=== PATIENT | male | born 1945 | race Caucasian/White ===

== ENCOUNTER 2018-03-25 11:33 | Inpatient (IN) | payer MEDICARE, OTHER, SELFPAY ==
[2018-03-25] VITALS (10 sets, daily range): BP systolic 138–160; BP diastolic 82–111; PULSE 86–109; RESP 16–100; TEMP 36.6–36.9; O2SAT 85–100; BMI 21.6; BMI 21.1
[2018-03-25] MEDS: Ipratropium/Albuterol Sulfate 3 ML AMPUL.NEB INHALATION ×2 (11:55→19:04)
--- NOTE | 2018-03-25 12:02 | EKG12_ITS ---
Test Reason : SOB Blood Pressure : / mmHG Vent. Rate : 096 BPM Atrial Rate : 096 BPM P-R Int : 154 ms QRS Dur : 094 ms QT Int : 358 ms P-R-T Axes : 081 058 080 degrees QTc Int : 452 ms Normal sinus rhythm Normal ECG Confirmed by ASHELY GONSALEZ, KODI ([id number]), food expeditor SAM CALIXTO ([id number]) on 03/29/2018 9:21:27 AM Referred By: ANGEL/JEFF Confirmed By:KODI LUND MD
--- NOTE | 2018-03-25 12:02 | RAD_ITS ---
STUDY: X-RAY CHEST REASON FOR EXAM: Male, 73 years old. Wheezing. TECHNIQUE: AP and lateral views of the chest. COMPARISON: Comparison is made with prior examination dated May 27, 2016. FINDINGS: EKG electrodes are seen. There is hyperinflation of the lungs consistent with chronic obstructive lung disease (COPD). Mild increased markings at the left lung base suggestive of a linear atelectasis. There is blunting of the right costophrenic angle. Normal size heart. Normal mediastinum and rodriguez. There is prominence of the pulmonary hilar arteries without peripheral pulmonary vascular congestion, suggesting pulmonary hypertension. Normal visualized aortic arch and descending thoracic aorta. There is a dextroscoliosis of the thoracic spine. Normal visualized ribs, clavicles, and shoulders. There is no demonstrated abnormality of the visualized soft tissue structures of the upper abdomen. RAD/Chest PA and Lateral IMPRESSION: Hyperinflation. Linear atelectasis at the left lung base. Electronically Signed: Bob Jolley MD at 14:59 EST Tel [phone], Service support ,
--- NOTE | 2018-03-25 12:08 | ED.DCSUM_ITS ---
- ER Visit Summary Date of Service: 03/25/18 Chief Complaint: Generalized weakness History of Present Illness: The patient is a 73 M history of COPD not on home O2 also MS and I retention. Patient presents saying that he is just weak. He states he would not be here for his breathing he thinks at his baseline. However is hypoxic at 82%. He states he feels generally weak all over. He denies any fever. He denies any nausea, vomiting, diarrhea or melena. No dysuria. He does have a cough of sputum which she has had for some time. That is not new. He denies any chest or abdominal pain. He denies any trouble eating. Physical Examination: Older male vital signs stable blood pressure 160/111 afebrile. On oxygen is 100% nonrebreather mask. HEENT exam unremarkable moist weeks membranes. Neck nontender no JVD no lymphadenopathy. Lungs expiratory wheezing throughout both sides. Equal symmetrical. No rales or rhonchi. Heart regular rhythm no murmur appreciated. Abdomen soft nontender. Normal bowel sounds no peritoneal signs. Patient moving all 4 extremities. Calves are nontender without edema or cords. Neurologically is awake alert with no focal motor deficits. Test Results: X-ray shows chronic changes no acute process. EKG sinus rhythm rate of 96 no acute signs of ischemia nor dysrhythmia. CBC White count 8. Hemoglobin 14. No bands. Chemistries unremarkable sodium 132. Gap is 7. Creatinine 0.7. UA normal. Emergency Department Course and Treatment: Treated with albuterol and DuoNeb aerosols. IV Solu-Medrol and oxygen. We will repeat exams patient is doing better after aerosols and IV steroids. Has some mild wheezing. Off the oxygen no he desaturates into the 80s. We attempted to walk him states he is just too weak to even stand. Even at home has difficulty walking due to his MS but he can when he is healthy with assistance. Treatment Plan: I spoke to the hospitalist about admission. Disposition: Admission Impression: Acute generalized weakness with inability to walk Acute dyspnea with hypoxia Acute exacerbation of COPD History of MS This note was generated with [employer] dictation software. It may contain incorrect words, spelling, and punctuation that were not noted in review of the chart prior to signing ED Disposition - Plan for ED Patient: Chief Complaint: Shortness of Breath Referrals: Daquan Flores III, MD [Primary Care Provider] -
[2018-03-25] MEDS: MethylPREDNISolone 125 MG/2 ML Vial IV (12:28)
[2018-03-25 12:48] LABS: Absolute Lymphocyte Count 1.34 X10^3/ul (0.83-4.51); Absolute Neutrophil Count 6.3 X10^3/uL (2.0-7.7); Basophil# 0.03 X10^3/uL; Basophil% 0.4 % (0-1); Eosinophil# 0.13 X10^3/uL; Eosinophils% 1.5 % (0-5); Hematocrit 45.1 % (40-54); Hemoglobin 14.8 g/dl (13.0-16.5); Lymphocyte # 1.34 X10^3/ul (4.0); Lymphocyte % 15.8 % (19-41); Mean Corp Hgb Conc 32.8 g/gl (32-36); Mean Corpuscular Hgb 28.5 pg (27.0-32.0); Mean Corpuscular Volume 86.7 fL (80-94); Mean Platelet Vol. 10.4 fl (6.2-12.0); Monocyte# 0.74 X10^3/uL; Monocyte% 8.7 % (0-10); Neutrophil # 6.25 X10^3/uL (2.7-7.7); Neutrophil % 73.5 % (47-70); Platelet Count 274 K/mm3 (150-450); RBC Distribution Width CV 18.7 % (11.6-14.6); RBC Distribution Width SD 60.1 fl (35.1-43.9); White Blood Count 8.5 K/mm3 (4.4-11.0)
[2018-03-25 12:51] LABS: POSITIVE COUNT NO; POSITIVE DIFFERENTIAL NO; POSITIVE MORPHOLOGY NO
[2018-03-25 12:52] LABS: Anion Gap 7 (5-15); BUN 14 mg/dL (7-18); BUN/Creat Ratio 17.9 RATIO (10-20); Calcium,Total 9.2 mg/dL (8.5-10.1); Chloride 95 mmol/L (98-107); Creatinine, Serum 0.78 mg/dL (0.70-1.30); EST Glomerular Filtration Rate 104 mL/min (>60); Est Glom Filt Rate - Afr Amer 125 mL/min (>60); Estimated Creatinine Clearance 62.62 ml/min; Glucose 96 mg/dL (74-106); Potassium 4.7 mmol/L (3.5-5.1); Sodium Level 132 mmol/L (136-145)
[2018-03-25 14:27] LABS: Bacteria 0 SEEN /hpf (None Seen); Mucous, Urine 0 SEEN /hpf (<or=2+); Red Blood Cells-Urine 0 SEEN /hpf (0-5); Squamous Epithelial Cells - UA 0 SEEN /hpf (0-5)
[2018-03-25 14:35] LABS: Color, Urine Yellow (Yellow); Glucose, Dipstick Normal (Normal); Ketone-Dipstick 15 mg/dl (Negative); Leukocyte Esterase-Dipstick Negative /ul (Negative); Nitrite-Dipstick Negative (Negative); Occult Blood-Urine Negative /ul (Negative); Protein-Dipstick Negative (Negative); Specific Gravity, Urine 1.015 (1.002-1.030); Urine Bilirubin Dipstick Negative (Negative); Urine Clarity Cloudy (Clear); Urine Urobilinogen Normal (Normal)
[2018-03-25 14:41] LABS: Amorphous Sediment 1+; White Blood Cells 0-5 SEEN /hpf (0-5)
--- NOTE | 2018-03-25 15:21 | ED.RN ---
pts o2 removed per physician request. pt unable to ambulate d/t chronic weakness. pt's o2 sat dropped to 89% while sitting in the bed so oxygen replaced and physician aware.
--- NOTE | 2018-03-25 16:12 | HP.PCM_ITS ---
Problem List (1) PEG (percutaneous endoscopic gastrostomy) adjustment/replacement/removal Status: Resolved (2) Depression Status: Chronic Qualifiers: (3) Physical debility Status: Chronic (4) Hypertension Status: Chronic Qualifiers: (5) COPD (chronic obstructive pulmonary disease) Status: Chronic (6) Multiple sclerosis Status: Chronic (7) Acute respiratory failure Status: Acute (8) Empyema of right pleural space Status: Resolved (9) Dysphagia Status: Chronic Qualifiers: (10) Anemia Status: Chronic (11) BPH (benign prostatic hypertrophy) Status: Chronic (12) Vitamin D deficiency Status: Chronic (13) GERD (gastroesophageal reflux disease) Status: Chronic Qualifiers: (14) Ulcerative esophagitis Status: Chronic (15) Gout Status: Chronic Qualifiers: History of Present Illness Date of Admission: 03/25/18 Chief Complaint: Generalized weakness. The patient is a 73 year old M who presents emergency room due to progressive generalized weakness. He has a past medical history of multiple sclerosis, COPD, BPH, GERD, gout, hypertension, depression, physical debility, dysphagia. Ex- at bedside who is POA and caregiver states that patient a respiratory infection in February which was treated by his primary care physician. She reports he has been progressively weaker since that time. Today she states she was unable to help him with activities of daily living due to patient's weakness. Patient denies fever, chills. Denies urinary symptoms. Denies cough or other URI symptoms. He denies shortness of breath. Patient reports he has been sleeping more than normal. Denies decreased appetite or poor oral intake. Patient has been in rehab unit in the past for PT and wishes to return there this admission for strengthening. Past Medical History Past Medical History (Chronic Problems): Chronic Problems (Last Reviewed 01/08/18 @ 11:53 by Cleo Wagner) Depression (Chronic) Physical debility (Chronic) Hypertension (Chronic) COPD (chronic obstructive pulmonary disease) (Chronic) Multiple sclerosis (Chronic) Dysphagia (Chronic) Anemia (Chronic) BPH (benign prostatic hypertrophy) (Chronic) Vitamin D deficiency (Chronic) GERD (gastroesophageal reflux disease) (Chronic) Ulcerative esophagitis (Chronic) Gout (Chronic) Medical History: Medical History (Last Reviewed 01/08/18 @ 11:53 by Cleo Wagner) Depression (Chronic) F32.9 Physical debility (Chronic) R53.81 Hypertension (Chronic) I10 COPD (chronic obstructive pulmonary disease) (Chronic) J44.9 Multiple sclerosis (Chronic) G35 Acute respiratory failure (Acute) J96.00 Dysphagia (Chronic) R13.10 Anemia (Chronic) D64.9 BPH (benign prostatic hypertrophy) (Chronic) N40.0 Vitamin D deficiency (Chronic) E55.9 GERD (gastroesophageal reflux disease) (Chronic) K21.9 Ulcerative esophagitis (Chronic) K22.10 Gout (Chronic) M10.9 Normal colonoscopy Open wound of buttock, complicated S31.809A Empyema of right pleural space (Resolved) J86.9 PEG (percutaneous endoscopic gastrostomy) adjustment/replacement/removal (Resolved) Z43.1 Allergies hydrochlorothiazide Allergy (Verified 03/25/18 11:41) Unknown Home Medications: Ambulatory Orders Medication Instructions Recorded Cholecalciferol (VIT D3) [Vitamin 5,000 unit PO DAILY 02/20/14 D3] Calcium Carbonate 500 mg PO DAILY 04/19/16 Glatiramer Acetate [Copaxone] 40 mg SQ MOWEFR 04/19/16 Dalfampridine [Ampyra] 10 mg PO BID@0900,2100 tab.er.12h 07/14/16 coenzyme Q 10 10 mg capsule 10 mg PO ONCE 02/19/17 lansoprazole 30 mg capsule,delayed 30 mg PO DAILY 02/19/17 release ipratropium-albuterol 0.5 mg-3 3 ml INHALATION TID #180 ml 03/24/17 mg(2.5 mg base)/3 mL nebulization soln budesonide 0.5 mg/2 mL suspension 0.5 mg INHALATION QDAY #60 ml 03/25/17 for nebulization Albuterol Sulfate [Proventil Hfa] 6.7 gm IH Q4H PRN 03/25/18 Amlodipine [Norvasc] 5 mg PO DAILY 03/25/18 Carbamazepine [Tegretol] 100 mg PO DAILY 03/25/18 Carbamazepine [Tegretol] 200 mg PO QHS 03/25/18 Duloxetine Hcl [Cymbalta] 60 mg PO DAILY 03/25/18 Ensure Enlive 237 ml GT QHS 03/25/18 Losartan Potassium [Cozaar] 100 mg PO DAILY 03/25/18 Vitamin B Comp W-C [Allbee W/C 1 capsule PO DAILY MDD \ 03/25/18 Caitlyn Trejo Comp/C] Surgical History: Surgical History (Last Reviewed 01/08/18 @ 11:53 by Cleo Wagner) History of esophagogastroduodenoscopy (EGD) Z98.890 S/P percutaneous endoscopic gastrostomy (PEG) tube placement Z93.1 Surgical History: - - Back surgery x2 (thoracic and cervical) Psychiatric History: Depression Lives: Spouse/ Significant Other Smoking Status: Former smoker Alcohol: Rare Drugs: None - *Family History Maternal Family History: Family History (Last Reviewed 03/25/18 @ 16:13 by MAURI Cho) Mother Colon cancer Breast cancer Lung cancer Father CAD (coronary artery disease) Heart disease History Items: Cancer - 70's Paternal Family History: Family History (Last Reviewed 03/25/18 @ 16:13 by MAURI Cho) Mother Colon cancer Breast cancer Lung cancer Father CAD (coronary artery disease) Heart disease History Items: Heart Disease - age 70's Review of Systems Constitutional: Reports: Weight Change - Former weight loss of about 30lbs. Now stable.. Denies: Chills, Fever HEENT: Denies: Head Aches, Sinus Congestion, Sinus Drainage Cardiovascular: Denies: Chest Pain, Edema, Light Headedness, Palpitations, Syncope Respiratory: Reports: Cough - Chronic, Sputum production - Chronic. Denies: Shortness of Breath Gastrointestinal: Reports: - - PEG tube intact. Denies: Abdominal Pain, Diarrhea, Nausea, Vomiting Genitourinary: Denies: Dysuria, Frequency, Hematuria, Incontinence, Retention Musculoskeletal: Reports: - - Generalized weakness.. Denies: Joint Pain, Joint Tenderness Skin: Denies: Rash, Wounds Neurological: Denies: Numbness, Tingling, Focal weakness Psychiatric: Reports: Depression Hematologic/ Lymphatic: Denies: Easy Bruising, Easy Bleeding VTE Information - Inpt Only VTE Present on Admission: No VTE Mechan Device Prophylaxis: None VTE Pharm Prophylaxis ordered?: Yes - Physical Exam General: Alert, Oriented x3, Cooperative, - - Cachectic HEENT: Atraumatic, PERRLA, EOMI, Normocephalic Oral: Dry Mucosa Neck: Supple, No JVD, Negative Carotid Bruits Lungs: Diminished, Wheezes Cardiovascular: Regular rate, Regular Rhythm, Normal S1, Normal S2, No murmurs Abdomen: Bowel Sounds Present, Soft, Non Tender, Non-Distended Extremities: No clubbing, No cyanosis, No edema, Capillary Refill Less than 3 Seconds Skin: No rashes, No breakdown Musculoskeletal: No Tenderness to Palpation of Joints or Extremities, Cachexia, Muscle Wasting, - - Left ankle brace Neurological: Cranial nerves II-XII grossly intact, Neuro grossly intact Psych/Mental Status: Normal Affect, Appropriate Vital Signs Temp Pulse Resp BP Pulse Ox 98.5 F 90 18 138/83 H 97 03/25/18 11:39 03/25/18 15:30 03/25/18 15:30 03/25/18 15:30 03/25/18 15:30 Oxygen Flow Rate (L/min) 2 Oxygen Delivery Method Nasal Cannula Weight: 146 lb 2.664 oz Body Mass Index (BMI) 21.6 Laboratory Tests Past 24 Hrs 03/25/18 03/25/18 03/25/18 14:20 Unknown Unknown WBC 8.5 RBC 5.20 Hgb 14.8 Hct 45.1 MCV 86.7 MCH 28.5 MCHC 32.8 RDW 18.7 H RDW Differential 60.1 H Plt Count 274 MPV 10.4 Immature Gran % (Auto) 0.100 Neut % (Auto) 73.5 H Lymph % (Auto) 15.8 L [place] % (Auto) 8.7 Eos % (Auto) 1.5 Baso % (Auto) 0.4 Absolute Neuts (auto) 6.3 Absolute Lymphs (auto) 1.34 Total Counted Not Reportable Sodium 132 L Potassium 4.7 Chloride 95 L Carbon Dioxide 30.0 Anion Gap 7 BUN 14 Creatinine 0.78 Estim Creat Clear Calc 62.62 Est GFR (MDRD) Af Amer 125 Est GFR (MDRD) Non-Af 104 BUN/Creatinine Ratio 17.9 Glucose 96 Calcium 9.2 Urine Color Yellow Urine Clarity Cloudy Urine pH 7.0 Ur Specific [place] 1.015 Urine Protein Negative Urine Glucose (UA) Normal Urine Ketones 15 H Urine Occult Blood Negative Urine Nitrite Negative Urine Bilirubin Negative Urine Urobilinogen Normal Ur Leukocyte Esterase Negative Urine RBC 0 SEEN Urine WBC 0-5 SEEN Ur Squamous Epith Cells 0 SEEN Amorphous Sediment 1+ Urine Bacteria 0 SEEN Urine Mucus 0 SEEN Assessment/Plan All Active Problems (Last Reviewed 01/08/18 @ 11:53 by Cleo Wagner) Acute respiratory failure (Acute) Empyema of right pleural space (Resolved) PEG (percutaneous endoscopic gastrostomy) adjustment/replacement/removal (Resolved) 1. Acute hypoxic respiratory insufficiency secondary to COPD exacerbation- patient's oxygen saturation 82% on admission. Chest x-ray shows hyperinflation. Afebrile. No leukocytosis. Continue supplement oxygen to maintain O2 at or above 90%. IV Solu-Medrol. Albuterol DuoNeb aerosols. Check respiratory panel. Walking pulse ox prior to discharge. 2. Physical debility, secondary to MS-associated dysphagia. S/P peg tube for supplemental feedings. PT/OT/ST. Patient requesting rehab unit. CM consult. Continue home medication regimen. 3. Hypertension-stable, continue home amlodipine, losartan regimen. 4. Iron deficiency anemia-continue iron supplementation. 5. GERD-continue PPI. 6. Depression-continue Cymbalta regimen. 7. Gout-not on preventative regimen. DVT prophylaxis-Lovenox subcu This patient was seen by MAURI Cho under the supervision of Dr. Sellers.
[2018-03-25] MEDS: carBAMazepine 200 MG Tablet PO (19:59)
[2018-03-25] MEDS: DALFAMPRIDINE 10 MG TAB.ER.12H PO (19:59)
[2018-03-26] VITALS (7 sets, daily range): BP systolic 122–153; BP diastolic 73–82; PULSE 77–95; RESP 16–20; TEMP 36.6–36.8; O2SAT 93–98
[2018-03-26] MEDS: 0.9% NaCl Peripheral Flush Adult/Peds IV (05:51)
--- NOTE | 2018-03-26 09:27 | PCM.PN.HOSP ---
Subjective: Patient is a 73-year-old gentleman with complicated past medical history including multiple sclerosis,Admitted with progressive shortness of breath, and assessment of acute hypoxic respiratory insufficiency secondary to suspected viral bronchitis made admitted to regular nursing floor for further management. Patient respiratory assay came back positive for RSV Objective: GENERAL: cooperative HEENT: Atraumatic; EYES; Anicteric, Normal Conjunctiva NECK; supple, normal thyroid, RESPIRATORY: Diminished to auscultation bilaterally, CARDIOVASCULAR: Regular S1 S2, no audible murmurs GI: soft, non-tender, normoactive bowel sounds, : No Renal angle tenderness; EXTREMITIES: No edema, no clubbing, no cyanosis. NEURO: Awake; no lateralizing signs. PSYCH; Normal affect Vitals/I&O's: Vital Signs Temp Pulse Resp BP Pulse Ox 98.0 F 77 16 122/74 H 93 03/26/18 02:26 03/26/18 02:26 03/26/18 02:26 03/26/18 02:26 03/26/18 02:26 Oxygen Flow Rate (L/min) 2 Oxygen Delivery Method Nasal Cannula Weight: 64.864 kg Body Mass Index (BMI) 21.1 Intake and Output for Last 24 Hours 03/24/18 03/25/18 03/26/18 23:59 23:59 23:59 Intake Total 120 / 120 300 / 300 Output Total 200 / 200 400 / 400 Balance -80 / -80 -100 / -100 Microbiology Past 72 Hours 03/25/18 16:40 Mucosa - Nasopharyngeal Respiratory Panel (PCR) - Final RSV B Laboratory Results 03/25/18 14:20: Urine Color Yellow, Urine Clarity Cloudy, Urine pH 7.0, Ur Specific [place] 1.015, Urine Protein Negative, Urine Glucose (UA) Normal, Urine Ketones 15 H, Urine Occult Blood Negative, Urine Nitrite Negative, Urine Bilirubin Negative, Urine Urobilinogen Normal, Ur Leukocyte Esterase Negative, Urine RBC 0 SEEN, Urine WBC 0-5 SEEN, Ur Squamous Epith Cells 0 SEEN, Amorphous Sediment 1+, Urine Bacteria 0 SEEN, Urine Mucus 0 SEEN 03/25/18 : WBC 8.5, RBC 5.20, Hgb 14.8, Hct 45.1, MCV 86.7, MCH 28.5, MCHC 32.8, RDW 18.7 H, RDW Differential 60.1 H, Plt Count 274, MPV 10.4, Immature Gran % (Auto) 0.100, Neut % (Auto) 73.5 H, Lymph % (Auto) 15.8 L, [place] % (Auto) 8.7, Eos % (Auto) 1.5, Baso % (Auto) 0.4, Absolute Neuts (auto) 6.3, Absolute Lymphs (auto) 1.34, Total Counted Not Reportable 03/25/18 : Sodium 132 L, Potassium 4.7, Chloride 95 L, Carbon Dioxide 30.0, Anion Gap 7, BUN 14, Creatinine 0.78, Estim Creat Clear Calc 62.62, Est GFR (MDRD) Af Amer 125, Est GFR (MDRD) Non-Af 104, BUN/Creatinine Ratio 17.9, Glucose 96, Calcium 9.2 Current Medications Acetaminophen (Tylenol) 650 mg PO Q6H PRN PRN PRN Reason: Mild Pain (scale 0-3)/T>100.7 Albuterol Sulfate (Ventolin Aerosols) 2.5 mg INHALATION Q2H PRN PRN PRN Reason: SHORTNESS OF BREATH Albuterol/Ipratropium (Duoneb) 3 ml INHALATION Q4H.RT [facility] Last Admin: 03/26/18 07:55 Dose: Not Given Amlodipine Besylate (Norvasc) 5 mg PO DAILY [facility] Calcium Carbonate (Os-Eulogio 500) 500 mg PO DAILYCM [facility] Carbamazepine (Tegretol) 100 mg PO DAILY [facility] Carbamazepine (Tegretol) 200 mg PO QHS [facility] Last Admin: 03/25/18 19:59 Dose: 200 mg Duloxetine HCl (Cymbalta) 60 mg PO DAILY [facility] Glatiramer Acetate (Copaxone) 40 mg SQ MOWEFR [facility] Losartan Potassium (Cozaar) 100 mg PO DAILY [facility] Magnesium Hydroxide (Milk Of Magnesia) 30 ml PO DAILY PRN PRN PRN Reason: Constipation Methylprednisolone (Solu-Medrol) 40 mg IV Q8 [facility] Last Admin: 03/26/18 05:51 Dose: 40 mg Multivitamins (Allbee W/C Caplet, Thera B Comp[facility]C) [facility] Oxycodone HCl (Oxyir) 5 mg PO Q4H PRN PRN PRN Reason: Moderate Pain (pain scale 4-5) Pantoprazole Sodium (Protonix) 40 mg PO DAILY [facility] Sodium Chloride () 5 - 15 ml IV UD PRN PRN Reason: SALINE FLUSH Last Admin: 03/26/18 05:51 Dose: 10 ml Medical Necessity - Tobacco Use Smoking Status: Former smoker Tobacco Use: Cigarettes Assessment/Plan All Active Problems (Last Reviewed 01/08/18 @ 11:53 by Cleo Wagnre) Acute respiratory failure (Acute) Empyema of right pleural space (Resolved) PEG (percutaneous endoscopic gastrostomy) adjustment/replacement/removal (Resolved) Patient is a 73-year-old gentleman with complicated past medical history including multiple sclerosis,Admitted with progressive shortness of breath, and assessment of acute hypoxic respiratory insufficiency secondary to suspected viral bronchitis made admitted to regular nursing floor for further management. 1. Acute hypoxic respiratory insufficiency secondary to acute viral bronchitis. Patient respiratory panel came back positive for RSV. Admitted to regular nursing floor currently being managed with aerosol treatment, steroids and symptomatic management 2. Multiple sclerosis patients on Copaxone did continue 3. Depression patient is on Cymbalta 4. Chronic severe protein calorie malnutrition status post PEG tube placement 5. Hypertension-blood pressure controlled, home medications continued with dose adjustment as needed 6. Gout 7. Physical deconditioning in the context of multiple medical comorbidities; requested for physical and occupational therapy elevation and treatment. 8. DVT prophylaxis SC Lovenox Clinical Impression(s) from Imaging Studies Chest X-Ray 03/25/18 12:02 IMPRESSION: Hyperinflation. Linear atelectasis at the left lung base. Electronically Signed: Bob Jolley MD at 14:59 EST Tel [phone], Service support , Active Medications Acetaminophen (Tylenol) 650 mg PO Q6H PRN PRN PRN Reason: Mild Pain (scale 0-3)/T>100.7 Albuterol Sulfate (Ventolin Aerosols) 2.5 mg INHALATION Q2H PRN PRN PRN Reason: SHORTNESS OF BREATH Albuterol/Ipratropium (Duoneb) 3 ml INHALATION Q4H.RT [facility] Last Admin: 03/26/18 11:38 Dose: 3 ml Amlodipine Besylate (Norvasc) 5 mg PO DAILY [facility] Last Admin: 03/26/18 10:09 Dose: 5 mg Calcium Carbonate (Os-Eulogio 500) [facility] Last Admin: 03/26/18 10:08 Dose: 500 mg Carbamazepine (Tegretol) 100 mg PO DAILY [facility] Last Admin: 03/26/18 10:12 Dose: 100 mg Carbamazepine (Tegretol) 200 mg PO QHS [facility] Last Admin: 03/25/18 19:59 Dose: 200 mg Duloxetine HCl (Cymbalta) 60 mg PO DAILY [facility] Last Admin: 03/26/18 10:10 Dose: 60 mg Glatiramer Acetate (Copaxone) 40 mg SQ MOWEFR [facility] Last Admin: 03/26/18 10:13 Dose: 40 mg Losartan Potassium (Cozaar) 100 mg PO DAILY [facility] Last Admin: 03/26/18 10:11 Dose: 100 mg Magnesium Hydroxide (Milk Of Magnesia) 30 ml PO DAILY PRN PRN PRN Reason: Constipation Methylprednisolone (Solu-Medrol) 40 mg IV Q8 [facility] Last Admin: 03/26/18 05:51 Dose: 40 mg Multivitamins (Allbee W/C Caplet, Thera B Comp/C) [facility] Last Admin: 03/26/18 10:11 Dose: 1 capsule Oxycodone HCl (Oxyir) 5 mg PO Q4H PRN PRN PRN Reason: Moderate Pain (pain scale 4-5) Pantoprazole Sodium (Protonix) 40 mg PO DAILY [facility] Last Admin: 03/26/18 10:09 Dose: 40 mg Sodium Chloride () 5 - 15 ml IV UD PRN PRN Reason: SALINE FLUSH Last Admin: 03/26/18 05:51 Dose: 10 ml Code Visit Inpatient E&M: [id number] Subs Hosp L3
[2018-03-26] MEDS: Calcium (Elemental) 500 MG Tablet PO (10:08)
[2018-03-26] MEDS: Pantoprazole Sodium 40 MG Tablet PO (10:09)
[2018-03-26] MEDS: amLODIPine 5 MG Tablet PO (10:09)
[2018-03-26] MEDS: DULoxetine Hcl 60 MG Capsule PO (10:10)
[2018-03-26] MEDS: Vitamin B Comp W-C Capsule 1 CAP PO (10:11)
[2018-03-26] MEDS: Losartan Potassium 100 MG Tablet PO (10:11)
[2018-03-26] MEDS: DALFAMPRIDINE 10 MG TAB.ER.12H PO ×2 (10:11→21:40)
[2018-03-26] MEDS: carBAMazepine 200 MG Tablet 100 MG PO (10:12)
[2018-03-26] MEDS: GLATIRAMER ACETATE 40 MG/ML SQ (10:13)
--- NOTE | 2018-03-26 10:35 | CASEMGMT ---
ERIN MILLER Face to Face with patient for initial transition planning/care coordination assessment. ERIN MILLER introduced self and role at [facility]. Patient lying in bed, alert and oriented, at bedside. Patient willing to participate in assessment and is able to answer all questions appropriately. Care providers, pharmacy, and demographics verified. Patient wishes to discharge to inpatient rehab unit. Patient states he has no further needs or concerns at this time. ELAINE Tariq updated regarding request for inpatient rehab unit PCP: Sandra Specialists: Arthur neurologist; Derrek field installation technician Preferred Pharmacy: [facility] Insurance: [facility] Prescription Benefit: YES Living Will/HPOA: Yes, Johanne Dang LNOK: Living Arrangements: Patient lives in 2 story home with stair lift to second floor. Patient requires assistance with ADLs from . Transportation: DME/HHC: Patient has stair lift, lift chair, shower chair, BSC, raised toilet seat, grab bars, hand held shower, walker, WC, nebulizer. Patient has had [facility] in the past and also has been to [facility] Disposition Plan: Inpatient Acute rehab. Cherie RITTER, RN, CM
[2018-03-26] MEDS: Ipratropium/Albuterol Sulfate 3 ML AMPUL.NEB INHALATION ×2 (11:38→19:50)
--- NOTE | 2018-03-26 12:51 | CPS ---
O2 on at bedside.
--- NOTE | 2018-03-26 13:09 | PCM.CONS.GEN ---
Problem List (1) Multiple sclerosis Status: Chronic Reason for Consult Date of Consultation: 03/26/18 Reason for Consultation: MS History of Present Illness: The patient is a 73 year old M with PMH HTN, MS, BPH, COPD, H/'O cervical surgery (records not available) admitted with generalized weakness and hypoxemia. Neurology consulted as patient has h/o MS. History is obtained from patient and his emergency care tech (ex-) with whom he lives. Per ex- he was diagnosed with RRMS in [address] Campos from [facility], had gait instability initially when he was diagnosed with MS around 2009, then about 3 yrs later had ЮЛИЯ and double vision probably from description, had steroids in the past for relapse. Has been tried on Aubagio in the past, had some tolerance issues and at present is on Copaxone. During this admission found to have COPD exacerbation and RSV B infection. Lives with Ex-, uses walker to ambulate, does not drive, needs assistance for all his ADLs, had baseline chronic neurological symptoms of ataxia and left leg weakness following his neck surgery per ex-. Started on steroids by hospitalist for COPD exacerbation. Denies any HAIRSTON, new onset visual disturbances, speech disturbances, focal motor weakness or sensory loss. [] Past Medical History Past Medical History (Chronic Problems): Chronic Problems (Last Reviewed 01/08/18 @ 11:53 by Cleo Wagner) Depression (Chronic) Physical debility (Chronic) Hypertension (Chronic) COPD (chronic obstructive pulmonary disease) (Chronic) Multiple sclerosis (Chronic) Dysphagia (Chronic) Anemia (Chronic) BPH (benign prostatic hypertrophy) (Chronic) Vitamin D deficiency (Chronic) GERD (gastroesophageal reflux disease) (Chronic) Ulcerative esophagitis (Chronic) Gout (Chronic) Medical History: Medical History (Last Reviewed 01/08/18 @ 11:53 by Cleo Wagner) Depression (Chronic) F32.9 Physical debility (Chronic) R53.81 Hypertension (Chronic) I10 COPD (chronic obstructive pulmonary disease) (Chronic) J44.9 Multiple sclerosis (Chronic) G35 Acute respiratory failure (Acute) J96.00 Dysphagia (Chronic) R13.10 Anemia (Chronic) D64.9 BPH (benign prostatic hypertrophy) (Chronic) N40.0 Vitamin D deficiency (Chronic) E55.9 GERD (gastroesophageal reflux disease) (Chronic) K21.9 Ulcerative esophagitis (Chronic) K22.10 Gout (Chronic) M10.9 Normal colonoscopy Open wound of buttock, complicated S31.809A Empyema of right pleural space (Resolved) J86.9 PEG (percutaneous endoscopic gastrostomy) adjustment/replacement/removal (Resolved) Z43.1 Allergies hydrochlorothiazide Allergy (Verified 03/25/18 11:41) Unknown Home Medications: Ambulatory Orders Medication Instructions Recorded Cholecalciferol (VIT D3) [Vitamin 5,000 unit PO DAILY 02/20/14 D3] Calcium Carbonate 500 mg PO DAILY 04/19/16 Glatiramer Acetate [Copaxone] 40 mg SQ MOWEFR 04/19/16 Dalfampridine [Ampyra] 10 mg PO BID@0900,2100 tab.er.12h 07/14/16 coenzyme Q 10 10 mg capsule 10 mg PO ONCE 02/19/17 lansoprazole 30 mg capsule,delayed 30 mg PO DAILY 02/19/17 release ipratropium-albuterol 0.5 mg-3 3 ml INHALATION TID #180 ml 03/24/17 mg(2.5 mg base)/3 mL nebulization soln budesonide 0.5 mg/2 mL suspension 0.5 mg INHALATION QDAY #60 ml 03/25/17 for nebulization Albuterol Sulfate [Proventil Hfa] 6.7 gm IH Q4H PRN 03/25/18 Amlodipine [Norvasc] 5 mg PO DAILY 03/25/18 Carbamazepine [Tegretol] 100 mg PO DAILY 03/25/18 Carbamazepine [Tegretol] 200 mg PO QHS 03/25/18 Duloxetine Hcl [Cymbalta] 60 mg PO DAILY 03/25/18 Ensure Enlive 237 ml GT QHS 03/25/18 Losartan Potassium [Cozaar] 100 mg PO DAILY 03/25/18 Vitamin B Comp W-C [Allbee W/C 1 capsule PO DAILY MDD \ 03/25/18 Caitlyn Trejo B Comp/C] Surgical History: Surgical History (Last Reviewed 01/08/18 @ 11:53 by Cleo Wagner) History of esophagogastroduodenoscopy (EGD) Z98.890 S/P percutaneous endoscopic gastrostomy (PEG) tube placement Z93.1 Surgical History: - - Back surgery x2 (thoracic and cervical) Psychiatric History: Depression Lives: Spouse/ Significant Other Smoking Status: Former smoker Tobacco Use: Cigarettes Alcohol: Rare Drugs: None - *Family History Maternal Family History: Family History (Last Reviewed 03/25/18 @ 16:13 by MAURI Cho) Mother Colon cancer Breast cancer Lung cancer Father CAD (coronary artery disease) Heart disease History Items: Cancer - 70's Paternal Family History: Family History (Last Reviewed 03/25/18 @ 16:13 by MAURI Cho) Mother Colon cancer Breast cancer Lung cancer Father CAD (coronary artery disease) Heart disease History Items: Heart Disease - age 70's Review of Systems Constitutional: Reports: - - complete ROS negative except as documented in HPI - Physical Exam General: Alert HEENT: Normocephalic Neck: Supple Lungs: Normal air movement, Wheezes Cardiovascular: Normal S1, Normal S2 Abdomen: Bowel Sounds Present Extremities: No cyanosis Neurological: - - consious, alert, CN 2-12 grossly intact 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-), power 5/5 both UE and right LE, 4/5 left LE, has left LE ankle brace, denies any sensory loss, Reflexes + B/L B/S/T/K/A, gait deferred, mild ataxia B/L UE (chronic per Ex-) Vital Signs Temp Pulse Resp BP Pulse Ox 98.1 F 90 16 153/77 H 93 03/26/18 09:56 03/26/18 11:38 03/26/18 11:38 03/26/18 09:56 03/26/18 11:38 Oxygen Flow Rate (L/min) 2 Oxygen Delivery Method Room Air Weight: 64.8 kg Body Mass Index (BMI) 21.1 Intake and Output for Last 24 Hours 03/24/18 03/25/18 03/26/18 23:59 23:59 23:59 Intake Total 120 / 120 960 / 960 Output Total 200 / 200 400 / 400 Balance -80 / -80 560 / 560 Microbiology Past 72 Hours 03/25/18 16:40 Respiratory Panel (PCR) - Final Mucosa - Nasopharyngeal RSV B Laboratory Tests Past 24 Hrs 03/25/18 14:20 Urine Color Yellow Urine Clarity Cloudy Urine pH 7.0 Ur Specific [place] 1.015 Urine Protein Negative Urine Glucose (UA) Normal Urine Ketones 15 H Urine Occult Blood Negative Urine Nitrite Negative Urine Bilirubin Negative Urine Urobilinogen Normal Ur Leukocyte Esterase Negative Urine RBC 0 SEEN Urine WBC 0-5 SEEN Ur Squamous Epith Cells 0 SEEN Amorphous Sediment 1+ Urine Bacteria 0 SEEN Urine Mucus 0 SEEN Assessment/Plan All Active Problems (Last Reviewed 01/08/18 @ 11:53 by Cleo Wagner) Acute respiratory failure (Acute) Empyema of right pleural space (Resolved) PEG (percutaneous endoscopic gastrostomy) adjustment/replacement/removal (Resolved) The patient is a 73 year old M with PMH HTN, MS, BPH, COPD, H/'O cervical surgery (records not available) admitted with generalized weakness and hypoxemia. Neurology consulted as patient has h/o MS. History is obtained from patient and his emergency care tech (ex-) with whom he lives. Per ex- he was diagnosed with RRMS in [address] Campos from [facility], had gait instability initially when he was diagnosed with MS around 2009, then about 3 yrs later had ЮЛИЯ and double vision probably from description, had steroids in the past for relapse. Has been tried on Aubagio in the past, had some tolerance issues and at present is on Copaxone. During this admission found to have COPD exacerbation and RSV B infection. Lives with Ex-, uses walker to ambulate, does not drive, needs assistance for all his ADLs, had baseline chronic neurological symptoms of ataxia and left leg weakness following his neck surgery per ex-. Started on steroids by hospitalist for COPD exacerbation. Denies any HAIRSTON, new onset visual disturbances, speech disturbances, focal motor weakness or sensory loss. Impression History of RRMS Plan -Continue Copaxone and Ampyra at home doses -Unlikely to be MS exacerbation at present -Patient found to have COPD exacerbation, admitted with hypoxemia and found to have RSV B infection -Follow up with Dr. Campos [facility] for MS in 4-6 weeks -Fall precautions -PT/OT -GI/DVT prophylaxis -Further medical management per hospitalist -Please call with questions if any -Thank you for allowing us to participate in patient's care and management Code Visit Inpatient E&M: [id number] Init Hosp L3
--- NOTE | 2018-03-26 14:27 | CASEMGMT ---
Social Work Note RN ANGELA Underwood informed this worker that pt and pt's family are wanting [facility] at discharge for pt. ELAINE placed a call to Corrie and provided referral. Corrie strates she will talk to Dr. Jacobo about referral. ELAINE spoke with Corrie with [facility] stating she is able to accept pt Thursday as Dr. Jacobo would like to reevaluate pt on Thursday. ELAINE updated RN who states she will update pt and pt's family. Physician updated. Plan: [facility] Thursday Cherie Tariq ASSOCIATE PROFESSOR OF PSYCHOLOGY, PLANT CONTROLS SPECIALIST
[2018-03-26] MEDS: carBAMazepine 200 MG Tablet PO (21:39)
[2018-03-27] VITALS (8 sets, daily range): BP systolic 122–139; BP diastolic 68–77; PULSE 74–91; RESP 16–24; TEMP 36.4–36.8; O2SAT 94–97
[2018-03-27] MEDS: Ipratropium/Albuterol Sulfate 3 ML AMPUL.NEB INHALATION ×3 (07:05→19:17)
--- NOTE | 2018-03-27 07:44 | PCM.PN.HOSP ---
Subjective: Patient seen breathing status continues to improve. Currently undergoing PT with plans for patient to be discharged to the inpatient rehab unit Objective: GENERAL: cooperative HEENT: Atraumatic; EYES; Anicteric, Normal Conjunctiva NECK; supple, normal thyroid, RESPIRATORY: Diminished to auscultation bilaterally, CARDIOVASCULAR: Regular S1 S2, no audible murmurs GI: soft, non-tender, normoactive bowel sounds, : No Renal angle tenderness; EXTREMITIES: No edema, no clubbing, no cyanosis. NEURO: Awake; no lateralizing signs. PSYCH; Normal affect Vitals/I&O's: Vital Signs Temp Pulse Resp BP Pulse Ox 97.5 F L 79 16 133/77 H 94 03/27/18 02:11 03/27/18 02:11 03/27/18 02:11 03/27/18 02:11 03/27/18 02:11 Oxygen Flow Rate (L/min) 2 Oxygen Delivery Method Nasal Cannula Weight: 64.8 kg Body Mass Index (BMI) 21.1 Intake and Output for Last 24 Hours 03/25/18 03/26/18 03/27/18 23:59 23:59 23:59 Intake Total 120 / 120 1320 / 1320 325 / 325 Output Total 200 / 200 400 / 400 250 / 250 Balance -80 / -80 920 / 920 75 / 75 Microbiology Past 72 Hours 03/25/18 16:40 Mucosa - Nasopharyngeal Respiratory Panel (PCR) - Final RSV B Current Medications Acetaminophen (Tylenol) 650 mg PO Q6H PRN PRN PRN Reason: Mild Pain (scale 0-3)/T>100.7 Albuterol Sulfate (Ventolin Aerosols) 2.5 mg INHALATION Q2H PRN PRN PRN Reason: SHORTNESS OF BREATH Albuterol/Ipratropium (Duoneb) 3 ml INHALATION Q6HWA.RT [facility] Last Admin: 03/27/18 07:05 Dose: 3 ml Amlodipine Besylate (Norvasc) 5 mg PO DAILY [facility] Last Admin: 03/26/18 10:09 Dose: 5 mg Calcium Carbonate (Os-Eulogio 500) [facility] Last Admin: 03/26/18 10:08 Dose: 500 mg Carbamazepine (Tegretol) 100 mg PO DAILY [facility] Last Admin: 03/26/18 10:12 Dose: 100 mg Carbamazepine (Tegretol) 200 mg PO QHS [facility] Last Admin: 03/26/18 21:39 Dose: 200 mg Duloxetine HCl (Cymbalta) 60 mg PO DAILY [facility] Last Admin: 03/26/18 10:10 Dose: 60 mg Glatiramer Acetate (Copaxone) 40 mg SQ MOWEFR [facility] Last Admin: 03/26/18 10:13 Dose: 40 mg Losartan Potassium (Cozaar) 100 mg PO DAILY [facility] Last Admin: 03/26/18 10:11 Dose: 100 mg Magnesium Hydroxide (Milk Of Magnesia) 30 ml PO DAILY PRN PRN PRN Reason: Constipation Methylprednisolone (Solu-Medrol) 40 mg IV Q8 [facility] Last Admin: 03/27/18 06:25 Dose: 40 mg Multivitamins (Allbee W/C Caplet, Thera B Comp/C) 1 capsule PO DAILYCM [facility] Last Admin: 03/26/18 10:11 Dose: 1 capsule Oxycodone HCl (Oxyir) 5 mg PO Q4H PRN PRN PRN Reason: Moderate Pain (pain scale 4-5) Pantoprazole Sodium (Protonix) 40 mg PO DAILY [facility] Last Admin: 03/26/18 10:09 Dose: 40 mg Sodium Chloride () 5 - 15 ml IV UD PRN PRN Reason: SALINE FLUSH Last Admin: 03/26/18 05:51 Dose: 10 ml Medical Necessity - Tobacco Use Smoking Status: Former smoker Tobacco Use: Cigarettes Assessment/Plan All Active Problems (Last Reviewed 01/08/18 @ 11:53 by Cleo Wagner) Acute respiratory failure (Acute) Empyema of right pleural space (Resolved) PEG (percutaneous endoscopic gastrostomy) adjustment/replacement/removal (Resolved) Patient is a 73-year-old gentleman with complicated past medical history including multiple sclerosis,Admitted with progressive shortness of breath, and assessment of acute hypoxic respiratory insufficiency secondary to suspected viral bronchitis made admitted to regular nursing floor for further management. 1. Acute hypoxic respiratory insufficiency secondary to acute viral bronchitis. Patient respiratory panel came back positive for RSV. Admitted to regular nursing floor currently being managed with aerosol treatment, steroids and symptomatic management 2. Acute COPD exacerbation secondary to acute viral bronchitis with RSV B. Management as discussed above 3. Multiple sclerosis patients on Copaxone did continue 4. Depression patient is on Cymbalta 5. Chronic severe protein calorie malnutrition status post PEG tube placement 6. Hypertension-blood pressure controlled, home medications continued with dose adjustment as needed 7. Gout 8. Physical deconditioning in the context of multiple medical comorbidities; requested for physical and occupational therapy elevation and treatment. 9. DVT prophylaxis LINDA [place] Code Visit Inpatient E&M: [id number] Subs Hosp L2
[2018-03-27] MEDS: Vitamin B Comp W-C Capsule 1 CAP PO (08:04)
[2018-03-27] MEDS: Calcium (Elemental) 500 MG Tablet PO (08:04)
[2018-03-27] MEDS: DALFAMPRIDINE 10 MG TAB.ER.12H PO ×2 (08:05→21:04)
[2018-03-27] MEDS: Pantoprazole Sodium 40 MG Tablet PO (10:39)
[2018-03-27] MEDS: carBAMazepine 200 MG Tablet 100 MG PO (10:39)
[2018-03-27] MEDS: amLODIPine 5 MG Tablet PO (10:39)
[2018-03-27] MEDS: Losartan Potassium 100 MG Tablet PO (10:39)
[2018-03-27] MEDS: DULoxetine Hcl 60 MG Capsule PO (10:39)
[2018-03-27] MEDS: 0.9% NaCl Peripheral Flush Adult/Peds IV ×2 (13:35→21:05)
--- NOTE | 2018-03-27 19:23 | CPS ---
Pt refuses chest vest at this time.
[2018-03-27] MEDS: carBAMazepine 200 MG Tablet PO (21:07)
[2018-03-28] VITALS (7 sets, daily range): BP systolic 118–146; BP diastolic 71–81; PULSE 66–97; RESP 16–20; TEMP 36.6; O2SAT 93–98
[2018-03-28] MEDS: 0.9% NaCl Peripheral Flush Adult/Peds IV ×2 (05:47→13:31)
[2018-03-28] MEDS: Ipratropium/Albuterol Sulfate 3 ML AMPUL.NEB INHALATION ×3 (06:51→19:20)
[2018-03-28] MEDS: Calcium (Elemental) 500 MG Tablet PO (08:04)
[2018-03-28] MEDS: Losartan Potassium 100 MG Tablet PO (08:04)
[2018-03-28] MEDS: Vitamin B Comp W-C Capsule 1 CAP PO (08:04)
[2018-03-28] MEDS: DULoxetine Hcl 60 MG Capsule PO (08:04)
[2018-03-28] MEDS: carBAMazepine 200 MG Tablet 100 MG PO (08:04)
[2018-03-28] MEDS: Pantoprazole Sodium 40 MG Tablet PO (08:05)
[2018-03-28] MEDS: amLODIPine 5 MG Tablet PO (08:05)
[2018-03-28] MEDS: DALFAMPRIDINE 10 MG TAB.ER.12H PO ×2 (08:05→21:14)
--- NOTE | 2018-03-28 08:25 | PN_ITS ---
Subjective: Patient was weaned off oxygen this a.m. Plan is for patient to be assessed for rehab admission on 03/29/2018 Objective: GENERAL: cooperative HEENT: Atraumatic; EYES; Anicteric, Normal Conjunctiva NECK; supple, normal thyroid, RESPIRATORY: Diminished to auscultation bilaterally, CARDIOVASCULAR: Regular S1 S2, no audible murmurs GI: soft, non-tender, normoactive bowel sounds, : No Renal angle tenderness; EXTREMITIES: No edema, no clubbing, no cyanosis. NEURO: Awake; no lateralizing signs. PSYCH; Normal affect Vitals/I&O's: Vital Signs Temp Pulse Resp BP Pulse Ox 97.8 F 78 20 H 146/81 H 95 03/28/18 08:10 03/28/18 08:10 03/28/18 08:10 03/28/18 08:10 03/28/18 08:10 Oxygen Flow Rate (L/min) 2 Oxygen Delivery Method Room Air Weight: 64.8 kg Body Mass Index (BMI) 21.1 Intake and Output for Last 24 Hours 03/26/18 03/27/18 03/28/18 23:59 23:59 23:59 Intake Total 1320 / 1320 1625 / 1625 Output Total 400 / 400 1650 / 1650 600 / 600 Balance 920 / 920 -25 / -25 -600 / -600 Microbiology Past 72 Hours 03/25/18 16:40 Mucosa - Nasopharyngeal Respiratory Panel (PCR) - Final RSV B Current Medications Acetaminophen (Tylenol) 650 mg PO Q6H PRN PRN PRN Reason: Mild Pain (scale 0-3)/T>100.7 Albuterol Sulfate (Ventolin Aerosols) 2.5 mg INHALATION Q2H PRN PRN PRN Reason: SHORTNESS OF BREATH Albuterol/Ipratropium (Duoneb) 3 ml INHALATION Q6HWA.RT [facility] Last Admin: 03/28/18 06:51 Dose: 3 ml Amlodipine Besylate (Norvasc) 5 mg PO DAILY [facility] Last Admin: 03/28/18 08:05 Dose: 5 mg Calcium Carbonate (Os-Eulogio 500) [facility] Last Admin: 03/28/18 08:04 Dose: 500 mg Carbamazepine (Tegretol) 100 mg PO DAILY [facility] Last Admin: 03/28/18 08:04 Dose: 100 mg Carbamazepine (Tegretol) 200 mg PO QHS [facility] Last Admin: 03/27/18 21:07 Dose: 200 mg Duloxetine HCl (Cymbalta) 60 mg PO DAILY [facility] Last Admin: 03/28/18 08:04 Dose: 60 mg Glatiramer Acetate (Copaxone) 40 mg SQ MOWEFR [facility] Last Admin: 03/26/18 10:13 Dose: 40 mg Losartan Potassium (Cozaar) 100 mg PO DAILY [facility] Last Admin: 03/28/18 08:04 Dose: 100 mg Magnesium Hydroxide (Milk Of Magnesia) 30 ml PO DAILY PRN PRN PRN Reason: Constipation Methylprednisolone (Solu-Medrol) 40 mg IV Q8 [facility] Last Admin: 03/28/18 05:47 Dose: 40 mg Multivitamins (Allbee W/C Caplet, Thera B Comp/C) 1 capsule PO DAILYCM [facility] Last Admin: 03/28/18 08:04 Dose: 1 capsule Oxycodone HCl (Oxyir) 5 mg PO Q4H PRN PRN PRN Reason: Moderate Pain (pain scale 4-5) Pantoprazole Sodium (Protonix) 40 mg PO DAILY [facility] Last Admin: 03/28/18 08:05 Dose: 40 mg Sodium Chloride () 5 - 15 ml IV UD PRN PRN Reason: SALINE FLUSH Last Admin: 03/28/18 05:47 Dose: 10 ml Medical Necessity - Tobacco Use Smoking Status: Former smoker Tobacco Use: Cigarettes Assessment/Plan All Active Problems (Last Reviewed 01/08/18 @ 11:53 by Cleo Wagner) Acute respiratory failure (Acute) Empyema of right pleural space (Resolved) PEG (percutaneous endoscopic gastrostomy) adjustment/replacement/removal (Resolved) Patient is a 73-year-old gentleman with complicated past medical history including multiple sclerosis,Admitted with progressive shortness of breath, and assessment of acute hypoxic respiratory insufficiency secondary to suspected viral bronchitis made admitted to regular nursing floor for further management. 1. Acute hypoxic respiratory insufficiency secondary to acute viral bronchitis. Patient respiratory panel came back positive for RSV. Admitted to regular nursing floor currently being managed with aerosol treatment, steroids and symptomatic management patient is improving clinically. 2. Acute COPD exacerbation secondary to acute viral bronchitis with RSV B. Management as discussed above 3. Multiple sclerosis patients on Copaxone did continue 4. Depression patient is on Cymbalta 5. Chronic severe protein calorie malnutrition status post PEG tube placement 6. Hypertension-blood pressure controlled, home medications continued with dose adjustment as needed 7. Gout 8. Physical deconditioning in the context of multiple medical comorbidities; requested for physical and occupational therapy elevation and treatment. Plan is for patient to be assessed for rehab admission on 03/29/2018 9. DVT prophylaxis [place] Code Visit Inpatient E&M: [id number] Subs Hosp L2
[2018-03-28 09:04] LABS: Hemoglobin 14.2 g/dl (13.0-16.5); Mean Corpuscular Volume 87.9 fL (80-94); Mean Platelet Vol. 10.3 fl (6.2-12.0); Platelet Count 233 K/mm3 (150-450); RBC Distribution Width CV 18.9 % (11.6-14.6); Red Blood Count 4.89 M/mm3 (4.6-6.2); White Blood Count 11.6 K/mm3 (4.4-11.0)
[2018-03-28 09:05] LABS: Scan Indicated on CBC? Y/N NO
[2018-03-28 09:13] LABS: Anion Gap 8 (5-15); BUN 17 mg/dL (7-18); BUN/Creat Ratio 21.3 RATIO (10-20); Calcium,Total 8.9 mg/dL (8.5-10.1); Chloride 97 mmol/L (98-107); EST Glomerular Filtration Rate 101 mL/min (>60); Est Glom Filt Rate - Afr Amer 123 mL/min (>60); Glucose 98 mg/dL (74-106); Magnesium 2.1 mg/dL (1.6-2.6); Sodium Level 134 mmol/L (136-145)
[2018-03-28] MEDS: Magnesium Hydroxide 30 ML UDC PO (18:38)
[2018-03-28] MEDS: carBAMazepine 200 MG Tablet PO (21:13)
[2018-03-29 03:34] VITALS: BP 130/72; PULSE 88; RESP 18; TEMP 36.7; O2SAT 96
[2018-03-29] MEDS: 0.9% NaCl Peripheral Flush Adult/Peds IV (05:34)
[2018-03-29 05:59] LABS: Anion Gap 7 (5-15); BUN 23 mg/dL (7-18); BUN/Creat Ratio 30.2 RATIO (10-20); Calcium,Total 8.9 mg/dL (8.5-10.1); Chloride 100 mmol/L (98-107); Creatinine, Serum 0.76 mg/dL (0.70-1.30); EST Glomerular Filtration Rate 107 mL/min (>60); Est Glom Filt Rate - Afr Amer 129 mL/min (>60); Glucose 95 mg/dL (74-106); Potassium 4.4 mmol/L (3.5-5.1); Sodium Level 138 mmol/L (136-145)
[2018-03-29 06:28] LABS: Hemoglobin 13.5 g/dl (13.0-16.5); Mean Corp Hgb Conc 32.9 g/gl (32-36); Mean Corpuscular Hgb 28.8 pg (27.0-32.0); Mean Corpuscular Volume 87.6 fL (80-94); Mean Platelet Vol. 10.5 fl (6.2-12.0); Platelet Count 243 K/mm3 (150-450); RBC Distribution Width CV 19.5 % (11.6-14.6); RBC Distribution Width SD 61.8 fl (35.1-43.9); Red Blood Count 4.68 M/mm3 (4.6-6.2)
[2018-03-29 06:43] LABS: Scan Indicated on CBC? Y/N NO
[2018-03-29 07:28] VITALS: PULSE 88; RESP 20; O2SAT 92
[2018-03-29] MEDS: Ipratropium/Albuterol Sulfate 3 ML AMPUL.NEB INHALATION ×2 (07:28→12:52)
[2018-03-29 08:20] VITALS: BP 132/78; PULSE 84; RESP 16; TEMP 36.8; O2SAT 97
[2018-03-29] MEDS: Calcium (Elemental) 500 MG Tablet PO (08:26)
[2018-03-29] MEDS: Vitamin B Comp W-C Capsule 1 CAP PO (08:26)
[2018-03-29] MEDS: DALFAMPRIDINE 10 MG TAB.ER.12H PO (08:29)
--- NOTE | 2018-03-29 09:42 | CASEMGMT ---
Social Work Note SW spoke with Corrie with [facility], informed her that pt has been weaned off oxygen. Per Corrie she would like PT to review pt's notes and evaluate pt again to determine if pt is appropriate for [facility]. Plan: [facility] pending acceptance Cherie Tariq UX RESEARCH ASSOCIATE, SEED CORE OPERATOR
[2018-03-29] MEDS: amLODIPine 5 MG Tablet PO (11:01)
[2018-03-29] MEDS: GLATIRAMER ACETATE 40 MG/ML SQ (11:01)
[2018-03-29] MEDS: Pantoprazole Sodium 40 MG Tablet PO (11:01)
[2018-03-29] MEDS: Losartan Potassium 100 MG Tablet PO (11:01)
[2018-03-29] MEDS: DULoxetine Hcl 60 MG Capsule PO (11:01)
[2018-03-29] MEDS: carBAMazepine 200 MG Tablet 100 MG PO (11:02)
--- NOTE | 2018-03-29 12:00 | PCM.HP.STD ---
History of Present Illness Date of Admission: 03/29/18 Chief Complaint: Debility Rehab H&P: Mr. Laura is a 73-year-old male with a history of MS, COPD, who was admitted with weakness and diagnosed with RSV. He has been in isolation. He was diagnosed in 2009 with relapsing remitting multiple sclerosis by Dr. Hernandez, has previously been on Aubagio and currently is on Copaxone. He also has COPD. He normally lives at home with his , uses a walker to ambulate, does not drive. He is now admitted to the rehab unit with debility with a goal of returning his functional status back to his normal baseline so he can live independently again. Past Medical History Past Medical History (Chronic Problems): Chronic Problems (Last Reviewed 03/29/18 @ 12:02 by Maciel Salas MD) Depression (Chronic) Physical debility (Chronic) Hypertension (Chronic) COPD (chronic obstructive pulmonary disease) (Chronic) Multiple sclerosis (Chronic) Dysphagia (Chronic) Anemia (Chronic) BPH (benign prostatic hypertrophy) (Chronic) Vitamin D deficiency (Chronic) GERD (gastroesophageal reflux disease) (Chronic) Ulcerative esophagitis (Chronic) Gout (Chronic) Medical History: Medical History (Last Reviewed 03/31/18 @ 09:53 by Maciel Salas MD) Depression (Chronic) F32.9 Physical debility (Chronic) R53.81 Hypertension (Chronic) I10 COPD (chronic obstructive pulmonary disease) (Chronic) J44.9 Multiple sclerosis (Chronic) G35 Acute respiratory failure (Acute) J96.00 Dysphagia (Chronic) R13.10 Anemia (Chronic) D64.9 BPH (benign prostatic hypertrophy) (Chronic) N40.0 Vitamin D deficiency (Chronic) E55.9 GERD (gastroesophageal reflux disease) (Chronic) K21.9 Ulcerative esophagitis (Chronic) K22.10 Gout (Chronic) M10.9 Normal colonoscopy Open wound of buttock, complicated S31.809A Empyema of right pleural space (Resolved) J86.9 PEG (percutaneous endoscopic gastrostomy) adjustment/replacement/removal (Resolved) Z43.1 Allergies hydrochlorothiazide Allergy (Verified 03/25/18 11:41) Unknown Home Medications: Ambulatory Orders Medication Instructions Recorded RX: Cholecalciferol (VIT D3) 5,000 unit PO DAILY 02/20/14 [Vitamin D3] RX: Calcium Carbonate 500 mg PO DAILY 04/19/16 RX: Glatiramer Acetate [Copaxone] 40 mg SQ MOWEFR 04/19/16 coenzyme Q 10 10 mg capsule 10 mg PO ONCE 02/19/17 lansoprazole 30 mg capsule,delayed 30 mg PO DAILY 02/19/17 release ipratropium-albuterol 0.5 mg-3 3 ml INHALATION TID #180 ml 03/24/17 mg(2.5 mg base)/3 mL nebulization soln budesonide 0.5 mg/2 mL suspension 0.5 mg INHALATION QDAY #60 ml 03/25/17 for nebulization RX: Albuterol Sulfate [Proventil 6.7 gm IH Q4H PRN 03/25/18 Hfa] RX: Amlodipine [Norvasc] 5 mg PO DAILY 03/25/18 RX: Carbamazepine [Tegretol] 100 mg PO DAILY 03/25/18 RX: Carbamazepine [Tegretol] 200 mg PO QHS 03/25/18 RX: Duloxetine Hcl [Cymbalta] 60 mg PO DAILY 03/25/18 RX: Ensure Enlive 237 ml GT QHS 03/25/18 RX: Losartan Potassium [Cozaar] 100 mg PO DAILY 03/25/18 RX: Vitamin B Comp W-C [Allbee W/C 1 capsule PO DAILY MDD \ 03/25/18 Caplet, Thera B Comp/C] RX: Dalfampridine [Ampyra] 10 mg PO BID@0900,2100 03/29/18 RX: Prednisone [Deltasone] 40 mg PO DAILY 03/29/18 Surgical History: Surgical History (Last Reviewed 03/31/18 @ 09:53 by Maciel Salas MD) History of esophagogastroduodenoscopy (EGD) Z98.890 S/P percutaneous endoscopic gastrostomy (PEG) tube placement Z93.1 Surgical History: - - Back surgery x2 (thoracic and cervical) Psychiatric History: Depression Lives: Spouse/ Significant Other Smoking Status: Former smoker Tobacco Use: Cigarettes Alcohol: Rare Drugs: None - *Family History Maternal Family History: Family History (Last Reviewed 03/31/18 @ 09:53 by Maciel Salas MD) Mother Colon cancer Breast cancer Lung cancer Father CAD (coronary artery disease) Heart disease History Items: Cancer - 70's Paternal Family History: Family History (Last Reviewed 03/31/18 @ 09:53 by Maciel Salas MD) Mother Colon cancer Breast cancer Lung cancer Father CAD (coronary artery disease) Heart disease History Items: Heart Disease - age 70's Review of Systems Constitutional: Denies: Chills, Fever, Weight Change HEENT: Denies: Head Aches, Sinus Congestion, Sinus Drainage Cardiovascular: Denies: Chest Pain, Palpitations Respiratory: Reports: Shortness of Breath. Denies: Cough, Shortness of breath at rest, Sputum production Gastrointestinal: Denies: Abdominal Pain, Nausea, Vomiting Genitourinary: Denies: Dysuria Musculoskeletal: Denies: Joint Pain, Joint Tenderness Skin: Denies: Rash, Wounds Neurological: Denies: Numbness, Tingling, Focal weakness Psychiatric: Denies: Anxiety, Depression, Homicidal Ideations, Suicidal Ideations Hematologic/ Lymphatic: Denies: Easy Bruising, Easy Bleeding VTE Information - Inpt Only VTE Present on Admission: Yes VTE Pharm Prophylaxis ordered?: Yes - Physical Exam General: Alert, Oriented x3 Cardiovascular: Regular rate Extremities: No Calf Tenderness Neurological: Slurred Speech, - - He has spasticity of speech as well as bilateral upper and lower extremity spasticity worse on the left side with decreased coordination on the left. Sensation appears intact. Psych/Mental Status: Normal Affect, Alert and oriented to time, place, person, mood and affect Vital Signs Temp Pulse Resp BP Pulse Ox 36.8 C 84 16 132/78 H 97 03/29/18 08:20 03/29/18 08:20 03/29/18 08:20 03/29/18 08:20 03/29/18 08:20 Oxygen Flow Rate (L/min) 2 Oxygen Delivery Method Room Air Weight: 64.8 kg Body Mass Index (BMI) 21.1 Intake and Output for Last 24 Hours 03/27/18 03/28/18 03/29/18 23:59 23:59 23:59 Intake Total 1625 / 1625 850 / 850 Output Total 1650 / 1650 1200 / 1200 250 / 250 Balance -25 / -25 -350 / -350 -250 / -250 Microbiology Past 72 Hours 03/25/18 16:40 Respiratory Panel (PCR) - Final Mucosa - Nasopharyngeal RSV B Laboratory Tests Past 24 Hrs 03/29/18 03/29/18 05:02 05:02 WBC 9.0 RBC 4.68 Hgb 13.5 Hct 41.0 MCV 87.6 MCH 28.8 MCHC 32.9 RDW 19.5 H RDW Differential 61.8 H Plt Count 243 MPV 10.5 Sodium 138 Potassium 4.4 Chloride 100 Carbon Dioxide 31.0 Anion Gap 7 BUN 23 H Creatinine 0.76 Estim Creat Clear Calc 61.20 Est GFR (MDRD) Af Amer 129 Est GFR (MDRD) Non-Af 107 BUN/Creatinine Ratio 30.2 H Glucose 95 Calcium 8.9 Assessment/Plan All Active Problems (Last Reviewed 03/29/18 @ 12:02 by Maciel Salas MD) Acute respiratory failure (Acute) Empyema of right pleural space (Resolved) PEG (percutaneous endoscopic gastrostomy) adjustment/replacement/removal (Resolved) Debility due to RSV complicated by COPD and underlying MS. Goal of rehab is anabaptism of prior level of functional independence. Plan: Physical therapy for gait and balance Occupational Therapy for ADLs PRN analgesics Continue Copaxone As needed aerosols PRN analgesics Bowel protocol
--- NOTE | 2018-03-29 12:04 | CASEMGMT ---
Addendum entered by Cherie Tariq 03/29/18 12:10: Physician and pt updated on approval to discharge to [facility] today. Original Note: Social Work Note SW spoke with Corrie who states pt is good to discharge to [facility] today. 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
--- NOTE | 2018-03-29 12:48 | DCINST_ITS ---
You will use the following diet at home:: Regular Your food should be the consistency of: Regular Your liquids should be the consistency of: Regular/Thin Discharge Activity: No Restrictions Call your doctor if you observe: Coldness, Increased Pain, Shortness of breath, Dizziness, Fainting spells, Chest pain, Increased palpitations (irregular heartbeat) Allergies/Adverse Reactions: Allergies hydrochlorothiazide Allergy (Verified 03/25/18 11:41) Unknown Medications to take at Discharge Cholecalciferol (VIT D3) [Vitamin D3] 5,000 unit PO DAILY 02/20/14 Calcium Carbonate 500 mg PO DAILY 04/19/16 Glatiramer Acetate [Copaxone] 40 mg SQ MOWEFR 04/19/16 Dalfampridine [Ampyra] 10 mg PO BID@0900,2100 tab.er.12h 07/14/16 coenzyme Q 10 10 mg capsule 10 mg PO ONCE 02/19/17 lansoprazole 30 mg capsule,delayed release 30 mg PO DAILY 02/19/17 ipratropium-albuterol 0.5 mg-3 mg(2.5 mg base)/3 mL nebulization soln 3 ml INHALATION TID #180 ml 03/24/17 budesonide 0.5 mg/2 mL suspension for nebulization 0.5 mg INHALATION QDAY #60 ml 03/25/17 Albuterol Sulfate [Proventil Hfa] 6.7 gm IH Q4H PRN 03/25/18 Amlodipine [Norvasc] 5 mg PO DAILY 03/25/18 Carbamazepine [Tegretol] 100 mg PO DAILY 03/25/18 Carbamazepine [Tegretol] 200 mg PO QHS 03/25/18 Duloxetine Hcl [Cymbalta] 60 mg PO DAILY 03/25/18 Ensure Enlive 237 ml GT QHS 03/25/18 Losartan Potassium [Cozaar] 100 mg PO DAILY 03/25/18 Vitamin B Comp W-C [Allbee W/C Caplet, Thera B Comp/C] 1 capsule PO DAILY MDD \ 03/25/18 Primary Care Physician: Daquan Flores III, MD [Primary Care Provider] - Please follow up with your Primary Care Physician in: 3-5 days Test Results: Test results from this visit will be discussed in further detail at your follow- up appointment, if applicable.
--- NOTE | 2018-03-29 12:48 | PCM.DC.SUM ---
Discharge Date and Diagnosis Date of Admission: 03/29/18 Date of Discharge: 03/29/18 - Secondary Discharge Diagnosis Chronic Problems (Last Reviewed 03/29/18 @ 12:02 by Maciel Salas MD) Depression (Chronic) Physical debility (Chronic) Hypertension (Chronic) COPD (chronic obstructive pulmonary disease) (Chronic) Multiple sclerosis (Chronic) Dysphagia (Chronic) Anemia (Chronic) BPH (benign prostatic hypertrophy) (Chronic) Vitamin D deficiency (Chronic) GERD (gastroesophageal reflux disease) (Chronic) Ulcerative esophagitis (Chronic) Gout (Chronic) Hospital Course and Treatment Imaging Results: CXR: IMPRESSION: Hyperinflation. Linear atelectasis at the left lung base. Consults: None Operations: None Procedures: None Summary of Care Provided: Per HPI: The patient is a 73 year old M who presents emergency room due to progressive generalized weakness. He has a past medical history of multiple sclerosis, COPD, BPH, GERD, gout, hypertension, depression, physical debility, dysphagia. Ex- at bedside who is POA and caregiver states that patient a respiratory infection in February which was treated by his primary care physician. She reports he has been progressively weaker since that time. Today she states she was unable to help him with activities of daily living due to patient's weakness. Patient denies fever, chills. Denies urinary symptoms. Denies cough or other URI symptoms. He denies shortness of breath. Patient reports he has been sleeping more than normal. Denies decreased appetite or poor oral intake. Patient has been in rehab unit in the past for PT and wishes to return there this admission for strengthening. Hospital Course: 1. Acute hypoxic respiratory insufficiency secondary to acute viral bronchitis/acute COPD exacerbation secondary to acute viral bronchitis with RSV B -73-year-old male who presented to the emergency room for progressive generalized weakness. He had a viral upper respiratory infection in February which left him pretty weak. He was admitted and found to have RSV B infection. He was started on aerosols as well as Solu-Medrol IV which she has tolerated very well. On the day of discharge she was completely off of oxygen was evaluated by neurology for admission to the inpatient rehab unit which she qualifies for. We will plan to discharge him on his inhalers as well as prednisone daily for 7 days. 2. His other medical diagnoses were evaluated and his home medications were continued were appropriate - Physical Exam General: Alert, Oriented x3, Cooperative, No apparent distress HEENT: Atraumatic, EOMI, Normocephalic Oral: Moist Mucosa Neck: Supple, No JVD Lungs: Clear to auscultation, Normal air movement, No rhonchi, No wheeze, No rales, Diminished Cardiovascular: Regular rate, Regular Rhythm, Normal S1, Normal S2, No murmurs Abdomen: Soft, Non Tender, Non-Distended, No Hepato-splenomegaly Extremities: No edema, Capillary Refill Less than 3 Seconds Skin: No rashes, No breakdown Neurological: Neuro grossly intact, Sensory exam intact to light touch and pain Vital Signs Temp Pulse Resp BP Pulse Ox 98.3 F 84 16 132/78 H 97 03/29/18 08:20 03/29/18 08:20 03/29/18 08:20 03/29/18 08:20 03/29/18 08:20 Oxygen Flow Rate (L/min) 2 Oxygen Delivery Method Room Air Weight: 142 lb 13.753 oz Body Mass Index (BMI) 21.1 Intake and Output for Last 24 Hours 03/27/18 03/28/18 03/29/18 23:59 23:59 23:59 Intake Total 1625 / 1625 850 / 850 Output Total 1650 / 1650 1200 / 1200 250 / 250 Balance -25 / -25 -350 / -350 -250 / -250 Laboratory Tests Past 24 Hrs 03/29/18 03/29/18 05:02 05:02 WBC 9.0 RBC 4.68 Hgb 13.5 Hct 41.0 MCV 87.6 MCH 28.8 MCHC 32.9 RDW 19.5 H RDW Differential 61.8 H Plt Count 243 MPV 10.5 Sodium 138 Potassium 4.4 Chloride 100 Carbon Dioxide 31.0 Anion Gap 7 BUN 23 H Creatinine 0.76 Estim Creat Clear Calc 61.20 Est GFR (MDRD) Af Amer 129 Est GFR (MDRD) Non-Af 107 BUN/Creatinine Ratio 30.2 H Glucose 95 Calcium 8.9 Discharge Activity: No Restrictions Call your doctor if you observe: Coldness, Increased Pain, Shortness of breath, Dizziness, Fainting spells, Chest pain, Increased palpitations (irregular heartbeat) Home Medications: Medications to take at Discharge Cholecalciferol (VIT D3) [Vitamin D3] 5,000 unit PO DAILY 02/20/14 Calcium Carbonate 500 mg PO DAILY 04/19/16 Glatiramer Acetate [Copaxone] 40 mg SQ MOWEFR 04/19/16 Dalfampridine [Ampyra] 10 mg PO BID@0900,2100 tab.er.12h 07/14/16 coenzyme Q 10 10 mg capsule 10 mg PO ONCE 02/19/17 lansoprazole 30 mg capsule,delayed release 30 mg PO DAILY 02/19/17 ipratropium-albuterol 0.5 mg-3 mg(2.5 mg base)/3 mL nebulization soln 3 ml INHALATION TID #180 ml 03/24/17 budesonide 0.5 mg/2 mL suspension for nebulization 0.5 mg INHALATION QDAY #60 ml 03/25/17 Albuterol Sulfate [Proventil Hfa] 6.7 gm IH Q4H PRN 03/25/18 Amlodipine [Norvasc] 5 mg PO DAILY 03/25/18 Carbamazepine [Tegretol] 100 mg PO DAILY 03/25/18 Carbamazepine [Tegretol] 200 mg PO QHS 03/25/18 Duloxetine Hcl [Cymbalta] 60 mg PO DAILY 03/25/18 Ensure Enlive 237 ml GT QHS 03/25/18 Losartan Potassium [Cozaar] 100 mg PO DAILY 03/25/18 Vitamin B Comp W-C [Allbee W/C Caplet, Thera B Comp/C] 1 capsule PO DAILY MDD \ 03/25/18 Primary Care Physician: Daquan Flores III, MD [Primary Care Provider] - Please follow up with your Primary Care Physician in: 3-5 days Disposition: Inpt Rehab Unit/Facility Minutes spent on discharge:: 35 Patient Condition:: Stable Medical Necessity - Tobacco Use Smoking Status: Former smoker Tobacco Use: Cigarettes Meaningful Use Info Meaningful Use Diagnoses (Choose all that apply): None applicable Code Visit Inpatient E&M: 18949 Disch Hosp
[2018-03-29 12:52] VITALS: PULSE 85; RESP 20
--- OUTSIDE RECORDS SUMMARY | 2018-05-30 05:25 | XMS RPT_ITS ---
:1945 Author Organization OHIP Support Name Relationship Address Phone ERASMO DANG Unavailable [address] + [place] [address] R Unavailable Unavailable Unavailable MOWRER, ERASMO Unavailable [address] + [place] [address] R Unavailable Unavailable Unavailable MOWRER, ERASMO Unavailable [address] + [place] [address] R Unavailable Unavailable Unavailable MOWRER, ERASMO Unavailable [address] + [place] [address] R Unavailable Unavailable Unavailable MOWRER, ERASMO Unavailable [address] + [place] [address] R Unavailable Unavailable Unavailable MOWRER, ERASMO Unavailable [address] + [place] [address] R Unavailable Unavailable Unavailable MOWRER, ERASMO Unavailable [address] + [place] [address] R Unavailable Unavailable Unavailable MOWRER, ERASMO Unavailable [address] + [place] [address] R Unavailable Unavailable Unavailable MOWRER, ERASMO Unavailable [address] + [place] [address] R Unavailable Unavailable Unavailable MOWRER, ERASMO Unavailable [address] + [place] [address] R Unavailable Unavailable Unavailable MOWRER, ERASMO Unavailable [address] + [place] [address] R Unavailable Unavailable Unavailable Care Team Providers Name Role Phone LUCIABUL IIIDAQUAN A Attending Unavailable CEBUL III, DAQUAN A Referring Unavailable CEBUL III, DAQUAN A Referring Unavailable CEBUL III, DAQUAN A Referring Unavailable CEBUL III, DAQUAN A Attending Unavailable CEBUL III, DAQUAN A Referring Unavailable CEBUL III, DAQUAN A Referring Unavailable CEBUL III, DAQUAN A Referring Unavailable CEBUL III, DAQUAN A Attending Unavailable CEBUL III, DAQUAN A Referring Unavailable Cebul III, Daquan Primary Care Unavailable Sementi, Kenyetta Admitting Unavailable Randall, Bi S. Consulting Unavailable Abrahan Valencia Attending Unavailable Sementi, Kenyetta Admitting Unavailable Isabella Ibry NP-C Attending Unavailable Cebul III, Daquan Primary Care Unavailable Sementi, Kenyteta Consulting Unavailable Sementi, Kenyetta Admitting Unavailable KittoSilver gonzalez Attending Unavailable Cebul III, Daquan Primary Care Unavailable Randall, Bi S. Consulting Unavailable Silver Mendoza Consulting Unavailable Sementi, Kenyetta Admitting Unavailable KittoSilver gonzalez Attending Unavailable Cebul III, Daquan Primary Care Unavailable Randall, Bi S. Consulting Unavailable Silver Mendoza Consulting Unavailable Sementi, Kenyetta Admitting Unavailable KittoSilver gonzalez Attending Unavailable Cebul III, Daquan Primary Care Unavailable Randall, Bi S. Consulting Unavailable Silver Mendoza Consulting Unavailable Sementi, Kenyetta Admitting Unavailable Abrahan Valencia Attending Unavailable Cebul III, Daquan Primary Care Unavailable Randall, Bi S. Consulting Unavailable Abrahan Valencia Consulting Unavailable Cebul, William Attending Unavailable Cebul III, Daquan Referring Unavailable Cebul, William Attending Unavailable Cebul III, Daquan Referring Unavailable Cebul III, Daquan Primary Care Unavailable Cebul, William Attending Unavailable Cebul III, Daquan Referring Unavailable Maciel Salas Admitting Unavailable Maciel Salas Attending Unavailable Maciel Salas Referring Unavailable Cebul III, Daquan Primary Care Unavailable Abrahan Valencia Consulting Unavailable Maciel Salas Admitting Unavailable Abraahn Valencia Attending Unavailable Maciel Salas Referring Unavailable Cebul III, Daquan Primary Care Unavailable Abrahan Valencia Consulting Unavailable Maciel Salas Consulting Unavailable PROBLEMS PROBLEMS DATE TYPE CONDITION / CODE ATTENDING STATUS SOURCE 03/04/2018 Active 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 Repository (chronic) / D50.0(ICD-10) 03/04/2018 Active Cough / NA Active [facility] R05(ICD-10) [place] Repository 01/08/2018 Unknown R13.10 - William Flores Active [place] [facility]ysphagia, Community unspecified / Hospital R13.10(ICD-10) Repository 11/11/2017 Active Vitamin D NA Active [facility] deficiency, [place] unspecified / Repository E55.9(ICD-10) 07/28/2017 Unknown L89.150 - Pressure William Flores Active [place] ulcer of sacral [facility] region, Hospital unstageable / Repository L89.150(ICD-10) 08/18/2016 Active Iron deficiency NA Active [facility] anemia, [place] unspecified / Repository D50.9(ICD-10) 01/26/2014 Active Multiple sclerosis NA Active [facility] / G35(ICD-10) [place] Repository 05/25/2017 Active Other iron NA Active [facility] deficiency anemias [place] / D50.8(ICD-10) Repository 05/25/2017 Active 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 Repository / J41.8(ICD-10) PROCEDURES PROCEDURES No Procedure Records FoundRESULTS RESULTS CONSULTATION Observed: 04/02/2018 Status: F Source: [place] 1:49 PM [facility] REPOSITORY [facility] Medical Records Department [address] [place] [address] Consultation 03/26/18 1309 MR#: [id number] Acct: [id number] Name: PETE DANG Rep #: [id number] : 1945 73 From: Bi Pereira MD PCP: Daquan Flores III, MD Status: DIS IN Y Location: MS3 [id number] Problem List (1) Multiple sclerosis Status: Chronic Reason for Consult Date of Consultation: 03/26/18 Reason for Consultation: MS History of Present Illness: The patient is a 73 year old M with PMH HTN, MS, BPH, COPD, H/'O cervical surgery (records not available) admitted with generalized weakness and hypoxemia. Neurology consulted as patient has h/o MS. History is obtained from patient and his aged or disabled carer (ex-) with whom he lives. Per ex- he was diagnosed with RRMS in [address] Campos from [facility], had gait instability initially when he was diagnosed with MS around 2009, then about 3 yrs later had ЮЛИЯ and double vision probably from description, had steroids in the past for relapse. Has been tried on Aubagio in the past, had some tolerance issues and at present is on Copaxone. During this admission found to have COPD exacerbation and RSV B infection. Lives with Ex-, uses walker to ambulate, does not drive, needs assistance for all his ADLs, had baseline chronic neurological symptoms of ataxia and left leg weakness following his neck surgery per ex-. Started on steroids by hospitalist for COPD exacerbation. Denies any HAIRSTON, new onset visual disturbances, speech disturbances, focal motor weakness or sensory loss. [] Past Medical History Past Medical History (Chronic Problems): Chronic Problems (Last Reviewed 01/08/18 @ 11:53 by Cleo Wagner) Depression (Chronic) Physical debility (Chronic) Hypertension (Chronic) COPD (chronic obstructive pulmonary disease) (Chronic) Multiple sclerosis (Chronic) Dysphagia (Chronic) Anemia (Chronic) BPH (benign prostatic hypertrophy) (Chronic) Vitamin D deficiency (Chronic) GERD (gastroesophageal reflux disease) (Chronic) Ulcerative esophagitis (Chronic) Gout (Chronic) Medical History: Medical History (Last Reviewed 01/08/18 @ 11:53 by Cleo Wagner) Depression (Chronic) F32.9 Physical debility (Chronic) R53.81 Hypertension (Chronic) I10 COPD (chronic obstructive pulmonary disease) (Chronic) J44.9 Multiple sclerosis (Chronic) G35 Acute respiratory failure (Acute) J96.00 Dysphagia (Chronic) R13.10 Anemia (Chronic) D64.9 BPH (benign prostatic hypertrophy) (Chronic) N40.0 Vitamin D deficiency (Chronic) E55.9 GERD (gastroesophageal reflux disease) (Chronic) K21.9 Ulcerative esophagitis (Chronic) K22.10 Gout (Chronic) M10.9 Normal colonoscopy Open wound of buttock, complicated S31.809A Empyema of right pleural space (Resolved) J86.9 PEG (percutaneous endoscopic gastrostomy) adjustment/replacement/removal (Resolved) Z43.1 Allergies hydrochlorothiazide Allergy (Verified 03/25/18 11:41) Unknown Home Medications: Ambulatory Orders Medication Instructions Recorded Cholecalciferol (VIT D3) [Vitamin 5,000 unit PO DAILY 02/20/14 Surgical History: Surgical History (Last Reviewed 01/08/18 @ 11:53 by Cleo Wagner) History of esophagogastroduodenoscopy (EGD) Z98.890 S/P percutaneous endoscopic gastrostomy (PEG) tube placement Z93.1 Surgical History: - - Back surgery x2 (thoracic and cervical) Psychiatric History: Depression Lives: Spouse/ Significant Other Smoking Status: Former smoker Tobacco Use: Cigarettes Alcohol: Rare Drugs: None - *Family History Maternal Family History: Family History (Last Reviewed 03/25/18 @ 16:13 by MAURI Cho) Mother Colon cancer Breast cancer Lung cancer Father CAD (coronary artery disease) Heart disease History Items: Cancer - 70's Paternal Family History: Family History (Last Reviewed 03/25/18 @ 16:13 by MAURI Cho) Mother Colon cancer Breast cancer Lung cancer Father CAD (coronary artery disease) Heart disease History Items: Heart Disease - age 70's Review of Systems Constitutional: Reports: - - complete ROS negative except as documented in HPI - Physical Exam General: Alert HEENT: Normocephalic Neck: Supple Lungs: Normal air movement, Wheezes Cardiovascular: Normal S1, Normal S2 Abdomen: Bowel Sounds Present Extremities: No cyanosis Neurological: - - consious, alert, CN 2-12 grossly intact 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-), power 5/5 both UE and right LE, 4/5 left LE, has left LE ankle brace, denies any sensory loss, Reflexes + B/L B/S/T/K/A, gait deferred, mild ataxia B/L UE (chronic per Ex-) Vital Signs Temp Pulse Resp BP Pulse Ox 98.1 F 90 16 153/77 H 93 03/26/18 09:56 03/26/18 11:38 03/26/18 11:38 03/26/18 09:56 03/26/18 11:38 Oxygen Flow Rate (L/min) 2 Oxygen Delivery Method Room Air Weight: 64.8 kg Body Mass Index (BMI) 21.1 Intake and Output for Last 24 Hours Intake Total 120 / 120 960 / 960 Output Total 200 / 200 400 / 400 Balance -80 / -80 560 / 560 Microbiology Past 72 Hours 03/25/18 16:40 Respiratory Panel (PCR) - Final Mucosa - Nasopharyngeal RSV B Laboratory Tests Past 24 Hrs Urine Color Yellow Urine Clarity Cloudy Urine pH 7.0 Ur Specific [place] 1.015 Assessment/Plan All Active Problems (Last Reviewed 01/08/18 @ 11:53 by Cleo Wagner) Acute respiratory failure (Acute) Empyema of right pleural space (Resolved) PEG (percutaneous endoscopic gastrostomy) adjustment/replacement/removal (Resolved) The patient is a 73 year old M with PMH HTN, MS, BPH, COPD, H/'O cervical surgery (records not available) admitted with generalized weakness and hypoxemia. Neurology consulted as patient has h/o MS. History is obtained from patient and his aged or disabled carer (ex-) with whom he lives. Per ex- he was diagnosed with RRMS in [address] Campos from [facility], had gait instability initially when he was diagnosed with MS around 2009, then about 3 yrs later had ЮЛИЯ and double vision probably from description, had steroids in the past for relapse. Has been tried on Aubagio in the past, had some tolerance issues and at present is on Copaxone. During this admission found to have COPD exacerbation and RSV B infection. Lives with Ex-, uses walker to ambulate, does not drive, needs assistance for all his ADLs, had baseline chronic neurological symptoms of ataxia and left leg weakness following his neck surgery per ex-. Started on steroids by hospitalist for COPD exacerbation. Denies any HAIRSTON, new onset visual disturbances, speech disturbances, focal motor weakness or sensory loss. Impression History of RRMS Plan -Continue Copaxone and Ampyra at home doses -Unlikely to be MS exacerbation at present -Patient found to have COPD exacerbation, admitted with hypoxemia and found to have RSV B infection -Follow up with Dr. Campos [facility] for MS in 4-6 weeks -Fall precautions -PT/OT -GI/DVT prophylaxis -Further medical management per hospitalist -Please call with questions if any -Thank you for allowing us to participate in patient's care and management Code Visit Inpatient E AND M: [id number] Init Hosp L3 04/02/18 0762 <Electronically signed by Bi Pereira MD> Date Bi Pereira MD Cosigner Signature (if applicable): Date CC: Dale Pereira MD; Daquan Flores III, MD Signed HISTORY AND PHYSICAL Observed: 03/31/2018 Status: F Source: [place] EXAM 9:55 AM [facility] REPOSITORY [facility] Medical Records Department [address] [place] [address] History and Physical 03/29/18 1200 MR#: [id number] Acct: [id number] Name: PETE DANG Rep #: [id number] : 1945 73 From: Maciel Salas MD PCP: Daquan Flores III, MD Status: DIS IN Y Location: MS3 [id number] History of Present Illness Date of Admission: 03/29/18 Chief Complaint: Debility Rehab H AND P: Mr. Laura is a 73-year-old male with a history of MS, COPD, who was admitted with weakness and diagnosed with RSV. He has been in isolation. He was diagnosed in 2009 with relapsing remitting multiple sclerosis by Dr. Hernandez, has previously been on Aubagio and currently is on Copaxone. He also has COPD. He normally lives at home with his , uses a walker to ambulate, does not drive. He is now admitted to the rehab unit with debility with a goal of returning his functional status back to his normal baseline so he can live independently again. Past Medical History Past Medical History (Chronic Problems): Chronic Problems (Last Reviewed 03/29/18 @ 12:02 by Maciel Salas MD) Depression (Chronic) Physical debility (Chronic) Hypertension (Chronic) COPD (chronic obstructive pulmonary disease) (Chronic) Multiple sclerosis (Chronic) Dysphagia (Chronic) Anemia (Chronic) BPH (benign prostatic hypertrophy) (Chronic) Vitamin D deficiency (Chronic) GERD (gastroesophageal reflux disease) (Chronic) Ulcerative esophagitis (Chronic) Gout (Chronic) Medical History: Medical History (Last Reviewed 03/31/18 @ 09:53 by Maciel Salas MD) Depression (Chronic) F32.9 Physical debility (Chronic) R53.81 Hypertension (Chronic) I10 COPD (chronic obstructive pulmonary disease) (Chronic) J44.9 Multiple sclerosis (Chronic) G35 Acute respiratory failure (Acute) J96.00 Dysphagia (Chronic) R13.10 Anemia (Chronic) D64.9 BPH (benign prostatic hypertrophy) (Chronic) N40.0 Vitamin D deficiency (Chronic) E55.9 GERD (gastroesophageal reflux disease) (Chronic) K21.9 Ulcerative esophagitis (Chronic) K22.10 Gout (Chronic) M10.9 Normal colonoscopy Open wound of buttock, complicated S31.809A Empyema of right pleural space (Resolved) J86.9 PEG (percutaneous endoscopic gastrostomy) adjustment/replacement/removal (Resolved) Z43.1 Allergies hydrochlorothiazide Allergy (Verified 03/25/18 11:41) Unknown Home Medications: Ambulatory Orders Medication Instructions Recorded RX: Cholecalciferol (VIT D3) 5,000 unit PO DAILY 02/20/14 [Vitamin D3] RX: Calcium Carbonate 500 mg PO DAILY 04/19/16 Surgical History: Surgical History (Last Reviewed 03/31/18 @ 09:53 by Maciel Salas MD) History of esophagogastroduodenoscopy (EGD) Z98.890 S/P percutaneous endoscopic gastrostomy (PEG) tube placement Z93.1 Surgical History: - - Back surgery x2 (thoracic and cervical) Psychiatric History: Depression Lives: Spouse/ Significant Other Smoking Status: Former smoker Tobacco Use: Cigarettes Alcohol: Rare Drugs: None - *Family History Maternal Family History: Family History (Last Reviewed 03/31/18 @ 09:53 by Maciel Salas MD) Mother Colon cancer Breast cancer Lung cancer Father CAD (coronary artery disease) Heart disease History Items: Cancer - 70's Paternal Family History: Family History (Last Reviewed 03/31/18 @ 09:53 by Maciel Salas MD) Mother Colon cancer Breast cancer Lung cancer Father CAD (coronary artery disease) Heart disease History Items: Heart Disease - age 70's Review of Systems Constitutional: Denies: Chills, Fever, Weight Change HEENT: Denies: Head Aches, Sinus Congestion, Sinus Drainage Cardiovascular: Denies: Chest Pain, Palpitations Respiratory: Reports: Shortness of Breath. Denies: Cough, Shortness of breath at rest, Sputum production Gastrointestinal: Denies: Abdominal Pain, Nausea, Vomiting Genitourinary: Denies: Dysuria Musculoskeletal: Denies: Joint Pain, Joint Tenderness Skin: Denies: Rash, Wounds Neurological: Denies: Numbness, Tingling, Focal weakness Psychiatric: Denies: Anxiety, Depression, Homicidal Ideations, Suicidal Ideations Hematologic/ Lymphatic: Denies: Easy Bruising, Easy Bleeding VTE Information - Inpt Only VTE Present on Admission: Yes VTE Pharm Prophylaxis ordered?: Yes - Physical Exam General: Alert, Oriented x3 Cardiovascular: Regular rate Extremities: No Calf Tenderness Neurological: Slurred Speech, - - He has spasticity of speech as well as bilateral upper and lower extremity spasticity worse on the left side with decreased coordination on the left. Sensation appears intact. Psych/Mental Status: Normal Affect, Alert and oriented to time, place, person, mood and affect Vital Signs Temp Pulse Resp BP Pulse Ox 36.8 C 84 16 132/78 H 97 03/29/18 08:20 03/29/18 08:20 03/29/18 08:20 03/29/18 08:20 03/29/18 08:20 Oxygen Flow Rate (L/min) 2 Oxygen Delivery Method Room Air Weight: 64.8 kg Body Mass Index (BMI) 21.1 Intake and Output for Last 24 Hours Intake Total 1625 / 1625 850 / 850 Output Total 1650 / 1650 1200 / 1200 250 / 250 Balance -25 / -25 -350 / -350 -250 / -250 Microbiology Past 72 Hours 03/25/18 16:40 Respiratory Panel (PCR) - Final Mucosa - Nasopharyngeal RSV B Laboratory Tests Past 24 Hrs WBC 9.0 RBC 4.68 Hgb 13.5 Hct 41.0 Assessment/Plan All Active Problems (Last Reviewed 03/29/18 @ 12:02 by Maciel Salas MD) Acute respiratory failure (Acute) Empyema of right pleural space (Resolved) PEG (percutaneous endoscopic gastrostomy) adjustment/replacement/removal (Resolved) Debility due to RSV complicated by COPD and underlying MS. Goal of rehab is rastafari of prior level of functional independence. Plan: Physical therapy for gait and balance Occupational Therapy for ADLs PRN analgesics Continue Copaxone As needed aerosols PRN analgesics Bowel protocol 03/31/18 0955 <Electronically signed by Maciel Salas MD> Date Maciel Salas MD [facility] Signature: Date (if applicable) CC: Daquan Flores III, MD; Maciel Salas MD Signed DISCHARGE SUMMARY Observed: 03/29/2018 Status: F Source: [place] 12:59 PM [facility] REPOSITORY [facility] Medical Records Department [address] [place] [address] Discharge Summary 03/29/18 1248 MR#: [id number] Acct: [id number] Name: PETE DANG Rep #: [id number] : 1945 73 From: Abrahan Valencia MD PCP: Daquan Flores III, MD Status: ADM IN Location: [place] [address] Discharge Date and Diagnosis Date of Admission: 03/29/18 Date of Discharge: 03/29/18 - Secondary Discharge Diagnosis Chronic Problems (Last Reviewed 03/29/18 @ 12:02 by Maciel Salas MD) Depression (Chronic) Physical debility (Chronic) Hypertension (Chronic) COPD (chronic obstructive pulmonary disease) (Chronic) Multiple sclerosis (Chronic) Dysphagia (Chronic) Anemia (Chronic) BPH (benign prostatic hypertrophy) (Chronic) Vitamin D deficiency (Chronic) GERD (gastroesophageal reflux disease) (Chronic) Ulcerative esophagitis (Chronic) Gout (Chronic) Hospital Course and Treatment Imaging Results: CXR: IMPRESSION: Hyperinflation. Linear atelectasis at the left lung base. Consults: None Operations: None Procedures: None Summary of Care Provided: Per HPI: The patient is a 73 year old M who presents emergency room due to progressive generalized weakness. He has a past medical history of multiple sclerosis, COPD, BPH, GERD, gout, hypertension, depression, physical debility, dysphagia. Ex- at bedside who is POA and caregiver states that patient a respiratory infection in February which was treated by his primary care physician. She reports he has been progressively weaker since that time. Today she states she was unable to help him with activities of daily living due to patient's weakness. Patient denies fever, chills. Denies urinary symptoms. Denies cough or other URI symptoms. He denies shortness of breath. Patient reports he has been sleeping more than normal. Denies decreased appetite or poor oral intake. Patient has been in rehab unit in the past for PT and wishes to return there this admission for strengthening. Hospital Course: 1. Acute hypoxic respiratory insufficiency secondary to acute viral bronchitis/acute COPD exacerbation secondary to acute viral bronchitis with RSV B -73-year-old male who presented to the emergency room for progressive generalized weakness. He had a viral upper respiratory infection in February which left him pretty weak. He was admitted and found to have RSV B infection. He was started on aerosols as well as Solu-Medrol IV which she has tolerated very well. On the day of discharge she was completely off of oxygen was evaluated by neurology for admission to the inpatient rehab unit which she qualifies for. We will plan to discharge him on his inhalers as well as prednisone daily for 7 days. 2. His other medical diagnoses were evaluated and his home medications were continued were appropriate - Physical Exam General: Alert, Oriented x3, Cooperative, No apparent distress HEENT: Atraumatic, EOMI, Normocephalic Oral: Moist Mucosa Neck: Supple, No JVD Lungs: Clear to auscultation, Normal air movement, No rhonchi, No wheeze, No rales, Diminished Cardiovascular: Regular rate, Regular Rhythm, Normal S1, Normal S2, No murmurs Abdomen: Soft, Non Tender, Non-Distended, No Hepato-splenomegaly Extremities: No edema, Capillary Refill Less than 3 Seconds Skin: No rashes, No breakdown Neurological: Neuro grossly intact, Sensory exam intact to light touch and pain Vital Signs Temp Pulse Resp BP Pulse Ox 98.3 F 84 16 132/78 H 97 03/29/18 08:20 03/29/18 08:20 03/29/18 08:20 03/29/18 08:20 03/29/18 08:20 Oxygen Flow Rate (L/min) 2 Oxygen Delivery Method Room Air Weight: 142 lb 13.753 oz Body Mass Index (BMI) 21.1 Intake and Output for Last 24 Hours Intake Total 1625 / 1625 850 / 850 Output Total 1650 / 1650 1200 / 1200 250 / 250 Balance -25 / -25 -350 / -350 -250 / -250 Laboratory Tests Past 24 Hrs WBC 9.0 RBC 4.68 Hgb 13.5 Hct 41.0 Discharge Activity: No Restrictions Call your doctor if you observe: Coldness, Increased Pain, Shortness of breath, Dizziness, Fainting spells, Chest pain, Increased palpitations (irregular heartbeat) Home Medications: Medications to take at Discharge Cholecalciferol (VIT D3) [Vitamin D3] 5,000 unit PO DAILY 02/20/14 Calcium Carbonate 500 mg PO DAILY 04/19/16 Glatiramer Acetate [Copaxone] 40 mg SQ MOWEFR 04/19/16 Dalfampridine [Ampyra] 10 mg PO BID@0900,2100 tab.er.12h 07/14/16 coenzyme Q 10 10 mg capsule 10 mg PO ONCE 02/19/17 lansoprazole 30 mg capsule,delayed release 30 mg PO DAILY 02/19/17 ipratropium-albuterol 0.5 mg-3 mg(2.5 mg base)/3 mL nebulization soln 3 ml INHALATION TID #180 ml 03/24/17 budesonide 0.5 mg/2 mL suspension for nebulization 0.5 mg INHALATION QDAY #60 ml 03/25/17 Albuterol Sulfate [Proventil Hfa] 6.7 gm IH Q4H PRN 03/25/18 Amlodipine [Norvasc] 5 mg PO DAILY 03/25/18 Carbamazepine [Tegretol] 100 mg PO DAILY 03/25/18 Carbamazepine [Tegretol] 200 mg PO QHS 03/25/18 Duloxetine Hcl [Cymbalta] 60 mg PO DAILY 03/25/18 Ensure Enlive 237 ml GT QHS 03/25/18 Losartan Potassium [Cozaar] 100 mg PO DAILY 03/25/18 Vitamin B Comp W-C [Allbee W/C Caplet, Thera B Comp/C] 1 capsule PO DAILY MDD \ 03/25/18 Primary Care Physician: Daquan Flores III, MD [Primary Care Provider] - Please follow up with your Primary Care Physician in: 3-5 days Disposition: Inpt Rehab Unit/Facility Minutes spent on discharge:: 35 Patient Condition:: Stable Medical Necessity - Tobacco Use Smoking Status: Former smoker Tobacco Use: Cigarettes Meaningful Use Info Meaningful Use Diagnoses (Choose all that apply): None applicable Code Visit Inpatient E AND M: 16078 Disch Hosp 03/29/18 1259 <Electronically signed by Abrahan Valencia MD> Date Abrahan Valencia MD Cosigner Signature (if applicable): Date CC: Daquan Flores III, MD; Abrahan Valencia MD Signed DISCHARGE INSTRUCTION Observed: 03/29/2018 Status: F Source: [place] 12:48 PM [facility] REPOSITORY [facility] Medical Records Department [address] [place] [address] Instructions for Home/Discharge Instructions 03/29/18 1245 MR#: [id number] Acct: [id number] Name: PETE DANG Rep #: [id number] : 1945 73 From: Abrahan Valencia MD PCP: Daquan Flores III, MD Status: ADM IN You will use the following diet at home:: Regular Your food should be the consistency of: Regular Your liquids should be the consistency of: Regular/Thin Discharge Activity: No Restrictions Call your doctor if you observe: Coldness, Increased Pain, Shortness of breath, Dizziness, Fainting spells, Chest pain, Increased palpitations (irregular heartbeat) Allergies/Adverse Reactions: Allergies hydrochlorothiazide Allergy (Verified 03/25/18 11:41) Unknown Medications to take at Discharge Cholecalciferol (VIT D3) [Vitamin D3] 5,000 unit PO DAILY 02/20/14 Calcium Carbonate 500 mg PO DAILY 04/19/16 Glatiramer Acetate [Copaxone] 40 mg SQ MOWEFR 04/19/16 Dalfampridine [Ampyra] 10 mg PO BID@0900,2100 tab.er.12h 07/14/16 coenzyme Q 10 10 mg capsule 10 mg PO ONCE 02/19/17 lansoprazole 30 mg capsule,delayed release 30 mg PO DAILY 02/19/17 ipratropium-albuterol 0.5 mg-3 mg(2.5 mg base)/3 mL nebulization soln 3 ml INHALATION TID #180 ml 03/24/17 budesonide 0.5 mg/2 mL suspension for nebulization 0.5 mg INHALATION QDAY #60 ml 03/25/17 Albuterol Sulfate [Proventil Hfa] 6.7 gm IH Q4H PRN 03/25/18 Amlodipine [Norvasc] 5 mg PO DAILY 03/25/18 Carbamazepine [Tegretol] 100 mg PO DAILY 03/25/18 Carbamazepine [Tegretol] 200 mg PO QHS 03/25/18 Duloxetine Hcl [Cymbalta] 60 mg PO DAILY 03/25/18 Ensure Enlive 237 ml GT QHS 03/25/18 Losartan Potassium [Cozaar] 100 mg PO DAILY 03/25/18 Vitamin B Comp W-C [Allbee W/C Caplet, Thera B Comp/C] 1 capsule PO DAILY MDD \ 03/25/18 Primary Care Physician: Daquan Flores III, MD [Primary Care Provider] - Please follow up with your Primary Care Physician in: 3-5 days Test Results: Test results from this visit will be discussed in further detail at your follow-up appointment, if applicable. 03/29/18 1248 <Electronically signed by Abrahan Valencia MD> Date Abrahan Valencia MD CC: Dale Pereira MD; Daquan Flores III, MD Signed 12 LEAD ELECTROCARDIOGRAM Observed: 03/29/2018 Status: F Source: MICHELLE 9:21 AM [facility] REPOSITORY [facility] [address] 12 Lead EKG 03/25/18 1139 MR#: [id number] Acct: [id number] Name: PETE DANG Rep #: [id number] : 1945 73 From: Jayesh Salter MD Attending Dr: Abrahan Valencia MD Status: ADM IN Ordering Dr: James Hunt MD Date: 03/25/18 Location: MS3 Sex: M C Admitted: 03/26/18 Test Reason : SOB Blood Pressure : / mmHG Vent. Rate : 096 BPM Atrial Rate : 096 BPM P-R Int : 154 ms QRS Dur : 094 ms QT Int : 358 ms P-R-T Axes : 081 058 080 degrees QTc Int : 452 ms Normal sinus rhythm Normal ECG Confirmed by ASHELY GONSALEZ, JAYESH ([id number]), senior editor SAM CALIXTO ([id number]) on 03/29/2018 9:21:27 AM Referred By: ANGEL/JEFF Confirmed By:JAYESH SALTER MD 03/29/18920 Date Jayesh Salter MD CC: Daquan Flores III, MD; James Hunt MD; Abrahan Valencia MD Signed BASIC METABOLIC Collected: 03/29/2018 Status: F Source: MICHELLE PROFILE (BMP) 5:02 AM [facility] REPOSITORY TYPE CODE TESTS RESULT OUT OF RANGE REFERENCE UNITS LAB L501.0100 74-106 mg/dL Normal GLU 95 Result Comment: Please note revised GLUCOSE reference range effective 2017. LAB L501.1000 7-18 mg/dL High BUN 23 LAB L501.1100 0.70-1.30 mg/dL Normal CREAT,SERUM 0.76 Result Comment: The validity of the calculated GFR AND GFRAA in patients over 70 years has not been determined. Clinical correlation is essential. LAB L501.1110 >60 mL/min Normal EST GFR 107 Result Comment: Non- GFR Calc LAB L501.1115 >60 mL/min Normal EST GFR - AA 129 Result Comment: GFR Calc LAB L501.1255 ml/min Normal Estimated CRCL 61.20 LAB L501.1300 10-20 RATIO High BUN/CRE 30.2 LAB L501.2200 8.5-10 mg/dL Normal .1 CA 8.9 LAB L501.5300 136-14 mmol/L Normal 5 NA 138 LAB L501.5600 3.5-5. mmol/L Normal 1 K 4.4 LAB L501.5900 98-107 mmol/L Normal CL 100 LAB L501.6100 21.0-3 mmol/L Normal 2.0 CO2 31.0 LAB L501.6200 5-15 Normal GAP 7 Performed By: #### L500.2500 #### [facility] [address] [place], [place], [id number] CBC-COMPLETE BLOOD CNT Collected: 03/29/2018 Status: F Source: MICHELLE NO DIFF 5:02 AM [facility] REPOSITORY TYPE CODE TESTS RESULT OUT OF RANGE REFERENCE UNITS LAB L100.1000 4.4-11.0 K/mm3 Normal WBC 9.0 LAB L100.1200 4.6-6.2 M/mm3 Normal RBC 4.68 LAB L100.1300 13.0-16.5 g/dl Normal HGB 13.5 LAB L100.1400 40-54 % Normal HCT 41.0 LAB L100.1500 80-94 fL Normal MCV 87.6 LAB L100.1600 27.0-32.0 pg Normal MCH 28.8 LAB L100.1700 32-36 g/gl Normal MCHC 32.9 LAB L100.1810 11.6-14.6 % High RDW CV 19.5 LAB L100.1820 35.1-43.9 fl High RDW SD 61.8 LAB L100.1900 150-450 K/mm3 Normal PLT 243 LAB L100.2000 6.2-12.0 fl Normal MPV 10.5 Performed By: #### L100.0500 #### [facility] [place], [place], [id number] CBC-COMPLETE BLOOD CNT Collected: 03/28/2018 Status: F Source: MICHELLE NO DIFF 8:50 AM [facility] REPOSITORY TYPE CODE TESTS RESULT OUT OF RANGE REFERENCE UNITS LAB L100.1000 4.4-11.0 K/mm3 High WBC 11.6 LAB L100.1200 4.6-6.2 M/mm3 Normal RBC 4.89 LAB L100.1300 13.0-16.5 g/dl Normal HGB 14.2 LAB L100.1400 40-54 % Normal HCT 43.0 LAB L100.1500 80-94 fL Normal MCV 87.9 LAB L100.1600 27.0-32.0 pg Normal MCH 29.0 LAB L100.1700 32-36 g/gl Normal MCHC 33.0 LAB L100.1810 11.6-14.6 % High RDW CV 18.9 LAB L100.1820 35.1-43.9 fl High RDW SD 61.0 LAB L100.1900 150-450 K/mm3 Normal PLT 233 LAB L100.2000 6.2-12.0 fl Normal MPV 10.3 Performed By: #### L100.0500 #### [facility] [address] [place], [place], [id number] BASIC METABOLIC Collected: 03/28/2018 Status: F Source: MICHELLE PROFILE (BMP) 8:50 AM [facility] REPOSITORY TYPE CODE TESTS RESULT OUT OF RANGE REFERENCE UNITS LAB L501.0100 74-106 mg/dL Normal GLU 98 Result Comment: Please note revised GLUCOSE reference range effective 2017. LAB L501.1000 7-18 mg/dL Normal BUN 17 LAB L501.1100 0.70-1.30 mg/dL Normal CREAT,SERUM 0.80 Result Comment: The validity of the calculated GFR AND GFRAA in patients over 70 years has not been determined. Clinical correlation is essential. LAB L501.1110 >60 mL/min Normal EST GFR 101 Result Comment: Non- GFR Calc LAB L501.1115 >60 mL/min Normal EST GFR - AA 123 Result Comment: GFR Calc LAB L501.1255 ml/min Normal Estimated CRCL 76.50 LAB L501.1300 10-20 RATIO High BUN/CRE 21.3 LAB L501.2200 8.5-10 mg/dL Normal .1 CA 8.9 LAB L501.5300 136-14 mmol/L Low 5 NA 134 LAB L501.5600 3.5-5. mmol/L Normal 1 K 4.0 LAB L501.5900 98-107 mmol/L Low CL 97 LAB L501.6100 21.0-3 mmol/L Normal 2.0 CO2 29.0 LAB L501.6200 5-15 Normal GAP 8 Performed By: #### L500.2500, L501.5200 #### [facility] [address] [place], [address] MAGNESIUM Collected: 03/28/2018 Status: F Source: MICHELLE 8:50 AM [facility] REPOSITORY TYPE CODE TESTS RESULT OUT OF RANGE REFERENCE UNITS LAB L501.5200 1.6-2.6 mg/dL Normal MG 2.1 Performed By: #### L500.2500, L501.5200 #### [facility] [address] [place], [address] HISTORY AND PHYSICAL Observed: 03/25/2018 Status: F Source: MICHELLE EXAM 9:04 PM [facility] REPOSITORY [facility] Medical Records Department [address] [place] [address] History and Physical 03/25/18 1602 MR#: [id number] Acct: [id number] Name: PETE DANG Rep #: [id number] : 1945 73 From: Isabella BRAVOC PCP: Daquan Flores III, MD Status: ADM ЮЛИЯ Y Location: MD3 [id number] ADDENDUM by Kenyetta Sellers on 03/25/18 at 2104 Code Visit This patient was seen in conjunction with Isabella Irby NP. I have independently interviewed and examined the patient and reviewed pertinent historical, laboratory and other data. Please refer to history and physical note for details of this patient's presentation, findings and recommendations. I have reviewed Isabella's note and concur fully with documented findings. In brief, patient is a 73YO male admitted with acute exacerbation of COPD. He has a history of multiple sclerosis and his states that he has been getting progressively weaker since a upper respiratory tract infection in February. Today she was unable to adequately help him with ADL's because he has gotten so weak. He has no cough and no fever or chills. Denies N/V/D/Abd pain. No CP. CBC in the emergency room is unremarkable. Sodium is mildly decreased at 132 with chloride of 95. UA showed no evidence of urinary tract infection. The only significant finding is a pulse ox of 85% on RA in the ED....he is not on home O2. Physical examination: I agree with the PE documented below by Isabella. I independently examined the pt and the lungs are diminished with poor inspiratory effort. He has wheezing and no rales. He is very thin and cachectic in appearance, The heart has a regular rhythm with an increased resting HR. There is no edema. Assessment: 1. Acute hypoxic respiratory insufficiency which is multifactorial secondary to generalized weakness, COPD exacerbation and poor cough. I suspect that more than anything he needs good pulmonary toilet. Will try a percussion vest to help mobilize secretions. Consult Dr. Pereira for an opinion on whether the pt needs treated for an acute exacerbation of MS, although he has no focal worsening of sx......the weakness is generalized. continue the solu-medrol for now I have discussed my assessment with Isabella and orders have been written. Inpatient E AND M: 58318 Init Hosp L2 03/25/182103 <Electronically signed by Elizabeth Sellers DO> Date Elizabeth Sellers DO cc: MAURI Irby; Kenyetta Sellers; Daquan Flores III, MD * Signed Problem List (1) PEG (percutaneous endoscopic gastrostomy) adjustment/replacement/removal Status: Resolved (2) Depression Status: Chronic Qualifiers: (3) Physical debility Status: Chronic (4) Hypertension Status: Chronic Qualifiers: (5) COPD (chronic obstructive pulmonary disease) Status: Chronic (6) Multiple sclerosis Status: Chronic (7) Acute respiratory failure Status: Acute (8) Empyema of right pleural space Status: Resolved (9) Dysphagia Status: Chronic Qualifiers: (10) Anemia Status: Chronic (11) BPH (benign prostatic hypertrophy) Status: Chronic (12) Vitamin D deficiency Status: Chronic (13) GERD (gastroesophageal reflux disease) Status: Chronic Qualifiers: (14) Ulcerative esophagitis Status: Chronic (15) Gout Status: Chronic Qualifiers: History of Present Illness Date of Admission: 03/25/18 Chief Complaint: Generalized weakness. The patient is a 73 year old M who presents emergency room due to progressive generalized weakness. He has a past medical history of multiple sclerosis, COPD, BPH, GERD, gout, hypertension, depression, physical debility, dysphagia. Ex- at bedside who is POA and caregiver states that patient a respiratory infection in February which was treated by his primary care physician. She reports he has been progressively weaker since that time. Today she states she was unable to help him with activities of daily living due to patient's weakness. Patient denies fever, chills. Denies urinary symptoms. Denies cough or other URI symptoms. He denies shortness of breath. Patient reports he has been sleeping more than normal. Denies decreased appetite or poor oral intake. Patient has been in rehab unit in the past for PT and wishes to return there this admission for strengthening. Past Medical History Past Medical History (Chronic Problems): Chronic Problems (Last Reviewed 01/08/18 @ 11:53 by Cleo Wagner) Depression (Chronic) Physical debility (Chronic) Hypertension (Chronic) COPD (chronic obstructive pulmonary disease) (Chronic) Multiple sclerosis (Chronic) Dysphagia (Chronic) Anemia (Chronic) BPH (benign prostatic hypertrophy) (Chronic) Vitamin D deficiency (Chronic) GERD (gastroesophageal reflux disease) (Chronic) Ulcerative esophagitis (Chronic) Gout (Chronic) Medical History: Medical History (Last Reviewed 01/08/18 @ 11:53 by Cleo Wagner) Depression (Chronic) F32.9 Physical debility (Chronic) R53.81 Hypertension (Chronic) I10 COPD (chronic obstructive pulmonary disease) (Chronic) J44.9 Multiple sclerosis (Chronic) G35 Acute respiratory failure (Acute) J96.00 Dysphagia (Chronic) R13.10 Anemia (Chronic) D64.9 BPH (benign prostatic hypertrophy) (Chronic) N40.0 Vitamin D deficiency (Chronic) E55.9 GERD (gastroesophageal reflux disease) (Chronic) K21.9 Ulcerative esophagitis (Chronic) K22.10 Gout (Chronic) M10.9 Normal colonoscopy Open wound of buttock, complicated S31.809A Empyema of right pleural space (Resolved) J86.9 PEG (percutaneous endoscopic gastrostomy) adjustment/replacement/removal (Resolved) Z43.1 Allergies hydrochlorothiazide Allergy (Verified 03/25/18 11:41) Unknown Home Medications: Ambulatory Orders Medication Instructions Recorded Cholecalciferol (VIT D3) [Vitamin 5,000 unit PO DAILY 02/20/14 Surgical History: Surgical History (Last Reviewed 01/08/18 @ 11:53 by Cleo Wagner) History of esophagogastroduodenoscopy (EGD) Z98.890 S/P percutaneous endoscopic gastrostomy (PEG) tube placement Z93.1 Surgical History: - - Back surgery x2 (thoracic and cervical) Psychiatric History: Depression Lives: Spouse/ Significant Other Smoking Status: Former smoker Alcohol: Rare Drugs: None - *Family History Maternal Family History: Family History (Last Reviewed 03/25/18 @ 16:13 by MAURI Cho) Mother Colon cancer Breast cancer Lung cancer Father CAD (coronary artery disease) Heart disease History Items: Cancer - 70's Paternal Family History: Family History (Last Reviewed 03/25/18 @ 16:13 by MAURI Cho) Mother Colon cancer Breast cancer Lung cancer Father CAD (coronary artery disease) Heart disease History Items: Heart Disease - age 70's Review of Systems Constitutional: Reports: Weight Change - Former weight loss of about 30lbs. Now stable.. Denies: Chills, Fever HEENT: Denies: Head Aches, Sinus Congestion, Sinus Drainage Cardiovascular: Denies: Chest Pain, Edema, Light Headedness, Palpitations, Syncope Respiratory: Reports: Cough - Chronic, Sputum production - Chronic. Denies: Shortness of Breath Gastrointestinal: Reports: - - PEG tube intact. Denies: Abdominal Pain, Diarrhea, Nausea, Vomiting Genitourinary: Denies: Dysuria, Frequency, Hematuria, Incontinence, Retention Musculoskeletal: Reports: - - Generalized weakness.. Denies: Joint Pain, Joint Tenderness Skin: Denies: Rash, Wounds Neurological: Denies: Numbness, Tingling, Focal weakness Psychiatric: Reports: Depression Hematologic/ Lymphatic: Denies: Easy Bruising, Easy Bleeding VTE Information - Inpt Only VTE Present on Admission: No VTE Mechan Device Prophylaxis: None VTE Pharm Prophylaxis ordered?: Yes - Physical Exam General: Alert, Oriented x3, Cooperative, - - Cachectic HEENT: Atraumatic, PERRLA, EOMI, Normocephalic Oral: Dry Mucosa Neck: Supple, No JVD, Negative Carotid Bruits Lungs: Diminished, Wheezes Cardiovascular: Regular rate, Regular Rhythm, Normal S1, Normal S2, No murmurs Abdomen: Bowel Sounds Present, Soft, Non Tender, Non-Distended Extremities: No clubbing, No cyanosis, No edema, Capillary Refill Less than 3 Seconds Skin: No rashes, No breakdown Musculoskeletal: No Tenderness to Palpation of Joints or Extremities, Cachexia, Muscle Wasting, - - Left ankle brace Neurological: Cranial nerves II-XII grossly intact, Neuro grossly intact Psych/Mental Status: Normal Affect, Appropriate Vital Signs Temp Pulse Resp BP Pulse Ox 98.5 F 90 18 138/83 H 97 03/25/18 11:39 03/25/18 15:30 03/25/18 15:30 03/25/18 15:30 03/25/18 15:30 Oxygen Flow Rate (L/min) 2 Oxygen Delivery Method Nasal Cannula Weight: 146 lb 2.664 oz Body Mass Index (BMI) 21.6 Laboratory Tests Past 24 Hrs WBC 8.5 RBC 5.20 Assessment/Plan All Active Problems (Last Reviewed 01/08/18 @ 11:53 by Cleo Wagner) Acute respiratory failure (Acute) Empyema of right pleural space (Resolved) PEG (percutaneous endoscopic gastrostomy) adjustment/replacement/removal (Resolved) 1. Acute hypoxic respiratory insufficiency secondary to COPD exacerbation-patient's oxygen saturation 82% on admission. Chest x-ray shows hyperinflation. Afebrile. No leukocytosis. Continue supplement oxygen to maintain O2 at or above 90%. IV Solu-Medrol. Albuterol DuoNeb aerosols. Check respiratory panel. Walking pulse ox prior to discharge. 2. Physical debility, secondary to MS-associated dysphagia. S/P peg tube for supplemental feedings. PT/OT/ST. Patient requesting rehab unit. CM consult. Continue home medication regimen. 3. Hypertension-stable, continue home amlodipine, losartan regimen. 4. Iron deficiency anemia-continue iron supplementation. 5. GERD-continue PPI. 6. Depression-continue Cymbalta regimen. 7. Gout-not on preventative regimen. DVT prophylaxis-Lovenox subcu This patient was seen by MAURI Cho under the supervision of Dr. Sellers. 03/25/18 2390 <Electronically signed by Isabella DOTSON> Date Isabella Irby AIR QUALITY SPECIALIST-C 03/25/182050<Electronically signed by Elizabeth Sellers DO> Cosigner Signature: Date (if applicable) Elizabeth Sellers DO CC: AIR QUALITY SPECIALISTRamone Irby; Kenyetta Sellers; Daquan Flores III, MD Signed Observed: 03/25/2018 Status: C Source: MAHOPAC RESPIRATORY PANEL 4:40 PM [facility] MOLECULAR REPOSITORY Order Date: 03/25/18 Has pt arrived? Y CRITICAL VALUE VERIFIED. CALLED TO YASMANI SALDANA 03/26/18 0406 Paula Alonso. RESULTS READ BACK BY SAME . RP PANEL Normal Reference Range = Not Detected Copy of report sent to Infection Control Printer [id number] 03/26/18 0712 [place]. ADENOVIRUS Not Detected HUMAN METAPHNEUMO Not Detected INFLUENZA A Not Detected INFLUENZA A (SUBTYPE H1) Not Detected INFLUENZA A (SUBTYPE H3) Not Detected INFLUENZA B Not Detected PARAINFLUENZA 1 Not Detected PARAINFLUENZA 2 Not Detected PARAINFLUENZA 3 Not Detected PARAINFLUENZA 4 Not Detected RHINOVIRUS Not Detected RSV A Not Detected RSV B Positive for RSV B by NAAT technology NAAT METHOD Testing was performed using nucleic acid amplification ORGANISM 1: RSV B Performed By: #### M100.638 #### [facility] [address] [facility] [place], [address] EMERGENCY DEPARTMENT Observed: 03/25/2018 Status: F Source: MAHOPAC SUMMARY 4:04 PM [facility] REPOSITORY [facility] Medical Records Department [address] [place] [address] Emergency Department Summary 03/25/18 1205 MR#: [id number] Acct: [id number] Name: PETE DANG Rep #: [id number] : 1945 73 From: James Hunt MD PCP: Daquan Flores III, MD Status: REG ER - ER Visit Summary Date of Service: 03/25/18 Chief Complaint: Generalized weakness History of Present Illness: The patient is a 73 M history of COPD not on home O2 also MS and I retention. Patient presents saying that he is just weak. He states he would not be here for his breathing he thinks at his baseline. However is hypoxic at 82%. He states he feels generally weak all over. He denies any fever. He denies any nausea, vomiting, diarrhea or melena. No dysuria. He does have a cough of sputum which she has had for some time. That is not new. He denies any chest or abdominal pain. He denies any trouble eating. Physical Examination: Older male vital signs stable blood pressure 160/111 afebrile. On oxygen is 100% nonrebreather mask. HEENT exam unremarkable moist weeks membranes. Neck nontender no JVD no lymphadenopathy. Lungs expiratory wheezing throughout both sides. Equal symmetrical. No rales or rhonchi. Heart regular rhythm no murmur appreciated. Abdomen soft nontender. Normal bowel sounds no peritoneal signs. Patient moving all 4 extremities. Calves are nontender without edema or cords. Neurologically is awake alert with no focal motor deficits. Test Results: X-ray shows chronic changes no acute process. EKG sinus rhythm rate of 96 no acute signs of ischemia nor dysrhythmia. CBC White count 8. Hemoglobin 14. No bands. Chemistries unremarkable sodium 132. Gap is 7. Creatinine 0.7. UA normal. Emergency Department Course and Treatment: Treated with albuterol and DuoNeb aerosols. IV Solu-Medrol and oxygen. We will repeat exams patient is doing better after aerosols and IV steroids. Has some mild wheezing. Off the oxygen no he desaturates into the 80s. We attempted to walk him states he is just too weak to even stand. Even at home has difficulty walking due to his MS but he can when he is healthy with assistance. Treatment Plan: I spoke to the hospitalist about admission. Disposition: Admission Impression: Acute generalized weakness with inability to walk Acute dyspnea with hypoxia Acute exacerbation of COPD History of MS This note was generated with Prote[employer] dictation software. It may contain incorrect words, spelling, and punctuation that were not noted in review of the chart prior to signing ED Disposition - Plan for ED Patient: Chief Complaint: Shortness of Breath Referrals: Daquan Flores III, MD [Primary Care Provider] - What to do if you have Problems For any increased pain, shortness of breath, bleeding, nausea or vomiting, chest pain, or any unexpected problems, contact your Primary Care Provider. Call [facility] ([phone]) or report to the closest Emergency Room. Call 911 if necessary. 03/25/18 1604 <Electronically signed by James Hunt MD> Date James Hunt MD Cosigner Signature (If Indicated): Date CC: Daquan Flores III, MD URINALYSIS, COMPLETE Collected: 03/25/2018 Status: F Source: MICHELLE 2:20 PM [facility] REPOSITORY Order Comment: How was Urine Obtained? CLEAN CATCH TYPE CODE TESTS RESULT OUT OF RANGE REFERENCE UNITS LAB L400.3000 Yellow COLOR Normal Yellow LAB L400.3050 Clear Normal CLARITY Cloudy LAB L400.3200 Normal mg/dl Normal GLUCOSE, UR Normal LAB L400.3300 Negative mg/dL Normal BILIRUBIN URINE Negative LAB L400.3400 Negative mg/dl High 15 KETONE UR LAB L400.3465 1.002-1.030 Normal SP.GR. DIPSTX 1.015 LAB L400.3550 5.0 - 8.0 pH UR Normal 7.0 LAB L400.3600 Negative mg/dl PROT Normal DIPSTX Negative LAB L400.3700 Normal mg/dl Normal UROBILI Normal LAB L400.3750 Negative Normal NITRITE UR Negative LAB L400.3780 Negative /ul Normal OCCULT BLOOD-UR Negative LAB L400.3800 Negative /ul LEUK Normal ESTERASE Negative LAB L400.4050 0-5 /hpf WBC Normal 0-5 SEEN LAB L400.4100 0-5 /hpf 0 Normal RBC-UA SEEN LAB L400.4150 0-5 /hpf SQUAM 0 Normal EPI SEEN LAB L400.4300 None Seen /hpf 0 Normal BACTERIA SEEN LAB L400.4350 <or=2+ /hpf 0 Normal MUCUS, URINE SEEN LAB L400.4900 1+ Normal AMORPHOUS Performed By: #### L400.0001 #### [facility] [address], [address] CHEST PA AND LATERAL Observed: 03/25/2018 Status: F Source: MICHELLE 12:04 PM [facility] REPOSITORY [facility] Imaging Services [address] [place] [address] Chest PA and Lateral MR#: [id number] Acct: [id number] Name: PETE DANG Rep #: [id number] : 1945 M 73 From: Bob Jolley MD PCP: Daquan Flores III, MD Status: REG ER Study: Chest PA and Lateral Date of Exam: 03/25/18 Exam# [id number] Ordering Dr: James Hunt MD STUDY: X-RAY CHEST REASON FOR EXAM: Male, 73 years old. Wheezing. TECHNIQUE: AP and lateral views of the chest. COMPARISON: Comparison is made with prior examination dated May 27, 2016. FINDINGS: EKG electrodes are seen. There is hyperinflation of the lungs consistent with chronic obstructive lung disease (COPD). Mild increased markings at the left lung base suggestive of a linear atelectasis. There is blunting of the right costophrenic angle. Normal size heart. Normal mediastinum and rodriguez. There is prominence of the pulmonary hilar arteries without peripheral pulmonary vascular congestion, suggesting pulmonary hypertension. Normal visualized aortic arch and descending thoracic aorta. There is a dextroscoliosis of the thoracic spine. Normal visualized ribs, clavicles, and shoulders. There is no demonstrated abnormality of the visualized soft tissue structures of the upper abdomen. RAD/Chest PA and Lateral IMPRESSION: Hyperinflation. Linear atelectasis at the left lung base. Electronically Signed: Bob Jolley MD at 14:59 EST Tel [phone], Service support , CC: Daquan Flores III, MD; James Hunt MD [employer]box Repairer: Signed CBC W/DIFF, AUTOMATED Collected: 03/25/2018 Status: F Source: MICHELLE 12:00 AM [facility] REPOSITORY TYPE CODE TESTS RESULT OUT OF RANGE REFERENCE UNITS LAB L100.1000 4.4-11.0 K/mm3 Normal WBC 8.5 LAB L100.1200 4.6-6.2 M/mm3 Normal RBC 5.20 LAB L100.1300 13.0-16.5 g/dl Normal HGB 14.8 LAB L100.1400 40-54 % Normal HCT 45.1 LAB L100.1500 80-94 fL Normal MCV 86.7 LAB L100.1600 27.0-32.0 pg Normal MCH 28.5 LAB L100.1700 32-36 g/gl Normal MCHC 32.8 LAB L100.1810 11.6-14.6 % High RDW CV 18.7 LAB L100.1820 35.1-43.9 fl High RDW SD 60.1 LAB L100.1900 150-450 K/mm3 Normal PLT 274 LAB L100.2000 6.2-12.0 fl Normal MPV 10.4 LAB L100.2100 47-70 % High NEUT% 73.5 LAB L100.2200 19-41 % Low LY% 15.8 LAB L100.2300 0-10 % Normal MONO% 8.7 LAB L100.2400 0-5 % Normal EO% 1.5 LAB L100.2500 0-1 % Normal BASO% 0.4 LAB L100.2550 0.0-0.9 % Normal IM GRAN % 0.100 Result Comment: IG% - Immature Granulocytes (promyelocytes, myelocytes and metamyelocytes) > 1% indicates that a LEFT SHIFT is Present. LAB L100.2620 2.0-7.7 X10 3/uL Normal Absolute Neut 6.3 LAB L100.2720 0.83-4.51 X10 3/ul Normal Absolute Lymph 1.34 Performed By: #### L100.0100 #### Michelle [facility] [place], [address] BASIC METABOLIC Collected: 03/25/2018 Status: F Source: MICHELLE PROFILE (BMP) 12:00 AM [facility] REPOSITORY TYPE CODE TESTS RESULT OUT OF RANGE REFERENCE UNITS LAB L501.0100 74-106 mg/dL Normal GLU 96 Result Comment: Please note revised GLUCOSE reference range effective 2017. LAB L501.1000 7-18 mg/dL Normal BUN 14 LAB L501.1100 0.70-1.30 mg/dL Normal CREAT,SERUM 0.78 Result Comment: The validity of the calculated GFR AND GFRAA in patients over 70 years has not been determined. Clinical correlation is essential. LAB L501.1110 >60 mL/min Normal EST GFR 104 Result Comment: Non- GFR Calc LAB L501.1115 >60 mL/min Normal EST GFR - AA 125 Result Comment: GFR Calc LAB L501.1255 ml/min Normal Estimated CRCL 62.62 LAB L501.1300 10-20 RATIO Normal BUN/CRE 17.9 LAB L501.2200 8.5-10 mg/dL Normal .1 CA 9.2 LAB L501.5300 136-14 mmol/L Low 5 NA 132 LAB L501.5600 3.5-5. mmol/L Normal 1 K 4.7 LAB L501.5900 98-107 mmol/L Low CL 95 LAB L501.6100 21.0-3 mmol/L Normal 2.0 CO2 30.0 LAB L501.6200 5-15 Normal GAP 7 Performed By: #### L500.2500 #### [facility] [address] [place], [place], [id number] URINALYSIS WITH Collected: 03/20/2018 Status: F Source: GAYTAN MICROSCOPIC 10:25 AM [facility] REPOSITORY TYPE CODE TESTS RESULT OUT OF RANGE REFERENCE UNITS LAB UCOL Yellow Color Yellow LAB [facility] Clear Clarity Abnormal Cloudy Alert LAB UGLUC Negative mg/dL Glucose, Urine Negative LAB UBIL Negative Bilirubin, Urine Negative LAB UKET Negative Ketones, Urine Negative LAB USPG 1.005-1.030 Specific [place], Ur 1.020 LAB UHGB Negative Hemoglobin/Blood, Negative Ur LAB UPH 4.5-8.0 pH 6.0 LAB UPROT Negative mg/dL Protein, Urine Negative LAB UUROB Normal Urobilinogen Normal LAB UNITR Negative Nitrites Negative LAB ULKEST Negative Leukest Negative LAB UCOM Comments SEE COMMENT Result Comment: N/A LAB UMCOM Urine SEE Lfavio Comment COMMENT Result Comment: Rechecked by light microscopy. LAB UWBC 0-5 /HPF WBC 0-5 LAB URBC 0-3 /HPF Abnormal Alert RBC 3-5 Performed By: #### UAWMIC #### [facility] [place] [address] [place] [address] Observed: 03/20/2018 Status: F Source: [place] URINE CULTURE 10:25 AM [facility] REPOSITORY Culture Result - No growth (<1,000 CFU/ml) Performed By: #### URCUL #### [facility] [address] [place] [address] CNCO Observed: 03/18/2018 Status: COMPLETED Source: [place] 12:00 AM [facility] REPOSITORY Letter Text [facility] [address], [place] [address] Pete Dang [address] [phone] March 18, 2018 To whom it may concern: Pete Dang is a frail, elderly man who is under my care for multiple sclerosis, bilateral leg muscle weakness, COPD, and several other chronic medical issues. I have recommended regular consumption of protein shakes in order to maintain normal protein levels and healthy weight. The protein shakes are an essential part of his treatment regimen. Sincerely, Daquan Dee III, M.D PROGRESS Observed: 03/16/2018 Status: COMPLETED Source: [place] 4:07 PM [facility] REPOSITORY HNO ID: [id number] Author: Daquan Flores III Service: (none) Author Type: Physician Type: Progress Notes Filed: 03/16/2018 6:48 PM Note Text: SUBJECTIVE: This is a 73 year old male that is here today for 1. home bp has been high: 152/84, 194/106, 147/95, 170/102 2. has had some chest congestion and stridor past several days. He has been on mucinex. No fever, cough. Home spo2 95-98% 3. burnt orange color urine this AM. PAST MEDICAL HISTORY Diagnosis Date - Abnormality of gait 10/10/2008 - ANEMIA IRON DEF, CHR BLOOD LOSS 07/09/2007 last hb normal 2011 - Anemia, unspecified - Buttock wound - Cervical disc disorder with radiculopathy 03/13/2016 - COPD (chronic obstructive pulmonary disease) ([facility]) - Decubitus ulcer of coccygeal region, unstageable ([facility]) - Degeneration of cervical intervertebral disc 09/16/2007 - Depressive disorder, not elsewhere classified 09/25/2010 - Displacement of lumbar intervertebral disc without myelopathy 10/10/2008 - Duodenal ulcer, unspecified as acute or chronic, without hemorrhage, perforation, or obstruction - Dysphagia, unspecified(787.20) 09/26/2009 - GOUT NOS 09/16/2007 - HTN (hypertension) - MS (multiple sclerosis) ([facility]) Dr. 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 Ellison - REDUN PREPUCE AND PHIMOSIS 12/24/2007 - ULCER DUODENAL,ACUTE( Without obstruction) 07/15/2007 Current Outpatient Prescriptions on File Prior to Visit: budesonide (PULMICORT) 0.5 mg/2 mL nebulizer solution Use 2 mL via nebulizer once daily. ipratropium-albuterol (DUONEB) 0.5 mg-3 mg(2.5 mg base)/3 mL nebu Inhale 3 mL as instructed three times daily. Use over 5-15minutes per nebulizer. albuterol HFA (PROVENTIL HFA, VENTOLIN HFA) 90 mcg/actuation inhaler Inhale 2 Puffs as instructed every 4 hours as needed for Wheezing/Shortness of Breath. losartan (COZAAR) 100 mg tablet Take 1 tablet by mouth once daily. Food Supplement, Lactose-Free (PROTEIN NUTRITIONAL SHAKE) liqd Take 237 mL by mouth once daily. Protein shakes-take shakes 5 times a week COMPOUNDED PRESCRIPTION Take one laxative every night carBAMazepine chewable (TEGRETOL) 100 mg chewable tablet Take 1 1/2 tablet twice daily. hydrocortisone 0.5 % cream Apply 1 application to affected area once daily. 3 times a week DULoxetine (CYMBALTA) 60 mg capsule Take 1 capsule by mouth once daily. lansoprazole (PREVACID) 30 mg capsule Take 1 capsule by mouth once daily. Eat 30' after, to activate Dalfampridine (AMPYRA) 10 mg Tb12 Take 10 mg by mouth twice daily. COMPOUNDED PRESCRIPTION Nebulizer supplies Dx:J44.9 glatiramer (COPAXONE) 40 mg/mL syrg Inject 1 mL subcutaneously every Thursday,Thursday,Thursday. CALCIUM CARBONATE (CALCIUM 500 ORAL) Take 1 tablet by mouth once daily. COMPOUNDED PRESCRIPTION acapella 10 puffs three times daily dx: copd 296 Cholecalciferol, Vitamin D3, 5,000 unit cap Take 1 capsule by mouth once daily. vitamin b complex (B COMPLETE) tab Take 1 tablet by mouth once daily. Coenzyme Q10 (COQ-10) 100 mg ORAL Cap Take 100 mg by mouth once daily. ferrous sulfate 325 mg (65 mg iron) tablet Take 1 tablet by mouth daily with breakfast. No current facility-administered medications on file prior to visit. FAMILY HISTORY Problem Relation Age of Onset - Colon Cancer Mother age at dx - approx mid 60's - Breast Cancer Mother - Cancer Mother lung ( with) - Coronary Artery Disease Father sudden , age late 60's - Diabetes Other none - Prostate Cancer Other none Social History Substance Use Topics - Smoking status: Former Smoker Packs/day: 1.50 Years: 30.00 Types: Cigarettes Quit date: 12/21/1992 - Smokeless tobacco: Never Used Comment: No smoking in childhood home. - Alcohol use 31.5 oz/week 14 Glasses of Wine (5oz), 7 Cans of Beer (12oz) per week Comment: 1 glases of wine per night BP 128/86 (BP Site: Left Arm, BP Position: Sitting, BP Cuff Size: Regular Adult) Pulse 96 Temp 36.2 ?C (97.2 ?F) (Tympanic) Resp 16 . OBJECTIVE: APPEARANCE Well appearing, alert, in no acute distress, well-hydrated, well nourished. and Wheelchair NECK Supple, no adenopathy; thyroid symmetric, normal size, no bruits HEART RRR with normal S1 and S2, no murmurs, no gallops, no JVD appreciated LUNG clear to auscultation Weakness of the legs require use of wheelchair. Good arm strength bilaterally ASSESSMENT: COPD--stable MS--stable. hypertension--poor control orange urine ? etiol PLAN: healthy diet and exercise try spacer with inhalers add amlodipine 5mg daily--follow home bp same other medications urine analysis Daquan Flores III MD CNOV Observed: 03/16/2018 Status: COMPLETED Source: [place] 3:20 PM [facility] REPOSITORY Office Visit (FAMPWS) PETE DANG ([id number]) 1945 M Date Time Provider Department 03/16/18 3:20 PM DAQUAN FLORES III During your visit today, we recorded the following information about you: Temperature Pulse Respiration Blood pressure 97.2 degrees 96/minute 16/minute 128/86 Daquan Flores III MD 03/16/2018 6:48 PM Signed SUBJECTIVE: This is a 73 year old male that is here today for 1. home bp has been high: 152/84, 194/106, 147/95, 170/102 2. has had some chest congestion and stridor past several days. He has been on mucinex. No fever, cough. Home spo2 95-98% 3. burnt orange color urine this AM. PAST MEDICAL HISTORY Diagnosis Date - Abnormality of gait 10/10/2008 - ANEMIA IRON DEF, CHR BLOOD LOSS 07/09/2007 last hb normal 2011 - Anemia, unspecified - Buttock wound - Cervical disc disorder with radiculopathy 03/13/2016 - COPD (chronic obstructive pulmonary disease) ([facility]) - Decubitus ulcer of coccygeal region, unstageable ([facility]) - Degeneration of cervical intervertebral disc 09/16/2007 - Depressive disorder, not elsewhere classified 09/25/2010 - Displacement of lumbar intervertebral disc without myelopathy 10/10/2008 - Duodenal ulcer, unspecified as acute or chronic, without hemorrhage, perforation, or obstruction - Dysphagia, unspecified(787.20) 09/26/2009 - GOUT NOS 09/16/2007 - HTN (hypertension) - MS (multiple sclerosis) ([facility]) Dr. 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 Ellison - REDUN PREPUCE AND PHIMOSIS 12/24/2007 - ULCER DUODENAL,ACUTE( Without obstruction) 07/15/2007 Current Outpatient Prescriptions on File Prior to Visit: budesonide (PULMICORT) 0.5 mg/2 mL nebulizer solution Use 2 mL via nebulizer once daily. ipratropium-albuterol (DUONEB) 0.5 mg-3 mg(2.5 mg base)/3 mL nebu Inhale 3 mL as instructed three times daily. Use over 5-15minutes per nebulizer. albuterol HFA (PROVENTIL HFA, VENTOLIN HFA) 90 mcg/actuation inhaler Inhale 2 Puffs as instructed every 4 hours as needed for Wheezing/Shortness of Breath. losartan (COZAAR) 100 mg tablet Take 1 tablet by mouth once daily. Food Supplement, Lactose-Free (PROTEIN NUTRITIONAL SHAKE) liqd Take 237 mL by mouth once daily. Protein shakes-take shakes 5 times a week COMPOUNDED PRESCRIPTION Take one laxative every night carBAMazepine chewable (TEGRETOL) 100 mg chewable tablet Take 1 1/2 tablet twice daily. hydrocortisone 0.5 % cream Apply 1 application to affected area once daily. 3 times a week DULoxetine (CYMBALTA) 60 mg capsule Take 1 capsule by mouth once daily. lansoprazole (PREVACID) 30 mg capsule Take 1 capsule by mouth once daily. Eat 30' after, to activate Dalfampridine (AMPYRA) 10 mg Tb12 Take 10 mg by mouth twice daily. COMPOUNDED PRESCRIPTION Nebulizer supplies Dx:J44.9 glatiramer (COPAXONE) 40 mg/mL syrg Inject 1 mL subcutaneously every Thursday,Thursday,Thursday. CALCIUM CARBONATE (CALCIUM 500 ORAL) Take 1 tablet by mouth once daily. COMPOUNDED PRESCRIPTION acapella 10 puffs three times daily dx: copd 296 Cholecalciferol, Vitamin D3, 5,000 unit cap Take 1 capsule by mouth once daily. vitamin b complex (B COMPLETE) tab Take 1 tablet by mouth once daily. Coenzyme Q10 (COQ-10) 100 mg ORAL Cap Take 100 mg by mouth once daily. ferrous sulfate 325 mg (65 mg iron) tablet Take 1 tablet by mouth daily with breakfast. No current facility-administered medications on file prior to visit. FAMILY HISTORY Problem Relation Age of Onset - Colon Cancer Mother age at dx - approx mid 60's - Breast Cancer Mother - Cancer Mother lung ( with) - Coronary Artery Disease Father sudden , age late 60's - Diabetes Other none - Prostate Cancer Other none Social History Substance Use Topics - Smoking status: Former Smoker Packs/day: 1.50 Years: 30.00 Types: Cigarettes Quit date: 12/21/1992 - Smokeless tobacco: Never Used Comment: No smoking in childhood home. - Alcohol use 31.5 oz/week 14 Glasses of Wine (5oz), 7 Cans of Beer (12oz) per week Comment: 1 glases of wine per night BP 128/86 (BP Site: Left Arm, BP Position: Sitting, BP Cuff Size: Regular Adult) Pulse 96 Temp 36.2 ?C (97.2 ?F) (Tympanic) Resp 16 . OBJECTIVE: APPEARANCE Well appearing, alert, in no acute distress, well- hydrated, well nourished. and Wheelchair NECK Supple, no adenopathy; thyroid symmetric, normal size, no bruits HEART RRR with normal S1 and S2, no murmurs, no gallops, no JVD appreciated LUNG clear to auscultation Weakness of the legs require use of wheelchair. Good arm strength bilaterally ASSESSMENT: COPD--stable MS--stable. hypertension--poor control orange urine ? etiol PLAN: healthy diet and exercise try spacer with inhalers add amlodipine 5mg daily--follow home bp same other medications urine analysis OLGA LIDIA Alvarez MD, III MD 03/16/2018 4:29 PM Signed PLAN: healthy diet and exercise try spacer with inhalers add amlodipine 5mg daily--follow home bp same other medications urine analysis Daquan Flores III MD Referring Provider: DAQUAN FLORES III [[id number]] Allergies As of Date: 03/16/2018 Noted Allergy Reaction HCTZ (THIAZIDES) 10/24/2013 14 - Other: See Comments Comments: nocturia, frequency Date Reviewed: 03/16/2018 Reviewed by: Amanda Alvarez LPN - Fully Assessed Reason for Visit: Blood Pressure Check [195] Cmt: pt's states blood pressure has been running high Primary Visit Diagnosis:MS (multiple sclerosis) ([facility]) [G35] Other Visit Diagnoses:Mixed simple and mucopurulent chronic bronchitis (HCC) [J41.8] Hypertension, essential [I10] [place]-colored urine [R82.998] Order(s):AEROCHAMBER SPACER [[id number]] Order #: [id number] amLODIPine (NORVASC) 5 mg tabletTake 1 tablet by mouth once daily.Disp: 30 tabletRfl: 12 URINALYSIS WITH MICROSCOPIC [SQUAWMIC] Order #: [id number] Prescriptions as of 03/16/2018 Sig: BUDESONIDE 0.5 MG/2 ML SUSPEN* Use 2 mL via nebulizer once d* IPRATROPIUM-ALBUTEROL 0.5 MG-* Inhale 3 mL as instructed thr* ALBUTEROL SULFATE HFA 90 MCG/* Inhale 2 Puffs as instructed * LOSARTAN 100 MG TABLET Take 1 tablet by mouth once d* FOOD SUPPLEMENT, LACTOSE-REDU* Take 237 mL by mouth once aubree* COMPOUNDED PRESCRIPTION Take one laxative every night CARBAMAZEPINE 100 MG CHEWABLE* Take 1 1/2 tablet twice daily. HYDROCORTISONE 0.5 % TOPICAL * Apply 1 application to affect* DULOXETINE 60 MG CAPSULE,ANDRZEJ* Take 1 capsule by mouth once * LANSOPRAZOLE 30 MG CAPSULE,DE* Take 1 capsule by mouth once * DALFAMPRIDINE ER 10 MG TABLET* Take 10 mg by mouth twice aubree* COMPOUNDED PRESCRIPTION Nebulizer supplies Dx:J44.9 GLATIRAMER 40 MG/ML SUBCUTANE* Inject 1 mL subcutaneously ev* CALCIUM 500 ORAL Take 1 tablet by mouth once d* COMPOUNDED PRESCRIPTION acapella 1* CHOLECALCIFEROL (VITAMIN D3) * Take 1 capsule by mouth once * VITAMIN B COMPLEX TABLET Take 1 tablet by mouth once d* * COENZYME Q10 100 MG CAPSULE Take 100 mg by mouth once aubree* AMLODIPINE 5 MG TABLET Take 1 tablet by mouth once d* FERROUS SULFATE 325 MG (65 MG* Take 1 tablet by mouth daily * Problem List As Of Date 03/16/2018 Noted Resolved ANEMIA IRON DEF, CHR BLOOD LOSS [D50.0] INVALID FOR*04/28/2012 More... GASTRITIS ANTRAL( W/O Hemorrhage) [K29.60] INVALID FOR*10/14/2011 ULCER DUODENAL,ACUTE( Without obstruction) [K26*INVALID FOR*10/14/2011 ESOPHAGITIS REFLUX [K21.0] INVALID FOR* DIVERTICULOSIS, ARMIJO-COLONIC [K57.30] INVALID FOR* More... Degeneration of cervical intervertebral disc [M*INVALID FOR* Gout, unspecified [M10.9] INVALID FOR*04/28/2012 More... Redundant prepuce and phimosis [N47.8, N47.1] INVALID FOR*10/14/2011 More... Other psoriasis [L40.8] INVALID FOR* More... Displacement of lumbar intervertebral disc with*INVALID FOR* Abnormality of gait [R26.9] INVALID FOR* Fam hx-ischem heart disease [Z82.49] INVALID FOR* More... Dysphagia [R13.10] INVALID FOR*10/14/2011 Duodenitis [K29.80] INVALID FOR*03/13/2016 Hiatal hernia [K44.9] INVALID FOR*10/14/2011 Esophagitis [K20.9] INVALID FOR*10/14/2011 Dysphagia [R13.10] INVALID FOR* Loss of weight [R63.4] INVALID FOR*10/14/2011 Multiple sclerosis [G35] INVALID FOR*01/26/2014 More... Cervical spondylosis without myelopathy [M47.81*INVALID FOR* Examination of participant or control in clinic*INVALID FOR* More... Depressive disorder, not elsewhere classified [*INVALID FOR*11/30/2017 Osteitis deformans without mention of bone tumo*INVALID FOR* More... Family history of colon cancer [Z80.0] INVALID FOR* COPD (chronic obstructive pulmonary disease) [J*INVALID FOR*05/22/2014 MS (multiple sclerosis) (HCC) [G35] INVALID FOR* Acute exacerbation of chronic bronchitis (HCC) *INVALID FOR*03/13/2016 COPD (chronic obstructive pulmonary disease) (H*INVALID FOR* Wound, open, buttock [S31.809A] INVALID FOR*11/24/2016 Hypertension, essential [I10] INVALID FOR* Laceration of elbow, left [S51.012A] INVALID FOR*03/13/2016 Bursitis [M71.9] INVALID FOR*03/13/2016 Cervical disc disorder with radiculopathy [M50.*INVALID FOR* Iron deficiency anemia [D50.9] INVALID FOR*11/30/2017 Hypoxemia [R09.02] INVALID FOR* Frail elderly [R54] INVALID FOR* Chronic constipation [K59.09] INVALID FOR* Other instructions from your clinician: PLAN: healthy diet and exercise try spacer with inhalers add amlodipine 5mg daily--follow home bp same other medications urine analysis Daquan Flores III MD Prescriptions ordered this encounter Disp Refills Start End AMLODIPINE 5 MG TABLET 30 t* 12 03/16/2018 Route: ORAL Sig: Take 1 tablet by mouth once daily. Encounter Status:Closed by DAQUAN FLORES III, MD on 03/16/18 PROGRESS Observed: 03/05/2018 Status: COMPLETED Source: [place] 7:28 PM [facility] REPOSITORY HNO ID: [id number] Author: Daquan Flores III Service: (none) Author Type: Physician Type: Progress Notes Filed: 03/05/2018 7:28 PM Note Text: Good news?the anemia has resolved. You may stop taking the iron supplement. Daquan Flores III, MD, FAAFP PROGRESS Observed: 03/05/2018 Status: COMPLETED Source: [place] 7:27 PM [facility] REPOSITORY HNO ID: [id number] Author: Daquan Flores III Service: (none) Author Type: Physician Type: Progress Notes Filed: 03/05/2018 7:27 PM Note Text: The chest x-ray result shows chronic, stable changes but no evidence of pneumonia or significant fluid accumulation. Daquan Flores III, MD, FAAFP CNOV Observed: 03/04/2018 Status: COMPLETED Source: [place] 1:30 PM [facility] REPOSITORY Office Visit (LABMOB) PETE DANG ([id number]) 1945 M Date Time Provider Department [facility] During your visit today, we recorded the following information about you: Daquan Flores III MD 03/05/2018 7:28 PM Signed Good news?the anemia has resolved. You may stop taking the iron supplement. Daquan Flores III, MD, FAAFP Referring Provider: DAQUAN FLORES III [[id number]] Allergies As of Date: 03/04/2018 Noted Allergy Reaction HCTZ (THIAZIDES) 10/24/2013 14 - Other: See Comments Comments: nocturia, frequency Date Reviewed: 11/24/2016 Reviewed by: Sully Marcelino Ma - Fully Assessed Visit Diagnosis:Iron deficiency anemia due to chronic blood loss [D50.0] Order(s):CBC [[facility]] Order #: [id number]. #:[id number] Prescriptions as of 03/04/2018 Sig: ALBUTEROL SULFATE HFA 90 MCG/* Inhale 2 Puffs as instructed * BUDESONIDE 0.5 MG/2 ML SUSPEN* Use 2 mL via nebulizer once d* CALCIUM 500 ORAL Take 1 tablet by mouth once d* CARBAMAZEPINE 100 MG CHEWABLE* Take 1 1/2 tablet twice daily. CHOLECALCIFEROL (VITAMIN D3) * Take 1 capsule by mouth once * * COENZYME Q10 100 MG CAPSULE Take 100 mg by mouth once aubree* COMPOUNDED PRESCRIPTION acapella 1* COMPOUNDED PRESCRIPTION Nebulizer supplies Dx:J44.9 COMPOUNDED PRESCRIPTION Take one laxative every night DALFAMPRIDINE ER 10 MG TABLET* Take 10 mg by mouth twice aubree* DULOXETINE 60 MG CAPSULE,ANDRZEJ* Take 1 capsule by mouth once * FERROUS SULFATE 325 MG (65 MG* Take 1 tablet by mouth daily * FOOD SUPPLEMENT, LACTOSE-REDU* Take 237 mL by mouth once aubree* GLATIRAMER 40 MG/ML SUBCUTANE* Inject 1 mL subcutaneously ev* HYDROCORTISONE 0.5 % TOPICAL * Apply 1 application to affect* IPRATROPIUM-ALBUTEROL 0.5 MG-* Inhale 3 mL as instructed thr* LANSOPRAZOLE 30 MG CAPSULE,DE* Take 1 capsule by mouth once * LOSARTAN 100 MG TABLET Take 1 tablet by mouth once d* VITAMIN B COMPLEX TABLET Take 1 tablet by mouth once d* Problem List As Of Date 03/04/2018 Noted Resolved ANEMIA IRON DEF, CHR BLOOD LOSS [D50.0] INVALID FOR*04/28/2012 More... GASTRITIS ANTRAL( W/O Hemorrhage) [K29.60] INVALID FOR*10/14/2011 ULCER DUODENAL,ACUTE( Without obstruction) [K26*INVALID FOR*10/14/2011 ESOPHAGITIS REFLUX [K21.0] INVALID FOR* DIVERTICULOSIS, ARMIJO-COLONIC [K57.30] INVALID FOR* More... Degeneration of cervical intervertebral disc [M*INVALID FOR* Gout, unspecified [M10.9] INVALID FOR*04/28/2012 More... Redundant prepuce and phimosis [N47.8, N47.1] INVALID FOR*10/14/2011 More... Other psoriasis [L40.8] INVALID FOR* More... Displacement of lumbar intervertebral disc with*INVALID FOR* Abnormality of gait [R26.9] INVALID FOR* Fam hx-ischem heart disease [Z82.49] INVALID FOR* More... Dysphagia [R13.10] INVALID FOR*10/14/2011 Duodenitis [K29.80] INVALID FOR*03/13/2016 Hiatal hernia [K44.9] INVALID FOR*10/14/2011 Esophagitis [K20.9] INVALID FOR*10/14/2011 Dysphagia [R13.10] INVALID FOR* Loss of weight [R63.4] INVALID FOR*10/14/2011 Multiple sclerosis [G35] INVALID FOR*01/26/2014 More... Cervical spondylosis without myelopathy [M47.81*INVALID FOR* Examination of participant or control in clinic*INVALID FOR* More... Depressive disorder, not elsewhere classified [*INVALID FOR*11/30/2017 Osteitis deformans without mention of bone tumo*INVALID FOR* More... Family history of colon cancer [Z80.0] INVALID FOR* COPD (chronic obstructive pulmonary disease) [J*INVALID FOR*05/22/2014 MS (multiple sclerosis) (HCC) [G35] INVALID FOR* Acute exacerbation of chronic bronchitis (HCC) *INVALID FOR*03/13/2016 COPD (chronic obstructive pulmonary disease) (H*INVALID FOR* Wound, open, buttock [S31.809A] INVALID FOR*11/24/2016 Hypertension, essential [I10] INVALID FOR* Laceration of elbow, left [S51.012A] INVALID FOR*03/13/2016 Bursitis [M71.9] INVALID FOR*03/13/2016 Cervical disc disorder with radiculopathy [M50.*INVALID FOR* Iron deficiency anemia [D50.9] INVALID FOR*11/30/2017 Hypoxemia [R09.02] INVALID FOR* Frail elderly [R54] INVALID FOR* Chronic constipation [K59.09] INVALID FOR* Encounter Status:Closed by DAQUAN FLORES III, MD on 03/08/18 PROGRESS Observed: 03/04/2018 Status: COMPLETED Source: [place] 1:15 PM [facility] REPOSITORY HNO ID: [id number] Author: Kerry (Rt) Stacey Ya Service: (none) Author Type: Mobile Crane Operator Type: Progress Notes Filed: 03/04/2018 1:15 PM Note Text: Radiology Service Progress Note PATIENT NAME: Pete Dang DATE OF SERVICE: March 04, 2018 TIME: 1:15 PM PATIENT IDENTITY VERIFICATION COMPLETED USING TWO (2) METHODS: Patient confirmed name verbally and Date of . PATIENT GENDER DATA: Male PATIENT RELEVANT IMPLANT DATA REVIEWED: Not Applicable RADIOLOGY DEPARTMENT: General X-ray: Exam(s) Completed: Chest X-Ray PERIPHERAL IV DATA: Not applicable SIGNED BY: RT Pia March 04, 2018 1:15 PM XR CHEST 2V FRONTAL/LAT Observed: 03/04/2018 Status: F Source: [place] 1:14 PM [facility] REPOSITORY * * *Final Report* * * DATE OF EXAM: Mar 04 2018 1:14PM [id number] [id number] - XR CHEST 2V FRONTAL/LAT / PROCEDURE REASON: Cough * * * * Physician Interpretation * * * * EXAMINATION: CHEST RADIOGRAPH (2 VIEW FRONTAL and LATERAL) CLINICAL HISTORY: Cough MQ: [id number] Comparison: 10/06/2016 RESULT: Lines, tubes, and devices: None. Lungs and pleura: Blunting the right costophrenic angle is stable. Minimal atelectasis or fibrosis at both lung bases is also unchanged. Prominence of central pulmonary arteries suggests some degree of pulmonary arterial hypertension. Cardiac size is not enlarged. No developing abnormality or acute process otherwise. No pneumothorax. Partially visualized cervical orthopedic hardware. IMPRESSION: Stable blunting of the right costophrenic angle. Minimal basal atelectasis bilaterally is also stable. No developing abnormality or acute process Farebox Repairer: DINA Transcribe Date/Time: Mar 04 2018 3:01P Dictated by : MARINA TAYLOR MD This examination was interpreted and the report reviewed and electronically signed by: MARINA TAYLOR MD on Mar 04 2018 3:03PM EST [id number] CBC Collected: 03/04/2018 Status: F Source: [place] 12:49 PM [facility] REPOSITORY TYPE CODE TESTS RESULT OUT OF REFERENCE UNITS RANGE LAB WBC 3.70-11.00 k/uL WBC High 11.09 LAB RBC 4.20-6.00 m/uL RBC 5.11 LAB HGB 13.0-17.0 g/dL Hemoglobin 14.4 LAB HCT 39.0-51.0 % Hematocrit 43.5 LAB MCV 80.0-100.0 fL MCV 85.1 LAB MCH 26.0-34.0 pG MCH 28.2 LAB MCHC 30.5-36.0 g/dL MCHC 33.1 LAB RDWCV 11.5-15.0 % RDW-CV High 19.9 LAB PLTCT 150-400 k/uL Platelet Count 240 LAB MPV 9.0-12.7 fL MPV 11.2 LAB ABSNUC <0.01 k/uL Absolute nRBC <0.01 Performed By: #### CBC #### [facility] [address] [place], [place] [address] PROGRESS Observed: 03/01/2018 Status: COMPLETED Source: [place] 10:33 AM [facility] REPOSITORY HNO ID: [id number] Author: Taran Post Service: (none) Author Type: Physician Bank Secrecy Act Officer Type: Progress Notes Filed: 03/01/2018 10:33 AM Note Text: Done. Karen Post PA-C PROGRESS Observed: 03/01/2018 Status: COMPLETED Source: [place] 8:55 AM [facility] REPOSITORY HNO ID: [id number] Author: Cinthya Gould Service: (none) Author Type: Professor Of Communication Type: Progress Notes Filed: 03/01/2018 10:33 AM Note Text: Please reorder RXs Send to [facility] and link diagnosis to each prescription. Thanks, Cinthya Gould MA CNPTOUTREACH Observed: 03/01/2018 Status: COMPLETED Source: [place] 12:00 AM [facility] REPOSITORY Patient Outreach (FAMPWS) PETE DANG ([id number]) 1945 M Date Time Provider Department 03/01/18 CINTHYA GOULD) [facility]AMPWS During your visit today, we recorded the following information about you: Cinthya Gould MA 03/01/2018 10:33 AM Signed Please reorder RXs Send to [facility] and link diagnosis to each prescription. Thanks, NILDA Carvajal PA-C 03/01/2018 10:33 AM Signed Done. Karen Post PA-C Allergies As of Date: 03/01/2018 Noted Allergy Reaction HCTZ (THIAZIDES) 10/24/2013 14 - Other: See Comments Comments: nocturia, frequency Date Reviewed: 11/24/2016 Reviewed by: Sully Marcelino Ma - Fully Assessed Reason for Visit: PHMA/Care Gap Outreach [0052] Visit Diagnoses:Mixed simple and mucopurulent chronic bronchitis (HCC) [J41.8] Hypoxemia [R09.02] Order(s):ipratropium-albuterol (DUONEB) 0.5 mg-3 mg(2.5 mg base)/3 mL nebuInhale 3 mL as instructed three times daily. Use over 5-15minutes per nebulizer.Disp: 240 VialRfl: 1 albuterol HFA (PROVENTIL HFA, VENTOLIN HFA) 90 mcg/actuation inhalerInhale 2 Puffs as instructed every 4 hours as needed for Wheezing/Shortness of Breath.Disp: 1 InhalerRfl: 3 Prescriptions as of 03/01/2018 Sig: ALBUTEROL SULFATE HFA 90 MCG/* Inhale 2 Puffs as instructed * BUDESONIDE 0.5 MG/2 ML SUSPEN* Use 2 mL via nebulizer once d* CALCIUM 500 ORAL Take 1 tablet by mouth once d* CARBAMAZEPINE 100 MG CHEWABLE* Take 1 1/2 tablet twice daily. CHOLECALCIFEROL (VITAMIN D3) * Take 1 capsule by mouth once * * COENZYME Q10 100 MG CAPSULE Take 100 mg by mouth once aubree* COMPOUNDED PRESCRIPTION acapella 1* COMPOUNDED PRESCRIPTION Nebulizer supplies Dx:J44.9 COMPOUNDED PRESCRIPTION Take one laxative every night DALFAMPRIDINE ER 10 MG TABLET* Take 10 mg by mouth twice aubree* DULOXETINE 60 MG CAPSULE,ANDRZEJ* Take 1 capsule by mouth once * FERROUS SULFATE 325 MG (65 MG* Take 1 tablet by mouth daily * FOOD SUPPLEMENT, LACTOSE-REDU* Take 237 mL by mouth once aubree* GLATIRAMER 40 MG/ML SUBCUTANE* Inject 1 mL subcutaneously ev* HYDROCORTISONE 0.5 % TOPICAL * Apply 1 application to affect* IPRATROPIUM-ALBUTEROL 0.5 MG-* Inhale 3 mL as instructed thr* LANSOPRAZOLE 30 MG CAPSULE,DE* Take 1 capsule by mouth once * LOSARTAN 100 MG TABLET Take 1 tablet by mouth once d* VITAMIN B COMPLEX TABLET Take 1 tablet by mouth once d* Problem List As Of Date 03/01/2018 Noted Resolved ANEMIA IRON DEF, CHR BLOOD LOSS [D50.0] INVALID FOR*04/28/2012 More... GASTRITIS ANTRAL( W/O Hemorrhage) [K29.60] INVALID FOR*10/14/2011 ULCER DUODENAL,ACUTE( Without obstruction) [K26*INVALID FOR*10/14/2011 ESOPHAGITIS REFLUX [K21.0] INVALID FOR* DIVERTICULOSIS, ARMIJO-COLONIC [K57.30] INVALID FOR* More... Degeneration of cervical intervertebral disc [M*INVALID FOR* Gout, unspecified [M10.9] INVALID FOR*04/28/2012 More... Redundant prepuce and phimosis [N47.8, N47.1] INVALID FOR*10/14/2011 More... Other psoriasis [L40.8] INVALID FOR* More... Displacement of lumbar intervertebral disc with*INVALID FOR* Abnormality of gait [R26.9] INVALID FOR* Fam hx-ischem heart disease [Z82.49] INVALID FOR* More... Dysphagia [R13.10] INVALID FOR*10/14/2011 Duodenitis [K29.80] INVALID FOR*03/13/2016 Hiatal hernia [K44.9] INVALID FOR*10/14/2011 Esophagitis [K20.9] INVALID FOR*10/14/2011 Dysphagia [R13.10] INVALID FOR* Loss of weight [R63.4] INVALID FOR*10/14/2011 Multiple sclerosis [G35] INVALID FOR*01/26/2014 More... Cervical spondylosis without myelopathy [M47.81*INVALID FOR* Examination of participant or control in clinic*INVALID FOR* More... Depressive disorder, not elsewhere classified [*INVALID FOR*11/30/2017 Osteitis deformans without mention of bone tumo*INVALID FOR* More... Family history of colon cancer [Z80.0] INVALID FOR* COPD (chronic obstructive pulmonary disease) [J*INVALID FOR*05/22/2014 MS (multiple sclerosis) (HCC) [G35] INVALID FOR* Acute exacerbation of chronic bronchitis (HCC) *INVALID FOR*03/13/2016 COPD (chronic obstructive pulmonary disease) (H*INVALID FOR* Wound, open, buttock [S31.809A] INVALID FOR*11/24/2016 Hypertension, essential [I10] INVALID FOR* Laceration of elbow, left [S51.012A] INVALID FOR*03/13/2016 Bursitis [M71.9] INVALID FOR*03/13/2016 Cervical disc disorder with radiculopathy [M50.*INVALID FOR* Iron deficiency anemia [D50.9] INVALID FOR*11/30/2017 Hypoxemia [R09.02] INVALID FOR* Frail elderly [R54] INVALID FOR* Chronic constipation [K59.09] INVALID FOR* Prescriptions ordered this encounter Disp Refills Start End IPRATROPIUM-ALBUTEROL 0.5 MG-3 MG(2.* 240 * 1 03/01/2018 Route: INHALATION Sig: Inhale 3 mL as instructed three times daily. Use over 5-15minutes per nebulizer. ALBUTEROL SULFATE HFA 90 MCG/ACTUATI* 1 In* 3 03/01/2018 Route: INHALATION Sig: Inhale 2 Puffs as instructed every 4 hours as needed for Wheezing/Shortness of Breath. Medications Discontinued During This Encounter ipratropium-albuterol (DUONEB) 0.5 m* 240 * 3 02/24/2018 03/01/2018 Route: INHALATION Sig: Inhale 3 mL as instructed three times daily. Use over 5-15minutes per nebulizer. Disc: Reason for discontinue is not on file. albuterol HFA (PROVENTIL HFA, VENTOL* 1 In* 3 01/16/2018 03/01/2018 Route: INHALATION Sig: Inhale 2 Puffs as instructed every 4 hours as needed for Wheezing/Shortness of Breath. Disc: Reason for discontinue is not on file. Encounter Status:Closed by KAREN SHEA on 03/01/18 PROGRESS Observed: 02/24/2018 Status: COMPLETED Source: [place] 8:54 AM [facility] REPOSITORY HNO ID: [id number] Author: Cinthya Alejandro) Luis Fernando Service: (none) Author Type: Professor Of Communication Type: Progress Notes Filed: 02/24/2018 9:18 AM Note Text: Please send new RX for DUONEB .5mg-3mg to [facility] with DX. Thanks, Cinthya Gould MA CNPTOUTREACH Observed: 02/24/2018 Status: COMPLETED Source: [place] 12:00 AM [facility] REPOSITORY Patient Outreach (FPWADS) PETE DANG ([id number]) 1945 M Date Time Provider Department 02/24/18 CINTHYA GOULD) FPWADS During your visit today, we recorded the following information about you: Cinthya Gould MA 02/24/2018 9:18 AM Signed Please send new RX for DUONEB .5mg-3mg to [facility] with DX. Cinthya Murphy MA Allergies As of Date: 02/24/2018 Noted Allergy Reaction HCTZ (THIAZIDES) 10/24/2013 14 - Other: See Comments Comments: nocturia, frequency Date Reviewed: 11/24/2016 Reviewed by: Sully Marcelino Ma - Fully Assessed Reason for Visit: PHMA/Care Gap Outreach [3605] Primary Visit Diagnosis:Mixed simple and mucopurulent chronic bronchitis (HCC) [J41.8] Other Visit Diagnosis:Hypoxemia [R09.02] Order(s):ipratropium-albuterol (DUONEB) 0.5 mg-3 mg(2.5 mg base)/3 mL nebuInhale 3 mL as instructed three times daily. Use over 5-15minutes per nebulizer.Disp: 240 VialRfl: 3 Prescriptions as of 02/24/2018 Sig: ALBUTEROL SULFATE HFA 90 MCG/* Inhale 2 Puffs as instructed * BUDESONIDE 0.5 MG/2 ML SUSPEN* Use 2 mL via nebulizer once d* CALCIUM 500 ORAL Take 1 tablet by mouth once d* CARBAMAZEPINE 100 MG CHEWABLE* Take 1 1/2 tablet twice daily. CHOLECALCIFEROL (VITAMIN D3) * Take 1 capsule by mouth once * * COENZYME Q10 100 MG CAPSULE Take 100 mg by mouth once aubree* COMPOUNDED PRESCRIPTION acapella 1* COMPOUNDED PRESCRIPTION Nebulizer supplies Dx:J44.9 COMPOUNDED PRESCRIPTION Take one laxative every night DALFAMPRIDINE ER 10 MG TABLET* Take 10 mg by mouth twice aubree* DULOXETINE 60 MG CAPSULE,ANDRZEJ* Take 1 capsule by mouth once * FERROUS SULFATE 325 MG (65 MG* Take 1 tablet by mouth daily * FOOD SUPPLEMENT, LACTOSE-REDU* Take 237 mL by mouth once aubree* GLATIRAMER 40 MG/ML SUBCUTANE* Inject 1 mL subcutaneously ev* HYDROCORTISONE 0.5 % TOPICAL * Apply 1 application to affect* IPRATROPIUM-ALBUTEROL 0.5 MG-* Inhale 3 mL as instructed thr* LANSOPRAZOLE 30 MG CAPSULE,DE* Take 1 capsule by mouth once * LOSARTAN 100 MG TABLET Take 1 tablet by mouth once d* VITAMIN B COMPLEX TABLET Take 1 tablet by mouth once d* Problem List As Of Date 02/24/2018 Noted Resolved ANEMIA IRON DEF, CHR BLOOD LOSS [D50.0] INVALID FOR*04/28/2012 More... GASTRITIS ANTRAL( W/O Hemorrhage) [K29.60] INVALID FOR*10/14/2011 ULCER DUODENAL,ACUTE( Without obstruction) [K26*INVALID FOR*10/14/2011 ESOPHAGITIS REFLUX [K21.0] INVALID FOR* DIVERTICULOSIS, ARMIJO-COLONIC [K57.30] INVALID FOR* More... Degeneration of cervical intervertebral disc [M*INVALID FOR* Gout, unspecified [M10.9] INVALID FOR*04/28/2012 More... Redundant prepuce and phimosis [N47.8, N47.1] INVALID FOR*10/14/2011 More... Other psoriasis [L40.8] INVALID FOR* More... Displacement of lumbar intervertebral disc with*INVALID FOR* Abnormality of gait [R26.9] INVALID FOR* Fam hx-ischem heart disease [Z82.49] INVALID FOR* More... Dysphagia [R13.10] INVALID FOR*10/14/2011 Duodenitis [K29.80] INVALID FOR*03/13/2016 Hiatal hernia [K44.9] INVALID FOR*10/14/2011 Esophagitis [K20.9] INVALID FOR*10/14/2011 Dysphagia [R13.10] INVALID FOR* Loss of weight [R63.4] INVALID FOR*10/14/2011 Multiple sclerosis [G35] INVALID FOR*01/26/2014 More... Cervical spondylosis without myelopathy [M47.81*INVALID FOR* Examination of participant or control in clinic*INVALID FOR* More... Depressive disorder, not elsewhere classified [*INVALID FOR*11/30/2017 Osteitis deformans without mention of bone tumo*INVALID FOR* More... Family history of colon cancer [Z80.0] INVALID FOR* COPD (chronic obstructive pulmonary disease) [J*INVALID FOR*05/22/2014 MS (multiple sclerosis) (HCC) [G35] INVALID FOR* Acute exacerbation of chronic bronchitis (HCC) *INVALID FOR*03/13/2016 COPD (chronic obstructive pulmonary disease) (H*INVALID FOR* Wound, open, buttock [S31.809A] INVALID FOR*11/24/2016 Hypertension, essential [I10] INVALID FOR* Laceration of elbow, left [S51.012A] INVALID FOR*03/13/2016 Bursitis [M71.9] INVALID FOR*03/13/2016 Cervical disc disorder with radiculopathy [M50.*INVALID FOR* Iron deficiency anemia [D50.9] INVALID FOR*11/30/2017 Hypoxemia [R09.02] INVALID FOR* Frail elderly [R54] INVALID FOR* Chronic constipation [K59.09] INVALID FOR* Prescriptions ordered this encounter Disp Refills Start End IPRATROPIUM-ALBUTEROL 0.5 MG-3 MG(2.* 240 * 3 02/24/2018 Route: INHALATION Sig: Inhale 3 mL as instructed three times daily. Use over 5-15minutes per nebulizer. Medications Discontinued During This Encounter ipratropium-albuterol (DUONEB) 0.5 m* 240 * 3 02/23/2018 02/24/2018 Route: INHALATION Sig: Inhale 3 mL as instructed three times daily. Use over 5-15minutes per nebulizer. Disc: Reason for discontinue is not on file. Encounter Status:Closed by KAREN SHEA on 02/24/18 SURGERY VISIT REPORT Observed: 01/08/2018 Status: F Source: [place] 2:15 PM [facility] REPOSITORY [facility] [address] [place] [address] [address] [place] [address] OFFICE VISIT Date of Service: 01/08/18 MR#: [id number] Acct: [id number] Name: PETE DANG Rep #: [id number] : 1945 Provider: William Flores MD Age/Sex: 72/M Location: [facility] Status: Signed Intake Intake Visit Reasons: Peg tube exchange per , no ref Chief Complaint: peg exchange Dish Room Worker Required: No Is patient in pain?: No Allergies hydrochlorothiazide Allergy (Verified 01/08/18 11:54) Unknown Medications Cholecalciferol (VIT D3) [Vitamin D3] 5,000 unit PO DAILY 02/20/14 [History Confirmed 02/19/17] [place]-3 Fatty Acids/Fish Oil [Fish Oil 1,000 mg Capsule] 1 ea PO DAILY 02/20/14 [History Confirmed 02/19/17] Calcium Carbonate 500 mg PO DAILY 04/19/16 [History Confirmed 02/19/17] Glatiramer Acetate [Copaxone] 40 mg SQ MOWEFR 04/19/16 [History Confirmed 02/19/17] Acetaminophen [Tylenol] 1,000 mg PO Q8H PRN PRN #0 tab 06/18/16 [Rx Confirmed 02/19/17] Menthol/Lanolin/Calamine/Znox [Calmoseptine Ointment] 1 applic TOPICAL BID tube 06/18/16 [Rx Confirmed 02/19/17] Mineral Oil/Petrolatum,White [Eucerin] 1 applic TOPICAL BID@0600,2200 jar 06/18/16 [Rx Confirmed 02/19/17] Nystatin Powder [Mycostatin Powder] 1 applic TOPICAL TID bottle 06/18/16 [Rx Confirmed 02/19/17] Vitamin B Comp W-C [Allbee W/C Caplet, Thera B Comp/C] 1 cap PO DAILY cap 06/18/16 [Rx Confirmed 02/19/17] Carbamazepine [Tegretol] 100 mg PO BIDCM #180 tab 07/14/16 [Rx Confirmed 02/19/17] Dalfampridine [Ampyra] 10 mg PO BID@0900,2100 tab.er.12h 07/14/16 [Rx Confirmed 02/19/17] Docusate Sodium [Colace] 100 mg PO BID cap 07/14/16 [Rx Confirmed 02/19/17] Duloxetine Hcl [Cymbalta] 60 mg PO DAILY #90 cap 07/14/16 [Rx Confirmed 02/19/17] Ensure Enlive 120 ml PO 4X/DAY liquid 07/14/16 [Rx Confirmed 02/19/17] Miconazole Nitrate [Monistat-Derm] 1 applic TOPICAL BID PRN PRN #0 tube 07/14/16 [Rx Confirmed 02/19/17] Nutritional Supplement [Gee - ORANGE FLAVOR] 1 packet PO BID #180 packet 07/14/16 [Rx Confirmed 02/19/17] Nystatin Powder [Mycostatin Powder] 1 applic TOPICAL TID PRN #0 bottle 07/14/16 [Rx Confirmed 02/19/17] Nystatin/Triamcin Cream [Mycolog] 1 applic TOPICAL TID tube 07/14/16 [Rx Confirmed 02/19/17] [place]-3 Acid Ethyl Esters [Lovaza] 1 gm PO DAILY cap 07/14/16 [Rx Confirmed 02/19/17] aspirin 81 mg tablet,delayed release 81 mg PO QDAY 02/19/17 [History Confirmed 02/19/17] clindamycin 1 % topical gel 1 applic TOPICAL QHS 02/19/17 [History Confirmed 02/19/17] coenzyme Q 10 10 mg capsule 10 mg PO ONCE 02/19/17 [History Confirmed 02/19/17] ferrous sulfate 325 mg (65 mg iron) tablet PO 02/19/17 [History Confirmed 02/19/17] glatiramer 40 mg/mL subcutaneous syringe 40 mg SC ONCE 02/19/17 [History Confirmed 02/19/17] lansoprazole 30 mg capsule,delayed release 30 mg PO BID 02/19/17 [History Confirmed 02/19/17] ipratropium-albuterol 0.5 mg-3 mg(2.5 mg base)/3 mL nebulization soln 3 ml INHALATION TID #180 ml 03/24/17 [Rx] budesonide 0.5 mg/2 mL suspension for nebulization 0.5 mg INHALATION QDAY #60 ml 03/25/17 [Rx] PFSH Medical History Depression (Chronic) Physical debility (Chronic) Pain (Acute) Hypertension (Chronic) COPD (chronic obstructive pulmonary disease) (Chronic) Community acquired pneumonia (Acute) Multiple sclerosis (Chronic) Stridulous breathing (Acute) Acute respiratory failure (Acute) Empyema of right pleural space (Acute) Aspiration pneumonia (Acute) Dysphagia (Chronic) Acute kidney injury (Acute) Anemia (Chronic) Debility (Chronic) BPH (benign prostatic hypertrophy) (Chronic) Vitamin D deficiency (Chronic) GERD (gastroesophageal reflux disease) (Chronic) Ulcerative esophagitis (Chronic) Gout (Chronic) Pressure ulcer (Chronic) Normal colonoscopy (Acute) Open wound of buttock, complicated (Acute) Surgical History History of esophagogastroduodenoscopy (EGD) (Acute) S/P percutaneous endoscopic gastrostomy (PEG) tube placement (Acute) Family History Mother Colon cancer Breast cancer Lung cancer Father CAD (coronary artery disease) Heart disease Social History Smoking Status: Former smoker alcohol intake: never substance use type: does not use HPI HPI HPI: PETE DANG, is a 72 M who presents to the office today for PEG tube exchange Office Procedures Peg Tube Provider Documentation Details:: PEG tube removal and exchange I am not informed consent in. 72-year-old gentleman taken to procedure room placed on the table. The robyn-tube was prepped with Betadine 1% lidocaine mixed 50-50 with 0.5% Marcaine was used as local anesthetic. A total of 10 cc was used. The tube was removed with gentle continuous traction. There was significant amount of granulation tissue. With scissors are sharply amputated the granulation tissue and then I used a Hyfrecator to assist with hemostasis. A new Ponsky tube was reinserted with ease. The tube easily irrigated. The external bolster was gently applied as was gauze dressing. The patient tolerated the procedure well. His was in attendance throughout. No apparent complication. The old tube upon removal was inspected it was noted to be completely intact and was discarded. Successful exchange of PEG tube and treatment of granulation tissue William Flores M.D., F.A.C.S. Port/Peg Port/Pe PEG Exchange Procedure Time Out Time Out Informed consent given: Yes Consent signed: Yes Time out checklist: patient, procedure, site marked/identified, positioning of patient, supplies available, allergies confirmed, team agrees on procedure Time out staff in room: Yes Time out verified: Yes Time out date: 01/08/18 Time out time: 11:15 Assessment AND Plan Problems 1. PEG (percutaneous endoscopic gastrostomy) adjustment/replacement/removal Z43.1 Plan Successful exchange of PEG tube William Flores M.D., F.A.C.S. Orders Orders: Coding Level of Care Code Attention Insights Strategist Diagnoses PEG (percutaneous endoscopic gastrostomy) adjustment/replacement/removal Z43.1 01/08/18 1415 <Electronically signed by William Flores MD> Date William Flores MD Cosigner Signature: Date (if applicable) CC: Daquan Flores III, MD PROGRESS Observed: 11/30/2017 Status: COMPLETED Source: [place] 2:34 PM [facility] REPOSITORY O ID: [id number] Author: Ana Lopez MA Service: (none) Author Type: Professor Of Communication Type: Progress Notes Filed: 11/30/2017 6:20 PM Note Text: 72 year old male here for INACTIVATED INFLUENZA VACCINE. 6307-1275 Season Patient is identified by name and date of : Yes [] CONTRAINDICATIONS color enhanced section Age less than 6 months? No Allergy to eggs, chicken, chicken feathers, or chicken dander? No Allergy to thimerosal (a preservative) or formaldehyde, gelatin? No History of severe reaction to any vaccine component or a previous dose of influenza vaccination? No History of Guillain-Tyrone Syndrome within 6 weeks after a previous influenza vaccine? No Patient is not moderately or severely ill? No Current temperature greater or equal to 100.4F? No History of Bone Marrow Transplant prior 6 months or solid organ transplant in the past 3 months ? No History of fainting after a prior injection or medical procedure? No- ? If patient has fainted in the past, the CDC recommends sitting or lying down for 15 minutes after the vaccination. [] VERIFICATION color enhanced section Was the answer Yes for any of the above contraindications? No contraindications present. Acceptable to proceed with vaccine. Patient/guardian agrees the above answers are true to the best of their knowledge? Yes Flu vaccine information sheet given? Yes [facility] immunizations adminstered today. Patient age: [age] year old For The 9487-6455 Flu Season 6-35 months old: Fluzone 0.25 ml - IM (Preservative Free) 3 years of age: Fluzone 0.5 ml - IM (Preservative Free) 3 years and older: Fluzone 0.5 ml- IM-(with Preservatives) 65+ years old: 2-49 years old Fluzone High-Dose 0.5 ml - IM (Preservative Free) FLUMIST- intranasal REMEMBER: If patient is less than 9 years of age and this is the first vaccine of Influenza to be received in any flu season, they should receive a second dose in one months time. PROGRESS Observed: 11/30/2017 Status: COMPLETED Source: [place] 2:24 PM [facility] REPOSITORY HNO ID: [id number] Author: Daquan Flores III Service: (none) Author Type: Physician Type: Progress Notes Filed: 11/30/2017 6:20 PM Note Text: SUBJECTIVE: This is a 72 year old male that is here today for Chronic Medical Conditions. 1. wheelchair bound. Weak L ankle--using Donjoy brace with benefit. 2. 1 lb wt loss. Eats well and takes 30 min to eat 3. 2 wk hx of cough with wheezing. No uri sx. No hx of asthma. He was a long time smoker though he has now quit. He does derive benefit from DuoNeb twice per day. He is also on Pulmicort once a day. 4. hx of bleeding duodenal ulcer--on aspirin. We discussed that he does not have a history of ASHD or CVA. He does have a history of anemia though his most recent iron labs are normal and his hemoglobin is 11. No abdominal pain, change in bowel movements hematochezia or melena. He is still taking iron supplements. No chest pain. 5. History of depression?denies depression at this time. He is going to the [employer] for regular exercise. PAST MEDICAL HISTORY Diagnosis Date - Abnormality of gait 10/10/2008 - ANEMIA IRON DEF, CHR BLOOD LOSS 07/09/2007 last hb normal 2011 - Anemia, unspecified - Buttock wound - Cervical disc disorder with radiculopathy 03/13/2016 - COPD (chronic obstructive pulmonary disease) (HCC) - Decubitus ulcer of coccygeal region, unstageable (HCC) - Degeneration of cervical intervertebral disc 09/16/2007 - Depressive disorder, not elsewhere classified 09/25/2010 - Displacement of lumbar intervertebral disc without myelopathy 10/10/2008 - Duodenal ulcer, unspecified as acute or chronic, without hemorrhage, perforation, or obstruction - Dysphagia, unspecified(787.20) 09/26/2009 - GOUT NOS 09/16/2007 - HTN (hypertension) - MS (multiple sclerosis) ([facility]) Dr. 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 Ellison - REDUN PREPUCE AND PHIMOSIS 12/24/2007 - ULCER DUODENAL,ACUTE( Without obstruction) 07/15/2007 Current Outpatient Prescriptions on File Prior to Visit: DULoxetine (CYMBALTA) 60 mg capsule Take 1 capsule by mouth once daily. lansoprazole (PREVACID) 30 mg capsule Take 1 capsule by mouth once daily. Eat 30' after, to activate carBAMazepine chewable (TEGRETOL) 100 mg chewable tablet Take 1 1/2 tablet twice daily. ipratropium-albuterol (DUONEB) 0.5 mg-3 mg(2.5 mg base)/3 mL nebu Inhale 3 mL as instructed three times daily. Use over 5-15minutes per nebulizer. budesonide (PULMICORT) 0.5 mg/2 mL nebulizer solution Use 2 mL via nebulizer once daily. ferrous sulfate 325 mg (65 mg iron) tablet Take 1 tablet by mouth daily with breakfast. Dalfampridine (AMPYRA) 10 mg Tb12 Take 10 mg by mouth twice daily. COMPOUNDED PRESCRIPTION Nebulizer supplies Dx:J44.9 glatiramer (COPAXONE) 40 mg/mL syrg Inject 1 mL subcutaneously every Thursday,Thursday,Thursday. CALCIUM CARBONATE (CALCIUM 500 ORAL) Take 1 tablet by mouth once daily. COMPOUNDED PRESCRIPTION acapella 10 puffs three times daily dx: copd 296 Cholecalciferol, Vitamin D3, 5,000 unit cap Take 1 capsule by mouth once daily. vitamin b complex (B COMPLETE) tab Take 1 tablet by mouth once daily. aspirin, enteric coated 81 mg EC tablet Take 81 mg by mouth once daily. Coenzyme Q10 (COQ-10) 100 mg ORAL Cap Take 100 mg by mouth once daily. triamcinolone acetonide (KENALOG) 0.1 % cream Apply 1 application to affected area twice daily. Apply sparingly. (Patient not taking: Reported on 11/30/2017 ) clindamycin (CLEOCIN) 1 % external solution Apply 1 application to affected area twice daily. (Patient not taking: Reported on 11/30/2017 ) desonide 0.05 % cream Apply to affected area twice daily. [place]-3 Fatty Acids (FISH OIL) 500 mg ORAL Cap Take 500 mg by mouth once daily. No current facility-administered medications on file prior to visit. FAMILY HISTORY Problem Relation Age of Onset - Colon Cancer Mother age at dx - approx mid 60's - Breast Cancer Mother - Cancer Mother lung ( with) - Coronary Artery Disease Father sudden , age late 60's - Diabetes Other none - Prostate Cancer Other none Social History Substance Use Topics - Smoking status: Former Smoker Packs/day: 1.50 Years: 30.00 Types: Cigarettes Quit date: 12/21/1992 - Smokeless tobacco: Never Used Comment: No smoking in childhood home. - Alcohol use 31.5 oz/week 14 Glasses of Wine (5oz), 7 Cans of Beer (12oz) per week Comment: 1 glases of wine per night BP 154/104 Pulse 81 Resp 18 Wt 69.9 kg (154 lb) BMI 22.74 kg/m? . OBJECTIVE: APPEARANCE Well appearing, alert, in no acute distress, well-hydrated, well nourished. NECK Supple, no adenopathy; thyroid symmetric, normal size, no bruits HEART RRR with normal S1 and S2, no murmurs, no gallops, no JVD appreciated LUNG wheezing diffusely, mild ABDOMEN soft, non-tender, non-distended, without organomegaly or palpable masses, no tenderness to palpation EXTREMITIES no lower leg edema or calf tenderness bilaterally. He is using a left ankle brace Appearance: well dressed well groomed, cooperative and pleasant Behavior: good eye contact Speech: fluent and coherent Mood: euthymic Affect: appropriate Perceptions: none Thought process: goal directed Thought Content: normal Intelligence level: normal Insight: good Judgment: good Lab Results for PETE DANG ( ) as of 11/30/2017 14:41 Ref. Range 11/11/2017 12:38 Sodium Latest Ref Range: 136 - 144 mmol/L 133 (L) Potassium Latest Ref Range: 3.7 - 5.1 mmol/L 4.4 Chloride Latest Ref Range: 97 - 105 mmol/L 93 (L) CO2 Latest Ref Range: 22 - 30 mmol/L 27 BUN Latest Ref Range: 9 - 24 mg/dL 11 Creatinine Latest Ref Range: 0.73 - 1.22 mg/dL 0.81 Glucose Latest Ref Range: 74 - 99 mg/dL 66 (L) Protein, Total Latest Ref Range: 6.3 - 8.0 g/dL 6.7 Calcium Latest Ref Range: 8.5 - 10.2 mg/dL 8.9 Albumin Latest Ref Range: 3.9 - 4.9 g/dL 4.3 Bilirubin, Total Latest Ref Range: 0.2 - 1.3 mg/dL 0.3 Alkaline Phosphatase Latest Ref Range: 36 - 108 U/L 79 ALT Latest Ref Range: 10 - 54 U/L 42 AST Latest Ref Range: 14 - 40 U/L 35 Anion Gap Latest Ref Range: 9 - 18 mmol/L 13 eGFR- Unknown >60 eGFR-All Other Races Latest Units: . >60 Iron Latest Ref Range: 41 - 186 ug/dL 98 TIBC Latest Ref Range: 232 - 386 ug/dL 364 Transferrin Saturation Latest Ref Range: 15 - 57 % 27 Vitamin D 25 Hydroxy Latest Ref Range: 31.0 - 80.0 ng/mL 73.0 Hematocrit Latest Ref Range: 39.0 - 51.0 % 37.0 (L) WBC Latest Ref Range: 3.70 - 11.00 k/uL 5.38 RBC Latest Ref Range: 4.20 - 6.00 m/uL 4.57 Hemoglobin Latest Ref Range: 13.0 - 17.0 g/dL 11.0 (L) Platelet Count Latest Ref Range: 150 - 400 k/uL 331 MCV Latest Ref Range: 80.0 - 100.0 fL 81.0 MCH Latest Ref Range: 26.0 - 34.0 pG 24.1 (L) MCHC Latest Ref Range: 30.5 - 36.0 g/dL 29.7 (L) MPV Latest Ref Range: 9.0 - 12.7 fL 11.4 RDW-CV Latest Ref Range: 11.5 - 15.0 % 19.4 (H) Neut% Latest Units: % 67.6 Abs Neut (ANC) Latest Ref Range: 1.45 - 7.50 k/uL 3.62 Lymph% Latest Units: % 14.7 Abs Lymph Latest Ref Range: 1.00 - 4.00 k/uL 0.79 (L) Powell% Latest Units: % 12.3 Abs Powell Latest Ref Range: <0.87 k/uL 0.66 Eosin% Latest Units: % 3.9 Abs Eosin Latest Ref Range: <0.46 k/uL 0.21 Baso% Latest Units: % 1.5 Abs Baso Latest Ref Range: <0.11 k/uL 0.08 Nucleated Reds Latest Ref Range: 0 /100 WBC 0.0 Absolute nRBC Latest Ref Range: <0.01 k/uL <0.01 Diff Type Unknown Auto Diff ASSESSMENT: COPD--stable hx of PUD with hemorrhage mild anemia depression--resolved PLAN: increase duoneb three times/day routinely discontinue aspirin recheck CBC in 1 mo. and consider discontinuing pepcid same other medications flu shot given Daquan Flores III MD CNOV Observed: 11/30/2017 Status: COMPLETED Source: [place] 2:00 PM [facility] REPOSITORY [facility] PETE [facility]ANG ([id number]) 1945 M Date Time Provider Department 11/30/17 2:00 PM DAQUAN FLORES IIIWS During your visit today, we recorded the following information about you: Pulse Respiration Blood pressure Weight 81/minute 18/minute 156/92 69.9 kg Daquan Flores III MD 11/30/2017 6:20 PM Signed SUBJECTIVE: This is a 72 year old male that is here today for Chronic Medical Conditions. 1. wheelchair bound. Weak L ankle--using Donjoy brace with benefit. 2. 1 lb wt loss. Eats well and takes 30 min to eat 3. 2 wk hx of cough with wheezing. No uri sx. No hx of asthma. He was a long time smoker though he has now quit. He does derive benefit from DuoNeb twice per day. He is also on Pulmicort once a day. 4. hx of bleeding duodenal ulcer--on aspirin. We discussed that he does not have a history of ASHD or CVA. He does have a history of anemia though his most recent iron labs are normal and his hemoglobin is 11. No abdominal pain, change in bowel movements hematochezia or melena. He is still taking iron supplements. No chest pain. 5. History of depression?denies depression at this time. He is going to the [facility] for regular exercise. PAST MEDICAL HISTORY Diagnosis Date - Abnormality of gait 10/10/2008 - ANEMIA IRON DEF, CHR BLOOD LOSS 07/09/2007 last hb normal 2011 - Anemia, unspecified - Buttock wound - Cervical disc disorder with radiculopathy 03/13/2016 - COPD (chronic obstructive pulmonary disease) ([facility]) - Decubitus ulcer of coccygeal region, unstageable ([facility]) - Degeneration of cervical intervertebral disc 09/16/2007 - Depressive disorder, not elsewhere classified 09/25/2010 - Displacement of lumbar intervertebral disc without myelopathy 10/10/2008 - Duodenal ulcer, unspecified as acute or chronic, without hemorrhage, perforation, or obstruction - Dysphagia, unspecified(787.20) 09/26/2009 - GOUT NOS 09/16/2007 - HTN (hypertension) - MS (multiple sclerosis) ([facility]) Dr. 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 Ellison - REDUN PREPUCE AND PHIMOSIS 12/24/2007 - ULCER DUODENAL,ACUTE( Without obstruction) 07/15/2007 Current Outpatient Prescriptions on File Prior to Visit: DULoxetine (CYMBALTA) 60 mg capsule Take 1 capsule by mouth once daily. lansoprazole (PREVACID) 30 mg capsule Take 1 capsule by mouth once daily. Eat 30' after, to activate carBAMazepine chewable (TEGRETOL) 100 mg chewable tablet Take 1 1/2 tablet twice daily. ipratropium-albuterol (DUONEB) 0.5 mg-3 mg(2.5 mg base)/3 mL nebu Inhale 3 mL as instructed three times daily. Use over 5-15minutes per nebulizer. budesonide (PULMICORT) 0.5 mg/2 mL nebulizer solution Use 2 mL via nebulizer once daily. ferrous sulfate 325 mg (65 mg iron) tablet Take 1 tablet by mouth daily with breakfast. Dalfampridine (AMPYRA) 10 mg Tb12 Take 10 mg by mouth twice daily. COMPOUNDED PRESCRIPTION Nebulizer supplies Dx:J44.9 glatiramer (COPAXONE) 40 mg/mL syrg Inject 1 mL subcutaneously every Thursday,Thursday,Thursday. CALCIUM CARBONATE (CALCIUM 500 ORAL) Take 1 tablet by mouth once daily. COMPOUNDED PRESCRIPTION acapella 10 puffs three times daily dx: copd 296 Cholecalciferol, Vitamin D3, 5,000 unit cap Take 1 capsule by mouth once daily. vitamin b complex (B COMPLETE) tab Take 1 tablet by mouth once daily. aspirin, enteric coated 81 mg EC tablet Take 81 mg by mouth once daily. Coenzyme Q10 (COQ-10) 100 mg ORAL Cap Take 100 mg by mouth once daily. triamcinolone acetonide (KENALOG) 0.1 % cream Apply 1 application to affected area twice daily. Apply sparingly. (Patient not taking: Reported on 11/30/2017 ) clindamycin (CLEOCIN) 1 % external solution Apply 1 application to affected area twice daily. (Patient not taking: Reported on 11/30/2017 ) desonide 0.05 % cream Apply to affected area twice daily. [place]-3 Fatty Acids (FISH OIL) 500 mg ORAL Cap Take 500 mg by mouth once daily. No current facility-administered medications on file prior to visit. FAMILY HISTORY Problem Relation Age of Onset - Colon Cancer Mother age at dx - approx mid 60's - Breast Cancer Mother - Cancer Mother lung ( with) - Coronary Artery Disease Father sudden , age late 60's - Diabetes Other none - Prostate Cancer Other none Social History Substance Use Topics - Smoking status: Former Smoker Packs/day: 1.50 Years: 30.00 Types: Cigarettes Quit date: 12/21/1992 - Smokeless tobacco: Never Used Comment: No smoking in childhood home. - Alcohol use 31.5 oz/week 14 Glasses of Wine (5oz), 7 Cans of Beer (12oz) per week Comment: 1 glases of wine per night BP 154/104 Pulse 81 Resp 18 Wt 69.9 kg (154 lb) BMI 22.74 kg/m? . OBJECTIVE: APPEARANCE Well appearing, alert, in no acute distress, well- hydrated, well nourished. NECK Supple, no adenopathy; thyroid symmetric, normal size, no bruits HEART RRR with normal S1 and S2, no murmurs, no gallops, no JVD appreciated LUNG wheezing diffusely, mild ABDOMEN soft, non-tender, non-distended, without organomegaly or palpable masses, no tenderness to palpation EXTREMITIES no lower leg edema or calf tenderness bilaterally. He is using a left ankle brace Appearance: well dressed well groomed, cooperative and pleasant Behavior: good eye contact Speech: fluent and coherent Mood: euthymic Affect: appropriate Perceptions: none Thought process: goal directed Thought Content: normal Intelligence level: normal Insight: good Judgment: good Lab Results for PETE DANG ( ) as of 11/30/2017 14:41 Ref. Range 11/11/2017 12:38 Sodium Latest Ref Range: 136 - 144 mmol/L 133 (L) Potassium Latest Ref Range: 3.7 - 5.1 mmol/L 4.4 Chloride Latest Ref Range: 97 - 105 mmol/L 93 (L) CO2 Latest Ref Range: 22 - 30 mmol/L 27 BUN Latest Ref Range: 9 - 24 mg/dL 11 Creatinine Latest Ref Range: 0.73 - 1.22 mg/dL 0.81 Glucose Latest Ref Range: 74 - 99 mg/dL 66 (L) Protein, Total Latest Ref Range: 6.3 - 8.0 g/dL 6.7 Calcium Latest Ref Range: 8.5 - 10.2 mg/dL 8.9 Albumin Latest Ref Range: 3.9 - 4.9 g/dL 4.3 Bilirubin, Total Latest Ref Range: 0.2 - 1.3 mg/dL 0.3 Alkaline Phosphatase Latest Ref Range: 36 - 108 U/L 79 ALT Latest Ref Range: 10 - 54 U/L 42 AST Latest Ref Range: 14 - 40 U/L 35 Anion Gap Latest Ref Range: 9 - 18 mmol/L 13 eGFR- Unknown >60 eGFR-All Other Races Latest Units: . >60 Iron Latest Ref Range: 41 - 186 ug/dL 98 TIBC Latest Ref Range: 232 - 386 ug/dL 364 Transferrin Saturation Latest Ref Range: 15 - 57 % 27 Vitamin D 25 Hydroxy Latest Ref Range: 31.0 - 80.0 ng/mL 73.0 Hematocrit Latest Ref Range: 39.0 - 51.0 % 37.0 (L) WBC Latest Ref Range: 3.70 - 11.00 k/uL 5.38 RBC Latest Ref Range: 4.20 - 6.00 m/uL 4.57 Hemoglobin Latest Ref Range: 13.0 - 17.0 g/dL 11.0 (L) Platelet Count Latest Ref Range: 150 - 400 k/uL 331 MCV Latest Ref Range: 80.0 - 100.0 fL 81.0 MCH Latest Ref Range: 26.0 - 34.0 pG 24.1 (L) MCHC Latest Ref Range: 30.5 - 36.0 g/dL 29.7 (L) MPV Latest Ref Range: 9.0 - 12.7 fL 11.4 RDW-CV Latest Ref Range: 11.5 - 15.0 % 19.4 (H) Neut% Latest Units: % 67.6 Abs Neut (ANC) Latest Ref Range: 1.45 - 7.50 k/uL 3.62 Lymph% Latest Units: % 14.7 Abs Lymph Latest Ref Range: 1.00 - 4.00 k/uL 0.79 (L) Powell% Latest Units: % 12.3 Abs Powell Latest Ref Range: <0.87 k/uL 0.66 Eosin% Latest Units: % 3.9 Abs Eosin Latest Ref Range: <0.46 k/uL 0.21 Baso% Latest Units: % 1.5 Abs Baso Latest Ref Range: <0.11 k/uL 0.08 Nucleated Reds Latest Ref Range: 0 /100 WBC 0.0 Absolute nRBC Latest Ref Range: <0.01 k/uL <0.01 Diff Type Unknown Auto Diff ASSESSMENT: COPD--stable hx of PUD with hemorrhage mild anemia depression--resolved PLAN: increase duoneb three times/day routinely discontinue aspirin recheck CBC in 1 mo. and consider discontinuing pepcid same other medications flu shot given OLGA LIDIA Alvarez MD,[employer], [place] 11/30/2017 6:20 PM Signed 72 year old male here for INACTIVATED INFLUENZA VACCINE. [id number] Season Patient is identified by name and date of : Yes [] CONTRAINDICATIONS color enhanced section Age less than 6 months? No Allergy to eggs, chicken, chicken feathers, or chicken dander? No Allergy to thimerosal (a preservative) or formaldehyde, gelatin? No History of severe reaction to any vaccine component or a previous dose of influenza vaccination? No History of Guillain-Tyrone Syndrome within 6 weeks after a previous influenza vaccine? No Patient is not moderately or severely ill? No Current temperature greater or equal to 100.4F? No History of Bone Marrow Transplant prior 6 months or solid organ transplant in the past 3 months ? No History of fainting after a prior injection or medical procedure? No- ? If patient has fainted in the past, the CDC recommends sitting or lying down for 15 minutes after the vaccination. [] VERIFICATION color enhanced section Was the answer Yes for any of the above contraindications? No contraindications present. Acceptable to proceed with vaccine. Patient/guardian agrees the above answers are true to the best of their knowledge? Yes Flu vaccine information sheet given? Yes See immunization activity in [facility] for details of immunizations adminstered today. Patient age: [age] year old For The 5140-9646 Flu Season 6-35 months old: Fluzone 0.25 ml - IM (Preservative Free) 3 years of age: Fluzone 0.5 ml - IM (Preservative Free) 3 years and older: Fluzone 0.5 ml- IM-(with Preservatives) 65+ years old: 2-49 years old Fluzone High-Dose 0.5 ml - IM (Preservative Free) FLUMIST- intranasal REMEMBER: If patient is less than 9 years of age and this is the first vaccine of Influenza to be received in any flu season, they should receive a second dose in one months time. Daquan Flores III MD 11/30/2017 2:45 PM Signed PLAN: increase duoneb three times/day routinely discontinue aspirin recheck CBC in 1 mo. and consider discontinuing pepcid same other medications Daquan Flores III MD Referring Provider: DAQUAN FLORES III [[id number]] Allergies As of Date: 11/30/2017 Noted Allergy Reaction HCTZ (THIAZIDES) 10/24/2013 14 - Other: See Comments Comments: nocturia, frequency Date Reviewed: 11/24/2016 Reviewed by: Sully Marcelino Ma - Fully Assessed Reason for Visit: 6 month check up [Other] Imm/Inj [58] Cmt: Flu Vaccine Reason For Visit History Recorded Primary Visit Diagnosis:Mixed simple and mucopurulent chronic bronchitis (HCC) [J41.8] Other Visit Diagnoses:Cervical disc disorder with radiculopathy [M50.10] Need for vaccination [Z23] MS (multiple sclerosis) (HCC) [G35] Iron deficiency anemia due to chronic blood loss [D50.0] Order(s):carBAMazepine chewable (TEGRETOL) 100 mg chewable tabletTake 1 1/2 tablet twice daily.Disp: 270 tabletRfl: 4 INFLUENZA SEASONAL HIGH DOSE AGE 65+ [[id number]] Order #: [id number] CBC [[facility]] Order #: [id number] FUTURE Prescriptions as of 11/30/2017 Sig: HYDROCORTISONE 0.5 % TOPICAL * Apply 1 application to affect* CARBAMAZEPINE 100 MG CHEWABLE* Take 1 1/2 tablet twice daily. DULOXETINE 60 MG CAPSULE,ANDRZEJ* Take 1 capsule by mouth once * LANSOPRAZOLE 30 MG CAPSULE,DE* Take 1 capsule by mouth once * IPRATROPIUM-ALBUTEROL 0.5 MG-* Inhale 3 mL as instructed thr* BUDESONIDE 0.5 MG/2 ML SUSPEN* Use 2 mL via nebulizer once d* FERROUS SULFATE 325 MG (65 MG* Take 1 tablet by mouth daily * DALFAMPRIDINE ER 10 MG TABLET* Take 10 mg by mouth twice aubree* COMPOUNDED PRESCRIPTION Nebulizer supplies Dx:J44.9 GLATIRAMER 40 MG/ML SUBCUTANE* Inject 1 mL subcutaneously ev* CALCIUM 500 ORAL Take 1 tablet by mouth once d* COMPOUNDED PRESCRIPTION acapella 1* CHOLECALCIFEROL (VITAMIN D3) * Take 1 capsule by mouth once * VITAMIN B COMPLEX TABLET Take 1 tablet by mouth once d* * COENZYME Q10 100 MG CAPSULE Take 100 mg by mouth once aubree* Problem List As Of Date 11/30/2017 Noted Resolved ANEMIA IRON DEF, CHR BLOOD LOSS [D50.0] INVALID FOR*04/28/2012 Priority: Moderate More... GASTRITIS ANTRAL( W/O Hemorrhage) [K29.60] INVALID FOR*10/14/2011 ULCER DUODENAL,ACUTE( Without obstruction) [K26*INVALID FOR*10/14/2011 ESOPHAGITIS REFLUX [K21.0] INVALID FOR* DIVERTICULOSIS, ARMIJO-COLONIC [K57.30] INVALID FOR* More... Degeneration of cervical intervertebral disc [M*INVALID FOR* Gout, unspecified [M10.9] INVALID FOR*04/28/2012 More... Redundant prepuce and phimosis [N47.8, N47.1] INVALID FOR*10/14/2011 More... Other psoriasis [L40.8] INVALID FOR* More... Displacement of lumbar intervertebral disc with*INVALID FOR* Abnormality of gait [R26.9] INVALID FOR* Fam hx-ischem heart disease [Z82.49] INVALID FOR* More... Dysphagia [R13.10] INVALID FOR*10/14/2011 Duodenitis [K29.80] INVALID FOR*03/13/2016 Hiatal hernia [K44.9] INVALID FOR*10/14/2011 Esophagitis [K20.9] INVALID FOR*10/14/2011 Dysphagia [R13.10] INVALID FOR* Loss of weight [R63.4] INVALID FOR*10/14/2011 Multiple sclerosis [G35] INVALID FOR*01/26/2014 Priority: Very Severe More... Cervical spondylosis without myelopathy [M47.81*INVALID FOR* Examination of participant or control in clinic*INVALID FOR* More... Depressive disorder, not elsewhere classified [*INVALID FOR*11/30/2017 Priority: A Osteitis deformans without mention of bone tumo*INVALID FOR* More... Family history of colon cancer [Z80.0] INVALID FOR* COPD (chronic obstructive pulmonary disease) [J*INVALID FOR*05/22/2014 MS (multiple sclerosis) (HCC) [G35] INVALID FOR* Acute exacerbation of chronic bronchitis (HCC) *INVALID FOR*03/13/2016 COPD (chronic obstructive pulmonary disease) (H*INVALID FOR* Wound, open, buttock [S31.809A] INVALID FOR*11/24/2016 Essential hypertension [I10] INVALID FOR*08/18/2016 Laceration of elbow, left [S51.012A] INVALID FOR*03/13/2016 Bursitis [M71.9] INVALID FOR*03/13/2016 Cervical disc disorder with radiculopathy [M50.*INVALID FOR* Iron deficiency anemia [D50.9] INVALID FOR*11/30/2017 Other instructions from your clinician: PLAN: increase duoneb three times/day routinely discontinue aspirin recheck CBC in 1 mo. and consider discontinuing pepcid same other medications Daquan Flores III MD Prescriptions ordered this encounter Disp Refills Start End CARBAMAZEPINE 100 MG CHEWABLE TABLET 270 * 4 11/30/2017 Class: Med Update Sig: Take 1 1/2 tablet twice daily. Medications Discontinued During This Encounter aspirin, enteric coated 81 mg EC tab* 11/30/2017 Class: Historical Med Route: ORAL Sig: Take 81 mg by mouth once daily. Disc: Clinical Decision carBAMazepine chewable (TEGRETOL) 10* 90 t* 11 01/19/2017 11/30/2017 Sig: Take 1 1/2 tablet twice daily. Disc: Reason for discontinue is not on file. desonide 0.05 % cream 11/30/2017 Class: Historical Med Route: TOPICAL Sig: Apply to affected area twice daily. Disc: Course of therapy completed triamcinolone acetonide (KENALOG) 0.* 80 g 2 07/25/2015 11/30/2017 Route: TOPICAL Sig: Apply 1 application to affected area twice daily. Apply sparingly. Patient not taking: Reported on 11/30/2017 Disc: Course of therapy completed clindamycin (CLEOCIN) 1 % external s* 60 mL 2 01/26/2014 11/30/2017 Route: TOPICAL Sig: Apply 1 application to affected area twice daily. Patient not taking: Reported on 11/30/2017 Disc: Course of therapy completed [place]-3 Fatty Acids (FISH OIL) 500 m* 11/30/2017 Class: Med Update Route: ORAL Sig: Take 500 mg by mouth once daily. Disc: Discontinued by Patient Encounter Status:Closed by DAQUAN FLORES III, MD on 11/30/17 PROGRESS Observed: 11/19/2017 Status: COMPLETED Source: [place] 6:57 PM [facility] REPOSITORY HNO ID: [id number] Author: Daquan Flores III Service: (none) Author Type: Physician Type: Progress Notes Filed: 11/19/2017 6:57 PM Note Text: Good news?the lab results look pretty good. He shows stable renal function, liver function tests, and hemoglobin. May discuss in more detail at the upcoming appointment. Daquan Flores III, MD, FAAFP CNOV Observed: 11/11/2017 Status: COMPLETED Source: [place] 1:30 PM [facility] REPOSITORY Office Visit ([facility]) PETE DANG ([id number]) 1945 M Date Time Provider Department 11/11/17 1:30 PM LAB REPLACED BY [facility] During your visit today, we recorded the following information about you: Daquan Flores III MD 11/19/2017 6:57 PM Signed Good news?the lab results look pretty good. He shows stable renal function, liver function tests, and hemoglobin. May discuss in more detail at the upcoming appointment. Daquan Flores III, MD, FAAFP Referring Provider: DAQUAN FLORES III [[id number]] Allergies As of Date: 11/11/2017 Noted Allergy Reaction HCTZ (THIAZIDES) 10/24/2013 14 - Other: See Comments Comments: nocturia, frequency Date Reviewed: 11/24/2016 Reviewed by: Sully Marcelino Ma - Fully Assessed Visit Diagnoses:Vitamin D deficiency [E55.9] Iron deficiency anemia, unspecified iron deficiency anemia type [D50.9] MS (multiple sclerosis) (HCC) [G35] Order(s):VITAMIN D 25 HYDROXY [SQVITD] Order #: [id number]. #:[id number] IRON + TIBC [SQIRON] Order #: [id number]. #:[id number] CBC + DIFF [SQCBCDIF] Order #: [id number]. #:[id number] COMP METABOLIC PANEL [SQCMP] Order #: [id number]. #:[id number] Prescriptions as of 11/11/2017 Sig: DULOXETINE 60 MG CAPSULE,ANDRZEJ* Take 1 capsule by mouth once * LANSOPRAZOLE 30 MG CAPSULE,DE* Take 1 capsule by mouth once * CARBAMAZEPINE 100 MG CHEWABLE* Take 1 1/2 tablet twice daily. IPRATROPIUM-ALBUTEROL 0.5 MG-* Inhale 3 mL as instructed thr* BUDESONIDE 0.5 MG/2 ML SUSPEN* Use 2 mL via nebulizer once d* FERROUS SULFATE 325 MG (65 MG* Take 1 tablet by mouth daily * DALFAMPRIDINE ER 10 MG TABLET* Take 10 mg by mouth twice aubree* COMPOUNDED PRESCRIPTION Nebulizer supplies Dx:J44.9 GLATIRAMER 40 MG/ML SUBCUTANE* Inject 1 mL subcutaneously ev* TRIAMCINOLONE ACETONIDE 0.1 %* Apply 1 application to affect* CALCIUM 500 ORAL Take 1 tablet by mouth once d* CLINDAMYCIN PHOSPHATE 1 % TOP* Apply 1 application to affect* COMPOUNDED PRESCRIPTION acapella 1* CHOLECALCIFEROL (VITAMIN D3) * Take 1 capsule by mouth once * VITAMIN B COMPLEX TABLET Take 1 tablet by mouth once d* ASPIRIN 81 MG TABLET,DELAYED * Take 81 mg by mouth once doretha* DESONIDE 0.05 % TOPICAL CREAM Apply to affected area twice* * OME[place]-3 FATTY ACIDS 500 MG CA* Take 500 mg by mouth once aubree* * COENZYME Q10 100 MG CAPSULE Take 100 mg by mouth once aubree* Problem List As Of Date 11/11/2017 Noted Resolved ANEMIA IRON DEF, CHR BLOOD LOSS [D50.0] INVALID FOR*04/28/2012 Priority: Moderate More... GASTRITIS ANTRAL( W/O Hemorrhage) [K29.60] INVALID FOR*10/14/2011 ULCER DUODENAL,ACUTE( Without obstruction) [K26*INVALID FOR*10/14/2011 ESOPHAGITIS REFLUX [K21.0] INVALID FOR* DIVERTICULOSIS, ARMIJO-COLONIC [K57.30] INVALID FOR* More... Degeneration of cervical intervertebral disc [M*INVALID FOR* Gout, unspecified [M10.9] INVALID FOR*04/28/2012 More... Redundant prepuce and phimosis [N47.8, N47.1] INVALID FOR*10/14/2011 More... Other psoriasis [L40.8] INVALID FOR* More... Displacement of lumbar intervertebral disc with*INVALID FOR* Abnormality of gait [R26.9] INVALID FOR* Fam hx-ischem heart disease [Z82.49] INVALID FOR* More... Dysphagia [R13.10] INVALID FOR*10/14/2011 Duodenitis [K29.80] INVALID FOR*03/13/2016 Hiatal hernia [K44.9] INVALID FOR*10/14/2011 Esophagitis [K20.9] INVALID FOR*10/14/2011 Dysphagia [R13.10] INVALID FOR* Loss of weight [R63.4] INVALID FOR*10/14/2011 Multiple sclerosis [G35] INVALID FOR*01/26/2014 Priority: Very Severe More... Cervical spondylosis without myelopathy [M47.81*INVALID FOR* Examination of participant or control in clinic*INVALID FOR* More... 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 Family history of colon cancer [Z80.0] INVALID FOR* COPD (chronic obstructive pulmonary disease) [J*INVALID FOR*05/22/2014 MS (multiple sclerosis) (HCC) [G35] INVALID FOR* Acute exacerbation of chronic bronchitis (HCC) *INVALID FOR*03/13/2016 COPD (chronic obstructive pulmonary disease) (H*INVALID FOR* Wound, open, buttock [S31.809A] INVALID FOR*11/24/2016 Essential hypertension [I10] INVALID FOR*08/18/2016 Laceration of elbow, left [S51.012A] INVALID FOR*03/13/2016 Bursitis [M71.9] INVALID FOR*03/13/2016 Cervical disc disorder with radiculopathy [M50.*INVALID FOR* Iron deficiency anemia [D50.9] INVALID FOR* Encounter Status:Closed by DAQUAN FLORES III, MD on 11/21/17 CBC AND DIFFERENTIAL Collected: 11/11/2017 Status: F Source: [place] 12:38 PM [facility] REPOSITORY TYPE CODE TESTS RESULT OUT OF REFERENCE UNITS RANGE LAB WBC 3.70-11.00 k/uL WBC 5.38 LAB RBC 4.20-6.00 m/uL RBC 4.57 LAB HGB 13.0-17.0 g/dL Low Hemoglobin 11.0 LAB HCT 39.0-51.0 % Low Hematocrit 37.0 LAB MCV 80.0-100.0 fL MCV 81.0 LAB MCH 26.0-34.0 pG Low MCH 24.1 LAB MCHC 30.5-36.0 g/dL Low MCHC 29.7 LAB RDWCV 11.5-15.0 % RDW-CV High 19.4 LAB PLTCT 150-400 k/uL Platelet Count 331 LAB MPV 9.0-12.7 fL MPV 11.4 LAB ANEUT % Neut% 67.6 LAB AANEUT 1.45-7.50 k/uL Abs Neut 3.62 LAB ALYMP % Lymph% 14.7 LAB AALYMP 1.00-4.00 k/uL Low Abs Lymph 0.79 LAB AMONO % Powell% 12.3 LAB AAMONO <0.87 k/uL Abs Powell 0.66 LAB AEOS % Eosin% 3.9 LAB AAEOS <0.46 k/uL Abs Eosin 0.21 LAB ABASO % Baso% 1.5 LAB AABASO <0.11 k/uL Abs Baso 0.08 LAB AUNRBC 0 /100 WBC NRBCs 0.0 LAB ABNRBC <0.01 k/uL Absolute nRBC <0.01 LAB DTYP DTYPE Auto Diff Performed By: #### CBCDIF, VITD, CMP, IRON #### [facility] [place], [place] [address] VITAMIN D 25 HYDROXY Collected: 11/11/2017 Status: F Source: [place] 12:38 PM [facility] REPOSITORY TYPE CODE TESTS RESULT OUT OF REFERENCE UNITS RANGE LAB VITD 31.0-80.0 ng/mL Vitamin D 25 73.0 Hydroxy Result Comment: Classification of 25 [place] Vitamin D status: Insufficiency/Moderate Deficiency: < or = 30 ng/mL Sufficiency/Optimal Levels: 31 to 80 ng/mL Toxicity: > 100 ng/mL Test performed by chemiluminescent immunoassay. Performed By: #### CBCDIF, VITD, CMP, IRON #### [facility] [employer] [place], [place] [address] COMP METABOLIC PANEL Collected: 11/11/2017 Status: F Source: [place] 12:38 PM [facility] REPOSITORY TYPE CODE TESTS RESULT OUT OF REFERENCE UNITS RANGE LAB TP 6.3-8.0 g/dL Protein, Total 6.7 LAB ALB 3.9-4.9 g/dL Albumin 4.3 LAB CA 8.5-10.2 mg/dL Calcium, Total 8.9 LAB TBIL 0.2-1.3 mg/dL Bilirubin, Total 0.3 LAB ALKP 36-108 U/L Alkaline Phosphatase 79 LAB AST 14-40 U/L AST 35 LAB GLU 74-99 mg/dL Low Glucose 66 Result Comment: The [place] Diabetes [employer] (ADA) provides guidance for cutoff values for fasting glucose and random glucose. The ADA defines fasting as no caloric intake for at least 8 hours. Fas ting plasma glucose results between 100 to 125 mg/dL indicate increased risk for diabetes (prediabetes). Fasting plasma glucose results greater than or equal to 126 mg/dL meet the criteria for diagnosis of diabetes. In the absence of unequivocal hyperglycemia, results should be confirmed by repeat testing. In a patient with classic symptoms of hyperglycemia or hyperglycemic crisis, random plasma glucose results greater than or equal to 200 mg/dL meet the criteria for diagnosis of diabetes. Reference: Standards of Medical Care in Diabetes 2016, [place] [employer]. Diabetes Care. 2016.39(Suppl 1). LAB BUN 9-24 mg/dL BUN 11 LAB CRET 0.73-1.22 mg/dL Creatinine 0.81 LAB NA 136-144 mmol/L Sodium Low 133 LAB K 3.7-5.1 mmol/L Potassium 4.4 LAB CL 97-105 mmol/L Chloride Low 93 LAB CO2 22-30 mmol/L CO2 27 LAB AGAP 9-18 mmol/L Anion Gap 13 LAB ALT 10-54 U/L ALT 42 LAB GFRAA eGFR- Amer. >60 LAB GFRNAA . eGFR-All Other Races >60 Result Comment: eGFR (Estimated GFR) Units of measure: mL/min/1.73 meters squared eGFR is derived from the reexpressed MDRD Study equation using the following parameters: serum creatinine, age, gender and race. The creatinine assay has been calibrated to be traceable to IDMS. An eGFR <60 mL/min/1.73m2 for >3 months is consistent with chronic kidney disease. Refer to KDOQI guidelines for clinical interpretation. In patients with unstable renal function, e.g. those with acute kidney injury, the eGFR may not accurately reflect actual GFR. Performed By: #### CBCDIF, VITD, CMP, IRON #### [facility] [address] [place], [place] [address] IRON AND TIBC Collected: 11/11/2017 Status: F Source: [place] 12:38 PM [facility] REPOSITORY TYPE CODE TESTS RESULT OUT OF REFERENCE UNITS RANGE LAB IRN 41-186 ug/dL Iron 98 LAB TIBC 232-386 ug/dL TIBC 364 LAB SAT 15-57 % Transferrin Saturatn 27 Performed By: #### CBCDIF, VITD, CMP, IRON #### [facility] [address] [place], [place] [address] SURGERY VISIT REPORT Observed: 06/24/2017 Status: F Source: [place] 2:10 PM [facility] REPOSITORY [facility] [address] [place] [address]. [address] [place] [address] OFFICE VISIT Date of Service: 06/24/17 MR#: [id number] Acct: [id number] Name: PETE DANG Rep #: [id number] : 1945 Provider: William Flores MD Age/Sex: 72/M Location: [facility] Status: Signed Intake Intake Visit Reasons: open wound coccyx Chief Complaint: buttock wound Dish Room Worker Required: No Is patient in pain?: No Allergies hydrochlorothiazide Allergy (Verified 06/24/17 12:57) Unknown Medications Cholecalciferol (VIT D3) [Vitamin D3] 5,000 unit PO DAILY 02/20/14 [History Confirmed 02/19/17] [place]-3 Fatty Acids/Fish Oil [Fish Oil 1,000 mg Capsule] 1 ea PO DAILY 02/20/14 [History Confirmed 02/19/17] Calcium Carbonate 500 mg PO DAILY 04/19/16 [History Confirmed 02/19/17] Glatiramer Acetate [Copaxone] 40 mg SQ MOWEFR 04/19/16 [History Confirmed 02/19/17] Acetaminophen [Tylenol] 1,000 mg PO Q8H PRN PRN #0 tab 06/18/16 [Rx Confirmed 02/19/17] Menthol/Lanolin/Calamine/Znox [Calmoseptine Ointment] 1 applic TOPICAL BID tube 06/18/16 [Rx Confirmed 02/19/17] Mineral Oil/Petrolatum,White [Eucerin] 1 applic TOPICAL BID@0600,2200 jar 06/18/16 [Rx Confirmed 02/19/17] Nystatin Powder [Mycostatin Powder] 1 applic TOPICAL TID bottle 06/18/16 [Rx Confirmed 02/19/17] Vitamin B Comp W-C [Allbee W/C Caplet, Thera B Comp/C] 1 cap PO DAILY cap 06/18/16 [Rx Confirmed 02/19/17] Carbamazepine [Tegretol] 100 mg PO BIDCM #180 tab 07/14/16 [Rx Confirmed 02/19/17] Dalfampridine [Ampyra] 10 mg PO BID@0900,2100 tab.er.12h 07/14/16 [Rx Confirmed 02/19/17] Docusate Sodium [Colace] 100 mg PO BID cap 07/14/16 [Rx Confirmed 02/19/17] Duloxetine Hcl [Cymbalta] 60 mg PO DAILY #90 cap 07/14/16 [Rx Confirmed 02/19/17] Ensure Enlive 120 ml PO 4X/DAY liquid 07/14/16 [Rx Confirmed 02/19/17] Miconazole Nitrate [Monistat-Derm] 1 applic TOPICAL BID PRN PRN #0 tube 07/14/16 [Rx Confirmed 02/19/17] Nutritional Supplement [Gee - ORANGE FLAVOR] 1 packet PO BID #180 packet 07/14/16 [Rx Confirmed 02/19/17] Nystatin Powder [Mycostatin Powder] 1 applic TOPICAL TID PRN #0 bottle 07/14/16 [Rx Confirmed 02/19/17] Nystatin/Triamcin Cream [Mycolog] 1 applic TOPICAL TID tube 07/14/16 [Rx Confirmed 02/19/17] [place]-3 Acid Ethyl Esters [Lovaza] 1 gm PO DAILY cap 07/14/16 [Rx Confirmed 02/19/17] aspirin 81 mg tablet,delayed release 81 mg PO QDAY 02/19/17 [History Confirmed 02/19/17] clindamycin 1 % topical gel 1 applic TOPICAL QHS 02/19/17 [History Confirmed 02/19/17] coenzyme Q10 10 mg capsule 10 mg PO ONCE 02/19/17 [History Confirmed 02/19/17] ferrous sulfate 325 mg (65 mg iron) tablet PO 02/19/17 [History Confirmed 02/19/17] glatiramer 40 mg/mL subcutaneous syringe 40 mg SC ONCE 02/19/17 [History Confirmed 02/19/17] lansoprazole 30 mg capsule,delayed release 30 mg PO BID 02/19/17 [History Confirmed 02/19/17] ipratropium-albuterol 0.5 mg-3 mg(2.5 mg base)/3 mL nebulization soln 3 ml INHALATION TID #180 ml 03/24/17 [Rx] budesonide 0.5 mg/2 mL suspension for nebulization 0.5 mg INHALATION QDAY #60 ml 03/25/17 [Rx] PFSH Medical History Depression (Chronic) Physical debility (Chronic) Pain (Acute) Hypertension (Chronic) COPD (chronic obstructive pulmonary disease) (Chronic) Community acquired pneumonia (Acute) Multiple sclerosis (Chronic) Stridulous breathing (Acute) Acute respiratory failure (Acute) Empyema of right pleural space (Acute) Aspiration pneumonia (Acute) Dysphagia (Chronic) Acute kidney injury (Acute) Anemia (Chronic) Debility (Chronic) BPH (benign prostatic hypertrophy) (Chronic) Vitamin D deficiency (Chronic) GERD (gastroesophageal reflux disease) (Chronic) Ulcerative esophagitis (Chronic) Gout (Chronic) Pressure ulcer (Chronic) Normal colonoscopy (Acute) Open wound of buttock, complicated (Acute) S/P percutaneous endoscopic gastrostomy (PEG) tube placement (Acute) Surgical History History of esophagogastroduodenoscopy (EGD) (Acute) Family History Mother Colon cancer Breast cancer Lung cancer Father CAD (coronary artery disease) Heart disease Social History Smoking Status: Former smoker alcohol intake: never substance use type: does not use HPI HPI HPI: PETE DANG, is a 72 M who presents to the office today for inspection possible treatment of bloody drainage from his chronic right buttock wound. Dating back at least to January 2016 the patient had a subcutaneous mass overlying the right ischial prominence. Initially I thought it might be a perirectal abscess. That I thought it might be a bursa. In any case it started draining and required a wide excision. It was sutured closed but then broke down and it required almost 1 year of constant wound care management and her intermittent debridements to get resolution. It remained healed for approximately a year then once again when the patient was chronically ill June 2016 it required repeat debridement. That area then completely resolved. The patient has a very attentive Erasmo. The patient has multiple sclerosis and does require significant amount of assistance. Chest 2 days ago there was suddenly a squirt of significant amount of blood and clot from a pinhole at the site of the chronic wound. There is been no fever. No purulence. No erythema around the wound. The patient does take fish oil for his neurologic condition. He is also on a low-dose aspirin. He does go to the [facility] for rehabilitation. With assistance he sits in a wheelchair on gel pads Exam Extrem Other: Physical exam: Right initial buttock wound appears to chronically healed and contracted. It appears superficial. There is no evidence of any deep tracking or induration that that extends towards the anus. There is a superficial subcutaneous tracking that extends for at least 8 cm laterally. I performed ultrasound and there appeared to be squirrels of of material within this located within the subcutaneous tissues tracking back to the old wound site Assessment AND Plan 1. Decubitus ulcer of sacral region, unstageable L89.150 Plan Right ischial chronic pressure sore trauma now with likely bleeding into the subcutaneous tissue. There is no ecchymosis. There is no erythema. There is no tenderness. There is no current drainage. The back etiology to why the tissue would suddenly bleed is not determined. At this point however it extends over at least an 8 may be 10 cm length. This would potentially require quite a incision to adequately evacuate and debrided the area. This is exactly how he sits which has led to prolonged healing of his previous sites. At this time there does not appear to be a pressing issue to place this debriding incision upon him. I am very anxious about how long it took him previously to heal which was essentially 1 year. After extensive discussion with Erasmo it was elected to see how this area evolves. The patient is on aspirin and fish oil. Perhaps the fish oil could be held. The patient's will check with his neurologist. If the area continues to expand then we will have no choice other than to open the area and search for potential source of bleeding. I have concerns currently that the potential source of bleeding could be systemic from anticoagulation related to aspirin and fish oil therapy. If however the area continues to expand then we will have no choice other than to explore the area. The patient's is very attentive and aware. She will notify us as to how this progresses. Cc: OLGA LIDIA Hawkins M.D., F.A.C.S. Coding Level of Care Code Off vis,est,level 2 Diagnoses Decubitus ulcer of sacral region, unstageable L89.150 Pressure ulcer location: sacral region Pressure ulcer stage: unstageable 06/24/17 1410 <Electronically signed by William Flores MD> Date William Flores MD Cosign Signature: Date (if applicable) CC: Daquan Flores III, MD PROGRESS Observed: 05/26/2017 Status: COMPLETED Source: [place] 2:35 PM [facility] REPOSITORY O ID: [id number] Author: Daquan Flores III Service: (none) Author Type: Physician Type: Progress Notes Filed: 05/26/2017 2:35 PM Note Text: Mr. aDng, good news?the iron levels are much improved though you still have a mild anemia. Renal function is fine. I recommend continuing iron supplements for several more months. Continue with physical activity as able. Daquan Flores III, MD, FAAFPr, FERRITIN Collected: 05/25/2017 Status: F Source: [place] 2:10 PM [facility] REPOSITORY TYPE CODE TESTS RESULT OUT OF REFERENCE UNITS RANGE LAB FERR 30.3-565.7 ng/mL Ferritin 35.2 Performed By: #### FERR, IRON, CMP, CBC #### [facility] [address] [place], [place] [address] IRON AND TIBC Collected: 05/25/2017 Status: F Source: [place] 2:10 PM [facility] REPOSITORY TYPE CODE TESTS RESULT OUT OF REFERENCE UNITS RANGE LAB IRN 41-186 ug/dL Iron 51 LAB TIBC 232-386 ug/dL TIBC 318 LAB SAT 15-57 % Transferrin Saturatn 16 Performed By: #### FERR, IRON, CMP, CBC #### [facility] [address] [place], [place] [address] COMP METABOLIC PANEL Collected: 05/25/2017 Status: F Source: [place] 2:10 PM [facility] REPOSITORY TYPE CODE TESTS RESULT OUT OF REFERENCE UNITS RANGE LAB TP 6.3-8.0 g/dL Protein, Total 6.9 LAB ALB 3.9-4.9 g/dL Albumin 4.1 LAB CA 8.5-10.2 mg/dL Calcium, Total 9.3 LAB TBIL 0.2-1.3 mg/dL Bilirubin, Total 0.3 LAB ALKP 36-108 U/L Alkaline Phosphatase 95 LAB AST 14-40 U/L AST 32 LAB GLU 74-99 mg/dL Glucose 77 Result Comment: The [place] Diabetes Association (ADA) provides guidance for cutoff values for fasting glucose and random glucose. The ADA defines fasting as no caloric intake for at least 8 hours. Fas ting plasma glucose results between 100 to 125 mg/dL indicate increased risk for diabetes (prediabetes). Fasting plasma glucose results greater than or equal to 126 mg/dL meet the criteria for diagnosis of diabetes. In the absence of unequivocal hyperglycemia, results should be confirmed by repeat testing. In a patient with classic symptoms of hyperglycemia or hyperglycemic crisis, random plasma glucose results greater than or equal to 200 mg/dL meet the criteria for diagnosis of diabetes. Reference: Standards of Medical Care in Diabetes 2016, [place] [employer]. Diabetes Care. 2016.39(Suppl 1). LAB BUN 9-24 mg/dL BUN 20 LAB CRET 0.73-1.22 mg/dL Creatinine 0.80 LAB NA 136-144 mmol/L Sodium Low 134 LAB K 3.7-5.1 mmol/L Potassium 4.4 LAB CL 97-105 mmol/L Chloride Low 95 LAB CO2 22-30 mmol/L CO2 24 LAB AGAP 9-18 mmol/L Anion Gap 15 LAB ALT 10-54 U/L ALT 36 LAB GFRAA eGFR- Amer. >60 LAB GFRNAA . eGFR-All Other Races >60 Result Comment: eGFR (Estimated GFR) Units of measure: mL/min/1.73 meters squared eGFR is derived from the reexpressed MDRD Study equation using the following parameters: serum creatinine, age, gender and race. The creatinine assay has been calibrated to be traceable to IDMS. An eGFR <60 mL/min/1.73m2 for >3 months is consistent with chronic kidney disease. Refer to KDOQI guidelines for clinical interpretation. In patients with unstable renal function, e.g. those with acute kidney injury, the eGFR may not accurately reflect actual GFR. Performed By: #### FERR, IRON, CMP, CBC #### [facility] [address] [place], [place] [address] CBC Collected: 05/25/2017 Status: F Source: [place] 2:10 PM [facility] REPOSITORY TYPE CODE TESTS RESULT OUT OF REFERENCE UNITS RANGE LAB WBC 3.70-11.00 k/uL WBC 8.24 LAB RBC 4.20-6.00 m/uL RBC 4.60 LAB HGB 13.0-17.0 g/dL Low Hemoglobin 11.2 LAB HCT 39.0-51.0 % Low Hematocrit 37.2 LAB MCV 80.0-100.0 fL MCV 80.9 LAB MCH 26.0-34.0 pG Low MCH 24.3 LAB MCHC 30.5-36.0 g/dL Low MCHC 30.1 LAB RDWCV 11.5-15.0 % RDW-CV High 17.3 LAB PLTCT 150-400 k/uL Platelet Count 324 LAB MPV 9.0-12.7 fL MPV 10.5 LAB ABSNUC <0.01 k/uL Absolute nRBC <0.01 Performed By: #### FERR, IRON, CMP, CBC #### [facility] [address] [place], [place] [address] PROGRESS Observed: 05/25/2017 Status: COMPLETED Source: [place] 1:43 PM [facility] REPOSITORY HNO ID: [id number] Author: Daquan Flores III Service: (none) Author Type: Physician Type: Progress Notes Filed: 05/25/2017 9:27 PM Note Text: SUBJECTIVE: This is a 72 year old male that is here today for Chronic Medical Conditions. 1. COPD--no cough. 2. depression--stable mood. Denies depression 3. MS--stable. Still has weakness LLE, though now able to flex L hip (Y ehr trainer). 4. still has PEG tube --working well. Gets protein supplement with water every AM. PAST MEDICAL HISTORY Diagnosis Date - Abnormality of gait 10/10/2008 - ANEMIA IRON DEF, CHR BLOOD LOSS 07/09/2007 last hb normal 2011 - Anemia, unspecified - Buttock wound - Cervical disc disorder with radiculopathy 03/13/2016 - COPD (chronic obstructive pulmonary disease) ([facility]) - Degeneration of cervical intervertebral disc 09/16/2007 - Depressive disorder, not elsewhere classified 09/25/2010 - Displacement of lumbar intervertebral disc without myelopathy 10/10/2008 - Duodenal ulcer, unspecified as acute or chronic, without hemorrhage, perforation, or obstruction - Dysphagia, unspecified(787.20) 09/26/2009 - GOUT NOS 09/16/2007 - HTN (hypertension) - MS (multiple sclerosis) ([facility]) Dr. 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 Ellison - REDUN PREPUCE AND PHIMOSIS 12/24/2007 - ULCER DUODENAL,ACUTE( Without obstruction) 07/15/2007 Current Outpatient Prescriptions on File Prior to Visit: DULoxetine (CYMBALTA) 60 mg capsule Take 1 capsule by mouth once daily. lansoprazole (PREVACID) 30 mg capsule Take 1 capsule by mouth once daily. Eat 30' after, to activate carBAMazepine chewable (TEGRETOL) 100 mg chewable tablet Take 1 1/2 tablet twice daily. ipratropium-albuterol (DUONEB) 0.5 mg-3 mg(2.5 mg base)/3 mL nebu Inhale 3 mL as instructed three times daily. Use over 5-15minutes per nebulizer. budesonide (PULMICORT) 0.5 mg/2 mL nebulizer solution Use 2 mL via nebulizer once daily. ferrous sulfate 325 mg (65 mg iron) tablet Take 1 tablet by mouth daily with breakfast. Dalfampridine (AMPYRA) 10 mg Tb12 Take 10 mg by mouth twice daily. COMPOUNDED PRESCRIPTION Nebulizer supplies Dx:J44.9 glatiramer (COPAXONE) 40 mg/mL syrg Inject 1 mL subcutaneously every Thursday,Thursday,Thursday. triamcinolone acetonide (KENALOG) 0.1 % cream Apply 1 application to affected area twice daily. Apply sparingly. CALCIUM CARBONATE (CALCIUM 500 ORAL) Take 1 tablet by mouth once daily. clindamycin (CLEOCIN) 1 % external solution Apply 1 application to affected area twice daily. COMPOUNDED PRESCRIPTION acapella 10 puffs three times daily dx: copd 296 Cholecalciferol, Vitamin D3, 5,000 unit cap Take 1 capsule by mouth once daily. vitamin b complex (B COMPLETE) tab Take 1 tablet by mouth once daily. aspirin, enteric coated 81 mg EC tablet Take 81 mg by mouth once daily. desonide 0.05 % cream Apply to affected area twice daily. [place]-3 Fatty Acids (FISH OIL) 500 mg ORAL Cap Take 500 mg by mouth once daily. Coenzyme Q10 (COQ-10) 100 mg ORAL Cap Take 100 mg by mouth once daily. No current facility-administered medications on file prior to visit. FAMILY HISTORY Problem Relation Age of Onset - Colon Cancer Mother age at dx - approx mid 60's - Breast Cancer Mother - Cancer Mother lung ( with) - Coronary Artery Disease Father sudden , age late 60's - Diabetes Other none - Prostate Cancer Other none Social History Substance Use Topics - Smoking status: Former Smoker Packs/day: 1.50 Years: 30.00 Types: Cigarettes Quit date: 12/21/1992 - Smokeless tobacco: Never Used Comment: No smoking in childhood home. - Alcohol use 31.5 oz/week 14 Glasses of Wine (5oz), 7 Cans of Beer (12oz) per week Comment: 1 glases of wine per night BP 126/86 Pulse 80 Resp 18 Wt 70.3 kg (155 lb) BMI 22.89 kg/m2 . OBJECTIVE: APPEARANCE Well appearing, alert, in no acute distress, well-hydrated, well nourished. NECK Negative findings: no adenopathy, trachea midline and normal to palpitation HEART RRR with normal S1 and S2, no murmurs, no gallops, no JVD appreciated LUNG few scattered rhonchi but good air exchange ABDOMEN bowel sounds normoactive, no bruits, soft, non-tender, non-distended, without organomegaly or palpable masses, PEG tube site normal, no tenderness to palpation EXTREMITIES no lower leg edema ASSESSMENT: MS with LLE weakness-stable COPD--stable hx of iron def. anemia PLAN: labs as ordered may discontinue daily protein supplements same medications Daquan Flores III MD CNOV Observed: 05/25/2017 Status: COMPLETED Source: [place] 1:20 PM [facility] REPOSITORY [facility] PETE DANG ([id number]) 1945 M Date Time Provider Department 05/25/17 1:20 PM DAQUAN FLORES IIIWS During your visit today, we recorded the following information about you: Pulse Respiration Blood pressure Weight 80/minute 18/minute 126/86 70.3 kg Daquan Flores III MD 05/25/2017 9:27 PM Signed SUBJECTIVE: This is a 72 year old male that is here today for Chronic Medical Conditions. 1. COPD--no cough. 2. depression--stable mood. Denies depression 3. MS--stable. Still has weakness LLE, though now able to flex L hip (Y ehr trainer). 4. still has PEG tube --working well. Gets protein supplement with water every AM. PAST MEDICAL HISTORY Diagnosis Date - Abnormality of gait 10/10/2008 - ANEMIA IRON DEF, CHR BLOOD LOSS 07/09/2007 last hb normal 2011 - Anemia, unspecified - Buttock wound - Cervical disc disorder with radiculopathy 03/13/2016 - COPD (chronic obstructive pulmonary disease) ([facility]) - Degeneration of cervical intervertebral disc 09/16/2007 - Depressive disorder, not elsewhere classified 09/25/2010 - Displacement of lumbar intervertebral disc without myelopathy 10/10/2008 - Duodenal ulcer, unspecified as acute or chronic, without hemorrhage, perforation, or obstruction - Dysphagia, unspecified(787.20) 09/26/2009 - GOUT NOS 09/16/2007 - HTN (hypertension) - MS (multiple sclerosis) ([facility]) Dr. 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 lansoprazole (PREVACID) 30 mg capsule Take 1 capsule by mouth once daily. Eat 30' after, to ANDquot;activateANDquot; carBAMazepine chewable (TEGRETOL) 100 mg chewable tablet Take 1 1/2 tablet twice daily. ipratropium-albuterol (DUONEB) 0.5 mg-3 mg(2.5 mg base)/3 mL nebu Inhale 3 mL as instructed three times daily. Use over 5-15minutes per nebulizer. budesonide (PULMICORT) 0.5 mg/2 mL nebulizer solution Use 2 mL via nebulizer once daily. ferrous sulfate 325 mg (65 mg iron) tablet Take 1 tablet by mouth daily with breakfast. Dalfampridine (AMPYRA) 10 mg Tb12 Take 10 mg by mouth twice daily. COMPOUNDED PRESCRIPTION Nebulizer supplies Dx:J44.9 glatiramer (COPAXONE) 40 mg/mL syrg Inject 1 mL subcutaneously every Thursday,Thursday,Thursday. triamcinolone acetonide (KENALOG) 0.1 % cream Apply 1 application to affected area twice daily. Apply sparingly. CALCIUM CARBONATE (CALCIUM 500 ORAL) Take 1 tablet by mouth once daily. clindamycin (CLEOCIN) 1 % external solution Apply 1 application to affected area twice daily. COMPOUNDED PRESCRIPTION acapella 10 puffs three times daily dx: copd 296 Cholecalciferol, Vitamin D3, 5,000 unit cap Take 1 capsule by mouth once daily. vitamin b complex (B COMPLETE) tab Take 1 tablet by mouth once daily. aspirin, enteric coated 81 mg EC tablet Take 81 mg by mouth once daily. desonide 0.05 % cream Apply to affected area twice daily. [place]-3 Fatty Acids (FISH OIL) 500 mg ORAL Cap Take 500 mg by mouth once daily. Coenzyme Q10 (COQ-10) 100 mg ORAL Cap Take 100 mg by mouth once daily. No current facility-administered medications on file prior to visit. FAMILY HISTORY Problem Relation Age of Onset - Colon Cancer Mother age at dx - approx mid 60's - Breast Cancer Mother - Cancer Mother lung ( with) - Coronary Artery Disease Father sudden , age late 60's - Diabetes Other none - Prostate Cancer Other none Social History Substance Use Topics - Smoking status: Former Smoker Packs/day: 1.50 Years: 30.00 Types: Cigarettes Quit date: 12/21/1992 - Smokeless tobacco: Never Used Comment: No smoking in childhood home. - Alcohol use 31.5 oz/week 14 Glasses of Wine (5oz), 7 Cans of Beer (12oz) per week Comment: 1 glases of wine per night BP 126/86 Pulse 80 Resp 18 Wt 70.3 kg (155 lb) BMI 22.89 kg/m2 . OBJECTIVE: APPEARANCE Well appearing, alert, in no acute distress, well- hydrated, well nourished. NECK Negative findings: no adenopathy, trachea midline and normal to palpitation HEART RRR with normal S1 and S2, no murmurs, no gallops, no JVD appreciated LUNG few scattered rhonchi but good air exchange ABDOMEN bowel sounds normoactive, no bruits, soft, non-tender, non-distended, without organomegaly or palpable masses, PEG tube site normal, no tenderness to palpation EXTREMITIES no lower leg edema ASSESSMENT: MS with LLE weakness-stable COPD--stable hx of iron def. anemia PLAN: labs as ordered may discontinue daily protein supplements same medications OLGA LIDIA Alvarez MD, III MD 05/25/2017 2:00 PM Signed PLAN: labs as ordered may discontinue daily protein supplements same medications Daquan Flores III MD Referring Provider: DAQUAN FLORES III [[id number]] Allergies As of Date: 05/25/2017 Noted Allergy Reaction HCTZ (THIAZIDES) 10/24/2013 14 - Other: See Comments Comments: nocturia, frequency Date Reviewed: 11/24/2016 Reviewed by: Sully Marcelino Ma - Fully Assessed Reason for Visit: 6 month office visit [Other] Primary Visit Diagnosis:MS (multiple sclerosis) ([facility]) [G35] Other Visit Diagnoses: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 IPRATROPIUM-ALBUTEROL 0.5 MG-* Inhale 3 mL as instructed thr* BUDESONIDE 0.5 MG/2 ML SUSPEN* Use 2 mL via nebulizer once d* FERROUS SULFATE 325 MG (65 MG* Take 1 tablet by mouth daily * DALFAMPRIDINE ER 10 MG TABLET* Take 10 mg by mouth twice aubree* COMPOUNDED PRESCRIPTION Nebulizer supplies Dx:J44.9 GLATIRAMER 40 MG/ML SUBCUTANE* Inject 1 mL subcutaneously ev* TRIAMCINOLONE ACETONIDE 0.1 %* Apply 1 application to affect* CALCIUM 500 ORAL Take 1 tablet by mouth once d* CLINDAMYCIN PHOSPHATE 1 % TOP* Apply 1 application to affect* COMPOUNDED PRESCRIPTION acapella 1* CHOLECALCIFEROL (VITAMIN D3) * Take 1 capsule by mouth once * VITAMIN B COMPLEX TABLET Take 1 tablet by mouth once d* ASPIRIN 81 MG TABLET,DELAYED * Take 81 mg by mouth once doretha* DESONIDE 0.05 % TOPICAL CREAM Apply to affected area twice* * OMEGA-3 FATTY ACIDS 500 MG CA* Take 500 mg by mouth once aubree* * COENZYME Q10 100 MG CAPSULE Take 100 mg by mouth once aubree* Problem List As Of Date 05/25/2017 Noted Resolved ANEMIA IRON DEF, CHR BLOOD LOSS [D50.0] INVALID FOR*04/28/2012 Priority: Moderate More... GASTRITIS ANTRAL( W/O Hemorrhage) [K29.60] INVALID FOR*10/14/2011 ULCER DUODENAL,ACUTE( Without obstruction) [K26*INVALID FOR*10/14/2011 ESOPHAGITIS REFLUX [K21.0] INVALID FOR* DIVERTICULOSIS, ARMIJO-COLONIC [K57.30] INVALID FOR* More... Degeneration of cervical intervertebral disc [M*INVALID FOR* Gout, unspecified [M10.9] INVALID FOR*04/28/2012 More... Redundant prepuce and phimosis [N47.8] INVALID FOR*10/14/2011 More... Other psoriasis [L40.8] INVALID FOR* More... Displacement of lumbar intervertebral disc with*INVALID FOR* Abnormality of gait [R26.9] INVALID FOR* Fam hx-ischem heart disease [Z82.49] INVALID FOR* More... Dysphagia [R13.10] INVALID FOR*10/14/2011 Duodenitis [K29.80] INVALID FOR*03/13/2016 Hiatal hernia [K44.9] INVALID FOR*10/14/2011 Esophagitis [K20.9] INVALID FOR*10/14/2011 Dysphagia [R13.10] INVALID FOR* Loss of weight [R63.4] INVALID FOR*10/14/2011 Multiple sclerosis [G35] INVALID FOR*01/26/2014 Priority: Very Severe More... Cervical spondylosis without myelopathy [M47.81*INVALID FOR* Examination of participant or control in clinic*INVALID FOR* More... 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 Family history of colon cancer [Z80.0] INVALID FOR* COPD (chronic obstructive pulmonary disease) [J*INVALID FOR*05/22/2014 MS (multiple sclerosis) (HCC) [G35] INVALID FOR* Acute exacerbation of chronic bronchitis (HCC) *INVALID FOR*03/13/2016 COPD (chronic obstructive pulmonary disease) (H*INVALID FOR* Wound, open, buttock [S31.809A] INVALID FOR*11/24/2016 Essential hypertension [I10] INVALID FOR*08/18/2016 Laceration of elbow, left [S51.012A] INVALID FOR*03/13/2016 Bursitis [M71.9] INVALID FOR*03/13/2016 Cervical disc disorder with radiculopathy [M50.*INVALID FOR* Iron deficiency anemia [D50.9] INVALID FOR* Other instructions from your clinician: PLAN: labs as ordered may discontinue daily protein supplements same medications Daquan Flores III MD Medications Discontinued During This Encounter Cyanocobalamin (VITAMIN B-12) 500 mc* 05/25/2017 Class: Historical Med Route: ORAL Sig: Take by mouth once daily. Disc: Discontinued by Patient Encounter Status:Closed by DAQUAN FLORES III, MD on 05/25/17 ALLERGIES ALLERGIES DATE TYPE / CODE NAME / CODE REACTION SEVERITY SOURCE 03/25/2018 Drug hydrochlorothiaz Unknown Unknown [facility] Allergy/416 tee/[id number]([facility] 863112(SNOM XNORM) Repository ED CT) 10/24/2013 Drug THIAZIDES OTHER: SEE C [facility] Class/[address] [facility] 1003(SNOMED Repository CT) ENCOUNTERS ENCOUNTERS ADMIT/DISCHARGE ACCOUNT ADMITTING ENCOUNTER LOCATION SOURCE NUMBER CLASS 03/29/2018 [id number] Salas, Inpatient Michelle St Encounter [facility] ing:RURoom: Repository [id number]: 1 03/29/2018 [id number] Josue, Ambulatory BMSBuilding:[address] [facility] Repository 03/26/2018/03/29/19 [id number] Sementi, Inpatient Kirk Kir[place]avia [place] Encounter [facility] ing:QI2Ajiy: Repository [id number]: 1 03/26/2018 [id number] Sementi, Ambulatory BMSBuilding:Denzel Kumari MS.[facility] Repository 03/26/2018 [id number] Sementi, Ambulatory BMSBuilding:Denzel Kumari MS.[facility] Repository 03/26/2018 [id number] Sementi, Ambulatory BMSBuilding:Denzel Kumari MS.[facility] Repository 03/26/2018 [id number] Sementi, Ambulatory BMSBuilding:Denzel Kumari MS.[facility] Repository 03/25/2018 [id number] Sementi, Ambulatory BMSBuilding:Denzel Kumari MS.[facility] Repository 03/16/2018/03/18/19 [id number] Ambulatory [address] Repository 03/04/2018/03/04/20 [id number] Ambulatory [facility] Repository 03/04/2018/03/04/20 [id number] Ambulatory [place] [facility] Repository 01/08/2018/01/09/20 [id number] Ambulatory BMSBuilding:Denzel Martinez 18 [facility] Repository 11/30/2017/12/02/19 [id number] Ambulatory [address] Repository 11/11/2017/11/12/19 [id number] Ambulatory [address] Repository 06/24/2017/06/25/19 [id number] Ambulatory BMSBuilding:Denzel Martinez 18 MS.[facility] Repository 06/23/2017 [id number] Ambulatory BMSBuilding:Denzel Martinez MS.[facility] Repository 05/25/2017/05/26/19 [id number] Ambulatory [address] Repository 05/25/2017/05/27/19 [id number] Ambulatory [address] Repository PAYERS PAYERS ENCOUNTER GUARANTOR PAYER SUBSCRIBER SOURCE 03/29/2018 PETE A Primary PETE A Kirk [id number] Insurance:MEDICARE MOWRERDOB: Community BLESSING [facility] [id number] Number: Repository [address]Gtp: 330 [id number] [phone] () Date:2018-03-29 03/29/2018 Secondary PETE A Kirk Insurance:AARPPolicy MOWRERDOB: [facility] Number: [id number] [facility] [id number] Repository Date:0787-78-37[address], [place] [address]YG: 03/29/2018 Tertiary NOT GIVENUNK Kirk Insurance:SELF PAY [facility] Number: Effective Repository Date:2018-03-29 03/29/2018 PETE A Primary PETE A Kirk [id number] Insurance:MEDICARE MOWRERDOB: Community BLESSING PART A [facility] [id number] Number: Repository [address]Amq: 330 [id number] [phone] () Date:2018-03-29 03/29/2018 Secondary PETE A Kirk Insurance:AARPPolicy MOWRERDOB: Community Number: [id number] [facility] [id number] Repository Date:5039-36-39[address]Q, [place] [address]QG: 03/29/2018 Tertiary NOT GIVENUNK Michelle Insurance:SELF PAY [facility] Number: Effective Repository Date:2018-03-29 03/26/2018 PETE A Primary PETE A Michelle [id number] Insurance:MEDICARE MOWRERDOB: Community BLESSING PART A [facility] [id number] Number: Repository [id number]: 330 [id number] [phone] () Date:2018-03-25 03/26/2018 Secondary PETE A Kirk Insurance:AARPPolicy MOWRERDOB: Community Number: [id number] Hospital [id number] Repository Date:3469-53-36[address], [place] [address]PL: 03/26/2018 Tertiary NOT GIVENUNK Michelle Insurance:SELF PAY [facility] Number: Effective Repository Date:2018-03-25 03/26/2018 PETE A Primary PETE A Michelle [id number] Insurance:MEDICARE MOWRERDOB: Community BLESSING PART A [facility] [id number] Number: Repository [address]Uwp: 330 [id number] [phone] () Date:2018-03-25 03/26/2018 Secondary PETE A Michelle Insurance:AARPPolicy MOWRERDOB: Community Number: [id number] [facility] [id number] Repository Date:1350-13-66[address], [place] [address]EL: 03/26/2018 Tertiary NOT GIVENUNK Michelle Insurance:SELF PAY Community [facility] Number: Effective Repository Date:2018-03-26 03/26/2018 PETE A Primary PETE A Kirk [id number] Insurance:MEDICARE MOWRERDOB: Community BLESSING PART A [facility] [id number] Number: Repository 12[address]Xoy: 330 [id number] [phone] () Date:2018-03-25 03/26/2018 Secondary PETE A Michelle Insurance:AARPPolicy MOWRERDOB: Community Number: [id number] Hospital [id number] Repository Date:1357-43-43[address]NLMMTF, [place] [address]JV: 03/26/2018 Tertiary NOT GIVENUNK Kirk Insurance:SELF PAY [facility] Number: Effective Repository Date:2018-03-26 03/26/2018 PETE A Primary PETE A Kirk [id number] Insurance:MEDICARE MOWRERDOB: Community BLESSING PART A [facility] [id number] Number: Repository [address]Vsg: 330 [id number] [phone] () Date:2018-03-25 03/26/2018 Secondary PETE A Michelle Insurance:AARPPolicy MOWRERDOB: Community Number: [id number] Hospital [id number] Repository Date:3769-62-12[address], [place] [address]LH: 03/26/2018 Tertiary NOT GIVENUNK Michelle Insurance:SELF PAY [facility] Number: Effective Repository Date:2018-03-26 03/26/2018 PETE A Primary PETE A Michelle [id number] Insurance:MEDICARE MOWRERDOB: Community BLESSING PART A [facility] [id number] Number: Repository [address]Ppp: 330 [id number] [phone] () Date:2018-03-25 03/26/2018 Secondary PETE A Kirk Insurance:AARPPolicy MOWRERDOB: Community Number: [id number] Hospital [id number] Repository Date:5082-38-81[address]XTJK, [place] [address]RA: 03/26/2018 Tertiary NOT GIVENUNK Kirk Insurance:SELF PAY Community [facility] Number: Effective Repository Date:2018-03-26 03/25/2018 PETE A Primary PETE A Michelle [id number] Insurance:MEDICARE MOWRERDOB: Community BLESSING PART A [facility] [id number] Number: Repository [address]Snj: 330 [id number] [phone] () Date:2018-03-25 03/25/2018 Secondary PETE A Michelle Insurance:AARPPolicy MOWRERDOB: Community Number: [id number] Hospital [id number] Repository Date:7501-96-75[address]XEH[place], [place] [address]LI: 03/25/2018 Tertiary NOT GIVENUNK Michelle Insurance:SELF PAY [facility] Number: Effective Repository Date:2018-03-25 01/08/2018 PETE [id number] Primary PETE MOWRERDOB: Michelle BLESSING Insurance:MEDICARE [id number] PART A [facility] [address]Voh: (330) Number: Repository [phone] () [id number] Date:2017-12-23 01/08/2018 Secondary PETE MOWRERDOB: Michelle Insurance:AARPPolicy [id number] Community Number: [facility] [id number] Repository Date:4713-92-95[address]RQ[place]JU, [place] [address]YU: 01/08/2018 Tertiary NOT GIVENUNK Michelle Insurance:SELF PAY [facility] Number: Effective Repository Date:2017-12-23 06/24/2017 PETE [id number] Primary PETE MOWRERDOB: Kirk BLESSING Insurance:MEDICARE [id number] PART [place] [facility] [address]Rih: (841) Number: Repository [phone] () [id number] Date:2017-06-23 06/24/2017 Secondary PETE MOWRERDOB: Kirk Insurance:AARPPolicy [id number] Community Number: Hospital [id number] Repository Date:1968-01-98[facility] [address], [place] [address]MK: 06/24/2017 Tertiary NOT GIVENUNK Michelle Insurance:SELF PAY [facility] Number: Effective Repository Date:2017-06-24 06/23/2017 PETE [id number] Primary Insurance:MMO PETE MOWRERDOB: [place] [facility] [id number] Number: Hospital [id number]: [phone] [id number] Repository [phone] () Date:5669-14-32MR [address] [place] [address]SM: 06/23/2017 Secondary NOT GIVENUNK Kirk Insurance:SELF PAY [facility] Number: Effective Repository Date:2017-06-23
== END 2018-03-29 15:23 | DRG 190 ==
LOC: ED 13:14 → MS3 16:18
PROVIDERS: Internal Medicine; Admitting Provider Internal Medicine; Emergency Provider Emergency Medicine; Family Provider Family Medicine; PCP Family Medicine; Visit Provider Family Medicine
DX: J44.0 Chronic obstructive pulmonary disease with (acute) lower respiratory infection (principal); E43 Unspecified severe protein-calorie malnutrition; J20.5 Acute bronchitis due to respiratory syncytial virus; J44.1 Chronic obstructive pulmonary disease with (acute) exacerbation; D50.9 Iron deficiency anemia, unspecified; F32.9 Major depressive disorder, single episode, unspecified; Z93.1 Gastrostomy status; G35 Multiple sclerosis; R13.10 Dysphagia, unspecified; N40.0 Benign prostatic hyperplasia without lower urinary tract symptoms; R09.02 Hypoxemia; Z68.21 Body mass index [BMI] 21.0-21.9, adult; I10 Essential (primary) hypertension; R53.81 Other malaise; K21.9 Gastro-esophageal reflux disease without esophagitis; Z79.899 Other long term (current) drug therapy; Z87.891 Personal history of nicotine dependence; E55.9 Vitamin D deficiency, unspecified
CPT/HCPCS: 36415; 71046; 80048; 81001; 83735; 85025; 85027; 87633; 92523; 92526; 93005; 94640; 94667; 94668; 97110; 97162; 97165; 97166; 97530; 97535; 97802; 99283; A4216

== ENCOUNTER 2018-03-29 15:40 | Inpatient (IN) | payer MEDICARE, OTHER, SELFPAY ==
[2018-03-25 17:15] VITALS: BMI 21.1
--- NOTE | 2018-03-29 16:26 | CHAPLAIN ---
Type of Pastoral Visit _x__ Initial Visit ___ Follow-up Visit ___ On-call Visit ___ General Patient Visit ___ Spiritual Assessment ___ Family Conference ___ Bereavement ___ Rapid Response ___ Code Blue ___ Other (describe below) Pastoral Care Referral From _x__ Patient _x__ Family ___ Nurse ___ Physician ___ Glue Wheel Operator ___ Retread Operator ___ Other (describe below) Sacrament/Intervention _x__ Active listening ___ Anointing ___ Anabaptist ___ Bereavement ___ Communion ___ Cecelia exploration ___ ___ Life review _x__ Prayer ___ Reconciliation ___ Sacrament of Sick _x__ Supportive presence ___ Wedding ___ Other (describe below) Pastoral Comments saw patient and family member while he was still a patient in [facility] today; pt was waiting to be moved to this Rehab; got acquainted and offered to see again in Rehab; pt welcomed visit and future contact; family member expressed appreciation for team care for pt
[2018-03-29 16:39] VITALS: BP 128/75; PULSE 102; RESP 18; TEMP 36.6; O2SAT 89; BMI 21.1
[2018-03-29 18:42] VITALS: O2SAT 95
[2018-03-29 19:43] VITALS: BP 133/73; PULSE 100; RESP 19; TEMP 36.4; O2SAT 90
[2018-03-29 19:52] VITALS: BMI 21.2
[2018-03-29] MEDS: DALFAMPRIDINE 10 MG TAB.ER.12H PO (20:34)
[2018-03-29] MEDS: carBAMazepine 200 MG Tablet 100 MG PO (20:38)
[2018-03-29] MEDS: carBAMazepine 200 MG Tablet PO (20:45)
[2018-03-30 07:00] VITALS: BP 164/95; PULSE 80; RESP 18; TEMP 36.6; O2SAT 95
[2018-03-30 07:18] VITALS: O2SAT 90
[2018-03-30] MEDS: DALFAMPRIDINE 10 MG TAB.ER.12H PO ×2 (08:05→20:44)
[2018-03-30] MEDS: Enoxaparin 40 MG/0.4 ML Syringe SC (08:06)
[2018-03-30] MEDS: Calcium (Elemental) 500 MG Tablet PO (08:07)
[2018-03-30] MEDS: Vitamin B Comp W-C Capsule 1 CAP PO (08:07)
[2018-03-30] MEDS: amLODIPine 5 MG Tablet PO (08:07)
[2018-03-30] MEDS: Losartan Potassium 100 MG Tablet PO (08:07)
[2018-03-30] MEDS: DULoxetine Hcl 60 MG Capsule PO (08:07)
[2018-03-30] MEDS: Pantoprazole Sodium 40 MG Tablet PO (08:07)
[2018-03-30 10:00] VITALS: PULSE 78; RESP 21
--- NOTE | 2018-03-30 10:32 | PCM.PN.HOSP ---
Subjective: 73-year-old male who presented to the emergency room due to progressive generalized weakness. He has had a past medical history of multiple sclerosis and was presenting with RSV B bronchitis wheezing leading to an acute hypoxic respiratory failure as well as a COPD exacerbation during his inpatient stay. Was started on inhalers as well as steroids which caused an improvement in his respiratory status however he was still having difficulty with mobility and strength and was transferred to the inpatient rehab. He states that he is doing well and feels well. Vitals/I&O's: Vital Signs Temp Pulse Resp BP Pulse Ox 97.8 F 80 18 164/95 H 90 03/30/18 07:00 03/30/18 07:00 03/30/18 07:00 03/30/18 07:00 03/30/18 07:18 Oxygen Flow Rate (L/min) 2 Oxygen Delivery Method Room Air Weight: 142 lb 13.753 oz Body Mass Index (BMI) 21.1 Intake and Output for Last 24 Hours 03/28/18 03/29/18 03/30/18 23:59 23:59 23:59 Intake Total 240 / 240 240 / 240 Output Total 250 / 250 Balance -10 / -10 240 / 240 General: Alert, Oriented x3, Cooperative, No apparent distress HEENT: Atraumatic, EOMI, Normocephalic Oral: Moist Mucosa Neck: Supple, No JVD Lungs: Normal air movement, No rhonchi, bilateral wheeze, No rales, Diminished Cardiovascular: Regular rate, Regular Rhythm, Normal S1, Normal S2, No murmurs Abdomen: Soft, Non Tender, Non-Distended, No Hepato-splenomegaly Extremities: No edema, Capillary Refill Less than 3 Seconds Skin: No rashes, No breakdown Neurological: Neuro grossly intact, Sensory exam intact to light touch and pain Current Medications Albuterol Sulfate (Ventolin Hfa (Sp)) 2 puff INHALATION Q4H PRN PRN Reason: COPD Amlodipine Besylate (Norvasc) 5 mg PO DAILY [facility] Last Admin: 03/30/18 08:07 Dose: 5 mg Bisacodyl (Dulcolax) 10 mg RECTAL .PRN X 1 PRN PRN Reason: Constipation Budesonide (Pulmicort Aerosol) 0.5 mg INHALATION DAILY [facility] Last Admin: 03/30/18 09:46 Dose: Not Given Calcium Carbonate (Os-Eulogio 500) 500 mg PO DAILY [facility] Last Admin: 03/30/18 08:07 Dose: 500 mg Carbamazepine (Tegretol) 100 mg PO DAILY [facility] Last Admin: 03/29/18 20:38 Dose: 100 mg Carbamazepine (Tegretol) 200 mg PO QHS [facility] Last Admin: 03/29/18 20:45 Dose: 200 mg Cholecalciferol (Vitamin D) 5,000 unit PO DAILY [facility] Last Admin: 03/30/18 08:06 Dose: 5,000 unit Duloxetine HCl (Cymbalta) 60 mg PO DAILY [facility] Last Admin: 03/30/18 08:07 Dose: 60 mg Enoxaparin Sodium (Lovenox) 40 mg SC DAILY [facility] Last Admin: 03/30/18 08:06 Dose: 40 mg Glatiramer Acetate (Copaxone) 40 mg SQ MOWEFR [facility] Losartan Potassium (Cozaar) 100 mg PO DAILY [facility] Last Admin: 03/30/18 08:07 Dose: 100 mg Magnesium Hydroxide (Milk Of Magnesia) 30 ml PO .PRN X 1 PRN PRN Reason: Constipation Multivitamins (Allbee W/C Caplet, Thera B Comp/C) 1 capsule PO DAILY [facility] Last Admin: 03/30/18 08:07 Dose: 1 capsule Nutritional Formula (Lactose Free) (Ensure Enlive) 237 ml PO QHS [facility] Last Admin: 03/29/18 20:35 Dose: Not Given Pantoprazole Sodium (Protonix) 40 mg PO DAILY [facility] Last Admin: 03/30/18 08:07 Dose: 40 mg Senna/Docusate Sodium (Senokot-S, Rekha-Colace) 2 tablet PO BID [facility] Last Admin: 03/30/18 08:08 Dose: Not Given Medical Necessity - Tobacco Use Smoking Status: Former smoker Assessment/Plan All Active Problems (Last Reviewed 03/29/18 @ 12:02 by Maciel Salas MD) Acute respiratory failure (Acute) Empyema of right pleural space (Resolved) PEG (percutaneous endoscopic gastrostomy) adjustment/replacement/removal (Resolved) 1. Generalized weakness secondary to acute RSV B bronchitis/acute hypoxic respiratory failure which has resolved/acute COPD exacerbation -We will continue with his p.o. prednisone and inhalers for his COPD exacerbation, will add duoneb to his regimen -PT and OT 2. MS -We will continue with his home medications as well as physical therapy 3. Depression -Stable -Continue with his Cymbalta 4. Chronic severe protein calorie malnutrition -Has a PEG tube in place -Continue with feeds 5. Hypertension -Systolic blood pressures in the 130s-150s -Continue with Norvasc and losartan 6. GERD -Stable -Continue with PPI DVT: Cassienox Code Visit Inpatient E&M: 00846 [facility]
--- NOTE | 2018-03-30 10:36 | PN_ITS ---
Subjective: 73-year-old male who presented to the emergency room due to progressive generalized weakness. He has had a past medical history of multiple sclerosis and was presenting with RSV B bronchitis wheezing leading to an acute hypoxic respiratory failure as well as a COPD exacerbation during his inpatient stay. Was started on inhalers as well as steroids which caused an improvement in his respiratory status however he was still having difficulty with mobility and strength and was transferred to the inpatient rehab. He states that he is doing well and feels well. Vitals/I&O's: Vital Signs Temp Pulse Resp BP Pulse Ox 97.8 F 80 18 164/95 H 90 03/30/18 07:00 03/30/18 07:00 03/30/18 07:00 03/30/18 07:00 03/30/18 07:18 Oxygen Flow Rate (L/min) 2 Oxygen Delivery Method Room Air Weight: 142 lb 13.753 oz Body Mass Index (BMI) 21.1 Intake and Output for Last 24 Hours 03/28/18 03/29/18 03/30/18 23:59 23:59 23:59 Intake Total 240 / 240 240 / 240 Output Total 250 / 250 Balance -10 / -10 240 / 240 General: Alert, Oriented x3, Cooperative, No apparent distress HEENT: Atraumatic, EOMI, Normocephalic Oral: Moist Mucosa Neck: Supple, No JVD Lungs: Normal air movement, No rhonchi, bilateral wheeze, No rales, Diminished Cardiovascular: Regular rate, Regular Rhythm, Normal S1, Normal S2, No murmurs Abdomen: Soft, Non Tender, Non-Distended, No Hepato-splenomegaly Extremities: No edema, Capillary Refill Less than 3 Seconds Skin: No rashes, No breakdown Neurological: Neuro grossly intact, Sensory exam intact to light touch and pain Current Medications Albuterol Sulfate (Ventolin Hfa (Sp)) 2 puff INHALATION Q4H PRN PRN Reason: COPD Amlodipine Besylate (Norvasc) 5 mg PO DAILY [facility] Last Admin: 03/30/18 08:07 Dose: 5 mg Bisacodyl (Dulcolax) 10 mg RECTAL .PRN X 1 PRN PRN Reason: Constipation Budesonide (Pulmicort Aerosol) 0.5 mg INHALATION DAILY [facility] Last Admin: 03/30/18 09:46 Dose: Not Given Calcium Carbonate (Os-Eulogio 500) 500 mg PO DAILY [facility] Last Admin: 03/30/18 08:07 Dose: 500 mg Carbamazepine (Tegretol) 100 mg PO DAILY [facility] Last Admin: 03/29/18 20:38 Dose: 100 mg Carbamazepine (Tegretol) 200 mg PO QHS [facility] Last Admin: 03/29/18 20:45 Dose: 200 mg Cholecalciferol (Vitamin D) 5,000 unit PO DAILY [facility] Last Admin: 03/30/18 08:06 Dose: 5,000 unit Duloxetine HCl (Cymbalta) 60 mg PO DAILY [facility] Last Admin: 03/30/18 08:07 Dose: 60 mg Enoxaparin Sodium (Lovenox) 40 mg SC DAILY [facility] Last Admin: 03/30/18 08:06 Dose: 40 mg Glatiramer Acetate (Copaxone) 40 mg SQ MOWEFR [facility] Losartan Potassium (Cozaar) 100 mg PO DAILY [facility] Last Admin: 03/30/18 08:07 Dose: 100 mg Magnesium Hydroxide (Milk Of Magnesia) 30 ml PO .PRN X 1 PRN PRN Reason: Constipation Multivitamins (Allbee W/C Caplet, Thera B Comp/C) 1 capsule PO DAILY [facility] Last Admin: 03/30/18 08:07 Dose: 1 capsule Nutritional Formula (Lactose Free) (Ensure Enlive) 237 ml PO QHS [facility] Last Admin: 03/29/18 20:35 Dose: Not Given Pantoprazole Sodium (Protonix) 40 mg PO DAILY [facility] Last Admin: 03/30/18 08:07 Dose: 40 mg Senna/Docusate Sodium (Senokot-S, Rekha-Colace) 2 tablet PO BID [facility] Last Admin: 03/30/18 08:08 Dose: Not Given Medical Necessity - Tobacco Use Smoking Status: Former smoker Assessment/Plan All Active Problems (Last Reviewed 03/29/18 @ 12:02 by Maciel Salas MD) Acute respiratory failure (Acute) Empyema of right pleural space (Resolved) PEG (percutaneous endoscopic gastrostomy) adjustment/replacement/removal (Resolved) 1. Generalized weakness secondary to acute RSV B bronchitis/acute hypoxic respiratory failure which has resolved/acute COPD exacerbation -We will continue with his p.o. prednisone and inhalers for his COPD exacerbation, will add duoneb to his regimen -PT and OT 2. MS -We will continue with his home medications as well as physical therapy 3. Depression -Stable -Continue with his Cymbalta 4. Chronic severe protein calorie malnutrition -Has a PEG tube in place -Continue with feeds 5. Hypertension -Systolic blood pressures in the 130s-150s -Continue with Norvasc and losartan 6. GERD -Stable -Continue with PPI DVT: Cassienox Code Visit Inpatient E&M: [id number] [facility] L3
--- NOTE | 2018-03-30 12:09 | REHABEVAL_ITS ---
Admission Information Status Changes from Prescreening?: No changes Identified Actual Problem List:: Falls, Pain, ALteration in Cmfrt, Cognitve Impr/Memory Loss, Mobility Impaired, Self Care Deficit, Alteration/ Air Exchange, Ineffect.D/C Plan r/t Psy Potential Problem List:: DVT, Bleeding, Infection, UTI, Aspiration, Falls, Skin Integrity, Depression Risk of Complications DVT: LMWH, JOSE CRUZ Hose, Sequential Compression Device Bleeding: Monitor Lab Values, Nursing to Teach Precautions for anti-coagulation therapy., Wound, if applicable, to be assessed every shift., Stroke patients assessed for lethargy or change in status. Infection: Clinical Staff to Monitor for S/S of infection:, S/S of infection include fever, redness, warmth, etc. Urinary Tract Infection: Monitor for frequency, burning, discomfort, or incontinence., Nursing will obtain urine sample for urinalysis and C&S when ordered. Aspiration: Clinical staff will monitor for coughing, drooling, congestion., Speech will evaluate swallowing and dsyphasia., Nursing will monitor patient swallowing during meals. Falls: Patient will be evaluated for Fall Precautions, Patient will be placed on Fall Precautions as indicated per protocol. Skin Breakdown: Nursing will assess skin daily using assessment tool., Nursing will place on Skin Breakdown Precautions as indicated. Pain: Clinical staff will assess patient's pain level per protocol., Medications will be given, if needed, and the pain level reassessed., Other methods: Massage, distraction, decrease stimulus, etc. used PRN. Plan of Care Patient requires physician specializing in physical medicine and rehab oversight to provide close medical supervision of rehab issues including: Pain Management, Sleep Problems, Bowel and Bladder, Medical and co-morbidity Management, DVT prophylaxis, Rehabilitation Leadership, Coordination of treatment team Patient needs Physical Therapy: For a minimum of 1 hour, At least 5 out of 7 days Patient needs Physical Therapy to improve:: Mobility, Mobility, Mobility, Strengthening, Transfers, Stretching, ROM, Endurance, Stairs, Gait, Balance Patient needs Occupational Therapy: For a minimum of 1 hour, At least 5 out of 7 days Patient needs Occupational Therapy to improve ADL's incl.: Eating, Grooming, Bathing, Dressing, Toileting, Toilet transfers, Community Reintegration, Higher functioning activities, Household tasks, Adaptive Equipment, Splinting, Other activities as determined Patient requires speech therapy: For a minimum of 1 hour, At least 5 out of 7 days Patient requires speech therapy for: Swallowing, Cognition, Language Skills, Compensatory Strategies Patient requires 24/ Rehabilitation Nursing for: Pain Issues, Identifying and preventing risk factors, Monitoring and reporting current medical conditions, Assisting with ambulation, transfer, and all ADL's, Teaching patients about dise ase process and medications, Family teaching, Providing safe environment, Bowel and Bladder Issues, Skin integrity, Medication Management Patient needs Employment Representative/ Case Management for: Discharge Planning, Arranging Home Equipment or Services, Family Interventions Patient needs Dietary and Nutrition Services for: Adequate Nutrition, Nutritional Supplements, Nutritional Education Goals Patient will remain: free from falls, or injury at time of discharge. Patient will perform bed mobility at: MOD I level of assist. Patient will complete transfers from bed to chair at: MOD I level of assist. Patient will ambulate: 100 feet, with MOD I assist, with LRD Patient will complete upper body dressing at: MOD I level of assist. Patient will complete lower body dressing at: MOD I level of assist. Patient will complete toileting at: MOD I level of assist. Patient will perform bathing at: MOD I level of assist. Patient will complete grooming at: MOD I level of assist. Patient will complete home management skills at: MOD I level of assist. Patient will achieve: 12 stairs, at MOD I assist Patient will have pain level of: of 3 or less Patient's skin will: remain intact, free from infection. Patient will receive: adequate nutrition. Discharge Planning Pt Prognosis for Sig. Practical Improv. w/in Reasonable Time: Good Anticipated D/C Destination: Home with Outpt Therapy Was Preadmission Assessment Accurate?: Yes
--- NOTE | 2018-03-30 12:12 | PN.NEURO_ITS ---
Subjective: No complaints. is present. He apparently did not sleep very well last night they believe this is due to an uncomfortable bed which staff is aware of and will adjust. No other complaints. Tolerating therapies. No shortness of breath at current. - Physical Exam General: Alert, Oriented x3, Cooperative, No apparent distress Neurological: Cranial nerves II-XII grossly intact Psych/Mental Status: Normal Affect, Alert and oriented to time, place, person, mood and affect Vital Signs Temp Pulse Resp BP Pulse Ox 36.6 C 78 21 H 164/95 H 90 03/30/18 07:00 03/30/18 10:00 03/30/18 10:00 03/30/18 07:00 03/30/18 07:18 Oxygen Flow Rate (L/min) 2 Oxygen Delivery Method Room Air Weight: 64.8 kg Body Mass Index (BMI) 21.1 Intake and Output for Last 24 Hours 03/28/18 03/29/18 03/30/18 23:59 23:59 23:59 Intake Total 240 / 240 240 / 240 Output Total 250 / 250 Balance -10 / -10 240 / 240 Current Medications Generic Name Dose Route Start Last Admin Trade Name Freq PRN Reason Stop Dose Admin Albuterol Sulfate 2 puff 03/29/18 17:03 Ventolin Hfa (Sp) INHALATION Q4H PRN COPD Albuterol/Ipratropium 3 ml 03/30/18 11:00 Duoneb INHALATION Q4HWA.RT [facility] Amlodipine Besylate 5 mg 03/30/18 10:00 03/30/18 08:07 Norvasc PO 5 mg DAILY [facility] Administration Bisacodyl 10 mg 03/29/18 17:23 Dulcolax RECTAL .PRN X 1 PRN Constipation Budesonide 0.5 mg 03/30/18 10:00 03/30/18 09:46 Pulmicort Aerosol INHALATION 03/30/18 22:30 Not Given DAILY [facility] Calcium Carbonate 500 mg 03/30/18 10:00 03/30/18 08:07 Os-Eulogio 500 PO 500 mg DAILY [facility] Administration Carbamazepine 100 mg 03/30/18 10:00 03/29/18 20:38 Tegretol PO 100 mg DAILY [facility] Administration Carbamazepine 200 mg 03/29/18 22:00 03/29/18 20:45 Tegretol PO 200 mg QHS [facility] Administration Cholecalciferol 5,000 unit 03/30/18 10:00 03/30/18 08:06 Vitamin D PO 5,000 unit DAILY [facility] Administration Duloxetine HCl 60 mg 03/30/18 10:00 03/30/18 08:07 Cymbalta PO 60 mg DAILY [facility] Administration Enoxaparin Sodium 40 mg 03/30/18 10:00 03/30/18 08:06 Lovenox SC 40 mg DAILY [facility] Administration Glatiramer Acetate 40 mg 03/31/18 10:00 Copaxone SQ MOWEFR [facility] Losartan Potassium 100 mg 03/30/18 10:00 03/30/18 08:07 Cozaar PO 100 mg DAILY [facility] Administration Magnesium Hydroxide 30 ml 03/29/18 17:23 Milk Of Magnesia PO .PRN X 1 PRN Constipation Multivitamins 1 capsule 03/30/18 10:00 03/30/18 08:07 Allbee W/C Caplet, Thera B Comp/C PO 1 capsule DAILY [facility] Administration Nutritional Formula (Lactose Free) 237 ml 03/29/18 22:00 03/29/18 20:35 Ensure Enlive PO Not Given QHS [facility] Pantoprazole Sodium 40 mg 03/30/18 10:00 03/30/18 08:07 Protonix PO 40 mg DAILY [facility] Administration Polyethylene Glycol 17 gm 03/31/18 08:00 Miralax GT DAILY@0800 [facility] Prednisone 40 mg 03/31/18 08:00 PO 04/07/18 08:01 DAILY@0800 [facility] Senna/Docusate Sodium 2 tablet 03/29/18 22:00 03/30/18 08:08 Senokot-S, Rekha-Colace PO Not Given BID [facility] Medical Necessity - Tobacco Use Smoking Status: Former smoker Assessment/Plan All Active Problems (Last Reviewed 03/29/18 @ 12:02 by Maciel Salas MD) Acute respiratory failure (Acute) Empyema of right pleural space (Resolved) PEG (percutaneous endoscopic gastrostomy) adjustment/replacement/removal (Resolved) Debility due to RSV complicated by COPD and underlying MS. Goal of rehab is druze of prior level of functional independence. Tolerating therapies thus far Plan: Physical therapy for gait and balance Occupational Therapy for ADLs PRN analgesics Continue Copaxone As needed aerosols PRN analgesics Bowel protocol PRN sleep aid. Slept poorly last night will change his mattress
[2018-03-30 19:11] VITALS: PULSE 85; RESP 18
[2018-03-30] MEDS: Ipratropium/Albuterol Sulfate 3 ML AMPUL.NEB INHALATION (19:11)
[2018-03-30] MEDS: carBAMazepine 200 MG Tablet PO (20:01)
[2018-03-30] MEDS: carBAMazepine 200 MG Tablet 100 MG PO (20:42)
[2018-03-30 22:00] VITALS: BP 143/73; PULSE 95; RESP 17; TEMP 36.4; O2SAT 95
--- NOTE | 2018-03-31 02:15 | NURSING ---
at 0120 DIE TURNER was making rounds and advised by this nurse to turn pt to protect the integrity of his sacral skin. Pt told DIE TURNER that he does not turn and that he sleeps on his back. This nurse had noted his rt heel was reddened last night and had heels elevated on pillow to prevent skin breakdown while assessing pt and alerted pt to my concern about his tail bone at that time. Pt made no reply. I told pt I would let him get to sleep on his back but would like to get him off that tail bone later. DIE TURNER reported that she entered the room and touched him on the rt shoulder. She asked pt if she could assist him in rolling to one side or the other. DIE TURNER reported to this nurse that pt refused to turn and stated he sleeps on his back. DIE TURNER repeated what pt said and that she did not turn pt, pt would remain on back although staff is concerned about skin integrity. At 0215 Pt found making some moaning noises and staff responded. Pt states that since DIE TURNER awakened him to move he was having pain in his rt arm. I checked pt MAR for any pain med and relayed to pt that no pain med PRN was available. Pt said he knew. This nurse provided reassurance that staff was trying to be helpful and what can this nurse do at this time to help. Pt said, Nothing. He had his eyes shut when talking to nurse. This nurse will continue to monitor pt. Moaning has stopped after nurse left room. .
--- NOTE | 2018-03-31 02:18 | PCA ---
120 am I went into patients room per nurse request. Touched his shoulder to wake him up and asked him if he was willing to roll to one side or the other? Patient stated that he does not roll, he sleeps on his back. I continued to say the nurse thinks it's in your best interest to turn to get you off your bottom, so it doesn't break down. Patient was silent. I emptied his urinal and parted ways.
--- NOTE | 2018-03-31 03:31 | NURSING ---
Pt quietly sleeping at this point. No new s/sx of distress or discomfort exhibited
[2018-03-31] MEDS: Budesonide Respules 0.5 MG/2 ML AMPUL.NEB. INHALATION (07:35)
[2018-03-31 07:38] VITALS: PULSE 82; RESP 16; O2SAT 91
[2018-03-31] MEDS: Ipratropium/Albuterol Sulfate 3 ML AMPUL.NEB INHALATION ×3 (07:38→15:10)
[2018-03-31] MEDS: Polyethylene Glycol 3350 17 GM PACKET GT (09:17)
[2018-03-31] MEDS: predniSONE 20 MG Tablet 40 MG PO (09:17)
[2018-03-31] MEDS: Vitamin B Comp W-C Capsule 1 CAP PO (09:18)
[2018-03-31] MEDS: DALFAMPRIDINE 10 MG TAB.ER.12H PO ×2 (09:18→20:29)
[2018-03-31] MEDS: amLODIPine 5 MG Tablet PO (09:19)
[2018-03-31] MEDS: Losartan Potassium 100 MG Tablet PO (09:19)
[2018-03-31] MEDS: GLATIRAMER ACETATE 40 MG/ML SQ (09:19)
[2018-03-31] MEDS: DULoxetine Hcl 60 MG Capsule PO (09:19)
[2018-03-31] MEDS: Enoxaparin 40 MG/0.4 ML Syringe SC (09:20)
[2018-03-31] MEDS: Calcium (Elemental) 500 MG Tablet PO (09:20)
[2018-03-31] MEDS: Pantoprazole Sodium 40 MG Tablet PO (09:20)
[2018-03-31] MEDS: carBAMazepine 200 MG Tablet 100 MG PO (09:22)
[2018-03-31 10:00] VITALS: BP 148/75; PULSE 88; RESP 18; TEMP 36.6; O2SAT 96
--- NOTE | 2018-03-31 10:18 | PCM.PN.NEU ---
Subjective: Had increase left arm pain, causing screaming, is present. He apparently did not sleep very well last night was turned to side and is a back sleeper, environmental technical officer is aware not to turn patient during the night per 's request. Tolerating therapies. No shortness of breath at current. - Physical Exam General: Alert, Oriented x3, Cooperative HEENT: Atraumatic, PERRLA, EOMI, Normocephalic Neck: Supple, No JVD, Negative Carotid Bruits Lungs: Clear to auscultation, Normal air movement Cardiovascular: Regular rate, No murmurs Abdomen: Bowel Sounds Present, Soft, Non Tender Extremities: No edema, Capillary Refill Less than 3 Seconds Skin: No rashes, No breakdown Musculoskeletal: No Tenderness to Palpation of Joints or Extremities Neurological: Cranial nerves II-XII grossly intact Psych/Mental Status: Normal Affect, Appropriate, Alert and oriented to time, place, person, mood and affect Vital Signs Temp Pulse Resp BP Pulse Ox 97.6 F L 82 16 143/73 H 91 03/30/18 22:00 03/31/18 07:38 03/31/18 07:38 03/30/18 22:00 03/31/18 07:38 Oxygen Flow Rate (L/min) 3.5 Oxygen Delivery Method Nasal Cannula Weight: 64.8 kg Body Mass Index (BMI) 21.1 Intake and Output for Last 24 Hours 03/29/18 03/30/18 03/31/18 23:59 23:59 23:59 Intake Total 240 / 240 1660 / 1660 120 / 120 Output Total 250 / 250 400 / 400 Balance -10 / -10 1260 / 1260 120 / 120 Active Medications Albuterol Sulfate (Ventolin Hfa (Sp)) 2 puff INHALATION Q4H PRN PRN Reason: COPD Albuterol/Ipratropium (Duoneb) 3 ml INHALATION Q4HWA.RT [facility] Last Admin: 03/31/18 07:38 Dose: 3 ml Amlodipine Besylate (Norvasc) 5 mg PO DAILY [facility] Last Admin: 03/31/18 09:19 Dose: 5 mg Bisacodyl (Dulcolax) 10 mg RECTAL .PRN X 1 PRN PRN Reason: Constipation Budesonide (Pulmicort Aerosol) 0.5 mg INHALATION DAILY.RT [facility] Last Admin: 03/31/18 07:35 Dose: 0.5 mg Calcium Carbonate (Os-Eulogio 500) 500 mg PO DAILY [facility] Last Admin: 03/31/18 09:20 Dose: 500 mg Carbamazepine (Tegretol) 50 mg PO DAILY PRN PRN Reason: PAIN Carbamazepine (Tegretol) 200 mg PO QHS@2030 [facility] Carbamazepine (Tegretol) 100 mg PO DAILY@0830 [facility] Cholecalciferol (Vitamin D) 5,000 unit PO DAILY [facility] Last Admin: 03/31/18 09:20 Dose: 5,000 unit Duloxetine HCl (Cymbalta) 60 mg PO DAILY [facility] Last Admin: 03/31/18 09:19 Dose: 60 mg Enoxaparin Sodium (Lovenox) 40 mg SC DAILY [facility] Last Admin: 03/31/18 09:20 Dose: 40 mg Glatiramer Acetate (Copaxone) 40 mg SQ MOWEFR [facility] Last Admin: 03/31/18 09:19 Dose: 40 mg Losartan Potassium (Cozaar) 100 mg PO DAILY [facility] Last Admin: 03/31/18 09:19 Dose: 100 mg Magnesium Hydroxide (Milk Of Magnesia) 30 ml PO .PRN X 1 PRN PRN Reason: Constipation Multivitamins (Allbee W/C Caplet, Thera B Comp/C) 1 capsule PO DAILY [facility] Last Admin: 03/31/18 09:18 Dose: 1 capsule Pantoprazole Sodium (Protonix) 40 mg PO DAILY [facility] Last Admin: 03/31/18 09:20 Dose: 40 mg Polyethylene Glycol (Miralax) 17 gm GT DAILY@0800 [facility] Last Admin: 03/31/18 09:17 Dose: 17 gm Prednisone () 40 mg PO DAILY@0800 [facility] Stop: 04/07/18 08:01 Last Admin: 03/31/18 09:17 Dose: 40 mg Senna/Docusate Sodium (Senokot-S, Rekha-Colace) 2 tablet PO HS [facility] Last Admin: 03/30/18 20:44 Dose: Not Given Medical Necessity - Tobacco Use Smoking Status: Former smoker Assessment/Plan All Active Problems (Last Reviewed 03/31/18 @ 09:53 by Maciel Salas MD) Acute respiratory failure (Acute) Empyema of right pleural space (Resolved) PEG (percutaneous endoscopic gastrostomy) adjustment/replacement/removal (Resolved) Debility due to RSV complicated by COPD and underlying MS. Goal of rehab is muslim of prior level of functional independence. Tolerating therapies thus far Plan: Physical therapy for gait and balance Occupational Therapy for ADLs PRN analgesics Continue Copaxone As needed aerosols PRN analgesics Bowel protocol PRN sleep aid. Slept poorly last night will change his mattress, and will not turn patient during the night.
[2018-03-31 11:10] VITALS: PULSE 83; RESP 18
[2018-03-31 20:24] VITALS: BP 120/70; PULSE 88; RESP 20; TEMP 37.2; O2SAT 88
[2018-03-31] MEDS: Senna/Docusate Sodium 1 Tablet 2 TABLET PO (20:28)
[2018-03-31] MEDS: carBAMazepine 200 MG Tablet PO (20:30)
[2018-03-31 21:01] VITALS: PULSE 94; O2SAT 93
[2018-03-31 22:00] VITALS: O2SAT 88
[2018-04-01 07:35] VITALS: PULSE 74; RESP 18; O2SAT 93
[2018-04-01] MEDS: Budesonide Respules 0.5 MG/2 ML AMPUL.NEB. INHALATION (07:35)
[2018-04-01] MEDS: Ipratropium/Albuterol Sulfate 3 ML AMPUL.NEB INHALATION ×3 (07:35→19:05)
[2018-04-01 08:15] VITALS: O2SAT 83
[2018-04-01] MEDS: DALFAMPRIDINE 10 MG TAB.ER.12H PO ×2 (08:18→20:29)
[2018-04-01] MEDS: DULoxetine Hcl 60 MG Capsule PO (08:19)
[2018-04-01] MEDS: Vitamin B Comp W-C Capsule 1 CAP PO (08:19)
[2018-04-01] MEDS: Calcium (Elemental) 500 MG Tablet PO (08:19)
[2018-04-01] MEDS: carBAMazepine 200 MG Tablet 100 MG PO (08:20)
[2018-04-01] MEDS: predniSONE 20 MG Tablet 40 MG PO (08:20)
[2018-04-01] MEDS: Losartan Potassium 100 MG Tablet PO (08:21)
[2018-04-01] MEDS: amLODIPine 5 MG Tablet PO (08:21)
[2018-04-01] MEDS: Enoxaparin 40 MG/0.4 ML Syringe SC (08:21)
[2018-04-01] MEDS: Pantoprazole Sodium 40 MG Tablet PO (08:22)
[2018-04-01] MEDS: Polyethylene Glycol 3350 17 GM PACKET GT (09:24)
[2018-04-01 09:33] VITALS: BP 144/88; PULSE 88; RESP 18; TEMP 36.7; O2SAT 92
[2018-04-01 11:00] VITALS: PULSE 78; RESP 18
--- NOTE | 2018-04-01 14:19 | PN.NEURO_ITS ---
Subjective: Patient seen, remains in droplet precautions. Denies any SOB, blurry vision, or headaches. Tolerating therapy. No issues with GI/. He does have a PEG tube which the states she uses for hydration and protein supplementation only. - Physical Exam General: Alert, Oriented x3, Cooperative HEENT: Atraumatic, PERRLA, EOMI, Normocephalic Neck: Supple, No JVD, Negative Carotid Bruits Lungs: Clear to auscultation, Normal air movement Cardiovascular: Regular rate, No murmurs Abdomen: Bowel Sounds Present, Soft, Non Tender Extremities: No edema, Capillary Refill Less than 3 Seconds Skin: No rashes, No breakdown Musculoskeletal: No Tenderness to Palpation of Joints or Extremities Neurological: Cranial nerves II-XII grossly intact Psych/Mental Status: Normal Affect, Appropriate, Alert and oriented to time, place, person, mood and affect Vital Signs Temp Pulse Resp BP Pulse Ox 98.9 F 88 18 144/88 H 83 03/31/18 20:24 04/01/18 09:33 04/01/18 09:33 04/01/18 09:33 04/01/18 08:15 Oxygen Flow Rate (L/min) 2 Oxygen Delivery Method Room Air Weight: 64.8 kg Body Mass Index (BMI) 21.1 Intake and Output for Last 24 Hours 03/30/18 03/31/18 04/01/18 23:59 23:59 23:59 Intake Total 2060 / 2060 300 / 300 840 / 840 Output Total 400 / 400 300 / 300 Balance 1660 / 1660 0 / 0 840 / 840 Active Medications Albuterol Sulfate (Ventolin Hfa (Sp)) 2 puff INHALATION Q4H PRN PRN Reason: COPD Albuterol/Ipratropium (Duoneb) 3 ml INHALATION Q4HWA.RT [facility] Last Admin: 04/01/18 07:35 Dose: 3 ml Amlodipine Besylate (Norvasc) 5 mg PO DAILY [facility] Last Admin: 04/01/18 08:21 Dose: 5 mg Bisacodyl (Dulcolax) 10 mg RECTAL .PRN X 1 PRN PRN Reason: Constipation Budesonide (Pulmicort Aerosol) 0.5 mg INHALATION DAILY.RT [facility] Last Admin: 04/01/18 07:35 Dose: 0.5 mg Calcium Carbonate (Os-Eulogio 500) 500 mg PO DAILY [facility] Last Admin: 04/01/18 08:19 Dose: 500 mg Carbamazepine (Tegretol) 50 mg PO DAILY PRN PRN Reason: PAIN Carbamazepine (Tegretol) 200 mg PO QHS@2030 [facility] Last Admin: 03/31/18 20:30 Dose: 200 mg Carbamazepine (Tegretol) 100 mg PO DAILY@0830 [facility] Last Admin: 04/01/18 08:20 Dose: 100 mg Cholecalciferol (Vitamin D) 5,000 unit PO DAILY [facility] Last Admin: 04/01/18 08:20 Dose: 5,000 unit Duloxetine HCl (Cymbalta) 60 mg PO DAILY [facility] Last Admin: 04/01/18 08:19 Dose: 60 mg Enoxaparin Sodium (Lovenox) 40 mg SC DAILY [facility] Last Admin: 04/01/18 08:21 Dose: 40 mg Glatiramer Acetate (Copaxone) 40 mg SQ MOWEFR [facility] Last Admin: 03/31/18 09:19 Dose: 40 mg Losartan Potassium (Cozaar) 100 mg PO DAILY [facility] Last Admin: 04/01/18 08:21 Dose: 100 mg Magnesium Hydroxide (Milk Of Magnesia) 30 ml PO .PRN X 1 PRN PRN Reason: Constipation Multivitamins (Allbee W/C Caplet, Thera B Comp/C) 1 capsule PO DAILY [facility] Last Admin: 04/01/18 08:19 Dose: 1 capsule Pantoprazole Sodium (Protonix) 40 mg PO DAILY [facility] Last Admin: 04/01/18 08:22 Dose: 40 mg Polyethylene Glycol (Miralax) 17 gm GT DAILY@0800 [facility] Last Admin: 04/01/18 09:24 Dose: 17 gm Prednisone () 40 mg PO DAILY@0800 [facility] Stop: 04/07/18 08:01 Last Admin: 04/01/18 08:20 Dose: 40 mg Senna/Docusate Sodium (Senokot-S, Rekha-Colace) 2 tablet PO HS [facility] Last Admin: 03/31/18 20:28 Dose: 2 tablet Medical Necessity - Tobacco Use Smoking Status: Former smoker Assessment/Plan All Active Problems (Last Reviewed 03/31/18 @ 09:53 by Maciel Salas MD) Acute respiratory failure (Acute) Empyema of right pleural space (Resolved) PEG (percutaneous endoscopic gastrostomy) adjustment/replacement/removal (Resolved) Debility due to RSV complicated by COPD and underlying MS. Goal of rehab is zoroastrian of prior level of functional independence. Tolerating therapies thus far Plan: Physical therapy for gait and balance Occupational Therapy for ADLs PRN analgesics Continue Copaxone As needed aerosols PRN analgesics Bowel protocol PRN sleep aid. Slept poorly last night will change his mattress, and will not turn patient during the night.
[2018-04-01 19:05] VITALS: PULSE 78; RESP 16
[2018-04-01] MEDS: carBAMazepine 200 MG Tablet PO (20:29)
[2018-04-01] MEDS: Senna/Docusate Sodium 1 Tablet 2 TABLET PO (20:29)
--- NOTE | 2018-04-01 20:40 | NURSING ---
pt assisted into bed with assist x2 stand pivot and hearing aids placed in bag next on bedside table next to bed. pt denies any pain or discomfort at this time. pt positioned comfortably. pt was administered hs medications at 2028 whole in [facility] with no issue. pt continues to deny any pain or discomfort. PEG tube auscultated for correct position and flushed with 60 cc sterile water at this time. SCDs in place and working. this nurse asked pt if he would like fresh gatorade placed in pitcher, pt denied. pt denied further needs at this time. pt requested that door be closed as far as possible. resting quietly with eyes closed.
[2018-04-01 20:55] VITALS: BP 117/68; PULSE 96; RESP 18; TEMP 36.8; O2SAT 99
--- NOTE | 2018-04-02 02:27 | NURSING ---
Reviewed and agree with LPNs fims and handoff
[2018-04-02 07:05] VITALS: PULSE 80; RESP 18; O2SAT 90
[2018-04-02] MEDS: Ipratropium/Albuterol Sulfate 3 ML AMPUL.NEB INHALATION ×4 (07:05→19:30)
[2018-04-02] MEDS: Budesonide Respules 0.5 MG/2 ML AMPUL.NEB. INHALATION (07:05)
[2018-04-02 08:00] VITALS: BP 142/86; PULSE 80; RESP 16; TEMP 36.4; O2SAT 92
[2018-04-02] MEDS: DALFAMPRIDINE 10 MG TAB.ER.12H PO ×2 (08:14→20:28)
[2018-04-02] MEDS: Pantoprazole Sodium 40 MG Tablet PO (08:15)
[2018-04-02] MEDS: Vitamin B Comp W-C Capsule 1 CAP PO (08:15)
[2018-04-02] MEDS: Calcium (Elemental) 500 MG Tablet PO (08:15)
[2018-04-02] MEDS: Losartan Potassium 100 MG Tablet PO (08:15)
[2018-04-02] MEDS: predniSONE 20 MG Tablet 40 MG PO (08:15)
[2018-04-02] MEDS: carBAMazepine 200 MG Tablet 100 MG PO (08:15)
[2018-04-02] MEDS: DULoxetine Hcl 60 MG Capsule PO (08:15)
[2018-04-02] MEDS: amLODIPine 5 MG Tablet PO (08:15)
[2018-04-02] MEDS: Polyethylene Glycol 3350 17 GM PACKET GT (08:16)
[2018-04-02] MEDS: Enoxaparin 40 MG/0.4 ML Syringe SC (08:16)
[2018-04-02] MEDS: GLATIRAMER ACETATE 40 MG/ML SQ (10:44)
[2018-04-02 11:30] VITALS: PULSE 100; RESP 20; O2SAT 90
[2018-04-02 15:20] VITALS: PULSE 95; RESP 24
[2018-04-02 19:35] VITALS: PULSE 92; RESP 20
[2018-04-02] MEDS: Senna/Docusate Sodium 1 Tablet 2 TABLET PO (20:28)
[2018-04-02] MEDS: carBAMazepine 200 MG Tablet PO (20:28)
[2018-04-02 22:00] VITALS: BP 124/68; PULSE 72; RESP 16; TEMP 36.7; O2SAT 93
--- NOTE | 2018-04-02 23:44 | NURSING ---
Reviewed and agree with LPNs fims and handoff
[2018-04-03 07:07] VITALS: PULSE 72; RESP 18; O2SAT 90
[2018-04-03] MEDS: Budesonide Respules 0.5 MG/2 ML AMPUL.NEB. INHALATION (07:07)
[2018-04-03] MEDS: Ipratropium/Albuterol Sulfate 3 ML AMPUL.NEB INHALATION ×4 (07:07→19:00)
[2018-04-03] MEDS: carBAMazepine 200 MG Tablet 100 MG PO (08:17)
[2018-04-03] MEDS: predniSONE 20 MG Tablet 40 MG PO (08:18)
[2018-04-03] MEDS: Calcium (Elemental) 500 MG Tablet PO (08:18)
[2018-04-03] MEDS: Losartan Potassium 100 MG Tablet PO (08:18)
[2018-04-03] MEDS: Enoxaparin 40 MG/0.4 ML Syringe SC (08:18)
[2018-04-03] MEDS: DALFAMPRIDINE 10 MG TAB.ER.12H PO ×2 (08:19→20:29)
[2018-04-03] MEDS: Vitamin B Comp W-C Capsule 1 CAP PO (08:19)
[2018-04-03] MEDS: Pantoprazole Sodium 40 MG Tablet PO (08:20)
[2018-04-03] MEDS: amLODIPine 5 MG Tablet PO (08:21)
[2018-04-03] MEDS: Polyethylene Glycol 3350 17 GM PACKET GT (08:27)
[2018-04-03] MEDS: DULoxetine Hcl 60 MG Capsule PO (08:29)
[2018-04-03 08:30] VITALS: BP 134/72; PULSE 78; RESP 18; TEMP 36.3; O2SAT 96
[2018-04-03 11:20] VITALS: PULSE 77; RESP 16
[2018-04-03 15:21] VITALS: PULSE 80; RESP 18
[2018-04-03 19:56] VITALS: BP 127/76; PULSE 100; RESP 16; TEMP 36.8; O2SAT 92
[2018-04-03] MEDS: carBAMazepine 200 MG Tablet PO (20:29)
[2018-04-03] MEDS: Senna/Docusate Sodium 1 Tablet 2 TABLET PO (20:30)
[2018-04-04 06:56] VITALS: PULSE 73; RESP 18; O2SAT 93
[2018-04-04] MEDS: Ipratropium/Albuterol Sulfate 3 ML AMPUL.NEB INHALATION ×3 (06:56→20:18)
[2018-04-04] MEDS: DALFAMPRIDINE 10 MG TAB.ER.12H PO ×2 (09:00→20:07)
[2018-04-04] MEDS: carBAMazepine 200 MG Tablet 100 MG PO (09:10)
[2018-04-04] MEDS: predniSONE 20 MG Tablet 40 MG PO (09:30)
[2018-04-04] MEDS: Polyethylene Glycol 3350 17 GM PACKET GT (09:30)
[2018-04-04 10:00] VITALS: RESP 20; O2SAT 98
[2018-04-04] MEDS: Vitamin B Comp W-C Capsule 1 CAP PO (10:00)
[2018-04-04] MEDS: Enoxaparin 40 MG/0.4 ML Syringe SC (10:00)
[2018-04-04] MEDS: amLODIPine 5 MG Tablet PO (10:00)
[2018-04-04] MEDS: Calcium (Elemental) 500 MG Tablet PO (10:00)
[2018-04-04] MEDS: Losartan Potassium 100 MG Tablet PO (10:00)
[2018-04-04] MEDS: DULoxetine Hcl 60 MG Capsule PO (10:00)
[2018-04-04] MEDS: Pantoprazole Sodium 40 MG Tablet PO (10:00)
[2018-04-04 11:10] VITALS: BP 151/89; PULSE 78; RESP 20; TEMP 36.6; O2SAT 98
[2018-04-04 20:00] VITALS: PULSE 85; RESP 18; O2SAT 93
[2018-04-04] MEDS: Senna/Docusate Sodium 1 Tablet 2 TABLET PO (20:07)
[2018-04-04] MEDS: carBAMazepine 200 MG Tablet PO (20:07)
--- NOTE | 2018-04-04 20:13 | NURSING ---
pt gave permission to give medication early
--- NOTE | 2018-04-04 20:13 | NURSING ---
pt declined to be turned or have feet elevated off the bed
[2018-04-04] MEDS: Budesonide Respules 0.5 MG/2 ML AMPUL.NEB. INHALATION (20:18)
[2018-04-04 20:19] VITALS: PULSE 80; RESP 18
--- NOTE | 2018-04-05 02:08 | NURSING ---
Reviewed and agree with LPPN documentation and FIMs charting.
[2018-04-05 07:33] VITALS: PULSE 65; RESP 16; O2SAT 92
[2018-04-05] MEDS: Ipratropium/Albuterol Sulfate 3 ML AMPUL.NEB INHALATION ×3 (07:33→19:41)
[2018-04-05] MEDS: Budesonide Respules 0.5 MG/2 ML AMPUL.NEB. INHALATION (07:33)
[2018-04-05] MEDS: DALFAMPRIDINE 10 MG TAB.ER.12H PO ×2 (08:45→20:43)
[2018-04-05] MEDS: Losartan Potassium 100 MG Tablet PO (08:45)
[2018-04-05] MEDS: Calcium (Elemental) 500 MG Tablet PO (08:45)
[2018-04-05] MEDS: Pantoprazole Sodium 40 MG Tablet PO (08:45)
[2018-04-05] MEDS: carBAMazepine 200 MG Tablet 100 MG PO (08:45)
[2018-04-05] MEDS: DULoxetine Hcl 60 MG Capsule PO (08:46)
[2018-04-05] MEDS: predniSONE 20 MG Tablet 40 MG PO (08:47)
[2018-04-05] MEDS: Enoxaparin 40 MG/0.4 ML Syringe SC (08:47)
[2018-04-05] MEDS: Vitamin B Comp W-C Capsule 1 CAP PO (08:47)
[2018-04-05] MEDS: amLODIPine 5 MG Tablet PO (08:48)
[2018-04-05] MEDS: GLATIRAMER ACETATE 40 MG/ML SQ (08:51)
[2018-04-05] MEDS: Polyethylene Glycol 3350 17 GM PACKET GT (09:15)
[2018-04-05 09:19] VITALS: BP 155/91; PULSE 81; RESP 18; TEMP 36.6; O2SAT 90
--- NOTE | 2018-04-05 09:50 | CASEMGMT ---
Team meeting held. Patient present as well as patient spouse, Johanne. Patient approved 16 Medicare days with a discharge on or by 04/14/18. Patient plans to discharge to home with spouse at time of discharge. Team recommending for patient to continue with care and re-team next week with an anticipated discharge on 04/14/18 to home with spouse. Patient to continue with further care and treatment on the Inpatient Rehab Unit until time of discharge. This social media strategist did provided Johanne with list of private duty aides as Johanne is voicing to maybe need more support within the home. Support given. Proposed discharge date: 04/14/18 PLAN: Discharge to home with spouse. YECENIA William
--- NOTE | 2018-04-05 11:45 | PN_ITS ---
Subjective: Patient is a 73-year-old gentleman with complicated past medical history including multiple sclerosis, recently admitted for RSV upper respiratory tract infection managed on the regular nursing floor in the main hospital and subsequently transferred to the inpatient rehab unit as a result of significant debility Objective: GENERAL: cooperative HEENT: Atraumatic; EYES; Anicteric, Normal Conjunctiva NECK; supple, normal thyroid, RESPIRATORY: Diminished to auscultation bilaterally, CARDIOVASCULAR: Regular S1 S2, no audible murmurs GI: soft, non-tender, normoactive bowel sounds, : No Renal angle tenderness; EXTREMITIES: No edema, no clubbing, no cyanosis. NEURO: Awake; no lateralizing signs. PSYCH; Normal affect Vitals/I&O's: Vital Signs Temp Pulse Resp BP Pulse Ox 97.9 F 81 18 155/91 H 90 04/05/18 09:19 04/05/18 09:19 04/05/18 09:19 04/05/18 09:19 04/05/18 09:19 Oxygen Flow Rate (L/min) 97 Oxygen Delivery Method Room Air Weight: 64.8 kg Body Mass Index (BMI) 21.1 Intake and Output for Last 24 Hours 04/03/18 04/04/18 04/05/18 23:59 23:59 23:59 Intake Total 940 / 940 120 / 120 Output Total 175 / 175 Balance 940 / 940 120 / 120 -175 / -175 Current Medications Albuterol Sulfate (Ventolin Hfa (Sp)) 2 puff INHALATION Q4H PRN PRN Reason: COPD Albuterol/Ipratropium (Duoneb) 3 ml INHALATION Q4HWA.RT [facility] Last Admin: 04/05/18 07:33 Dose: 3 ml Amlodipine Besylate (Norvasc) 5 mg PO DAILY [facility] Last Admin: 04/05/18 08:48 Dose: 5 mg Bisacodyl (Dulcolax) 10 mg RECTAL .PRN X 1 PRN PRN Reason: Constipation Budesonide (Pulmicort Aerosol) 0.5 mg INHALATION DAILY.RT [facility] Last Admin: 04/05/18 07:33 Dose: 0.5 mg Calcium Carbonate (Os-Eulogio 500) 500 mg PO DAILY [facility] Last Admin: 04/05/18 08:45 Dose: 500 mg Carbamazepine (Tegretol) 50 mg PO DAILY PRN PRN Reason: PAIN Carbamazepine (Tegretol) 200 mg PO QHS@2030 [facility] Last Admin: 04/04/18 20:07 Dose: 200 mg Carbamazepine (Tegretol) 100 mg PO DAILY@0830 [facility] Last Admin: 04/05/18 08:45 Dose: 100 mg Cholecalciferol (Vitamin D) 5,000 unit PO DAILY [facility] Last Admin: 04/05/18 08:45 Dose: 5,000 unit Duloxetine HCl (Cymbalta) 60 mg PO DAILY [facility] Last Admin: 04/05/18 08:46 Dose: 60 mg Enoxaparin Sodium (Lovenox) 40 mg SC DAILY [facility] Last Admin: 04/05/18 08:47 Dose: 40 mg Glatiramer Acetate (Copaxone) 40 mg SQ MOWEFR [facility] Last Admin: 04/05/18 08:51 Dose: 40 mg Losartan Potassium (Cozaar) 100 mg PO DAILY [facility] Last Admin: 04/05/18 08:45 Dose: 100 mg Magnesium Hydroxide (Milk Of Magnesia) 30 ml PO .PRN X 1 PRN PRN Reason: Constipation Multivitamins (Allbee W/C Caplet, Thera B Comp/C) 1 capsule PO DAILY [facility] Last Admin: 04/05/18 08:47 Dose: 1 capsule Pantoprazole Sodium (Protonix) 40 mg PO DAILY [facility] Last Admin: 04/05/18 08:45 Dose: 40 mg Polyethylene Glycol (Miralax) 17 gm GT DAILY@0800 [facility] Last Admin: 04/05/18 09:15 Dose: 17 gm Prednisone () 40 mg PO DAILY@0800 [facility] Stop: 04/07/18 08:01 Last Admin: 04/05/18 08:47 Dose: 40 mg Senna/Docusate Sodium (Senokot-S, Rekha-Colace) 2 tablet PO HS [facility] Last Admin: 04/04/18 20:07 Dose: 2 tablet Medical Necessity - Tobacco Use Smoking Status: Former smoker Assessment/Plan All Active Problems (Last Reviewed 03/31/18 @ 09:53 by Maciel Salas MD) Acute respiratory failure (Acute) Empyema of right pleural space (Resolved) PEG (percutaneous endoscopic gastrostomy) adjustment/replacement/removal (Resolved) Patient is a 73-year-old gentleman with complicated past medical history including multiple sclerosis, recently admitted for RSV upper respiratory tract infection managed on the regular nursing floor in the main hospital and subsequently transferred to the inpatient rehab unit as a result of significant debility 1. Physical debility following recent admission for upper respiratory tract infection with RSV 2. COPD with recent exacerbation patient was managed per protocol. 3. Multiple sclerosis patients on Copaxone did continue 4. Depression patient is on Cymbalta 5. Chronic severe protein calorie malnutrition status post PEG tube placement 6. Hypertension-blood pressure controlled, home medications continued with dose adjustment as needed 7. Gout 8. DVT prophylaxis SC Lovenox Active Medications Albuterol Sulfate (Ventolin Hfa (Sp)) 2 puff INHALATION Q4H PRN PRN Reason: COPD Albuterol/Ipratropium (Duoneb) 3 ml INHALATION Q4HWA.RT [facility] Last Admin: 04/05/18 07:33 Dose: 3 ml Amlodipine Besylate (Norvasc) 5 mg PO DAILY [facility] Last Admin: 04/05/18 08:48 Dose: 5 mg Bisacodyl (Dulcolax) 10 mg RECTAL .PRN X 1 PRN PRN Reason: Constipation Budesonide (Pulmicort Aerosol) 0.5 mg INHALATION DAILY.RT [facility] Last Admin: 04/05/18 07:33 Dose: 0.5 mg Calcium Carbonate (Os-Eulogio 500) 500 mg PO DAILY [facility] Last Admin: 04/05/18 08:45 Dose: 500 mg Carbamazepine (Tegretol) 50 mg PO DAILY PRN PRN Reason: PAIN Carbamazepine (Tegretol) 200 mg PO QHS@2030 [facility] Last Admin: 04/04/18 20:07 Dose: 200 mg Carbamazepine (Tegretol) 100 mg PO DAILY@0830 [facility] Last Admin: 04/05/18 08:45 Dose: 100 mg Cholecalciferol (Vitamin D) 5,000 unit PO DAILY [facility] Last Admin: 04/05/18 08:45 Dose: 5,000 unit Duloxetine HCl (Cymbalta) 60 mg PO DAILY [facility] Last Admin: 04/05/18 08:46 Dose: 60 mg Enoxaparin Sodium (Lovenox) 40 mg SC DAILY [facility] Last Admin: 04/05/18 08:47 Dose: 40 mg Glatiramer Acetate (Copaxone) 40 mg SQ MOWEFR [facility] Last Admin: 04/05/18 08:51 Dose: 40 mg Losartan Potassium (Cozaar) 100 mg PO DAILY [facility] Last Admin: 04/05/18 08:45 Dose: 100 mg Magnesium Hydroxide (Milk Of Magnesia) 30 ml PO .PRN X 1 PRN PRN Reason: Constipation Multivitamins (Allbee W/C Caplet, Thera B Comp/C) 1 capsule PO DAILY [facility] Last Admin: 04/05/18 08:47 Dose: 1 capsule Pantoprazole Sodium (Protonix) 40 mg PO DAILY [facility] Last Admin: 04/05/18 08:45 Dose: 40 mg Polyethylene Glycol (Miralax) 17 gm GT DAILY@0800 [facility] Last Admin: 04/05/18 09:15 Dose: 17 gm Prednisone () 40 mg PO DAILY@0800 [facility] Stop: 04/07/18 08:01 Last Admin: 04/05/18 08:47 Dose: 40 mg Senna/Docusate Sodium (Senokot-S, Rekha-Colace) 2 tablet PO [facility] Last Admin: 04/04/18 20:07 Dose: 2 tablet Code Visit Inpatient E&M: 96722 Subs Hosp L2
[2018-04-05 11:46] VITALS: O2SAT 92
--- NOTE | 2018-04-05 14:20 | PCM.PN.NEU ---
Subjective: Staffed in team meeting today. All questions were answered. With PT for transfers he is moderate to max assist, max assist for walking, with OT he is mod assist for upper body care and total assist for lower body care. The patient is a 73 year old M with PMH HTN, MS, BPH, COPD, H/'O cervical surgery (records not available) admitted to [facility] on 03/29/18 with debility s/p RSV infection, for > 3 hrs therapy daily, with a goal of returning home at or near his prior level of functional independence. Per ex- he was diagnosed with RRMS in [address] Campos from [facility], had gait instability initially when he was diagnosed with MS around 2009, then about 3 yrs later had ЮЛИЯ and double vision probably from description, had steroids in the past for relapse. Has been tried on Aubagio in the past, had some tolerance issues and at present is on Copaxone. Tolerating therapies well, fall precautions, further medical management per hospitalist recommendation. 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-), power 5/5 both UE and right LE, 4/5 left LE, has left LE ankle brace, denies any sensory loss, Reflexes + B/L B/S/T/K/A, gait deferred, mild ataxia B/L UE (chronic per Ex-) Psych/Mental Status: Normal Affect Vital Signs Temp Pulse Resp BP Pulse Ox 97.9 F 81 18 155/91 H 92 04/05/18 09:19 04/05/18 09:19 04/05/18 09:19 04/05/18 09:19 04/05/18 11:46 Oxygen Flow Rate (L/min) 97 Oxygen Delivery Method Room Air Weight: 64.8 kg Body Mass Index (BMI) 21.1 Intake and Output for Last 24 Hours 04/03/18 04/04/18 04/05/18 23:59 23:59 23:59 Intake Total 940 / 940 120 / 120 Output Total 175 / 175 Balance 940 / 940 120 / 120 -175 / -175 Medical Necessity - Tobacco Use Smoking Status: Former smoker Assessment/Plan All Active Problems (Last Reviewed 03/31/18 @ 09:53 by Maciel Salas MD) Acute respiratory failure (Acute) Empyema of right pleural space (Resolved) PEG (percutaneous endoscopic gastrostomy) adjustment/replacement/removal (Resolved) The patient is a 73 year old M with PMH HTN, MS, BPH, COPD, H/'O cervical surgery (records not available) admitted to [facility] on 03/29/18 with debility s/p RSV infection, for > 3 hrs therapy daily, with a goal of returning home at or near his prior level of functional independence. Per ex- he was diagnosed with RRMS in [address] Campos from [facility], had gait instability initially when he was diagnosed with MS around 2009, then about 3 yrs later had ЮЛИЯ and double vision probably from description, had steroids in the past for relapse. Has been tried on Aubagio in the past, had some tolerance issues and at present is on Copaxone. Tolerating therapies well, fall precautions, further medical management per hospitalist recommendation. Plan -PT for gait stability and balance -OT for ADLs -Analgesic PRN -Bowel protocol -HTN- on Amlodipine adn Losartan -MS- on Copaxone -Is on Tegretol for pain per Ex- -COPD- on albuterol and Budesonide. on Protonix for GI prophylaxis and Calcium -Depression- on Cymbalta -GI/DVT prophylaxis- on Protonix and Lovenox -Fall precautions -Further medical management per hospitalist recommendation -Follow up with PCP and Dr. Campos [facility] as outpatient.
--- NOTE | 2018-04-05 14:24 | PN.NEURO_ITS ---
Subjective: Staffed in team meeting today. All questions were answered. With PT for transfers he is moderate to max assist, max assist for walking, with OT he is mod assist for upper body care and total assist for lower body care. The patient is a 73 year old M with PMH HTN, MS, BPH, COPD, H/'O cervical surgery (records not available) admitted to [facility] on 03/29/18 with debility s/p RSV infection, for > 3 hrs therapy daily, with a goal of returning home at or near his prior level of functional independence. Per ex- he was diagnosed with RRMS in [address] Campos from [facility], had gait instability initially when he was diagnosed with MS around 2009, then about 3 yrs later had ЮЛИЯ and double vision probably from description, had steroids in the past for relapse. Has been tried on Aubagio in the past, had some tolerance issues and at present is on Copaxone. Tolerating therapies well, fall precautions, further medical management per hospitalist recommendation. 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-), power 5/5 both UE and right LE, 4/5 left LE, has left LE ankle brace, denies any sensory loss, Reflexes + B/L B/S/T/K/A, gait deferred, mild ataxia B/L UE (chronic per Ex-) Psych/Mental Status: Normal Affect Vital Signs Temp Pulse Resp BP Pulse Ox 97.9 F 81 18 155/91 H 92 04/05/18 09:19 04/05/18 09:19 04/05/18 09:19 04/05/18 09:19 04/05/18 11:46 Oxygen Flow Rate (L/min) 97 Oxygen Delivery Method Room Air Weight: 64.8 kg Body Mass Index (BMI) 21.1 Intake and Output for Last 24 Hours 04/03/18 04/04/18 04/05/18 23:59 23:59 23:59 Intake Total 940 / 940 120 / 120 Output Total 175 / 175 Balance 940 / 940 120 / 120 -175 / -175 Medical Necessity - Tobacco Use Smoking Status: Former smoker Assessment/Plan All Active Problems (Last Reviewed 03/31/18 @ 09:53 by Maciel Salas MD) Acute respiratory failure (Acute) Empyema of right pleural space (Resolved) PEG (percutaneous endoscopic gastrostomy) adjustment/replacement/removal (Resolved) The patient is a 73 year old M with PMH HTN, MS, BPH, COPD, H/'O cervical surgery (records not available) admitted to [facility] on 03/29/18 with debility s/p RSV infection, for > 3 hrs therapy daily, with a goal of returning home at or near his prior level of functional independence. Per ex- he was diagnosed with RRMS in [address] Campos from [facility], had gait instability initially when he was diagnosed with MS around 2009, then about 3 yrs later had ЮЛИЯ and double vision probably from description, had steroids in the past for relapse. Has been tried on Aubagio in the past, had some tolerance issues and at present is on Copaxone. Tolerating therapies well, fall precautions, further medical management per hospitalist recommendation. Plan -PT for gait stability and balance -OT for ADLs -Analgesic PRN -Bowel protocol -HTN- on Amlodipine adn Losartan -MS- on Copaxone -Is on Tegretol for pain per Ex- -COPD- on albuterol and Budesonide. on Protonix for GI prophylaxis and Calcium -Depression- on Cymbalta -GI/DVT prophylaxis- on Protonix and Lovenox -Fall precautions -Further medical management per hospitalist recommendation -Follow up with PCP and Dr. Campos [facility] as outpatient.
[2018-04-05 15:00] VITALS: PULSE 96; RESP 16; O2SAT 96
[2018-04-05 19:30] VITALS: PULSE 96; RESP 16; O2SAT 93
[2018-04-05 19:41] VITALS: PULSE 95; RESP 18
[2018-04-05] MEDS: carBAMazepine 200 MG Tablet PO (20:42)
[2018-04-05] MEDS: Senna/Docusate Sodium 1 Tablet 2 TABLET PO (20:42)
--- NOTE | 2018-04-06 05:13 | NURSING ---
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
[2018-04-06 06:44] VITALS: PULSE 67; RESP 16; O2SAT 94
[2018-04-06] MEDS: Ipratropium/Albuterol Sulfate 3 ML AMPUL.NEB INHALATION ×3 (06:44→14:51)
[2018-04-06] MEDS: Budesonide Respules 0.5 MG/2 ML AMPUL.NEB. INHALATION (06:44)
--- NOTE | 2018-04-06 06:52 | NURSING ---
respiratory in to give pt breathing tx and staff came into given pt his therapy schedule, stated this urinal is awful and i am asking my to bring in one from home. staff asked pt if he was wet and pt stated I'll just wait until i go to the br . staff went to empty urinal and left it at pts bedside until can bring in one from home. staff asked if pt wanted to get changed and pt denied again. rn made aware
[2018-04-06] MEDS: Pantoprazole Sodium 40 MG Tablet PO (08:05)
[2018-04-06] MEDS: Calcium (Elemental) 500 MG Tablet PO (08:05)
[2018-04-06] MEDS: Enoxaparin 40 MG/0.4 ML Syringe SC (08:06)
[2018-04-06] MEDS: Losartan Potassium 100 MG Tablet PO (08:06)
[2018-04-06] MEDS: Vitamin B Comp W-C Capsule 1 CAP PO (08:06)
[2018-04-06] MEDS: predniSONE 20 MG Tablet 40 MG PO (08:06)
[2018-04-06] MEDS: Polyethylene Glycol 3350 17 GM PACKET GT (08:06)
[2018-04-06] MEDS: DULoxetine Hcl 60 MG Capsule PO (08:06)
[2018-04-06] MEDS: carBAMazepine 200 MG Tablet 100 MG PO (08:06)
[2018-04-06] MEDS: DALFAMPRIDINE 10 MG TAB.ER.12H PO ×2 (08:06→20:23)
[2018-04-06] MEDS: amLODIPine 5 MG Tablet PO (08:06)
[2018-04-06 08:28] VITALS: BP 140/83; PULSE 85; RESP 20; TEMP 36.6; O2SAT 91
[2018-04-06 11:46] VITALS: PULSE 74; RESP 21
--- NOTE | 2018-04-06 13:07 | PN.NEURO_ITS ---
Subjective: No issues overnight. Care discussed with nursing staff. 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-), power 5/5 both UE and right LE, 4/5 left LE, has left LE ankle brace, denies any sensory loss, Reflexes + B/L B/S/T/K/A, gait deferred, mild ataxia B/L UE (chronic per Ex-) Psych/Mental Status: Normal Affect Vital Signs Temp Pulse Resp BP Pulse Ox 97.8 F 74 21 H 140/83 H 91 04/06/18 08:28 04/06/18 11:46 04/06/18 11:46 04/06/18 08:28 04/06/18 08:28 Oxygen Flow Rate (L/min) 97 Oxygen Delivery Method Room Air Weight: 64.8 kg Body Mass Index (BMI) 21.1 Intake and Output for Last 24 Hours 04/04/18 04/05/18 04/06/18 23:59 23:59 23:59 Intake Total 260 / 260 400 / 400 880 / 880 Output Total 175 / 175 Balance 260 / 260 225 / 225 880 / 880 Medical Necessity - Tobacco Use Smoking Status: Former smoker Assessment/Plan All Active Problems (Last Reviewed 03/31/18 @ 09:53 by Maciel Salas MD) Acute respiratory failure (Acute) Empyema of right pleural space (Resolved) PEG (percutaneous endoscopic gastrostomy) adjustment/replacement/removal (Resolved) The patient is a 73 year old M with PMH HTN, MS, BPH, COPD, H/'O cervical surgery (records not available) admitted to [facility] on 03/29/18 with debility s/p RSV infection, for > 3 hrs therapy daily, with a goal of returning home at or near his prior level of functional independence. Per ex- he was diagnosed with RRMS in [address] Campos from [facility], had gait instability initially when he was diagnosed with MS around 2009, then about 3 yrs later had ЮЛИЯ and double vision probably from description, had steroids in the past for relapse. Has been tried on Aubagio in the past, had some tolerance issues and at present is on Copaxone. Tolerating therapies well, fall precautions, further medical management per hospitalist recommendation. Plan -PT for gait stability and balance -OT for ADLs -Analgesic PRN -Bowel protocol -HTN- on Amlodipine adn Losartan -MS- on Copaxone -Is on Tegretol for pain per Ex- -COPD- on albuterol and Budesonide. on Protonix for GI prophylaxis and Calcium -Depression- on Cymbalta -GI/DVT prophylaxis- on Protonix and Lovenox -Fall precautions -Further medical management per hospitalist recommendation -Follow up with PCP and Dr. Campos [facility] as outpatient.
[2018-04-06 14:51] VITALS: PULSE 97; RESP 16
[2018-04-06 19:51] VITALS: BP 139/81; PULSE 101; RESP 16; TEMP 36.6; O2SAT 94
[2018-04-06] MEDS: carBAMazepine 200 MG Tablet PO (20:23)
[2018-04-06] MEDS: Senna/Docusate Sodium 1 Tablet 2 TABLET PO (20:23)
[2018-04-07 07:15] VITALS: PULSE 75; RESP 18; O2SAT 94
[2018-04-07 08:00] VITALS: BP 145/80; PULSE 81; RESP 20; TEMP 36.6; O2SAT 95
[2018-04-07] MEDS: carBAMazepine 200 MG Tablet 100 MG PO (08:31)
[2018-04-07] MEDS: predniSONE 20 MG Tablet 40 MG PO (08:40)
[2018-04-07] MEDS: amLODIPine 5 MG Tablet PO (08:40)
[2018-04-07] MEDS: Calcium (Elemental) 500 MG Tablet PO (08:40)
[2018-04-07] MEDS: Pantoprazole Sodium 40 MG Tablet PO (08:40)
[2018-04-07] MEDS: Vitamin B Comp W-C Capsule 1 CAP PO (08:40)
[2018-04-07] MEDS: Losartan Potassium 100 MG Tablet PO (08:40)
[2018-04-07] MEDS: DULoxetine Hcl 60 MG Capsule PO (08:40)
[2018-04-07] MEDS: DALFAMPRIDINE 10 MG TAB.ER.12H PO ×2 (08:41→20:36)
[2018-04-07] MEDS: Polyethylene Glycol 3350 17 GM PACKET GT (08:41)
[2018-04-07] MEDS: Enoxaparin 40 MG/0.4 ML Syringe SC (08:41)
[2018-04-07] MEDS: GLATIRAMER ACETATE 40 MG/ML SQ (09:48)
--- NOTE | 2018-04-07 12:00 | PN_ITS ---
Subjective: Seen eating lunch no new active issues. Objective: GENERAL: cooperative HEENT: Atraumatic; EYES; Anicteric, Normal Conjunctiva NECK; supple, normal thyroid, RESPIRATORY: Diminished to auscultation bilaterally, CARDIOVASCULAR: Regular S1 S2, no audible murmurs GI: soft, non-tender, normoactive bowel sounds, : No Renal angle tenderness; EXTREMITIES: No edema, no clubbing, no cyanosis. NEURO: Awake; no lateralizing signs. PSYCH; Normal affect Vitals/I&O's: Vital Signs Temp Pulse Resp BP Pulse Ox 97.9 F 81 20 H 145/80 H 95 04/07/18 08:00 04/07/18 08:00 04/07/18 08:00 04/07/18 08:00 04/07/18 08:00 Oxygen Flow Rate (L/min) 97 Oxygen Delivery Method Room Air Weight: 64.8 kg Body Mass Index (BMI) 21.1 Intake and Output for Last 24 Hours 04/05/18 04/06/18 04/07/18 23:59 23:59 23:59 Intake Total 400 / 400 1660 / 1660 440 / 440 Output Total 175 / 175 Balance 225 / 225 1660 / 1660 440 / 440 Current Medications Albuterol Sulfate (Ventolin Hfa (Sp)) 2 puff INHALATION Q4H PRN PRN Reason: COPD Albuterol/Ipratropium (Duoneb) 3 ml INHALATION Q4HWA.RT [facility] Last Admin: 04/06/18 20:29 Dose: Not Given Amlodipine Besylate (Norvasc) 5 mg PO DAILY [facility] Last Admin: 04/07/18 08:40 Dose: 5 mg Bisacodyl (Dulcolax) 10 mg RECTAL .PRN X 1 PRN PRN Reason: Constipation Budesonide (Pulmicort Aerosol) 0.5 mg INHALATION DAILY.RT [facility] Last Admin: 04/06/18 06:44 Dose: 0.5 mg Calcium Carbonate (Os-Eulogio 500) 500 mg PO DAILY [facility] Last Admin: 04/07/18 08:40 Dose: 500 mg Carbamazepine (Tegretol) 50 mg PO DAILY PRN PRN Reason: PAIN Carbamazepine (Tegretol) 200 mg PO QHS@2030 [facility] Last Admin: 04/06/18 20:23 Dose: 200 mg Carbamazepine (Tegretol) 100 mg PO DAILY@0830 [facility] Last Admin: 04/07/18 08:31 Dose: 100 mg Cholecalciferol (Vitamin D) 5,000 unit PO DAILY [facility] Last Admin: 04/07/18 08:40 Dose: 5,000 unit Duloxetine HCl (Cymbalta) 60 mg PO DAILY [facility] Last Admin: 04/07/18 08:40 Dose: 60 mg Enoxaparin Sodium (Lovenox) 40 mg SC DAILY [facility] Last Admin: 04/07/18 08:41 Dose: 40 mg Glatiramer Acetate (Copaxone) 40 mg SQ MOWEFR [facility] Last Admin: 04/07/18 09:48 Dose: 40 mg Losartan Potassium (Cozaar) 100 mg PO DAILY [facility] Last Admin: 04/07/18 08:40 Dose: 100 mg Magnesium Hydroxide (Milk Of Magnesia) 30 ml PO .PRN X 1 PRN PRN Reason: Constipation Multivitamins (Allbee W/C Caplet, Thera B Comp/C) 1 capsule PO DAILY [facility] Last Admin: 04/07/18 08:40 Dose: 1 capsule Pantoprazole Sodium (Protonix) 40 mg PO DAILY [facility] Last Admin: 04/07/18 08:40 Dose: 40 mg Polyethylene Glycol (Miralax) 17 gm GT DAILY@0800 [facility] Last Admin: 04/07/18 08:41 Dose: 17 gm Senna/Docusate Sodium (Senokot-S, Rekha-Colace) 2 tablet PO HS [facility] Last Admin: 04/06/18 20:23 Dose: 2 tablet Medical Necessity - Tobacco Use Smoking Status: Former smoker Assessment/Plan All Active Problems (Last Reviewed 03/31/18 @ 09:53 by Maciel Salas MD) Acute respiratory failure (Acute) Empyema of right pleural space (Resolved) PEG (percutaneous endoscopic gastrostomy) adjustment/replacement/removal (Resolved) Patient is a 73-year-old gentleman with complicated past medical history including multiple sclerosis, recently admitted for RSV upper respiratory tract infection managed on the regular nursing floor in the [facility] and subsequently transferred to the inpatient rehab unit as a result of significant debility 1. Physical debility following recent admission for upper respiratory tract infection with RSV 2. COPD with recent exacerbation patient was managed per protocol. 3. Multiple sclerosis patients on Copaxone did continue 4. Depression patient is on Cymbalta 5. Chronic severe protein calorie malnutrition status post PEG tube placement 6. Hypertension-blood pressure controlled, home medications continued with dose adjustment as needed 7. Gout 8. DVT prophylaxis SC Lovenox Code Visit Inpatient E&M: 07030 Subs Hosp L2
[2018-04-07 18:50] VITALS: PULSE 95; RESP 18
[2018-04-07] MEDS: Ipratropium/Albuterol Sulfate 3 ML AMPUL.NEB INHALATION (18:54)
[2018-04-07 20:23] VITALS: BP 116/70; PULSE 92; RESP 16; TEMP 36.8; O2SAT 90
[2018-04-07] MEDS: Senna/Docusate Sodium 1 Tablet 2 TABLET PO (20:36)
[2018-04-07] MEDS: carBAMazepine 200 MG Tablet PO (20:37)
[2018-04-07 22:00] VITALS: O2SAT 90
[2018-04-08 07:16] VITALS: PULSE 80; RESP 18; O2SAT 92
[2018-04-08] MEDS: Ipratropium/Albuterol Sulfate 3 ML AMPUL.NEB INHALATION ×3 (07:16→19:23)
[2018-04-08] MEDS: Budesonide Respules 0.5 MG/2 ML AMPUL.NEB. INHALATION (07:16)
[2018-04-08] MEDS: Polyethylene Glycol 3350 17 GM PACKET GT (08:30)
[2018-04-08] MEDS: Enoxaparin 40 MG/0.4 ML Syringe SC (08:30)
[2018-04-08] MEDS: carBAMazepine 200 MG Tablet 100 MG PO (08:30)
[2018-04-08 09:06] VITALS: BP 134/76; PULSE 79; RESP 16; TEMP 36.7; O2SAT 93
[2018-04-08] MEDS: DALFAMPRIDINE 10 MG TAB.ER.12H PO ×2 (09:09→20:28)
[2018-04-08] MEDS: Vitamin B Comp W-C Capsule 1 CAP PO (09:10)
[2018-04-08] MEDS: DULoxetine Hcl 60 MG Capsule PO (09:11)
[2018-04-08] MEDS: Losartan Potassium 100 MG Tablet PO (09:11)
[2018-04-08] MEDS: Calcium (Elemental) 500 MG Tablet PO (09:12)
[2018-04-08] MEDS: amLODIPine 5 MG Tablet PO (09:12)
[2018-04-08] MEDS: Pantoprazole Sodium 40 MG Tablet PO (09:12)
--- NOTE | 2018-04-08 11:00 | PN.NEURO_ITS ---
Subjective: No issues overnight. Care discussed with the nursing staff. 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-), power 5/5 both UE and right LE, 4/5 left LE, has left LE ankle brace, denies any sensory loss, Reflexes + B/L B/S/T/K/A, gait deferred, mild ataxia B/L UE (chronic per Ex-) Psych/Mental Status: Normal Affect Vital Signs Temp Pulse Resp BP Pulse Ox 98.0 F 79 16 134/76 H 93 04/08/18 09:06 04/08/18 09:06 04/08/18 09:06 04/08/18 09:06 04/08/18 09:06 Oxygen Flow Rate (L/min) 97 Oxygen Delivery Method Room Air Weight: 64.8 kg Body Mass Index (BMI) 21.1 Intake and Output for Last 24 Hours 04/06/18 04/07/18 04/08/18 23:59 23:59 23:59 Intake Total 1660 / 1660 980 / 980 240 / 240 Balance 1660 / 1660 980 / 980 240 / 240 Medical Necessity - Tobacco Use Smoking Status: Former smoker Assessment/Plan All Active Problems (Last Reviewed 03/31/18 @ 09:53 by Maciel Salas MD) Acute respiratory failure (Acute) Empyema of right pleural space (Resolved) PEG (percutaneous endoscopic gastrostomy) adjustment/replacement/removal (Resolved) The patient is a 73 year old M with PMH HTN, MS, BPH, COPD, H/'O cervical surgery (records not available) admitted to [facility] on 03/29/18 with debility s/p RSV infection, for > 3 hrs therapy daily, with a goal of returning home at or near his prior level of functional independence. Per ex- he was diagnosed with RRMS in [address] Campos from [facility], had gait instability initially when he was diagnosed with MS around 2009, then about 3 yrs later had ЮЛИЯ and double vision probably from description, had steroids in the past for relapse. Has been tried on Aubagio in the past, had some tolerance issues and at present is on Copaxone. Tolerating therapies well, fall precautions, further medical management per hospitalist recommendation. Plan -PT for gait stability and balance -OT for ADLs -Analgesic PRN -Bowel protocol -HTN- on Amlodipine and Losartan -MS- on Copaxone -Is on Tegretol for pain per Ex- and it has helped -COPD- on albuterol and Budesonide. on Protonix for GI prophylaxis and Calcium -Depression- on Cymbalta -GI/DVT prophylaxis- on Protonix and Lovenox -Fall precautions -Further medical management per hospitalist recommendation -Follow up with PCP and Dr. Campos [facility] as outpatient.
[2018-04-08 14:50] VITALS: PULSE 88; RESP 18
[2018-04-08 19:23] VITALS: PULSE 93; RESP 18
[2018-04-08] MEDS: carBAMazepine 200 MG Tablet PO (20:28)
[2018-04-08] MEDS: Senna/Docusate Sodium 1 Tablet 2 TABLET PO (20:28)
[2018-04-08 21:11] VITALS: BP 121/72; PULSE 85; RESP 16; TEMP 36.6; O2SAT 92
--- NOTE | 2018-04-09 04:26 | NURSING ---
Reviewed and agree with ROUTER OPERATOR [employer]IAL documentation and FIMs charting.
[2018-04-09 06:40] VITALS: PULSE 65; RESP 18
[2018-04-09] MEDS: Ipratropium/Albuterol Sulfate 3 ML AMPUL.NEB INHALATION ×3 (06:40→20:40)
[2018-04-09 08:30] VITALS: BP 145/82; PULSE 76; RESP 20; TEMP 36.6; O2SAT 95
[2018-04-09] MEDS: Enoxaparin 40 MG/0.4 ML Syringe SC (08:32)
[2018-04-09] MEDS: carBAMazepine 200 MG Tablet 100 MG PO (08:32)
[2018-04-09] MEDS: Polyethylene Glycol 3350 17 GM PACKET GT (08:32)
[2018-04-09] MEDS: Vitamin B Comp W-C Capsule 1 CAP PO (09:59)
[2018-04-09] MEDS: Calcium (Elemental) 500 MG Tablet PO (09:59)
[2018-04-09] MEDS: Losartan Potassium 100 MG Tablet PO (09:59)
[2018-04-09] MEDS: DULoxetine Hcl 60 MG Capsule PO (09:59)
[2018-04-09] MEDS: amLODIPine 5 MG Tablet PO (09:59)
[2018-04-09] MEDS: Pantoprazole Sodium 40 MG Tablet PO (10:00)
[2018-04-09] MEDS: DALFAMPRIDINE 10 MG TAB.ER.12H PO ×2 (10:00→20:30)
[2018-04-09] MEDS: GLATIRAMER ACETATE 40 MG/ML SQ (10:00)
--- NOTE | 2018-04-09 12:32 | PCM.PN.NEU ---
Subjective: No issues overnight. Care discussed with the nursing staff. 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-), power 5/5 both UE and right LE, 4/5 left LE, has left LE ankle brace, denies any sensory loss, Reflexes + B/L B/S/T/K/A, gait deferred, mild ataxia B/L UE (chronic per Ex-) Psych/Mental Status: Normal Affect Vital Signs Temp Pulse Resp BP Pulse Ox 97.8 F 76 20 H 145/82 H 95 04/09/18 08:30 04/09/18 08:30 04/09/18 08:30 04/09/18 08:30 04/09/18 08:30 Oxygen Flow Rate (L/min) 97 Oxygen Delivery Method Room Air Weight: 64.8 kg Body Mass Index (BMI) 21.1 Intake and Output for Last 24 Hours 04/07/18 04/08/18 04/09/18 23:59 23:59 23:59 Intake Total 980 / 980 500 / 500 200 / 200 Output Total 0 / 0 Balance 980 / 980 500 / 500 200 / 200 Medical Necessity - Tobacco Use Smoking Status: Former smoker Assessment/Plan All Active Problems (Last Reviewed 03/31/18 @ 09:53 by Maciel Salas MD) Acute respiratory failure (Acute) Empyema of right pleural space (Resolved) PEG (percutaneous endoscopic gastrostomy) adjustment/replacement/removal (Resolved) The patient is a 73 year old M with PMH HTN, MS, BPH, COPD, H/'O cervical surgery (records not available) admitted to [facility] on 03/29/18 with debility s/p RSV infection, for > 3 hrs therapy daily, with a goal of returning home at or near his prior level of functional independence. Per ex- he was diagnosed with RRMS in [address] Campos from [facility], had gait instability initially when he was diagnosed with MS around 2009, then about 3 yrs later had ЮЛИЯ and double vision probably from description, had steroids in the past for relapse. Has been tried on Aubagio in the past, had some tolerance issues and at present is on Copaxone. Tolerating therapies well, fall precautions, further medical management per hospitalist recommendation. Plan -PT for gait stability and balance -OT for ADLs -Analgesic PRN -Bowel protocol -HTN- on Amlodipine and Losartan -MS- on Copaxone and ampyra -Is on Tegretol for pain per Ex- and it has helped -COPD- albuterol and Budesonide. on Protonix for GI prophylaxis and Calcium -Depression- on Cymbalta -GI/DVT prophylaxis- on Protonix and Lovenox -Fall precautions -Further medical management per hospitalist recommendation -Follow up with PCP and Dr. Campos [facility] as outpatient.
--- NOTE | 2018-04-09 13:04 | PN_ITS ---
Subjective: Patient seen currently undergoing physical therapy. Objective: GENERAL: cooperative HEENT: Atraumatic; EYES; Anicteric, Normal Conjunctiva NECK; supple, normal thyroid, RESPIRATORY: Diminished to auscultation bilaterally, CARDIOVASCULAR: Regular S1 S2, no audible murmurs GI: soft, non-tender, normoactive bowel sounds, : No Renal angle tenderness; EXTREMITIES: No edema, no clubbing, no cyanosis. NEURO: Awake; no lateralizing signs. PSYCH; Normal affect Vitals/I&O's: Vital Signs Temp Pulse Resp BP Pulse Ox 97.8 F 76 20 H 145/82 H 95 04/09/18 08:30 04/09/18 08:30 04/09/18 08:30 04/09/18 08:30 04/09/18 08:30 Oxygen Flow Rate (L/min) 97 Oxygen Delivery Method Room Air Weight: 64.8 kg Body Mass Index (BMI) 21.1 Intake and Output for Last 24 Hours 04/07/18 04/08/18 04/09/18 23:59 23:59 23:59 Intake Total 980 / 980 500 / 500 200 / 200 Output Total 0 / 0 Balance 980 / 980 500 / 500 200 / 200 Current Medications Albuterol Sulfate (Ventolin Hfa (Sp)) 2 puff INHALATION Q4H PRN PRN Reason: COPD Albuterol/Ipratropium (Duoneb) 3 ml INHALATION Q4HWA.RT [facility] Last Admin: 04/09/18 06:40 Dose: 3 ml Amlodipine Besylate (Norvasc) 5 mg PO DAILY [facility] Last Admin: 04/09/18 09:59 Dose: 5 mg Bisacodyl (Dulcolax) 10 mg RECTAL .PRN X 1 PRN PRN Reason: Constipation Budesonide (Pulmicort Aerosol) 0.5 mg INHALATION DAILY.RT [facility] Last Admin: 04/08/18 07:16 Dose: 0.5 mg Calcium Carbonate (Os-Eulogio 500) 500 mg PO DAILY [facility] Last Admin: 04/09/18 09:59 Dose: 500 mg Carbamazepine (Tegretol) 50 mg PO DAILY PRN PRN Reason: PAIN Carbamazepine (Tegretol) 200 mg PO QHS@2030 [facility] Last Admin: 04/08/18 20:28 Dose: 200 mg Carbamazepine (Tegretol) 100 mg PO DAILY@0830 [facility] Last Admin: 04/09/18 08:32 Dose: 100 mg Cholecalciferol (Vitamin D) 5,000 unit PO DAILY [facility] Last Admin: 04/09/18 10:00 Dose: 5,000 unit Duloxetine HCl (Cymbalta) 60 mg PO DAILY [facility] Last Admin: 04/09/18 09:59 Dose: 60 mg Enoxaparin Sodium (Lovenox) 40 mg SC DAILY [facility] Last Admin: 04/09/18 08:32 Dose: 40 mg Glatiramer Acetate (Copaxone) 40 mg SQ MOWEFR [facility] Last Admin: 04/09/18 10:00 Dose: 40 mg Losartan Potassium (Cozaar) 100 mg PO DAILY [facility] Last Admin: 04/09/18 09:59 Dose: 100 mg Magnesium Hydroxide (Milk Of Magnesia) 30 ml PO .PRN X 1 PRN PRN Reason: Constipation Multivitamins (Allbee W/C Caplet, Thera B Comp/C) 1 capsule PO DAILY [facility] Last Admin: 04/09/18 09:59 Dose: 1 capsule Pantoprazole Sodium (Protonix) 40 mg PO DAILY [facility] Last Admin: 04/09/18 10:00 Dose: 40 mg Polyethylene Glycol (Miralax) 17 gm GT DAILY@0800 [facility] Last Admin: 04/09/18 08:32 Dose: 17 gm Senna/Docusate Sodium (Senokot-S, Rekha-Colace) 2 tablet PO HS [facility] Last Admin: 04/08/18 20:28 Dose: 2 tablet Medical Necessity - Tobacco Use Smoking Status: Former smoker Assessment/Plan All Active Problems (Last Reviewed 03/31/18 @ 09:53 by Maciel Salas MD) Acute respiratory failure (Acute) Empyema of right pleural space (Resolved) PEG (percutaneous endoscopic gastrostomy) adjustment/replacement/removal (Resolved) Patient is a 73-year-old gentleman with complicated past medical history including multiple sclerosis, recently admitted for RSV upper respiratory tract infection managed on the regular nursing floor in the main hospital and subsequently transferred to the inpatient rehab unit as a result of significant debility 1. Physical debility following recent admission for upper respiratory tract infection with RSV 2. COPD with recent exacerbation patient was managed per protocol. 3. Multiple sclerosis patients on Copaxone did continue 4. Depression patient is on Cymbalta 5. Chronic severe protein calorie malnutrition status post PEG tube placement 6. Hypertension-blood pressure controlled, home medications continued with dose adjustment as needed 7. Gout 8. DVT prophylaxis SC Lovenox Code Visit Inpatient E&M: 79015 Subs Hosp L2
[2018-04-09 15:26] VITALS: PULSE 94; RESP 20; O2SAT 96
[2018-04-09] MEDS: Senna/Docusate Sodium 1 Tablet 2 TABLET PO (20:30)
[2018-04-09] MEDS: carBAMazepine 200 MG Tablet PO (20:30)
[2018-04-09 20:40] VITALS: PULSE 78; RESP 18
[2018-04-09 20:51] VITALS: BP 102/64; PULSE 89; RESP 18; TEMP 37; O2SAT 95
--- NOTE | 2018-04-10 00:04 | NURSING ---
Reviewed and agree with LPNs fims and handoff
[2018-04-10 06:35] VITALS: PULSE 83; RESP 17; O2SAT 91
[2018-04-10] MEDS: Budesonide Respules 0.5 MG/2 ML AMPUL.NEB. INHALATION (06:35)
[2018-04-10] MEDS: Ipratropium/Albuterol Sulfate 3 ML AMPUL.NEB INHALATION ×3 (06:35→15:41)
[2018-04-10] MEDS: Polyethylene Glycol 3350 17 GM PACKET GT (08:26)
[2018-04-10] MEDS: Enoxaparin 40 MG/0.4 ML Syringe SC (08:28)
[2018-04-10] MEDS: carBAMazepine 200 MG Tablet 100 MG PO (08:28)
[2018-04-10 08:31] VITALS: BP 137/83; PULSE 77; RESP 16; TEMP 36.8; O2SAT 92
[2018-04-10] MEDS: DULoxetine Hcl 60 MG Capsule PO (09:12)
[2018-04-10] MEDS: amLODIPine 5 MG Tablet PO (09:12)
[2018-04-10] MEDS: Losartan Potassium 100 MG Tablet PO (09:12)
[2018-04-10] MEDS: Calcium (Elemental) 500 MG Tablet PO (09:13)
[2018-04-10] MEDS: DALFAMPRIDINE 10 MG TAB.ER.12H PO ×2 (09:13→20:30)
[2018-04-10] MEDS: Pantoprazole Sodium 40 MG Tablet PO (09:13)
[2018-04-10] MEDS: Vitamin B Comp W-C Capsule 1 CAP PO (09:13)
[2018-04-10 12:01] VITALS: PULSE 98; RESP 16
[2018-04-10 15:41] VITALS: PULSE 97; RESP 19
--- NOTE | 2018-04-10 17:29 | NURSING ---
Pt refused to stand up and reposition while in recliner when offered. States he is fine.
[2018-04-10] MEDS: Senna/Docusate Sodium 1 Tablet 2 TABLET PO (20:30)
[2018-04-10] MEDS: carBAMazepine 200 MG Tablet PO (20:30)
[2018-04-10 20:42] VITALS: BP 126/74; PULSE 80; RESP 18; TEMP 36.7; O2SAT 93
--- NOTE | 2018-04-11 05:48 | NURSING ---
Reviewed and agree with LPNs fims and handoff
[2018-04-11 06:37] VITALS: PULSE 78; RESP 18; O2SAT 95
[2018-04-11] MEDS: Ipratropium/Albuterol Sulfate 3 ML AMPUL.NEB INHALATION ×2 (06:37→15:02)
[2018-04-11] MEDS: Budesonide Respules 0.5 MG/2 ML AMPUL.NEB. INHALATION (06:37)
[2018-04-11] MEDS: carBAMazepine 200 MG Tablet 100 MG PO (08:35)
--- NOTE | 2018-04-11 09:38 | PN_ITS ---
Subjective: Patient seen. PT has gone as expected. Case was discussed with the who was in the room with plans for patient to be discharged home on 06/12/2018 Objective: GENERAL: cooperative HEENT: Atraumatic; EYES; Anicteric, Normal Conjunctiva NECK; supple, normal thyroid, RESPIRATORY: Diminished to auscultation bilaterally, CARDIOVASCULAR: Regular S1 S2, no audible murmurs GI: soft, non-tender, normoactive bowel sounds, : No Renal angle tenderness; EXTREMITIES: No edema, no clubbing, no cyanosis. NEURO: Awake; no lateralizing signs. PSYCH; Normal affect Vitals/I&O's: Vital Signs Temp Pulse Resp BP Pulse Ox 98.1 F 78 18 126/74 H 95 04/10/18 20:42 04/11/18 06:37 04/11/18 06:37 04/10/18 20:42 04/11/18 06:37 Oxygen Flow Rate (L/min) 97 Oxygen Delivery Method Room Air Weight: 64.8 kg Body Mass Index (BMI) 21.1 Intake and Output for Last 24 Hours 04/09/18 04/10/18 04/11/18 23:59 23:59 23:59 Intake Total 590 / 590 260 / 260 Balance 590 / 590 260 / 260 Current Medications Albuterol Sulfate (Ventolin Hfa (Sp)) 2 puff INHALATION Q4H PRN PRN Reason: COPD Albuterol/Ipratropium (Duoneb) 3 ml INHALATION Q4HWA.RT [facility] Last Admin: 04/11/18 06:37 Dose: 3 ml Amlodipine Besylate (Norvasc) 5 mg PO DAILY [facility] Last Admin: 04/10/18 09:12 Dose: 5 mg Bisacodyl (Dulcolax) 10 mg RECTAL .PRN X 1 PRN PRN Reason: Constipation Budesonide (Pulmicort Aerosol) 0.5 mg INHALATION DAILY.RT [facility] Last Admin: 04/11/18 06:37 Dose: 0.5 mg Calcium Carbonate (Os-Eulogio 500) 500 mg PO DAILY [facility] Last Admin: 04/10/18 09:13 Dose: 500 mg Carbamazepine (Tegretol) 50 mg PO DAILY PRN PRN Reason: PAIN Carbamazepine (Tegretol) 200 mg PO QHS@2030 [facility] Last Admin: 04/10/18 20:30 Dose: 200 mg Carbamazepine (Tegretol) 100 mg PO DAILY@0830 [facility] Last Admin: 04/11/18 08:35 Dose: 100 mg Cholecalciferol (Vitamin D) 5,000 unit PO DAILY [facility] Last Admin: 04/10/18 09:13 Dose: 5,000 unit Duloxetine HCl (Cymbalta) 60 mg PO DAILY [facility] Last Admin: 04/10/18 09:12 Dose: 60 mg Enoxaparin Sodium (Lovenox) 40 mg SC DAILY [facility] Last Admin: 04/10/18 08:28 Dose: 40 mg Glatiramer Acetate (Copaxone) 40 mg SQ MOWEFR [facility] Last Admin: 04/09/18 10:00 Dose: 40 mg Losartan Potassium (Cozaar) 100 mg PO DAILY [facility] Last Admin: 04/10/18 09:12 Dose: 100 mg Magnesium Hydroxide (Milk Of Magnesia) 30 ml PO .PRN X 1 PRN PRN Reason: Constipation Multivitamins (Allbee W/C Caplet, Thera B Comp/C) 1 capsule PO DAILY [facility] Last Admin: 04/10/18 09:13 Dose: 1 capsule Pantoprazole Sodium (Protonix) 40 mg PO DAILY [facility] Last Admin: 04/10/18 09:13 Dose: 40 mg Polyethylene Glycol (Miralax) 17 gm GT DAILY@0800 [facility] Last Admin: 04/10/18 08:26 Dose: 17 gm Senna/Docusate Sodium (Senokot-S, Rekha-Colace) 2 tablet PO HS [facility] Last Admin: 04/10/18 20:30 Dose: 2 tablet Medical Necessity - Tobacco Use Smoking Status: Former smoker Assessment/Plan All Active Problems (Last Reviewed 03/31/18 @ 09:53 by Maciel Salas MD) Acute respiratory failure (Acute) Empyema of right pleural space (Resolved) PEG (percutaneous endoscopic gastrostomy) adjustment/replacement/removal (Resolved) Patient is a 73-year-old gentleman with complicated past medical history including multiple sclerosis, recently admitted for RSV upper respiratory tract infection managed on the regular nursing floor in the [facility] and subsequently transferred to the inpatient rehab unit as a result of significant debility 1. Physical debility following recent admission for upper respiratory tract infection with RSV 2. COPD with recent exacerbation patient was managed per protocol. 3. Multiple sclerosis patients on Copaxone did continue 4. Depression patient is on Cymbalta 5. Chronic severe protein calorie malnutrition status post PEG tube placement 6. Hypertension-blood pressure controlled, home medications continued with dose adjustment as needed 7. Gout 8. DVT prophylaxis SC Lovenox Code Visit Inpatient E&M: 61845 Subs Hosp L2
[2018-04-11 10:00] VITALS: BP 144/91; PULSE 90; RESP 18; TEMP 36.6; O2SAT 98
[2018-04-11] MEDS: Polyethylene Glycol 3350 17 GM PACKET GT (10:51)
[2018-04-11] MEDS: DALFAMPRIDINE 10 MG TAB.ER.12H PO ×2 (10:52→21:01)
[2018-04-11] MEDS: Vitamin B Comp W-C Capsule 1 CAP PO (10:52)
[2018-04-11] MEDS: Enoxaparin 40 MG/0.4 ML Syringe SC (10:52)
[2018-04-11] MEDS: Pantoprazole Sodium 40 MG Tablet PO (10:53)
[2018-04-11] MEDS: DULoxetine Hcl 60 MG Capsule PO (10:53)
[2018-04-11] MEDS: Calcium (Elemental) 500 MG Tablet PO (10:53)
[2018-04-11] MEDS: amLODIPine 5 MG Tablet PO (10:58)
[2018-04-11] MEDS: Losartan Potassium 100 MG Tablet PO (10:58)
[2018-04-11 15:02] VITALS: PULSE 82; RESP 17
--- NOTE | 2018-04-11 19:03 | NURSING ---
pt offered hamburger brought in by spouse for dinner, but pt refused it and chose to eat meal provided by hospital.
[2018-04-11 20:40] VITALS: PULSE 76; RESP 16; O2SAT 93
[2018-04-11] MEDS: carBAMazepine 200 MG Tablet PO (20:41)
[2018-04-11] MEDS: Senna/Docusate Sodium 1 Tablet 2 TABLET PO (21:01)
--- NOTE | 2018-04-12 02:48 | NURSING ---
2039 increased redness noted to bilateral heels, ankle and otter edge of the lt foot pt was agreeable to having feet elevated off the bed this hs stating that his heels are feeling tender from time to time. pt was noted to have wet underwear and did refuse to change when offered stating they will dry over night rn made aware
--- NOTE | 2018-04-12 04:43 | NURSING ---
Reviewed and agree with LPNs fims and handoff
[2018-04-12 06:16] VITALS: PULSE 88; RESP 16
[2018-04-12] MEDS: Ipratropium/Albuterol Sulfate 3 ML AMPUL.NEB INHALATION ×2 (06:16→19:59)
[2018-04-12] MEDS: Budesonide Respules 0.5 MG/2 ML AMPUL.NEB. INHALATION (06:17)
[2018-04-12] MEDS: Enoxaparin 40 MG/0.4 ML Syringe SC (08:35)
[2018-04-12] MEDS: Polyethylene Glycol 3350 17 GM PACKET GT (08:35)
[2018-04-12] MEDS: carBAMazepine 200 MG Tablet 100 MG PO (08:44)
[2018-04-12] MEDS: Vitamin B Comp W-C Capsule 1 CAP PO (09:33)
[2018-04-12] MEDS: DULoxetine Hcl 60 MG Capsule PO (09:34)
[2018-04-12] MEDS: amLODIPine 5 MG Tablet PO (09:34)
[2018-04-12] MEDS: DALFAMPRIDINE 10 MG TAB.ER.12H PO ×2 (09:34→20:36)
[2018-04-12] MEDS: GLATIRAMER ACETATE 40 MG/ML SQ (09:34)
[2018-04-12] MEDS: Losartan Potassium 100 MG Tablet PO (09:34)
[2018-04-12] MEDS: Pantoprazole Sodium 40 MG Tablet PO (09:35)
[2018-04-12] MEDS: Calcium (Elemental) 500 MG Tablet PO (09:35)
[2018-04-12 10:00] VITALS: BP 140/82; PULSE 82; RESP 18; TEMP 36.8; O2SAT 97
--- NOTE | 2018-04-12 12:09 | PCM.PN.NEU ---
Subjective: No issues overnight. Care discussed with the nursing staff. Staffed in the team meeting today. All questions were answered. Further therapy details as per PT/OT no documentation. Likely discharge home on 04/14/2018. 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-), power 5/5 both UE and right LE, 4/5 left LE, has left LE ankle brace, denies any sensory loss, Reflexes + B/L B/S/T/K/A, gait deferred, mild ataxia B/L UE (chronic per Ex-) Psych/Mental Status: Normal Affect Vital Signs Temp Pulse Resp BP Pulse Ox 97.8 F 88 16 144/91 H 93 04/11/18 10:00 04/12/18 06:16 04/12/18 06:16 04/11/18 10:00 04/11/18 20:40 Oxygen Flow Rate (L/min) 97 Oxygen Delivery Method Room Air Weight: 64.8 kg Body Mass Index (BMI) 21.1 Intake and Output for Last 24 Hours 04/10/18 04/11/18 04/12/18 23:59 23:59 23:59 Intake Total 260 / 260 400 / 400 640 / 640 Balance 260 / 260 400 / 400 640 / 640 Medical Necessity - Tobacco Use Smoking Status: Former smoker Assessment/Plan All Active Problems (Last Reviewed 03/31/18 @ 09:53 by Maciel Salas MD) Acute respiratory failure (Acute) Empyema of right pleural space (Resolved) PEG (percutaneous endoscopic gastrostomy) adjustment/replacement/removal (Resolved) The patient is a 73 year old M with PMH HTN, MS, BPH, COPD, H/'O cervical surgery (records not available) admitted to [facility] on 03/29/18 with debility s/p RSV infection, for > 3 hrs therapy daily, with a goal of returning home at or near his prior level of functional independence. Per ex- he was diagnosed with RRMS in [address] Campos from [facility], had gait instability initially when he was diagnosed with MS around 2009, then about 3 yrs later had ЮЛИЯ and double vision probably from description, had steroids in the past for relapse. Has been tried on Aubagio in the past, had some tolerance issues and at present is on Copaxone. Tolerating therapies well, fall precautions, further medical management per hospitalist recommendation. Plan -PT for gait stability and balance -OT for ADLs -Analgesic PRN -Bowel protocol -HTN- on Amlodipine and Losartan -MS- on Copaxone -Is on Tegretol for pain per Ex- and it has helped -COPD-albuterol and Budesonide. on Protonix for GI prophylaxis and Calcium -Depression- on Cymbalta -GI/DVT prophylaxis- on Protonix and Lovenox -Fall precautions -Further medical management per hospitalist recommendation -Follow up with PCP and Dr. Campos [facility] as outpatient.
--- NOTE | 2018-04-12 12:12 | PN.NEURO_ITS ---
Subjective: No issues overnight. Care discussed with the nursing staff. Staffed in the team meeting today. All questions were answered. Further therapy details as per PT/OT no documentation. Likely discharge home on 04/14/2018. 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-), power 5/5 both UE and right LE, 4/5 left LE, has left LE ankle brace, denies any sensory loss, Reflexes + B/L B/S/T/K/A, gait deferred, mild ataxia B/L UE (chronic per Ex-) Psych/Mental Status: Normal Affect Vital Signs Temp Pulse Resp BP Pulse Ox 97.8 F 88 16 144/91 H 93 04/11/18 10:00 04/12/18 06:16 04/12/18 06:16 04/11/18 10:00 04/11/18 20:40 Oxygen Flow Rate (L/min) 97 Oxygen Delivery Method Room Air Weight: 64.8 kg Body Mass Index (BMI) 21.1 Intake and Output for Last 24 Hours 04/10/18 04/11/18 04/12/18 23:59 23:59 23:59 Intake Total 260 / 260 400 / 400 640 / 640 Balance 260 / 260 400 / 400 640 / 640 Medical Necessity - Tobacco Use Smoking Status: Former smoker Assessment/Plan All Active Problems (Last Reviewed 03/31/18 @ 09:53 by Maciel Salas MD) Acute respiratory failure (Acute) Empyema of right pleural space (Resolved) PEG (percutaneous endoscopic gastrostomy) adjustment/replacement/removal (Resolved) The patient is a 73 year old M with PMH HTN, MS, BPH, COPD, H/'O cervical surgery (records not available) admitted to [facility] on 03/29/18 with debility s/p RSV infection, for > 3 hrs therapy daily, with a goal of returning home at or near his prior level of functional independence. Per ex- he was diagnosed with RRMS in [address] Campos from [facility], had gait instability initially when he was diagnosed with MS around 2009, then about 3 yrs later had ЮЛИЯ and double vision probably from description, had steroids in the past for relapse. Has been tried on Aubagio in the past, had some tolerance issues and at present is on Copaxone. Tolerating therapies well, fall precautions, further medical management per hospitalist recommendation. Plan -PT for gait stability and balance -OT for ADLs -Analgesic PRN -Bowel protocol -HTN- on Amlodipine and Losartan -MS- on Copaxone -Is on Tegretol for pain per Ex- and it has helped -COPD-albuterol and Budesonide. on Protonix for GI prophylaxis and Calcium -Depression- on Cymbalta -GI/DVT prophylaxis- on Protonix and Lovenox -Fall precautions -Further medical management per hospitalist recommendation -Follow up with PCP and Dr. Campos [facility] as outpatient.
--- NOTE | 2018-04-12 12:58 | CASEMGMT ---
Team meeting held. Patient present as well as patient spouse. Patient to discharge to home with spouse at time of discharge. Patient spouse planning to provide 24hr care either personally or via private duty aides. Patient plans to continue with working out at the [facility], no further therapy recommendations. Patient spouse plans to provide transportation home for patient at time of discharge. Patient reporting to have all needed durable medical equipment already set up within the home. Support given. Proposed discharge date: 04/14/18 PLAN: Discharge to home with spouse. Abisai KEENE, CORINA
[2018-04-12 19:59] VITALS: PULSE 89; RESP 16
[2018-04-12 20:35] VITALS: BP 133/70; PULSE 86; RESP 18; TEMP 36.6; O2SAT 91
[2018-04-12] MEDS: Senna/Docusate Sodium 1 Tablet 2 TABLET PO (20:36)
[2018-04-12] MEDS: carBAMazepine 200 MG Tablet PO (20:37)
--- NOTE | 2018-04-13 04:51 | NURSING ---
Reviewed and agree with CT MANAGER documentation and FIMs charting.
[2018-04-13 06:47] VITALS: PULSE 84; RESP 18
[2018-04-13] MEDS: Ipratropium/Albuterol Sulfate 3 ML AMPUL.NEB INHALATION ×2 (06:47→19:35)
[2018-04-13] MEDS: Budesonide Respules 0.5 MG/2 ML AMPUL.NEB. INHALATION (06:47)
[2018-04-13] MEDS: Enoxaparin 40 MG/0.4 ML Syringe SC (08:39)
[2018-04-13] MEDS: carBAMazepine 200 MG Tablet 100 MG PO (08:39)
[2018-04-13] MEDS: Polyethylene Glycol 3350 17 GM PACKET GT (08:39)
[2018-04-13 10:00] VITALS: BP 122/68; PULSE 78; RESP 18; TEMP 36.4; O2SAT 96
[2018-04-13] MEDS: Pantoprazole Sodium 40 MG Tablet PO (10:22)
[2018-04-13] MEDS: DALFAMPRIDINE 10 MG TAB.ER.12H PO ×2 (10:22→20:30)
[2018-04-13] MEDS: Vitamin B Comp W-C Capsule 1 CAP PO (10:23)
[2018-04-13] MEDS: amLODIPine 5 MG Tablet PO (10:23)
[2018-04-13] MEDS: Calcium (Elemental) 500 MG Tablet PO (10:23)
[2018-04-13] MEDS: DULoxetine Hcl 60 MG Capsule PO (10:23)
[2018-04-13] MEDS: Losartan Potassium 100 MG Tablet PO (10:25)
--- NOTE | 2018-04-13 15:37 | DCINST_ITS ---
- Discharge Diagnoses Reason(s) for Visit for Discharge Instructions: Debility status post RSV complicated by MS You will use the following diet at home:: No restrictions Your food should be the consistency of: Regular, Mechanical soft (ground) Your liquids should be the consistency of: Regular/Thin Discharge Activity: Return to Normal Activity, May Not Drive Weight Bearing Status: Weight bearing as tolerated Lifting Restrictions: 10 pounds Allergies/Adverse Reactions: Allergies hydrochlorothiazide Allergy (Verified 03/25/18 11:41) Unknown Medications to take at Discharge Cholecalciferol (VIT D3) [Vitamin D3] 5,000 unit PO DAILY 02/20/14 Calcium Carbonate 500 mg PO DAILY 04/19/16 Glatiramer Acetate [Copaxone] 40 mg SQ MOWEFR 04/19/16 coenzyme Q 10 10 mg capsule 10 mg PO ONCE 02/19/17 lansoprazole 30 mg capsule,delayed release 30 mg PO DAILY 02/19/17 ipratropium-albuterol 0.5 mg-3 mg(2.5 mg base)/3 mL nebulization soln 3 ml INHALATION TID #180 ml 03/24/17 budesonide 0.5 mg/2 mL suspension for nebulization 0.5 mg INHALATION QDAY #60 ml 03/25/17 Albuterol Sulfate [Proventil Hfa] 6.7 gm IH Q4H PRN 03/25/18 Amlodipine [Norvasc] 5 mg PO DAILY 03/25/18 Carbamazepine [Tegretol] 100 mg PO DAILY 03/25/18 Carbamazepine [Tegretol] 200 mg PO QHS 03/25/18 Duloxetine Hcl [Cymbalta] 60 mg PO DAILY 03/25/18 Ensure Enlive 237 ml GT QHS 03/25/18 Losartan Potassium [Cozaar] 100 mg PO DAILY 03/25/18 Vitamin B Comp W-C [Allbee W/C Caplet, Thera B Comp/C] 1 capsule PO DAILY [facility] \ 03/25/18 Dalfampridine [Ampyra] 10 mg PO BID@0900,2100 03/29/18 Prednisone [Deltasone] 40 mg PO DAILY 03/29/18 Primary Care Physician: Daquan Flores III, MD [Primary Care Provider] - Test Results: Test results from this visit will be discussed in further detail at your follow- up appointment, if applicable. Proposed Discharge Date: 04/14/18
--- NOTE | 2018-04-13 15:37 | PCM.RU.DC ---
Rehab Discharge Summary DATE OF ADMISSION: 03/29/18 DATE OF DISCHARGE: 04/14/18 - Rehab Diagnosis Debility status post RSV infection complicated by multiple sclerosis - Physical Exam General: Alert, Oriented x3, Cooperative, No apparent distress HEENT: Atraumatic, PERRLA, EOMI, Normocephalic Neck: Supple Lungs: Clear to auscultation Cardiovascular: Regular rate Abdomen: Bowel Sounds Present Musculoskeletal: No Tenderness to Palpation of Joints or Extremities Neurological: Cranial nerves II-XII grossly intact Psych/Mental Status: Normal Affect Vital Signs Temp Pulse Resp BP Pulse Ox 36.4 C L 78 18 122/68 H 96 04/13/18 10:00 04/13/18 10:00 04/13/18 10:00 04/13/18 10:00 04/13/18 10:00 Oxygen Flow Rate (L/min) 97 Oxygen Delivery Method Room Air Weight: 64.4 kg Body Mass Index (BMI) 21.1 Intake and Output for Last 24 Hours 04/11/18 04/12/18 04/13/18 23:59 23:59 23:59 Intake Total 400 / 400 640 / 640 320 / 320 Balance 400 / 400 640 / 640 320 / 320 Discharge Diet: No Restrictions Discharge Activity: Return to Normal Activity, May Not Drive Weight Bearing Status: Weight bearing as tolerated Home Medications: Medications to take at Discharge Cholecalciferol (VIT D3) [Vitamin D3] 5,000 unit PO DAILY 02/20/14 Calcium Carbonate 500 mg PO DAILY 04/19/16 Glatiramer Acetate [Copaxone] 40 mg SQ [id number] 04/19/16 coenzyme Q 10 10 mg capsule 10 mg PO ONCE 02/19/17 lansoprazole 30 mg capsule,delayed release 30 mg PO DAILY 02/19/17 ipratropium-albuterol 0.5 mg-3 mg(2.5 mg base)/3 mL nebulization soln 3 ml INHALATION TID #180 ml 03/24/17 budesonide 0.5 mg/2 mL suspension for nebulization 0.5 mg INHALATION QDAY #60 ml 03/25/17 Albuterol Sulfate [Proventil Hfa] 6.7 gm IH Q4H PRN 03/25/18 Amlodipine [Norvasc] 5 mg PO DAILY 03/25/18 Carbamazepine [Tegretol] 100 mg PO DAILY 03/25/18 Carbamazepine [Tegretol] 200 mg PO QHS 03/25/18 Duloxetine Hcl [Cymbalta] 60 mg PO DAILY 03/25/18 Ensure Enlive 237 ml GT QHS 03/25/18 Losartan Potassium [Cozaar] 100 mg PO DAILY 03/25/18 Vitamin B Comp W-C [Allbee W/C Caplet, Thera B Comp/C] 1 capsule PO DAILY MDD \ 03/25/18 Dalfampridine [Ampyra] 10 mg PO BID@0900,2100 03/29/18 Prednisone [Deltasone] 40 mg PO DAILY 03/29/18 Primary Care Physician: Daquan Flores III, MD [Primary Care Provider] - Disposition: Home Minutes spent on discharge:: 40 Patient Condition:: Good Rehab Course The patient is a 73 year old white male with long history of multiple sclerosis, became short of breath and was hospitalized and subsequently diagnosed with RSV infection complicated by his history of multiple sclerosis and possibly contributed by by some of his immunosuppressive medications including prednisone however the patient improved and was admitted to the rehab unit with ongoing debility in order to improve his functional status so that he could return home. The patient tolerated therapies, his rehab stay was uneventful and he was discharged home in the care of his with outpatient recommendation including therapies and outpatient follow-up. Meaningful Use Info Meaningful Use Diagnoses (Choose all that apply): None applicable
[2018-04-13 19:30] VITALS: BP 127/71; PULSE 86; RESP 18; TEMP 36.8; O2SAT 96
[2018-04-13 19:35] VITALS: PULSE 86; RESP 16
[2018-04-13] MEDS: carBAMazepine 200 MG Tablet PO (20:30)
[2018-04-13] MEDS: Senna/Docusate Sodium 1 Tablet 2 TABLET PO (20:30)
--- NOTE | 2018-04-14 04:01 | NURSING ---
Reviewed and agree with [employer] documentation and FIMs charting.
[2018-04-14 07:26] VITALS: PULSE 69; RESP 16
[2018-04-14] MEDS: Ipratropium/Albuterol Sulfate 3 ML AMPUL.NEB INHALATION (07:26)
[2018-04-14] MEDS: Enoxaparin 40 MG/0.4 ML Syringe SC (08:37)
[2018-04-14] MEDS: Polyethylene Glycol 3350 17 GM PACKET GT (08:37)
[2018-04-14 08:40] VITALS: BP 121/65; PULSE 81; RESP 16; TEMP 36.8; O2SAT 94
[2018-04-14] MEDS: carBAMazepine 200 MG Tablet 100 MG PO (08:41)
[2018-04-14] MEDS: DALFAMPRIDINE 10 MG TAB.ER.12H PO (09:46)
[2018-04-14] MEDS: Calcium (Elemental) 500 MG Tablet PO (09:47)
[2018-04-14] MEDS: Losartan Potassium 100 MG Tablet PO (09:47)
[2018-04-14] MEDS: DULoxetine Hcl 60 MG Capsule PO (09:47)
[2018-04-14] MEDS: Vitamin B Comp W-C Capsule 1 CAP PO (09:47)
[2018-04-14] MEDS: Pantoprazole Sodium 40 MG Tablet PO (09:47)
[2018-04-14] MEDS: amLODIPine 5 MG Tablet PO (09:47)
[2018-04-14] MEDS: GLATIRAMER ACETATE 40 MG/ML SQ (09:52)
[2018-04-14 12:47] VITALS: BP 121/65; PULSE 81; RESP 16; TEMP 36.8; O2SAT 94
--- NOTE | 2018-04-14 12:48 | NURSING ---
Went over discharge instructions, medications, and appts with spouse and pt. both verbalized understanding. Pt discharged home with all personal belongings. Taken to POV by wheelchair in stable condition. ]
--- OUTSIDE RECORDS SUMMARY | 2018-06-01 03:56 | XMS RPT_ITS ---
:1945 Author Organization OHIP Support Name Relationship Address Phone ERASMO DANG Unavailable [address] + [place] [address] R Unavailable Unavailable Unavailable MOWRER, ERASMO Unavailable [address] + [place] [address] R Unavailable Unavailable Unavailable MOWRER, ERASMO Unavailable [address] + [place] [address] R Unavailable Unavailable Unavailable MOWRER, ERASMO Unavailable [address] + [place] [address] R Unavailable Unavailable Unavailable MOWRER, ERASMO Unavailable [address] + [place] [address] R Unavailable Unavailable Unavailable MOWRER, ERASMO Unavailable [address] + [place] [address] R Unavailable Unavailable Unavailable MOWRER, ERASMO Unavailable [address] + [place] [address] R Unavailable Unavailable Unavailable MOWRER, ERASMO Unavailable [address] + [place] [address] R Unavailable Unavailable Unavailable MOWRER, ERASMO Unavailable [address] + [place] [address] R Unavailable Unavailable Unavailable MOWRER, ERASMO Unavailable [address] + [place] [address] R Unavailable Unavailable Unavailable MOWRER, ERASMO Unavailable [address] + [place] [address] R Unavailable Unavailable Unavailable Care Team Providers [...] Attending Unavailable Sementi, Kenyetta Admitting Unavailable Isabella Irby NP-C Attending Unavailable Cebul III, Daquan Primary Care Unavailable Sementi, Kenyetta Consulting Unavailable Sementi, Kenyetta Admitting Unavailable KittoSilver [...] Valencia Consulting Unavailable Maciel Salas Admitting Unavailable Abrahan Valencia Attending Unavailable Maciel Salas Referring Unavailable Cebul III, Daquan Primary Care Unavailable Abrahan Valencia Consulting Unavailable Maciel Salas Consulting Unavailable PROBLEMS PROBLEMS DATE TYPE CONDITION / CODE ATTENDING STATUS SOURCE 03/04/2018 Active 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 Repository (chronic) / D50.0(ICD-10) 03/04/2018 Active Cough / NA Active [facility] R05(ICD-10) [place] Repository 01/08/2018 Unknown R13.10 - William Flores Active [place] Dysphagia, Community unspecified / Hospital R13.10(ICD-10) Repository 11/11/2017 Active Vitamin D NA Active [facility] deficiency, [place] unspecified / Repository E55.9(ICD-10) 07/28/2017 Unknown L89.150 - Pressure William Folres Active [place] ulcer of sacral [facility], Hospital unstageable / Repository L89.150(ICD-10) 08/18/2016 Active Iron deficiency NA Active [facility] anemia, [place] unspecified / Repository D50.9(ICD-10) 01/26/2014 Active Multiple sclerosis NA Active [facility] / G35(ICD-10) [place] Repository 05/25/2017 Active Other iron NA Active [facility] deficiency anemias [place] / D50.8(ICD-10) Repository 05/25/2017 Active 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 Repository / J41.8(ICD-10) PROCEDURES PROCEDURES No Procedure Records FoundRESULTS RESULTS CONSULTATION Observed: 04/02/2018 Status: F Source: [place] 1:49 PM [facility] HOSPITAL REPOSITORY [facility] Medical Records Department [address] [place] [address] Consultation 03/26/18 1309 MR#: [id number] Acct: [id number] Name: PETE DANG Rep #: [id number] : 1945 73 From: Bi Pereira MD PCP: Daquan Flores III, MD Status: DIS IN Y Location: MS3 AZ511-6 Problem List (1) Multiple sclerosis Status: Chronic Reason for Consult Date of Consultation: 03/26/18 Reason for Consultation: MS History of Present Illness: The patient is a 73 year old M with PMH HTN, MS, BPH, COPD, H/'O cervical surgery (records not available) admitted with generalized weakness and hypoxemia. Neurology consulted as patient has h/o MS. History is obtained from patient and his personal care aide (ex-) with whom he lives. Per ex- he was diagnosed with RRMS in [address] Campos from [facility], had gait instability initially when he was [...] Clarity Cloudy Urine pH 7.0 Ur Specific [place] 1.015 Assessment/Plan All Active Problems (Last Reviewed [...] History is obtained from patient and his personal care aide (ex-) with whom he lives. Per ex- he was diagnosed with RRMS in [address] Campos from [facility], had gait instability initially when he was [...] B infection -Follow up with Dr. Campos [facility] for MS in 4-6 weeks -Fall precautions -PT/OT -GI/DVT prophylaxis -Further medical management per hospitalist -Please call with questions if any -Thank you for allowing us to participate in patient's care and management Code Visit Inpatient E AND M: 09101 Init Hosp L3 04/02/18 4830 <Electronically signed by Bi Pereira MD> Date Bi Pereira MD Cosigner Signature (if applicable): Date CC: Dale Pereira MD; Daquan Flores III, MD Signed HISTORY AND PHYSICAL Observed: 03/31/2018 Status: F Source: [place] EXAM 9:55 AM [facility] REPOSITORY [facility] Medical Records Department [address] [place] [address] History and Physical 03/29/18 1200 MR#: [id number] Acct: [id number] Name: PETE DANG Rep #: [id number] : 1945 73 From: Maciel Salas MD PCP: Daquan Flores III, MD Status: DIS IN Y Location: MS3 VB510-5 History of Present Illness Date of Admission: [...] and underlying MS. Goal of rehab is caodaism of prior level of functional independence. Plan: Physical therapy for gait and balance Occupational Therapy for ADLs PRN analgesics Continue Copaxone As needed aerosols PRN analgesics Bowel protocol 03/31/18 0955 <Electronically signed by Maciel Salas MD> Date Maciel Salas MD [facility] Signature: Date (if applicable) CC: Daquan Flores III, MD; Maciel Salas MD Signed DISCHARGE SUMMARY Observed: 03/29/2018 Status: F Source: [place] 12:59 PM [facility] REPOSITORY [facility] Medical Records Department [address] [place] [address] Discharge Summary 03/29/18 1248 MR#: [id number] Acct: [id number] Name: PETE DANG Rep #: [id number] : 1945 73 From: Abrahan Valencia MD PCP: Daquan Flores III, MD Status: ADM IN Location: [place] [address] Discharge Date and Diagnosis Date of Admission: [...] applicable Code Visit Inpatient E AND M: 80829 Disch Hosp 03/29/18 1259 <Electronically signed by Abrahan Valencia MD> Date Abrahan Valencia MD Cosigner Signature (if applicable): Date CC: Daquan Flores III, MD; Abrahan Valencia MD Signed DISCHARGE INSTRUCTION Observed: 03/29/2018 Status: F Source: [place] 12:48 PM [facility] REPOSITORY [facility] Medical Records Department [address] [place] [address] Instructions for Home/Discharge Instructions 03/29/18 1245 MR#: [id number] Acct: [id number] Name: PETE DANG Rep #: [id number] : 1945 73 From: Abrahan Valencia MD [...] 03/29/2018 Status: F Source: [place] 9:21 AM [facility] REPOSITORY [facility] [place] [address] 12 Lead EKG 03/25/18 1139 MR#: [id number] Acct: [id number] Name: PETE DANG Rep #: [id number] : 1945 73 From: Jayesh Salter MD [...] ECG Confirmed by ASHELY GONSALEZ, JAYESH ([id number]), visual effects editor SAM CALIXTO ([id number]) on 03/29/2018 9:21:27 AM Referred By: ANGEL/JEFF Confirmed By:JAYESH SALTER MD 03/29/18920 Date Jayesh Salter MD CC: Daquan Flores III, MD; James Hunt MD; Abrahan Valencia MD Signed BASIC METABOLIC Collected: 03/29/2018 Status: F Source: [place] PROFILE (BMP) 5:02 AM [facility] REPOSITORY TYPE CODE TESTS RESULT OUT OF [...] GAP 7 Performed By: #### L500.2500 #### [facility] [address] [place], [place], [id number] CBC-COMPLETE BLOOD CNT Collected: 03/29/2018 Status: F Source: [place] NO DIFF 5:02 AM [facility] REPOSITORY TYPE CODE TESTS RESULT OUT OF [...] MPV 10.5 Performed By: #### L100.0500 #### [facility] [place], [place], [id number] CBC-COMPLETE BLOOD CNT Collected: 03/28/2018 Status: F Source: [place] NO DIFF 8:50 AM [facility] REPOSITORY TYPE CODE TESTS RESULT OUT OF [...] MPV 10.3 Performed By: #### L100.0500 #### [facility] [address] [place], [place], [id number] BASIC METABOLIC Collected: 03/28/2018 Status: F Source: [place] PROFILE (BMP) 8:50 AM [facility] REPOSITORY TYPE CODE TESTS RESULT OUT OF [...] 8 Performed By: #### L500.2500, L501.5200 #### [facility] [address] [place], [address] MAGNESIUM Collected: 03/28/2018 Status: F Source: [place] 8:50 AM [facility] REPOSITORY TYPE CODE TESTS RESULT OUT OF RANGE REFERENCE UNITS LAB L501.5200 1.6-2.6 mg/dL Normal MG 2.1 Performed By: #### L500.2500, L501.5200 #### [facility] [address] [place], [address] HISTORY AND PHYSICAL Observed: 03/25/2018 Status: F Source: [place] EXAM 9:04 PM [facility] REPOSITORY [facility] Medical Records Department [address] [place] [address] History and Physical 03/25/18 1602 MR#: [id number] Acct: [id number] Name: PETE DANG Rep #: [id number] : 1945 73 From: Isabella BRAVOC PCP: Daquan Flores III, MD Status: ADM ЮЛИЯ Y Location: [place]3 MW211-7 ADDENDUM by Kenyetta Sellers on 03/25/18 at [...] have been written. Inpatient E AND M: 57132 Init Hosp L2 03/25/182103 <Electronically signed by [...] under the supervision of Dr. Sellers. 03/25/18 7089 <Electronically signed by Isabella DOTSON> Date Isabella Irby CANAL STRUCTURE OPERATOR-C 03/25/182050<Electronically signed by Elizabeth Sellers DO> Cosigner Signature: Date (if applicable) Elizabeth Sellers DO CC: CANAL STRUCTURE OPERATORRamone Irby; Kenyetta Sellers; Daquan Flores III, MD Signed Observed: 03/25/2018 Status: C Source: [place] RESPIRATORY PANEL 4:40 PM [facility] MOLECULAR REPOSITORY Order Date: 03/25/18 Has pt arrived? Y CRITICAL VALUE VERIFIED. CALLED TO YASMANI SALDANA 03/26/18 3149 Paula Alonso. RESULTS READ BACK BY SAME . RP PANEL Normal Reference Range = Not Detected Copy of report sent to Infection Control Printer [id number] 03/26/18 0712 Shareable Social. ADENOVIRUS Not Detected HUMAN METAPHNEUMO Not Detected [...] RSV B Performed By: #### M100.638 #### [facility] [address] [facility] [place], [address] EMERGENCY DEPARTMENT Observed: 03/25/2018 Status: F Source: [place] SUMMARY 4:04 PM [facility] HOSPITAL REPOSITORY [facility] Medical Records Department [address] [place] [address] Emergency Department Summary 03/25/18 1205 MR#: [id number] Acct: [id number] Name: PETE DANG Rep #: [id number] : 1945 73 From: James Hunt MD [...] of MS This note was generated with [employer] dictation software. It may contain incorrect words, [...] your Primary Care Provider. Call [facility] ([phone]) or report to the closest Emergency Room. Call 911 if necessary. 03/25/18 1604 <Electronically signed by James Hunt MD> Date James Hunt MD Cosigner Signature (If Indicated): Date CC: Daquan Flores III, MD URINALYSIS, COMPLETE Collected: 03/25/2018 Status: F Source: [place] 2:20 PM [facility] REPOSITORY Order Comment: How was Urine Obtained? [...] Normal AMORPHOUS Performed By: #### L400.0001 #### [facility] [address] [place], [address] CHEST PA AND LATERAL Observed: 03/25/2018 Status: F Source: [place] 12:04 PM [facility] REPOSITORY [facility] Imaging Services [address] [place] [address] Chest PA and Lateral MR#: [id number] Acct: [id number] Name: PETE DANG Rep #: [id number] : 1945 M 73 From: Bob Jolley MD PCP: Daquan Flores III, MD Status: REG ER Study: Chest PA and Lateral Date of Exam: 03/25/18 Exam# [id number] Ordering Dr: James Hunt MD STUDY: X-RAY [...] Bob Jolley MD at 14:59 EST Tel [phone], Service support , CC: Daquan Flores III, MD; James Hunt MD Chief Orthoptist: Signed CBC W/DIFF, AUTOMATED Collected: 03/25/2018 Status: F Source: [place] 12:00 AM [facility] REPOSITORY TYPE CODE TESTS RESULT OUT OF [...] 1.34 Performed By: #### L100.0100 #### [facility] [place], [address] BASIC METABOLIC Collected: 03/25/2018 Status: F Source: [place] PROFILE (BMP) 12:00 AM [facility] REPOSITORY TYPE CODE TESTS RESULT OUT OF [...] GAP 7 Performed By: #### L500.2500 #### [facility] [address] [place], [place], [address] URINALYSIS WITH Collected: 03/20/2018 Status: F Source: [place] MICROSCOPIC 10:25 AM [facility] REPOSITORY TYPE CODE TESTS RESULT OUT OF RANGE REFERENCE UNITS LAB UCOL Yellow Color Yellow LAB [facility] Clear Clarity Abnormal Cloudy Alert LAB UGLUC Negative mg/dL Glucose, Urine Negative LAB UBIL Negative Bilirubin, Urine Negative LAB UKET Negative Ketones, Urine Negative LAB USPG 1.005-1.030 Specific [place], Ur 1.020 LAB UHGB Negative Hemoglobin/Blood, Negative Ur LAB UPH 4.5-8.0 pH 6.0 LAB UPROT Negative mg/dL Protein, Urine Negative LAB UUROB Normal Urobilinogen Normal LAB UNITR Negative Nitrites Negative LAB ULKEST Negative Leukest Negative LAB UCOM Comments SEE COMMENT Result Comment: N/A LAB UMCOM Urine SEE Flavio Comment COMMENT Result Comment: Rechecked by light microscopy. LAB UWBC 0-5 /HPF WBC 0-5 LAB URBC 0-3 /HPF Abnormal Alert RBC 3-5 Performed By: #### UAWMIC #### [facility] [address] [place] [address] Observed: 03/20/2018 Status: F Source: [place] URINE CULTURE 10:25 AM [facility] REPOSITORY Culture Result - No growth (<1,000 CFU/ml) Performed By: #### URCUL #### [facility] [address] [place] [address] CNCO Observed: 03/18/2018 Status: COMPLETED Source: [place] 12:00 AM [facility] REPOSITORY Letter Text [facility] [address] [place], [place] [address] Pete Dang [address] [place] [phone] March 18, 2018 To whom it may [...] M.D PROGRESS Observed: 03/16/2018 Status: COMPLETED Source: [place] 4:07 PM [facility] REPOSITORY HNO ID: [id number] Author: Daquan Flores III Service: (none) Author [...] 03/13/2016 - COPD (chronic obstructive pulmonary disease) ([facility]) - Decubitus ulcer of coccygeal region, unstageable ([facility]) - Degeneration of cervical intervertebral disc 09/16/2007 - Depressive disorder, not elsewhere classified 09/25/2010 - Displacement of lumbar intervertebral disc without myelopathy 10/10/2008 - Duodenal ulcer, unspecified as acute or chronic, without hemorrhage, perforation, or obstruction - Dysphagia, unspecified(787.20) 09/26/2009 - GOUT NOS 09/16/2007 - HTN (hypertension) - MS (multiple sclerosis) ([facility]) Dr. Hernandez in [place] - Osteitis deformans [...] MD CNOV Observed: 03/16/2018 Status: COMPLETED Source: [place] 3:20 PM [facility] REPOSITORY Office Visit (FAMPWS) PETE DANG ([id number]) 1945 M Date Time Provider Department 03/16/18 [...] 03/13/2016 - COPD (chronic obstructive pulmonary disease) ([facility]) - Decubitus ulcer of coccygeal region, unstageable ([facility]) - Degeneration of cervical intervertebral disc 09/16/2007 - Depressive disorder, not elsewhere classified 09/25/2010 - Displacement of lumbar intervertebral disc without myelopathy 10/10/2008 - Duodenal ulcer, unspecified as acute or chronic, without hemorrhage, perforation, or obstruction - Dysphagia, unspecified(787.20) 09/26/2009 - GOUT NOS 09/16/2007 - HTN (hypertension) - MS (multiple sclerosis) ([facility]) Dr. 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] Hypertension, essential [I10] [place]-colored urine [R82.998] Order(s):AEROCHAMBER SPACER [5058061] Order #: [id number] amLODIPine (NORVASC) 5 mg tabletTake 1 tablet by mouth once daily.Disp: 30 tabletRfl: 12 URINALYSIS WITH MICROSCOPIC [SQUAWMIC] Order #: [id number] Prescriptions as of 03/16/2018 Sig: BUDESONIDE 0.5 [...] 03/16/18 PROGRESS Observed: 03/05/2018 Status: COMPLETED Source: [place] 7:28 PM [facility] REPOSITORY HNO ID: [id number] Author: Daquan Flores III Service: (none) Author Type: Physician Type: Progress Notes Filed: 03/05/2018 7:28 PM Note Text: Good news?the anemia has resolved. You may stop taking the iron supplement. Daquan Flores III, MD, FAAFP PROGRESS Observed: 03/05/2018 Status: COMPLETED Source: [place] 7:27 PM [facility] REPOSITORY HNO ID: [id number] Author: Daquan Flores III Service: (none) Author Type: Physician Type: Progress Notes Filed: 03/05/2018 7:27 PM Note Text: The chest x-ray result shows chronic, stable changes but no evidence of pneumonia or significant fluid accumulation. Daquan Flores III, MD, FAAFP CNOV Observed: 03/04/2018 Status: COMPLETED Source: [place] 1:30 PM [facility] REPOSITORY Office Visit (LABMOB) PETE DANG ([id number]) 1945 M Date Time Provider Department 03/04/18 1:30 PM [facility] LABMOB During your visit today, we recorded the following information about you: Daquan Flores III MD 03/05/2018 7:28 PM Signed Good news?the anemia has resolved. You may stop taking the iron supplement. Daquan Flores III, MD, FAAFP Referring Provider: DAQUAN FLORES III [[id number]] Allergies As of Date: 03/04/2018 Noted Allergy Reaction HCTZ (THIAZIDES) 10/24/2013 14 - Other: See Comments Comments: nocturia, frequency Date Reviewed: 11/24/2016 Reviewed by: Sully Marcelino Ma - Fully Assessed Visit Diagnosis:Iron deficiency anemia due to chronic blood loss [D50.0] Order(s):CBC [[facility]] Order #: [id number]. #:[id number] Prescriptions as of 03/04/2018 Sig: ALBUTEROL SULFATE [...] 03/08/18 PROGRESS Observed: 03/04/2018 Status: COMPLETED Source: [place] 1:15 PM [facility] REPOSITORY HNO ID: [id number] Author: Kerry (Rt) Stacey Ya Service: (none) Author Type: Motor Vehicle Inspector Type: Progress Notes Filed: 03/04/2018 1:15 PM [...] 2V FRONTAL/LAT Observed: 03/04/2018 Status: F Source: [place] 1:14 PM [facility] REPOSITORY * * *Final Report* [...] stable. No developing abnormality or acute process Chief Orthoptist: DINA Transcribe Date/Time: Mar 04 2018 3:01P Dictated by : MARINA TAYLOR MD This examination was interpreted and the report reviewed and electronically signed by: MARINA TAYLOR MD on Mar 04 2018 3:03PM EST [id number] Collected: 03/04/2018 Status: F Source: [place] 12:49 PM [facility] REPOSITORY TYPE CODE TESTS RESULT [...] nRBC <0.01 Performed By: #### CBC #### [facility] [address] [place], [place] [address] PROGRESS Observed: 03/01/2018 Status: COMPLETED Source: [place] 10:33 AM [facility] REPOSITORY HNO ID: [id number] Author: Taran Post Service: (none) Author Type: Physician Disabilities Caregiver Type: Progress Notes Filed: 03/01/2018 10:33 AM Note Text: Done. Karen Post PA-C PROGRESS Observed: 03/01/2018 Status: COMPLETED Source: [place] 8:55 AM [facility] REPOSITORY HNO ID: [id number] Author: Cinthya Gould Service: (none) Author Type: Group Work Program Aide Type: Progress Notes Filed: 03/01/2018 10:33 AM Note Text: Please reorder RXs Send to [facility] [place] and link diagnosis to each prescription. Thanks, Cinthya Gould MA CNPTOUTREACH Observed: 03/01/2018 Status: COMPLETED Source: [place] 12:00 AM [facility] REPOSITORY Patient Outreach (FAMPWS) PETE DANG ([id number]) 1945 M Date Time Provider Department 03/01/18 CINTHYA GOULD) FAMPWS During your visit today, we recorded the following information about you: Cinthya Gould MA 03/01/2018 10:33 AM Signed Please reorder RXs Send to [facility] [place] and link diagnosis to each prescription. Thanks, NILDA Carvajal PA-C 03/01/2018 10:33 AM Signed Done. Karen Post PA-C Allergies As of Date: 03/01/2018 Noted Allergy Reaction HCTZ (THIAZIDES) 10/24/2013 14 - Other: See Comments Comments: nocturia, frequency Date Reviewed: 11/24/2016 Reviewed by: Sully Marcelino Ma - Fully Assessed Reason for Visit: PHMA/Care Gap Outreach [8990] Visit Diagnoses:Mixed simple and mucopurulent chronic bronchitis [...] 03/01/18 PROGRESS Observed: 02/24/2018 Status: COMPLETED Source: [place] 8:54 AM [facility] REPOSITORY HNO ID: [id number] Author: Cinthya Alejandro) Luis Fernando Service: (none) Author Type: Group Work Program Aide Type: Progress Notes Filed: 02/24/2018 9:18 AM Note Text: Please send new RX for DUONEB .5mg-3mg to [facility] with DX. Thanks, Cinthya Gould MA CNPTOUTREACH Observed: 02/24/2018 Status: COMPLETED Source: [place] 12:00 AM [facility] REPOSITORY Patient Outreach (FPWADS) PETE DANG ([id number]) 1945 M Date Time Provider Department 02/24/18 CINTHYA GOULD) FPWADS During your visit today, we recorded the following information about you: Cinthya Gould MA 02/24/2018 9:18 AM Signed Please send new RX for DUONEB .5mg-3mg to [facility] with DX. Cinthya Murphy MA Allergies As [...] VISIT REPORT Observed: 01/08/2018 Status: F Source: [place] 2:15 PM [facility] REPOSITORY [facility] [address] [place] [address] [address] [place] [address] OFFICE VISIT Date of Service: 01/08/18 MR#: [id number] Acct: [id number] Name: PETE DANG Rep #: [id number] : 1945 Provider: William Flores MD Age/Sex: 72/M Location: [facility] Status: Signed Intake Intake Visit Reasons: Peg tube exchange per , no ref Chief Complaint: peg exchange Operations Lieutenant Required: No Is patient in pain?: No Allergies hydrochlorothiazide Allergy (Verified 01/08/18 11:54) Unknown Medications Cholecalciferol (VIT D3) [Vitamin D3] 5,000 unit PO DAILY 02/20/14 [History Confirmed 02/19/17] [place]-3 Fatty Acids/Fish Oil [Fish Oil 1,000 mg [...] TOPICAL TID tube 07/14/16 [Rx Confirmed 02/19/17] [place]-3 Acid Ethyl Esters [Lovaza] 1 gm PO [...] Orders: Coding Level of Care Code Attention Director Of Catering Sales Diagnoses PEG (percutaneous endoscopic gastrostomy) adjustment/replacement/removal Z43.1 01/08/18 1415 <Electronically signed by William Flores MD> Date William Flores MD Cosigner Signature: Date (if applicable) CC: Daquan Flores III, MD PROGRESS Observed: 11/30/2017 Status: COMPLETED Source: [place] 2:34 PM [facility] REPOSITORY O ID: [id number] Author: nAa Lopez MA Service: (none) Author Type: Group Work Program Aide Type: Progress Notes Filed: 11/30/2017 6:20 PM Note Text: 72 year old male here for INACTIVATED INFLUENZA VACCINE. [id number] Season Patient is identified by name and date of : Yes [] CONTRAINDICATIONS color enhanced section Age less than 6 months? No Allergy to eggs, chicken, chicken feathers, or chicken dander? No Allergy to thimerosal (a preservative) or formaldehyde, gelatin? No History of severe reaction to any vaccine component or a previous dose of influenza vaccination? 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 Yes [facility] for details of immunizations adminstered today. Patient age: [age] year old For The 3018-1809 Flu Season 6-35 months old: Fluzone 0.25 [...] time. PROGRESS Observed: 11/30/2017 Status: COMPLETED Source: [place] 2:24 PM [facility] [place] REPOSITORY HNO ID: [id number] Author: Daquan Flores III Service: (none) Author [...] this time. He is going to the [employer] for regular exercise. PAST MEDICAL HISTORY Diagnosis [...] - HTN (hypertension) - MS (multiple sclerosis) ([facility]) Dr. Hernandez in [place] - Osteitis deformans [...] cream Apply to affected area twice daily. [place]-3 Fatty Acids (FISH OIL) 500 mg ORAL [...] Range: 1.00 - 4.00 k/uL 0.79 (L) Laurel% Latest Units: % 12.3 Abs Laurel Latest Ref Range: <0.87 k/uL 0.66 Eosin% [...] MD CNOV Observed: 11/30/2017 Status: COMPLETED Source: [place] 2:00 PM [facility] PETE DANG ([id number]) 1945 M Date Time Provider Department 11/30/17 [...] this time. He is going to the [facility] for regular exercise. PAST MEDICAL HISTORY Diagnosis Date - Abnormality of gait 10/10/2008 - ANEMIA IRON DEF, CHR BLOOD LOSS 07/09/2007 last hb normal 2011 - Anemia, unspecified - Buttock wound - Cervical disc disorder with radiculopathy 03/13/2016 - COPD (chronic obstructive pulmonary disease) ([facility]) - Decubitus ulcer of coccygeal region, unstageable ([facility]) - Degeneration of cervical intervertebral disc 09/16/2007 - Depressive disorder, not elsewhere classified 09/25/2010 - Displacement of lumbar intervertebral disc without myelopathy 10/10/2008 - Duodenal ulcer, unspecified as acute or chronic, without hemorrhage, perforation, or obstruction - Dysphagia, unspecified(787.20) 09/26/2009 - GOUT NOS 09/16/2007 - HTN (hypertension) - MS (multiple sclerosis) ([facility]) Dr. 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 [place]-3 Fatty Acids (FISH OIL) 500 mg ORAL [...] Range: 1.00 - 4.00 k/uL 0.79 (L) Laurel% Latest Units: % 12.3 Abs Laurel Latest Ref Range: <0.87 k/uL 0.66 Eosin% [...] medications flu shot given OLGA LIDIA Alvarez MD,ESTHETICIAN, MA 11/30/2017 6:20 PM Signed 72 year old male here for INACTIVATED INFLUENZA VACCINE. 7743-4838 Season Patient is identified by name and date of : Yes [] CONTRAINDICATIONS color enhanced section Age less than 6 months? No Allergy to eggs, chicken, chicken feathers, or chicken dander? No Allergy to thimerosal (a preservative) or formaldehyde, gelatin? No History of severe reaction to any vaccine component or a previous dose of influenza vaccination? 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 Yes See immunization activity in [facility] for details of immunizations adminstered today. Patient age: [age] year old For The 2962-4733 Flu Season 6-35 months old: Fluzone 0.25 [...] III MD Referring Provider: DAQUAN FLORES III [[id number]] Allergies As of Date: 11/30/2017 Noted Allergy [...] 4 INFLUENZA SEASONAL HIGH DOSE AGE 65+ [[id number]] Order #: [id number] CBC [[facility]] Order #: [id number] FUTURE Prescriptions as of 11/30/2017 Sig: HYDROCORTISONE [...] on 11/30/2017 Disc: Course of therapy completed [place]-3 Fatty Acids (FISH OIL) 500 m* 11/30/2017 Class: Med Update Route: ORAL Sig: Take 500 mg by mouth once daily. Disc: Discontinued by Patient Encounter Status:Closed by DAQUAN FLORES III, MD on 11/30/17 PROGRESS Observed: 11/19/2017 Status: COMPLETED Source: [place] 6:57 PM [facility] REPOSITORY HNO ID: [id number] Author: Daquan Flores III Service: (none) Author Type: Physician Type: Progress Notes Filed: 11/19/2017 6:57 PM Note Text: Good news?the lab results look pretty good. He shows stable renal function, liver function tests, and hemoglobin. May discuss in more detail at the upcoming appointment. Daquan Flores III, MD, FAAFP CNOV Observed: 11/11/2017 Status: COMPLETED Source: [place] 1:30 PM [facility] REPOSITORY Office Visit ([facility]) PETE DANG ([id number]) 1945 M Date Time Provider Department 11/11/17 1:30 PM LAB [facility] MOB [facility] During your visit today, we recorded the following information about you: Daquan Flores III MD 11/19/2017 6:57 PM Signed Good news?the lab results look pretty good. He shows stable renal function, liver function tests, and hemoglobin. May discuss in more detail at the upcoming appointment. Daquan Flores III, MD, FAAFP Referring Provider: DAQUAN FLORES III [[id number]] Allergies As of Date: 11/11/2017 Noted Allergy Reaction HCTZ (THIAZIDES) 10/24/2013 14 - Other: See Comments Comments: nocturia, frequency Date Reviewed: 11/24/2016 Reviewed by: Sully Marcelino Ma - Fully Assessed Visit Diagnoses:Vitamin D deficiency [E55.9] Iron deficiency anemia, unspecified iron deficiency anemia type [D50.9] MS (multiple sclerosis) (HCC) [G35] Order(s):VITAMIN D 25 HYDROXY [SQVITD] Order #: [id number]. #:[id number] IRON + TIBC [SQIRON] Order #: [id number]. #:[id number] CBC + DIFF [SQCBCDIF] Order #: [id number]. #:[id number] COMP METABOLIC PANEL [SQCMP] Order #: [id number]. #:[id number] Prescriptions as of 11/11/2017 Sig: DULOXETINE 60 [...] AND DIFFERENTIAL Collected: 11/11/2017 Status: F Source: [place] 12:38 PM [facility] REPOSITORY TYPE [...] Low Abs Lymph 0.79 LAB AMONO % Laurel% 12.3 LAB AAMONO <0.87 k/uL Abs Laurel 0.66 LAB AEOS % Eosin% 3.9 LAB AAEOS <0.46 k/uL Abs Eosin 0.21 LAB ABASO % Baso% 1.5 LAB AABASO <0.11 k/uL Abs Baso 0.08 LAB AUNRBC 0 /100 WBC NRBCs 0.0 LAB ABNRBC <0.01 k/uL Absolute nRBC <0.01 LAB DTYP DTYPE Auto Diff Performed By: #### CBCDIF, VITD, CMP, IRON #### [facility] [employer] [place], [place] [address] VITAMIN D 25 HYDROXY Collected: 11/11/2017 Status: F Source: [place] 12:38 PM [facility] REPOSITORY TYPE CODE TESTS RESULT OUT OF REFERENCE UNITS RANGE LAB VITD 31.0-80.0 ng/mL Vitamin D 25 73.0 Hydroxy Result Comment: Classification of 25 [place] Vitamin D status: Insufficiency/Moderate Deficiency: < or = 30 ng/mL Sufficiency/Optimal Levels: 31 to 80 ng/mL Toxicity: > 100 ng/mL Test performed by chemiluminescent immunoassay. Performed By: #### CBCDIF, VITD, CMP, IRON #### [facility] [employer] [place], [place] [address] COMP METABOLIC PANEL Collected: 11/11/2017 Status: F Source: [place] 12:38 PM [facility] REPOSITORY TYPE CODE TESTS RESULT OUT OF REFERENCE UNITS RANGE LAB TP 6.3-8.0 g/dL Protein, Total 6.7 LAB ALB 3.9-4.9 g/dL Albumin 4.3 LAB CA 8.5-10.2 mg/dL Calcium, Total 8.9 LAB TBIL 0.2-1.3 mg/dL Bilirubin, Total 0.3 LAB ALKP 36-108 U/L Alkaline Phosphatase 79 LAB AST 14-40 U/L AST 35 LAB GLU 74-99 mg/dL Low Glucose 66 Result Comment: The [place] Diabetes Association (ADA) provides guidance for cutoff [...] Standards of Medical Care in Diabetes 2016, [place] Diabetes Association. Diabetes Care. 2016.39(Suppl 1). LAB [...] By: #### CBCDIF, VITD, CMP, IRON #### [facility] [address] [place], [place] [address] IRON AND TIBC Collected: 11/11/2017 Status: F Source: [place] 12:38 PM [facility] REPOSITORY TYPE CODE TESTS RESULT OUT OF REFERENCE UNITS RANGE LAB IRN 41-186 ug/dL Iron 98 LAB TIBC 232-386 ug/dL TIBC 364 LAB SAT 15-57 % Transferrin Saturatn 27 Performed By: #### CBCDIF, VITD, CMP, IRON #### [facility] [address] [place], [place] [address] SURGERY VISIT REPORT Observed: 06/24/2017 Status: F Source: [place] 2:10 PM [facility] REPOSITORY [facility] [address] [place] [address]. [address] [place] [address] OFFICE VISIT Date of Service: 06/24/17 MR#: [id number] Acct: [id number] Name: PETE DANG Rep #: [id number] : 1945 Provider: William Flores MD Age/Sex: 72/M Location: [facility] Status: Signed Intake Intake Visit Reasons: open wound coccyx Chief Complaint: buttock wound Operations Lieutenant Required: No Is patient in pain?: No Allergies hydrochlorothiazide Allergy (Verified 06/24/17 12:57) Unknown Medications Cholecalciferol (VIT D3) [Vitamin D3] 5,000 unit PO DAILY 02/20/14 [History Confirmed 02/19/17] [place]-3 Fatty Acids/Fish Oil [Fish Oil 1,000 mg [...] TOPICAL TID tube 07/14/16 [Rx Confirmed 02/19/17] [place]-3 Acid Ethyl Esters [Lovaza] 1 gm PO [...] low-dose aspirin. He does go to the [facility] for rehabilitation. With assistance he sits in [...] MD PROGRESS Observed: 05/26/2017 Status: COMPLETED Source: [place] 2:35 PM [facility] REPOSITORY O ID: [id number] Author: Daquan Flores III Service: (none) Author Type: Physician Type: Progress Notes Filed: 05/26/2017 2:35 PM Note Text: Mr. Dang, good news?the iron levels are much improved though you still have a mild anemia. Renal function is fine. I recommend continuing iron supplements for several more months. Continue with physical activity as able. Daquan Flores III, MD, FAAFPr, FERRITIN Collected: 05/25/2017 Status: F Source: [place] 2:10 PM [facility] REPOSITORY TYPE CODE TESTS RESULT OUT OF REFERENCE UNITS RANGE LAB FERR 30.3-565.7 ng/mL Ferritin 35.2 Performed By: #### FERR, IRON, CMP, CBC #### [facility] [address] [place], [place] [address] IRON AND TIBC Collected: 05/25/2017 Status: F Source: [place] 2:10 PM [facility] REPOSITORY TYPE CODE TESTS RESULT OUT OF REFERENCE UNITS RANGE LAB IRN 41-186 ug/dL Iron 51 LAB TIBC 232-386 ug/dL TIBC 318 LAB SAT 15-57 % Transferrin Saturatn 16 Performed By: #### FERR, IRON, CMP, CBC #### [facility] [address] [place], [place] [address] COMP METABOLIC PANEL Collected: 05/25/2017 Status: F Source: [place] 2:10 PM [facility] REPOSITORY TYPE CODE TESTS RESULT OUT OF REFERENCE UNITS RANGE LAB TP 6.3-8.0 g/dL Protein, Total 6.9 LAB ALB 3.9-4.9 g/dL Albumin 4.1 LAB CA 8.5-10.2 mg/dL Calcium, Total 9.3 LAB TBIL 0.2-1.3 mg/dL Bilirubin, Total 0.3 LAB ALKP 36-108 U/L Alkaline Phosphatase 95 LAB AST 14-40 U/L AST 32 LAB GLU 74-99 mg/dL Glucose 77 Result Comment: The [place] Diabetes Association (ADA) provides guidance for cutoff [...] Standards of Medical Care in Diabetes 2016, [place] Diabetes Association. Diabetes Care. 2016.39(Suppl 1). LAB [...] By: #### FERR, IRON, CMP, CBC #### [facility] [address] [place], [place] [address] CBC Collected: 05/25/2017 Status: F Source: [place] 2:10 PM [facility] [place] REPOSITORY TYPE CODE TESTS RESULT OUT OF [...] By: #### FERR, IRON, CMP, CBC #### [facility] [address] [place], [place] [address] PROGRESS Observed: 05/25/2017 Status: COMPLETED Source: [place] 1:43 PM [facility] REPOSITORY HNO ID: [id number] Author: Daquan Flores III Service: (none) Author Type: Physician Type: Progress Notes Filed: 05/25/2017 9:27 PM Note Text: SUBJECTIVE: This is a 72 year old male that is here today for Chronic Medical Conditions. 1. COPD--no cough. 2. depression--stable mood. Denies depression 3. MS--stable. 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 4. still has PEG tube --working well. Gets protein supplement with water every AM. PAST MEDICAL HISTORY Diagnosis Date - Abnormality of gait 10/10/2008 - ANEMIA IRON DEF, CHR BLOOD LOSS 07/09/2007 last hb normal 2011 - Anemia, unspecified - Buttock wound - Cervical disc disorder with radiculopathy 03/13/2016 - COPD (chronic obstructive pulmonary disease) ([facility]) - Degeneration of cervical intervertebral disc 09/16/2007 - Depressive disorder, not elsewhere classified 09/25/2010 - Displacement of lumbar intervertebral disc without myelopathy 10/10/2008 - Duodenal ulcer, unspecified as acute or chronic, without hemorrhage, perforation, or obstruction - Dysphagia, unspecified(787.20) 09/26/2009 - GOUT NOS 09/16/2007 - HTN (hypertension) - MS (multiple sclerosis) ([facility]) Dr. Hernandez in [place] - Osteitis deformans [...] cream Apply to affected area twice daily. 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 4. still has PEG tube --working [...] - HTN (hypertension) - MS (multiple sclerosis) ([facility]) Dr. Hernandez in [place] - Osteitis deformans [...] cream Apply to affected area twice daily. [place]-3 Fatty Acids (FISH OIL) 500 mg ORAL [...] III MD Referring Provider: DAQUAN FLORES III [[id number]] Allergies As of Date: 05/25/2017 Noted Allergy Reaction HCTZ (THIAZIDES) 10/24/2013 14 - Other: See Comments Comments: nocturia, frequency Date Reviewed: 11/24/2016 Reviewed by: Sully Marcelino Ma - Fully Assessed Reason for Visit: 6 month office visit [Other] Primary Visit Diagnosis:MS (multiple sclerosis) ([facility]) [G35] Other Visit Diagnoses:Mixed simple and mucopurulent chronic bronchitis ([facility]) [J41.8] Iron deficiency anemia, unspecified iron deficiency anemia type [D50.9] Order(s):CBC [SQCBC] Order #: [id number] FUTURE IRON + TIBC [SQIRON] Order #: [id number] FUTURE FERRITIN BLD [SQFERR] Order #: [id number] FUTURE COMP METABOLIC PANEL [SQCMP] Order #: [id number] FUTURE Prescriptions as of 05/25/2017 Sig: DULOXETINE [...] SEVERITY SOURCE 03/25/2018 Drug hydrochlorothiaz Unknown Unknown [facility] Allergy/416 tee/[id number]([facility] 467721(SNOM XNORM) Repository ED CT) 10/24/2013 Drug THIAZIDES OTHER: SEE C [facility] Class/[address] [facility] 1003(SNOMED Repository CT) ENCOUNTERS ENCOUNTERS ADMIT/DISCHARGE ACCOUNT ADMITTING ENCOUNTER LOCATION SOURCE NUMBER CLASS 03/29/2018 [id number] Salas, Inpatient Michelle St Encounter [facility] ing:RURoom: Repository BM687Cbe: 1 03/29/2018 [id number] Josue, Ambulatory BMSBuilding:[address] [facility] Repository 03/26/2018/03/29/19 [id number] Sementi, Inpatient [place] Encounter [facility] ing:SH1Tkdm: Repository ON201Yot: 1 03/26/2018 [id number] Sementi, Ambulatory BMSBuilding:Denzel Kumari [facility] Repository 03/26/2018 [id number] Sementi, Ambulatory BMSBuilding:Denezl Kumari [place].[facility] Repository 03/26/2018 [id number] Sementi, Ambulatory BMSBuilding:Denzel Kumari [place].[facility] Repository 03/26/2018 [id number] Sementi, Ambulatory BMSBuilding:Denzel Kumari [place] Repository 03/25/2018 [id number] Sementi, Ambulatory BMSBuilding:Denzel Kumari [facility] Repository 03/16/2018/03/18/19 [id number] Ambulatory [address] Repository 03/04/2018/03/04/20 [id number] Ambulatory [place] [address] [facility] Repository 03/04/2018/03/04/20 [id number] Ambulatory [place] 18 [facility] Repository 01/08/2018/01/09/20 [id number] Ambulatory BMSBuilding:Denzel Martinez 18 [facility] Repository 11/30/2017/12/02/19 [id number] Ambulatory [address] Repository 11/11/2017/11/12/19 [id number] Ambulatory [address] Repository 06/24/2017/06/25/19 [id number] Ambulatory BMSBuilding:Denzel Martinez 18 [facility] Repository 06/23/2017 [id number] Ambulatory BMSBuilding:Denzel Martinez [facility] Repository 05/25/2017/05/26/19 [id number] Ambulatory [address] Repository 05/25/2017/05/27/19 [id number] Ambulatory [address] Repository PAYERS PAYERS ENCOUNTER GUARANTOR PAYER SUBSCRIBER SOURCE 03/29/2018 PETE A Primary PETE A [place] [id number] Insurance:MEDICARE MOWRERDOB: Community [facility]ING [facility] [id number] Number: Repository [address]Irv: 330 [id number] [phone] () Date:2018-03-29 03/29/2018 Secondary PETE A [place] Insurance:AARPPolicy MOWRERDOB: [facility] Number: [id number] Hospital [id number] Repository Date:7536-41-32[address], [place] [address]HT: 03/29/2018 Tertiary NOT GIVENUNK [place] Insurance:SELF PAY [facility]: Effective Repository Date:2018-03-29 03/29/2018 PETE A Primary PETE A [place] [id number] Insurance:MEDICARE MOWRERDOB: Community BLESSING PART A [facility] [id number], [place] Number: Repository [address]Wma: 330 [id number] [phone] () Date:2018-03-29 03/29/2018 Secondary PETE A [place] Insurance:AARPPolicy MOWRERDOB: Community Number: [id number] Hospital [id number] Repository Date:9102-11-87[address], [place] [address]BN: 03/29/2018 Tertiary NOT GIVENUNK [place] Insurance:SELF PAY [facility] Number: Effective Repository Date:2018-03-29 03/26/2018 PETE A Primary PETE A [place] [id number] Insurance:MEDICARE MOWRERDOB: Community BLESSING PART A [facility] [id number], [place] Number: Repository [address]Bim: 330 [id number] [phone] () Date:2018-03-25 03/26/2018 Secondary PETE A [place] Insurance:AARPPolicy MOWRERDOB: Community Number: [id number] Hospital [id number] Repository Date:8090-63-60AD [address], [place] [address]QA: 03/26/2018 Tertiary NOT GIVENUNK [place] Insurance:SELF PAY [facility] Number: Effective Repository Date:2018-03-25 03/26/2018 PETE A Primary PETE A [place] [id number] Insurance:MEDICARE MOWRERDOB: Community BLESSING PART A [facility] [id number] Number: Repository [address]Vsu: 330 [id number] [phone] () Date:2018-03-25 03/26/2018 Secondary PETE A [place] Insurance:AARPPolicy MOWRERDOB: Community Number: [id number] Hospital [id number] Repository Date:3522-76-82NN [address], [place] [address]KC: 03/26/2018 Tertiary NOT GIVENUNK [place] Insurance:SELF PAY Community [facility] Number: Effective Repository Date:2018-03-26 03/26/2018 PETE A Primary PETE A [place] [id number] Insurance:MEDICARE MOWRERDOB: Community BLESSING PART A [facility] [id number], [place] Number: Repository [address]Oku: 330 [id number] [phone] () Date:2018-03-25 03/26/2018 Secondary PETE A [place] Insurance:AARPPolicy MOWRERDOB: Community Number: [id number] Hospital [id number] Repository Date:2502-00-99[address]F [address], [place] [address]TQ: 03/26/2018 Tertiary NOT GIVENUNK [place] Insurance:SELF PAY [facility] Number: Effective Repository Date:2018-03-26 03/26/2018 PETE A Primary PETE A [place] [id number] Insurance:MEDICARE MOWRERDOB: Community BLESSING PART A [facility] [id number] Number: Repository [address]Nbo: 330 [id number] [phone] () Date:2018-03-25 03/26/2018 Secondary PETE A [place] Insurance:AARPPolicy MOWRERDOB: Community Number: [id number] Hospital [id number] Repository Date:8299-65-52[address] [address], [place] [address]MT: 03/26/2018 Tertiary NOT GIVENUNK [place] Insurance:SELF PAY [facility] Number: Effective Repository Date:2018-03-26 03/26/2018 PETE A Primary PETE A [place] [id number] Insurance:MEDICARE MOWRERDOB: Community BLESSING PART A [facility] [id number] Number: Repository [address]Ykb: 330 [id number] [phone] () Date:2018-03-25 03/26/2018 Secondary PETE A [place] Insurance:AARPPolicy MOWRERDOB: Community Number: [id number] Hospital [id number] Repository Date:2748-59-55PE [address], [place] [address]DU: 03/26/2018 Tertiary NOT GIVENUNK [place] Insurance:SELF PAY Community [facility] Number: Effective Repository Date:2018-03-26 03/25/2018 PETE A Primary PETE A [place] [id number] Insurance:MEDICARE MOWRERDOB: Community BLESSING PART A [facility] [id number], [place] Number: Repository [address]Rqz: 330 [id number] [phone] () Date:2018-03-25 03/25/2018 Secondary PETE A [place] Insurance:AARPPolicy MOWRERDOB: Community Number: [id number] Hospital [id number] Repository Date:3358-38-44[address]XX[place]TSID, [place] [address]AW: 03/25/2018 Tertiary NOT GIVENUNK [place] Insurance:SELF PAY [facility] Number: Effective Repository Date:2018-03-25 01/08/2018 PETE [id number] Primary PETE MOWRERDOB: [place] BLESSING Insurance:MEDICARE [id number] PART A [facility] [id number]: (330) Number: Repository [phone] () [id number] Date:2017-12-23 01/08/2018 Secondary PETE MOWRERDOB: [place] Insurance:AARPPolicy [id number] Community Number: [facility] [id number] Repository Date:7058-27-97JZ [address], [place] [address]ZV: 01/08/2018 Tertiary NOT GIVENUNK [place] Insurance:SELF PAY [facility] Number: Effective Repository Date:2017-12-23 06/24/2017 PETE DANG323 Primary PETE MOWRERDOB: [place] BLESSING Insurance:MEDICARE [id number] PART A [facility] [address]Wsg: (360) Number: Repository [phone] () [id number] Date:2017-06-23 06/24/2017 Secondary PETE MOWRERDOB: [place] Insurance:AARPPolicy [id number] Community Number: Hospital [id number] Repository Date:9598-96-36VW [facility] [address]44[address], [place] [address]FI: 06/24/2017 Tertiary NOT GIVENUNK [place] Insurance:SELF PAY [facility] Number: Effective Repository Date:2017-06-24 06/23/2017 PETE [id number] Primary Insurance:MMO PETE MOWRERDOB: [place] BLESSING [facility] [id number], [place] Number: Hospital [id number]: ([phone] [id number] Repository [phone] () Date:1618-30-52SY [address] [place] [address]QS: 06/23/2017 Secondary NOT GIVENUNK [place] Insurance:SELF PAY Community [facility] Number: Effective Repository Date:2017-06-23
== END 2018-04-14 12:00 | disposition home or self-care (01) | DRG 947 ==
PROVIDERS: Admitting Provider Psychiatry & Neurology Neurology; Family Provider Family Medicine; PCP Family Medicine; Referring Provider Psychiatry & Neurology Neurology
DX: R53.81 Other malaise (principal); E43 Unspecified severe protein-calorie malnutrition; G35 Multiple sclerosis; Z93.1 Gastrostomy status; J44.9 Chronic obstructive pulmonary disease, unspecified; Z87.891 Personal history of nicotine dependence; Z68.21 Body mass index [BMI] 21.0-21.9, adult; F32.9 Major depressive disorder, single episode, unspecified; I10 Essential (primary) hypertension; K21.9 Gastro-esophageal reflux disease without esophagitis; N40.0 Benign prostatic hyperplasia without lower urinary tract symptoms; Z87.09 Personal history of other diseases of the respiratory system; Z86.19 Personal history of other infectious and parasitic diseases
CPT/HCPCS: 94640; 97110; 97112; 97116; 97162; 97166; 97530; 97535; 97803

== ENCOUNTER 2018-07-29 20:45 | Inpatient (IN) | payer MEDICARE, OTHER, SELFPAY ==
[2018-07-29] VITALS (11 sets, daily range): BP systolic 111–148; BP diastolic 66–88; PULSE 107–118; RESP 12–30; TEMP 38.2–38.6; O2SAT 89–94; BMI 21.2
--- NOTE | 2018-07-29 21:14 | EKG12_ITS ---
Test Reason : SOB Blood Pressure : / mmHG Vent. Rate : 112 BPM Atrial Rate : 112 BPM P-R Int : 136 ms QRS Dur : 094 ms QT Int : 316 ms P-R-T Axes : 079 068 081 degrees QTc Int : 431 ms Sinus tachycardia Otherwise normal ECG Confirmed by YOBANI BLOOM ([id number]), video effects editor TATE WALLACE ([id number]) on 08/05/2018 8:46:37 AM Referred By: Confirmed By:YOBANI BLOOM
--- NOTE | 2018-07-29 21:14 | CT_ITS ---
STUDY: CT BRAIN WITHOUT CONTRAST REASON FOR EXAM: Male, 73 years old. Mental status change. RADIATION DOSAGE (If Supplied By Facility): CTDIvol = ( 44.99 ) mGy, DLP = ( 846.73 ) mGycm TECHNIQUE: Transaxial CT imaging of the brain was performed without administration of intravenous contrast material. Individualized dose optimization techniques were used for this CT. COMPARISON: No relevant priors. FINDINGS: There is no definite acute abnormality. There is diffuse mild symmetric atrophy. There is atrophy of the posterior fossa structures. There is diffuse small vessel ischemic disease of the white matter. There is no definite acute infarct. There is no bleed. There is no gross mass, mass effect, or midline shift. There is no acute abnormality of the skull. No fractures. Grossly normal orbits. Grossly normal sinuses. CT/Brain/Head without Contrast IMPRESSION: Chronic age related changes and atrophy. No acute abnormality. Electronically Signed: Sy Moss MD at 22:53 EDT , Service support ,
--- NOTE | 2018-07-29 21:20 | ED.VISSUMM ---
- ER Visit Summary Date of Service: 07/29/18 Chief Complaint: Shortness of breath, fatigue History of Present Illness: The patient is a 73 M presenting with shortness of breath, fatigue. Family states that he has been weak over the past few days. He had some confusion earlier today. When they came to check on him later today he had a grayish color. His pulse ox was low at home. He denies chest pain. He complains of feeling ill with body aches all over. He has a history of MS, COPD, hypertension. Physical Examination: Blood pressure 148/88, temperature 100.8, heart rate 118, respiratory rate 26. Alert moderate acute distress. HEENT exam dry mucous membranes Neck is supple. Lungs are diminished bilaterally. Heart is regular tachycardic Abdomen is soft nontender nondistended. Feeding tube in place Extremities are unremarkable. Skin is warm and dry. Chronic left lower extremity weakness Remainder of exam is unremarkable. Emergency Department Course and Treatment: Patient was started on noninvasive ventilation on arrival. EKG is sinus tachycardia rate of 112. CBC showed white count 17.4. Chemistries unremarkable other than BUN 21. INR 1.1. Urinalysis unremarkable. Troponin is negative. Lactic acid is normal. Chest x-ray shows severe COPD and pulmonary hypertension. Bilateral basilar infiltrates. Blood cultures were sent. He was given Rocephin and Zithromax IV. CT head was obtained and shows no acute process. Tegretol level 8.4. On reevaluation, patient is improved on noninvasive ventilation. He is answering questions appropriately. His POA is at bedside and confirms DNR CCA status with no intubation. Discussed with the hospitalist for admission. Disposition: Admission Impression: Respiratory failure, community acquired pneumonia This note was generated with [employer] dictation software. It may contain incorrect words, spelling, and punctuation that were not noted in review of the chart prior to signing ED Disposition - Plan for ED Patient: Referrals: Mario Giraldo MD [Primary Care Provider] -
[2018-07-29] MEDS: Albuterol 2.5 MG/3 ML VIAL.NEB. INHALATION ×2 (21:30)
[2018-07-29] MEDS: Ipratropium/Albuterol Sulfate 3 ML AMPUL.NEB INHALATION (21:31)
[2018-07-29 21:40] LABS: Bacteria 0 SEEN /hpf (None Seen); Mucous, Urine 0 SEEN /hpf (<or=2+)
--- NOTE | 2018-07-29 21:40 | RAD_ITS ---
STUDY: X-RAY CHEST REASON FOR EXAM: Male, 73 years old. Shortness of breath TECHNIQUE: Single AP portable view of the chest. COMPARISON: 03/25/2018 FINDINGS: There is hyperinflation of the lungs consistent with chronic obstructive lung disease (COPD). Bilateral lower lobe infiltrates are seen most consistent with pneumonia. No effusions. There is no demonstrated pleural abnormality. Normal size heart. Normal mediastinum and rodriguez. There is prominence of the pulmonary hilar arteries without peripheral pulmonary vascular congestion, suggesting pulmonary hypertension. Normal visualized aortic arch and descending thoracic aorta. Normal visualized thoracic spine. There is degenerative osteoarthritis of the bilateral shoulders. There is no demonstrated abnormality of the visualized soft tissue structures of the upper abdomen. RAD/Chest 1 View (Portable) IMPRESSION: Severe COPD and pulmonary hypertension. Bilateral basilar infiltrates. Electronically Signed: Sy Moss MD at 22:10 EDT , Service support ,
[2018-07-29 21:45] LABS: Absolute Lymphocyte Count 0.62 X10^3/ul (0.83-4.51); Basophil# 0.02 X10^3/uL; Basophil% 0.1 % (0-1); Hematocrit 40.9 % (40-54); Hemoglobin 13.7 g/dl (13.0-16.5); Lymphocyte # 0.62 X10^3/ul (4.0); Lymphocyte % 3.6 % (19-41); Mean Corp Hgb Conc 33.5 g/gl (32-36); Mean Corpuscular Hgb 28.8 pg (27.0-32.0); Mean Corpuscular Volume 86.1 fL (80-94); Monocyte# 0.75 X10^3/uL; Monocyte% 4.3 % (0-10); Neutrophil # 15.98 X10^3/uL (2.7-7.7); Neutrophil % 91.8 % (47-70); Platelet Count 291 K/mm3 (150-450); RBC Distribution Width CV 15.8 % (11.6-14.6); RBC Distribution Width SD 49.9 fl (35.1-43.9); Red Blood Count 4.75 M/mm3 (4.6-6.2); White Blood Count 17.4 K/mm3 (4.4-11.0)
[2018-07-29 21:47] LABS: POSITIVE COUNT NO; POSITIVE DIFFERENTIAL NO; POSITIVE MORPHOLOGY NO
[2018-07-29 21:50] LABS: Allen Test POS; Base Excess 1 mmol/L (-2 to +2); Bicarbonate 25.2 mmol/L (22-26); Blood Gas Specimen Type ART; EPAP 6; FI02 40; IPAP 12; PO2 53 mmHG (75-100); SITE L Radial; SO2 89 % (95-99); Time Given 2140; Total Carbon Dioxide 26 mmol/L; pCO2 37.2 mmHg (35-45); pH 7.44 (7.35-7.45)
[2018-07-29 21:53] LABS: International Normalized Ratio 1.1
[2018-07-29 21:58] LABS: Anion Gap 8 (5-15); BUN 21 mg/dL (7-18); BUN/Creat Ratio 27.5 RATIO (10-20); Calcium,Total 9.3 mg/dL (8.5-10.1); Chloride 96 mmol/L (98-107); Creatinine, Serum 0.76 mg/dL (0.70-1.30); EST Glomerular Filtration Rate 107 mL/min (>60); Est Glom Filt Rate - Afr Amer 129 mL/min (>60); Estimated Creatinine Clearance 61.67 ml/min; Glucose 99 mg/dL (74-106); Potassium 3.9 mmol/L (3.5-5.1); Sodium Level 134 mmol/L (136-145)
[2018-07-29 22:12] LABS: Color, Urine Yellow (Yellow); Glucose, Dipstick Normal (Normal); Ketone-Dipstick 15 mg/dl (Negative); Leukocyte Esterase-Dipstick 25 /ul (Negative); Nitrite-Dipstick Negative (Negative); Occult Blood-Urine 50 /ul (Negative); Protein-Dipstick 30 mg/dl (Negative); Specific Gravity, Urine 1.015 (1.002-1.030); Urine Bilirubin Dipstick Negative (Negative); Urine Clarity Sl. Cloudy (Clear); Urine Urobilinogen Normal (Normal); Urine pH 6.5 (5.0 - 8.0)
[2018-07-29 22:24] LABS: Lactic Acid 1.6 mmol/L (0.4-2.0)
[2018-07-29 22:27] LABS: Red Blood Cells-Urine 0-5 SEEN /hpf (0-5); Squamous Epithelial Cells - UA 0-5 SEEN /hpf (0-5); White Blood Cells 0-5 SEEN /hpf (0-5)
[2018-07-29 22:28] LABS: Amorphous Sediment 1+ URATE
[2018-07-29 22:34] LABS: Carbamazepine (Tegretol) 8.4 ug/mL (4.0-12.0)
[2018-07-29] MEDS: Ceftriaxone 1 GM/50 ML BAG IV (22:35)
--- NOTE | 2018-07-29 23:16 | HP.PCM_ITS ---
Problem List (1) Bilateral pneumonia Status: Acute (2) Acute respiratory failure with hypoxia Status: Acute (3) COPD exacerbation Status: Acute (4) Depression Status: Chronic Qualifiers: (5) Physical debility Status: Chronic (6) Hypertension Status: Chronic Qualifiers: (7) COPD (chronic obstructive pulmonary disease) Status: Chronic (8) Multiple sclerosis Status: Chronic (9) Acute respiratory failure Status: Acute (10) Dysphagia Status: Chronic Qualifiers: (11) Anemia Status: Chronic (12) BPH (benign prostatic hypertrophy) Status: Chronic (13) Vitamin D deficiency Status: Chronic (14) GERD (gastroesophageal reflux disease) Status: Chronic Qualifiers: (15) Ulcerative esophagitis Status: Chronic (16) Gout Status: Chronic Qualifiers: History of Present Illness Date of Admission: 07/29/18 Chief Complaint: Shortness of breath and decreased mentation for last 2 days The patient is a 73 year old M with multiple comorbidities as listed below was brought into ER for increased respiratory distress, weakness, decreased oral intake and confusion for last 2 days. As per his ex- Ms. Whiting, power of clinical data manager, he was at his normal baseline 2 days ago, on Thursday. After that, he was more confused, lost appetite and difficulty breathing. Patient is not on oxygen at home. In ED, was found febrile 100.9 Fahrenheit, tachycardic, tachypneic and hypoxic and was damian/pale in color. Patient was put on BiPAP and his oxygenation improved. His blood work shows leukocytosis 17.4 thousand with left shift, 91% neutrophils. ABG 7.44/30 7/53 on 40% FiO2 12/6. UA shows no pyuria, no RBC, LE 25. Chest x-ray shows bilateral lower lobe infiltrate. The patient was given ceftriaxone and azithromycin. [] Past Medical History Past Medical History (Chronic Problems): Chronic Problems (Last Reviewed 04/27/18 @ 14:37 by Seema Posadas) Depression (Chronic) Physical debility (Chronic) Hypertension (Chronic) COPD (chronic obstructive pulmonary disease) (Chronic) Multiple sclerosis (Chronic) Dysphagia (Chronic) Anemia (Chronic) BPH (benign prostatic hypertrophy) (Chronic) Vitamin D deficiency (Chronic) GERD (gastroesophageal reflux disease) (Chronic) Ulcerative esophagitis (Chronic) Gout (Chronic) Medical History: Medical History (Last Reviewed 04/27/18 @ 14:37 by Seema Posadas) Depression (Chronic) F32.9 Physical debility (Chronic) R53.81 Hypertension (Chronic) I10 COPD (chronic obstructive pulmonary disease) (Chronic) J44.9 Multiple sclerosis (Chronic) G35 Acute respiratory failure (Acute) J96.00 Dysphagia (Chronic) R13.10 Anemia (Chronic) D64.9 BPH (benign prostatic hypertrophy) (Chronic) N40.0 Vitamin D deficiency (Chronic) E55.9 GERD (gastroesophageal reflux disease) (Chronic) K21.9 Ulcerative esophagitis (Chronic) K22.10 Gout (Chronic) M10.9 Normal colonoscopy Open wound of buttock, complicated S31.809A Empyema of right pleural space (Resolved) J86.9 PEG (percutaneous endoscopic gastrostomy) adjustment/replacement/removal (Resolved) Z43.1 Allergies hydrochlorothiazide Allergy (Verified 07/29/18 20:57) Unknown Home Medications: Ambulatory Orders Medication Instructions Recorded Cholecalciferol (VIT D3) [Vitamin 5,000 unit PO DAILY 02/20/14 D3] Calcium Carbonate 500 mg PO DAILY 04/19/16 Glatiramer Acetate [Copaxone] 40 mg SQ MOWEFR 04/19/16 coenzyme Q 10 10 mg capsule 100 mg PO ONCE 02/19/17 lansoprazole 30 mg capsule,delayed 30 mg PO DAILY 02/19/17 release ipratropium-albuterol 0.5 mg-3 3 ml INHALATION TID #180 ml 03/24/17 mg(2.5 mg base)/3 mL nebulization soln budesonide 0.5 mg/2 mL suspension 0.5 mg INHALATION QDAY #60 ml 03/25/17 for nebulization Albuterol Sulfate [Proventil Hfa] 6.7 gm IH Q4H PRN 03/25/18 Amlodipine [Norvasc] 5 mg PO DAILY 03/25/18 Duloxetine Hcl [Cymbalta] 60 mg PO DAILY 03/25/18 Ensure Enlive 237 ml GT QHS 03/25/18 Losartan Potassium [Cozaar] 100 mg PO DAILY 03/25/18 Vitamin B Comp W-C [Allbee W/C 1 cap PO DAILY MDD \ 03/25/18 Caplet, Thera B Comp/C] Dalfampridine [Ampyra] 10 mg PO BID@0900,2100 03/29/18 Prednisone [Deltasone] 40 mg PO DAILY 03/29/18 carbamazepine 100 mg chewable 150 mg PO BID tab 04/27/18 tablet Carbamazepine [Tegretol] 100 mg PO BIDCM 07/29/18 Dronabinol [Marinol] 2.5 mg PO BID 07/29/18 Multivitamin [Once Daily] 1 each PO DAILY 07/29/18 Surgical History: Surgical History (Last Reviewed 04/27/18 @ 14:37 by Seema Posadas) History of esophagogastroduodenoscopy (EGD) Z98.890 S/P percutaneous endoscopic gastrostomy (PEG) tube placement Z93.1 Surgical History: - - Back surgery x2 (thoracic and cervical) Psychiatric History: Depression Smoking Status: Former smoker - *Family History Maternal Family History: Family History (Last Reviewed 04/27/18 @ 14:37 by Seema Posadas) Mother Colon cancer Breast cancer Lung cancer Father CAD (coronary artery disease) Heart disease History Items: Cancer - 70's Paternal Family History: Family History (Last Reviewed 04/27/18 @ 14:37 by Seema Posadas) Mother Colon cancer Breast cancer Lung cancer Father CAD (coronary artery disease) Heart disease History Items: Heart Disease - age 70's Review of Systems Constitutional: Reports: Anorexia, Chills, Fever, Weakness, Fatigue HEENT: Denies: Head Aches, Sinus Congestion, Sinus Drainage Cardiovascular: Denies: Chest Pain, Palpitations Respiratory: Reports: Shortness of Breath, Shortness of breath at rest, Shortness of breath upon exertion, Wheezing. Denies: Cough, Sputum production Gastrointestinal: Denies: Abdominal Pain, Nausea, Vomiting Genitourinary: Reports: Incontinence. Denies: Dysuria, Frequency Musculoskeletal: Reports: Joint Pain. Denies: Joint Tenderness Skin: Denies: Rash, Wounds Neurological: Reports: Balance problems, Incoordination. Denies: Focal weakness, Numbness, Tingling Psychiatric: Denies: Anxiety, Depression, Homicidal Ideations, Suicidal Ideations Hematologic/ Lymphatic: Denies: Easy Bruising, Easy Bleeding Unable to obtain accurate/complete ROS d/t: Patient is confused and disoriented VTE Information - Inpt Only VTE Present on Admission: No VTE Mechan Device Prophylaxis: None VTE Pharm Prophylaxis ordered?: Yes Patient Problems: Active and Suspected Problems (Last Reviewed 04/27/18 @ 14:37 by Seema Posadas) Bilateral pneumonia (Acute) Acute respiratory failure with hypoxia (Acute) COPD exacerbation (Acute) - Physical Exam General: Confused, Disoriented, Lethargic HEENT: Atraumatic, PERRLA, EOMI, Normocephalic Oral: - - On BiPAP machine Neck: Supple, No JVD, Negative Carotid Bruits Lungs: Diminished, Rales, Rhonchi, Short of Breath, Tachypneic, Using Accessory Muscles Cardiovascular: Regular Rhythm, Normal S1, Normal S2, No murmurs, Tachycardic Abdomen: Bowel Sounds Present, Soft, Non Tender, - - PEG tube Extremities: No edema, Capillary Refill Less than 3 Seconds Skin: No rashes Musculoskeletal: No Tenderness to Palpation of Joints or Extremities, Arthritic Changes, Muscle Wasting Lymphatic: No Cervical, Supraclavicular, or Inguinal Adenopathy Neurological: - - Paraplegia. Wheelchair dependent. Arthritis of ankle joint and toes Vital Signs Temp Pulse Resp BP Pulse Ox 100.9 F H 111 H 25 H 119/71 94 07/29/18 22:00 07/29/18 22:00 07/29/18 22:00 07/29/18 22:00 07/29/18 22:00 Oxygen Flow Rate (L/min) 40 Oxygen Delivery Method Bi-pap Weight: 143 lb 15.39 oz Body Mass Index (BMI) 21.2 Laboratory Tests Past 24 Hrs 07/29/18 07/29/18 07/29/18 21:05 21:05 21:21 WBC 17.4 H RBC 4.75 Hgb 13.7 Hct 40.9 MCV 86.1 MCH 28.8 MCHC 33.5 RDW 15.8 H RDW Differential 49.9 H Plt Count 291 MPV 10.0 Immature Gran % (Auto) 0.200 Neut % (Auto) 91.8 H Lymph % (Auto) 3.6 L Williams % (Auto) 4.3 Eos % (Auto) 0.0 Baso % (Auto) 0.1 Absolute Neuts (auto) 16.0 H Absolute Lymphs (auto) 0.62 L Total Counted Not Reportable PT 14.0 INR 1.1 Specimen Type Sample Site pH Bicarbonate Actual POC Total CO2 Base Excess O2 Saturation O2 % ABG pCO2 ABG pO2 Sha Test O2 Delivery Device EPAP IPAP Blood Gas Notified Whom Blood Gas Notified Time Sodium 134 L Potassium 3.9 Chloride 96 L Carbon Dioxide 30.0 Anion Gap 8 BUN 21 H Creatinine 0.76 Estim Creat Clear Calc 61.67 Est GFR (MDRD) Af Amer 129 Est GFR (MDRD) Non-Af 107 BUN/Creatinine Ratio 27.5 H Glucose 99 Lactic Acid Calcium 9.3 Troponin I < 0.015 Urine Color Urine Clarity Urine pH Ur Specific [place] Urine Protein Urine Glucose (UA) Urine Ketones Urine Occult Blood Urine Nitrite Urine Bilirubin Urine Urobilinogen Ur Leukocyte Esterase Urine RBC Urine WBC Ur Squamous Epith Cells Amorphous Sediment Urine Bacteria Urine Mucus Carbamazepine 07/29/18 07/29/18 07/29/18 21:21 21:21 21:35 WBC RBC Hgb Hct MCV MCH MCHC RDW RDW Differential Plt Count MPV Immature Gran % (Auto) Neut % (Auto) Lymph % (Auto) Williams % (Auto) Eos % (Auto) Baso % (Auto) Absolute Neuts (auto) Absolute Lymphs (auto) Total Counted PT INR Specimen Type Sample Site pH Bicarbonate Actual POC Total CO2 Base Excess O2 Saturation O2 % ABG pCO2 ABG pO2 Sha Test O2 Delivery Device EPAP IPAP Blood Gas Notified Whom Blood Gas Notified Time Sodium Potassium Chloride Carbon Dioxide Anion Gap BUN Creatinine Estim Creat Clear Calc Est GFR (MDRD) Af Amer Est GFR (MDRD) Non-Af BUN/Creatinine Ratio Glucose Lactic Acid 1.6 Calcium Troponin I Urine Color Yellow Urine Clarity Sl. Cloudy Urine pH 6.5 Ur Specific [place] 1.015 Urine Protein 30 H Urine Glucose (UA) Normal Urine Ketones 15 H Urine Occult Blood 50 H Urine Nitrite Negative Urine Bilirubin Negative Urine Urobilinogen Normal Ur Leukocyte Esterase 25 H Urine RBC 0-5 SEEN Urine WBC 0-5 SEEN Ur Squamous Epith Cells 0-5 SEEN Amorphous Sediment 1+ URATE Urine Bacteria 0 SEEN Urine Mucus 0 SEEN Carbamazepine 8.4 07/29/18 21:47 WBC RBC Hgb Hct MCV MCH MCHC RDW RDW Differential Plt Count MPV Immature Gran % (Auto) Neut % (Auto) Lymph % (Auto) Williams % (Auto) Eos % (Auto) Baso % (Auto) Absolute Neuts (auto) Absolute Lymphs (auto) Total Counted PT INR Specimen Type ART Sample Site L Radial pH 7.44 Bicarbonate Actual 25.2 POC Total CO2 26 Base Excess 1 O2 Saturation 89 L O2 % 40 ABG pCO2 37.2 ABG pO2 53 L Sha Test POS O2 Delivery Device Bi / C PAP EPAP 6 IPAP 12 Blood Gas Notified Whom ED Blood Gas Notified Time 2139 Sodium Potassium Chloride Carbon Dioxide Anion Gap BUN Creatinine Estim Creat Clear Calc Est GFR (MDRD) Af Amer Est GFR (MDRD) Non-Af BUN/Creatinine Ratio Glucose Lactic Acid Calcium Troponin I Urine Color Urine Clarity Urine pH Ur Specific [place] Urine Protein Urine Glucose (UA) Urine Ketones Urine Occult Blood Urine Nitrite Urine Bilirubin Urine Urobilinogen Ur Leukocyte Esterase Urine RBC Urine WBC Ur Squamous Epith Cells Amorphous Sediment Urine Bacteria Urine Mucus Carbamazepine Assessment/Plan All Active Problems (Last Reviewed 04/27/18 @ 14:37 by Seema Posadas) Bilateral pneumonia (Acute) Acute respiratory failure with hypoxia (Acute) COPD exacerbation (Acute) Acute respiratory failure (Acute) Empyema of right pleural space (Resolved) PEG (percutaneous endoscopic gastrostomy) adjustment/replacement/removal (Resolved) The patient is a 73 year old M with multiple comorbidities as listed below was brought into ER for increased respiratory distress, weakness, decreased oral intake and confusion for last 2 days. As per his ex- Ms. Whiting, power of clinical data manager, he was at his normal baseline 2 days ago, on Thursday. After that, he was more confused, lost appetite and difficulty breathing. Patient is not on oxygen at home. In ED, was found febrile 100.9 Fahrenheit, tachycardic, tachypneic and hypoxic and was damian/pale in color. Patient was put on BiPAP and his oxygenation improved. His blood work shows leukocytosis 17.4 thousand with left shift, 91% neutrophils. ABG 7.44/30 7/53 on 40% FiO2 12/6. UA shows no pyuria, no RBC, LE 25. Chest x-ray shows bilateral lower lobe infiltrate. The patient was given ceftriaxone and azithromycin. 1. Acute hypoxic respiratory failure secondary to bilateral pneumonia, most probably aspiration pneumonia and possible COPD exacerbation: Patient is being admitted in PCU. Patient has history of MS and aspiration pneumonia at least twice in the past, one one had possible empyema which required thoracic surgery. Patient has tube feed but usually is only for protein supplement water intake. Pneumonia work-up ordered including blood cultures x2, urinary strep and Legionella antigens, respiratory panel and sputum culture if sputum sample available. 2. COPD exacerbation mostly secondary to pneumonia: On bronchodilator, IV Solu- Medrol, incentive spirometry and chest physiotherapy. 3. MS with physical disability, paraplegia, wheelchair dependent, partial dysphagia on tube feed: PT and OT ordered. Patient is on Copaxone, Tegretol, Cymbalta and Ampyra. Patient has PEG tube. 4. Other chronic comorbidities include GERD, depression, BPH, anemia of chronic disease, history of ulcerative esophagitis and vitamin D deficiency: Home medications reconciliation done. Multiple comorbidities complicates the present care and expect difficult and delay recovery Goal of life/advanced directive/MOLST. Patient's power of clinical data manager is ex- Ms. Whiting. Discussed with the regarding different options, and she agrees for DNR CC arrest. Patient does not want intubation, chest compression or shock. Code Visit Inpatient E&M: 42594 Init Hosp L3
[2018-07-30] VITALS (27 sets, daily range): BP systolic 98–128; BP diastolic 59–79; PULSE 85–108; RESP 12–30; TEMP 36.6–37.7; O2SAT 90–97; BMI 20.4
[2018-07-30] MEDS: 0.9% Normal Saline 1,000 ML 100 ML IV (01:31)
[2018-07-30] MEDS: Enoxaparin 40 MG/0.4 ML Syringe SC (01:31)
[2018-07-30] MEDS: Ipratropium/Albuterol Sulfate 3 ML AMPUL.NEB INHALATION ×5 (04:19→23:47)
[2018-07-30] MEDS: 0.9% NaCl Peripheral Flush Adult/Peds IV ×2 (05:14→23:02)
[2018-07-30 06:39] LABS: International Normalized Ratio 1.1
[2018-07-30 07:18] LABS: ALB/GLOB Ratio 0.6 RATIO (0.9-2.4); AST(SGOT) 28 U/L (15-37); Alanine Aminotransfer ALT/SGPT 37 U/L (16-61); Albumin, Serum 2.5 g/dL (3.2-5.0); Alkaline Phosphatase 102 U/L (45-117); Anion Gap 6 (5-15); BUN 21 mg/dL (7-18); BUN/Creat Ratio 25.9 RATIO (10-20); Calcium,Total 8.7 mg/dL (8.5-10.1); Chloride 100 mmol/L (98-107); Creatinine, Serum 0.81 mg/dL (0.70-1.30); EST Glomerular Filtration Rate 99 mL/min (>60); Est Glom Filt Rate - Afr Amer 120 mL/min (>60); Estimated Creatinine Clearance 73.22 ml/min; Globulin 3.9 g/dL (2.2-4.2); Glucose 102 mg/dL (74-106); Magnesium 1.9 mg/dL (1.6-2.6); Potassium 4.3 mmol/L (3.5-5.1); Protein, Total 6.4 g/dL (6.4-8.2); Sodium Level 135 mmol/L (136-145); Thyroid Stim Hormone (TSH) 2.39 uIU/mL (0.358-3.74)
--- NOTE | 2018-07-30 09:37 | NS ---
Pt's protein drink from home provides 160 calories, 30 g protein per bottle. Pt's estimated nutritional needs: 0045-1716 calories/day and 75-85g protein/day. Protein drinks from home will not meet pt's estimated nutritional needs. If pt to remain NPO, recommend Vital AF 1.2 via PEG at goal rate of 60mL/hour w/ 100mL flush every 4 hours to provide 1728 calories, 108 g protein, and 1767mL total fluid/day to meet pt's estimated nutritional needs. Would start at rate of 20mL/hour and increase by 20mL every 8 hours as pt tolerates until goal rate achieved. Brayan Corbett MS, RDN, LD
--- NOTE | 2018-07-30 10:12 | CASEMGMT ---
Patient has a Healthcare Power of Firing Pin Gauger and a Healthcare Living Will on file at [facility]. Rizwana ARRIAGA MSW
--- NOTE | 2018-07-30 10:25 | CASEMGMT ---
Addendum entered by Cherie العلي 07/30/18 12:41: This RN CM back to room and pt is still sleeping at [facility] and is not at bedside at this time. Will attempt again later or call via phone. Jia KHAN CM Original Note: This RN CM to room to complete CM assessment and pt is sleeping without distress at this time. Pt's is not at bedside at this time. This RN CM will attempt again later. Jia KHAN CM
--- NOTE | 2018-07-30 11:22 | CPS ---
pt decreased to 4 lpm...97%. nurse aware of change
--- NOTE | 2018-07-30 12:40 | PCM.CONS.PUL ---
Reason for Consult Date of Consultation: 07/30/18 Reason for Consultation: Respiratory failure History of Present Illness: The patient is a 73-year-old male, with a history as outlined below, who presented to the emergency department on July 29 with complaints of shortness of breath and fatigue. The patient was last admitted to the hospital in March 2018 with acute hypoxemic respiratory insufficiency secondary to RSV infection. Post discharge, the patient went to rehab and was discharged from there on April 13. The patient has a known history of underlying MS with recurrent aspiration pneumonia. He also has a known history of end-stage COPD based upon pulmonary function testing last completed in 2016. In 2016, the patient was hospitalized here with right lower lobe pneumonia, complicated by the development of an empyema, which required transfer to [facility] for thoracotomy and G-tube placement. On presentation to the emergency department, the patient was noted to be febrile, tachycardic and tachypneic. Laboratory evaluation revealed elevated white blood cell count to 17,000. Troponin was negative. CT head revealed no acute intracranial process. Plain film chest x-ray revealed evidence of bibasilar infiltrates. The patient was immediately started on BiPAP on arrival to the ED. Cultures were obtained. The patient was started on antibiotics. CODE STATUS was confirmed to be DNR CCA without intubation. The patient was subsequently admitted to the progressive care unit for ongoing management. Following admission to the PCU, the patient's antibiotics have been broadened to include Zosyn, given his history of aspiration. He is currently on scheduled bronchodilators and IV steroids. The patient is quite somnolent but will arouse and answer simple questions. 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 He also reports that he does not currently utilize any inhalers in his home environment. He does report that he takes nutrition both by PEG tube and by mouth. Past Medical History Past Medical History (Chronic Problems): Chronic Problems (Last Reviewed 04/27/18 @ 14:37 by Seema Posadas) Depression (Chronic) Physical debility (Chronic) Hypertension (Chronic) COPD (chronic obstructive pulmonary disease) (Chronic) Multiple sclerosis (Chronic) Dysphagia (Chronic) Anemia (Chronic) BPH (benign prostatic hypertrophy) (Chronic) Vitamin D deficiency (Chronic) GERD (gastroesophageal reflux disease) (Chronic) Ulcerative esophagitis (Chronic) Gout (Chronic) Medical History: Medical History (Last Reviewed 04/27/18 @ 14:37 by Seema Posadas) Depression (Chronic) F32.9 Physical debility (Chronic) R53.81 Hypertension (Chronic) I10 COPD (chronic obstructive pulmonary disease) (Chronic) J44.9 Multiple sclerosis (Chronic) G35 Acute respiratory failure (Acute) J96.00 Dysphagia (Chronic) R13.10 Anemia (Chronic) D64.9 BPH (benign prostatic hypertrophy) (Chronic) N40.0 Vitamin D deficiency (Chronic) E55.9 GERD (gastroesophageal reflux disease) (Chronic) K21.9 Ulcerative esophagitis (Chronic) K22.10 Gout (Chronic) M10.9 Normal colonoscopy Open wound of buttock, complicated S31.809A Empyema of right pleural space (Resolved) J86.9 PEG (percutaneous endoscopic gastrostomy) adjustment/replacement/removal (Resolved) Z43.1 Allergies hydrochlorothiazide Allergy (Verified 07/29/18 20:57) Unknown Home Medications: Ambulatory Orders Medication Instructions Recorded Cholecalciferol (VIT D3) [Vitamin 5,000 unit PO DAILY 02/20/14 D3] Glatiramer Acetate [Copaxone] 40 mg SQ MOWEFR 04/19/16 coenzyme Q 10 10 mg capsule 100 mg PO ONCE 02/19/17 lansoprazole 30 mg capsule,delayed 30 mg PO DAILY 02/19/17 release ipratropium-albuterol 0.5 mg-3 3 ml INHALATION TID #180 ml 03/24/17 mg(2.5 mg base)/3 mL nebulization soln budesonide 0.5 mg/2 mL suspension 0.5 mg INHALATION QDAY #60 ml 03/25/17 for nebulization Albuterol Sulfate [Proventil Hfa] 1.25 gm IH Q4H PRN 03/25/18 Amlodipine [Norvasc] 5 mg PO DAILY 03/25/18 Duloxetine Hcl [Cymbalta] 60 mg PO DAILY 03/25/18 Losartan Potassium [Cozaar] 100 mg PO DAILY 03/25/18 Vitamin B Comp W-C [Allbee W/C 1 cap PO DAILY 03/25/18 Caplet, Thera B Comp/C] Dalfampridine [Ampyra] 10 mg PO BID@0900,2100 03/29/18 Carbamazepine [Tegretol] 150 mg PO BIDCM 07/29/18 Dronabinol [Marinol] 2.5 mg PO BID 07/29/18 Multivitamin [Once Daily] 1 each PO DAILY 07/29/18 Acetylcysteine 3 ml INHALATION BID 07/30/18 Calcium Citrate/Vitamin D3 1 each PO BID 07/30/18 [Calcium Citrate with D Tablet] Docusate Sodium [Colace] 250 mg PO BID 07/30/18 Polyethylene Glycol 3350 [Miralax] 17 gm PO DAILY 07/30/18 Theophylline Anhydrous [Torsten-24] 100 mg PO DAILY 07/30/18 Surgical History: Surgical History (Last Reviewed 04/27/18 @ 14:37 by Seema Posadas) History of esophagogastroduodenoscopy (EGD) Z98.890 S/P percutaneous endoscopic gastrostomy (PEG) tube placement Z93.1 Surgical History: - - Back surgery x2 (thoracic and cervical) Psychiatric History: Depression Smoking Status: Former smoker - *Family History Maternal Family History: Family History (Last Reviewed 04/27/18 @ 14:37 by Seema Posadas) Mother Colon cancer Breast cancer Lung cancer Father CAD (coronary artery disease) Heart disease History Items: Cancer - 70's Paternal Family History: Family History (Last Reviewed 04/27/18 @ 14:37 by Seema Posadas) Mother Colon cancer Breast cancer Lung cancer Father CAD (coronary artery disease) Heart disease History Items: Heart Disease - age 70's Review of Systems Constitutional: Reports: Fever, Fatigue Eyes: Denies: Blurred vision, Double vision HEENT: Reports: Difficulty Swallowing, Dysphasia Cardiovascular: Denies: Chest Pain, Palpitations Respiratory: Reports: Cough, Shortness of Breath, Sputum production Gastrointestinal: Denies: Abdominal Pain, Nausea, Vomiting Genitourinary: Denies: Dysuria Musculoskeletal: Denies: Joint Pain, Joint Tenderness Skin: Denies: Rash, Wounds Neurological: Reports: Confusion, Difficulty swallowing Psychiatric: Denies: Anxiety, Depression, Homicidal Ideations, Suicidal Ideations Hematologic/ Lymphatic: Denies: Easy Bruising, Easy Bleeding Patient Problems: Active and Suspected Problems (Last Reviewed 04/27/18 @ 14:37 by Seema Posadas) Bilateral pneumonia (Acute) Acute respiratory failure with hypoxia (Acute) COPD exacerbation (Acute) Objective: The patient's most recent lab work, culture data and imaging studies have all been personally reviewed. Strep and urine Legionella antigens were negative. Blood cultures are pending. - Physical Exam General: - - Arouses to verbal stimulation. Able to answer simple questions with yes/no. Appears quite ill and fatigued. HEENT: Atraumatic, PERRLA, Normocephalic Oral: Dry Mucosa Neck: Supple, No Nodes, Trachea Midline Lungs: Diminished, Rhonchi Cardiovascular: Regular rate, Regular Rhythm, Normal S1, Normal S2, No murmurs Abdomen: Soft, Non Tender, - - + G tube Extremities: No clubbing, No cyanosis, No edema Skin: No breakdown Musculoskeletal: Cachexia, Muscle Wasting Lymphatic: No Cervical, Supraclavicular, or Inguinal Adenopathy Neurological: - - No focal neurological deficits. Poor generalized low muscle tone and strength. Somnolent. Psych/Mental Status: Flat Affect Vital Signs Temp Pulse Resp BP Pulse Ox 98 F 88 18 105/68 96 07/30/18 10:00 07/30/18 10:52 07/30/18 10:52 07/30/18 10:00 07/30/18 10:52 Oxygen Flow Rate (L/min) 6 Oxygen Delivery Method Nasal Cannula Weight: 138 lb 7.205 oz Body Mass Index (BMI) 20.4 Intake and Output for Last 24 Hours 07/28/18 07/29/18 07/30/18 23:59 23:59 23:59 Intake Total 1234.5 / 1234.5 Balance 1234.5 / 1234.5 Microbiology Past 72 Hours 07/29/18 21:35 Legionella Antigen - Final Interface Orders Streptococcus pneumoniae Antigen (M - Final Laboratory Tests Past 24 Hrs 07/29/18 07/29/18 07/29/18 21:05 21:05 21:21 WBC 17.4 H RBC 4.75 Hgb 13.7 Hct 40.9 MCV 86.1 MCH 28.8 MCHC 33.5 RDW 15.8 H RDW Differential 49.9 H Plt Count 291 MPV 10.0 Immature Gran % (Auto) 0.200 Neut % (Auto) 91.8 H Lymph % (Auto) 3.6 L [place] % (Auto) 4.3 Eos % (Auto) 0.0 Baso % (Auto) 0.1 Absolute Neuts (auto) 16.0 H Absolute Lymphs (auto) 0.62 L Total Counted Not Reportable PT 14.0 INR 1.1 Specimen Type Sample Site pH Bicarbonate Actual POC Total CO2 Base Excess O2 Saturation O2 % ABG pCO2 ABG pO2 Sha Test O2 Delivery Device EPAP IPAP Blood Gas Notified Whom Blood Gas Notified Time Sodium 134 L Potassium 3.9 Chloride 96 L Carbon Dioxide 30.0 Anion Gap 8 BUN 21 H Creatinine 0.76 Estim Creat Clear Calc 61.67 Est GFR (MDRD) Af Amer 129 Est GFR (MDRD) Non-Af 107 BUN/Creatinine Ratio 27.5 H Glucose 99 Lactic Acid Calcium 9.3 Magnesium Total Bilirubin AST ALT Alkaline Phosphatase Troponin I < 0.015 Total Protein Albumin Globulin Albumin/Globulin Ratio TSH Urine Color Urine Clarity Urine pH Ur Specific [place] Urine Protein Urine Glucose (UA) Urine Ketones Urine Occult Blood Urine Nitrite Urine Bilirubin Urine Urobilinogen Ur Leukocyte Esterase Urine RBC Urine WBC Ur Squamous Epith Cells Amorphous Sediment Urine Bacteria Urine Mucus Carbamazepine 07/29/18 07/29/18 07/29/18 21:21 21:21 21:35 WBC RBC Hgb Hct MCV MCH MCHC RDW RDW Differential Plt Count MPV Immature Gran % (Auto) Neut % (Auto) Lymph % (Auto) [place] % (Auto) Eos % (Auto) Baso % (Auto) Absolute Neuts (auto) Absolute Lymphs (auto) Total Counted PT INR Specimen Type Sample Site pH Bicarbonate Actual POC Total CO2 Base Excess O2 Saturation O2 % ABG pCO2 ABG pO2 Sha Test O2 Delivery Device EPAP IPAP Blood Gas Notified Whom Blood Gas Notified Time Sodium Potassium Chloride Carbon Dioxide Anion Gap BUN Creatinine Estim Creat Clear Calc Est GFR (MDRD) Af Amer Est GFR (MDRD) Non-Af BUN/Creatinine Ratio Glucose Lactic Acid 1.6 Calcium Magnesium Total Bilirubin AST ALT Alkaline Phosphatase Troponin I Total Protein Albumin Globulin Albumin/Globulin Ratio TSH Urine Color Yellow Urine Clarity Sl. Cloudy Urine pH 6.5 Ur Specific [place] 1.015 Urine Protein 30 H Urine Glucose (UA) Normal Urine Ketones 15 H Urine Occult Blood 50 H Urine Nitrite Negative Urine Bilirubin Negative Urine Urobilinogen Normal Ur Leukocyte Esterase 25 H Urine RBC 0-5 SEEN Urine WBC 0-5 SEEN Ur Squamous Epith Cells 0-5 SEEN Amorphous Sediment 1+ URATE Urine Bacteria 0 SEEN Urine Mucus 0 SEEN Carbamazepine 8.4 07/29/18 07/30/18 07/30/18 21:47 06:26 06:26 WBC RBC Hgb Hct MCV MCH MCHC RDW RDW Differential Plt Count MPV Immature Gran % (Auto) Neut % (Auto) Lymph % (Auto) [place] % (Auto) Eos % (Auto) Baso % (Auto) Absolute Neuts (auto) Absolute Lymphs (auto) Total Counted PT 14.0 INR 1.1 Specimen Type ART Sample Site L Radial pH 7.44 Bicarbonate Actual 25.2 POC Total CO2 26 Base Excess 1 O2 Saturation 89 L O2 % 40 ABG pCO2 37.2 ABG pO2 53 L Sha Test POS O2 Delivery Device Bi / C PAP EPAP 6 IPAP 12 Blood Gas Notified Whom ED Blood Gas Notified Time 2140 Sodium 135 L Potassium 4.3 Chloride 100 Carbon Dioxide 29.0 Anion Gap 6 BUN 21 H Creatinine 0.81 Estim Creat Clear Calc 73.22 Est GFR (MDRD) Af Amer 120 Est GFR (MDRD) Non-Af 99 BUN/Creatinine Ratio 25.9 H Glucose 102 Lactic Acid Calcium 8.7 Magnesium 1.9 Total Bilirubin 0.80 AST 28 ALT 37 Alkaline Phosphatase 102 Troponin I Total Protein 6.4 Albumin 2.5 L Globulin 3.9 Albumin/Globulin Ratio 0.6 L TSH 2.39 Urine Color Urine Clarity Urine pH Ur Specific [place] Urine Protein Urine Glucose (UA) Urine Ketones Urine Occult Blood Urine Nitrite Urine Bilirubin Urine Urobilinogen Ur Leukocyte Esterase Urine RBC Urine WBC Ur Squamous Epith Cells Amorphous Sediment Urine Bacteria Urine Mucus Carbamazepine Clinical Impression(s) from Imaging Studies Brain CT 07/29/18 21:14 IMPRESSION: Chronic age related changes and atrophy. No acute abnormality. Electronically Signed: Sy Moss MD at 22:53 EDT , Service support , Chest X-Ray 07/29/18 21:40 IMPRESSION: Severe COPD and pulmonary hypertension. Bilateral basilar infiltrates. Electronically Signed: Sy Moss MD at 22:10 EDT , Service support , Assessment/Plan All Active Problems (Last Reviewed 04/27/18 @ 14:37 by Seema Posadas) Bilateral pneumonia (Acute) Acute respiratory failure with hypoxia (Acute) COPD exacerbation (Acute) Acute respiratory failure (Acute) Empyema of right pleural space (Resolved) PEG (percutaneous endoscopic gastrostomy) adjustment/replacement/removal (Resolved) RECOMMENDATIONS: 1. Agree with broadening antibiotics to Zosyn. 2. Check MRSA screen. 3. Continue bronchodilators and steroids as ordered. 4. Wean supplemental oxygen to maintain saturations at or above 90%. 5. Obtain speech therapy consultation. Patient to remain n.p.o. for now. 6. Obtain nutrition recommendations for tube feeds. 7. If the patient were to become more somnolent, obtain arterial blood gas. IMPRESSIONS: 1. Acute hypoxemic respiratory failure likely secondary to recurrent aspiration pneumonia The patient has known severe COPD based upon pulmonary function testing from several years ago. It is unclear which pulmonary provider the patient is currently following with. He reports that he does not utilize any inhalers at his baseline. I agree with broadening antibiotics to Zosyn. Sputum culture is currently pending. We will plan to check an MRSA screen as well. Recommend strict n.p.o. status. If the patient were to become less responsive, would obtain arterial blood gas and initiate bilevel therapy, if clinically indicated. The patient is DNR CCA without plans for intubation. Agree with continuing scheduled bronchodilators and steroids for now. 2. Personal history of empyema/COPD/multiple sclerosis/chronic pain syndrome/depression/severe immobility and deconditioning Complicates care, management, recovery and prognosis. Recommend evaluation by physical therapy and speech therapy as well. This note was generated with [employer] software. It may contain incorrect words, spelling, and punctuation that were not noted in checking the note before signing. Code Visit Inpatient E&M: 40133 Init Hosp L3
--- NOTE | 2018-07-30 13:15 | SP.MBSS_ITS ---
PRIMARY / SECONDARY DIAGNOSIS: dysphagia (R13.12) REFERRING PHYSICIAN: Dr. Abbie Mckeon MD CURRENT DIET: NPO with alternative means of nutrition via PEG. DENTITION: natural; suboptimal repair MENTAL STATUS: sufficient for participation. RESPIRATORY STATUS: O2 at 4L/min via nasal cannula. REASON FOR REFERRAL: The Patient is a 73 year old male referred for a modified barium swallow (MBS) study to objectively assess the Patients oropharyngeal swallow function under fluoroscopy secondary to concerns for exacerbations in baseline dysphagia leading to current hospitalization (pneumonia with suspected aspiration component) / exacerbation complicating current admission, with assessment at bedside complicated by moist baseline coughing in addition to consistent post prandial coughing accompanying both deglutition with and without bolus consumption (during dry swallows as well as with all solids and liquids), MEDICAL HISTORY: Multiple sclerosis with physical disability, paraplegia, wheelchair dependent, chronic dysphagia requiring intermittent alternative supplementation status post PEG placement; chronic obstructive pulmonary disease, status post anterior cervical fusion of C5-C6, gastroesophageal reflux disease, ulcerative esophagitis, physical debility, hypertension, depression, anemia, benign prostatic hypertrophy, vitamin D deficiency, gout. PREVIOUS MODIFIED BARIUM SWALLOW STUDY: 05/29/2016 MBS revealed moderate oropharyngeal dysphagia (DSRS: 4; SPS: 5) with overt aspiration of thin liquids. 04/25/2016 MBS at [facility] revealed severe oropharyngeal dysphagia with consistent airway compromise across consistencies (penetration with nectar, aspiration with honey & purees). 01/18/2013 MBS at [facility] revealed moderate oropharyngeal dysphagia. ADDITIONAL OBJECTIVE ASSESSMENT RESULTS: 07/29/2018 CXR revealed severe COPD and pulmonary hypertension; bilateral basilar infiltrates. 07/29/2018 CT revealed chronic age related changes and atrophy; no acute abnormality. ASSESSMENT PARAMETERS: The Patient participated in a Modified Barium Swallow (MBS) study on 07/30/2018. Dr. Jolley was the radiologist present for this evaluation. This study was recorded in the lateral view and images were sent to PACs for storage. Scoring was completed through each trial using the 8-point Penetration-Aspiration Scale (PAS) and Videofluoroscopic Scale Score (VSS), and summarized via the Modified Barium Swallow Impairment Profile (MBSImP) and the Bolus Residue Scale (BRS), with severity scoring through the Dysphagia Severity Rating Scale (DSRS) and Swallowing Performance Scale (SPS), and recommended diet textures through the International Dysphagia Diet Standardisation Initiative (IDDSI). RESULTS OF THE EVALUATION: The Patient presents with moderate oropharyngeal dysphagia (DSRS: AAA; SPS: AAA) with grade II overt aspiration of thin liquids secondary to the diagnosis of multiple sclerosis possibly influenced by COPD, with current presentation likely representing an exacerbation in symptomology from baseline. OBJECTIVE ASSESSMENT OF SWALLOW FUNCTION (QUANTITATIVE ? PER TRIAL): PENETRATION / ASPIRATION SCALE (ZAMARRIPA): 1 = does not enter airway 2 = enters airway/above vocal folds/ejected 3 = enters airway/above vocal folds/not ejected 4 = enters airway/contacts vocal folds/ejected 5 = enters airway/contacts vocal folds/not ejected 6 = enters airway/below vocal folds/ejected 7 = enters airway/below vocal folds/not ejected despite effort 8 = enters airway/below vocal folds/no effort VIDEOFLOROSCOPIC SCALE SCORE (ZAMARRIPA): Grade I = aspiration of material that has penetrated into the laryngeal vestibule, intact cough reflex Grade II = aspiration < 10 % of the bolus, intact cough reflex Grade III = aspiration of < 10 % of the bolus, reduced cough reflex or aspiration of > 10 % of the bolus, intact cough reflex Grade IV = aspiration of > 10 % of the bolus, reduced cough reflex PENETRATION / ASPIRATION SCALE (SCORE) WITH VIDEOFLOROSCOPIC SCALE SCORE: Thin liquid - 5 mL tsp.: 1 Thin liquids via cup (single sip): 5 Thin liquids via cup (single sip): 5 Thin liquids via straw (single sip): 1 Thin liquids via straw (sequential swallows): 7 ? Grade II [place] thickened liquids via cup (single sip): 1 [place] thickened liquids via cup (single sip): 2 [place] thickened liquids via cup (single sip): 1 Pudding via spoon: 1 Regular textured cookie: 1 [place] thickened liquids via cup (single sip): 1 OBJECTIVE ASSESSMENT OF SWALLOW FUNCTION (QUANTITATIVE ? AGGREGATE): MODIFIED BARIUM SWALLOW IMPAIRMENT PROFILE (MBSImP) LABIAL SEAL: 0 (of 4) no labial escape TONGUE CONTROL: 3 (of 3) posterior escape > 50% BOLUS PREPARATION / MASTICATION: 1 (of 3) slow prolonged; complete recollection BOLUS TRANSPORT / LINGUAL MOTION: 1 (of 4 ) delayed initiation of motion ORAL RESIDUE: 1 (of 4) trace residue lining oral structures INITIATION OF PHARYNGEAL SWALLOW: 3 (of 4) pyriforms SOFT PALATE ELEVATION: 0 (of 4) no bolus between soft palate & pharyngeal wall LARYNGEAL ELEVATION: 1 (of 3) partial superior movement / approximation ANTERIOR HYOID EXCURSION: 0 (of 2) complete movement EPIGLOTTIC MOVEMENT: 0 (of 2) complete inversion LARYNGEAL VESTIBULE CLOSURE: 1 (of 2) incomplete closure PHARYNGEAL STRIPPING WAVE: 0 (of 2) present / complete PE SEGMENT OPENIN (of 3) partial distension / duration / obstruction TONGUE BASE RETRACTION: 1 (of 4) trace column of contrast PHARYNGEAL RESIDUE: 1 (of 4) trace residue ESOPHAGEAL BOLUS CLEARANCE: could not view BOLUS RESIDUE SCALE (BRS): 2 (of 6) residue in valleculae DYSPHAGIA SEVERITY RATING SCALE (DSRS): 4 (moderate) SWALLOWING PERFORMANCE SCALE (SPS): 5 (moderate) OBJECTIVE ASSESSMENT OF SWALLOW FUNCTION (QUALITATIVE): ORAL PREPARATORY PHASE: mild (albeit effective) mastication inefficiency with somewhat prolonged mastication; sufficient anterior oral containment; preserved management of breathing / bolus formation without disrupted E ? S ? E pattern ORAL TRANSITIONAL PHASE: incompetent bolus transportation with inconsistent oral phase swallow onset delay (mild; 1-2 seconds in length particularly with thin liquids); no bolus consolidation impairments; premature posterior bolus loss particularly during consumption of thin liquids. PHARYNGEAL PHASE: pharyngeal phase delay / dyssynchrony with variations in bolus dwell time (1-3 seconds) most prominently during trials of thin liquids; mild reduction in hyolaryngeal excursion resulting in inconsistent laryngeal vestibule pressure generated to expel penetrated material; no signs of pharyngeal dysmotility; no signs of velopharyngeal impairments; prandial penetration and eventual aspiration during trials of thin liquids; no further aspiration throughout trials. ESOPHAGEAL PHASE: no obvious esophageal phase abnormalities observed. CONTRIBUTING / COMPLICATING FACTORS AND NOTABLE FINDINGS: rather weak cough in response to tracheobronchial aspiration (dystussia); anterior cervical fusion located at the C-5 C-6 level, no impact on pharyngoesophageal segment opening; RESPONSE TO STRATEGIES: all deficits managed successfully with reduction in bolus size selection and diet texture adjustments. RECOMMENDATIONS AND CONSIDERATIONS: The Patient was noted to overtly aspirate during trials of thin liquids, suggesting clinical assessment at bedside relying on identification of classic overt signs and symptoms of aspiration may be sufficient to determine appropriateness for PO texture upgrade to thin liquids. Would recommend a repeat modified barium swallow study within 1 - 2 weeks (if clinically appropriate) for further identification of compensatory swallow strategy appropriateness if unable to advance to a less restrictive diet; would anticipate insufficient effects given the relative recency of confusion / somnolence leading to the current study. Would consider the Patient to be at higher risk of aspiration related medical complications / aspiration pneumonia / aspiration related pulmonary syndrome secondary to the diagnosis of multiple sclerosis, chronic obstructive pulmonary disease, and gastroesophageal reflux disease; fluctuating depressed consciousness; presence of dysphagia; compromised airway defenses (dystussia); suboptimal dentition and current dependent for oral care, lower physical functional status, intermittent tube feeding use, and higher prevalence of comorbidities. Would additionally consider the Patent to be at higher risk of oropharyngeal colonization with respiratory pathogens secondary to the Patient?s poor oral nutritional status; inconsistent oral hygiene; xerostomia with impaired / inconsistent salivary clearance; recent use of antibiotics possibly provoking a variety of respiratory rhonda; placement on alternative means of nutrition (though varied use); and prevalence of gastroesophageal reflux disease. Will continue to recommend an AGGRESSIVE oral care program that includes pre-rinse use prior to intake; routine oral care in the a.m., prior to oral intake, after oral intake, and prior to bed via toothbrush / swab / rinse; use of oral moisturizers as needed to reduce impact of xerostomia; and frequent dental checkups post-acute admission. The Patient requires intensive skilled speech-language intervention targeting diet texture management and training / implementation of recommended compensatory strategies; training and implementation of a home oral care protocol to reduce the effects of xerostomia and improve / maintain the integrity of the oral mucosa reducing the risk of aspiration related pulmonary complications; Patient and caregiver education regarding dysphagia associated with multiple sclerosis and chronic obstructive pulmonary disease (COPD); and Patient / caregiver training targeting meal preparation / thickened liquid preparation if unable to advance to baseline diet textures prior to discharge. Strongly encourage dedicated use of incentive spirometer to facilitate improved pulmonary expansion and cough intensity. Results and recommendations were discussed with the Patient immediately post assessment and later with the Patients family via phone following MBS completion, with the Patient and Patients family verbalizing understanding and agreement with all recommendations and education provided. DIET TEXTURE RECOMMENDATIONS: Will recommend a regular ? soft textured (IDDSI: 6), nectar thickened liquid (IDDSI: 2) diet RECOMMENDED COMPENSATORY STRATEGIES: Supervision by staff or family, consider cutting tougher textures into bite sized pieces, reduced bolus volume / rate of ingestion, straws ok, seated upright at 90 degrees during PO intake, remain upright for 30-60 minutes post meal (GERD precaution), medications one at a time with a liquid chaser; supplementation via alternative means of nutrition as needed. IMAGE COUNT: [id number] Braxton Leblanc M.A., CCC-CATEGORY DIRECTOR MBSImP Certified, LSVT Certified [facility] Speech-Language Pathology Department [email or web address]
--- NOTE | 2018-07-30 13:30 | RAD_ITS ---
STUDY: SWALLOWING STUDY REASON FOR EXAM: Male, 73 years old. Possible aspiration. TECHNIQUE: The examination was performed with Speech Pathology in attendance. Under fluoroscopic observation, the patient ingested thin barium, thick barium, barium pudding, and barium coated cracker. FLUOROSCOPY TIME: 2:10 minutes/seconds. 2065 spot images were obtained. RADIOLOGIST INVOLVEMENT: Radiologist was present and providing direct supervision. COMPARISON: Comparison is made with prior examination of May 29, 2016. FINDINGS: The following was observed during swallowing of the various mixtures of barium: Thin Barium: Intermittent penetration and silent aspiration with ingestion of thin liquids. Thick Barium: There was no evidence of aspiration or laryngeal penetration. Barium Pudding: There was no evidence of aspiration or laryngeal penetration. Barium Coated Cracker: There was no evidence of aspiration or laryngeal penetration. RAD/Swallowing Function w/Video IMPRESSION: Intermittent penetration and silent aspiration with ingestion of thin liquids. The swallow study findings were discussed with the patient by the speech pathologist at the conclusion of the examination. Please see speech pathology report for more information and recommendations. Electronically Signed: Bob Jolley, at 14:05 EDT , Service support ,
--- NOTE | 2018-07-30 13:45 | CASEMGMT ---
ERIN MILLER assessment: Face to Face with patient for initial transition planning/care coordination assessment. ERIN MILLER introduced self and role at [facility], pt voices understanding and consents to assessment at this time. This ERIN MILLER spoke with sig other via phone as pt has been sleeping/lethargic most of day. Care providers, pharmacy, and demographics verified at this time. PCP: Mario Giraldo Specialists: josephine Gibson Pharmacy: [facility] Insurance: MCR A/B, AARP Prescription Benefit: Yes, but she was unsure who it was through at this time. Living Will/HPOA: Pt has LW/HPOA on file at [facility] at this time and Johanne Dang, sig other is HPOA. LNOK: Johanne Dang sig other/ex-/HPOA Living Arrangements: Pt lives with sig other in 2 story home with stair lift to 2nd floor and sig other states no concerns at home at this time. Pt has a geological aide 4 days/week for 2 hours daily and then sig other assists him as well. Transportation: Pt's sig other drives and states no transportation concerns at this time. DME/HHC: Pt has the following DME: w/c, walker, nebulizer, BSC, raised toilet seat, shower chair, grab bars, lift chair, stair lift, compression vest, and pulse ox. Pt has had [facility] HHC in the past and has been to [facility] and [facility] inpt rehab as well. Sig other states that pt was set up with palliative care 04/2016 by [facility] but states that he is not current at this time. SIg other is unsure of discharge plan at this time but is agreeable to have pt placed on the TCU list at this time as this is where she would want him to go, if necessary. Pt is retired. Pt does not smoke but does drink wine occasionally per sig other. Sig other voices no further questions/concerns/needs at this time. Advised sig other to ask for CM if any further questions/concerns/needs arise, voices understanding. Pt Goal: Home w/ sig other/geological aide Plan: TBD [place] ERIN MILLER
--- NOTE | 2018-07-30 13:56 | CASEMGMT ---
Message was left for Pallavi in TCU putting patient's name on the list in the even patient needs placement at d/c. RN CM spoke with and she was in agreement. Rizwana ARRIAGA MSW
--- NOTE | 2018-07-30 14:06 | PCM.PROGNOTE ---
Patient Problems: Active and Suspected Problems (Last Reviewed 04/27/18 @ 14:37 by Seema Posadas) Bilateral pneumonia (Acute) Acute respiratory failure with hypoxia (Acute) COPD exacerbation (Acute) Subjective: Patient seen and examined. Lethargic during assessment. No family at bedside. - Physical Exam General: Lethargic HEENT: Atraumatic, PERRLA, EOMI, Normocephalic Oral: Dry Mucosa Neck: Supple, No JVD, Negative Carotid Bruits Lungs: Diminished, Rales, Rhonchi Cardiovascular: Regular rate, Regular Rhythm, Normal S1, Normal S2, No murmurs Abdomen: Bowel Sounds Present, Soft, Non Tender, Non-Distended Extremities: No clubbing, No cyanosis, No edema, Capillary Refill Less than 3 Seconds Skin: No rashes, No breakdown Musculoskeletal: No Tenderness to Palpation of Joints or Extremities, Cachexia, Muscle Wasting Neurological: Cranial nerves II-XII grossly intact, Neuro grossly intact Psych/Mental Status: - - Unable to assess due to lethargy Vital Signs Temp Pulse Resp BP Pulse Ox 98 F 88 18 105/68 96 07/30/18 10:00 07/30/18 10:52 07/30/18 10:52 07/30/18 10:00 07/30/18 10:52 Oxygen Flow Rate (L/min) 4 Oxygen Delivery Method Nasal Cannula Weight: 138 lb 7.205 oz Body Mass Index (BMI) 20.4 Intake and Output for Last 24 Hours 07/28/18 07/29/18 07/30/18 23:59 23:59 23:59 Intake Total 1234.5 / 1234.5 Balance 1234.5 / 1234.5 Microbiology Past 72 Hours 07/29/18 21:35 Legionella Antigen - Final Interface Orders Streptococcus pneumoniae Antigen (M - Final Laboratory Tests Past 24 Hrs 07/29/18 07/29/18 07/29/18 21:05 21:05 21:21 WBC 17.4 H RBC 4.75 Hgb 13.7 Hct 40.9 MCV 86.1 MCH 28.8 MCHC 33.5 RDW 15.8 H RDW Differential 49.9 H Plt Count 291 MPV 10.0 Immature Gran % (Auto) 0.200 Neut % (Auto) 91.8 H Lymph % (Auto) 3.6 L Mclennan % (Auto) 4.3 Eos % (Auto) 0.0 Baso % (Auto) 0.1 Absolute Neuts (auto) 16.0 H Absolute Lymphs (auto) 0.62 L Total Counted Not Reportable PT 14.0 INR 1.1 Specimen Type Sample Site pH Bicarbonate Actual POC Total CO2 Base Excess O2 Saturation O2 % ABG pCO2 ABG pO2 Sha Test O2 Delivery Device EPAP IPAP Blood Gas Notified Whom Blood Gas Notified Time Sodium 134 L Potassium 3.9 Chloride 96 L Carbon Dioxide 30.0 Anion Gap 8 BUN 21 H Creatinine 0.76 Estim Creat Clear Calc 61.67 Est GFR (MDRD) Af Amer 129 Est GFR (MDRD) Non-Af 107 BUN/Creatinine Ratio 27.5 H Glucose 99 Lactic Acid Calcium 9.3 Magnesium Total Bilirubin AST ALT Alkaline Phosphatase Troponin I < 0.015 Total Protein Albumin Globulin Albumin/Globulin Ratio TSH Urine Color Urine Clarity Urine pH Ur Specific [place] Urine Protein Urine Glucose (UA) Urine Ketones Urine Occult Blood Urine Nitrite Urine Bilirubin Urine Urobilinogen Ur Leukocyte Esterase Urine RBC Urine WBC Ur Squamous Epith Cells Amorphous Sediment Urine Bacteria Urine Mucus Carbamazepine 07/29/18 07/29/18 07/29/18 21:21 21:21 21:35 WBC RBC Hgb Hct MCV MCH MCHC RDW RDW Differential Plt Count MPV Immature Gran % (Auto) Neut % (Auto) Lymph % (Auto) Mclennan % (Auto) Eos % (Auto) Baso % (Auto) Absolute Neuts (auto) Absolute Lymphs (auto) Total Counted PT INR Specimen Type Sample Site pH Bicarbonate Actual POC Total CO2 Base Excess O2 Saturation O2 % ABG pCO2 ABG pO2 Sha Test O2 Delivery Device EPAP IPAP Blood Gas Notified Whom Blood Gas Notified Time Sodium Potassium Chloride Carbon Dioxide Anion Gap BUN Creatinine Estim Creat Clear Calc Est GFR (MDRD) Af Amer Est GFR (MDRD) Non-Af BUN/Creatinine Ratio Glucose Lactic Acid 1.6 Calcium Magnesium Total Bilirubin AST ALT Alkaline Phosphatase Troponin I Total Protein Albumin Globulin Albumin/Globulin Ratio TSH Urine Color Yellow Urine Clarity Sl. Cloudy Urine pH 6.5 Ur Specific [place] 1.015 Urine Protein 30 H Urine Glucose (UA) Normal Urine Ketones 15 H Urine Occult Blood 50 H Urine Nitrite Negative Urine Bilirubin Negative Urine Urobilinogen Normal Ur Leukocyte Esterase 25 H Urine RBC 0-5 SEEN Urine WBC 0-5 SEEN Ur Squamous Epith Cells 0-5 SEEN Amorphous Sediment 1+ URATE Urine Bacteria 0 SEEN Urine Mucus 0 SEEN Carbamazepine 8.4 07/29/18 07/30/18 07/30/18 21:47 06:26 06:26 WBC RBC Hgb Hct MCV MCH MCHC RDW RDW Differential Plt Count MPV Immature Gran % (Auto) Neut % (Auto) Lymph % (Auto) Mclennan % (Auto) Eos % (Auto) Baso % (Auto) Absolute Neuts (auto) Absolute Lymphs (auto) Total Counted PT 14.0 INR 1.1 Specimen Type ART Sample Site L Radial pH 7.44 Bicarbonate Actual 25.2 POC Total CO2 26 Base Excess 1 O2 Saturation 89 L O2 % 40 ABG pCO2 37.2 ABG pO2 53 L Sha Test POS O2 Delivery Device Bi / C PAP EPAP 6 IPAP 12 Blood Gas Notified Whom ED Blood Gas Notified Time 2140 Sodium 135 L Potassium 4.3 Chloride 100 Carbon Dioxide 29.0 Anion Gap 6 BUN 21 H Creatinine 0.81 Estim Creat Clear Calc 73.22 Est GFR (MDRD) Af Amer 120 Est GFR (MDRD) Non-Af 99 BUN/Creatinine Ratio 25.9 H Glucose 102 Lactic Acid Calcium 8.7 Magnesium 1.9 Total Bilirubin 0.80 AST 28 ALT 37 Alkaline Phosphatase 102 Troponin I Total Protein 6.4 Albumin 2.5 L Globulin 3.9 Albumin/Globulin Ratio 0.6 L TSH 2.39 Urine Color Urine Clarity Urine pH Ur Specific [place] Urine Protein Urine Glucose (UA) Urine Ketones Urine Occult Blood Urine Nitrite Urine Bilirubin Urine Urobilinogen Ur Leukocyte Esterase Urine RBC Urine WBC Ur Squamous Epith Cells Amorphous Sediment Urine Bacteria Urine Mucus Carbamazepine Medical Necessity - Tobacco Use Smoking Status: Former smoker Assessment/Plan All Active Problems (Last Reviewed 04/27/18 @ 14:37 by Seema Posadas) Bilateral pneumonia (Acute) Acute respiratory failure with hypoxia (Acute) COPD exacerbation (Acute) Acute respiratory failure (Acute) Empyema of right pleural space (Resolved) PEG (percutaneous endoscopic gastrostomy) adjustment/replacement/removal (Resolved) 1. Acute hypoxic respiratory failure secondary to recurrent suspected aspiration pneumonia and exacerbation of COPD-complicated history of empyema and thoracotomy. Speech therapy consult. IV Zosyn. Pulmonary medicine following. Albuterol and DuoNeb aerosols. IV Solu-Medrol. Continue supplement oxygen to maintain O2 at or above 90%. Walking pulse ox prior to discharge. Sputum culture pending. Blood culture pending. Urine positive for pneumococcal pneumonia. 2. 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 Every 2 hours turns. Continue home Copaxone, Tegretol, Cymbalta and Ampyra regimen. Status post PEG tube placement. Speech therapy consult. 3. Chronic pain syndrome-PRN pain regimen. 4. Hypertension-stable, continue home losartan, amlodipine regimen. 5. Depression-continue home Cymbalta regimen. DVT prophylaxis- Lovenox sc This patient was seen by MAURI Cho under the supervision of Dr. Mckeon.
[2018-07-30 15:23] LABS: M R Staph aureus DNA By PCR POSITIVE (Negative); Probe Check PASS
[2018-07-30] MEDS: guaiFENesin 1,200 MG Tablet 1200 MG PO (15:32)
[2018-07-30] MEDS: carBAMazepine 200 MG Tablet 100 MG PO (15:32)
[2018-07-30] MEDS: DULoxetine Hcl 60 MG Capsule PO (15:33)
[2018-07-30] MEDS: Multivitamins,Therapeutic Tablet 1 TABLET PO (15:33)
[2018-07-30] MEDS: Pantoprazole Sodium 40 MG Tablet PO (15:33)
[2018-07-30] MEDS: Losartan Potassium 100 MG Tablet PO (15:33)
[2018-07-30] MEDS: amLODIPine 5 MG Tablet PO (15:33)
[2018-07-30] MEDS: Dronabinol 2.5 MG Capsule PO ×2 (15:45→23:06)
[2018-07-30] MEDS: DALFAMPRIDINE 10 MG TAB.ER.12H PO (15:45)
--- NOTE | 2018-07-30 17:00 | PCM.RX.CS ---
Consult Pharmacy has been consulted to manage selected antiobiotic: Vancomycin Type of Consult: New start Suspected Infection: Pneumonia Prior Doses of Antibiotics Received/Current Regimen: None Labs: Sodium 135 mmol/L (136-145) L 07/30/18 06:26 Potassium 4.3 mmol/L (3.5-5.1) 07/30/18 06:26 Chloride 100 mmol/L (98-107) 07/30/18 06:26 Carbon Dioxide 29.0 mmol/L (21.0-32.0) 07/30/18 06:26 Anion Gap 6 (5-15) 07/30/18 06:26 BUN 21 mg/dL (7-18) H 07/30/18 06:26 Creatinine 0.81 mg/dL (0.70-1.30) 07/30/18 06:26 Est GFR (MDRD) Af Amer 120 mL/min (>60) 07/30/18 06:26 Est GFR (MDRD) Non-Af 99 mL/min (>60) 07/30/18 06:26 BUN/Creatinine Ratio 25.9 RATIO (10-20) H 07/30/18 06:26 Glucose 102 mg/dL (74-106) 07/30/18 06:26 Microbiology: Microbiology 07/30/18 13:00 Sputum, Expectorated/Coughed Gram Stain - Final 07/29/18 21:35 Interface Orders Legionella Antigen - Final 07/29/18 21:35 Interface Orders Streptococcus pneumoniae Antigen (M - Final Weight used for dosin kg Estimated Creatinine Clearance: 73ml/min Goal Trough: 15-20 mcg/mL Pharmacy Plan for Drug Dosing: Pt will receive a 25mg/kg loading dose or 1750mg dose of Vancomycin IV x1. Pt will then receive a scheduled dose of Vancomycin 1000mg IV q12h starting 12 hours after the loading dose was administered. Trough to be drawn before the 4th total dose. Pharmacy Service will continue to monitor and adjust dosing as required. Follow-Up Labs: Trough Vancomycin
[2018-07-30] MEDS: guaiFENesin 10 ML UDC (200MG/10ML) 30 ML PO (23:02)
[2018-07-31] VITALS (16 sets, daily range): BP systolic 104–111; BP diastolic 52–66; PULSE 72–99; RESP 16–24; TEMP 36.4–36.8; O2SAT 90–96
[2018-07-31] MEDS: Ipratropium/Albuterol Sulfate 3 ML AMPUL.NEB INHALATION ×4 (03:56→18:52)
--- NOTE | 2018-07-31 04:33 | CPS ---
pt declined bipap tonight, 5L nasal o2 96% decreased to 4.5L
[2018-07-31] MEDS: Vancomycin IV 1,000 MG/200 ML BAG 200 MG IV ×2 (06:02→18:36)
[2018-07-31] MEDS: 0.9% NaCl Peripheral Flush Adult/Peds IV ×3 (06:03→22:10)
[2018-07-31 06:05] LABS: Absolute Lymphocyte Count 0.38 X10^3/ul (0.83-4.51); Absolute Neutrophil Count 12.9 X10^3/uL (2.0-7.7); Hematocrit 34.4 % (40-54); Hemoglobin 11.2 g/dl (13.0-16.5); Lymphocyte # 0.38 X10^3/ul (4.0); Lymphocyte % 2.7 % (19-41); Mean Corp Hgb Conc 32.6 g/gl (32-36); Mean Corpuscular Hgb 27.9 pg (27.0-32.0); Mean Corpuscular Volume 85.6 fL (80-94); Mean Platelet Vol. 10.4 fl (6.2-12.0); Monocyte# 0.53 X10^3/uL; Monocyte% 3.8 % (0-10); Neutrophil # 12.93 X10^3/uL (2.7-7.7); Neutrophil % 93.4 % (47-70); Platelet Count 283 K/mm3 (150-450); RBC Distribution Width SD 49.3 fl (35.1-43.9); Red Blood Count 4.02 M/mm3 (4.6-6.2); White Blood Count 13.9 K/mm3 (4.4-11.0)
[2018-07-31 06:08] LABS: Differential Indicated SCAN CRITERIA MET; POSITIVE COUNT NO; POSITIVE DIFFERENTIAL YES; POSITIVE MORPHOLOGY NO
[2018-07-31 06:37] LABS: Anion Gap 8 (5-15); BUN 25 mg/dL (7-18); BUN/Creat Ratio 31.5 RATIO (10-20); Calcium,Total 8.8 mg/dL (8.5-10.1); Chloride 102 mmol/L (98-107); Creatinine, Serum 0.79 mg/dL (0.70-1.30); EST Glomerular Filtration Rate 102 mL/min (>60); Est Glom Filt Rate - Afr Amer 123 mL/min (>60); Estimated Creatinine Clearance 59.31 ml/min; Glucose 136 mg/dL (74-106); Potassium 4.1 mmol/L (3.5-5.1); Sodium Level 138 mmol/L (136-145)
--- NOTE | 2018-07-31 07:42 | PCM.PN.PUL ---
Patient Problems: Active and Suspected Problems (Last Updated 07/31/18 @ 12:05 by Benitez Kaur MD) Bilateral pneumonia (Acute) Acute respiratory failure with hypoxia (Acute) COPD exacerbation (Acute) Subjective: The patient was seen and examined at the bedside this morning. Events from the last 24 hours have been reviewed. The patient is currently afebrile, hemodynamically stable and maintaining appropriate oxygen saturations on 4 L/min via nasal cannula. Leukocytosis is improving. In addition to the patient's Zosyn, the patient was started on vancomycin yesterday after his MRSA screen was found to be positive. The patient was evaluated by speech therapy and underwent a modified barium swallow during which time the patient was noted to be overtly aspirating on thin liquids. Objective: The patient's most recent lab work, culture data and imaging studies have all been personally reviewed. Blood cultures are pending. Sputum culture is pending. Strep and urine Legionella antigens were negative. MRSA screen was positive. - Physical Exam General: No apparent distress, - - Remains somnolent. Chronically ill and fatigued in appearance HEENT: Atraumatic, PERRLA, Normocephalic Oral: No Gingival or Mucosal Lesions/ Ulcerations Neck: Supple, No Nodes, Trachea Midline Lungs: Diminished, Rhonchi Cardiovascular: Regular rate, Regular Rhythm, Normal S1, Normal S2, No murmurs Abdomen: Soft, Non-Distended, Hypoactive Bowel Sounds, - - + G-tube in place Extremities: No clubbing, No cyanosis, No edema Skin: - - No significant change from previous. Musculoskeletal: Cachexia, Muscle Wasting Lymphatic: No Cervical, Supraclavicular, or Inguinal Adenopathy Neurological: - - No change from previous. Psych/Mental Status: Flat Affect Vital Signs Temp Pulse Resp BP Pulse Ox 97.6 F L 85 17 107/66 94 07/31/18 04:47 07/31/18 04:47 07/31/18 04:47 07/31/18 04:47 07/31/18 04:47 Oxygen Flow Rate (L/min) 4.5 Oxygen Delivery Method Nasal Cannula Weight: 138 lb 7.205 oz Body Mass Index (BMI) 20.4 Intake and Output for Last 24 Hours 07/29/18 07/30/18 07/31/18 23:59 23:59 23:59 Intake Total 1769.5 / 1769.5 764 / 764 Output Total 500 / 500 275 / 275 Balance 1269.5 / 1269.5 489 / 489 Microbiology Past 72 Hours 07/30/18 13:00 Gram Stain - Final Sputum, Expectorated/Coughed 07/29/18 21:35 Legionella Antigen - Final Interface Orders Streptococcus pneumoniae Antigen (M - Final Laboratory Tests Past 24 Hrs 07/30/18 07/31/18 07/31/18 14:00 05:35 05:35 WBC 13.9 H RBC 4.02 L Hgb 11.2 L Hct 34.4 L MCV 85.6 MCH 27.9 MCHC 32.6 RDW 16.0 H RDW Differential 49.3 H Plt Count 283 MPV 10.4 Immature Gran % (Auto) 0.100 Neut % (Auto) 93.4 H Lymph % (Auto) 2.7 L [place] % (Auto) 3.8 Eos % (Auto) 0.0 Baso % (Auto) 0.0 Absolute Neuts (auto) 12.9 H Absolute Lymphs (auto) 0.38 L Total Counted Not Reportable Sodium 138 Potassium 4.1 Chloride 102 Carbon Dioxide 28.0 Anion Gap 8 BUN 25 H Creatinine 0.79 Estim Creat Clear Calc 59.31 Est GFR (MDRD) Af Amer 123 Est GFR (MDRD) Non-Af 102 BUN/Creatinine Ratio 31.5 H Glucose 136 H Calcium 8.8 MRSA (PCR) POSITIVE H Clinical Impression(s) from Imaging Studies Brain CT 07/29/18 21:14 IMPRESSION: Chronic age related changes and atrophy. No acute abnormality. Electronically Signed: Sy Moss MD at 22:53 EDT , Service support , Chest X-Ray 07/29/18 21:40 IMPRESSION: Severe COPD and pulmonary hypertension. Bilateral basilar infiltrates. Electronically Signed: Sy Moss MD at 22:10 EDT , Service support , Videofluoroscopic Swallow 07/30/18 13:30 IMPRESSION: Intermittent penetration and silent aspiration with ingestion of thin liquids. The swallow study findings were discussed with the patient by the speech pathologist at the conclusion of the examination. Please see speech pathology report for more information and recommendations. Electronically Signed: Bob Jolley, at 14:05 EDT , Service support , Medical Necessity - Tobacco Use Smoking Status: Former smoker Assessment/Plan All Active Problems (Last Updated 07/31/18 @ 12:05 by Benitez Kaur MD) Bilateral pneumonia (Acute) Acute respiratory failure with hypoxia (Acute) COPD exacerbation (Acute) RECOMMENDATIONS: 1. Continue broad-spectrum antimicrobials, pending infectious work-up. 2. Continue modified diet with supervision per speech therapy recommendations. 3. Continue bronchodilators and steroids as ordered. 4. Wean supplemental oxygen to maintain saturations at or above 90%. IMPRESSIONS: 1. Acute hypoxemic respiratory failure likely secondary to recurrent aspiration pneumonia The patient has known severe COPD based upon pulmonary function testing from several years ago. It is unclear which pulmonary provider the patient is currently following with. He reports that he does not utilize any inhalers at his baseline. I agree with continuing broad-spectrum antimicrobial coverage, pending infectious work-up. Clinical concern for recurrent aspiration pneumonia. If the patient were to become less responsive, would obtain arterial blood gas and initiate bilevel therapy, if clinically indicated. The patient is DNR CCA without plans for intubation. Agree with continuing scheduled bronchodilators and steroids for now. 2. Personal history of empyema/COPD/multiple sclerosis/chronic pain syndrome/depression/severe immobility and deconditioning Complicates care, management, recovery and prognosis. Physical therapy and speech therapy following. Continue dietary recommendations per speech therapy. This note was generated with [employer] software. It may contain incorrect words, spelling, and punctuation that were not noted in checking the note before signing. Code Visit Inpatient E&M: 16509 Subs Hosp L2
--- NOTE | 2018-07-31 07:46 | PN_ITS ---
Patient Problems: Active and Suspected Problems (Last Updated 07/31/18 @ 12:05 by Benitez Kaur MD) Bilateral pneumonia (Acute) Acute respiratory failure with hypoxia (Acute) COPD exacerbation (Acute) Subjective: The patient was seen and examined at the bedside this morning. Events from the last 24 hours have been reviewed. The patient is currently afebrile, hemodynamically stable and maintaining appropriate oxygen saturations on 4 L/min via nasal cannula. Leukocytosis is improving. In addition to the patient's Zosyn, the patient was started on vancomycin yesterday after his MRSA screen was found to be positive. The patient was evaluated by speech therapy and underwent a modified barium swallow during which time the patient was noted to be overtly aspirating on thin liquids. Objective: The patient's most recent lab work, culture data and imaging studies have all been personally reviewed. Blood cultures are pending. Sputum culture is pending. Strep and urine Legionella antigens were negative. MRSA screen was positive. - Physical Exam General: No apparent distress, - - Remains somnolent. Chronically ill and fatigued in appearance HEENT: Atraumatic, PERRLA, Normocephalic Oral: No Gingival or Mucosal Lesions/ Ulcerations Neck: Supple, No Nodes, Trachea Midline Lungs: Diminished, Rhonchi Cardiovascular: Regular rate, Regular Rhythm, Normal S1, Normal S2, No murmurs Abdomen: Soft, Non-Distended, Hypoactive Bowel Sounds, - - + G-tube in place Extremities: No clubbing, No cyanosis, No edema Skin: - - No significant change from previous. Musculoskeletal: Cachexia, Muscle Wasting Lymphatic: No Cervical, Supraclavicular, or Inguinal Adenopathy Neurological: - - No change from previous. Psych/Mental Status: Flat Affect Vital Signs Temp Pulse Resp BP Pulse Ox 97.6 F L 85 17 107/66 94 07/31/18 04:47 07/31/18 04:47 07/31/18 04:47 07/31/18 04:47 07/31/18 04:47 Oxygen Flow Rate (L/min) 4.5 Oxygen Delivery Method Nasal Cannula Weight: 138 lb 7.205 oz Body Mass Index (BMI) 20.4 Intake and Output for Last 24 Hours 07/29/18 07/30/18 07/31/18 23:59 23:59 23:59 Intake Total 1769.5 / 1769.5 764 / 764 Output Total 500 / 500 275 / 275 Balance 1269.5 / 1269.5 489 / 489 Microbiology Past 72 Hours 07/30/18 13:00 Gram Stain - Final Sputum, Expectorated/Coughed 07/29/18 21:35 Legionella Antigen - Final Interface Orders Streptococcus pneumoniae Antigen (M - Final Laboratory Tests Past 24 Hrs 07/30/18 07/31/18 07/31/18 14:00 05:35 05:35 WBC 13.9 H RBC 4.02 L Hgb 11.2 L Hct 34.4 L MCV 85.6 MCH 27.9 MCHC 32.6 RDW 16.0 H RDW Differential 49.3 H Plt Count 283 MPV 10.4 Immature Gran % (Auto) 0.100 Neut % (Auto) 93.4 H Lymph % (Auto) 2.7 L [place] % (Auto) 3.8 Eos % (Auto) 0.0 Baso % (Auto) 0.0 Absolute Neuts (auto) 12.9 H Absolute Lymphs (auto) 0.38 L Total Counted Not Reportable Sodium 138 Potassium 4.1 Chloride 102 Carbon Dioxide 28.0 Anion Gap 8 BUN 25 H Creatinine 0.79 Estim Creat Clear Calc 59.31 Est GFR (MDRD) Af Amer 123 Est GFR (MDRD) Non-Af 102 BUN/Creatinine Ratio 31.5 H Glucose 136 H Calcium 8.8 MRSA (PCR) POSITIVE H Clinical Impression(s) from Imaging Studies Brain CT 07/29/18 21:14 IMPRESSION: Chronic age related changes and atrophy. No acute abnormality. Electronically Signed: Sy Moss MD at 22:53 EDT , Service support , Chest X-Ray 07/29/18 21:40 IMPRESSION: Severe COPD and pulmonary hypertension. Bilateral basilar infiltrates. Electronically Signed: Sy Moss MD at 22:10 EDT , Service support , Videofluoroscopic Swallow 07/30/18 13:30 IMPRESSION: Intermittent penetration and silent aspiration with ingestion of thin liquids. The swallow study findings were discussed with the patient by the speech pathologist at the conclusion of the examination. Please see speech pathology report for more information and recommendations. Electronically Signed: Bob Jolley, at 14:05 EDT , Service support , Medical Necessity - Tobacco Use Smoking Status: Former smoker Assessment/Plan All Active Problems (Last Updated 07/31/18 @ 12:05 by Benitez Kaur MD) Bilateral pneumonia (Acute) Acute respiratory failure with hypoxia (Acute) COPD exacerbation (Acute) RECOMMENDATIONS: 1. Continue broad-spectrum antimicrobials, pending infectious work-up. 2. Continue modified diet with supervision per speech therapy recommendations. 3. Continue bronchodilators and steroids as ordered. 4. Wean supplemental oxygen to maintain saturations at or above 90%. IMPRESSIONS: 1. Acute hypoxemic respiratory failure likely secondary to recurrent aspiration pneumonia The patient has known severe COPD based upon pulmonary function testing from several years ago. It is unclear which pulmonary provider the patient is currently following with. He reports that he does not utilize any inhalers at his baseline. I agree with continuing broad-spectrum antimicrobial coverage, pending infectious work-up. Clinical concern for recurrent aspiration pneumonia. If the patient were to become less responsive, would obtain arterial blood gas and initiate bilevel therapy, if clinically indicated. The patient is DNR CCA without plans for intubation. Agree with continuing scheduled bronchodilators and steroids for now. 2. Personal history of empyema/COPD/multiple sclerosis/chronic pain syndrome/depression/severe immobility and deconditioning Complicates care, management, recovery and prognosis. Physical therapy and speech therapy following. Continue dietary recommendations per speech therapy. This note was generated with [employer] software. It may contain incorrect words, spelling, and punctuation that were not noted in checking the note before signing. Code Visit Inpatient E&M: 18206 Subs Hosp L2
[2018-07-31] MEDS: DALFAMPRIDINE 10 MG TAB.ER.12H PO ×2 (09:45→22:10)
[2018-07-31] MEDS: DULoxetine Hcl 60 MG Capsule PO (09:46)
[2018-07-31] MEDS: Enoxaparin 40 MG/0.4 ML Syringe SC (09:46)
[2018-07-31] MEDS: Losartan Potassium 100 MG Tablet PO (09:46)
[2018-07-31] MEDS: carBAMazepine 200 MG Tablet PO ×2 (09:49→22:10)
[2018-07-31] MEDS: Pantoprazole Sodium 40 MG Tablet PO (09:49)
[2018-07-31] MEDS: Dronabinol 2.5 MG Capsule PO ×2 (09:59→22:10)
--- NOTE | 2018-07-31 10:47 | PN_ITS ---
<Isabella Irby - Last Filed: 07/31/18 10:51> Patient Problems: Active and Suspected Problems (Last Reviewed 04/27/18 @ 14:37 by Seema Posadas) Bilateral pneumonia (Acute) Acute respiratory failure with hypoxia (Acute) COPD exacerbation (Acute) Subjective: Patient seen and examined. Much more alert today. Patient reports improvement in breathing and overall feels improved. Speech therapy at bedside. Able to tolerate oral intake with modified consistencies. - Physical Exam General: Alert, Oriented x3, Cooperative HEENT: Atraumatic, PERRLA, EOMI, Normocephalic Neck: Supple, No JVD, Negative Carotid Bruits Lungs: Diminished, Rhonchi Cardiovascular: Regular rate, Regular Rhythm, Normal S1, Normal S2, No murmurs Abdomen: Bowel Sounds Present, Soft, Non Tender, Non-Distended, - - PEG tube in place Extremities: No clubbing, No cyanosis, No edema, Capillary Refill Less than 3 Seconds Skin: No rashes, No breakdown Musculoskeletal: No Tenderness to Palpation of Joints or Extremities, Cachexia, Muscle Wasting Neurological: Cranial nerves II-XII grossly intact, Neuro grossly intact Psych/Mental Status: Flat Affect Vital Signs Temp Pulse Resp BP Pulse Ox 98.1 F 92 17 104/52 L 93 07/31/18 09:21 07/31/18 09:21 07/31/18 09:21 07/31/18 09:21 07/31/18 09:21 Oxygen Flow Rate (L/min) 4.5 Oxygen Delivery Method Nasal Cannula Weight: 138 lb 7.205 oz Body Mass Index (BMI) 20.4 Intake and Output for Last 24 Hours 07/29/18 07/30/18 07/31/18 23:59 23:59 23:59 Intake Total 1769.5 / 1769.5 764 / 764 Output Total 500 / 500 275 / 275 Balance 1269.5 / 1269.5 489 / 489 Microbiology Past 72 Hours 07/30/18 13:00 Gram Stain - Final Sputum, Expectorated/Coughed 07/29/18 21:35 Legionella Antigen - Final Interface Orders Streptococcus pneumoniae Antigen (M - Final Laboratory Tests Past 24 Hrs 07/30/18 07/31/18 07/31/18 14:00 05:35 05:35 WBC 13.9 H RBC 4.02 L Hgb 11.2 L Hct 34.4 L MCV 85.6 MCH 27.9 MCHC 32.6 RDW 16.0 H RDW Differential 49.3 H Plt Count 283 MPV 10.4 Immature Gran % (Auto) 0.100 Neut % (Auto) 93.4 H Lymph % (Auto) 2.7 L [place] % (Auto) 3.8 Eos % (Auto) 0.0 Baso % (Auto) 0.0 Absolute Neuts (auto) 12.9 H Absolute Lymphs (auto) 0.38 L Total Counted Not Reportable Sodium 138 Potassium 4.1 Chloride 102 Carbon Dioxide 28.0 Anion Gap 8 BUN 25 H Creatinine 0.79 Estim Creat Clear Calc 59.31 Est GFR (MDRD) Af Amer 123 Est GFR (MDRD) Non-Af 102 BUN/Creatinine Ratio 31.5 H Glucose 136 H Calcium 8.8 MRSA (PCR) POSITIVE H Medical Necessity - Tobacco Use Smoking Status: Former smoker Assessment/Plan All Active Problems (Last Reviewed 04/27/18 @ 14:37 by Seema Posadas) Bilateral pneumonia (Acute) Acute respiratory failure with hypoxia (Acute) COPD exacerbation (Acute) 1. Acute sepsis secondary to acute hypoxic respiratory failure as a result of recurrent suspected aspiration pneumonia/pneumococcal pneumonia and exacerbation of COPD-complicated history of empyema and thoracotomy. Speech therapy consult. IV Zosyn and IV vancomycin, MRSA PCR positive. Pulmonary medicine following. Albuterol and DuoNeb aerosols. IV Solu-Medrol. Continue supplement oxygen to maintain O2 at or above 90%. Walking pulse ox prior to discharge. Sputum culture pending. Blood culture pending. Urine positive for pneumococcal pneumonia. Patient underwent modified barium swallow which showed aspiration on thin liquids. Continue modified diet per speech therapy recommendations. 2. 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 Every 2 hours turns. Continue home Copaxone, Tegretol, Cymbalta and Ampyra regimen. Status post PEG tube placement. Speech therapy consult. 3. Chronic pain syndrome-PRN pain regimen. 4. Hypertension-stable, continue home losartan, amlodipine regimen. 5. Depression-continue home Cymbalta regimen. 6. GERD-continue PPI. 7. Chronic normocytic anemia-mildly decreased from admission, suspect secondary to hemodilution. However, still at baseline. Trend CBC. 8. Mild hypovolemic hyponatremia-resolved. DVT prophylaxis- Lovenox az Code Status: DNR-CCA, no intubation This patient was seen by LAWR[facility] under the supervision of Dr. Kaur. <Benitez Kaur E - Last Filed: 07/31/18 12:11> - Physical Exam Vital Signs Temp Pulse Resp BP Pulse Ox 98.1 F 92 17 104/52 L 93 07/31/18 09:21 07/31/18 09:21 07/31/18 09:21 07/31/18 09:21 07/31/18 09:21 Oxygen Flow Rate (L/min) 4.5 Oxygen Delivery Method Nasal Cannula Weight: 138 lb 7.205 oz Body Mass Index (BMI) 20.4 Intake and Output for Last 24 Hours 07/29/18 07/30/18 07/31/18 23:59 23:59 23:59 Intake Total 1769.5 / 1769.5 764 / 764 Output Total 500 / 500 275 / 275 Balance 1269.5 / 1269.5 489 / 489 Microbiology Past 72 Hours 07/30/18 13:00 Gram Stain - Final Sputum, Expectorated/Coughed 07/29/18 21:35 Legionella Antigen - Final Interface Orders Streptococcus pneumoniae Antigen (M - Final Laboratory Tests Past 24 Hrs 07/30/18 07/31/18 07/31/18 14:00 05:35 05:35 WBC 13.9 H RBC 4.02 L Hgb 11.2 L Hct 34.4 L MCV 85.6 MCH 27.9 MCHC 32.6 RDW 16.0 H RDW Differential 49.3 H Plt Count 283 MPV 10.4 Immature Gran % (Auto) 0.100 Neut % (Auto) 93.4 H Lymph % (Auto) 2.7 L [place] % (Auto) 3.8 Eos % (Auto) 0.0 Baso % (Auto) 0.0 Absolute Neuts (auto) 12.9 H Absolute Lymphs (auto) 0.38 L Total Counted Not Reportable Sodium 138 Potassium 4.1 Chloride 102 Carbon Dioxide 28.0 Anion Gap 8 BUN 25 H Creatinine 0.79 Estim Creat Clear Calc 59.31 Est GFR (MDRD) Af Amer 123 Est GFR (MDRD) Non-Af 102 BUN/Creatinine Ratio 31.5 H Glucose 136 H Calcium 8.8 MRSA (PCR) POSITIVE H Assessment/Plan Hospitalist note: I am seeing this patient in conjunction with Isabella Irby. I independently seen and examined the patient. progress note above, laboratory data and imaging studies reviewed and I concur with the above treatment plan. Today, patient was seen and examined. Reportedly, patient was more lethargic and sleepy yesterday but today, he is more alert and oriented. He reported improvement of his breathing and he feels better. Still complaining of mild cough, no sputum production. He is down to 4 L of oxygen, other vital signs are stable. - Physical Exam General: Alert, Oriented x3, Cooperative, minimally short of breath. HEENT: Atraumatic, PERRLA, EOMI. Neck: Supple, No JVD, Negative Carotid Bruits, Trachea Midline, Thyroid Normal. Lungs: Decreased breath sounds bilateral, bilateral rhonchi, No wheeze, No rales. Cardiovascular: Regular rate, Regular Rhythm, Normal S1, Normal S2, PMI Normal. Abdomen: Bowel Sounds Present, Soft, Non Tender, Non-Distended, No Hepato- splenomegaly. Extremities: No clubbing, No cyanosis, No edema Skin: No rashes, No breakdown Neurological: Cranial nerves are intact, neuro grossly intact. Assessment and plan: #1 acute sepsis/suspected bilateral aspiration pneumonia: He is on IV vancomycin and Zosyn. He has been afebrile, white blood cell count is trending down. Urine was positive for pneumococcal antigen. Blood and sputum cultures are pending. Plan to continue same treatment. #2 acute hypoxic respiratory failure: Secondary to patient to acute COPD exacerbation. He is on IV steroids, IV antibiotics and bronchodilators. Patient has been on BiPAP and high flow oxygen. This morning, he is down to 4 L. He reported improvement of his shortness of breath. Plan to continue IV antibiotics and bronchodilators as well as IV steroids. #3 acute COPD exacerbation: On IV antibiotics and steroids as well as bronchodi lators. Plan as above. #4 other chronic medical problems: Continue current medications as above. This note was generated with [employer] software. It may contain incorrect words, spelling, and punctuation that were not noted in checking the note before signing. Code Visit Inpatient E&M: 44960 Subs Hosp L2
[2018-07-31] MEDS: Polyethylene Glycol 3350 17 GM PACKET GT (16:32)
--- NOTE | 2018-07-31 19:56 | CPS ---
Discussed with patient about wearing BiPAP tonight. Patient refusing to wear BiPAP tonight.
[2018-07-31] MEDS: Docusate Sodium 100 MG Capsule 200 MG PO (22:11)
[2018-08-01] VITALS (14 sets, daily range): BP systolic 116–142; BP diastolic 66–87; PULSE 68–92; RESP 16–24; TEMP 36.5–37.2; O2SAT 90–95
[2018-08-01] MEDS: Vancomycin IV 1,000 MG/200 ML BAG 200 MG IV (06:26)
[2018-08-01] MEDS: 0.9% NaCl Peripheral Flush Adult/Peds IV (06:26)
[2018-08-01 06:50] LABS: Absolute Lymphocyte Count 0.74 X10^3/ul (0.83-4.51); Absolute Neutrophil Count 11.4 X10^3/uL (2.0-7.7); Basophil# 0.01 X10^3/uL; Basophil% 0.1 % (0-1); Eosinophil# 0.01 X10^3/uL; Eosinophils% 0.1 % (0-5); Hematocrit 33.1 % (40-54); Hemoglobin 11.1 g/dl (13.0-16.5); Lymphocyte # 0.74 X10^3/ul (4.0); Lymphocyte % 5.6 % (19-41); Mean Corp Hgb Conc 33.5 g/gl (32-36); Mean Corpuscular Hgb 28.8 pg (27.0-32.0); Mean Corpuscular Volume 85.8 fL (80-94); Mean Platelet Vol. 10.3 fl (6.2-12.0); Monocyte# 0.97 X10^3/uL; Monocyte% 7.4 % (0-10); Neutrophil # 11.39 X10^3/uL (2.7-7.7); Neutrophil % 86.5 % (47-70); Platelet Count 313 K/mm3 (150-450); RBC Distribution Width CV 15.7 % (11.6-14.6); RBC Distribution Width SD 47.2 fl (35.1-43.9); Red Blood Count 3.86 M/mm3 (4.6-6.2); White Blood Count 13.2 K/mm3 (4.4-11.0)
[2018-08-01 07:00] LABS: Anion Gap 5 (5-15); BUN 24 mg/dL (7-18); BUN/Creat Ratio 31.6 RATIO (10-20); Calcium,Total 8.8 mg/dL (8.5-10.1); Chloride 99 mmol/L (98-107); Creatinine, Serum 0.76 mg/dL (0.70-1.30); EST Glomerular Filtration Rate 107 mL/min (>60); Est Glom Filt Rate - Afr Amer 130 mL/min (>60); Estimated Creatinine Clearance 59.31 ml/min; Glucose 99 mg/dL (74-106); Potassium 4.4 mmol/L (3.5-5.1); Sodium Level 134 mmol/L (136-145)
[2018-08-01 07:02] LABS: Vancomycin, Trough Level 13.9 ug/mL (5.0-15.0)
--- NOTE | 2018-08-01 07:12 | PCM.RX.CS ---
Consult Pharmacy has been consulted to manage selected antiobiotic: Vancomycin Type of Consult: Follow-up Suspected Infection: Pneumonia Prior Doses of Antibiotics Received/Current Regimen: Currently on 1000mg IV q12h Labs: Sodium 134 mmol/L (136-145) L 08/01/18 06:05 Potassium 4.4 mmol/L (3.5-5.1) 08/01/18 06:05 Chloride 99 mmol/L (98-107) 08/01/18 06:05 Carbon Dioxide 30.0 mmol/L (21.0-32.0) 08/01/18 06:05 Anion Gap 5 (5-15) 08/01/18 06:05 BUN 24 mg/dL (7-18) H 08/01/18 06:05 Creatinine 0.76 mg/dL (0.70-1.30) 08/01/18 06:05 Est GFR (MDRD) Af Amer 130 mL/min (>60) 08/01/18 06:05 Est GFR (MDRD) Non-Af 107 mL/min (>60) 08/01/18 06:05 BUN/Creatinine Ratio 31.6 RATIO (10-20) H 08/01/18 06:05 Glucose 99 mg/dL (74-106) 08/01/18 06:05 Vancomycin Trough 13.9 ug/mL (5.0-15.0) 08/01/18 06:05 Microbiology: Microbiology 07/30/18 13:00 Sputum, Expectorated/Coughed Gram Stain - Final 07/30/18 13:00 Sputum, Expectorated/Coughed Respiratory Culture - Preliminary Alpha hemolytic organism 07/29/18 21:35 Interface Orders Legionella Antigen - Final 07/29/18 21:35 Interface Orders Streptococcus pneumoniae Antigen (M - Final Weight used for dosin kg Goal Trough: 15-20 mcg/mL Pharmacy Plan for Drug Dosing: Trough drawn before this morning's dose was 13.9 mg/L. Will increase dose slightly to 1250mg IV q12h to attempt to get the next trough within the goal range of 15-20. Obtain the next trough before the 4th new dose. Pharmacy Service will continue to monitor and adjust dosing as required. Follow-Up Labs: Trough Vancomycin Labs to be done on [date and time ordered]: 08/03/18 05:30
[2018-08-01 07:13] LABS: POSITIVE COUNT NO; POSITIVE DIFFERENTIAL NO; POSITIVE MORPHOLOGY NO
--- NOTE | 2018-08-01 08:07 | PN_ITS ---
Patient Problems: Active and Suspected Problems (Last Updated 07/31/18 @ 12:05 by Benitez Kaur MD) Bilateral pneumonia (Acute) Acute respiratory failure with hypoxia (Acute) COPD exacerbation (Acute) Subjective: The patient was seen and examined at the bedside this morning. Events from the last 24 hours have been reviewed. The patient is currently afebrile, hemodynamically stable and maintaining appropriate oxygen saturations on 3 L/min via nasal cannula. The patient reports feeling quite tired this morning. Objective: The patient's most recent lab work, culture data and imaging studies have all been personally reviewed. Blood cultures are pending. Sputum culture is growing an alpha hemolytic organism. Strep and urine Legionella antigens were negative. MRSA screen was positive. Modified barium swallow demonstrated that the patient was overtly aspirating on thin liquids. - Physical Exam General: Alert, Cooperative, - - Quite fatigued in appearance HEENT: Atraumatic, PERRLA, Normocephalic Oral: No Gingival or Mucosal Lesions/ Ulcerations Neck: Supple, No Nodes, Trachea Midline Lungs: Diminished, Rhonchi Cardiovascular: Regular rate, Regular Rhythm, Normal S1, Normal S2, No murmurs Abdomen: Bowel Sounds Present, Soft, Non Tender, - - + G-tube in place Extremities: No clubbing, No cyanosis, No edema Skin: - - No significant change from previous Musculoskeletal: Cachexia, Muscle Wasting Lymphatic: No Cervical, Supraclavicular, or Inguinal Adenopathy Neurological: - - Neurologically unchanged from previous exams Psych/Mental Status: Flat Affect Vital Signs Temp Pulse Resp BP Pulse Ox 97.8 F 68 16 116/66 95 08/01/18 04:20 08/01/18 07:07 08/01/18 04:20 08/01/18 04:20 08/01/18 04:20 Oxygen Flow Rate (L/min) 3 Oxygen Delivery Method Nasal Cannula Weight: 138 lb 7.205 oz Body Mass Index (BMI) 20.4 Intake and Output for Last 24 Hours 07/30/18 07/31/18 08/01/18 23:59 23:59 23:59 Intake Total 1769.5 / 1769.5 3206.3 / 3206.3 223.2 / 223.2 Output Total 500 / 500 1525 / 1525 650 / 650 Balance 1269.5 / 1269.5 1681.3 / 1681.3 -426.8 / -426.8 Microbiology Past 72 Hours 07/30/18 13:00 Gram Stain - Final Sputum, Expectorated/Coughed Respiratory Culture - Preliminary Alpha hemolytic organism 07/29/18 21:35 Legionella Antigen - Final Interface Orders Streptococcus pneumoniae Antigen (M - Final Laboratory Tests Past 24 Hrs 08/01/18 08/01/18 08/01/18 06:05 06:05 06:05 WBC 13.2 H RBC 3.86 L Hgb 11.1 L Hct 33.1 L MCV 85.8 MCH 28.8 MCHC 33.5 RDW 15.7 H RDW Differential 47.2 H Plt Count 313 MPV 10.3 Immature Gran % (Auto) 0.300 Neut % (Auto) 86.5 H Lymph % (Auto) 5.6 L Logan % (Auto) 7.4 Eos % (Auto) 0.1 Baso % (Auto) 0.1 Absolute Neuts (auto) 11.4 H Absolute Lymphs (auto) 0.74 L Total Counted Not Reportable Sodium 134 L Potassium 4.4 Chloride 99 Carbon Dioxide 30.0 Anion Gap 5 BUN 24 H Creatinine 0.76 Estim Creat Clear Calc 59.31 Est GFR (MDRD) Af Amer 130 Est GFR (MDRD) Non-Af 107 BUN/Creatinine Ratio 31.6 H Glucose 99 Calcium 8.8 Vancomycin Trough 13.9 Clinical Impression(s) from Imaging Studies Brain CT 07/29/18 21:14 IMPRESSION: Chronic age related changes and atrophy. No acute abnormality. Electronically Signed: Sy Moss MD at 22:53 EDT , Service support , Chest X-Ray 07/29/18 21:40 IMPRESSION: Severe COPD and pulmonary hypertension. Bilateral basilar infiltrates. Electronically Signed: Sy Moss MD at 22:10 EDT , Service support , Videofluoroscopic Swallow 07/30/18 13:30 IMPRESSION: Intermittent penetration and silent aspiration with ingestion of thin liquids. The swallow study findings were discussed with the patient by the speech pathologist at the conclusion of the examination. Please see speech pathology report for more information and recommendations. Electronically Signed: Bob Jolley, at 14:05 EDT , Service support , Medical Necessity - Tobacco Use Smoking Status: Former smoker Assessment/Plan All Active Problems (Last Updated 07/31/18 @ 12:05 by Benitez Kaur MD) Bilateral pneumonia (Acute) Acute respiratory failure with hypoxia (Acute) COPD exacerbation (Acute) RECOMMENDATIONS: 1. Continue broad-spectrum antimicrobials. 2. Continue modified diet with supervision per speech therapy recommendations. 3. Continue bronchodilators and steroids as ordered. 4. Wean supplemental oxygen to maintain saturations at or above 90%. IMPRESSIONS: 1. Acute hypoxemic respiratory failure likely secondary to recurrent aspiration pneumonia The patient has known severe COPD based upon pulmonary function testing from several years ago. It is unclear which pulmonary provider the patient is currently following with. He reports that he does not utilize any inhalers at his baseline. I agree with continuing broad-spectrum antimicrobial coverage, pending infectious work-up. Clinical concern for recurrent aspiration pneumonia. If the patient were to become less responsive, would obtain arterial blood gas and initiate bilevel therapy, if clinically indicated. The patient is DNR CCA without plans for intubation. Agree with continuing scheduled bronchodilators and steroids for now. 2. Personal history of empyema/COPD/multiple sclerosis/chronic pain syndrome/depression/severe immobility and deconditioning Complicates care, management, recovery and prognosis. Physical therapy and speech therapy following. Continue dietary recommendations per speech therapy. This note was generated with [employer] dictation software. It may contain incorrect words, spelling, and punctuation that were not noted in checking the note before signing. Code Visit Inpatient E&M: 24650 Subs Hosp L2
[2018-08-01] MEDS: Ipratropium/Albuterol Sulfate 3 ML AMPUL.NEB INHALATION ×4 (11:06→22:51)
[2018-08-01] MEDS: DALFAMPRIDINE 10 MG TAB.ER.12H PO ×2 (11:40→21:10)
[2018-08-01] MEDS: Dronabinol 2.5 MG Capsule PO (11:41)
[2018-08-01] MEDS: Losartan Potassium 100 MG Tablet PO (11:41)
[2018-08-01] MEDS: DULoxetine Hcl 60 MG Capsule PO (11:41)
[2018-08-01] MEDS: Enoxaparin 40 MG/0.4 ML Syringe SC (11:41)
[2018-08-01] MEDS: Polyethylene Glycol 3350 17 GM PACKET GT (11:42)
[2018-08-01] MEDS: carBAMazepine 200 MG Tablet PO ×2 (11:43→21:10)
[2018-08-01] MEDS: amLODIPine 5 MG Tablet PO (11:43)
[2018-08-01] MEDS: Pantoprazole Sodium 40 MG Tablet PO (11:43)
--- NOTE | 2018-08-01 12:55 | PN_ITS ---
<Isabella Irby - Last Filed: 08/01/18 13:17> Patient Problems: Active and Suspected Problems (Last Updated 07/31/18 @ 12:05 by Benitez Kaur MD) Bilateral pneumonia (Acute) Acute respiratory failure with hypoxia (Acute) COPD exacerbation (Acute) Subjective: Patient seen and examined. Complains of generalized fatigue today, does not want to work with therapy or sit up to eat. at bedside encouraging participation with therapy and oral intake. - Physical Exam General: Alert, Oriented x3, Cooperative HEENT: Atraumatic, PERRLA, EOMI, Normocephalic Neck: Supple, No JVD, Negative Carotid Bruits Lungs: Diminished, Rhonchi Cardiovascular: Regular rate, Regular Rhythm, Normal S1, Normal S2, No murmurs Abdomen: Bowel Sounds Present, Soft, Non Tender, Non-Distended, - - PEG tube in place Extremities: No clubbing, No cyanosis, No edema, Capillary Refill Less than 3 Seconds Skin: No rashes, No breakdown Musculoskeletal: No Tenderness to Palpation of Joints or Extremities, Cachexia, Muscle Wasting Neurological: Cranial nerves II-XII grossly intact, Neuro grossly intact, - - Global weakness. Psych/Mental Status: Flat Affect Vital Signs Temp Pulse Resp BP Pulse Ox 97.7 F L 88 24 H 142/73 H 90 08/01/18 09:53 08/01/18 11:07 08/01/18 11:07 08/01/18 09:53 08/01/18 11:07 Oxygen Flow Rate (L/min) 5 Oxygen Delivery Method Nasal Cannula Weight: 138 lb 7.205 oz Body Mass Index (BMI) 20.4 Intake and Output for Last 24 Hours 07/30/18 07/31/18 08/01/18 23:59 23:59 23:59 Intake Total 1769.5 / 1769.5 3206.3 / 3206.3 223.2 / 223.2 Output Total 500 / 500 1525 / 1525 650 / 650 Balance 1269.5 / 1269.5 1681.3 / 1681.3 -426.8 / -426.8 Microbiology Past 72 Hours 07/30/18 13:00 Gram Stain - Final Sputum, Expectorated/Coughed Respiratory Culture - Preliminary Streptococcus pneumoniae Presumptive C albicans 07/29/18 21:21 Blood Culture - Preliminary Blood Culture (Wb) - Anticubital Left No growth in 48 hours. 07/29/18 21:21 Blood Culture - Preliminary Blood Culture (Wb) - Right Forearm No growth in 48 hours. 07/29/18 21:35 Legionella Antigen - Final Interface Orders Streptococcus pneumoniae Antigen (M - Final Laboratory Tests Past 24 Hrs 08/01/18 08/01/18 08/01/18 06:05 06:05 06:05 WBC 13.2 H RBC 3.86 L Hgb 11.1 L Hct 33.1 L MCV 85.8 MCH 28.8 MCHC 33.5 RDW 15.7 H RDW Differential 47.2 H Plt Count 313 MPV 10.3 Immature Gran % (Auto) 0.300 Neut % (Auto) 86.5 H Lymph % (Auto) 5.6 L Mccracken % (Auto) 7.4 Eos % (Auto) 0.1 Baso % (Auto) 0.1 Absolute Neuts (auto) 11.4 H Absolute Lymphs (auto) 0.74 L Total Counted Not Reportable Sodium 134 L Potassium 4.4 Chloride 99 Carbon Dioxide 30.0 Anion Gap 5 BUN 24 H Creatinine 0.76 Estim Creat Clear Calc 59.31 Est GFR (MDRD) Af Amer 130 Est GFR (MDRD) Non-Af 107 BUN/Creatinine Ratio 31.6 H Glucose 99 Calcium 8.8 Vancomycin Trough 13.9 Medical Necessity - Tobacco Use Smoking Status: Former smoker Assessment/Plan All Active Problems (Last Updated 07/31/18 @ 12:05 by Benitez Kaur MD) Bilateral pneumonia (Acute) Acute respiratory failure with hypoxia (Acute) COPD exacerbation (Acute) 1. Acute sepsis secondary to acute hypoxic respiratory failure as a result of recurrent suspected aspiration pneumonia/pneumococcal pneumonia and exacerbation of COPD-complicated history of empyema and thoracotomy. Speech therapy consulted. IV Zosyn and IV vancomycin, MRSA PCR positive. Pulmonary medicine following. Albuterol and DuoNeb aerosols. IV Solu-Medrol. Continue supplement oxygen to maintain O2 at or above 90%. Walking pulse ox prior to discharge. Sputum culture shows Streptococcus pneumonia and presumptive C albicans. Blood culture shows no growth in 48 hours. Urine positive for pneumococcal pneumonia. Patient underwent modified barium swallow which showed aspiration on thin liquids. Continue modified diet per speech therapy recommendations. 2. 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 Every 2 hours turns. Continue home Copaxone, Tegretol, Cymbalta and Ampyra regimen. Status post PEG tube placement. Speech therapy consult. 3. Chronic pain syndrome-PRN pain regimen. 4. Hypertension-stable, continue home losartan, amlodipine regimen. 5. Depression-continue home Cymbalta regimen. 6. GERD-continue PPI. 7. Chronic normocytic anemia-mildly decreased from admission, suspect secondary to hemodilution. However, still at baseline. Trend CBC. 8. Mild hypovolemic hyponatremia-resolved. DVT prophylaxis- Lovenox sc Code Status: DNR-CCA, no intubation Discharge planning: Patient has bed available at TCU, anticipate patient will be ready for discharge to TCU tomorrow, 08/02/2018. However, now requesting rehab unit where patient has gone in the past given MS diagnosis. Discussed with case management, patient would not be able to go to rehab unit until IF he was approved. Discussed this with and she would like to attempt rehab at discharge if possible. PT recommending SNF and do not feel he has the physical capability of participating in 3 hours of therapy at this time. This patient was seen by MAURI Cho under the supervision of Dr. Kaur. <Benitez Kaur E - Last Filed: 08/01/18 13:32> - Physical Exam Vital Signs Temp Pulse Resp BP Pulse Ox 97.7 F L 88 24 H 142/73 H 90 08/01/18 09:53 08/01/18 11:07 08/01/18 11:07 08/01/18 09:53 08/01/18 11:07 Oxygen Flow Rate (L/min) 4 Oxygen Delivery Method Nasal Cannula Weight: 138 lb 7.205 oz Body Mass Index (BMI) 20.4 Intake and Output for Last 24 Hours 07/30/18 07/31/18 08/01/18 23:59 23:59 23:59 Intake Total 1769.5 / 1769.5 3206.3 / 3206.3 223.2 / 223.2 Output Total 500 / 500 1525 / 1525 650 / 650 Balance 1269.5 / 1269.5 1681.3 / 1681.3 -426.8 / -426.8 Microbiology Past 72 Hours 05/24/19 13:00 Gram Stain - Final Sputum, Expectorated/Coughed Respiratory Culture - Preliminary Streptococcus pneumoniae Presumptive C albicans 07/29/18 21:21 Blood Culture - Preliminary Blood Culture (Wb) - Anticubital Left No growth in 48 hours. 07/29/18 21:21 Blood Culture - Preliminary Blood Culture (Wb) - Right Forearm No growth in 48 hours. 07/29/18 21:35 Legionella Antigen - Final Interface Orders Streptococcus pneumoniae Antigen (M - Final Laboratory Tests Past 24 Hrs 08/01/18 08/01/18 08/01/18 06:05 06:05 06:05 WBC 13.2 H RBC 3.86 L Hgb 11.1 L Hct 33.1 L MCV 85.8 MCH 28.8 MCHC 33.5 RDW 15.7 H RDW Differential 47.2 H Plt Count 313 MPV 10.3 Immature Gran % (Auto) 0.300 Neut % (Auto) 86.5 H Lymph % (Auto) 5.6 L Mccracken % (Auto) 7.4 Eos % (Auto) 0.1 Baso % (Auto) 0.1 Absolute Neuts (auto) 11.4 H Absolute Lymphs (auto) 0.74 L Total Counted Not Reportable Sodium 134 L Potassium 4.4 Chloride 99 Carbon Dioxide 30.0 Anion Gap 5 BUN 24 H Creatinine 0.76 Estim Creat Clear Calc 59.31 Est GFR (MDRD) Af Amer 130 Est GFR (MDRD) Non-Af 107 BUN/Creatinine Ratio 31.6 H Glucose 99 Calcium 8.8 Vancomycin Trough 13.9 Assessment/Plan Hospitalist note: I am seeing this patient in conjunction with Isabella Irby. I independently seen and examined the patient. progress note above and laboratory data reviewed and I agree with the above treatment plan. Today, patient complains of being very weak and fatigued. Breathing is getting better, he is down to 2 L of oxygen. Other vital signs are stable. - Physical Exam General: Alert, Oriented x3, Cooperative, minimally short of breath. HEENT: Atraumatic, PERRLA, EOMI. Neck: Supple, No JVD, Negative Carotid Bruits, Trachea Midline, Thyroid Normal. Lungs: Decreased breath sounds bilateral, bilateral rhonchi, No wheeze, No rales. Cardiovascular: Regular rate, Regular Rhythm, Normal S1, Normal S2, PMI Normal. Abdomen: Bowel Sounds Present, Soft, Non Tender, Non-Distended, No Hepato- splenomegaly. Extremities: No clubbing, No cyanosis, No edema Skin: No rashes, No breakdown Neurological: Cranial nerves are intact, neuro grossly intact. Assessment and plan: #1 acute sepsis/suspected bilateral aspiration pneumonia: Remained on IV vancomycin and Zosyn. He has been afebrile, white blood cell count is trending down. Urine was positive for pneumococcal antigen. Blood culture showed no growth in 48 hours. Sputum culture revealed Streptococcus pneumonia and episodes of Kim albicans. Plan: DC IV vancomycin, continue IV Zosyn, possible DC to snf facility tomorrow. #2 acute hypoxic respiratory failure: Secondary to patient to acute COPD exacerbation. He is on IV steroids, IV antibiotics and bronchodilators. Oxygenation is getting better, he is down to 2 L. He reported continued slow improvement of his symptoms. Plan to taper IV steroids, continue other treatments. #3 acute COPD exacerbation: On IV antibiotics and steroids as well as bronchodilators. Plan as above. #4 other chronic medical problems: Continue current medications as above. This note was generated with [employer] dictation software. It may contain incorrect words, spelling, and punctuation that were not noted in checking the note before signing. Code Visit Inpatient E&M: 24462 Subs Hosp L2
[2018-08-01] MEDS: GLATIRAMER ACETATE 40 MG/ML SQ (13:36)
[2018-08-01] MEDS: Docusate Sodium 100 MG Capsule 200 MG PO (21:09)
[2018-08-02] VITALS (12 sets, daily range): BP systolic 120–149; BP diastolic 80–89; PULSE 70–90; RESP 16–20; TEMP 36.6–36.9; O2SAT 92–96
[2018-08-02 06:38] LABS: Anion Gap 7 (5-15); BUN 19 mg/dL (7-18); BUN/Creat Ratio 26.1 RATIO (10-20); Calcium,Total 8.5 mg/dL (8.5-10.1); Chloride 98 mmol/L (98-107); Creatinine, Serum 0.73 mg/dL (0.70-1.30); EST Glomerular Filtration Rate 112 mL/min (>60); Est Glom Filt Rate - Afr Amer 136 mL/min (>60); Estimated Creatinine Clearance 59.31 ml/min; Glucose 85 mg/dL (74-106); Potassium 4.9 mmol/L (3.5-5.1); Sodium Level 133 mmol/L (136-145)
[2018-08-02 07:00] LABS: Hemoglobin 11.6 g/dl (13.0-16.5); Mean Corp Hgb Conc 33.1 g/gl (32-36); Mean Corpuscular Hgb 28.5 pg (27.0-32.0); Mean Platelet Vol. 9.6 fl (6.2-12.0); Platelet Count 329 K/mm3 (150-450); RBC Distribution Width CV 15.6 % (11.6-14.6); RBC Distribution Width SD 49.4 fl (35.1-43.9); Red Blood Count 4.07 M/mm3 (4.6-6.2); White Blood Count 7.5 K/mm3 (4.4-11.0)
[2018-08-02 07:01] LABS: Scan Indicated on CBC? Y/N NO
[2018-08-02] MEDS: Ipratropium/Albuterol Sulfate 3 ML AMPUL.NEB INHALATION ×4 (07:02→22:14)
--- NOTE | 2018-08-02 09:38 | PN_ITS ---
Patient Problems: Active and Suspected Problems (Last Updated 07/31/18 @ 12:05 by Benitez Kaur MD) Bilateral pneumonia (Acute) Acute respiratory failure with hypoxia (Acute) COPD exacerbation (Acute) Subjective: Patient did okay overnight. Patient reports subjective improvement in dyspnea compared to yesterday. Patient still requiring supplemental oxygen to maintain saturations. Patient denies any current chest pain, abdominal pain, nausea or vomiting. - Physical Exam General: Alert, Oriented x3, Cooperative, - - Mild conversational dyspnea HEENT: Atraumatic, PERRLA, EOMI, Normocephalic, - - Scleral injection without icterus Oral: Moist Mucosa, No Gingival or Mucosal Lesions/ Ulcerations Neck: Supple, No JVD, No Nodes, Trachea Midline Lungs: No wheeze, No rales, Diminished, Rhonchi - Right greater than left, - - Symmetric expansion. Cardiovascular: Regular rate, Regular Rhythm, Normal S1, Normal S2, No murmurs, No rub noted, No Gallop Abdomen: Bowel Sounds Present, Soft, Non Tender, Non-Distended, - - G-tube is clean, dry and intact Extremities: No clubbing, No cyanosis, No edema, Capillary Refill Less than 3 Seconds Skin: No rashes, No breakdown Musculoskeletal: No Tenderness to Palpation of Joints or Extremities Lymphatic: No Cervical, Supraclavicular, or Inguinal Adenopathy Neurological: - - Poor generalized strength and low muscle tone. Able to move all extremities. Psych/Mental Status: Appropriate, Flat Affect Vital Signs Temp Pulse Resp BP Pulse Ox 36.6 C 72 20 H 124/80 H 93 08/02/18 03:40 08/02/18 07:19 08/02/18 07:02 08/02/18 03:40 08/02/18 07:02 Oxygen Flow Rate (L/min) 3 Oxygen Delivery Method Nasal Cannula Weight: 62.8 kg Body Mass Index (BMI) 20.4 Intake and Output for Last 24 Hours 07/31/18 08/01/18 08/02/18 23:59 23:59 23:59 Intake Total 3206.3 / 3206.3 3247.0 / 3247.0 446 / 446 Output Total 1525 / 1525 2100 / 2100 1550 / 1550 Balance 1681.3 / 1681.3 1147.0 / 1147.0 -1104 / -1104 Microbiology Past 72 Hours 07/30/18 13:00 Gram Stain - Final Sputum, Expectorated/Coughed Respiratory Culture - Preliminary Streptococcus pneumoniae Presumptive C albicans 07/29/18 21:21 Blood Culture - Preliminary Blood Culture (Wb) - Anticubital Left No growth in 48 hours. 07/29/18 21:21 Blood Culture - Preliminary Blood Culture (Wb) - Right Forearm No growth in 48 hours. Laboratory Tests Past 24 Hrs 08/02/18 08/02/18 06:05 06:50 WBC 7.5 RBC 4.07 L Hgb 11.6 L Hct 35.0 L MCV 86.0 MCH 28.5 MCHC 33.1 RDW 15.6 H RDW Differential 49.4 H Plt Count 329 MPV 9.6 Sodium 133 L Potassium 4.9 Chloride 98 Carbon Dioxide 28.0 Anion Gap 7 BUN 19 H Creatinine 0.73 Estim Creat Clear Calc 59.31 Est GFR (MDRD) Af Amer 136 Est GFR (MDRD) Non-Af 112 BUN/Creatinine Ratio 26.1 H Glucose 85 Calcium 8.5 Medical Necessity - Tobacco Use Smoking Status: Former smoker Assessment/Plan All Active Problems (Last Updated 07/31/18 @ 12:05 by Benitez Kaur MD) Bilateral pneumonia (Acute) Acute respiratory failure with hypoxia (Acute) COPD exacerbation (Acute) RECOMMENDATIONS: 1. Consider narrowing of antibiotic spectrum 2. Continue modified diet with supervision per speech therapy recommendations. 3. Continue bronchodilators and steroids as ordered. 4. Wean supplemental oxygen to maintain saturations at or above 90%. IMPRESSIONS: 1. Acute hypoxemic respiratory failure likely secondary to recurrent as piration pneumonia and pneumococcus The patient has known severe COPD based upon pulmonary function testing from several years ago. It is unclear which pulmonary provider the patient is currently following with. He reports that he does not utilize any inhalers at his baseline. Patient is now growing pneumococcus and there is some concern for recurrent aspiration. Antibiotic spectrum can likely be narrowed at this point. We will need to check patient's saturations with exertion prior to discharge. Vital the patient complies with speech therapy recommendations. 2. Personal history of empyema/COPD/multiple sclerosis/chronic pain syndrome/depression/severe immobility and deconditioning Complicates care, management, recovery and prognosis. Physical therapy and speech therapy following. Continue dietary recommendations per speech therapy. Code Visit Inpatient E&M: 42498 Subs Hosp L2
[2018-08-02] MEDS: DALFAMPRIDINE 10 MG TAB.ER.12H PO ×2 (10:42→21:37)
[2018-08-02] MEDS: Losartan Potassium 100 MG Tablet PO (10:43)
[2018-08-02] MEDS: DULoxetine Hcl 60 MG Capsule PO (10:43)
[2018-08-02] MEDS: Enoxaparin 40 MG/0.4 ML Syringe SC (10:43)
[2018-08-02] MEDS: amLODIPine 5 MG Tablet PO (10:44)
[2018-08-02] MEDS: Pantoprazole Sodium 40 MG Tablet PO (10:44)
[2018-08-02] MEDS: Polyethylene Glycol 3350 17 GM PACKET GT (10:44)
[2018-08-02] MEDS: carBAMazepine 200 MG Tablet PO ×2 (10:45→21:38)
--- NOTE | 2018-08-02 15:08 | PCM.PN.HOSP ---
Patient Problems: Active and Suspected Problems (Last Updated 07/31/18 @ 12:05 by Benitez Kaur MD) Bilateral pneumonia (Acute) Acute respiratory failure with hypoxia (Acute) COPD exacerbation (Acute) Subjective: No new complaints. Vitals/I&O's: Vital Signs Temp Pulse Resp BP Pulse Ox 36.7 C 70 18 149/89 H 93 08/02/18 09:40 08/02/18 11:52 08/02/18 09:40 08/02/18 09:40 08/02/18 09:40 Oxygen Flow Rate (L/min) 2 Oxygen Delivery Method Nasal Cannula Weight: 62.8 kg Body Mass Index (BMI) 20.4 Intake and Output for Last 24 Hours 07/31/18 08/01/18 08/02/18 23:59 23:59 23:59 Intake Total 3206.3 / 3206.3 3247.0 / 3247.0 1822 / 1822 Output Total 1525 / 1525 2100 / 2100 2465 / 2465 Balance 1681.3 / 1681.3 1147.0 / 1147.0 -643 / -643 General: Alert, No apparent distress HEENT: Atraumatic, Normocephalic Oral: Moist Mucosa, No Gingival or Mucosal Lesions/ Ulcerations Neck: No Nodes, Thyroid Normal Size and Texture Lungs: Clear to auscultation, No rhonchi, No wheeze, Diminished Cardiovascular: Regular rate, Regular Rhythm, Normal S1, Normal S2, No murmurs Abdomen: Bowel Sounds Present, Soft, Non Tender, Non-Distended, No Hepato-splenomegaly Extremities: No edema, No Calf Tenderness Skin: No rashes, No breakdown Psych/Mental Status: Normal Affect, Appropriate Microbiology Past 72 Hours 07/30/18 13:00 Sputum, Expectorated/Coughed Gram Stain - Final 07/30/18 13:00 Sputum, Expectorated/Coughed Respiratory Culture - Preliminary Streptococcus pneumoniae Presumptive C albicans 07/29/18 21:21 Blood Culture (Wb) - Anticubital Left Blood Culture - Preliminary No growth in 48 hours. 07/29/18 21:21 Blood Culture (Wb) - Right Forearm Blood Culture - Preliminary No growth in 48 hours. Laboratory Results 08/02/18 06:05: Sodium 133 L, Potassium 4.9, Chloride 98, Carbon Dioxide 28.0, Anion Gap 7, BUN 19 H, Creatinine 0.73, Estim Creat Clear Calc 59.31, Est GFR (MDRD) Af Amer 136, Est GFR (MDRD) Non-Af 112, BUN/Creatinine Ratio 26.1 H, Glucose 85, Calcium 8.5 08/02/18 06:50: WBC 7.5, RBC 4.07 L, Hgb 11.6 L, Hct 35.0 L, MCV 86.0, MCH 28.5, MCHC 33.1, RDW 15.6 H, RDW Differential 49.4 H, Plt Count 329, MPV 9.6 Current Medications Acetaminophen (Tylenol Liquid) 650 mg PO Q6H PRN PRN PRN Reason: Mild pain 1-3/Temp > 100.7 F Albuterol Sulfate (Ventolin Aerosols) 2.5 mg INHALATION Q2H PRN PRN PRN Reason: SOB/Wheezing Albuterol/Ipratropium (Duoneb) 3 ml INHALATION Q4H.RT [facility] Last Admin: 08/02/18 11:10 Dose: Not Given Amlodipine Besylate (Norvasc) 5 mg PO DAILY [facility] Last Admin: 08/02/18 10:44 Dose: 5 mg Carbamazepine (Tegretol) 200 mg PO BID [facility] Last Admin: 08/02/18 10:45 Dose: 200 mg Cholecalciferol (Vitamin D) 5,000 unit PO DAILY [facility] Last Admin: 08/02/18 10:45 Dose: 5,000 unit Docusate Sodium (Colace) 200 mg PO QHS [facility] Last Admin: 08/01/18 21:09 Dose: 200 mg Duloxetine HCl (Cymbalta) 60 mg PO DAILY [facility] Last Admin: 08/02/18 10:43 Dose: 60 mg Enoxaparin Sodium (Lovenox) 40 mg SC DAILY@1000 [facility] Last Admin: 08/02/18 10:43 Dose: 40 mg Glatiramer Acetate (Copaxone) 40 mg SQ SuTuTh [facility] Last Admin: 08/01/18 13:36 Dose: 40 mg Guaifenesin (Robitussin) 30 ml PO Q6 [facility] Last Admin: 08/02/18 12:29 Dose: Not Given Ceftriaxone Sodium 2 gm/ (Sodium Chloride) 50 mls @ 100 mls/hr IV Q24 [facility] Losartan Potassium (Cozaar) 100 mg PO DAILY [facility] Last Admin: 08/02/18 10:43 Dose: 100 mg Methylprednisolone (Solu-Medrol) 40 mg IV Q12 [facility] Last Admin: 08/02/18 10:44 Dose: 40 mg Ondansetron HCl (Zofran) 4 mg IV Q8H PRN PRN PRN Reason: NAUSEA/VOMITING Pantoprazole Sodium (Protonix) 40 mg PO DAILY [facility] Last Admin: 08/02/18 10:44 Dose: 40 mg Polyethylene Glycol (Miralax) 17 gm GT DAILY [facility] Last Admin: 08/02/18 10:44 Dose: 17 gm Sodium Chloride () 5 - 15 ml IV UD PRN PRN Reason: SALINE FLUSH Last Admin: 08/01/18 06:26 Dose: 10 ml Medical Necessity - Tobacco Use Smoking Status: Former smoker Assessment/Plan All Active Problems (Last Updated 07/31/18 @ 12:05 by Benitez Kaur MD) Bilateral pneumonia (Acute) Acute respiratory failure with hypoxia (Acute) COPD exacerbation (Acute) 1. pneumococcal pneumonia confirmed on SCx on CTX (changed from pip/tazo) doubt C. albicans true pathogen, therefore, will hold off on antifungals at this time 2. AECOPD on BDs, steroids 3. Acute hypoxic respiratory failure POA hypoxia on ABG was on BiPAP on arrival improving 4. Sepsis POA 2/2 #1 improving 5. Debility to SNF anticipate in 1-2 days 6. VTE prophy: LMWH. Code Visit Inpatient E&M: 06245 Subs Hosp L2
--- NOTE | 2018-08-02 15:17 | PN_ITS ---
Patient Problems: Active and Suspected Problems (Last Updated 07/31/18 @ 12:05 by Benitez Kaur MD) Bilateral pneumonia (Acute) Acute respiratory failure with hypoxia (Acute) COPD exacerbation (Acute) Subjective: No new complaints. Vitals/I&O's: Vital Signs Temp Pulse Resp BP Pulse Ox 36.7 C 70 18 149/89 H 93 08/02/18 09:40 08/02/18 11:52 08/02/18 09:40 08/02/18 09:40 08/02/18 09:40 Oxygen Flow Rate (L/min) 2 Oxygen Delivery Method Nasal Cannula Weight: 62.8 kg Body Mass Index (BMI) 20.4 Intake and Output for Last 24 Hours 07/31/18 08/01/18 08/02/18 23:59 23:59 23:59 Intake Total 3206.3 / 3206.3 3247.0 / 3247.0 1822 / 1822 Output Total 1525 / 1525 2100 / 2100 2465 / 2465 Balance 1681.3 / 1681.3 1147.0 / 1147.0 -643 / -643 General: Alert, No apparent distress HEENT: Atraumatic, Normocephalic Oral: Moist Mucosa, No Gingival or Mucosal Lesions/ Ulcerations Neck: No Nodes, Thyroid Normal Size and Texture Lungs: Clear to auscultation, No rhonchi, No wheeze, Diminished Cardiovascular: Regular rate, Regular Rhythm, Normal S1, Normal S2, No murmurs Abdomen: Bowel Sounds Present, Soft, Non Tender, Non-Distended, No Hepato- splenomegaly Extremities: No edema, No Calf Tenderness Skin: No rashes, No breakdown Psych/Mental Status: Normal Affect, Appropriate Microbiology Past 72 Hours 07/30/18 13:00 Sputum, Expectorated/Coughed Gram Stain - Final 07/30/18 13:00 Sputum, Expectorated/Coughed Respiratory Culture - Preliminary Streptococcus pneumoniae Presumptive C albicans 07/29/18 21:21 Blood Culture (Wb) - Anticubital Left Blood Culture - Preliminary No growth in 48 hours. 07/29/18 21:21 Blood Culture (Wb) - Right Forearm Blood Culture - Preliminary No growth in 48 hours. Laboratory Results 08/02/18 06:05: Sodium 133 L, Potassium 4.9, Chloride 98, Carbon Dioxide 28.0, Anion Gap 7, BUN 19 H, Creatinine 0.73, Estim Creat Clear Calc 59.31, Est GFR (MDRD) Af Amer 136, Est GFR (MDRD) Non-Af 112, BUN/Creatinine Ratio 26.1 H, Glucose 85, Calcium 8.5 08/02/18 06:50: WBC 7.5, RBC 4.07 L, Hgb 11.6 L, Hct 35.0 L, MCV 86.0, MCH 28.5, MCHC 33.1, RDW 15.6 H, RDW Differential 49.4 H, Plt Count 329, MPV 9.6 Current Medications Acetaminophen (Tylenol Liquid) 650 mg PO Q6H PRN PRN PRN Reason: Mild pain 1-3/Temp > 100.7 F Albuterol Sulfate (Ventolin Aerosols) 2.5 mg INHALATION Q2H PRN PRN PRN Reason: SOB/Wheezing Albuterol/Ipratropium (Duoneb) 3 ml INHALATION Q4H.RT [facility] Last Admin: 08/02/18 11:10 Dose: Not Given Amlodipine Besylate (Norvasc) 5 mg PO DAILY [facility] Last Admin: 08/02/18 10:44 Dose: 5 mg Carbamazepine (Tegretol) 200 mg PO BID [facility] Last Admin: 08/02/18 10:45 Dose: 200 mg Cholecalciferol (Vitamin D) 5,000 unit PO DAILY [facility] Last Admin: 08/02/18 10:45 Dose: 5,000 unit Docusate Sodium (Colace) 200 mg PO QHS [facility] Last Admin: 08/01/18 21:09 Dose: 200 mg Duloxetine HCl (Cymbalta) 60 mg PO DAILY [facility] Last Admin: 08/02/18 10:43 Dose: 60 mg Enoxaparin Sodium (Lovenox) 40 mg SC DAILY@1000 [facility] Last Admin: 08/02/18 10:43 Dose: 40 mg Glatiramer Acetate (Copaxone) 40 mg SQ SuTuTh [facility] Last Admin: 08/01/18 13:36 Dose: 40 mg Guaifenesin (Robitussin) 30 ml PO Q6 [facility] Last Admin: 08/02/18 12:29 Dose: Not Given Ceftriaxone Sodium 2 gm/ (Sodium Chloride) 50 mls @ 100 mls/hr IV Q24 [facility] Losartan Potassium (Cozaar) 100 mg PO DAILY [facility] Last Admin: 08/02/18 10:43 Dose: 100 mg Methylprednisolone (Solu-Medrol) 40 mg IV Q12 [facility] Last Admin: 08/02/18 10:44 Dose: 40 mg Ondansetron HCl (Zofran) 4 mg IV Q8H PRN PRN PRN Reason: NAUSEA/VOMITING Pantoprazole Sodium (Protonix) 40 mg PO DAILY [facility] Last Admin: 08/02/18 10:44 Dose: 40 mg Polyethylene Glycol (Miralax) 17 gm GT DAILY [facility] Last Admin: 08/02/18 10:44 Dose: 17 gm Sodium Chloride () 5 - 15 ml IV UD PRN PRN Reason: SALINE FLUSH Last Admin: 08/01/18 06:26 Dose: 10 ml Medical Necessity - Tobacco Use Smoking Status: Former smoker Assessment/Plan All Active Problems (Last Updated 07/31/18 @ 12:05 by Benitez Kaur MD) Bilateral pneumonia (Acute) Acute respiratory failure with hypoxia (Acute) COPD exacerbation (Acute) 1. pneumococcal pneumonia * confirmed on SCx * on CTX (changed from pip/tazo) * doubt C. albicans true pathogen, therefore, will hold off on antifungals at this time 2. AECOPD * on BDs, steroids 3. Acute hypoxic respiratory failure * POA * hypoxia on ABG * was on BiPAP on arrival * improving 4. Sepsis * POA * 2/2 #1 * improving 5. Debility * to SNF * anticipate in 1-2 days 6. VTE prophy: LMWH. Code Visit Inpatient E&M: 89507 Subs Hosp L2
[2018-08-02] MEDS: 0.9% NaCl Peripheral Flush Adult/Peds IV ×2 (21:38→21:39)
[2018-08-03 03:30] VITALS: BP 128/81; PULSE 78; RESP 16; TEMP 36.4; O2SAT 94
[2018-08-03 03:37] VITALS: PULSE 74; RESP 16
[2018-08-03] MEDS: Ipratropium/Albuterol Sulfate 3 ML AMPUL.NEB INHALATION ×2 (03:37→10:31)
[2018-08-03 06:36] LABS: Vancomycin, Trough Level 2.8 ug/mL (5.0-15.0)
--- NOTE | 2018-08-03 07:53 | PN_ITS ---
Patient Problems: Active and Suspected Problems (Last Updated 07/31/18 @ 12:05 by Benitez Kaur MD) Bilateral pneumonia (Acute) Acute respiratory failure with hypoxia (Acute) COPD exacerbation (Acute) Subjective: Patient did well overnight. No acute issues were reported. Patient reports no subjective change in overall condition. Patient remains on room air and no fevers were noted overnight. No cough is been reported. - Physical Exam General: Alert, Cooperative, No apparent distress, - - No conversational dyspnea appreciated. HEENT: Atraumatic, PERRLA, EOMI, Normocephalic, - - Slight scleral injection Oral: Moist Mucosa, No Gingival or Mucosal Lesions/ Ulcerations Neck: Supple, No JVD, No Nodes, Trachea Midline Lungs: No rhonchi, No wheeze, No rales, Diminished, - - Symmetric expansion. No dullness to percussion. Cardiovascular: Normal S1, Normal S2, No murmurs, Irregular Rate, No rub noted, No Gallop Abdomen: Bowel Sounds Present, Soft, Non Tender, Non-Distended Extremities: No clubbing, No cyanosis, No edema Skin: - - Scattered ecchymotic areas. Musculoskeletal: No Tenderness to Palpation of Joints or Extremities Lymphatic: No Cervical, Supraclavicular, or Inguinal Adenopathy Neurological: Cranial nerves II-XII grossly intact, Neuro grossly intact, Motor Exam 5/5 strength throughout Psych/Mental Status: Flat Affect Vital Signs Temp Pulse Resp BP Pulse Ox 36.4 C L 74 16 128/81 H 94 08/03/18 03:30 08/03/18 03:37 08/03/18 03:37 08/03/18 03:30 08/03/18 03:30 Oxygen Flow Rate (L/min) 2 Oxygen Delivery Method Nasal Cannula Weight: 62.8 kg Body Mass Index (BMI) 20.4 Intake and Output for Last 24 Hours 08/01/18 08/02/18 08/03/18 23:59 23:59 23:59 Intake Total 3247.0 / 3247.0 3434 / 3434 100 / 100 Output Total 2100 / 2100 3615 / 3615 1100 / 1100 Balance 1147.0 / 1147.0 -181 / -181 -1000 / -1000 Microbiology Past 72 Hours 07/30/18 13:00 Gram Stain - Final Sputum, Expectorated/Coughed Respiratory Culture - Preliminary Streptococcus pneumoniae Presumptive C albicans 07/29/18 21:21 Blood Culture - Preliminary Blood Culture (Wb) - Anticubital Left No growth in 48 hours. 07/29/18 21:21 Blood Culture - Preliminary Blood Culture (Wb) - Right Forearm No growth in 48 hours. Laboratory Tests Past 24 Hrs 08/03/18 05:33 Vancomycin Trough 2.8 L Medical Necessity - Tobacco Use Smoking Status: Former smoker Assessment/Plan All Active Problems (Last Updated 07/31/18 @ 12:05 by Benitez Kaur MD) Bilateral pneumonia (Acute) Acute respiratory failure with hypoxia (Acute) COPD exacerbation (Acute) RECOMMENDATIONS: 1. Likely okay to complete 10 days of antibiotics 2. Continue modified diet with supervision per speech therapy recommendati ons. 3. Continue bronchodilators and transition to prednisone as ordered. 4. Wean supplemental oxygen to maintain saturations at or above 90%. IMPRESSIONS: 1. Acute hypoxemic respiratory failure likely secondary to recurrent aspiration pneumonia and pneumococcus The patient has known severe COPD based upon pulmonary function testing from several years ago. It is unclear which pulmonary provider the patient is currently following with. He reports that he does not utilize any inhalers at his baseline. Patient is now growing pneumococcus and there is some concern for recurrent aspiration. Patient should complete 10 days of antibiotics. Patient continues to improve with modified diet. Patient should have a walking oximetry prior to discharge. Patient can be weaned from prednisone over the next 12 to 14 days. 2. Personal history of empyema/COPD/multiple sclerosis/chronic pain syndrome/depression/severe immobility and deconditioning Complicates care, management, recovery and prognosis. Physical therapy and speech therapy following. Continue dietary recommendations per speech therapy. Code Visit Inpatient E&M: 43514 Subs Hosp L2
--- NOTE | 2018-08-03 09:18 | CASEMGMT ---
SW spoke w/[facility] in TCU, they can take pt. SW spoke w/pt, agreeable to TCU. Pt asked if this is where he was last time, SW explained that last time he was in rehab, though in looking at the therapy notes, it seems this may be too much therapy for pt at present. Pt states understanding. Pt agreeable to SW calling pt's . SW called pt's , let her know TCU can take pt. SW also spoke w/her about rehab, she also thought that rehab may be too much therapy for him. She is also in agreement w/pt going to TCU when ready. SW will continue to follow for transfer to TCU. CHUYITA Daniels
[2018-08-03 09:41] VITALS: BP 157/85; PULSE 81; RESP 19; TEMP 36.8; O2SAT 96
[2018-08-03] MEDS: Pantoprazole Sodium 40 MG Tablet PO (09:44)
[2018-08-03] MEDS: DALFAMPRIDINE 10 MG TAB.ER.12H PO (09:44)
[2018-08-03] MEDS: carBAMazepine 200 MG Tablet PO (09:46)
[2018-08-03] MEDS: predniSONE 20 MG Tablet 40 MG PO (10:06)
[2018-08-03] MEDS: 0.9% NaCl Peripheral Flush Adult/Peds IV (10:07)
[2018-08-03] MEDS: amLODIPine 5 MG Tablet PO (10:07)
[2018-08-03] MEDS: Enoxaparin 40 MG/0.4 ML Syringe SC (10:08)
[2018-08-03] MEDS: Losartan Potassium 100 MG Tablet PO (10:13)
[2018-08-03] MEDS: DULoxetine Hcl 60 MG Capsule PO (10:14)
[2018-08-03] MEDS: GLATIRAMER ACETATE 40 MG/ML SQ (10:17)
[2018-08-03 10:31] VITALS: PULSE 78; RESP 16; O2SAT 92
--- NOTE | 2018-08-03 11:02 | PCM.TXEXTCAR ---
- Diet 07/30/18 15:03 Diet: Regular Diet Food consistency:: Soft Liquid Consistency:: [place] Thick Is pt able to select menu?: No Diet Comments: Supervision by staff / family; seated in chair; meds w/ purees / nect whole - Wound(s) BUE's' Wound Type: Skin Tear - Suggestions for Active Care Change Position every (hours): 2 - head of bed 30 degrees - Therapies Weight Bearing: Full weight bearing Physical Therapy: Eval and Treat Occupational Therapy: Eval and Treat Speech Therapy: Eval and Treat - Allergies/Procedures Done in Hospital Allergies/Adverse Reactions: Allergies hydrochlorothiazide Allergy (Verified 07/29/18 20:57) Unknown Procedures: None - Type of Care/Length of Stay Estimated LOS: Convalescent Care Less Than 30 days Type of Care Needed: Skilled Rehab Potential: Poor Prognosis: Fair - Additional Orders/Day of Discharge Day of Discharge: 08/03/18 - Dietary and Speech Recommendations Dietitian Recommendations/Changes: If pt to remain NPO, recommend Vital AF 1.2 via PEG at goal rate of 60mL/hour w/ 100mL flush every 4 hours to provide 1728 calories, 108 g protein, and 1767mL total fluid/day. Would start at rate of 20mL/hour and increase by 20mL every 8 hours as pt tolerates until goal rate achieved. If appropriate for PO intake, will adjust enteral nutrition recommendations as indicated. Rec regular diet- consistency per [employer]. - Follow Up Care Primary Care Physician: Mario Giraldo MD [Primary Care Provider] - Within 1 Week
--- NOTE | 2018-08-03 11:08 | PCM.DC.SUM ---
Discharge Date and Diagnosis - Problem List Patient Problems: Active and Suspected Problems (Last Updated 07/31/18 @ 12:05 by Benitez Kaur MD) Bilateral pneumonia (Acute) Acute respiratory failure with hypoxia (Acute) COPD exacerbation (Acute) Date of Admission: 07/29/18 Date of Discharge: 08/03/18 - Primary Discharge Diagnosis Active and Suspected Problems (Last Updated 07/31/18 @ 12:05 by Benitez Kaur MD) Bilateral pneumonia (Acute) Acute respiratory failure with hypoxia (Acute) COPD exacerbation (Acute) 1. pneumococcal pneumonia confirmed on SCx on CTX (changed from pip/tazo) doubt C. albicans true pathogen, therefore, will hold off on antifungals at this time change to Augmentin for 5 more days + 3 more days of Azithromycin 2. AECOPD on BDs, steroids prednisone taper 3. Acute hypoxic respiratory failure POA hypoxia on ABG was on BiPAP on arrival improving 4. Sepsis POA 2/2 #1 improving - Secondary Discharge Diagnosis Chronic Problems (Last Updated 07/31/18 @ 12:05 by Benitez Kaur MD) Depression (Chronic) Physical debility (Chronic) Hypertension (Chronic) COPD (chronic obstructive pulmonary disease) (Chronic) Multiple sclerosis (Chronic) Dysphagia (Chronic) Anemia (Chronic) BPH (benign prostatic hypertrophy) (Chronic) Vitamin D deficiency (Chronic) GERD (gastroesophageal reflux disease) (Chronic) Ulcerative esophagitis (Chronic) Gout (Chronic) Hospital Course and Treatment Imaging Results: Clinical Impression(s) from Imaging Studies Brain CT 07/29/18 21:14 IMPRESSION: Chronic age related changes and atrophy. No acute abnormality. Electronically Signed: Sy Moss MD at 22:53 EDT , Service support , Chest X-Ray 07/29/18 21:40 IMPRESSION: Severe COPD and pulmonary hypertension. Bilateral basilar infiltrates. Electronically Signed: Sy Moss MD at 22:10 EDT , Service support , Videofluoroscopic Swallow 07/30/18 13:30 IMPRESSION: Intermittent penetration and silent aspiration with ingestion of thin liquids. The swallow study findings were discussed with the patient by the speech pathologist at the conclusion of the examination. Please see speech pathology report for more information and recommendations. Electronically Signed: Bob Jolley, at 14:05 EDT , Service support , Consultations 07/30/18 07:01 Consult: Onc/Wound/tectonophysicist Routine Comment: Reason for Consult:: skin tears ble, buttocks with old abscess site Clifford Mccormick MD: [facility]. Operations: None Procedures: None Summary of Care Provided: The patient is a 73 year old M presents with shortness of breath. Patient also be notably confused as well. Patient was found to have pneumonia and actually sputum culture came back positive for pneumococcal pneumonia. Patient was changed from Zosyn to ceftriaxone. Patient continued to do well. Patient will be transitioned over to Augmentin XR plus azithromycin. Patient will complete a total of 10 days of antibiotics. Complicating this is patient had acute exacerbation of COPD patient was on bronchodilators as well as steroids. Transition over to prednisone today. Patient will complete a prednisone taper. [] Patient Problems: Active and Suspected Problems (Last Updated 07/31/18 @ 12:05 by Benitez Kaur MD) Bilateral pneumonia (Acute) Acute respiratory failure with hypoxia (Acute) COPD exacerbation (Acute) - Physical Exam General: Alert, - - Gaunt. Afebrile. HEENT: Atraumatic, Normocephalic Oral: Moist Mucosa Neck: No Nodes, Thyroid Normal Size and Texture Lungs: Clear to auscultation, Normal air movement, No rhonchi, No wheeze Cardiovascular: Regular rate, Regular Rhythm, Normal S1, Normal S2, No murmurs Abdomen: Bowel Sounds Present, Soft, Non Tender, Non-Distended, No Hepato-splenomegaly Extremities: No edema, No Calf Tenderness Skin: No rashes, No breakdown Psych/Mental Status: Normal Affect, Appropriate Vital Signs Temp Pulse Resp BP Pulse Ox 36.8 C 81 19 H 157/85 H 96 08/03/18 09:41 08/03/18 09:41 08/03/18 09:41 08/03/18 09:41 08/03/18 09:41 Oxygen Flow Rate (L/min) 2 Oxygen Delivery Method Nasal Cannula Weight: 62.8 kg Body Mass Index (BMI) 20.4 Intake and Output for Last 24 Hours 08/01/18 08/02/18 08/03/18 23:59 23:59 23:59 Intake Total 3247.0 / 3247.0 3434 / 3434 200 / 200 Output Total 2100 / 2100 3615 / 3615 1100 / 1100 Balance 1147.0 / 1147.0 -181 / -181 -900 / -900 Microbiology Past 72 Hours 07/30/18 13:00 Gram Stain - Final Sputum, Expectorated/Coughed Respiratory Culture - Preliminary Streptococcus pneumoniae Presumptive C albicans 07/29/18 21:21 Blood Culture - Preliminary Blood Culture (Wb) - Anticubital Left No growth in 48 hours. 07/29/18 21:21 Blood Culture - Preliminary Blood Culture (Wb) - Right Forearm No growth in 48 hours. Laboratory Tests Past 24 Hrs 08/03/18 05:33 Vancomycin Trough 2.8 L Discharge Activity: Return to Normal Activity Call your doctor if you observe: Fever of 101 or Higher, Shortness of breath Home Medications: Medications to take at Discharge Cholecalciferol (VIT D3) [Vitamin D3] 5,000 unit PO DAILY 02/20/14 Glatiramer Acetate [Copaxone] 40 mg SQ MOWEFR 04/19/16 coenzyme Q 10 10 mg capsule 100 mg PO ONCE 02/19/17 lansoprazole 30 mg capsule,delayed release 30 mg PO DAILY 02/19/17 ipratropium-albuterol 0.5 mg-3 mg(2.5 mg base)/3 mL nebulization soln 3 ml INHALATION TID #180 ml 03/24/17 budesonide 0.5 mg/2 mL suspension for nebulization 0.5 mg INHALATION QDAY #60 ml 03/25/17 Albuterol Sulfate [Proventil Hfa] 1.25 gm IH Q4H PRN 03/25/18 Amlodipine [Norvasc] 5 mg PO DAILY 03/25/18 Duloxetine Hcl [Cymbalta] 60 mg PO DAILY 03/25/18 Losartan Potassium [Cozaar] 100 mg PO DAILY 03/25/18 Vitamin B Comp W-C [[place] W/C Caplet, Thera B Comp/C] 1 cap PO DAILY 03/25/18 Dalfampridine [Ampyra] 10 mg PO BID@0900,2100 03/29/18 Carbamazepine [Tegretol] 150 mg PO BIDCM 07/29/18 Dronabinol [Marinol] 2.5 mg PO BID 07/29/18 Multivitamin [Once Daily] 1 each PO DAILY 07/29/18 Acetylcysteine 3 ml INHALATION BID 07/30/18 Calcium Citrate/Vitamin D3 [Calcium Citrate with D Tablet] 1 each PO BID 07/30/18 Docusate Sodium [Colace] 250 mg PO BID 07/30/18 Polyethylene Glycol 3350 [Miralax] 17 gm PO DAILY 07/30/18 Theophylline Anhydrous [Torsten-24] 100 mg PO DAILY 07/30/18 Amoxicillin/Potassium Clav [Augmentin Xr 1,000-62.5 Tab] 2 each PO Q12H #10 tab.er.12h 08/03/18 Azithromycin 500 mg PO DAILY #3 tablet 08/03/18 Prednisone 10 mg PO DAILY #30 tablet 08/03/18 Following Prescrptions Were Given to Patient: Amoxicillin/Potassium Clav [Augmentin Xr 1,000-62.5 Tab] 2 each PO Q12H #10 tab.er.12h Azithromycin 500 mg PO DAILY #3 tablet Prednisone 10 mg PO DAILY #30 tablet Primary Care Physician: Mario Giraldo MD [Primary Care Provider] - Within 1 Week Disposition: Half-Way facility Minutes spent on discharge:: 34 Patient Condition:: Fair Medical Necessity - Tobacco Use Smoking Status: Former smoker Meaningful Use Info Meaningful Use Diagnoses (Choose all that apply): None applicable Code Visit Inpatient E&M: 39429 Disch Hosp
--- NOTE | 2018-08-03 11:13 | DS.PCM_ITS ---
Discharge Date and Diagnosis - Problem List Patient Problems: Active and Suspected Problems (Last Updated 07/31/18 @ 12:05 by Benitez Kaur MD) Bilateral pneumonia (Acute) Acute respiratory failure with hypoxia (Acute) COPD exacerbation (Acute) Date of Admission: 07/29/18 Date of Discharge: 08/03/18 - Primary Discharge Diagnosis Active and Suspected Problems (Last Updated 07/31/18 @ 12:05 by Benitez Kaur MD) Bilateral pneumonia (Acute) Acute respiratory failure with hypoxia (Acute) COPD exacerbation (Acute) 1. pneumococcal pneumonia * confirmed on SCx * on CTX (changed from pip/tazo) * doubt C. albicans true pathogen, therefore, will hold off on antifungals at this time * change to Augmentin for 5 more days + 3 more days of Azithromycin 2. AECOPD * on BDs, steroids * prednisone taper 3. Acute hypoxic respiratory failure * POA * hypoxia on ABG * was on BiPAP on arrival * improving 4. Sepsis * POA * 2/2 #1 * improving - Secondary Discharge Diagnosis Chronic Problems (Last Updated 07/31/18 @ 12:05 by Benitez Kaur MD) Depression (Chronic) Physical debility (Chronic) Hypertension (Chronic) COPD (chronic obstructive pulmonary disease) (Chronic) Multiple sclerosis (Chronic) Dysphagia (Chronic) Anemia (Chronic) BPH (benign prostatic hypertrophy) (Chronic) Vitamin D deficiency (Chronic) GERD (gastroesophageal reflux disease) (Chronic) Ulcerative esophagitis (Chronic) Gout (Chronic) Hospital Course and Treatment Imaging Results: Clinical Impression(s) from Imaging Studies Brain CT 07/29/18 21:14 IMPRESSION: Chronic age related changes and atrophy. No acute abnormality. Electronically Signed: Sy Moss MD at 22:53 EDT , Service support , Chest X-Ray 07/29/18 21:40 IMPRESSION: Severe COPD and pulmonary hypertension. Bilateral basilar infiltrates. Electronically Signed: Sy Moss MD at 22:10 EDT , Service support , Videofluoroscopic Swallow 07/30/18 13:30 IMPRESSION: Intermittent penetration and silent aspiration with ingestion of thin liquids. The swallow study findings were discussed with the patient by the speech pathologist at the conclusion of the examination. Please see speech pathology report for more information and recommendations. Electronically Signed: Bob Jolley, at 14:05 EDT , Service support , Consultations 07/30/18 07:01 Consult: Onc/Wound/media traffic manager Routine Comment: Reason for Consult:: skin tears ble, buttocks with old abscess site Clifford Mccormick MD: [facility]. Operations: None Procedures: None Summary of Care Provided: The patient is a 73 year old M presents with shortness of breath. Patient also be notably confused as well. Patient was found to have pneumonia and actually sputum culture came back positive for pneumococcal pneumonia. Patient was changed from Zosyn to ceftriaxone. Patient continued to do well. Patient will be transitioned over to Augmentin XR plus azithromycin. Patient will complete a total of 10 days of antibiotics. Complicating this is patient had acute exacerbation of COPD patient was on bronchodilators as well as steroids. Transition over to prednisone today. Patient will complete a prednisone taper. [] Patient Problems: Active and Suspected Problems (Last Updated 07/31/18 @ 12:05 by Benitez Kaur MD) Bilateral pneumonia (Acute) Acute respiratory failure with hypoxia (Acute) COPD exacerbation (Acute) - Physical Exam General: Alert, - - Gaunt. Afebrile. HEENT: Atraumatic, Normocephalic Oral: Moist Mucosa Neck: No Nodes, Thyroid Normal Size and Texture Lungs: Clear to auscultation, Normal air movement, No rhonchi, No wheeze Cardiovascular: Regular rate, Regular Rhythm, Normal S1, Normal S2, No murmurs Abdomen: Bowel Sounds Present, Soft, Non Tender, Non-Distended, No Hepato- splenomegaly Extremities: No edema, No Calf Tenderness Skin: No rashes, No breakdown Psych/Mental Status: Normal Affect, Appropriate Vital Signs Temp Pulse Resp BP Pulse Ox 36.8 C 81 19 H 157/85 H 96 08/03/18 09:41 08/03/18 09:41 08/03/18 09:41 08/03/18 09:41 08/03/18 09:41 Oxygen Flow Rate (L/min) 2 Oxygen Delivery Method Nasal Cannula Weight: 62.8 kg Body Mass Index (BMI) 20.4 Intake and Output for Last 24 Hours 08/01/18 08/02/18 08/03/18 23:59 23:59 23:59 Intake Total 3247.0 / 3247.0 3434 / 3434 200 / 200 Output Total 2100 / 2100 3615 / 3615 1100 / 1100 Balance 1147.0 / 1147.0 -181 / -181 -900 / -900 Microbiology Past 72 Hours 07/30/18 13:00 Gram Stain - Final Sputum, Expectorated/Coughed Respiratory Culture - Preliminary Streptococcus pneumoniae Presumptive C albicans 07/29/18 21:21 Blood Culture - Preliminary Blood Culture (Wb) - Anticubital Left No growth in 48 hours. 07/29/18 21:21 Blood Culture - Preliminary Blood Culture (Wb) - Right Forearm No growth in 48 hours. Laboratory Tests Past 24 Hrs 08/03/18 05:33 Vancomycin Trough 2.8 L Discharge Activity: Return to Normal Activity Call your doctor if you observe: Fever of 101 or Higher, Shortness of breath Home Medications: Medications to take at Discharge Cholecalciferol (VIT D3) [Vitamin D3] 5,000 unit PO DAILY 02/20/14 Glatiramer Acetate [Copaxone] 40 mg SQ MOWEFR 04/19/16 coenzyme Q 10 10 mg capsule 100 mg PO ONCE 02/19/17 lansoprazole 30 mg capsule,delayed release 30 mg PO DAILY 02/19/17 ipratropium-albuterol 0.5 mg-3 mg(2.5 mg base)/3 mL nebulization soln 3 ml INHALATION TID #180 ml 03/24/17 budesonide 0.5 mg/2 mL suspension for nebulization 0.5 mg INHALATION QDAY #60 ml 03/25/17 Albuterol Sulfate [Proventil Hfa] 1.25 gm IH Q4H PRN 03/25/18 Amlodipine [Norvasc] 5 mg PO DAILY 03/25/18 Duloxetine Hcl [Cymbalta] 60 mg PO DAILY 03/25/18 Losartan Potassium [Cozaar] 100 mg PO DAILY 03/25/18 Vitamin B Comp W-C [Allbee W/C Caplet, Thera B Comp/C] 1 cap PO DAILY 03/25/18 Dalfampridine [Ampyra] 10 mg PO BID@0900,2100 03/29/18 Carbamazepine [Tegretol] 150 mg PO BIDCM 07/29/18 Dronabinol [Marinol] 2.5 mg PO BID 07/29/18 Multivitamin [Once Daily] 1 each PO DAILY 07/29/18 Acetylcysteine 3 ml INHALATION BID 07/30/18 Calcium Citrate/Vitamin D3 [Calcium Citrate with D Tablet] 1 each PO BID 07/30/18 Docusate Sodium [Colace] 250 mg PO BID 07/30/18 Polyethylene Glycol 3350 [Miralax] 17 gm PO DAILY 07/30/18 Theophylline Anhydrous [Torsten-24] 100 mg PO DAILY 07/30/18 Amoxicillin/Potassium Clav [Augmentin Xr 1,000-62.5 Tab] 2 each PO Q12H #10 tab.er.12h 08/03/18 Azithromycin 500 mg PO DAILY #3 tablet 08/03/18 Prednisone 10 mg PO DAILY #30 tablet 08/03/18 Following Prescrptions Were Given to Patient: Amoxicillin/Potassium Clav [Augmentin Xr 1,000-62.5 Tab] 2 each PO Q12H #10 tab.er.12h Azithromycin 500 mg PO DAILY #3 tablet Prednisone 10 mg PO DAILY #30 tablet Primary Care Physician: Mario Giraldo MD [Primary Care Provider] - Within 1 Week Disposition: Long-Term facility Minutes spent on discharge:: 34 Patient Condition:: Fair Medical Necessity - Tobacco Use Smoking Status: Former smoker Meaningful Use Info Meaningful Use Diagnoses (Choose all that apply): None applicable Code Visit Inpatient E&M: 77783 Disch Hosp
--- NOTE | 2018-08-03 11:19 | CASEMGMT ---
Pt is discharged to TCU. ELAINE faxed discharge instructions, no further needs, pt to TCU today. CHUYITA Daniels
--- NOTE | 2018-08-03 13:27 | NURSING ---
report called to tcu to Chhaya
== END 2018-08-03 14:31 | disposition skilled nursing facility (03) | DRG 871 ==
LOC: ED 21:01 → PCU 07-30 00:40
PROVIDERS: Family Medicine; Internal Medicine Critical Care Medicine; Nurse Practitioner Family; Admitting Provider Internal Medicine; Emergency Provider Emergency Medicine; Family Provider Family Medicine; PCP Family Medicine
DX: A41.9 Sepsis, unspecified organism (principal); J96.01 Acute respiratory failure with hypoxia; J13 Pneumonia due to Streptococcus pneumoniae; J69.0 Pneumonitis due to inhalation of food and vomit; E43 Unspecified severe protein-calorie malnutrition; J44.0 Chronic obstructive pulmonary disease with (acute) lower respiratory infection; J44.1 Chronic obstructive pulmonary disease with (acute) exacerbation; G35 Multiple sclerosis; G82.20 Paraplegia, unspecified; E87.1 Hypo-osmolality and hyponatremia; E86.1 Hypovolemia; R13.10 Dysphagia, unspecified; I10 Essential (primary) hypertension; I27.20 Pulmonary hypertension, unspecified; N40.0 Benign prostatic hyperplasia without lower urinary tract symptoms; Z79.899 Other long term (current) drug therapy; D63.8 Anemia in other chronic diseases classified elsewhere; E78.5 Hyperlipidemia, unspecified; E55.9 Vitamin D deficiency, unspecified; F32.9 Major depressive disorder, single episode, unspecified; K21.9 Gastro-esophageal reflux disease without esophagitis; G89.4 Chronic pain syndrome; Z66 Do not resuscitate; Z68.20 Body mass index [BMI] 20.0-20.9, adult; Z93.1 Gastrostomy status; Z99.3 Dependence on wheelchair; Z87.891 Personal history of nicotine dependence
CPT/HCPCS: 36415; 36600; 70450; 71045; 74230; 80048; 80053; 80156; 80202; 81001; 82803; 83605; 83735; 84443; 84484; 85025; 85027; 85610; 87040; 87070; 87077; 87186; 87205; 87449; 87641; 92526; 92610; 92611; 93005; 94002; 94003; 94640; 94668; 97110; 97162; 97166; 97530; 97535; 97802; 99285; J7030; J7040; J7050; A4216; J0696

== ENCOUNTER 2018-08-03 14:35 | Inpatient (IN) | payer MEDICARE, OTHER, SELFPAY ==
[2018-07-30 00:41] VITALS: BMI 20.4
[2018-08-03 14:48] VITALS: BP 131/81; PULSE 98; RESP 18; TEMP 36.8; O2SAT 2
--- NOTE | 2018-08-03 15:05 | NURSING ---
Patient admitted to room 7 from PCU via bed. Oriented to room and call light system explained.
[2018-08-03 15:18] VITALS: BP 131/81; PULSE 98; RESP 18; TEMP 36.8; O2SAT 2; BMI 19.8
[2018-08-03 15:25] VITALS: BMI 61.0
[2018-08-03] MEDS: Dronabinol 2.5 MG Capsule PO (19:03)
[2018-08-03] MEDS: carBAMazepine 200 MG/10 ML UDC 150 MG PO (19:03)
[2018-08-03] MEDS: Menthol/Lanolin/Calamine/Znox 113 GM Tube 1 APPLIC TOPICAL (19:07)
[2018-08-03] MEDS: Nystatin Powder 15gm Bottle 1 APPLIC TOPICAL (19:08)
[2018-08-03 19:30] VITALS: PULSE 97; RESP 24
[2018-08-03] MEDS: Ipratropium/Albuterol Sulfate 3 ML AMPUL.NEB INHALATION (19:30)
[2018-08-03] MEDS: Acetylcysteine 800 MG/4 ML VIAL.NEB. 600 MG INHALATION (19:30)
--- NOTE | 2018-08-03 20:21 | PCM.HP.STD ---
Problem List (1) Sepsis Status: Acute (2) Acute respiratory failure Status: Acute (3) Pneumococcal pneumonia Status: Acute (4) Aspiration pneumonia Status: Acute (5) COPD exacerbation Status: Acute (6) Ulcerative colitis Status: Chronic (7) Seizure disorder Status: Chronic (8) Appetite loss Status: Chronic (9) Depression Status: Chronic Qualifiers: (10) Hypertension Status: Chronic Qualifiers: (11) Multiple sclerosis Status: Chronic (12) Dysphagia Status: Chronic Qualifiers: (13) Anemia Status: Chronic (14) BPH (benign prostatic hypertrophy) Status: Chronic (15) Vitamin D deficiency Status: Chronic (16) GERD (gastroesophageal reflux disease) Status: Chronic Qualifiers: (17) Gout Status: Chronic Qualifiers: History of Present Illness Date of Admission: 08/03/18 Chief Complaint: Here for rehabilitation, strengthening, prior to discharge home with spouse. The patient is a 73 year old Male with below past medical history presented to [facility] Emergency Department 07/29/2018 with shortness of breath, fatigue. 07/29/2018 CT brain chronic involutional changes. Weak x few days, confusion, damian color, low pulsox. Fever 100.8. BiPAP started. EKG showed sinus tachycardia heart rate 112. WBC 17.4, BUN 21, INR 1.1, Tegretol 8.4. UA okay, Troponin negative, Lactic Acid okay. Chest X-ray showed severe COPD, pulmonary hypertension, Bibasilar infiltrates. Blood cultures sent. Rocephin, Zithromax IV given. 07/29/2018 Admit to Hospital. Rocephin, Zithromax for bilateral pneumonia. Bronchodilators, Solu-Medrol IV, Incentive Spirometry, VEST therapy for COPD. PT/OT for debility for Multiple Sclerosis. 07/30/2018 MBS recommended regular diet soft textures, nectar thick liquids. 07/30/2018 MRSA screen positive, Vancomycin added. IV Zosyn, Vancomycin for bilateral pneumonia. Code Status DNRCC-A. IV Zosyn changed to IV Ceftriaxone. IV Ceftriaxone changed to Augmentin. C. Albicans in sputum thought to be contaminant, no antifungal therapy necessary. Sputum culture grew Strep Pneumoniae. Prednisone taper for COPD exacerbation. 08/03/2018 Admit to TCU with debility, here for rehabilitation, strengthening, prior to discharge home with spouse. Past Medical History Past Medical History (Chronic Problems): Chronic Problems (Last Updated 07/31/18 @ 12:05 by Benitez Kaur MD) Ulcerative colitis (Chronic) Seizure disorder (Chronic) Appetite loss (Chronic) Depression (Chronic) Physical debility (Chronic) Hypertension (Chronic) COPD (chronic obstructive pulmonary disease) (Chronic) Multiple sclerosis (Chronic) Dysphagia (Chronic) Anemia (Chronic) BPH (benign prostatic hypertrophy) (Chronic) Vitamin D deficiency (Chronic) GERD (gastroesophageal reflux disease) (Chronic) Ulcerative esophagitis (Chronic) Gout (Chronic) Medical History: Medical History (Last Updated 07/31/18 @ 12:05 by Benitez Kaur MD) Depression (Chronic) F32.9 Physical debility (Chronic) R53.81 Hypertension (Chronic) I10 COPD (chronic obstructive pulmonary disease) (Chronic) J44.9 Multiple sclerosis (Chronic) G35 Dysphagia (Chronic) R13.10 Anemia (Chronic) D64.9 BPH (benign prostatic hypertrophy) (Chronic) N40.0 Vitamin D deficiency (Chronic) E55.9 GERD (gastroesophageal reflux disease) (Chronic) K21.9 Ulcerative esophagitis (Chronic) K22.10 Gout (Chronic) M10.9 Normal colonoscopy Open wound of buttock, complicated S31.809A Allergies hydrochlorothiazide Allergy (Verified 07/29/18 20:57) Unknown Home Medications: Ambulatory Orders Medication Instructions Recorded Cholecalciferol (VIT D3) [Vitamin 5,000 unit PO DAILY 02/20/14 D3] Glatiramer Acetate [Copaxone] 40 mg SQ MOWEFR 04/19/16 coenzyme Q 10 10 mg capsule 100 mg PO ONCE 02/19/17 lansoprazole 30 mg capsule,delayed 30 mg PO DAILY 02/19/17 release ipratropium-albuterol 0.5 mg-3 3 ml INHALATION TID #180 ml 03/24/17 mg(2.5 mg base)/3 mL nebulization soln budesonide 0.5 mg/2 mL suspension 0.5 mg INHALATION QDAY #60 ml 03/25/17 for nebulization Albuterol Sulfate [Proventil Hfa] 1.25 gm IH Q4H PRN 03/25/18 Amlodipine [Norvasc] 5 mg PO DAILY 03/25/18 Duloxetine Hcl [Cymbalta] 60 mg PO DAILY 03/25/18 Losartan Potassium [Cozaar] 100 mg PO DAILY 03/25/18 Vitamin B Comp W-C [Allbee W/C 1 cap PO DAILY 03/25/18 Caplet, Thera B Comp/C] Dalfampridine [Ampyra] 10 mg PO BID@0900,2100 03/29/18 Carbamazepine [Tegretol] 150 mg PO BIDCM 07/29/18 Dronabinol [Marinol] 2.5 mg PO BID 07/29/18 Multivitamin [Once Daily] 1 each PO DAILY 07/29/18 Acetylcysteine 3 ml INHALATION BID 07/30/18 Calcium Citrate/Vitamin D3 1 each PO BID 07/30/18 [Calcium Citrate with D Tablet] Docusate Sodium [Colace] 250 mg PO BID 07/30/18 Polyethylene Glycol 3350 [Miralax] 17 gm PO DAILY 07/30/18 Theophylline Anhydrous [Torsten-24] 100 mg PO DAILY 07/30/18 Amoxicillin/Potassium Clav 2 each PO Q12H 08/03/18 [Augmentin Xr 1,000-62.5 Tab] Azithromycin 500 mg PO DAILY 08/03/18 Prednisone 10 mg PO DAILY 08/03/18 Surgical History: Surgical History (Last Reviewed 04/27/18 @ 14:37 by Seema Posadas) History of esophagogastroduodenoscopy (EGD) Z98.890 S/P percutaneous endoscopic gastrostomy (PEG) tube placement Z93.1 Surgical History: - - Back surgery x2 (thoracic and cervical), PEG tube. Psychiatric History: Depression Lives: Spouse/ Significant Other Smoking Status: Former smoker Tobacco Use: Non-smoker Alcohol: None Drugs: None - *Family History Maternal Family History: Family History (Last Reviewed 04/27/18 @ 14:37 by Seema Posadas) Mother Colon cancer Breast cancer Lung cancer Father CAD (coronary artery disease) Heart disease History Items: Cancer - 70's Paternal Family History: Family History (Last Reviewed 04/27/18 @ 14:37 by Seema Posadas) Mother Colon cancer Breast cancer Lung cancer Father CAD (coronary artery disease) Heart disease History Items: Heart Disease - age 70's Review of Systems Constitutional: Reports: Weakness. Denies: Chills, Fever, Weight Change HEENT: Denies: Head Aches, Sinus Congestion, Sinus Drainage Cardiovascular: Denies: Chest Pain, Palpitations Respiratory: Denies: Cough, Shortness of breath at rest, Sputum production Gastrointestinal: Denies: Abdominal Pain, Nausea, Vomiting Genitourinary: Denies: Dysuria Musculoskeletal: Denies: Joint Pain, Joint Tenderness Skin: Denies: Rash, Wounds Neurological: Denies: Numbness, Tingling, Focal weakness Psychiatric: Denies: Anxiety, Depression, Homicidal Ideations, Suicidal Ideations Hematologic/ Lymphatic: Denies: Easy Bruising, Easy Bleeding VTE Information - Inpt Only VTE Present on Admission: No VTE Mechan Device Prophylaxis: Knee High JOSE CRUZ Hose VTE Pharm Prophylaxis ordered?: Yes Patient Problems: Active and Suspected Problems (Last Updated 07/31/18 @ 12:05 by Benitez Kaur MD) Sepsis (Acute) Acute respiratory failure (Acute) Pneumococcal pneumonia (Acute) Aspiration pneumonia (Acute) COPD exacerbation (Acute) - Physical Exam General: Alert, Oriented x3, Cooperative HEENT: Atraumatic, PERRLA, EOMI, Normocephalic Neck: Supple, No JVD, Negative Carotid Bruits Lungs: Normal air movement, Wheezes - Diffusely. Cardiovascular: Regular rate, No murmurs Abdomen: Bowel Sounds Present, Soft, Non Tender, - - PEG tube. Extremities: No edema, Capillary Refill Less than 3 Seconds Skin: No rashes, No breakdown Musculoskeletal: No Tenderness to Palpation of Joints or Extremities Neurological: Cranial nerves II-XII grossly intact Psych/Mental Status: Normal Affect, Appropriate Vital Signs Temp Pulse Resp BP Pulse Ox 98.2 F 98 18 131/81 H 2 08/03/18 15:18 08/03/18 15:18 08/03/18 15:18 08/03/18 15:18 08/03/18 15:18 Oxygen Delivery Method Nasal Cannula Weight: 61.054 kg Body Mass Index (BMI) 19.8 Assessment/Plan All Active Problems (Last Updated 07/31/18 @ 12:05 by Benitez Kaur MD) Sepsis (Acute) Acute respiratory failure (Acute) Pneumococcal pneumonia (Acute) Aspiration pneumonia (Acute) COPD exacerbation (Acute) Bilateral pneumonia (Acute) Acute respiratory failure with hypoxia (Acute) COPD exacerbation (Acute) 73 year old male with below past medical history hospitalized for sepsis secondary to S. Pneumo pneumonia, complicated by acute respiratory failure, COPD exacerbation, admitted to TCU with debility, here for rehabilitation, strengthening, prior to discharge home with spouse. Debility - PT/OT. Dysphagia - ST. Pain - Tylenol 1000MG Q6H PRN mild pain. Bowel - Miralax 17GM daily, Colace 240MG BID. Pneumonia vaccination - Administer Prevnar 13 and/or Pneumovax 23 as necessary. DVT Prophylaxis - Lovenox 40MG SC daily. COPD - Duoneb 3ML TID, Ventolin 1 puff Q4H PRN, Pulmicort 0.5MG BID, Theophylline 100MG daily, Prednisone taper. Congestion - Mucomyst 600MG BID. Hypertension - Losartan 100MG daily, Amlodipine 5MG daily. S. Pneumo pneumonia - Augmentin 875MG BID thru 08/06/2018, Zithromax 500MG daily thru 08/06/2018. Seizure Disorder - Tegretol 150MG BID. Vitamin D deficiency - D3 5000IU daily. Multiple Sclerosis - Dalfampridine 10MG BID, Glatiramer 40MG SC MWF. Anorexia - Marinol 2.5MG BID. Depression - Duloxetine 60MG daily. Skin irritation - Calmoseptine BID buttocks, inner thighs. Nutrition - MVI daily, Vitamin B Complex daily. Tinea Corporis - Nystatin powder BID groin. GERD - Pantoprazole 40MG daily.
--- NOTE | 2018-08-03 20:28 | HP.PCM_ITS ---
Problem List (1) Sepsis Status: Acute (2) Acute respiratory failure Status: Acute (3) Pneumococcal pneumonia Status: Acute (4) Aspiration pneumonia Status: Acute (5) COPD exacerbation Status: Acute (6) Ulcerative colitis Status: Chronic (7) Seizure disorder Status: Chronic (8) Appetite loss Status: Chronic (9) Depression Status: Chronic Qualifiers: (10) Hypertension Status: Chronic Qualifiers: (11) Multiple sclerosis Status: Chronic (12) Dysphagia Status: Chronic Qualifiers: (13) Anemia Status: Chronic (14) BPH (benign prostatic hypertrophy) Status: Chronic (15) Vitamin D deficiency Status: Chronic (16) GERD (gastroesophageal reflux disease) Status: Chronic Qualifiers: (17) Gout Status: Chronic Qualifiers: History of Present Illness Date of Admission: 08/03/18 Chief Complaint: Here for rehabilitation, strengthening, prior to discharge home with spouse. The patient is a 73 year old Male with below past medical history presented to [facility] Emergency Department 07/29/2018 with shortness of breath, fatigue. 07/29/2018 CT brain chronic involutional changes. Weak x few days, confusion, damian color, low pulsox. Fever 100.8. BiPAP started. EKG showed sinus tachycardia heart rate 112. WBC 17.4, BUN 21, INR 1.1, Tegretol 8.4. UA okay, Troponin negative, Lactic Acid okay. Chest X-ray showed severe COPD, pulmonary hypertension, Bibasilar infiltrates. Blood cultures sent. Rocephin, Zithromax IV given. 07/29/2018 Admit to Hospital. Rocephin, Zithromax for bilateral pneumonia. Bronchodilators, Solu-Medrol IV, Incentive Spirometry, VEST therapy for COPD. PT/OT for debility for Multiple Sclerosis. 07/30/2018 MBS recommended regular diet soft textures, nectar thick liquids. 07/30/2018 MRSA screen positive, Vancomycin added. IV Zosyn, Vancomycin for bilateral pneumonia. Code Status [id number]-A. IV Zosyn changed to IV Ceftriaxone. IV Ceftriaxone changed to Augmentin. C. Albicans in sputum thought to be contaminant, no antifungal therapy necessary. Sputum culture grew Strep Pneumoniae. Prednisone taper for COPD exacerbation. 08/03/2018 Admit to TCU with debility, here for rehabilitation, strengthening, prior to discharge home with spouse. Past Medical History Past Medical History (Chronic Problems): Chronic Problems (Last Updated 07/31/18 @ 12:05 by Benitez Kaur MD) Ulcerative colitis (Chronic) Seizure disorder (Chronic) Appetite loss (Chronic) Depression (Chronic) Physical debility (Chronic) Hypertension (Chronic) COPD (chronic obstructive pulmonary disease) (Chronic) Multiple sclerosis (Chronic) Dysphagia (Chronic) Anemia (Chronic) BPH (benign prostatic hypertrophy) (Chronic) Vitamin D deficiency (Chronic) GERD (gastroesophageal reflux disease) (Chronic) Ulcerative esophagitis (Chronic) Gout (Chronic) Medical History: Medical History (Last Updated 07/31/18 @ 12:05 by Benitez Kaur MD) Depression (Chronic) F32.9 Physical debility (Chronic) R53.81 Hypertension (Chronic) I10 COPD (chronic obstructive pulmonary disease) (Chronic) J44.9 Multiple sclerosis (Chronic) G35 Dysphagia (Chronic) R13.10 Anemia (Chronic) D64.9 BPH (benign prostatic hypertrophy) (Chronic) N40.0 Vitamin D deficiency (Chronic) E55.9 GERD (gastroesophageal reflux disease) (Chronic) K21.9 Ulcerative esophagitis (Chronic) K22.10 Gout (Chronic) M10.9 Normal colonoscopy Open wound of buttock, complicated S31.809A Allergies hydrochlorothiazide Allergy (Verified 07/29/18 20:57) Unknown Home Medications: Ambulatory Orders Medication Instructions Recorded Cholecalciferol (VIT D3) [Vitamin 5,000 unit PO DAILY 02/20/14 D3] Glatiramer Acetate [Copaxone] 40 mg SQ MOWEFR 04/19/16 coenzyme Q 10 10 mg capsule 100 mg PO ONCE 02/19/17 lansoprazole 30 mg capsule,delayed 30 mg PO DAILY 02/19/17 release ipratropium-albuterol 0.5 mg-3 3 ml INHALATION TID #180 ml 03/24/17 mg(2.5 mg base)/3 mL nebulization soln budesonide 0.5 mg/2 mL suspension 0.5 mg INHALATION QDAY #60 ml 03/25/17 for nebulization Albuterol Sulfate [Proventil Hfa] 1.25 gm IH Q4H PRN 03/25/18 Amlodipine [Norvasc] 5 mg PO DAILY 03/25/18 Duloxetine Hcl [Cymbalta] 60 mg PO DAILY 03/25/18 Losartan Potassium [Cozaar] 100 mg PO DAILY 03/25/18 Vitamin B Comp W-C [Allbee W/C 1 cap PO DAILY 03/25/18 Caplet, Thera B Comp/C] Dalfampridine [Ampyra] 10 mg PO BID@0900,2100 03/29/18 Carbamazepine [Tegretol] 150 mg PO BIDCM 07/29/18 Dronabinol [Marinol] 2.5 mg PO BID 07/29/18 Multivitamin [Once Daily] 1 each PO DAILY 07/29/18 Acetylcysteine 3 ml INHALATION BID 07/30/18 Calcium Citrate/Vitamin D3 1 each PO BID 07/30/18 [Calcium Citrate with D Tablet] Docusate Sodium [Colace] 250 mg PO BID 07/30/18 Polyethylene Glycol 3350 [Miralax] 17 gm PO DAILY 07/30/18 Theophylline Anhydrous [Torsten-24] 100 mg PO DAILY 07/30/18 Amoxicillin/Potassium Clav 2 each PO Q12H 08/03/18 [Augmentin Xr 1,000-62.5 Tab] Azithromycin 500 mg PO DAILY 08/03/18 Prednisone 10 mg PO DAILY 08/03/18 Surgical History: Surgical History (Last Reviewed 04/27/18 @ 14:37 by Seema Posadas) History of esophagogastroduodenoscopy (EGD) Z98.890 S/P percutaneous endoscopic gastrostomy (PEG) tube placement Z93.1 Surgical History: - - Back surgery x2 (thoracic and cervical), PEG tube. Psychiatric History: Depression Lives: Spouse/ Significant Other Smoking Status: Former smoker Tobacco Use: Non-smoker Alcohol: None Drugs: None - *Family History Maternal Family History: Family History (Last Reviewed 04/27/18 @ 14:37 by Seema Posadas) Mother Colon cancer Breast cancer Lung cancer Father CAD (coronary artery disease) Heart disease History Items: Cancer - 70's Paternal Family History: Family History (Last Reviewed 04/27/18 @ 14:37 by Seema Posadas) Mother Colon cancer Breast cancer Lung cancer Father CAD (coronary artery disease) Heart disease History Items: Heart Disease - age 70's Review of Systems Constitutional: Reports: Weakness. Denies: Chills, Fever, Weight Change HEENT: Denies: Head Aches, Sinus Congestion, Sinus Drainage Cardiovascular: Denies: Chest Pain, Palpitations Respiratory: Denies: Cough, Shortness of breath at rest, Sputum production Gastrointestinal: Denies: Abdominal Pain, Nausea, Vomiting Genitourinary: Denies: Dysuria Musculoskeletal: Denies: Joint Pain, Joint Tenderness Skin: Denies: Rash, Wounds Neurological: Denies: Numbness, Tingling, Focal weakness Psychiatric: Denies: Anxiety, Depression, Homicidal Ideations, Suicidal Ideations Hematologic/ Lymphatic: Denies: Easy Bruising, Easy Bleeding VTE Information - Inpt Only VTE Present on Admission: No VTE Mechan Device Prophylaxis: Knee High JOSE CRUZ Hose VTE Pharm Prophylaxis ordered?: Yes Patient Problems: Active and Suspected Problems (Last Updated 07/31/18 @ 12:05 by Benitez Kaur MD) Sepsis (Acute) Acute respiratory failure (Acute) Pneumococcal pneumonia (Acute) Aspiration pneumonia (Acute) COPD exacerbation (Acute) - Physical Exam General: Alert, Oriented x3, Cooperative HEENT: Atraumatic, PERRLA, EOMI, Normocephalic Neck: Supple, No JVD, Negative Carotid Bruits Lungs: Normal air movement, Wheezes - Diffusely. Cardiovascular: Regular rate, No murmurs Abdomen: Bowel Sounds Present, Soft, Non Tender, - - PEG tube. Extremities: No edema, Capillary Refill Less than 3 Seconds Skin: No rashes, No breakdown Musculoskeletal: No Tenderness to Palpation of Joints or Extremities Neurological: Cranial nerves II-XII grossly intact Psych/Mental Status: Normal Affect, Appropriate Vital Signs Temp Pulse Resp BP Pulse Ox 98.2 F 98 18 131/81 H 2 08/03/18 15:18 08/03/18 15:18 08/03/18 15:18 08/03/18 15:18 08/03/18 15:18 Oxygen Delivery Method Nasal Cannula Weight: 61.054 kg Body Mass Index (BMI) 19.8 Assessment/Plan All Active Problems (Last Updated 07/31/18 @ 12:05 by Benitez Kaur MD) Sepsis (Acute) Acute respiratory failure (Acute) Pneumococcal pneumonia (Acute) Aspiration pneumonia (Acute) COPD exacerbation (Acute) Bilateral pneumonia (Acute) Acute respiratory failure with hypoxia (Acute) COPD exacerbation (Acute) 73 year old male with below past medical history hospitalized for sepsis second niki to S. Pneumo pneumonia, complicated by acute respiratory failure, COPD exacerbation, admitted to TCU with debility, here for rehabilitation, strengthening, prior to discharge home with spouse. * Debility - PT/OT. * Dysphagia - ST. * Pain - Tylenol 1000MG Q6H PRN mild pain. * Bowel - Miralax 17GM daily, Colace 240MG BID. * Pneumonia vaccination - Administer Prevnar 13 and/or Pneumovax 23 as cale smith. * DVT Prophylaxis - Lovenox 40MG SC daily. * COPD - Duoneb 3ML TID, Ventolin 1 puff Q4H PRN, Pulmicort 0.5MG BID, Theophylline 100MG daily, Prednisone taper. * Congestion - Mucomyst 600MG BID. * Hypertension - Losartan 100MG daily, Amlodipine 5MG daily. * S. Pneumo pneumonia - Augmentin 875MG BID thru 08/06/2018, Zithromax 500MG daily thru 08/06/2018. * Seizure Disorder - Tegretol 150MG BID. * Vitamin D deficiency - D3 5000IU daily. * Multiple Sclerosis - Dalfampridine 10MG BID, Glatiramer 40MG SC MWF. * Anorexia - Marinol 2.5MG BID. * Depression - Duloxetine 60MG daily. * Skin irritation - Calmoseptine BID buttocks, inner thighs. * Nutrition - MVI daily, Vitamin B Complex daily. * Tinea Corporis - Nystatin powder BID groin. * GERD - Pantoprazole 40MG daily.
[2018-08-04 06:00] LABS: Absolute Neutrophil Count 5.6 X10^3/uL (2.0-7.7); Basophil# 0.01 X10^3/uL; Basophil% 0.1 % (0-1); Eosinophil# 0.37 X10^3/uL; Eosinophils% 4.6 % (0-5); Hematocrit 39.2 % (40-54); Hemoglobin 12.9 g/dl (13.0-16.5); Lymphocyte % 13.6 % (19-41); Mean Corp Hgb Conc 32.9 g/gl (32-36); Mean Corpuscular Hgb 28.2 pg (27.0-32.0); Mean Corpuscular Volume 85.6 fL (80-94); Mean Platelet Vol. 10.1 fl (6.2-12.0); Monocyte# 1.01 X10^3/uL; Monocyte% 12.5 % (0-10); Neutrophil # 5.57 X10^3/uL (2.7-7.7); Neutrophil % 68.6 % (47-70); Platelet Count 382 K/mm3 (150-450); RBC Distribution Width CV 15.7 % (11.6-14.6); RBC Distribution Width SD 48.4 fl (35.1-43.9); Red Blood Count 4.58 M/mm3 (4.6-6.2); White Blood Count 8.1 K/mm3 (4.4-11.0)
[2018-08-04 06:01] LABS: POSITIVE COUNT NO; POSITIVE DIFFERENTIAL NO; POSITIVE MORPHOLOGY NO
[2018-08-04 06:07] LABS: Anion Gap 7 (5-15); BUN 18 mg/dL (7-18); BUN/Creat Ratio 21.5 RATIO (10-20); Calcium,Total 9.1 mg/dL (8.5-10.1); Chloride 100 mmol/L (98-107); Creatinine, Serum 0.84 mg/dL (0.70-1.30); EST Glomerular Filtration Rate 96 mL/min (>60); Est Glom Filt Rate - Afr Amer 116 mL/min (>60); Estimated Creatinine Clearance 68.65 ml/min; Glucose 79 mg/dL (74-106); Potassium 3.6 mmol/L (3.5-5.1); Sodium Level 140 mmol/L (136-145)
[2018-08-04] MEDS: Dronabinol 2.5 MG Capsule PO ×2 (07:00→17:33)
[2018-08-04] MEDS: Azithromycin 250 MG Tablet 500 MG PO (07:07)
[2018-08-04] MEDS: Losartan Potassium 100 MG Tablet PO (07:08)
[2018-08-04] MEDS: Pantoprazole Sodium 40 MG Tablet PO (07:08)
[2018-08-04] MEDS: DULoxetine Hcl 60 MG Capsule PO (07:08)
[2018-08-04] MEDS: Amox/Clavulanate 875 MG Tablet PO ×2 (07:08→17:33)
[2018-08-04] MEDS: amLODIPine 5 MG Tablet PO (07:09)
[2018-08-04] MEDS: Enoxaparin 40 MG/0.4 ML Syringe SC (07:10)
[2018-08-04] MEDS: Budesonide Respules 0.5 MG/2 ML AMPUL.NEB. INHALATION (07:45)
[2018-08-04] MEDS: Acetylcysteine 800 MG/4 ML VIAL.NEB. 600 MG INHALATION (07:45)
[2018-08-04] MEDS: Ipratropium/Albuterol Sulfate 3 ML AMPUL.NEB INHALATION ×3 (07:45→20:00)
[2018-08-04 07:49] VITALS: PULSE 87; RESP 18; O2SAT 90
--- NOTE | 2018-08-04 07:51 | CPS ---
Patient refused VEST at this time.
[2018-08-04] MEDS: predniSONE 10 MG Tablet 30 MG PO (08:57)
[2018-08-04] MEDS: Multivitamins,Therapeutic Tablet 1 TABLET PO (08:57)
[2018-08-04] MEDS: Vitamin B Comp W-C Capsule 1 CAP PO (08:57)
[2018-08-04] MEDS: DALFAMPRIDINE 10 MG TAB.ER.12H PO ×2 (08:58→19:49)
[2018-08-04] MEDS: carBAMazepine 200 MG/10 ML UDC 150 MG PO ×2 (09:01→16:17)
[2018-08-04] MEDS: Menthol/Lanolin/Calamine/Znox 113 GM Tube 1 APPLIC TOPICAL ×2 (09:09→19:18)
[2018-08-04] MEDS: Nystatin Powder 15gm Bottle 1 APPLIC TOPICAL ×2 (09:10→19:19)
[2018-08-04] MEDS: Tuberculin,Purif.prot.deriv. 50 TU/ML Vial 5 ML ID (11:07)
[2018-08-04 13:18] VITALS: PULSE 92; RESP 16
--- NOTE | 2018-08-04 15:36 | CHAPLAIN ---
Type of Pastoral Visit _x__ Initial Visit ___ Follow-up Visit ___ On-call Visit ___ General Patient Visit ___ Spiritual Assessment ___ Family Conference ___ Bereavement ___ Rapid Response ___ Code Blue ___ Other (describe below) Pastoral Care Referral From _x__ Patient ___ Family ___ Nurse ___ Physician ___ Upper Extremity Surgeon ___ Tube Coremaker ___ Other (describe below) Sacrament/Intervention _x__ Active listening ___ Anointing ___ Samaritan ___ Bereavement ___ Communion ___ Cecelia exploration ___ _x__ Life review ___ Prayer ___ Reconciliation ___ Sacrament of Sick _x__ Supportive presence ___ Wedding ___ Other (describe below) Pastoral Comments
[2018-08-04 15:56] VITALS: BP 129/82; PULSE 90; RESP 18; TEMP 36.9; O2SAT 91
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
--- NOTE | 2018-08-04 18:43 | NURSING ---
THIS NURSE WENT INTO PT ROOM TO CHANGE PEG DRESSING AND FLUSH PEG. PT STATED THAT I LOOKED AT THE DRESSING AND IT DOES NOT NEED TO BE CHANGED AND LOOKS FINE. ALSO STATED THAT SHE DID NOT WANT THIS NURSE TO FLUSH PEG AT THIS TIME AND THAT SHE WANTED IT DONE BETWEEN 8:30 AND 9:30AM ONLY ON DAY SHIT AND FLUSH ONLY 720CC BECAUSE THE PT GETS TO FULL AND WONT EAT. STATED I ONLY FLUSH IT FOR HYDRATION. ALSO STATED THAT SHE WANTED VEST THERAPY DONE AT 11AM AND AFTER PT [1400]. REPORTED TO ERIN SWENSON
[2018-08-04 20:00] VITALS: PULSE 86; PULSE 88; RESP 16; O2SAT 90; O2SAT 92
--- NOTE | 2018-08-04 20:48 | CPS ---
mucomyst not on unit unable to give med
[2018-08-05 06:33] VITALS: PULSE 85; RESP 20
[2018-08-05] MEDS: Ipratropium/Albuterol Sulfate 3 ML AMPUL.NEB INHALATION ×3 (06:33→19:55)
[2018-08-05] MEDS: Acetylcysteine 800 MG/4 ML VIAL.NEB. 600 MG INHALATION ×2 (06:33→19:55)
[2018-08-05] MEDS: Budesonide Respules 0.5 MG/2 ML AMPUL.NEB. INHALATION (06:33)
[2018-08-05] MEDS: Azithromycin 250 MG Tablet 500 MG PO (07:06)
[2018-08-05] MEDS: Dronabinol 2.5 MG Capsule PO ×2 (07:06→17:46)
[2018-08-05] MEDS: Enoxaparin 40 MG/0.4 ML Syringe SC (07:06)
[2018-08-05] MEDS: DULoxetine Hcl 60 MG Capsule PO (07:07)
[2018-08-05] MEDS: Menthol/Lanolin/Calamine/Znox 113 GM Tube 1 APPLIC TOPICAL ×2 (07:07→18:41)
[2018-08-05] MEDS: Pantoprazole Sodium 40 MG Tablet PO (07:07)
[2018-08-05] MEDS: Amox/Clavulanate 875 MG Tablet PO ×2 (07:07→17:45)
[2018-08-05] MEDS: amLODIPine 5 MG Tablet PO (07:08)
[2018-08-05] MEDS: Losartan Potassium 100 MG Tablet PO (07:08)
[2018-08-05] MEDS: Nystatin Powder 15gm Bottle 1 APPLIC TOPICAL ×2 (07:09→18:42)
--- NOTE | 2018-08-05 07:22 | NURSING ---
Patient refusing water or juice. Takes meds with full cup of applesauce. Enc to take fluids. States he drinks more during the day. Will cont to monitor.
[2018-08-05] MEDS: predniSONE 10 MG Tablet 30 MG PO (08:46)
[2018-08-05] MEDS: Vitamin B Comp W-C Capsule 1 CAP PO (08:46)
[2018-08-05] MEDS: Multivitamins,Therapeutic Tablet 1 TABLET PO (08:46)
[2018-08-05] MEDS: carBAMazepine 200 MG/10 ML UDC 150 MG PO ×2 (08:47→17:44)
[2018-08-05] MEDS: DALFAMPRIDINE 10 MG TAB.ER.12H PO ×2 (08:49→21:34)
[2018-08-05 10:00] VITALS: PULSE 84; RESP 18; O2SAT 93
[2018-08-05 12:44] VITALS: PULSE 89; RESP 20
--- NOTE | 2018-08-05 12:58 | NURSING ---
prefers patient to have sponge bath only during his stay here. Isabella KHAN updated.
--- NOTE | 2018-08-05 12:59 | NURSING ---
Per , pt is to have 2-3 layers of adaptic to skin tears on BUE to prevent bleeding when taken off. Use 1 layer of small split sponge to PEG tube site and close end with small piece of tape. No tape on skin per . Isabella KHAN made aware.
--- NOTE | 2018-08-05 15:01 | CASEMGMT ---
Social Work Speech Therapist informing SW that pt expressing desire to take pt home over the weekend. ELAINE met with pt who deferred d/c planning to his . Phone call to pt Johanne and Johanne plans to take pt home on Thursday Afternoon. She states a link trainer teacher from the [facility] will be coming to the house to do exercises with pt and no further PT is needed. Pt also has needed DME. LEAINE inquired about O2 and Johanne states pt has never needed home O2. ELAINE spoke with ERIN Anders and informed that pt is to d/c on Sat and that he has not been on O2 before. Martita will attempt to wean O2. Team notified of d/c. Will monitor need for home O2. Plan: Home with on 08/07/18. No follow up therapy. ANSON Mas
[2018-08-05 15:52] VITALS: BP 113/76; PULSE 82; RESP 16; TEMP 36.6; O2SAT 96
--- NOTE | 2018-08-05 16:40 | NURSING ---
Pt to d/c home on 08/07. Pt previously on oxygen continuous @ 2L via [place]. Pt currently on O2 1L via NC, SpO2 95%. Will continue to monitor. Isabella KHAN aware.
[2018-08-05] MEDS: GLATIRAMER ACETATE 40 MG/ML SYRINGE SQ (18:34)
--- NOTE | 2018-08-05 18:58 | NURSING ---
Per , do not give 6am Docusate Calcium in AM on 08/06 and 08/07. Jazmyn KHAN aware.
[2018-08-05 20:00] VITALS: PULSE 92; RESP 18
--- NOTE | 2018-08-05 20:02 | DCINST_ITS ---
- Discharge Diagnoses Current Active Problems: Current Active and Chronic Problems (Last Updated 07/31/18 @ 12:05 by Benitez Kaur MD) Sepsis (Acute) Acute respiratory failure (Acute) Pneumococcal pneumonia (Acute) Aspiration pneumonia (Acute) COPD exacerbation (Acute) Ulcerative colitis (Chronic) Seizure disorder (Chronic) Appetite loss (Chronic) You will use the following diet at home:: No restrictions, Regular Your food should be the consistency of: Regular Your liquids should be the consistency of: Regular/Thin Discharge Activity: Return to Normal Activity, May Shower, Use Walker Weight Bearing Status: Weight bearing as tolerated Call your doctor if you observe: Fever of 101 or Higher, Inability to urinate, Inability to have a bowel movement, Shortness of breath, Chest pain, Uncontrolled pain Allergies/Adverse Reactions: Allergies hydrochlorothiazide Allergy (Verified 07/29/18 20:57) Unknown Medications to take at Discharge Cholecalciferol (VIT D3) [Vitamin D3] 5,000 unit PO DAILY 02/20/14 coenzyme Q 10 10 mg capsule 100 mg PO ONCE 02/19/17 lansoprazole 30 mg capsule,delayed release 30 mg PO DAILY 02/19/17 ipratropium-albuterol 0.5 mg-3 mg(2.5 mg base)/3 mL nebulization soln 3 ml INHALATION TID #180 ml 03/24/17 budesonide 0.5 mg/2 mL suspension for nebulization 0.5 mg INHALATION QDAY #60 ml 03/25/17 Albuterol Sulfate [Proventil Hfa] 1.25 gm IH Q4H PRN 03/25/18 Amlodipine [Norvasc] 5 mg PO DAILY 03/25/18 Duloxetine Hcl [Cymbalta] 60 mg PO DAILY 03/25/18 Losartan Potassium [Cozaar] 100 mg PO DAILY 03/25/18 Vitamin B Comp W-C [Allbee W/C Caplet, Thera B Comp/C] 1 cap PO DAILY 03/25/18 Dalfampridine [Ampyra] 10 mg PO BID@0900,2100 03/29/18 Carbamazepine [Tegretol] 150 mg PO BIDCM 07/29/18 Dronabinol [Marinol] 2.5 mg PO BID 07/29/18 Multivitamin [Once Daily] 1 each PO DAILY 07/29/18 Calcium Citrate/Vitamin D3 [Calcium Citrate with D Tablet] 1 each PO BID 07/30/18 Docusate Sodium [Colace] 250 mg PO BID 07/30/18 Theophylline Anhydrous [Torsten-24] 100 mg PO DAILY 07/30/18 Acetaminophen [Tylenol] 1,000 mg PO Q6H PRN tablet 08/05/18 Acetylcysteine 3 ml INHALATION BID #90 vial 08/05/18 Glatiramer Acetate 40 mg SQ SUTUTH@1000 syringe 08/05/18 Menthol/Lanolin/Calamine/Znox [Calmoseptine Ointment] 1 applic TOPICAL BID tube 08/05/18 Nystatin Powder [Mycostatin Powder] 1 applic TOPICAL BID bottle 08/05/18 The following prescriptions were given: Acetylcysteine 3 ml INHALATION BID #90 vial Primary Care Physician: Mario Giraldo MD [Primary Care Provider] - Please follow up with your Primary Care Physician in: 1 week. Test Results: Test results from this visit will be discussed in further detail at your follow- up appointment, if applicable. Proposed Discharge Date: 08/07/18
--- NOTE | 2018-08-05 20:02 | PCM.DC.SUM ---
Discharge Date and Diagnosis - Problem List Patient Problems: Active and Suspected Problems (Last Updated 07/31/18 @ 12:05 by Benitez Kaur MD) Sepsis (Acute) Acute respiratory failure (Acute) Pneumococcal pneumonia (Acute) Aspiration pneumonia (Acute) COPD exacerbation (Acute) Date of Admission: 08/03/18 Date of Discharge: 08/07/18 - Primary Discharge Diagnosis Active and Suspected Problems (Last Updated 07/31/18 @ 12:05 by Benitez Kaur MD) Sepsis (Acute) Acute respiratory failure (Acute) Pneumococcal pneumonia (Acute) Aspiration pneumonia (Acute) COPD exacerbation (Acute) - Secondary Discharge Diagnosis Chronic Problems (Last Updated 07/31/18 @ 12:05 by Benitez Kuar MD) Ulcerative colitis (Chronic) Seizure disorder (Chronic) Appetite loss (Chronic) Depression (Chronic) Physical debility (Chronic) Hypertension (Chronic) COPD (chronic obstructive pulmonary disease) (Chronic) Multiple sclerosis (Chronic) Dysphagia (Chronic) Anemia (Chronic) BPH (benign prostatic hypertrophy) (Chronic) Vitamin D deficiency (Chronic) GERD (gastroesophageal reflux disease) (Chronic) Ulcerative esophagitis (Chronic) Gout (Chronic) Hospital Course and Treatment Imaging Results: 08/03/18 15:25 Diet: Regular Diet Food consistency:: Soft Liquid Consistency:: [place] Thick Is pt able to select menu?: No Diet Comments: supervision with family or staff, meds in puree Labs (Last 48 Hours) 08/04/18 08/04/18 05:05 05:05 WBC 8.1 RBC 4.58 L Hgb 12.9 L Hct 39.2 L MCV 85.6 MCH 28.2 MCHC 32.9 RDW 15.7 H RDW Differential 48.4 H Plt Count 382 MPV 10.1 Immature Gran % (Auto) 0.600 Neut % (Auto) 68.6 Lymph % (Auto) 13.6 L [place] % (Auto) 12.5 H Eos % (Auto) 4.6 Baso % (Auto) 0.1 Absolute Neuts (auto) 5.6 Absolute Lymphs (auto) 1.10 Total Counted Not Reportable Sodium 140 Potassium 3.6 Chloride 100 Carbon Dioxide 33.0 H Anion Gap 7 BUN 18 Creatinine 0.84 Estim Creat Clear Calc 68.65 Est GFR (MDRD) Af Amer 116 Est GFR (MDRD) Non-Af 96 BUN/Creatinine Ratio 21.5 H Glucose 79 Calcium 9.1 Operations: None Procedures: None Summary of Care Provided: The patient is a 73 year old Male with below past medical history hospitalized for sepsis secondary to S. Pneumo pneumonia, complicated by acute respiratory failure, COPD exacerbation, admitted to TCU with debility, here for rehabilitation, strengthening, prior to discharge home with spouse. Discharge home with . Patient Problems: Active and Suspected Problems (Last Updated 07/31/18 @ 12:05 by Benitez Kaur MD) Sepsis (Acute) Acute respiratory failure (Acute) Pneumococcal pneumonia (Acute) Aspiration pneumonia (Acute) COPD exacerbation (Acute) - Physical Exam Vital Signs Temp Pulse Resp BP Pulse Ox 97.9 F 82 16 113/76 96 08/05/18 15:52 08/05/18 15:52 08/05/18 15:52 08/05/18 15:52 08/05/18 15:52 Oxygen Flow Rate (L/min) 1 Oxygen Delivery Method Nasal Cannula Weight: 60.95 kg Body Mass Index (BMI) 19.8 Intake and Output for Last 24 Hours 08/03/18 08/04/18 08/05/18 23:59 23:59 23:59 Intake Total 1200 / 1200 720 / 720 1205 / 1205 Output Total 400 / 400 525 / 525 375 / 375 Balance 800 / 800 195 / 195 830 / 830 Discharge Diet: - - [place] Thick Liquids. Discharge Activity: Return to Normal Activity, May Shower, Use Walker Weight Bearing Status: Weight bearing as tolerated Call your doctor if you observe: Fever of 101 or Higher, Inability to urinate, Inability to have a bowel movement, Shortness of breath, Chest pain, Uncontrolled pain Home Medications: Medications to take at Discharge Cholecalciferol (VIT D3) [Vitamin D3] 5,000 unit PO DAILY 02/20/14 coenzyme Q 10 10 mg capsule 100 mg PO ONCE 02/19/17 lansoprazole 30 mg capsule,delayed release 30 mg PO DAILY 02/19/17 ipratropium-albuterol 0.5 mg-3 mg(2.5 mg base)/3 mL nebulization soln 3 ml INHALATION TID #180 ml 03/24/17 budesonide 0.5 mg/2 mL suspension for nebulization 0.5 mg INHALATION QDAY #60 ml 03/25/17 Albuterol Sulfate [Proventil Hfa] 1.25 gm IH Q4H PRN 03/25/18 Amlodipine [Norvasc] 5 mg PO DAILY 03/25/18 Duloxetine Hcl [Cymbalta] 60 mg PO DAILY 03/25/18 Losartan Potassium [Cozaar] 100 mg PO DAILY 03/25/18 Vitamin B Comp W-C [Allbee W/C Caplet, Thera B Comp/C] 1 cap PO DAILY 03/25/18 Dalfampridine [Ampyra] 10 mg PO BID@0900,2100 03/29/18 Carbamazepine [Tegretol] 150 mg PO BIDCM 07/29/18 Dronabinol [Marinol] 2.5 mg PO BID 07/29/18 Multivitamin [Once Daily] 1 each PO DAILY 07/29/18 Calcium Citrate/Vitamin D3 [Calcium Citrate with D Tablet] 1 each PO BID 07/30/18 Docusate Sodium [Colace] 250 mg PO BID 07/30/18 Theophylline Anhydrous [Torsten-24] 100 mg PO DAILY 07/30/18 Acetaminophen [Tylenol] 1,000 mg PO Q6H PRN tablet 08/05/18 Acetylcysteine 3 ml INHALATION BID #90 vial 08/05/18 Glatiramer Acetate 40 mg SQ SUTUTH@1000 syringe 08/05/18 Menthol/Lanolin/Calamine/Znox [Calmoseptine Ointment] 1 applic TOPICAL BID tube 08/05/18 Nystatin Powder [Mycostatin Powder] 1 applic TOPICAL BID bottle 08/05/18 Following Prescrptions Were Given to Patient: Acetylcysteine 3 ml INHALATION BID #90 vial Primary Care Physician: Mario Giraldo MD [Primary Care Provider] - Please follow up with your Primary Care Physician in: 1 week. Disposition: Home Minutes spent on discharge:: 30 Patient Condition:: Stable Medical Necessity - Tobacco Use Smoking Status: Former smoker Tobacco Use: Non-smoker Meaningful Use Info Meaningful Use Diagnoses (Choose all that apply): None applicable
[2018-08-06 06:24] VITALS: PULSE 82; RESP 20
[2018-08-06] MEDS: Budesonide Respules 0.5 MG/2 ML AMPUL.NEB. INHALATION (06:24)
[2018-08-06] MEDS: Ipratropium/Albuterol Sulfate 3 ML AMPUL.NEB INHALATION ×3 (06:24→19:50)
[2018-08-06] MEDS: Acetylcysteine 800 MG/4 ML VIAL.NEB. 600 MG INHALATION ×2 (06:24→19:50)
[2018-08-06] MEDS: Vitamin B Comp W-C Capsule 1 CAP PO (08:53)
[2018-08-06] MEDS: Amox/Clavulanate 875 MG Tablet PO (08:54)
[2018-08-06] MEDS: Losartan Potassium 100 MG Tablet PO (08:54)
[2018-08-06] MEDS: Polyethylene Glycol 3350 17 GM PACKET PO (08:55)
[2018-08-06] MEDS: DULoxetine Hcl 60 MG Capsule PO (08:55)
[2018-08-06] MEDS: Dronabinol 2.5 MG Capsule PO ×2 (08:55→18:01)
[2018-08-06] MEDS: Multivitamins,Therapeutic Tablet 1 TABLET PO (08:56)
[2018-08-06] MEDS: Menthol/Lanolin/Calamine/Znox 113 GM Tube 1 APPLIC TOPICAL ×2 (08:56→19:01)
[2018-08-06] MEDS: amLODIPine 5 MG Tablet PO (08:57)
[2018-08-06] MEDS: Nystatin Powder 15gm Bottle 1 APPLIC TOPICAL ×2 (08:57→19:00)
[2018-08-06] MEDS: predniSONE 10 MG Tablet 30 MG PO (08:57)
[2018-08-06] MEDS: Pantoprazole Sodium 40 MG Tablet PO (08:58)
[2018-08-06] MEDS: carBAMazepine 200 MG/10 ML UDC 150 MG PO ×2 (08:59→17:59)
[2018-08-06] MEDS: DALFAMPRIDINE 10 MG TAB.ER.12H PO ×2 (09:01→21:48)
[2018-08-06] MEDS: Azithromycin 250 MG Tablet 500 MG PO (09:01)
[2018-08-06] MEDS: Enoxaparin 40 MG/0.4 ML Syringe SC (09:22)
--- NOTE | 2018-08-06 12:01 | CASEMGMT ---
BIMS and PHQ9 interviews completed on this date for MDS assessment. ANSON Mas
[2018-08-06 13:00] VITALS: PULSE 88; RESP 20
[2018-08-06 16:00] VITALS: BP 123/76; PULSE 94; RESP 18; TEMP 37; O2SAT 90
--- NOTE | 2018-08-06 18:08 | NURSING ---
Pt took his own medication bottle of Dalfampridine home that was locked up in medication box in room. Dressings to BUE and peg site all changed per this evening. stated that she wanted them left alone and not to change them prior to discharge home tomorrow. Dorothy KHAN made aware.
--- NOTE | 2018-08-06 19:17 | NURSING ---
Pt fluctuating between 88-91% on RA. put back on O2 @ 1L via prior ro her leaving for the night at 7:00pm. stated he should probably wear it at night incase SPO2 drops during the night. Dorothy KHAN aware.
[2018-08-06 20:00] VITALS: PULSE 84; RESP 20
[2018-08-06 21:50] VITALS: PULSE 82; RESP 18; O2SAT 95
[2018-08-07 07:30] VITALS: PULSE 85; RESP 18; O2SAT 94
[2018-08-07] MEDS: Acetylcysteine 800 MG/4 ML VIAL.NEB. 600 MG INHALATION (07:46)
[2018-08-07] MEDS: Ipratropium/Albuterol Sulfate 3 ML AMPUL.NEB INHALATION (07:47)
[2018-08-07] MEDS: Budesonide Respules 0.5 MG/2 ML AMPUL.NEB. INHALATION (07:48)
[2018-08-07] MEDS: Nystatin Powder 15gm Bottle 1 APPLIC TOPICAL (08:45)
[2018-08-07] MEDS: Menthol/Lanolin/Calamine/Znox 113 GM Tube 1 APPLIC TOPICAL (08:45)
[2018-08-07] MEDS: DULoxetine Hcl 60 MG Capsule PO (08:51)
[2018-08-07] MEDS: Pantoprazole Sodium 40 MG Tablet PO (08:51)
[2018-08-07] MEDS: Vitamin B Comp W-C Capsule 1 CAP PO (08:51)
[2018-08-07] MEDS: Multivitamins,Therapeutic Tablet 1 TABLET PO (08:51)
[2018-08-07] MEDS: DALFAMPRIDINE 10 MG TAB.ER.12H PO (08:51)
[2018-08-07] MEDS: carBAMazepine 200 MG/10 ML UDC 150 MG PO (08:51)
[2018-08-07] MEDS: Enoxaparin 40 MG/0.4 ML Syringe SC (08:52)
[2018-08-07] MEDS: Dronabinol 2.5 MG Capsule PO (08:57)
[2018-08-07] MEDS: amLODIPine 5 MG Tablet PO (08:59)
[2018-08-07] MEDS: Losartan Potassium 100 MG Tablet PO (08:59)
[2018-08-07 09:07] VITALS: BP 130/79; PULSE 73
[2018-08-07] MEDS: predniSONE 10 MG Tablet 30 MG PO (09:08)
--- NOTE | 2018-08-07 09:31 | NURSING ---
THIS NURSE IN PT ROOM AND CAME IN. PT ASKED IF PT ATE BREAKFAST,THIS NURSE STATED NO,PT REFUSED. ASKED PT WHY HE WAS BEING AN ASS THIS MORNING REFUSING TO EAT AND DRINK. STATED I WILL JUST GO AND GET HIM SOMETHING FROM [employer]. PT ASKED IF PT HAVE BEEN WASHED UP,THIS NURSE STATED SHE WOULD CHECK WITH THE AIDS. PT STATED WELL SEND SOMEONE BACK NOW IF NOT. PT WAS BEING RUDE AND MEAN TO THIS NURSE AND AIDS. REPORTED TO ERIN RHODES
[2018-08-07 11:00] VITALS: PULSE 87; RESP 18; O2SAT 91
--- NOTE | 2018-08-07 11:04 | NURSING ---
ASSESSMENT DONE ON PT BY THIS NURSE. PT DID NOT WANT THIS NURSE TO CHANGE PT DRESSINGS. PT SAID SHE WOULD DO THEM. REPORTED TO ERIN RHODES
--- NOTE | 2018-08-07 11:41 | CPS ---
PATIENT REFUSED CHEST VEST AT TIME OF VISIT.
--- NOTE | 2018-08-07 11:49 | NURSING ---
PT REFUSED TO GET OUT OF BED AND REFUSED HIS VEST THERAPY. REPORTED TO ERIN RHODES
--- NOTE | 2018-08-07 13:00 | NURSING ---
checked pt oxygen level on room air was 85%. applied 1l of o2, oxygen now 91%. reported to mina toribio
--- NOTE | 2018-08-07 13:11 | PCA ---
Patient refused to get into the recliner chair for lunch
--- NOTE | 2018-08-07 13:45 | CPS ---
Patient refused breathing treatment at this time. Patient stated he is going home today and did not want any more breathing treatment's or vest therapy today.
[2018-08-07 15:51] VITALS: BP 125/79; PULSE 86; RESP 18; TEMP 37; O2SAT 90
--- NOTE | 2018-08-07 17:47 | NURSING ---
not receptive to RN's discharge instructions, disruptive, anxious
--- NOTE | 2018-08-13 08:31 | MDS.RN ---
Information for the mds was obtained from review of the clinical record, interview of resident, staff, and direct observation of resident's care.
== END 2018-08-07 16:25 | disposition home or self-care (01) | DRG 947 ==
PROVIDERS: Admitting Provider Family Medicine Geriatric Medicine; Family Provider Family Medicine; PCP Family Medicine; Referring Provider Family Medicine Geriatric Medicine; Visit Provider Family Medicine Geriatric Medicine
DX: R53.81 Other malaise (principal); J13 Pneumonia due to Streptococcus pneumoniae; J44.0 Chronic obstructive pulmonary disease with (acute) lower respiratory infection; I10 Essential (primary) hypertension; B35.4 Tinea corporis; K21.9 Gastro-esophageal reflux disease without esophagitis; F32.9 Major depressive disorder, single episode, unspecified; G35 Multiple sclerosis; G40.909 Epilepsy, unspecified, not intractable, without status epilepticus; N40.0 Benign prostatic hyperplasia without lower urinary tract symptoms; Z87.891 Personal history of nicotine dependence; E55.9 Vitamin D deficiency, unspecified
CPT/HCPCS: 36415; 80048; 85025; 92526; 92610; 94640; 94668; 97110; 97162; 97166; 97530; 97535

== ENCOUNTER 2018-10-02 15:48 | Inpatient (IN) | payer MEDICARE, OTHER, SELFPAY ==
[2018-10-02] VITALS (11 sets, daily range): BP systolic 124–147; BP diastolic 77–89; PULSE 94–102; RESP 12–26; TEMP 36.6–37.5; O2SAT 90–99; BMI 20.5
--- NOTE | 2018-10-02 16:03 | RAD_ITS ---
STUDY: X-RAY CHEST REASON FOR EXAM: Male, 73 years old. Worsening dyspnea TECHNIQUE: AP COMPARISON: 07/29/2018 FINDINGS: EKG leads project over the chest. Lungs are hyperinflated with chronic fibrotic densities in both lung bases. No dense airspace consolidation is seen. Infiltrates in the lung bases on the prior study has significantly decreased. There is no demonstrated pleural abnormality. Normal size heart. Normal mediastinum and rodriguez. Normal visualized pulmonary arteries. There is atherosclerotic calcification of the aortic arch with tortuosity. There is demineralization of the osseous structures. Normal visualized ribs, clavicles, and shoulders. There is no demonstrated abnormality of the visualized soft tissue structures of the upper abdomen. RAD/Chest 1 View (Portable) IMPRESSION: 1. No airspace consolidation or pleural effusion. 2. COPD with bibasilar fibrotic changes. Electronically Signed: Rafi Haji MD at 16:55 EDT , Service support ,
--- NOTE | 2018-10-02 16:03 | EKG12_ITS ---
Test Reason : SOB Blood Pressure : / mmHG Vent. Rate : 103 BPM Atrial Rate : 103 BPM P-R Int : 156 ms QRS Dur : 086 ms QT Int : 326 ms P-R-T Axes : 085 060 082 degrees QTc Int : 427 ms Sinus tachycardia Otherwise normal ECG Confirmed by PAIGE GONSALEZ, JEREMI ([id number]), editor managing newspaper TATE WALLACE ([id number]) on 10/04/2018 1:55:57 PM Referred By: DASIA/REBECCA/PAUL Confirmed By:AUSTIN GIBSON MD
[2018-10-02 16:14] LABS: Absolute Lymphocyte Count 0.89 X10^3/uL (0.83-4.51); Absolute Neutrophil Count 16.8 X10^3/uL (2.0-7.7); Basophil# 0.05 X10^3/uL; Basophil% 0.3 % (0-1); Eosinophil# 0.12 X10^3/uL; Eosinophils% 0.6 % (0-5); Hematocrit 41.5 % (40-54); Hemoglobin 13.3 g/dL (13.0-16.5); Lymphocyte # 0.89 X10^3/ul (4.0); Lymphocyte % 4.7 % (19-41); Mean Corpuscular Hgb 27.5 pg (27.0-32.0); Mean Corpuscular Volume 85.7 fL (80-94); Mean Platelet Vol. 10.4 fl (6.2-12.0); Monocyte# 1.11 X10^3/uL; Monocyte% 5.8 % (0-10); NRBC Flagged by Analyzer 0 % (0-5); Neutrophil # 16.75 X10^3/uL (2.7-7.7); Neutrophil % 88.1 % (47-70); Platelet Count 398 K/mm3 (150-450); RBC Distribution Width CV 16.7 % (11.6-14.6); RBC Distribution Width SD 51.3 fl (35.1-43.9); Red Blood Count 4.84 M/mm3 (4.6-6.2)
[2018-10-02] MEDS: Ipratropium/Albuterol Sulfate 3 ML AMPUL.NEB INHALATION ×2 (16:20→22:16)
[2018-10-02 16:25] LABS: Anion Gap 6 (5-15); BUN 19 mg/dL (7-18); BUN/Creat Ratio 21.6 RATIO (10-20); Calcium,Total 9.3 mg/dL (8.5-10.1); Chloride 98 mmol/L (98-107); Creatinine, Serum 0.88 mg/dL (0.70-1.30); EST Glomerular Filtration Rate 90 mL/min (>60); Est Glom Filt Rate - Afr Amer 109 mL/min (>60); Estimated Creatinine Clearance 67.72 ml/min; Glucose 107 mg/dL (74-106); Potassium 4.1 mmol/L (3.5-5.1); Sodium Level 135 mmol/L (136-145)
[2018-10-02] MEDS: Albuterol 2.5 MG/3 ML VIAL.NEB. INHALATION ×3 (16:25)
[2018-10-02 16:29] LABS: Lactic Acid 1.1 mmol/L (0.4-2.0)
[2018-10-02] MEDS: MethylPREDNISolone 125 MG/2 ML Vial IV (16:31)
[2018-10-02] MEDS: 0.9% Normal Saline 1,000 ML 999 ML IV (16:31)
--- NOTE | 2018-10-02 17:17 | HP.PCM_ITS ---
Problem List (1) COPD exacerbation Status: Acute History of Present Illness Date of Admission: 10/02/18 Chief Complaint: shortness of breath The patient is a 73 year old M presents with a four-day history of increasing shortness of breath. Got the point where he became very short of breath and presented to the emergency room. In the emergency room, patient was tachypneic with labored breathing and retracting. Patient was placed on BiPAP and did wel l. Patient did request going off the BiPAP and was taken off the BiPAP and did well. Patient did receive aerosols as well as methylprednisolone. This is similar to prior exacerbations of COPD. [] Past Medical History Past Medical History (Chronic Problems): Chronic Problems (Last Updated 07/31/18 @ 12:05 by Benitez Kaur MD) Ulcerative colitis (Chronic) Seizure disorder (Chronic) Appetite loss (Chronic) Depression (Chronic) Physical debility (Chronic) Hypertension (Chronic) COPD (chronic obstructive pulmonary disease) (Chronic) Multiple sclerosis (Chronic) Dysphagia (Chronic) Anemia (Chronic) BPH (benign prostatic hypertrophy) (Chronic) Vitamin D deficiency (Chronic) GERD (gastroesophageal reflux disease) (Chronic) Ulcerative esophagitis (Chronic) Gout (Chronic) Medical History: Medical History (Last Reviewed 10/02/18 @ 17:19 by Mario Bedoya DO) Depression (Chronic) F32.9 Physical debility (Chronic) R53.81 Hypertension (Chronic) I10 COPD (chronic obstructive pulmonary disease) (Chronic) J44.9 Multiple sclerosis (Chronic) G35 Dysphagia (Chronic) R13.10 Anemia (Chronic) D64.9 BPH (benign prostatic hypertrophy) (Chronic) N40.0 Vitamin D deficiency (Chronic) E55.9 GERD (gastroesophageal reflux disease) (Chronic) K21.9 Ulcerative esophagitis (Chronic) K22.10 Gout (Chronic) M10.9 Normal colonoscopy Open wound of buttock, complicated S31.809A Allergies hydrochlorothiazide Allergy (Verified 10/02/18 15:55) Unknown Home Medications: Ambulatory Orders Medication Instructions Recorded Cholecalciferol (VIT D3) [Vitamin 5,000 unit PO DAILY 02/20/14 D3] coenzyme Q10 10 mg capsule 100 mg PO ONCE 02/19/17 lansoprazole 30 mg capsule,delayed 30 mg PO DAILY 02/19/17 release ipratropium-albuterol 0.5 mg-3 3 ml INHALATION TID #180 ml 03/24/17 mg(2.5 mg base)/3 mL nebulization soln budesonide 0.5 mg/2 mL suspension 0.5 mg INHALATION QDAY #60 ml 03/25/17 for nebulization Albuterol Sulfate [Proventil Hfa] 1.25 gm IH Q4H PRN 03/25/18 Amlodipine [Norvasc] 5 mg PO DAILY 03/25/18 Duloxetine Hcl [Cymbalta] 60 mg PO DAILY 03/25/18 Losartan Potassium [Cozaar] 100 mg PO DAILY 03/25/18 Vitamin B Comp W-C [Allbee W/C 1 cap PO DAILY 03/25/18 Caplet, Thera B Comp/C] Dalfampridine [Ampyra] 10 mg PO BID@0900,2100 03/29/18 Carbamazepine [Tegretol] 150 mg PO BIDCM 07/29/18 Dronabinol [Marinol] 2.5 mg PO BID 07/29/18 Multivitamin [Once Daily] 1 each PO DAILY 07/29/18 Calcium Citrate/Vitamin D3 1 each PO BID 07/30/18 [Calcium Citrate with D Tablet] Docusate Sodium [Colace] 250 mg PO BID 07/30/18 Theophylline Anhydrous [Torsten-24] 100 mg PO DAILY 07/30/18 Acetaminophen [Tylenol] 1,000 mg PO Q6H PRN tablet 08/05/18 Acetylcysteine 3 ml INHALATION BID #90 vial 08/05/18 Glatiramer Acetate 40 mg SQ SUTUTH@1000 syringe 08/05/18 Menthol/Lanolin/Calamine/Znox 1 applic TOPICAL BID tube 08/05/18 [Calmoseptine Ointment] Nystatin Powder [Mycostatin Powder] 1 applic TOPICAL BID bottle 08/05/18 Surgical History: Surgical History (Last Reviewed 10/02/18 @ 17:19 by Mario Bedoya DO) History of esophagogastroduodenoscopy (EGD) Z98.890 S/P percutaneous endoscopic gastrostomy (PEG) tube placement Z93.1 Surgical History: - - Back surgery x2 (thoracic and cervical), PEG tube. Psychiatric History: Depression Smoking Status: Former smoker - *Family History Maternal Family History: Family History (Last Reviewed 10/02/18 @ 17:19 by Mario Bedoya DO) Mother Colon cancer Breast cancer Lung cancer Father CAD (coronary artery disease) Heart disease History Items: Cancer - 70's Paternal Family History: Family History (Last Reviewed 10/02/18 @ 17:19 by Mario Bedoya DO) Mother Colon cancer Breast cancer Lung cancer Father CAD (coronary artery disease) Heart disease History Items: Heart Disease - age 70's Review of Systems Constitutional: Denies: Anorexia, Chills, Fever, Malaise Eyes: Denies: Blurred vision, Double vision HEENT: Denies: Head Aches, Sinus Congestion, Sinus Drainage Cardiovascular: Denies: Chest Pain, Palpitations Respiratory: Reports: Cough, Shortness of Breath, Sputum production Gastrointestinal: Denies: Abdominal Pain, Nausea, Vomiting Genitourinary: Denies: Dysuria Musculoskeletal: Denies: Joint Pain, Joint Tenderness Skin: Reports: - - Bruises easily. Denies: Rash, Wounds Neurological: Denies: Numbness, Tingling, Focal weakness Psychiatric: Denies: Anxiety, Depression Endocrine: Reports: Change in Body Habitus - Has lost roughly 20 pounds in the past 2 months. This is despite, according to the patient, that he is eating and drinking properly. Hematologic/ Lymphatic: Reports: Easy Bruising. Denies: Easy Bleeding, Hx of blood clot Comment: A 10 point review of systems were negative except as mentioned in the history of present illness and the other review of systems. VTE Information - Inpt Only VTE Present on Admission: No VTE Mechan Device Prophylaxis: None VTE Pharm Prophylaxis ordered?: Yes Patient Problems: Active and Suspected Problems (Last Updated 07/31/18 @ 12:05 by Benitez Kaur MD) COPD exacerbation (Acute) - Physical Exam General: Alert, No apparent distress, - - Gaunt. HEENT: Atraumatic, Normocephalic Oral: Moist Mucosa, No Gingival or Mucosal Lesions/ Ulcerations Neck: No Nodes, Thyroid Normal Size and Texture Lungs: Diminished, Wheezes Cardiovascular: Regular rate, Regular Rhythm, Normal S1, Normal S2, No murmurs Abdomen: Bowel Sounds Present, Soft, Non Tender, Non-Distended, No Hepato- splenomegaly Extremities: No edema, No Calf Tenderness Skin: No rashes, No breakdown Musculoskeletal: No Tenderness to Palpation of Joints or Extremities, No Muscle Wasting Neurological: Motor Exam 5/5 strength throughout, - - No clonus Psych/Mental Status: Normal Affect, Appropriate Vital Signs Temp Pulse Resp BP Pulse Ox 36.9 C 94 22 H 127/85 H 95 10/02/18 16:19 10/02/18 16:52 10/02/18 16:52 10/02/18 16:19 10/02/18 16:19 Oxygen Flow Rate (L/min) 2 Oxygen Delivery Method Bi-pap Weight: 63.1 kg Body Mass Index (BMI) 20.5 Laboratory Tests Past 24 Hrs 10/02/18 10/02/18 10/02/18 15:55 15:55 15:55 WBC 19.0 H RBC 4.84 Hgb 13.3 Hct 41.5 MCV 85.7 MCH 27.5 MCHC 32.0 RDW Std Deviation 51.3 H RDW Coeff of Ivelisse 16.7 H Plt Count 398 MPV 10.4 Immature Gran % (Auto) 0.500 Neut % (Auto) 88.1 H Lymph % (Auto) 4.7 L [place] % (Auto) 5.8 Eos % (Auto) 0.6 Baso % (Auto) 0.3 Absolute Neuts (auto) 16.8 H Absolute Lymphs (auto) 0.89 Absolute Nucleated RBC 0.00 Nucleated RBC % 0 Sodium 135 L Potassium 4.1 Chloride 98 Carbon Dioxide 31.0 Anion Gap 6 BUN 19 H Creatinine 0.88 Estim Creat Clear Calc 67.72 Est GFR (MDRD) Af Amer 109 Est GFR (MDRD) Non-Af 90 BUN/Creatinine Ratio 21.6 H Glucose 107 H Lactic Acid 1.1 Calcium 9.3 EKG personally reviewed and showed sinus tachycardia without any acute changes. Chest x-ray personally reviewed and showed hyperinflated airways but no overt infiltrate nor pulmonary edema. Assessment/Plan All Active Problems (Last Updated 07/31/18 @ 12:05 by Benitez Kaur MD) Sepsis (Acute) Acute respiratory failure (Acute) Pneumococcal pneumonia (Acute) Aspiration pneumonia (Acute) COPD exacerbation (Acute) COPD exacerbation (Acute) Bilateral pneumonia (Acute) Acute respiratory failure with hypoxia (Acute) COPD exacerbation (Acute) 1. Acute COPD exacerbation * Given patient's age plus his exacerbation and sputum production, will add antibiotics with Levaquin * Will continue with bronchodilators and steroids * Wean oxygen as tolerated * If still requiring oxygen when patient is being discharged, consider amatory pulse ox 2. Acute respiratory insufficiency * No documented hypoxia but given his labored breathing patient was temporally put on a BiPAP. Patient was taken off the BiPAP and did well so will be able to hold off on any additional mechanical ventilation at this time. * Wean oxygen as tolerated 3. Multiple sclerosis * Not in exacerbation at this time * Continue with his home medications, which include dalfampridine, glatiramer * Follow-up with MS physician as outpatient * Will have physical and occupational therapy evaluate the patient to see if he needs any additional therapy services upon discharge 4. Moderate cachexia * Patient states that he is lost roughly 20 pounds in the past 2 months which is been unintentional * Check hepatic panel to assess his albumin * Clinically patient is malnourished as he has obvious temporal wasting and strap muscles are very prominent * Ensure clear with meals 5. VTE prophylaxis with enoxaparin 6. advanced care planning: Addressed CPR and intubation with the patient in case in the event of cardiac arrest or respiratory failure. Patient states that he would not want to be intubated nor would he want CPR in event of cardiopulmonary arrest. Therefore, the patient's CODE STATUS at this time is DNR Comfort Care arrest with no intubation. Code Visit Inpatient E&M: 21976 Init Hosp L3
--- NOTE | 2018-10-02 17:18 | ED.DCSUM_ITS ---
- ER Visit Summary Date of Service: 10/02/18 Chief Complaint: Shortness of breath History of Present Illness: The patient is a [address] Mario Giraldo. He has a history of severe COPD. He has shortness of breath began 8 days ago. States that severe when he exerts himself or coughs. Its moderate at rest. Worse he has a chronic cough, but is been productive of yellow sputum for the past 2 weeks. No blood in his sputum. No fever, chills, or chest pain. States that he has had this multiple times in the past with his COPD. Physical Examination: Vitals: 98.2, 124/89, 102, 23, 98% on 2 L nasal cannula. General: Well-nourished and well-developed. Head: Normocephalic atraumatic. Neck: Supple, no lymphadenopathy. No JVD. Nontender. Cardiovascular: Tachycardic regular rhythm. No murmurs. Respiratory: Moderate respiratory distress. He has mild wheezing bilaterally with greatly decreased air movement. Abdominal: Soft, nontender, nondistended, normal bowel sounds. No guarding, rebound, or peritoneal signs. Back: Nontender. Extremities: Nontender, no edema. Skin: Normal color, no rash. Neurologic: Alert and oriented ?3. Cranial nerves II through XII are intact. Normal strength and sensation. Psych: Normal affect. Test Results: EKG sinus tachycardia 103 with no acute changes. CBC shows a white count of 19.0 with segmented neutrophils 88 and lymphocytes of 5. Chem-7 shows a sodium 135, BUN 19, glucose 107. Lactic acid is 1.1. Clinical Impression(s) from Imaging Studies Chest X-Ray 10/02/18 16:03 IMPRESSION: 1. No airspace consolidation or pleural effusion. 2. COPD with bibasilar fibrotic changes. Electronically Signed: Rafi Haji MD at 16:55 EDT , Service support , Emergency Department Course and Treatment: Patient was placed on BiPAP. He was given albuterol Atrovent aerosols. He was given Solu-Medrol IV. He feels improved and is resting more comfortably. He has of the BiPAP be removed. Treatment Plan: Patient was discussed with Dr. Neal. He will be admitted to the hospital for further evaluation and treatment. At this time we will hold off on antibiotics. Disposition: Admitted in improved condition. Impression: 1. COPD exacerbation. This note was generated with [employer] dictation software. It may contain incorrect words, spelling, and punctuation that were not noted in review of the chart prior to signing ED Disposition - Plan for ED Patient: Referrals: Mario Giraldo MD [Primary Care Provider] -
[2018-10-02 17:53] LABS: Mucous, Urine 0 SEEN /hpf (<or=2+); Squamous Epithelial Cells - UA 0 SEEN /hpf (0-5)
[2018-10-02 17:56] LABS: Color, Urine Yellow (Yellow); Glucose, Dipstick Normal (Normal); Ketone-Dipstick 5 mg/dl (Negative); Leukocyte Esterase-Dipstick 25 /ul (Negative); Nitrite-Dipstick Negative (Negative); Occult Blood-Urine 150 /ul (Negative); Protein-Dipstick 15 mg/dl (Negative); Specific Gravity, Urine 1.015 (1.002-1.030); Urine Bilirubin Dipstick Negative (Negative); Urine Clarity Clear (Clear); Urine Urobilinogen Normal (Normal)
[2018-10-02 18:03] LABS: Red Blood Cells-Urine 25-50 SEEN /hpf (0-5); White Blood Cells 0-5 SEEN /hpf (0-5)
[2018-10-02 18:04] LABS: Bacteria RARE /hpf (None Seen)
[2018-10-02] MEDS: levoFLOXacin IV 500 MG/100 ML BAG 100 MG IV (20:57)
[2018-10-02] MEDS: carBAMazepine 200 MG Tablet 150 MG PO (21:14)
[2018-10-02] MEDS: Dronabinol 2.5 MG Capsule PO (21:14)
[2018-10-02] MEDS: Calcium Carb/Vitamin D 1 TABLET Tablet PO (21:14)
[2018-10-02] MEDS: DALFAMPRIDINE 10 MG TAB.ER.12H PO (21:17)
[2018-10-03] VITALS (12 sets, daily range): BP systolic 125–132; BP diastolic 67–84; PULSE 82–93; RESP 18–25; TEMP 36.4–37.1; O2SAT 91–129
[2018-10-03 06:32] LABS: Absolute Lymphocyte Count 1.36 X10^3/uL (0.83-4.51); Absolute Neutrophil Count 8.9 X10^3/uL (2.0-7.7); Basophil# 0.01 X10^3/uL; Basophil% 0.1 % (0-1); Eosinophil# 0.03 X10^3/uL; Eosinophils% 0.3 % (0-5); Hematocrit 35.7 % (40-54); Hemoglobin 11.5 g/dL (13.0-16.5); Lymphocyte # 1.36 X10^3/ul (4.0); Lymphocyte % 12.4 % (19-41); Mean Corp Hgb Conc 32.2 g/dL (32-36); Mean Corpuscular Hgb 27.3 pg (27.0-32.0); Mean Corpuscular Volume 84.6 fL (80-94); Mean Platelet Vol. 10.3 fl (6.2-12.0); Monocyte# 0.64 X10^3/uL; Monocyte% 5.8 % (0-10); NRBC Flagged by Analyzer 0 % (0-5); Neutrophil # 8.87 X10^3/uL (2.7-7.7); Neutrophil % 80.9 % (47-70); Platelet Count 330 K/mm3 (150-450); RBC Distribution Width CV 16.7 % (11.6-14.6); RBC Distribution Width SD 51.5 fl (35.1-43.9); Red Blood Count 4.22 M/mm3 (4.6-6.2)
[2018-10-03 06:58] LABS: AST(SGOT) 17 U/L (15-37); Alanine Aminotransfer ALT/SGPT 23 U/L (16-61); Albumin, Serum 2.8 g/dL (3.2-5.0); Alkaline Phosphatase 96 U/L (45-117); Anion Gap 3 (5-15); BUN 15 mg/dL (7-18); BUN/Creat Ratio 18.9 RATIO (10-20); Bilirubin, Direct 0.11 mg/dL (0.00-0.30); Calcium,Total 9.2 mg/dL (8.5-10.1); Chloride 101 mmol/L (98-107); Creatinine, Serum 0.79 mg/dL (0.70-1.30); EST Glomerular Filtration Rate 102 mL/min (>60); Est Glom Filt Rate - Afr Amer 123 mL/min (>60); Estimated Creatinine Clearance 59.59 ml/min; Glucose 97 mg/dL (74-106); Potassium 4.7 mmol/L (3.5-5.1); Protein, Total 6.8 g/dL (6.4-8.2); Sodium Level 135 mmol/L (136-145)
[2018-10-03] MEDS: Ipratropium/Albuterol Sulfate 3 ML AMPUL.NEB INHALATION ×5 (07:29→22:35)
[2018-10-03] MEDS: DALFAMPRIDINE 10 MG TAB.ER.12H PO ×2 (08:15→21:06)
[2018-10-03] MEDS: Vitamin B Comp W-C Capsule 1 CAP PO (08:16)
[2018-10-03] MEDS: Multivitamins,Therapeutic Tablet 1 TABLET PO (08:16)
--- NOTE | 2018-10-03 10:05 | PN_ITS ---
Subjective: Chief complaint: Follow-up after admission for acute COPD exacerbation with acute hypoxic respiratory failure. Patient seen and examined. No acute events overnight. This morning, he states that his breathing is getting better, still having mild cough, no sputum production. He denies any more wheezing. Oxygenation improved, is down to 2 L. He has been afebrile, blood pressure and heart rate are stable. - Physical Exam General: Alert, Oriented x3, Cooperative, - - Minimally short of breath. HEENT: Atraumatic, PERRLA, EOMI, Normocephalic Oral: Moist Mucosa, No Gingival or Mucosal Lesions/ Ulcerations Neck: Supple, No JVD, Negative Carotid Bruits, Trachea Midline, Thyroid Normal Size and Texture Lungs: No rhonchi, No rales, Diminished, Short of Breath, - - Decreased breath sounds bilateral, occasional wheezes. Cardiovascular: Regular rate, Regular Rhythm, Normal S1, Normal S2, PMI Normal Abdomen: Bowel Sounds Present, Soft, Non Tender, Non-Distended, No Hepato- splenomegaly Extremities: No clubbing, No cyanosis, No edema Skin: No rashes, No breakdown Lymphatic: No Cervical, Supraclavicular, or Inguinal Adenopathy Neurological: Cranial nerves II-XII grossly intact, Neuro grossly intact Psych/Mental Status: Normal Affect, Appropriate, Alert and oriented to time, place, person, mood and affect Vital Signs Temp Pulse Resp BP Pulse Ox 97.6 F L 82 18 129/74 H 96 10/03/18 02:10 10/03/18 07:29 10/03/18 07:29 10/03/18 02:10 10/03/18 07:29 Oxygen Flow Rate (L/min) 2 Oxygen Delivery Method Nasal Cannula Weight: 139 lb 1.787 oz Body Mass Index (BMI) 20.5 Intake and Output for Last 24 Hours 10/01/18 10/02/18 10/03/18 23:59 23:59 23:59 Intake Total 567 / 567 Output Total 500 / 500 Balance / Laboratory Tests Past 24 Hrs 10/02/18 10/02/18 10/02/18 15:55 15:55 15:55 WBC 19.0 H RBC 4.84 Hgb 13.3 Hct 41.5 MCV 85.7 MCH 27.5 MCHC 32.0 RDW Std Deviation 51.3 H RDW Coeff of Ivelisse 16.7 H Plt Count 398 MPV 10.4 Immature Gran % (Auto) 0.500 Neut % (Auto) 88.1 H Lymph % (Auto) 4.7 L [place] % (Auto) 5.8 Eos % (Auto) 0.6 Baso % (Auto) 0.3 Absolute Neuts (auto) 16.8 H Absolute Lymphs (auto) 0.89 Absolute Nucleated RBC 0.00 Nucleated RBC % 0 Sodium 135 L Potassium 4.1 Chloride 98 Carbon Dioxide 31.0 Anion Gap 6 BUN 19 H Creatinine 0.88 Estim Creat Clear Calc 67.72 Est GFR (MDRD) Af Amer 109 Est GFR (MDRD) Non-Af 90 BUN/Creatinine Ratio 21.6 H Glucose 107 H Lactic Acid 1.1 Calcium 9.3 Total Bilirubin Direct Bilirubin AST ALT Alkaline Phosphatase Total Protein Albumin Globulin Urine Color Urine Clarity Urine pH Ur Specific [place] Urine Protein Urine Glucose (UA) Urine Ketones Urine Occult Blood Urine Nitrite Urine Bilirubin Urine Urobilinogen Ur Leukocyte Esterase Urine RBC Urine WBC Ur Squamous Epith Cells Urine Bacteria Urine Mucus 10/02/18 10/03/18 10/03/18 17:45 06:00 06:00 WBC 11.0 RBC 4.22 L Hgb 11.5 L Hct 35.7 L MCV 84.6 MCH 27.3 MCHC 32.2 RDW Std Deviation 51.5 H RDW Coeff of Ivelisse 16.7 H Plt Count 330 MPV 10.3 Immature Gran % (Auto) 0.500 Neut % (Auto) 80.9 H Lymph % (Auto) 12.4 L [place] % (Auto) 5.8 Eos % (Auto) 0.3 Baso % (Auto) 0.1 Absolute Neuts (auto) 8.9 H Absolute Lymphs (auto) 1.36 Absolute Nucleated RBC 0.00 Nucleated RBC % 0 Sodium 135 L Potassium 4.7 Chloride 101 Carbon Dioxide 31.0 Anion Gap 3 L BUN 15 Creatinine 0.79 Estim Creat Clear Calc 59.59 Est GFR (MDRD) Af Amer 123 Est GFR (MDRD) Non-Af 102 BUN/Creatinine Ratio 18.9 Glucose 97 Lactic Acid Calcium 9.2 Total Bilirubin 0.50 Direct Bilirubin 0.11 AST 17 ALT 23 Alkaline Phosphatase 96 Total Protein 6.8 Albumin 2.8 L Globulin 4.0 Urine Color Yellow Urine Clarity Clear Urine pH 7.0 Ur Specific [place] 1.015 Urine Protein 15 H Urine Glucose (UA) Normal Urine Ketones 5 H Urine Occult Blood 150 H Urine Nitrite Negative Urine Bilirubin Negative Urine Urobilinogen Normal Ur Leukocyte Esterase 25 H Urine RBC 25-50 SEEN Urine WBC 0-5 SEEN Ur Squamous Epith Cells 0 SEEN Urine Bacteria RARE Urine Mucus 0 SEEN Clinical Impression(s) from Imaging Studies Chest X-Ray 10/02/18 16:03 IMPRESSION: 1. No airspace consolidation or pleural effusion. 2. COPD with bibasilar fibrotic changes. Electronically Signed: Rafi Haji MD at 16:55 EDT , Service support , Medical Necessity - Tobacco Use Smoking Status: Former smoker Assessment/Plan All Active Problems (Last Reviewed 10/02/18 @ 17:19 by Mario Bedoya DO) Acute respiratory failure (Acute) COPD exacerbation (Acute) This is a 73 years old male patient presented to the emergency room because of shortness of breath with cough and he was found to have acute COPD exacerbation with acute hypoxic respiratory failure. #1 acute COPD exacerbation: Chest x-ray reviewed, no acute infiltrate or consolidation. He is on IV steroids, IV Levaquin and bronchodilators. Patient reports improvement of his symptoms, he is down to 2 L of oxygen. Other vital signs are stable. Afebrile. Leukocytosis resolved. Blood cultures pending. Plan to continue same treatment, wean off oxygen as tolerated, possible DC home tomorrow morning. #2 acute hypoxic respiratory failure: Secondary to above. Patient never been on oxygen at home. Upon arrival to ER, patient was dyspneic, tachypneic and tachycardic, required BiPAP to maintain his pulse ox. Today, he improved dramatically, symptoms improved, he is down to 2 L. He never been on oxygen at home. Plan to continue same treatment, plan as above. #3 multiple sclerosis: Stable, continue Copaxone, PT OT. #4 seizure disorder: Stable, continue to control. #5 depression: Continue Cymbalta. #6 hypertension: Stable, continue Norvasc and losartan. #7 DVT prophylaxis: Subcu Lovenox. This note was generated with [employer] software. It may contain incorrect words, spelling, and punctuation that were not noted in checking the note before signing. Code Visit Inpatient E&M: 34792 Subs Hosp L2
[2018-10-03] MEDS: GLATIRAMER ACETATE 40 MG/ML SYRINGE SQ (10:43)
[2018-10-03] MEDS: Calcium Carb/Vitamin D 1 TABLET Tablet PO ×2 (10:44→21:06)
[2018-10-03] MEDS: THEOPHYLLINE ANHYDROUS 100 MG CAP.ER.24H PO (10:44)
[2018-10-03] MEDS: Enoxaparin 40 MG/0.4 ML Syringe SC (10:45)
[2018-10-03] MEDS: amLODIPine 5 MG Tablet PO (10:45)
[2018-10-03] MEDS: Nystatin Powder 15gm Bottle 1 APPLIC TOPICAL ×2 (10:45→21:06)
[2018-10-03] MEDS: Dronabinol 2.5 MG Capsule PO ×2 (10:47→21:05)
[2018-10-03] MEDS: Pantoprazole Sodium 40 MG Tablet PO (10:47)
[2018-10-03] MEDS: DULoxetine Hcl 60 MG Capsule PO (10:47)
[2018-10-03] MEDS: Losartan Potassium 100 MG Tablet PO (10:49)
--- NOTE | 2018-10-03 11:58 | CPS ---
pt refused vest treatment at this time.
--- NOTE | 2018-10-03 11:58 | CPS ---
pt is refusing vest treatment at this time.
[2018-10-03] MEDS: carBAMazepine 200 MG Tablet 150 MG PO (16:23)
[2018-10-03] MEDS: levoFLOXacin IV 500 MG/100 ML BAG 100 MG IV (21:06)
[2018-10-04] VITALS (11 sets, daily range): BP systolic 135–157; BP diastolic 84–96; PULSE 81–102; RESP 18–24; TEMP 36.4–37.2; O2SAT 90–95
[2018-10-04] MEDS: Ipratropium/Albuterol Sulfate 3 ML AMPUL.NEB INHALATION ×5 (06:53→23:30)
--- NOTE | 2018-10-04 06:58 | CPS ---
Pt declined Vest Therapy this a.m.
[2018-10-04] MEDS: carBAMazepine 200 MG Tablet 150 MG PO ×2 (08:38→17:33)
[2018-10-04] MEDS: Multivitamins,Therapeutic Tablet 1 TABLET PO (08:38)
[2018-10-04] MEDS: Vitamin B Comp W-C Capsule 1 CAP PO (08:38)
--- NOTE | 2018-10-04 08:48 | PN_ITS ---
Subjective: Chief complaint: Follow-up after admission for acute COPD exacerbation with acute hypoxic respiratory failure. Patient seen and examined. No acute events overnight. He reported sternal border symptoms, short of breath, he has no more cough. Oxygen requirement decreasing, he is down to 1 L. This morning, he does have some wheezing. Other vital signs are stable. - Physical Exam General: Alert, Oriented x3, Cooperative, No apparent distress HEENT: Atraumatic, PERRLA, EOMI, Normocephalic Oral: Moist Mucosa, No Gingival or Mucosal Lesions/ Ulcerations Neck: Supple, No JVD, Negative Carotid Bruits, Trachea Midline, Thyroid Normal Size and Texture Lungs: No rhonchi, No rales, Diminished, Wheezes, - - Decreased breath sounds bilateral, bilateral faint expiratory wheezes. Cardiovascular: Regular rate, Regular Rhythm, Normal S1, Normal S2, PMI Normal Abdomen: Bowel Sounds Present, Soft, Non Tender, Non-Distended, No Hepato- splenomegaly Extremities: No clubbing, No cyanosis, No edema Skin: No rashes, No breakdown Lymphatic: No Cervical, Supraclavicular, or Inguinal Adenopathy Neurological: Cranial nerves II-XII grossly intact, Neuro grossly intact Psych/Mental Status: Normal Affect, Appropriate Vital Signs Temp Pulse Resp BP Pulse Ox 98.6 F 90 18 141/96 H 90 10/04/18 08:30 10/04/18 08:30 10/04/18 08:30 10/04/18 08:30 10/04/18 08:30 Oxygen Flow Rate (L/min) 3 Oxygen Delivery Method Nasal Cannula Weight: 139 lb 1.787 oz Body Mass Index (BMI) 20.5 Intake and Output for Last 24 Hours 10/02/18 10/03/18 10/04/18 23:59 23:59 23:59 Intake Total 2102 / 2273 255 / 255 Output Total 1650 / 1850 600 / 600 Balance 452 / 423 -345 / -345 Medical Necessity - Tobacco Use Smoking Status: Former smoker Assessment/Plan All Active Problems (Last Reviewed 10/02/18 @ 17:19 by Mario Bedoya DO) Acute respiratory failure (Acute) COPD exacerbation (Acute) This is a 73 years old male patient presented to the emergency room because of shortness of breath with cough and he was found to have acute COPD exacerbation with acute hypoxic respiratory failure. #1 acute COPD exacerbation: He is on IV steroids, IV Levaquin and bronchodilators. Chest x-ray reviewed, no acute infiltrate or consolidation. Symptoms and has been improving, oxygen requirement is decreasing. Patient remains on 1 L of oxygen. He still having some wheezing. Blood cultures pending. Plan to progress and treatment, no discharge today, probable discharge home tomorrow. #2 acute hypoxic respiratory failure: Secondary to above. Patient never been on oxygen at home. Symptoms are improving, he is down to 1 L. Plan to continue same treatment. #3 multiple sclerosis: Stable, continue Copaxone, PT OT. #4 seizure disorder: Stable, continue to control. #5 depression: Continue Cymbalta. #6 hypertension: Stable, continue Norvasc and losartan. #7 DVT prophylaxis: Subcu Lovenox. This note was generated with [employer] dictation software. It may contain incorrect words, spelling, and punctuation that were not noted in checking the note before signing. Code Visit Inpatient E&M: 34658 Subs Hosp L2
--- NOTE | 2018-10-04 10:15 | CASEMGMT ---
RN ANGELA Face to Face with patient for initial transition planning/care coordination assessment. RN CM introduced self and role at [facility]. Patient lying in bed, alert and oriented, at bedside. Patient willing to participate in assessment and is able to answer all questions appropriately. Care providers, pharmacy, and demographics verified. Patient wishes to discharge home, denies need for home health at this time. Patient states he has no further needs or concerns at this time. CM to follow for discharge planning needs that may arise. PCP: Mario Giraldo Specialists: Arthur neurologist Preferred Pharmacy: [facility] Insurance: [facility] Prescription Benefit: Yes Living Will/HPOA: yes, Johanne Dang LNOK: Living Arrangements: Patient lives with in 2 story home with ramp to enter the home. Patient has stair lift to reach 2nd floor. Patient requires assistance of 1-2 for ADLs Transportation: DME/HHC: Patient states that they have wheelchair, walker, cane, raised toilet, shower chair, lift chair, grab bars, nebulizer at home. Patient has private duty aides 4x/week. voiced no concerns for at home. Disposition Plan: Patient to discharge home with private duty aides, family support, and follow-up plans in place. Cherie RITTER, RN, CM
[2018-10-04] MEDS: DALFAMPRIDINE 10 MG TAB.ER.12H PO ×2 (10:18→22:10)
[2018-10-04] MEDS: Losartan Potassium 100 MG Tablet PO (10:19)
[2018-10-04] MEDS: DULoxetine Hcl 60 MG Capsule PO (10:19)
[2018-10-04] MEDS: Enoxaparin 40 MG/0.4 ML Syringe SC (10:20)
[2018-10-04] MEDS: amLODIPine 5 MG Tablet PO (10:22)
[2018-10-04] MEDS: Calcium Carb/Vitamin D 1 TABLET Tablet PO ×2 (10:22→22:10)
[2018-10-04] MEDS: Pantoprazole Sodium 40 MG Tablet PO (10:22)
[2018-10-04] MEDS: THEOPHYLLINE ANHYDROUS 100 MG CAP.ER.24H PO (10:23)
[2018-10-04] MEDS: Dronabinol 2.5 MG Capsule PO ×2 (10:26→22:10)
--- NOTE | 2018-10-04 10:57 | CPS ---
Pt declined Vest Therapy @this time.
[2018-10-04] MEDS: Polyethylene Glycol 3350 17 GM PACKET GT (12:44)
--- NOTE | 2018-10-04 15:26 | CPS ---
Pt's was upset Vest had not been done today. R.T. explained that he declined both times R.T. asked him if he wanted to do Vest Therapy. insisted that pt can't refuse, R.T. explained that staff is not allowed to make some take therapy that they refused. She now wants to be called if pt refuses Vest, Braxton KHAN aware of this and will pass on the Jin Gallardo, manager order of PSN.
[2018-10-04] MEDS: levoFLOXacin IV 500 MG/100 ML BAG 100 MG IV (22:10)
[2018-10-05 01:40] VITALS: BP 144/88; PULSE 74; RESP 16; TEMP 36.6; O2SAT 100
[2018-10-05 03:50] VITALS: PULSE 92; RESP 20
[2018-10-05] MEDS: Ipratropium/Albuterol Sulfate 3 ML AMPUL.NEB INHALATION ×3 (03:50→10:41)
[2018-10-05 06:36] VITALS: PULSE 100; RESP 20; O2SAT 93
[2018-10-05] MEDS: DALFAMPRIDINE 10 MG TAB.ER.12H PO (07:59)
[2018-10-05] MEDS: amLODIPine 5 MG Tablet PO (08:00)
[2018-10-05] MEDS: Vitamin B Comp W-C Capsule 1 CAP PO (08:00)
[2018-10-05] MEDS: DULoxetine Hcl 60 MG Capsule PO (08:00)
[2018-10-05] MEDS: Losartan Potassium 100 MG Tablet PO (08:00)
[2018-10-05] MEDS: Calcium Carb/Vitamin D 1 TABLET Tablet PO (08:00)
[2018-10-05] MEDS: Enoxaparin 40 MG/0.4 ML Syringe SC (08:01)
[2018-10-05] MEDS: GLATIRAMER ACETATE 40 MG/ML SYRINGE SQ (08:01)
[2018-10-05] MEDS: Multivitamins,Therapeutic Tablet 1 TABLET PO (08:02)
[2018-10-05] MEDS: carBAMazepine 200 MG Tablet 150 MG PO (08:02)
[2018-10-05] MEDS: Pantoprazole Sodium 40 MG Tablet PO (08:03)
[2018-10-05] MEDS: THEOPHYLLINE ANHYDROUS 100 MG CAP.ER.24H PO (08:03)
[2018-10-05] MEDS: Nystatin Powder 15gm Bottle 1 APPLIC TOPICAL (08:04)
[2018-10-05 08:17] VITALS: BP 159/95; PULSE 82; RESP 18; TEMP 36.8; O2SAT 95
[2018-10-05] MEDS: Dronabinol 2.5 MG Capsule PO (09:18)
--- NOTE | 2018-10-05 09:43 | DCINST_ITS ---
You will use the following diet at home:: Regular Your food should be the consistency of: Regular Discharge Activity: Return to Normal Activity Weight Bearing Status: Weight bearing as tolerated Call your doctor if you observe: Fever of 101 or Higher, Shortness of breath, Dizziness, Fainting spells, Chest pain, Increased palpitations (irregular heartbeat), Uncontrolled pain Allergies/Adverse Reactions: Allergies hydrochlorothiazide Allergy (Verified 10/02/18 15:55) Unknown Medications to take at Discharge Cholecalciferol (VIT D3) [Vitamin D3] 5,000 unit PO DAILY 02/20/14 coenzyme Q10 10 mg capsule 100 mg PO DAILY 02/19/17 lansoprazole 30 mg capsule,delayed release 30 mg PO DAILY 02/19/17 ipratropium-albuterol 0.5 mg-3 mg(2.5 mg base)/3 mL nebulization soln 3 ml INHALATION TID #180 ml 03/24/17 budesonide 0.5 mg/2 mL suspension for nebulization 0.5 mg INHALATION QDAY #60 ml 03/25/17 Albuterol Sulfate [Proventil Hfa] 1.25 gm IH Q4H PRN 03/25/18 Amlodipine [Norvasc] 5 mg PO DAILY 03/25/18 Duloxetine Hcl [Cymbalta] 60 mg PO DAILY 03/25/18 Losartan Potassium [Cozaar] 100 mg PO DAILY 03/25/18 Vitamin B Comp W-C [Allbee W/C Caplet, Thera B Comp/C] 1 cap PO DAILY 03/25/18 Dalfampridine [Ampyra] 10 mg PO BID@0900,2100 03/29/18 Carbamazepine [Tegretol] 150 mg PO 0800,2000 07/29/18 Dronabinol [Marinol] 2.5 mg PO BID 07/29/18 Multivitamin [Once Daily] 1 each PO DAILY 07/29/18 Calcium Citrate/Vitamin D3 [Calcium Citrate with D Tablet] 1 each PO BID 07/30/18 Docusate Sodium [Colace] 250 mg PO DAILY 07/30/18 Theophylline Anhydrous [Torsten-24] 100 mg PO DAILY 07/30/18 Glatiramer Acetate 40 mg SQ SUTUTH@1000 10/02/18 Polyethylene Glycol 3350 [Miralax] 17 gm PO DAILY 10/04/18 Levofloxacin [Levaquin] 500 mg PO DAILY #5 tab 10/05/18 Prednisone 10 mg PO DAILY #30 tab 10/05/18 The following prescriptions were given: Levofloxacin [Levaquin] 500 mg PO DAILY #5 tab Transmission Status: Pending to [id number] Prednisone 10 mg PO DAILY #30 tab Transmission Status: Pending to [id number] Primary Care Physician: Mario Giraldo MD [Primary Care Provider] - Please follow up with your Primary Care Physician in: 1 week. Test Results: Test results from this visit will be discussed in further detail at your follow- up appointment, if applicable.
[2018-10-05 10:41] VITALS: PULSE 98; RESP 22; O2SAT 91
--- NOTE | 2018-10-05 14:15 | DS.PCM_ITS ---
Discharge Date and Diagnosis Date of Admission: 10/02/18 Date of Discharge: 10/05/18 - Primary Discharge Diagnosis #1 acute COPD exacerbation. #2 acute hypoxic respiratory failure. - Secondary Discharge Diagnosis Chronic Problems (Last Reviewed 10/02/18 @ 17:19 by Mario Bedoya DO) Ulcerative colitis (Chronic) Seizure disorder (Chronic) Depression (Chronic) Physical debility (Chronic) Hypertension (Chronic) COPD (chronic obstructive pulmonary disease) (Chronic) Multiple sclerosis (Chronic) Dysphagia (Chronic) Anemia (Chronic) BPH (benign prostatic hypertrophy) (Chronic) Vitamin D deficiency (Chronic) GERD (gastroesophageal reflux disease) (Chronic) Ulcerative esophagitis (Chronic) Gout (Chronic) Hospital Course and Treatment Imaging Results: Clinical Impression(s) from Imaging Studies Chest X-Ray 10/02/18 16:03 IMPRESSION: 1. No airspace consolidation or pleural effusion. 2. COPD with bibasilar fibrotic changes. Electronically Signed: Rafi Haji MD at 16:55 EDT , Service support , Operations: None Procedures: None Summary of Care Provided: Patient seen and examined on the day of discharge and appeared to be stable to be discharged home. His breathing continued to improve and he is on room air with pulse ox of 95%. Other vital signs are stable. The patient is a 73 year old M admitted because of shortness of breath with cough and he was found to have acute COPD exacerbation complicated by acute hypoxic respiratory failure. His chest x-ray showed no acute infiltrate or consolidation, pneumonia ruled out. Initially, patient needed to start on BiPAP because he was very short of breath, dyspneic and tachypneic. He was treated with IV steroids, IV antibiotics and bronchodilators. His routine blood work was remarkable for leukocytosis which seemed to be reactive and his white blood cell count went back to normal on the second day post admission. His blood culture showed no growth in 48 hours. With IV steroids and rhonchi dilators, patient symptoms improved and his oxygenation improved. It was down to nasal cannula and later, we were able to keep him on room air. On the day of discharge, his pulse ox was 95% on room air. Patient discharged home in a stable medical condition, discharged on tapering course of prednisone, discharged on Levaquin for 5 days, maintained on his previous home medications without any changes including bronchodilators, he did not require oxygen upon discharge, recommended follow-up with PCP in 1 week. - Physical Exam General: Alert, Oriented x3, Cooperative, No apparent distress HEENT: Atraumatic, PERRLA, EOMI, Normocephalic Oral: Moist Mucosa, No Gingival or Mucosal Lesions/ Ulcerations Neck: Supple, No JVD, Negative Carotid Bruits, Trachea Midline, Thyroid Normal Size and Texture Lungs: Clear to auscultation, Normal air movement, No rales, Diminished, Rhonchi Cardiovascular: Regular rate, Regular Rhythm, Normal S1, Normal S2, No murmurs Abdomen: Bowel Sounds Present, Soft, Non Tender, Non-Distended, No Hepato- splenomegaly Extremities: No clubbing, No cyanosis, No edema Skin: No rashes, No breakdown Lymphatic: No Cervical, Supraclavicular, or Inguinal Adenopathy Neurological: Cranial nerves II-XII grossly intact, Neuro grossly intact Psych/Mental Status: Normal Affect, Appropriate Vital Signs Temp Pulse Resp BP Pulse Ox 98.2 F 98 22 H 159/95 H 91 10/05/18 08:17 10/05/18 10:41 10/05/18 10:41 10/05/18 08:17 10/05/18 10:41 Oxygen Flow Rate (L/min) 2 Oxygen Delivery Method Room Air Weight: 139 lb 1.787 oz Body Mass Index (BMI) 20.5 Intake and Output for Last 24 Hours 10/03/18 10/04/18 10/05/18 23:59 23:59 23:59 Intake Total 2102 / 2273 1803 / 2036 1053 / 1053 Output Total 1650 / 1850 1395 / 1595 450 / 450 Balance 452 / 423 408 / 441 603 / 603 Microbiology Past 72 Hours 10/02/18 16:10 Blood Culture - Preliminary Blood Culture (Wb) #2 - Right Forearm No growth in 48 hours. 10/02/18 16:00 Blood Culture - Preliminary Blood Culture (Wb) - Anticubital Right No growth in 48 hours. Discharge Activity: Return to Normal Activity Weight Bearing Status: Weight bearing as tolerated Call your doctor if you observe: Fever of 101 or Higher, Shortness of breath, Dizziness, Fainting spells, Chest pain, Increased palpitations (irregular heartbeat), Uncontrolled pain Home Medications: Medications to take at Discharge Cholecalciferol (VIT D3) [Vitamin D3] 5,000 unit PO DAILY 02/20/14 coenzyme Q10 10 mg capsule 100 mg PO DAILY 02/19/17 lansoprazole 30 mg capsule,delayed release 30 mg PO DAILY 02/19/17 ipratropium-albuterol 0.5 mg-3 mg(2.5 mg base)/3 mL nebulization soln 3 ml INHALATION TID #180 ml 03/24/17 budesonide 0.5 mg/2 mL suspension for nebulization 0.5 mg INHALATION QDAY #60 ml 03/25/17 Albuterol Sulfate [Proventil Hfa] 1.25 gm IH Q4H PRN 03/25/18 Amlodipine [Norvasc] 5 mg PO DAILY 03/25/18 Duloxetine Hcl [Cymbalta] 60 mg PO DAILY 03/25/18 Losartan Potassium [Cozaar] 100 mg PO DAILY 03/25/18 Vitamin B Comp W-C [Allbee W/C Caplet, Thera B Comp/C] 1 cap PO DAILY 03/25/18 Dalfampridine [Ampyra] 10 mg PO BID@0900,2100 03/29/18 Carbamazepine [Tegretol] 150 mg PO 0800,199907/29/18 Dronabinol [Marinol] 2.5 mg PO BID 07/29/18 Multivitamin [Once Daily] 1 each PO DAILY 07/29/18 Calcium Citrate/Vitamin D3 [Calcium Citrate with D Tablet] 1 each PO BID 07/30/18 Docusate Sodium [Colace] 250 mg PO DAILY 07/30/18 Theophylline Anhydrous [Torsten-24] 100 mg PO DAILY 07/30/18 Glatiramer Acetate 40 mg SQ SUTUTH@1000 10/02/18 Polyethylene Glycol 3350 [Miralax] 17 gm PO DAILY 10/04/18 Levofloxacin [Levaquin] 500 mg PO DAILY #5 tab 10/05/18 Prednisone 10 mg PO DAILY #30 tab 10/05/18 Following Prescrptions Were Given to Patient: Levofloxacin [Levaquin] 500 mg PO DAILY #5 tab Transmission Status: [id number] Prednisone 10 mg PO DAILY #30 tab Transmission Status: Re[id number] Primary Care Physician: Mario Giraldo MD [Primary Care Provider] - Please follow up with your Primary Care Physician in: 1 week. Please Follow Up With: Mario Giraldo MD When: 1 week Disposition: Home Minutes spent on discharge:: 26 Patient Condition:: Stable Medical Necessity - Tobacco Use Smoking Status: Former smoker Meaningful Use Info Meaningful Use Diagnoses (Choose all that apply): None applicable Code Visit Inpatient E&M: 75422 Disch Hosp
--- NOTE | 2018-10-06 15:52 | CASEMGMT ---
ERIN MILLER Discharge Follow-Up Phone Call. Lace: 12 Strata: 4 Discharge Date: 10/05/18 Adm Dx: COPD Exac Call to pt to inquire about how he has been doing since being discharged from the hospital. Pt's , Johanne, answered and spoke with ERIN MILLER. Johanne states she was able to cherry picker operator the prescriptions as ordered and that she called and cancelled the appt with Dr Giraldo, but she is going to call back and re-schedule it. Hemant RITTER RN, CM
== END 2018-10-05 11:40 | disposition home or self-care (01) | DRG 189 ==
LOC: ED 16:17 → MS3 17:35
PROVIDERS: Emergency Provider Emergency Medicine; Family Provider Family Medicine; PCP Family Medicine; Visit Provider Hospitalist
DX: J96.01 Acute respiratory failure with hypoxia (principal); J44.1 Chronic obstructive pulmonary disease with (acute) exacerbation; K51.90 Ulcerative colitis, unspecified, without complications; R64 Cachexia; E46 Unspecified protein-calorie malnutrition; Z66 Do not resuscitate; G35 Multiple sclerosis; G40.909 Epilepsy, unspecified, not intractable, without status epilepticus; I10 Essential (primary) hypertension; F32.9 Major depressive disorder, single episode, unspecified; D64.9 Anemia, unspecified; N40.0 Benign prostatic hyperplasia without lower urinary tract symptoms; K21.9 Gastro-esophageal reflux disease without esophagitis; M10.9 Gout, unspecified; E55.9 Vitamin D deficiency, unspecified; R53.81 Other malaise; Z87.891 Personal history of nicotine dependence; Z68.20 Body mass index [BMI] 20.0-20.9, adult
CPT/HCPCS: 36415; 71045; 80048; 80076; 81001; 83605; 85025; 87040; 93005; 94002; 94640; 94667; 94668; 97162; 97166; 97530; 99251; 99285; J7030; J7040; A4216; G0463

== ENCOUNTER → 2018-10-26 11:45 | Outpatient (CLI) | payer MEDICARE, OTHER, SELFPAY ==
[2018-10-02 18:34] VITALS: BMI 20.5
[2018-10-26 11:54] LABS: Bacteria 0 SEEN /hpf (None Seen); Mucous, Urine 0 SEEN /hpf (<or=2+); Red Blood Cells-Urine 0 SEEN /hpf (0-5); Squamous Epithelial Cells - UA 0 SEEN /hpf (0-5); White Blood Cells 0 SEEN /hpf (0-5)
[2018-10-26 13:49] LABS: Color, Urine Yellow (Yellow); Glucose, Dipstick Normal (Normal); Ketone-Dipstick Negative (Negative); Leukocyte Esterase-Dipstick Negative /ul (Negative); Nitrite-Dipstick Negative (Negative); Occult Blood-Urine Negative /ul (Negative); Protein-Dipstick Negative (Negative); Specific Gravity, Urine 1.015 (1.002-1.030); Urine Bilirubin Dipstick Negative (Negative); Urine Clarity Sl. Cloudy (Clear); Urine Urobilinogen Normal (Normal)
[2018-10-26 13:50] LABS: Absolute Lymphocyte Count 0.91 X10^3/uL (0.83-4.51); Absolute Neutrophil Count 8.9 X10^3/uL (2.0-7.7); Basophil# 0.07 X10^3/uL; Basophil% 0.6 % (0-1); Eosinophil# 0.18 X10^3/uL; Eosinophils% 1.6 % (0-5); Hematocrit 40.6 % (40-54); Hemoglobin 12.9 g/dL (13.0-16.5); Lymphocyte # 0.91 X10^3/ul (4.0); Lymphocyte % 8.3 % (19-41); Mean Corp Hgb Conc 31.8 g/dL (32-36); Mean Corpuscular Hgb 27.3 pg (27.0-32.0); Mean Platelet Vol. 10.9 fl (6.2-12.0); Monocyte# 0.87 X10^3/uL; Monocyte% 7.9 % (0-10); NRBC Flagged by Analyzer 0 % (0-5); Neutrophil # 8.91 X10^3/uL (2.7-7.7); Neutrophil % 81.3 % (47-70); Platelet Count 244 K/mm3 (150-450); RBC Distribution Width CV 17.2 % (11.6-14.6); RET-HE 30.1 pg (30-35); Red Blood Count 4.72 M/mm3 (4.6-6.2); Reticulocyte Count 0.91 % (0.5-1.5)
[2018-10-26 13:54] LABS: Osmolality, Urine 658 mOsm/KG
[2018-10-26 13:59] LABS: Amorphous Sediment 2+ PHOS
[2018-10-26 14:12] LABS: Vitamin B12 1324 pg/mL (211-911)
[2018-10-26 14:27] LABS: Microalbumin,Random Urine 15.1 mg/L (NO RANGE EST.); Protein, Urine (Random) 12.1 mg/dL (<11.9); Protein:Creat Ratio 140 mg/g CRE (0-200)
[2018-10-26 14:52] LABS: ALB/GLOB Ratio 0.9 RATIO (0.9-2.4); AST(SGOT) 27 U/L (15-37); Alanine Aminotransfer ALT/SGPT 41 U/L (16-61); Albumin, Serum 3.4 g/dL (3.2-5.0); Alkaline Phosphatase 97 U/L (45-117); Anion Gap 7 (5-15); BUN 21 mg/dL (7-18); BUN/Creat Ratio 25.8 RATIO (10-20); Chloride 101 mmol/L (98-107); Creatinine, Serum 0.82 mg/dL (0.70-1.30); EST Glomerular Filtration Rate 99 mL/min (>60); Est Glom Filt Rate - Afr Amer 119 mL/min (>60); Ferritin 24 ng/mL (26-388); Globulin 3.9 g/dL (2.2-4.2); Glucose 77 mg/dL (74-106); Iron 38 ug/dL (65-175); Iron Binding Capacity,Total 323 ug/dL (250-450); Potassium 4.2 mmol/L (3.5-5.1); Protein, Total 7.3 g/dL (6.4-8.2); Sodium Level 139 mmol/L (136-145)
== END ==
PROVIDERS: Family Provider Family Medicine; PCP Family Medicine; Referring Provider Family Medicine; Visit Provider Family Medicine
DX: D64.9 Anemia, unspecified (principal); R89.5 Abnormal microbiological findings in specimens from other organs, systems and tissues
CPT/HCPCS: 36415; 80053; 81001; 82043; 82570; 82607; 82728; 82746; 83540; 83550; 83935; 84156; 84550; 85025; 85045

== ENCOUNTER → 2018-12-30 14:09 | Outpatient (CLI) | payer MEDICARE, OTHER, SELFPAY ==
[2018-10-02 18:34] VITALS: BMI 20.5
[2018-12-30 15:49] LABS: Absolute Lymphocyte Count 0.75 X10^3/uL (0.83-4.51); Absolute Neutrophil Count 7.3 X10^3/uL (2.0-7.7); Basophil# 0.08 X10^3/uL; Basophil% 0.9 % (0-1); Eosinophil# 0.14 X10^3/uL; Eosinophils% 1.5 % (0-5); Hematocrit 42.3 % (40-54); Lymphocyte # 0.75 X10^3/ul (4.0); Lymphocyte % 8.3 % (19-41); Mean Corp Hgb Conc 30.7 g/dL (32-36); Mean Corpuscular Hgb 26.2 pg (27.0-32.0); Mean Corpuscular Volume 85.1 fL (80-94); Mean Platelet Vol. 10.9 fl (6.2-12.0); Monocyte# 0.79 X10^3/uL; Monocyte% 8.7 % (0-10); NRBC Flagged by Analyzer 0 % (0-5); Neutrophil # 7.26 X10^3/uL (2.7-7.7); Neutrophil % 80.4 % (47-70); Platelet Count 299 K/mm3 (150-450); RBC Distribution Width CV 17.8 % (11.6-14.6); RBC Distribution Width SD 55.1 fl (35.1-43.9); RET-HE 32.1 pg (30-35); Red Blood Count 4.97 M/mm3 (4.6-6.2); Reticulocyte Count 0.87 % (0.5-1.5)
[2018-12-30 16:14] LABS: ALB/GLOB Ratio 0.9 RATIO (0.9-2.4); AST(SGOT) 20 U/L (15-37); Alanine Aminotransfer ALT/SGPT 29 U/L (16-61); Albumin, Serum 3.6 g/dL (3.2-5.0); Alkaline Phosphatase 124 U/L (45-117); Anion Gap 4 (5-15); BUN 15 mg/dL (7-18); BUN/Creat Ratio 19.3 RATIO (10-20); Calcium,Total 9.5 mg/dL (8.5-10.1); Chloride 103 mmol/L (98-107); Creatinine, Serum 0.78 mg/dL (0.70-1.30); EST Glomerular Filtration Rate 104 mL/min (>60); Est Glom Filt Rate - Afr Amer 126 mL/min (>60); Ferritin 18 ng/mL (26-388); Globulin 4.2 g/dL (2.2-4.2); Glucose 79 mg/dL (74-106); Iron 34 ug/dL (65-175); Iron Binding Capacity,Total 289 ug/dL (250-450); Potassium 4.5 mmol/L (3.5-5.1); Protein, Total 7.8 g/dL (6.4-8.2); Sodium Level 139 mmol/L (136-145)
[2019-01-03 10:19] LABS: Trileptal-Oxcarbazepine 24 ug/mL (10-35)
== END ==
PROVIDERS: Family Provider Family Medicine; PCP Family Medicine; Referring Provider Family Medicine; Visit Provider Family Medicine
DX: M79.2 Neuralgia and neuritis, unspecified (principal); E61.1 Iron deficiency; K22.10 Ulcer of esophagus without bleeding
CPT/HCPCS: 36415; 80053; 82542; 82728; 83540; 83550; 85025; 85045

== ENCOUNTER 2019-03-09 12:54 | Inpatient (IN) | payer MEDICARE, OTHER, SELFPAY ==
[2019-03-03 10:02] VITALS: BMI 20.5
[2019-03-09] VITALS (11 sets, daily range): BP systolic 136–146; BP diastolic 79–89; PULSE 82–95; RESP 18–24; TEMP 36.6–37; O2SAT 92–99; BMI 20.9; BMI 20.2
--- NOTE | 2019-03-09 13:21 | EKG12_ITS ---
Test Reason : SOB Blood Pressure : / mmHG Vent. Rate : 087 BPM Atrial Rate : 087 BPM P-R Int : 146 ms QRS Dur : 090 ms QT Int : 368 ms P-R-T Axes : 077 075 080 degrees QTc Int : 442 ms Normal sinus rhythm Normal ECG Confirmed by ASHELY GONSALEZ, KODI ([id number]), writer editor ARSALAN PEREZ ([id number]) on 03/10/2019 10:33:03 AM Referred By: Abbie Mckeon Confirmed By:KODI LUND MD
--- NOTE | 2019-03-09 13:22 | ED.DCSUM_ITS ---
History of Present Illness Chief Complaint: Shortness of Breath Informant: Patient, Family Onset: Days - 3 days Context: Gradual Onset Current Severity: Mild Maximum Severity: Moderate Narrative: Patient presents with increasing shortness of breath for the past 3 days. He does have a history of COPD but is not on home O2. He does have a regimen of breathing treatments that he does at home. Family had increased the use of albuterol recently. Family member states that when he gets up in the morning his O2 sats are usually in the mid to upper 80s until he gets his breathing treatments and. This morning his sats were in the upper 60s. She was able to get his sats up to the 80s but not beyond. EMS reports O2 sat of 83% on room air on their arrival. Patient was placed on 2 L nasal cannula and sats are now in the low to mid 90s. Patient denies chest pain. He has not had fever or chills. - Past Medical History (1) Presence of externally removable percutaneous endoscopic gastrostomy (PEG) tube Status: Chronic (2) Anemia Status: Chronic (3) BPH (benign prostatic hypertrophy) Status: Chronic (4) COPD (chronic obstructive pulmonary disease) Status: Chronic (5) Depression Status: Chronic (6) Dysphagia Status: Chronic (7) GERD (gastroesophageal reflux disease) Status: Chronic (8) Gout Status: Chronic (9) Hypertension Status: Chronic (10) Multiple sclerosis Status: Chronic (11) Seizure disorder Status: Chronic (12) Ulcerative colitis Status: Chronic (13) Ulcerative esophagitis Status: Chronic Past Medical History - Allergies and Home Meds Allergies/Adverse Reactions: Allergies hydrochlorothiazide Allergy (Verified 03/09/19 12:58) Unknown Primary Care Physician: Mario Giraldo MD [Primary Care Provider] - Prior records reviewed: Yes Surgical History: - Lives: Spouse/ Significant Other Smoking Status: Former smoker - Family History Maternal Family History: Family History (Last Reviewed 03/03/19 @ 10:01 by Greer Don) Mother Colon cancer Breast cancer Lung cancer Father CAD (coronary artery disease) Heart disease Family History: Reports: Cancer - 70's Paternal Family History: Family History (Last Reviewed 03/03/19 @ 10:01 by Greer Don) Mother Colon cancer Breast cancer Lung cancer Father CAD (coronary artery disease) Heart disease Family History: Reports: Heart Disease - age 70's Review of Systems General: Denies: Chills, Fever Eyes: Denies: Visual changes - bilaterally ENT: Denies: Bilateral ear pain Cardiovascular: Denies: Chest pain Respiratory: Reports: Dyspnea, Cough, Sputum Gastrointestinal: Denies: Abdominal pain, Nausea, Vomiting, Diarrhea Genitourinary: Denies: Dysuria Musculoskeletal: Denies: Extremity Pain Neurological: Denies: Headache Endocrine: Denies: Polyuria Allergy: Denies: Uticaria Physical Exam Vital Signs/Narrative: Vital Signs Temp Pulse Resp BP Pulse Ox 03/09/19 12:55 98 F 88 24 H 138/89 H 99 Inital Vital Signs reviewed: Yes General: Well nourished, Well developed Head: Normocephalic ENT: Moist mucous membranes Neck: Supple Cardiovascular: Regular rate, Regular rhythm Respiratory: - - Diminished throughout with wheezes, worse at the right base. Abdomen: Soft, Nontender, - - PEG tube in place. Skin: Normal color Neurological: Alert, Oriented x3 Psychological: Normal affect Diagnostic/Tx/Re-eval Impressions Chest X-Ray 03/09/19 13:25 IMPRESSION: 1. Developing right lower lobe pneumonia. Electronically Signed: Rafi Haji MD ([place]) at 13:59 EST , Service support , 03/09/19 13:25 Chest 1 View (Portable) [RAD] Stat Laboratory Results 03/09/19 03/09/19 13:35 13:35 WBC 13.5 H RBC 4.84 Hgb 12.8 L Hct 41.0 MCV 84.7 MCH 26.4 L MCHC 31.2 L RDW Std Deviation 56.0 H RDW Coeff of Ivelisse 18.4 H Plt Count 295 MPV 10.8 Immature Gran % (Auto) 0.300 Neut % (Auto) 88.3 H Lymph % (Auto) 4.5 L Trinity % (Auto) 6.2 Eos % (Auto) 0.4 Baso % (Auto) 0.3 Absolute Neuts (auto) 11.9 H Absolute Lymphs (auto) 0.60 L Nucleated RBC % 0 Differential Comment SCANNED Sodium 138 Potassium 4.1 Chloride 98 Carbon Dioxide 36.0 H Anion Gap 4 L BUN 14 Creatinine 0.86 Estim Creat Clear Calc 69.47 Est GFR (MDRD) Af Amer 112 Est GFR (MDRD) Non-Af 92 BUN/Creatinine Ratio 16.2 Glucose 98 Calcium 9.6 Troponin I < 0.015 - EKG Initial EKG Interpretation: Sinus Rhythm - Sinus 87 with no acute ischemia. - Medical Decision Making Patient was ordered a cycle of breathing treatments on arrival. On repeat auscultation he has significant wheezes throughout. Solu-Medrol is ordered. Patient's x-ray does reveal early right lower lobe infiltrate. He is ordered Levaquin. Blood cultures have been drawn. Lactate is pending at this time. Patient be admitted for further treatment. ED Disposition - Plan for ED Patient: Disposition: Acute Care Hospital [facility] Diagnosis: Pneumonia, COPD exacerbation Referrals: Mario Giraldo MD [Primary Care Provider] -
--- NOTE | 2019-03-09 13:25 | RAD_ITS ---
STUDY: X-RAY CHEST REASON FOR EXAM: Male, 74 years old. SOB X3 DAYS. HX COPD. PER EMS 83% ON RA TECHNIQUE: AP COMPARISON: 10/02/2018 FINDINGS: There is hyperinflation of the lungs consistent with chronic obstructive lung disease (COPD). Parenchymal opacity in the right lower lobe is new since the prior study. There is fibrotic scarring in the left lung base developing pneumonia in the right lung base, stable. There is pleural fibrotic scarring of the right costophrenic angle. Normal size heart. Normal mediastinum and rodriguez. Normal visualized pulmonary arteries. There is atherosclerotic calcification of the aortic arch with tortuosity. There is a dextroscoliosis of the thoracic spine. Fusion hardware of the lower cervical spine demonstrated. There is no demonstrated abnormality of the visualized soft tissue structures of the upper abdomen. RAD/Chest 1 View (Portable) IMPRESSION: 1. Developing right lower lobe pneumonia. Electronically Signed: Rafi Haji MD ([place]) at 13:59 EST , Service support ,
[2019-03-09] MEDS: Ipratropium/Albuterol Sulfate 3 ML AMPUL.NEB INHALATION ×2 (13:40→20:10)
[2019-03-09 13:46] LABS: Absolute Neutrophil Count 11.9 X10^3/uL (2.0-7.7); Basophil# 0.04 X10^3/uL; Basophil% 0.3 % (0-1); Eosinophil# 0.05 X10^3/uL; Eosinophils% 0.4 % (0-5); Hemoglobin 12.8 g/dL (13.0-16.5); Lymphocyte % 4.5 % (19-41); Mean Corp Hgb Conc 31.2 g/dL (32-36); Mean Corpuscular Hgb 26.4 pg (27.0-32.0); Mean Corpuscular Volume 84.7 fL (80-94); Mean Platelet Vol. 10.8 fl (6.2-12.0); Monocyte# 0.84 X10^3/uL; Monocyte% 6.2 % (0-10); NRBC Flagged by Analyzer 0 % (0-5); Neutrophil % 88.3 % (47-70); POSITIVE DIFFERENTIAL YES; Platelet Count 295 K/mm3 (150-450); RBC Distribution Width CV 18.4 % (11.6-14.6); Red Blood Count 4.84 M/mm3 (4.6-6.2); White Blood Count 13.5 K/mm3 (4.4-11.0)
[2019-03-09] MEDS: Albuterol 2.5 MG/3 ML VIAL.NEB. INHALATION ×2 (13:49→14:34)
[2019-03-09] MEDS: 0.9% Normal Saline 1,000 ML 150 ML IV (13:50)
[2019-03-09 13:54] LABS: Differential Indicated SCAN CRITERIA MET
[2019-03-09 14:03] LABS: Anion Gap 4 (5-15); BUN 14 mg/dL (7-18); BUN/Creat Ratio 16.2 RATIO (10-20); Calcium,Total 9.6 mg/dL (8.5-10.1); Chloride 98 mmol/L (98-107); Creatinine, Serum 0.86 mg/dL (0.70-1.30); EST Glomerular Filtration Rate 92 mL/min (>60); Est Glom Filt Rate - Afr Amer 112 mL/min (>60); Estimated Creatinine Clearance 69.47 ml/min; Glucose 98 mg/dL (74-106); Potassium 4.1 mmol/L (3.5-5.1); Sodium Level 138 mmol/L (136-145)
[2019-03-09 14:12] LABS: Differential Comment SCANNED
[2019-03-09] MEDS: levoFLOXacin IV 750 MG/150 ML BAG 100 MG IV (15:01)
[2019-03-09] MEDS: MethylPREDNISolone 125 MG/2 ML Vial IV (15:01)
--- NOTE | 2019-03-09 15:01 | NURSING ---
MED SURG WHITE PNEUMONIA, COPD
--- NOTE | 2019-03-09 15:07 | PCM.HP.STD ---
Problem List (1) Sepsis Status: Acute (2) Pneumonia Status: Acute (3) COPD exacerbation Status: Acute (4) Depression Status: Chronic Qualifiers: (5) Hypertension Status: Chronic Qualifiers: (6) Multiple sclerosis Status: Chronic (7) Dysphagia Status: Chronic Qualifiers: (8) BPH (benign prostatic hypertrophy) Status: Chronic (9) GERD (gastroesophageal reflux disease) Status: Chronic Qualifiers: (10) Ulcerative esophagitis Status: Chronic History of Present Illness Date of Admission: 03/09/19 Chief Complaint: sob The patient is a 74 year old M with pmhx of COPD, MS, dysphagia, who presented to the ER with c/o SOB and hypoxia. He has been increasingly SOB over the past 3 days. His was trying to take care of him at home by giving him additional chest physiotherapy and albuterol treatments. He was satting in the 80s and would increase to the 90s with extra treatment. Today however he was satting in the 60s and only improved to the 80s after albuterol. He has a cough productive of thick yellow sputum. He denies fevers or chills. He denies chest pain. He denies N/V/D. He denies sick contacts. He does not have a general counsel. He smoked about 40 years, quit in 1992. [] Past Medical History Past Medical History (Chronic Problems): Chronic Problems (Last Reviewed 03/03/19 @ 10:01 by Greer Don) 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) Ulcerative colitis (Chronic) Seizure disorder (Chronic) Depression (Chronic) Physical debility (Chronic) Hypertension (Chronic) COPD (chronic obstructive pulmonary disease) (Chronic) Multiple sclerosis (Chronic) Dysphagia (Chronic) Anemia (Chronic) BPH (benign prostatic hypertrophy) (Chronic) Vitamin D deficiency (Chronic) GERD (gastroesophageal reflux disease) (Chronic) Ulcerative esophagitis (Chronic) Gout (Chronic) Medical History: Medical History (Last Reviewed 03/03/19 @ 10:01 by Greer Don) 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) Z93.1 Depression (Chronic) F32.9 Physical debility (Chronic) R53.81 Hypertension (Chronic) I10 COPD (chronic obstructive pulmonary disease) (Chronic) J44.9 Multiple sclerosis (Chronic) G35 Dysphagia (Chronic) R13.10 Anemia (Chronic) D64.9 BPH (benign prostatic hypertrophy) (Chronic) N40.0 Vitamin D deficiency (Chronic) E55.9 GERD (gastroesophageal reflux disease) (Chronic) K21.9 Ulcerative esophagitis (Chronic) K22.10 Gout (Chronic) M10.9 Normal colonoscopy Open wound of buttock, complicated S31.809A Allergies hydrochlorothiazide Allergy (Verified 03/09/19 12:58) Unknown Home Medications: Ambulatory Orders Medication Instructions Recorded Cholecalciferol (VIT D3) [Vitamin 5,000 unit PO DAILY 02/20/14 D3] coenzyme Q10 10 mg capsule 100 mg PO DAILY 02/19/17 lansoprazole 30 mg capsule,delayed 30 mg PO DAILY 02/19/17 release ipratropium-albuterol 0.5 mg-3 3 ml INHALATION TID #180 ml 03/24/17 mg(2.5 mg base)/3 mL nebulization soln budesonide 0.5 mg/2 mL suspension 0.5 mg INHALATION QDAY #60 ml 03/25/17 for nebulization Albuterol Sulfate [Proventil Hfa] 1.25 gm IH Q4H PRN 03/25/18 Amlodipine [Norvasc] 5 mg PO DAILY 03/25/18 Duloxetine Hcl [Cymbalta] 60 mg PO DAILY 03/25/18 Losartan Potassium [Cozaar] 100 mg PO DAILY 03/25/18 Vitamin B Comp W-C [Allbee W/C 1 cap PO DAILY 03/25/18 Caplet, Thera B Comp/C] Dalfampridine [Ampyra] 10 mg PO BID@0900,2100 03/29/18 Dronabinol [Marinol] 2.5 mg PO BID 07/29/18 Multivitamin [Once Daily] 1 ea PO DAILY 07/29/18 Calcium Citrate/Vitamin D3 1 ea PO BID 07/30/18 [Calcium Citrate with D Tablet] Docusate Sodium [Colace] 250 mg PO DAILY 07/30/18 Theophylline Anhydrous [Torsten-24] 100 mg PO DAILY 07/30/18 Glatiramer Acetate 40 mg SQ SUTUTH@1000 10/02/18 Polyethylene Glycol 3350 [Miralax] 17 gm PO DAILY 10/04/18 Oxcarbazepine [Trileptal] 300 mg PO TID 03/09/19 Surgical History: Surgical History (Last Reviewed 03/03/19 @ 10:01 by Greer Don) History of esophagogastroduodenoscopy (EGD) Z98.890 S/P percutaneous endoscopic gastrostomy (PEG) tube placement Z93.1 Surgical History: - Psychiatric History: Depression Lives: Spouse/ Significant Other Smoking Status: Former smoker Tobacco Use: Non-smoker Alcohol: None Drugs: None - *Family History Maternal Family History: Family History (Last Reviewed 03/03/19 @ 10:01 by Greer Don) Mother Colon cancer Breast cancer Lung cancer Father CAD (coronary artery disease) Heart disease History Items: Cancer - 70's Paternal Family History: Family History (Last Reviewed 03/03/19 @ 10:01 by Greer Don) Mother Colon cancer Breast cancer Lung cancer Father CAD (coronary artery disease) Heart disease History Items: Heart Disease - age 70's Review of Systems Constitutional: Denies: Chills, Fever, Weight Change HEENT: Denies: Head Aches, Sinus Congestion, Sinus Drainage Cardiovascular: Denies: Chest Pain, Palpitations Respiratory: Reports: Cough, Shortness of Breath, Shortness of breath at rest, Shortness of breath upon exertion, Sputum production, Wheezing. Denies: Pleuritic Pain Gastrointestinal: Denies: Abdominal Pain, Nausea, Vomiting Genitourinary: Denies: Dysuria, Frequency, Urgency Musculoskeletal: Denies: Joint Pain, Joint Tenderness, Muscle pain Skin: Denies: Rash, Wounds Neurological: Denies: Numbness, Tingling, Focal weakness Psychiatric: Denies: Anxiety, Depression, Homicidal Ideations, Suicidal Ideations Hematologic/ Lymphatic: Denies: Easy Bruising, Easy Bleeding VTE Information - Inpt Only VTE Present on Admission: No VTE Mechan Device Prophylaxis: None VTE Pharm Prophylaxis ordered?: Yes Patient Problems: Active and Suspected Problems (Last Reviewed 03/03/19 @ 10:01 by Greer Don) Pneumonia (Acute) Sepsis (Acute) COPD exacerbation (Acute) - Physical Exam Vitals/I&O's: Vital Signs Temp Pulse Resp BP Pulse Ox 98.6 F 92 24 H 146/80 H 95 03/09/19 14:00 03/09/19 15:06 03/09/19 15:06 03/09/19 15:06 03/09/19 15:06 Oxygen Flow Rate (L/min) 1 Oxygen Delivery Method Nasal Cannula Weight: 141 lb 8.588 oz Body Mass Index (BMI) 20.9 General: Alert, Cooperative, Lethargic, - - oriented x 2 (guessed year as 2015 and 2020) HEENT: Atraumatic, PERRLA, EOMI, Normocephalic Neck: Supple, No JVD, Negative Carotid Bruits Lungs: Diminished, Rales, Wheezes Cardiovascular: Regular rate, No murmurs Abdomen: Bowel Sounds Present, Soft, Non Tender Extremities: No edema, Capillary Refill Less than 3 Seconds Skin: No rashes, No breakdown Musculoskeletal: No Tenderness to Palpation of Joints or Extremities Neurological: Cranial nerves II-XII grossly intact Psych/Mental Status: Normal Affect, Appropriate, Alert and oriented to time, place, person, mood and affect Laboratory Results 03/09/19 13:35: WBC 13.5 H, RBC 4.84, Hgb 12.8 L, Hct 41.0, MCV 84.7, MCH 26.4 L, MCHC 31.2 L, RDW Std Deviation 56.0 H, RDW Coeff of Ivelisse 18.4 H, Plt Count 295, MPV 10.8, Immature Gran % (Auto) 0.300, Neut % (Auto) 88.3 H, Lymph % (Auto) 4.5 L, [place] % (Auto) 6.2, Eos % (Auto) 0.4, Baso % (Auto) 0.3, Absolute Neuts (auto) 11.9 H, Absolute Lymphs (auto) 0.60 L, Nucleated RBC % 0, Differential Comment SCANNED 03/09/19 13:35: Sodium 138, Potassium 4.1, Chloride 98, Carbon Dioxide 36.0 H, Anion Gap 4 L, BUN 14, Creatinine 0.86, Estim Creat Clear Calc 69.47, Est GFR (MDRD) Af Amer 112, Est GFR (MDRD) Non-Af 92, BUN/Creatinine Ratio 16.2, Glucose 98, Calcium 9.6, Troponin I < 0.015 03/09/19 14:34: Lactic Acid Pending Current Medications Sodium Chloride () 1,000 mls @ 150 mls/hr IV .Q6H40M CORNEL Last Admin: 03/09/19 13:50 Dose: 150 mls/hr Documented by: Levofloxacin (Levaquin Iv) 750 mg in 150 mls @ 100 mls/hr IV X1 ONE Stop: 03/09/19 15:53 Last Admin: 03/09/19 15:01 Dose: 100 mls/hr Documented by: Assessment/Plan All Active Problems (Last Reviewed 03/03/19 @ 10:01 by Greer Don) Pneumonia (Acute) Sepsis (Acute) Acute respiratory failure (Acute) COPD exacerbation (Acute) 1. Acute hypoxia 2/2 COPD exacerbation and acute pneumonia with acute sepsis - stable on 1lpm o2 via NC. no hx o2 use at home. Reportedly was in the 60s-80s at home. Sepsis criteria met with + CXR with RLL pna, tachypnea, leukocytosis, pulse >90. No fever. LA pending. CO2 elevated. Trop neg. -hx dysphagia - start zosyn to cover aspiration and get speech evals. -continue aerosols and solumedrol, IS and PEP therapy. -blood and sputum cultures. 2. Hx MS - ampyra, glatiramir 3. HTN - stable. continue home meds. 4. Depression - cymbalta 5. Seizure disorder - trileptal 6. Ulcerative esophagitis / GERD - continue PPI 7. Malnutrition - continue marinol. fountain pen nibs inspector consult to further quantify. DVT ppx: lovenox DC planning: may need home o2 This patient was seen by Miguelangel Benitez PA-C under the supervision of Dr. Mckeon.
[2019-03-09 15:10] LABS: Lactic Acid 1.1 mmol/L (0.4-1.9)
[2019-03-09 16:51] LABS: Magnesium 2.2 mg/dL (1.6-2.6)
--- NOTE | 2019-03-09 18:00 | NURSING ---
Per patient has not walked since 08/2018. States he is able to stand and pivot with assist of home gait belt as well as left ankle brace.
--- NOTE | 2019-03-09 18:06 | NURSING ---
Pt goes by [facility] Per , pt will not drink water but will drink gatorade. to bring in some from home. bringing in 3 medications from home that [facility] does not have on hand, underwear, pull ups, gait belt, boost, container to mix boost.
[2019-03-09] MEDS: 0.9% Normal Saline 1,000 ML 100 ML IV (20:07)
[2019-03-09] MEDS: OXcarbazepine 300 MG Tablet PO (20:54)
[2019-03-09] MEDS: DALFAMPRIDINE 10 MG TAB.ER.12H PO (21:41)
[2019-03-09] MEDS: Docusate Sodium 100 MG Capsule PO (22:00)
[2019-03-09] MEDS: guaiFENesin 600 MG Tablet PO (22:00)
[2019-03-09] MEDS: Dronabinol 2.5 MG Capsule PO (22:00)
[2019-03-09] MEDS: Multivitamins,Ther W-Minerals Tablet 1 TABLET PO (22:00)
[2019-03-10] VITALS (8 sets, daily range): BP systolic 132–142; BP diastolic 70–94; PULSE 82–92; RESP 16–22; TEMP 36.4–36.9; O2SAT 92–99
[2019-03-10] MEDS: 0.9% Normal Saline 1,000 ML 100 ML IV ×2 (05:47→15:59)
[2019-03-10] MEDS: OXcarbazepine 300 MG Tablet PO ×3 (05:56→17:23)
[2019-03-10 06:01] LABS: Absolute Lymphocyte Count 0.85 X10^3/uL (0.83-4.51); Absolute Neutrophil Count 6.9 X10^3/uL (2.0-7.7); Basophil# 0.01 X10^3/uL; Basophil% 0.1 % (0-1); Eosinophil# 0.01 X10^3/uL; Eosinophils% 0.1 % (0-5); Hemoglobin 10.1 g/dL (13.0-16.5); Lymphocyte # 0.85 X10^3/ul (4.0); Lymphocyte % 10.3 % (19-41); Mean Corp Hgb Conc 31.6 g/dL (32-36); Mean Corpuscular Hgb 26.3 pg (27.0-32.0); Mean Corpuscular Volume 83.3 fL (80-94); Monocyte# 0.46 X10^3/uL; Monocyte% 5.6 % (0-10); NRBC Flagged by Analyzer 0 % (0-5); Neutrophil # 6.89 X10^3/uL (2.7-7.7); Neutrophil % 83.5 % (47-70); Platelet Count 250 K/mm3 (150-450); RBC Distribution Width CV 18.3 % (11.6-14.6); RBC Distribution Width SD 54.9 fl (35.1-43.9); Red Blood Count 3.84 M/mm3 (4.6-6.2); White Blood Count 8.3 K/mm3 (4.4-11.0)
[2019-03-10 06:22] LABS: Anion Gap 5 (5-15); BUN 15 mg/dL (7-18); BUN/Creat Ratio 21.6 RATIO (10-20); Calcium,Total 8.6 mg/dL (8.5-10.1); Chloride 101 mmol/L (98-107); EST Glomerular Filtration Rate 118 mL/min (>60); Est Glom Filt Rate - Afr Amer 143 mL/min (>60); Estimated Creatinine Clearance 57.88 ml/min; Glucose 108 mg/dL (74-106); Potassium 4.4 mmol/L (3.5-5.1); Sodium Level 136 mmol/L (136-145)
[2019-03-10] MEDS: Ipratropium/Albuterol Sulfate 3 ML AMPUL.NEB INHALATION ×4 (06:58→19:38)
[2019-03-10] MEDS: Vitamin B Comp W-C Capsule 1 CAP PO (08:06)
[2019-03-10] MEDS: Calcium Carb/Vitamin D 1 TABLET Tablet PO ×2 (08:06→17:22)
[2019-03-10] MEDS: Docusate Sodium 100 MG Capsule PO ×2 (08:08→22:20)
[2019-03-10] MEDS: DULoxetine Hcl 60 MG Capsule PO (08:09)
[2019-03-10] MEDS: Losartan Potassium 100 MG Tablet PO (08:11)
[2019-03-10] MEDS: DALFAMPRIDINE 10 MG TAB.ER.12H PO ×2 (08:11→22:16)
[2019-03-10] MEDS: guaiFENesin 600 MG Tablet PO ×2 (08:12→22:20)
[2019-03-10] MEDS: Pantoprazole Sodium 40 MG Tablet PO (08:12)
[2019-03-10] MEDS: THEOPHYLLINE ANHYDROUS 100 MG CAP.ER.24H PO (08:13)
[2019-03-10] MEDS: amLODIPine 5 MG Tablet PO (08:13)
[2019-03-10] MEDS: Dronabinol 2.5 MG Capsule PO ×2 (08:16→22:26)
[2019-03-10] MEDS: Polyethylene Glycol 3350 17 GM PACKET PO (09:11)
[2019-03-10] MEDS: Enoxaparin 40 MG/0.4 ML Syringe SC (09:11)
[2019-03-10] MEDS: GLATIRAMER ACETATE 40 MG/ML SYRINGE SQ (09:11)
--- NOTE | 2019-03-10 10:45 | CASEMGMT ---
ERIN MILLER Face to Face with patient for initial transition planning/care coordination assessment. RN ANGELA introduced self and role at [facility]. Patient lying in bed, alert and oriented. Patient willing to participate in assessment and is able to answer all questions appropriately. Care providers, pharmacy, and demographics verified. Patient wishes to discharge home with resumption of his aides and [facility] for PT. Patient states he has no further needs or concerns at this time. CM to follow for discharge planning needs that may arise. PCP: Enzo Specialists: Arthur Neurolognadira Preferred Pharmacy: [facility] Prescription Benefit: yes Living Will/HPOA: Johanne Dang LNOK: Living Arrangements: Patient lives with who cares for patient in 2 story home with ramp to enter the home. Patient has stair lift to reach 2nd floor. Transportation: DME/HHC: Patient has wheelchair, walker, cane, raised toilet, shower chair, lift chair, grab bars and nebulizer at home. Patient has Private duty aides 6 days per week. Patient is current with [facility] for PT Disposition Plan: Patient to discharge home with resumption of services, family support, and follow-up plans in place. Will monitor for need for home oxygen at discharge. Cherie RITTER, RN, CM
--- NOTE | 2019-03-10 11:13 | CPS ---
vest therapy not done this am for 7:00 am rounds, patient was sleeping and a note was was left by significant other to not wake patient if he's sleeping. This RT asked patient if he wanted vest therapy this am and patient shook head no. would now like vest therapy done at 7 am before breakfast and tube feedings and to wake patient up for it. Will pass on in report.
--- NOTE | 2019-03-10 14:07 | CASEMGMT ---
LW in summary tab of echart. POA not completely scanned into summary tab, but it is in the echart. SW printed full document and will place in paper chart so it can be scanned into summary tab. Medical POA is Johanne Dang. CHUYITA Daniels
--- NOTE | 2019-03-10 14:48 | NURSING ---
offered pt to turn. pt declined.
--- NOTE | 2019-03-10 18:23 | PCM.PROGNOTE ---
Patient Problems: Active and Suspected Problems (Last Reviewed 03/03/19 @ 10:01 by Greer Don) Pneumonia (Acute) Sepsis (Acute) COPD exacerbation (Acute) Subjective: Patient was seen and examined today, he responded appropriately to questions but did not carry on a conversation with this examiner today. He has been afebrile today, his white blood cell count today was normal, he remains on oxygen at 2 L/min. Speech saw the patient today and had a discussion with the patient, he declines a modified barium swallow study at this time, the recommendations were to continue the patient on thin liquids with small bites and small sips remaining upright for 30 minutes after p.o. intake. - Physical Exam Vitals/I&O's: Vital Signs Temp Pulse Resp BP Pulse Ox 98.3 F 90 18 139/70 H 95 03/10/19 14:25 03/10/19 15:00 03/10/19 15:00 03/10/19 14:25 03/10/19 14:25 Oxygen Flow Rate (L/min) 2 Oxygen Delivery Method Nasal Cannula Weight: 62.2 kg Body Mass Index (BMI) 20.2 Intake and Output for Last 24 Hours 03/08/19 03/09/19 03/10/19 23:59 23:59 23:59 Intake Total 1347.5 / 1467.5 3492.00 / 3492.00 Output Total 2425 / 2425 Balance 1347.5 / 1267.5 1067.00 / 1067.00 General: Alert, Oriented x3, Cooperative, No apparent distress, Well developed HEENT: Atraumatic, PERRLA, EOMI, Normocephalic Oral: Moist Mucosa Neck: Supple, Trachea Midline, Thyroid Normal Size and Texture Lungs: Clear to auscultation, Normal air movement, No rhonchi, No wheeze, No rales Cardiovascular: Regular rate, Regular Rhythm, Normal S1, Normal S2, No murmurs Abdomen: Bowel Sounds Present, Soft, Non Tender, Non-Distended, - - PEG tube is present Extremities: No edema, Capillary Refill Less than 3 Seconds Skin: No rashes, No breakdown Musculoskeletal: Muscle Wasting - Over the lower extremities are noted, - - Hypotonicity over the lower extremities are noted Neurological: Cranial nerves II-XII grossly intact, Neuro grossly intact Psych/Mental Status: Appropriate, Flat Affect Microbiology Past 72 Hours 03/09/19 14:50 Blood Culture (Wb) - Anticubital Left Blood Culture - Preliminary No growth in 48 hours. 03/09/19 13:35 Blood Culture (Wb) - Anticubital Right Blood Culture - Preliminary No growth in 48 hours. 03/09/19 17:35 Mucosa - Nasopharyngeal Respiratory Panel (PCR) - Final 03/09/19 16:00 Urine, Clean Catch Streptococcus pneumoniae Antigen (M - Final 03/09/19 16:00 Urine, Clean Catch Legionella Antigen - Final Laboratory Results 03/10/19 05:36: WBC 8.3, RBC 3.84 L, Hgb 10.1 L, Hct 32.0 L, MCV 83.3, MCH 26.3 L, MCHC 31.6 L, RDW Std Deviation 54.9 H, RDW Coeff of Ivelisse 18.3 H, Plt Count 250, MPV 11.0, Immature Gran % (Auto) 0.400, Neut % (Auto) 83.5 H, Lymph % (Auto) 10.3 L, [place] % (Auto) 5.6, Eos % (Auto) 0.1, Baso % (Auto) 0.1, Absolute Neuts (auto) 6.9, Absolute Lymphs (auto) 0.85, Nucleated RBC % 0 03/10/19 05:36: Sodium 136, Potassium 4.4, Chloride 101, Carbon Dioxide 30.0, Anion Gap 5, BUN 15, Creatinine 0.70, Estim Creat Clear Calc 57.88, Est GFR (MDRD) Af Amer 143, Est GFR (MDRD) Non-Af 118, BUN/Creatinine Ratio 21.6 H, Glucose 108 H, Calcium 8.6 Current Medications Acetaminophen (Tylenol) 650 mg PO Q6H PRN PRN PRN Reason: Non-cardiac pain (4-10/10) Hydrocodone Bitart/Acetaminophen ([place] 5mg-325mg) 1 - 2 tablet PO Q4H PRN PRN PRN Reason: Pain Score 4-10/10 Al Hydroxide/Mg Hydroxide (Mylanta Ii) 15 - 30 ml PO Q4H PRN PRN PRN Reason: INDIGESTION Albuterol Sulfate (Ventolin Aerosols) 2.5 mg INHALATION Q2H PRN PRN PRN Reason: dyspnea, wheezing Albuterol/Ipratropium (Duoneb) 3 ml INHALATION Q4HWA.RT [facility] Last Admin: 03/10/19 14:57 Dose: 3 ml Documented by: Amlodipine Besylate (Norvasc) 5 mg PO DAILY [facility] Last Admin: 03/10/19 08:13 Dose: 5 mg Documented by: Calcium/Vitamin D (Os-Eulogio 500mg + D) 1 tablet PO BIDCM [facility] Last Admin: 03/10/19 17:22 Dose: 1 tablet Documented by: Cholecalciferol (Vitamin D) 5,000 unit PO DAILY [facility] Last Admin: 03/10/19 08:08 Dose: 5,000 unit Documented by: Docusate Sodium (Colace) 100 mg PO BID [facility] Last Admin: 03/10/19 08:08 Dose: 100 mg Documented by: Dronabinol (Marinol) 2.5 mg PO BID [facility] Last Admin: 03/10/19 08:16 Dose: 2.5 mg Documented by: Duloxetine HCl (Cymbalta) 60 mg PO DAILY [facility] Last Admin: 03/10/19 08:09 Dose: 60 mg Documented by: Enoxaparin Sodium (Lovenox) 40 mg SC DAILY [facility] Last Admin: 03/10/19 09:11 Dose: 40 mg Documented by: Glatiramer Acetate (Glatiramer Acetate) 40 mg SQ SUTUTH@1000 [facility] Last Admin: 03/10/19 09:11 Dose: 40 mg Documented by: Glucagon () 1 mg IM .X1 PRN PRN Reason: Hypoglycemia Guaifenesin (Robitussin) 20 ml PO Q4H PRN PRN PRN Reason: COUGH Guaifenesin (Mucinex) 600 mg PO BID [facility] Last Admin: 03/10/19 08:12 Dose: 600 mg Documented by: Hydralazine HCl (Apresoline Iv) 10 mg IV Q4H PRN PRN PRN Reason: SBP > 160 Sodium Chloride () 250 mls @ 15 mls/hr IV .[id number] PRN PRN Reason: Saline Flush Sodium Chloride () 250 mls @ 15 mls/hr IV .[id number] PRN PRN Reason: Additional IVPB Infusion Sodium Chloride () 1,000 mls @ 100 mls/hr IV .Q10H [facility] Last Infusion: 03/10/19 17:25 Dose: 0 mls/hr Documented by: Dextrose (Dextrose 10%-Water) 250 mls @ 999 mls/hr IV .Q16M PRN; Protocol PRN Reason: HYPOGLYCEMIA Ampicillin Sodium/Sulbactam (Sodium 3 gm/ Sodium Chloride) 112 mls @ 150 mls/hr IV Q6 [facility] Last Admin: 03/10/19 17:24 Dose: 150 mls/hr Documented by: Losartan Potassium (Cozaar) 100 mg PO DAILY [facility] Last Admin: 03/10/19 08:11 Dose: 100 mg Documented by: Magnesium Hydroxide (Milk Of Magnesia) 30 ml PO DAILY PRN PRN Reason: Constipation Melatonin (Melatonin) 3 mg PO QHS PRN PRN PRN Reason: INSOMNIA Methylprednisolone (Solu-Medrol) 40 mg IV Q8 [facility] Last Admin: 03/10/19 13:13 Dose: 40 mg Documented by: Morphine Sulfate () 1 - 2 mg IV Q4H PRN PRN PRN Reason: Pain Score 1-10/10 Multivitamins (Allbee W/C Caplet, Thera B Comp/C) [facility] Admin: 03/10/19 08:06 Dose: 1 capsule Documented by: Multivitamins/Minerals (Multivitamin With Minerals) 1 tablet PO QHS [facility] Last Admin: 03/09/19 22:00 Dose: 1 tablet Documented by: Ondansetron HCl (Zofran) 4 mg IV Q8H PRN PRN PRN Reason: NAUSEA/VOMITING Oxcarbazepine (Trileptal) 300 mg PO 0600,1200,1800 [facility] Last Admin: 03/10/19 17:23 Dose: 300 mg Documented by: Pantoprazole Sodium (Protonix) 40 mg PO DAILY [facility] Last Admin: 03/10/19 08:12 Dose: 40 mg Documented by: Polyethylene Glycol (Miralax) 17 gm PO DAILY [facility] Last Admin: 03/10/19 09:11 Dose: 17 gm Documented by: Sodium Chloride () 10 - 40 ml IV UD PRN PRN Reason: SALINE FLUSH Theophylline (Torsten-24) 100 mg PO DAILY [facility] Last Admin: 03/10/19 08:13 Dose: 100 mg Documented by: Medical Necessity - Tobacco Use Smoking Status: Former smoker Tobacco Use: Non-smoker Assessment/Plan All Active Problems (Last Reviewed 12/26/19 @ 10:01 by Greer Don) Pneumonia (Acute) Sepsis (Acute) Acute respiratory failure (Acute) COPD exacerbation (Acute) #1 acute sepsis secondary to suspected aspiration pneumonia-continue present antibiotic coverage #2 right lower lobe pneumonia-suspected to be secondary to aspiration pneumonia-continue present antibiotic coverage #3 COPD exacerbation-continue present treatment #4 hypoxia secondary to right lower lobe pneumonia and COPD-continue to wean oxygen if possible #5 multiple sclerosis #6 generalized debility secondary to multiple sclerosis and multiple medical problems-PT and OT are seeing patient 7 oropharyngeal dysphagia-speech therapy is seeing patient Code Visit Inpatient E&M: 55609 Subs Hosp L2
[2019-03-10] MEDS: 0.9% Saline Lock 10 ML Syringe IV (22:20)
[2019-03-11] VITALS (9 sets, daily range): BP systolic 145–162; BP diastolic 73–100; PULSE 82–105; RESP 20–22; TEMP 36.4–36.9; O2SAT 85–96
--- NOTE | 2019-03-11 05:55 | RAD_ITS ---
STUDY: X-RAY CHEST REASON FOR EXAM: Male, 74 years old. PNEUMONIA, COUGH, COPD TECHNIQUE: AP upright portable view. COMPARISON: 03/09/2019. FINDINGS: Mild pulmonary hyperinflation. Asymmetric bibasilar fibrosis, right greater than left. Blunting of the right costophrenic sulcus may be changes due to right pleural fluid and/or pleural thickening. Normal size heart. Normal mediastinum and rodriguez. Normal visualized pulmonary arteries. Normal visualized aortic arch and descending thoracic aorta. Normal visualized thoracic spine. Normal visualized ribs, clavicles, and shoulders. There is no demonstrated abnormality of the visualized soft tissue structures of the upper abdomen. RAD/Chest 1 View (Portable) IMPRESSION: 1. COPD with asymmetric bibasilar fibrosis, right greater than left. 2. Right pleural thickening and/or right pleural fluid blunting the right costophrenic sulcus. 3. No significant interval change when compared to 03/09/2019. Electronically Signed: Jono Vásquez MD at 10:19 EST , Service support ,
[2019-03-11] MEDS: OXcarbazepine 300 MG Tablet PO ×3 (06:19→17:38)
[2019-03-11] MEDS: 0.9% Normal Saline 1,000 ML 75 ML IV ×2 (06:20→22:28)
[2019-03-11] MEDS: 0.9% Saline Lock 10 ML Syringe IV (06:21)
[2019-03-11] MEDS: Ipratropium/Albuterol Sulfate 3 ML AMPUL.NEB INHALATION ×4 (07:23→18:33)
[2019-03-11] MEDS: THEOPHYLLINE ANHYDROUS 100 MG CAP.ER.24H PO (08:58)
[2019-03-11] MEDS: Dronabinol 2.5 MG Capsule PO ×2 (08:58→19:52)
[2019-03-11] MEDS: Losartan Potassium 100 MG Tablet PO (08:59)
[2019-03-11] MEDS: amLODIPine 5 MG Tablet PO (08:59)
[2019-03-11] MEDS: DULoxetine Hcl 60 MG Capsule PO (08:59)
[2019-03-11] MEDS: guaiFENesin 600 MG Tablet PO ×2 (08:59→19:52)
[2019-03-11] MEDS: DALFAMPRIDINE 10 MG TAB.ER.12H PO ×2 (08:59→19:53)
[2019-03-11] MEDS: Docusate Sodium 100 MG Capsule PO ×2 (08:59→19:53)
[2019-03-11] MEDS: Polyethylene Glycol 3350 17 GM PACKET PO (08:59)
[2019-03-11] MEDS: Pantoprazole Sodium 40 MG Tablet PO (09:00)
[2019-03-11] MEDS: Enoxaparin 40 MG/0.4 ML Syringe SC (09:21)
--- NOTE | 2019-03-11 15:42 | CASEMGMT ---
RN CM in to talk with patient regarding resumption of HHC at discharge. Patient requested RN CM speak with . RN CM called and discussed HHC and possible need for oxygen at discharge. would like [facility] HHC resumed at discharge. Discussed possible need for home oxygen. declined oxygen at discharge and would like to see how patient does at home prior to ordering oxygen and will get order through PCP. [facility] notified of resumption for therapy at discharge.
--- NOTE | 2019-03-11 18:25 | PN_ITS ---
Patient Problems: Active and Suspected Problems (Last Reviewed 03/03/19 @ 10:01 by Greer Don) Pneumonia (Acute) Sepsis (Acute) COPD exacerbation (Acute) Subjective: Patient was seen and examined today, I had a lengthy discussion with his , I think it would be beneficial if the patient was able to have portable suction at home and if he qualifies for it, home oxygen. has agreed for this to be set up. I gave the patient Leda for today due to his history of iron deficiency anemia, I will give him another dose tomorrow. I obtained a chest x- ray on the patient today, it is not read out as showing a definite pneumonia, patient had a CAT scan in 2017 of the chest which showed areas of bronchiectasis on the right, emphysematous changes, and chronic scarring of both lungs. Patient also had mild aneurysmal dilatation of the ascending thoracic aorta with maximal diameter of 4.1 cm. I went over this finding with the patient and the patient's . Patient remains afebrile at this time. - Physical Exam Vitals/I&O's: Vital Signs Temp Pulse Resp BP Pulse Ox 98 F 89 20 H 162/100 H 95 03/11/19 15:33 03/11/19 15:33 03/11/19 15:33 03/11/19 15:33 03/11/19 15:33 Oxygen Flow Rate (L/min) 2 Oxygen Delivery Method Nasal Cannula Weight: 62.2 kg Body Mass Index (BMI) 20.2 Intake and Output for Last 24 Hours 03/09/19 03/10/19 03/11/19 23:59 23:59 23:59 Intake Total 1347.5 / 1467.5 3604.00 / 3704.00 2595.50 / 2595.50 Output Total 2425 / 3125 3450 / 3450 Balance 1347.5 / 1267.5 1179.00 / 579.00 -854.50 / -854.50 General: Alert, Oriented x3, Cooperative, No apparent distress, Well developed HEENT: Atraumatic, PERRLA, EOMI, Normocephalic Oral: Moist Mucosa Neck: Supple, Trachea Midline, Thyroid Normal Size and Texture Lungs: Normal air movement, No wheeze, No rales, Rhonchi - Scattered expiratory rhonchi are noted bilaterally Cardiovascular: Regular rate, Regular Rhythm, Normal S1, Normal S2, No murmurs, No Ectopic Activity, No rub noted Abdomen: Bowel Sounds Present, Soft, Non Tender, Non-Distended Extremities: No clubbing, No cyanosis, No edema, Capillary Refill Less than 3 Seconds Skin: No rashes, No breakdown Musculoskeletal: Muscle Wasting - Generalized muscle wasting of the lower extremities in particular is noted Neurological: Cranial nerves II-XII grossly intact, Neuro grossly intact, Sensory exam intact to light touch and pain Psych/Mental Status: Normal Affect, Appropriate, Alert and oriented to time, place, person, mood and affect Microbiology Past 72 Hours 03/09/19 14:50 Blood Culture (Wb) - Anticubital Left Blood Culture - Preliminary No growth in 48 hours. 03/09/19 13:35 Blood Culture (Wb) - Anticubital Right Blood Culture - Preliminary No growth in 48 hours. 03/10/19 13:15 Sputum, Expectorated/Coughed Gram Stain - Final 03/10/19 13:15 Sputum, Expectorated/Coughed Respiratory Culture - Preliminary Appears to be normal respiratory rhonda. Further studies to follow. 03/09/19 17:35 Mucosa - Nasopharyngeal Respiratory Panel (PCR) - Final 03/09/19 16:00 Urine, Clean Catch Streptococcus pneumoniae Antigen (M - Final 03/09/19 16:00 Urine, Clean Catch Legionella Antigen - Final Current Medications Acetaminophen (Tylenol) 650 mg PO Q6H PRN PRN PRN Reason: Non-cardiac pain (4-10/10) Al Hydroxide/Mg Hydroxide (Mylanta Ii) 15 - 30 ml PO Q4H PRN PRN PRN Reason: INDIGESTION Albuterol Sulfate (Ventolin Aerosols) 2.5 mg INHALATION Q2H PRN PRN PRN Reason: dyspnea, wheezing Albuterol/Ipratropium (Duoneb) 3 ml INHALATION Q4HWA.RT [facility] Last Admin: 03/11/19 14:22 Dose: 3 ml Documented by: Amlodipine Besylate (Norvasc) 5 mg PO DAILY [facility] Last Admin: 03/11/19 08:59 Dose: 5 mg Documented by: Docusate Sodium (Colace) 100 mg PO BID [facility] Last Admin: 03/11/19 08:59 Dose: 100 mg Documented by: Dronabinol (Marinol) 2.5 mg PO BID [facility] Last Admin: 03/11/19 08:58 Dose: 2.5 mg Documented by: Duloxetine HCl (Cymbalta) 60 mg PO DAILY [facility] Last Admin: 03/11/19 08:59 Dose: 60 mg Documented by: Enoxaparin Sodium (Lovenox) 40 mg SC DAILY [facility] Last Admin: 03/11/19 09:21 Dose: 40 mg Documented by: Glatiramer Acetate (Glatiramer Acetate) 40 mg SQ SUTUTH@1000 [facility] Last Admin: 03/10/19 09:11 Dose: 40 mg Documented by: Guaifenesin (Mucinex) 600 mg PO BID [facility] Last Admin: 03/11/19 08:59 Dose: 600 mg Documented by: Sodium Chloride () 250 mls @ 15 mls/hr IV .[id number] PRN PRN Reason: Saline Flush Sodium Chloride () 250 mls @ 15 mls/hr IV .[id number] PRN PRN Reason: Additional IVPB Infusion Sodium Chloride () 1,000 mls @ 75 mls/hr IV .[id number] [facility] Last Infusion: 03/11/19 12:39 Dose: 75 mls/hr Documented by: Ampicillin Sodium/Sulbactam (Sodium 3 gm/ Sodium Chloride) 112 mls @ 150 mls/hr IV Q6 [facility] Last Infusion: 03/11/19 18:24 Dose: Infused Documented by: Iron Sucrose 200 mg/ Sodium (Chloride) 110 mls @ 220 mls/hr IV X1 ONE Stop: 03/12/19 08:29 Losartan Potassium (Cozaar) 100 mg PO DAILY [facility] Last Admin: 03/11/19 08:59 Dose: 100 mg Documented by: Magnesium Hydroxide (Milk Of Magnesia) 30 ml PO DAILY PRN PRN Reason: Constipation Melatonin (Melatonin) 3 mg PO QHS PRN PRN PRN Reason: INSOMNIA Methylprednisolone (Solu-Medrol) 40 mg IV Q8 [facility] Last Admin: 03/11/19 13:28 Dose: 40 mg Documented by: Morphine Sulfate () 1 - 2 mg IV Q4H PRN PRN PRN Reason: Pain Score 1-10/10 Ondansetron HCl (Zofran) 4 mg IV Q8H PRN PRN PRN Reason: NAUSEA/VOMITING Oxcarbazepine (Trileptal) 300 mg PO 0600,1200,1800 [facility] Last Admin: 03/11/19 17:38 Dose: 300 mg Documented by: Pantoprazole Sodium (Protonix) 40 mg PO DAILY [facility] Last Admin: 03/11/19 09:00 Dose: 40 mg Documented by: Polyethylene Glycol (Miralax) 17 gm PO DAILY [facility] Last Admin: 03/11/19 08:59 Dose: 17 gm Documented by: Sodium Chloride () 10 - 40 ml IV UD PRN PRN Reason: SALINE FLUSH Last Admin: 03/11/19 06:21 Dose: 10 ml Documented by: Theophylline (Torsten-24) 100 mg PO DAILY [facility] Last Admin: 03/11/19 08:58 Dose: 100 mg Documented by: Medical Necessity - Tobacco Use Smoking Status: Former smoker Tobacco Use: Non-smoker Assessment/Plan All Active Problems (Last Reviewed 03/03/19 @ 10:01 by Greer Don) Pneumonia (Acute) Sepsis (Acute) Acute respiratory failure (Acute) COPD exacerbation (Acute) #1 acute sepsis secondary to suspected aspiration pneumonia-continue present antibiotic coverage #2 right lower lobe pneumonia-suspected to be secondary to aspiration pneumonia- this is not obvious on the patient's chest x-ray today but I feel clinically he does have aspiration pneumonia, continue present antibiotic coverage #3 COPD exacerbation-continue present treatment #4 hypoxia secondary to right lower lobe pneumonia and COPD-patient may need home O2 set up #5 multiple sclerosis #6 generalized debility secondary to multiple sclerosis and multiple medical problems-PT and OT are seeing patient #7 oropharyngeal dysphagia-I think it would be beneficial if the patient had suction at home #8 iron deficiency anemia-administer Venofer again tomorrow Code Visit Inpatient E&M: 41428 Subs Hosp L2
[2019-03-12] VITALS (9 sets, daily range): BP systolic 147–176; BP diastolic 92–100; PULSE 64–92; RESP 18–22; TEMP 36.6–37.2; O2SAT 84–96
[2019-03-12] MEDS: OXcarbazepine 300 MG Tablet PO ×2 (03:32→10:58)
[2019-03-12] MEDS: Ipratropium/Albuterol Sulfate 3 ML AMPUL.NEB INHALATION ×2 (06:56→10:27)
[2019-03-12] MEDS: 0.9% Saline Lock 10 ML Syringe IV (08:11)
--- NOTE | 2019-03-12 08:23 | CPS ---
patient refused vest at 0700 am this morning. nursing in room
--- NOTE | 2019-03-12 08:41 | PCM.DC ---
- Discharge Diagnoses Current Active Problems: Current Active and Chronic Problems (Last Reviewed 03/03/19 @ 10:01 by Greer Don) Pneumonia (Acute) Sepsis (Acute) COPD exacerbation (Acute) You will use the following diet at home:: No restrictions Your food should be the consistency of: Soft (bite-sized & easy to chew/swallow) Your liquids should be the consistency of: Regular/Thin Discharge Activity: Return to Normal Activity Weight Bearing Status: - - as tolerated Additional Instructions: recommend over the counter Iron (ferous sulfate) once or twice daily- 325 mg Allergies/Adverse Reactions: Allergies hydrochlorothiazide Allergy (Verified 03/09/19 12:58) Unknown lactose-reduced food [From Ensure] Adverse Reaction (Verified 03/09/19 17:07) Diarrhea nutritional supplement,special formulas [From Ensure] Adverse Reaction (Verified 03/09/19 17:07) Diarrhea Medications to take at Discharge Cholecalciferol (VIT D3) [Vitamin D3] 5,000 unit PO DAILY 02/20/14 coenzyme Q10 10 mg capsule 100 mg PO DAILY 02/19/17 lansoprazole 30 mg capsule,delayed release 30 mg PO DAILY 02/19/17 budesonide 0.5 mg/2 mL suspension for nebulization 0.5 mg INHALATION QDAY #60 ml 03/25/17 Albuterol Sulfate [Proventil Hfa] 1.25 gm IH Q4H PRN 03/25/18 Amlodipine [Norvasc] 5 mg PO DAILY 03/25/18 Duloxetine Hcl [Cymbalta] 60 mg PO DAILY 03/25/18 Losartan Potassium [Cozaar] 100 mg PO DAILY 03/25/18 Vitamin B Comp W-C [Allbee W/C Caplet, Thera B Comp/C] 1 cap PO DAILY 03/25/18 Dalfampridine [Ampyra] 10 mg PO BID@0900,2100 03/29/18 Dronabinol [Marinol] 2.5 mg PO 1000,1700 07/29/18 Multivitamin [Once Daily] 1 ea PO QHS 07/29/18 Calcium Citrate/Vitamin D3 [Calcium Citrate with D Tablet] 1 ea PO BID 07/30/18 Docusate Sodium [Colace] 250 mg PO DAILY 07/30/18 Theophylline Anhydrous [Torsten-24] 100 mg PO DAILY 07/30/18 Glatiramer Acetate 40 mg SQ SUTUTH@1000 10/02/18 Polyethylene Glycol 3350 [Miralax] 17 gm PO DAILY 10/04/18 Oxcarbazepine [Trileptal] 300 mg PO 0600,1200,1800 03/09/19 Albuterol Aerosols [Ventolin Aerosols] 2.5 mg INHALATION Q2H PRN PRN vial.neb. 03/12/19 Amox/Clavulanate Tablet [Augmentin Tablet] 875 mg PO BID #14 tab 03/12/19 Ipratropium/Albuterol Sulfate [Duoneb] 3 ml INHALATION 4X/DAY #180 ml 03/12/19 The following prescriptions were given: Amox/Clavulanate Tablet [Augmentin Tablet] 875 mg PO BID #14 tab Transmission Status: Pending to [facility]/pharmacy #[id number] Ipratropium/Albuterol Sulfate [Duoneb] 3 ml INHALATION 4X/DAY #180 ml Primary Care Physician: Mario Giraldo MD [Primary Care Provider] - Please follow up with your Primary Care Physician in: in one to two weeks Test Results: Test results from this visit will be discussed in further detail at your follow-up appointment, if applicable.
[2019-03-12] MEDS: Docusate Sodium 100 MG Capsule PO (08:45)
[2019-03-12] MEDS: DALFAMPRIDINE 10 MG TAB.ER.12H PO (08:45)
[2019-03-12] MEDS: guaiFENesin 600 MG Tablet PO (08:46)
[2019-03-12] MEDS: amLODIPine 5 MG Tablet PO (08:46)
[2019-03-12] MEDS: Enoxaparin 40 MG/0.4 ML Syringe SC (08:46)
[2019-03-12] MEDS: Pantoprazole Sodium 40 MG Tablet PO (08:47)
[2019-03-12] MEDS: Polyethylene Glycol 3350 17 GM PACKET PO (08:47)
[2019-03-12] MEDS: Losartan Potassium 100 MG Tablet PO (08:48)
[2019-03-12] MEDS: THEOPHYLLINE ANHYDROUS 100 MG CAP.ER.24H PO (08:48)
[2019-03-12] MEDS: DULoxetine Hcl 60 MG Capsule PO (08:49)
--- NOTE | 2019-03-12 09:03 | PCM.HOSP.N ---
Hospitalist Note Patient's pulse ox was checked this morning, patient is 84% on room air, he is 95% on 2 L-patient will require home oxygen, he is expected to wear it at rest and when ambulating.
--- NOTE | 2019-03-12 10:54 | CM.UR ---
Addendum entered by Pema Sosa 03/12/19 12:03: Received call back from Adin at [facility] [place] [facility] approximately 11am to discuss the oxygen referral. Faxed oxygen documentation at this time to [facility] [place]. Rolando Sosa RN, CCM Original Note: Spoke with Gloria at [facility] [place] to set up home o2. Rolando Sosa RN, CCM.
[2019-03-12] MEDS: Dronabinol 2.5 MG Capsule PO (10:56)
--- NOTE | 2019-03-12 15:07 | NURSING ---
Text sent to Dr. Roberson: called in after patient discharged stating the [facility] pharmacy told her the duoneb script did not have the correct code on it to be covered by medicare B, requesting a new script be sent to [facility].
--- NOTE | 2019-03-14 15:50 | PCM.DC.SUM ---
Discharge Date and Diagnosis Date of Admission: 03/09/19 Date of Discharge: 03/12/19 - Primary Discharge Diagnosis #1 acute sepsis secondary to suspected aspiration pneumonia #2 right lower lobe pneumonia-suspected to be secondary to aspiration pneumonia #3 COPD exacerbation #4 hypoxia secondary to right lower lobe pneumonia and COPD #5 multiple sclerosis #6 generalized debility secondary to multiple sclerosis and multiple medical problems #7 oropharyngeal dysphagia #8 iron deficiency anemia #9 moderate caloric and protein malnutrition - Secondary Discharge Diagnosis Chronic Problems (Last Reviewed 03/03/19 @ 10:01 by Greer Don) 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) Ulcerative colitis (Chronic) Seizure disorder (Chronic) Depression (Chronic) Physical debility (Chronic) Hypertension (Chronic) COPD (chronic obstructive pulmonary disease) (Chronic) Multiple sclerosis (Chronic) Dysphagia (Chronic) Anemia (Chronic) BPH (benign prostatic hypertrophy) (Chronic) Vitamin D deficiency (Chronic) GERD (gastroesophageal reflux disease) (Chronic) Ulcerative esophagitis (Chronic) Gout (Chronic) Hospital Course and Treatment Operations: None Procedures: None Summary of Care Provided: The patient is a 74 year old M who was seen in the emergency room at [facility] after being brought in for evaluation of shortness of breath. Patient has a history of COPD but he is not on home O2, he has a history of multiple sclerosis. Evaluation in the emergency room included an EKG which showed the patient to be in sinus rhythm with no acute ischemic changes, chest x-ray was obtained which showed a right lower lobe infiltrate, patient's white blood cell count was elevated at 13.5, blood chemistry was unremarkable. Patient was admitted to [place] [address], placed on IV antibiotics, seen in consultation by PT OT and speech therapy. Patient refused further evaluation from speech therapy (for instance a modified barium swallow) and the patient made slow progress during his hospitalization. Just prior to discharge, it was noted that the patient would qualify for home O2, initially the patient's did not want home O2 but then relented and home oxygen was set up for the patient. In addition, home suction was set up for the patient also. On 03/12/2019, patient was seen and evaluated and felt to be in stable condition for discharge home: On examination he appeared frail. Vital signs as documented. Skin warm and dry and without overt rashes. Neck without JVD. Lungs clear. Heart exam notable for regular rhythm, normal sounds and absence of murmurs, rubs or gallops. Abdomen unremarkable and without evidence of organomegaly, masses, or abdominal aortic enlargement. Extremities nonedematous. Neuro: Cranial nerves II through XII are grossly intact, no focal motor deficits were noted, sensation to light touch and pinprick intact. Psych: Patient is alert and oriented x3, he does not appear anxious or depressed - Physical Exam Vitals/I&O's: Vital Signs Temp Pulse Resp BP Pulse Ox 97.8 F 64 20 H 147/92 H 95 03/12/19 12:20 03/12/19 12:20 03/12/19 12:20 03/12/19 12:20 03/12/19 12:20 Oxygen Flow Rate (L/min) 2 Oxygen Delivery Method Nasal Cannula Weight: 62.2 kg Body Mass Index (BMI) 20.2 Intake and Output for Last 24 Hours 03/12/19 03/13/19 03/14/19 23:59 23:59 23:59 Intake Total 1114.00 / 1114.00 Output Total 1250 / 1250 Balance -136.00 / -136.00 Microbiology Past 72 Hours 03/09/19 14:50 Blood Culture (Wb) - Anticubital Left Blood Culture - Final No growth in 5 days. 03/09/19 13:35 Blood Culture (Wb) - Anticubital Right Blood Culture - Final No growth in 5 days. 03/10/19 13:15 Sputum, Expectorated/Coughed Gram Stain - Final 03/10/19 13:15 Sputum, Expectorated/Coughed Respiratory Culture - Final Presumptive C albicans Discharge Activity: Return to Normal Activity Weight Bearing Status: - - as tolerated Home Medications: Medications to take at Discharge Cholecalciferol (VIT D3) [Vitamin D3] 5,000 unit PO DAILY 02/20/14 coenzyme Q10 10 mg capsule 100 mg PO DAILY 02/19/17 lansoprazole 30 mg capsule,delayed release 30 mg PO DAILY 02/19/17 budesonide 0.5 mg/2 mL suspension for nebulization 0.5 mg INHALATION QDAY #60 ml 03/25/17 Albuterol Sulfate [Proventil Hfa] 1.25 gm IH Q4H PRN 03/25/18 Amlodipine [Norvasc] 5 mg PO DAILY 03/25/18 Duloxetine Hcl [Cymbalta] 60 mg PO DAILY 03/25/18 Losartan Potassium [Cozaar] 100 mg PO DAILY 03/25/18 Vitamin B Comp W-C [Allbee W/C Caplet, Thera B Comp/C] 1 cap PO DAILY 03/25/18 Dalfampridine [Ampyra] 10 mg PO BID@0900,2100 03/29/18 Dronabinol [Marinol] 2.5 mg PO 1000,1700 07/29/18 Multivitamin [Once Daily] 1 ea PO QHS 07/29/18 Calcium Citrate/Vitamin D3 [Calcium Citrate with D Tablet] 1 ea PO BID 07/30/18 Docusate Sodium [Colace] 250 mg PO DAILY 07/30/18 Theophylline Anhydrous [Torsten-24] 100 mg PO DAILY 07/30/18 Glatiramer Acetate 40 mg SQ SUTUTH@1000 10/02/18 Polyethylene Glycol 3350 [Miralax] 17 gm PO DAILY 10/04/18 Oxcarbazepine [Trileptal] 300 mg PO 0600,1200,1800 03/09/19 Albuterol Aerosols [Ventolin Aerosols] 2.5 mg INHALATION Q2H PRN PRN vial.neb. 03/12/19 Amox/Clavulanate Tablet [Augmentin Tablet] 875 mg PO BID #14 tab 03/12/19 Ipratropium/Albuterol Sulfate [Duoneb] 3 ml INHALATION 4X/DAY #120 ampul.neb 03/12/19 Ipratropium/Albuterol Sulfate [Duoneb] 3 ml INHALATION 4X/DAY #180 ml 03/12/19 Following Prescrptions Were Given to Patient: Amox/Clavulanate Tablet [Augmentin Tablet] 875 mg PO BID #14 tab Transmission Status: Received by [facility]/pharmacy #[id number] Ipratropium/Albuterol Sulfate [Duoneb] 3 ml INHALATION 4X/DAY #180 ml Ipratropium/Albuterol Sulfate [Duoneb] 3 ml INHALATION 4X/DAY #120 ampul.neb Transmission Status: Received by [facility]/pharmacy #[id number] Primary Care Physician: Mario Giraldo MD [Primary Care Provider] - Please follow up with your Primary Care Physician in: in one to two weeks Disposition: Home Minutes spent on discharge:: 34 Patient Condition:: Stable Medical Necessity - Tobacco Use Smoking Status: Former smoker Tobacco Use: Non-smoker Meaningful Use Info Meaningful Use Diagnoses (Choose all that apply): None applicable Code Visit Inpatient E&M: 38749 Disch Hosp
== END 2019-03-12 12:46 | disposition home or self-care (01) | DRG 871 ==
LOC: ED 14:51 → MS3 15:14
PROVIDERS: Admitting Provider Family Medicine; Emergency Provider Emergency Medicine; Family Provider Family Medicine; PCP Family Medicine; Referring Provider Family Medicine; Visit Provider Internal Medicine
DX: A41.9 Sepsis, unspecified organism (principal); J69.0 Pneumonitis due to inhalation of food and vomit; J44.0 Chronic obstructive pulmonary disease with (acute) lower respiratory infection; J44.1 Chronic obstructive pulmonary disease with (acute) exacerbation; E44.0 Moderate protein-calorie malnutrition; K51.90 Ulcerative colitis, unspecified, without complications; K22.10 Ulcer of esophagus without bleeding; R09.02 Hypoxemia; G35 Multiple sclerosis; R13.12 Dysphagia, oropharyngeal phase; D50.9 Iron deficiency anemia, unspecified; G40.909 Epilepsy, unspecified, not intractable, without status epilepticus; F32.9 Major depressive disorder, single episode, unspecified; I10 Essential (primary) hypertension; N40.0 Benign prostatic hyperplasia without lower urinary tract symptoms; E55.9 Vitamin D deficiency, unspecified; K21.9 Gastro-esophageal reflux disease without esophagitis; M1A.9XX0 Chronic gout, unspecified, without tophus (tophi); F41.9 Anxiety disorder, unspecified; E78.5 Hyperlipidemia, unspecified; Z79.899 Other long term (current) drug therapy; Z87.891 Personal history of nicotine dependence
CPT/HCPCS: 36415; 71045; 80048; 83605; 83735; 84484; 85025; 87040; 87070; 87106; 87205; 87449; 87633; 92610; 93005; 94640; 94667; 94668; 97110; 97162; 97166; 97530; 97535; 97802; 99251; 99285; J1756; J7030; J7050; A4216; G0463; J0295

== ENCOUNTER → 2019-04-06 | Outpatient (CLI) | payer MEDICARE, OTHER, SELFPAY ==
[2019-03-09 16:24] VITALS: BMI 20.2
[2019-04-06 20:33] LABS: Absolute Lymphocyte Count 1.14 X10^3/uL (0.83-4.51); Absolute Neutrophil Count 7.1 X10^3/uL (2.0-7.7); Basophil# 0.06 X10^3/uL; Basophil% 0.6 % (0-1); Eosinophil# 0.25 X10^3/uL; Eosinophils% 2.6 % (0-5); Hematocrit 41.1 % (40-54); Hemoglobin 12.8 g/dL (13.0-16.5); Lymphocyte # 1.14 X10^3/ul (4.0); Lymphocyte % 12.1 % (19-41); Mean Corp Hgb Conc 31.1 g/dL (32-36); Mean Corpuscular Hgb 27.3 pg (27.0-32.0); Mean Corpuscular Volume 87.6 fL (80-94); Monocyte# 0.91 X10^3/uL; Monocyte% 9.6 % (0-10); NRBC Flagged by Analyzer 0.2 % (0-5); Neutrophil # 7.08 X10^3/uL (2.7-7.7); Neutrophil % 74.9 % (47-70); POSITIVE MORPHOLOGY YES; Platelet Count 237 K/mm3 (150-450); RBC Distribution Width CV 20.1 % (11.6-14.6); RBC Distribution Width SD 63.3 fl (35.1-43.9); Red Blood Count 4.69 M/mm3 (4.6-6.2); White Blood Count 9.5 K/mm3 (4.4-11.0)
[2019-04-06 20:37] LABS: Differential Indicated SCAN CRITERIA MET
[2019-04-06 20:44] LABS: AST(SGOT) 22 U/L (15-37); Alanine Aminotransfer ALT/SGPT 36 U/L (16-61); Albumin, Serum 3.7 g/dL (3.2-5.0); Alkaline Phosphatase 94 U/L (45-117); Anion Gap 4 (5-15); BUN 17 mg/dL (7-18); BUN/Creat Ratio 22.3 RATIO (10-20); Calcium,Total 9.6 mg/dL (8.5-10.1); Chloride 97 mmol/L (98-107); Creatinine, Serum 0.76 mg/dL (0.70-1.30); EST Glomerular Filtration Rate 106 mL/min (>60); Est Glom Filt Rate - Afr Amer 129 mL/min (>60); Ferritin 72 ng/mL (26-388); Globulin 3.8 g/dL (2.2-4.2); Glucose 82 mg/dL (74-106); Iron 42 ug/dL (65-175); Iron Binding Capacity,Total 282 ug/dL (250-450); Magnesium 2.3 mg/dL (1.6-2.6); PERCENT IRON SATURATION 14.9 % (15.0-55.0); Potassium 4.3 mmol/L (3.5-5.1); Prealbumin 20.6 mg/dL (20.0-40.0); Protein, Total 7.5 g/dL (6.4-8.2); Sodium Level 136 mmol/L (136-145); Thyroid Stim Hormone (TSH) 2.74 uIU/mL (0.358-3.74)
[2019-04-06 20:56] LABS: Vitamin B12 1163 pg/mL (211-911)
[2019-04-06 20:57] LABS: Anisocytosis 1+; Differential Comment SCANNED
[2019-04-09 17:43] LABS: Trileptal-Oxcarbazepine 20 ug/mL (10-35)
== END | disposition home or self-care (01) ==
PROVIDERS: PCP Family Medicine; Referring Provider Family Medicine; Visit Provider Family Medicine
DX: J44.9 Chronic obstructive pulmonary disease, unspecified (principal); M62.81 Muscle weakness (generalized); D64.9 Anemia, unspecified; G40.909 Epilepsy, unspecified, not intractable, without status epilepticus
CPT/HCPCS: 80053; 82542; 82607; 82728; 83540; 83550; 83735; 84134; 84443; 85025

== ENCOUNTER → 2019-07-28 17:54 | Outpatient (CLI) | payer MEDICARE, OTHER, SELFPAY ==
[2019-06-27 10:32] VITALS: BMI 20.2
[2019-07-28 18:00] LABS: Absolute Lymphocyte Count 1.13 X10^3/uL (0.83-4.51); Absolute Neutrophil Count 7.9 X10^3/uL (2.0-7.7); Basophil# 0.05 X10^3/uL; Basophil% 0.5 % (0-1); Eosinophils% 2.9 % (0-5); Hematocrit 37.9 % (40-54); Hemoglobin 11.9 g/dL (13.0-16.5); Lymphocyte # 1.13 X10^3/ul (4.0); Mean Corp Hgb Conc 31.4 g/dL (32-36); Mean Corpuscular Hgb 30.7 pg (27.0-32.0); Mean Corpuscular Volume 97.9 fL (80-94); Monocyte# 0.83 X10^3/uL; Monocyte% 8.1 % (0-10); NRBC Flagged by Analyzer 0.4 % (0-5); Neutrophil # 7.89 X10^3/uL (2.7-7.7); Neutrophil % 77.2 % (47-70); Platelet Count 203 K/mm3 (150-450); RBC Distribution Width CV 16.4 % (11.6-14.6); RBC Distribution Width SD 57.8 fl (35.1-43.9); Red Blood Count 3.87 M/mm3 (4.6-6.2); White Blood Count 10.2 K/mm3 (4.4-11.0)
[2019-07-28 18:08] LABS: Erythrocyte Sedimentation Rate 22 mm/hr (0-20)
[2019-07-28 18:39] LABS: Vitamin D,25 Hydroxy 104.6 ng/mL
[2019-07-28 18:40] LABS: ALB/GLOB Ratio 0.9 RATIO (0.9-2.4); AST(SGOT) 18 U/L (15-37); Alanine Aminotransfer ALT/SGPT 32 U/L (16-61); Albumin, Serum 3.5 g/dL (3.2-5.0); Alkaline Phosphatase 105 U/L (45-117); Anion Gap 4 (5-15); BUN 23 mg/dL (7-18); BUN/Creat Ratio 28.7 RATIO (10-20); Calcium,Total 9.4 mg/dL (8.5-10.1); Chloride 110 mmol/L (98-107); EST Glomerular Filtration Rate 100 mL/min (>60); Est Glom Filt Rate - Afr Amer 122 mL/min (>60); Ferritin 72 ng/mL (26-388); Globulin 3.8 g/dL (2.2-4.2); Glucose 96 mg/dL (74-106); Iron 77 ug/dL (65-175); Iron Binding Capacity,Total 249 ug/dL (250-450); Potassium 4.3 mmol/L (3.5-5.1); Protein, Total 7.3 g/dL (6.4-8.2); Sodium Level 143 mmol/L (136-145)
== END ==
PROVIDERS: PCP Family Medicine; Referring Provider Family Medicine; Visit Provider Family Medicine
DX: M62.81 Muscle weakness (generalized) (principal); G35 Multiple sclerosis; E61.1 Iron deficiency
CPT/HCPCS: 80053; 82306; 82728; 83540; 83550; 85025; 85652

== ENCOUNTER → 2019-10-27 | Outpatient (CLI) | payer MEDICARE, OTHER, SELFPAY ==
[2019-10-24 15:19] VITALS: BMI 20.2
[2019-10-27 19:49] LABS: Ferritin 62 ng/mL (26-388); Iron 67 ug/dL (65-175); Iron Binding Capacity,Total 259 ug/dL (250-450)
[2019-10-28 07:23] LABS: Absolute Lymphocyte Count 1.17 X10^3/uL (0.83-4.51); Absolute Neutrophil Count 8.9 X10^3/uL (2.0-7.7); Basophil% 0.9 % (0-1); Eosinophil# 0.41 X10^3/uL; Eosinophils% 3.5 % (0-5); Hemoglobin 11.4 g/dL (13.0-16.5); Lymphocyte # 1.17 X10^3/ul (4.0); Lymphocyte % 10.1 % (19-41); Mean Corp Hgb Conc 30.8 g/dL (32-36); Mean Corpuscular Hgb 31.5 pg (27.0-32.0); Mean Corpuscular Volume 102.2 fL (80-94); Monocyte# 1.05 X10^3/uL; NRBC Flagged by Analyzer 0.3 % (0-5); Neutrophil # 8.88 X10^3/uL (2.7-7.7); Neutrophil % 76.3 % (47-70); Platelet Count 232 K/mm3 (150-450); RBC Distribution Width CV 15.9 % (11.6-14.6); RBC Distribution Width SD 60.2 fl (35.1-43.9); RET-HE 33.4 pg (30-35); Red Blood Count 3.62 M/mm3 (4.6-6.2); Reticulocyte Count 1.17 % (0.5-1.5); White Blood Count 11.6 K/mm3 (4.4-11.0)
[2019-10-28 07:36] LABS: ALB/GLOB Ratio 1.1 RATIO (0.9-2.4); AST(SGOT) 16 U/L (15-37); Alanine Aminotransfer ALT/SGPT 29 U/L (16-61); Albumin, Serum 3.6 g/dL (3.2-5.0); Alkaline Phosphatase 95 U/L (45-117); Anion Gap 0 (5-15); BUN 24 mg/dL (7-18); BUN/Creat Ratio 25.2 RATIO (10-20); Calcium,Total 8.8 mg/dL (8.5-10.1); Chloride 109 mmol/L (98-107); Creatinine, Serum 0.95 mg/dL (0.70-1.30); EST Glomerular Filtration Rate 82 mL/min (>60); Est Glom Filt Rate - Afr Amer 99 mL/min (>60); Globulin 3.4 g/dL (2.2-4.2); Glucose 89 mg/dL (74-106); Potassium 4.9 mmol/L (3.5-5.1); Prealbumin 23.4 mg/dL (20.0-40.0); Sodium Level 141 mmol/L (136-145)
[2019-10-28 11:03] LABS: Vitamin D,25 Hydroxy 78.5 ng/mL
== END | disposition home or self-care (01) ==
PROVIDERS: PCP Family Medicine; Referring Provider Family Medicine; Visit Provider Family Medicine
DX: G35 Multiple sclerosis (principal); D64.9 Anemia, unspecified; E55.9 Vitamin D deficiency, unspecified; M10.9 Gout, unspecified
CPT/HCPCS: 80053; 82306; 82728; 83540; 83550; 83970; 84134; 84550; 85025; 85045

== ENCOUNTER → 2020-03-06 | Outpatient (CLI) | payer MEDICARE, OTHER, SELFPAY ==
[2019-10-24 15:19] VITALS: BMI 20.2
[2020-03-06 16:12] LABS: Color, Urine Yellow (Yellow); Glucose, Dipstick Normal (Normal); Ketone-Dipstick Negative (Negative); Leukocyte Esterase-Dipstick 500 /ul (Negative); Nitrite-Dipstick Positive (Negative); Occult Blood-Urine 150 /ul (Negative); Protein-Dipstick 100 mg/dl (Negative); Specific Gravity, Urine 1.015 (1.002-1.030); Urine Bilirubin Dipstick Negative (Negative); Urine Clarity Cloudy (Clear); Urine Urobilinogen Normal (Normal)
== END | disposition home or self-care (01) ==
LOC: LABSPEC 13:06
PROVIDERS: PCP Family Medicine; Referring Provider Family Medicine; Visit Provider Family Medicine
DX: R35.0 Frequency of micturition (principal)
CPT/HCPCS: 81002; 82043; 82570; 87086; 87088; 87186

== ENCOUNTER → 2020-03-19 | Outpatient (CLI) | payer MEDICARE, OTHER, SELFPAY ==
[2019-10-24 15:19] VITALS: BMI 20.2
== END | disposition home or self-care (01) ==
LOC: LABSPEC 09:23
PROVIDERS: PCP Family Medicine; Referring Provider Family Medicine; Visit Provider Family Medicine
DX: R35.0 Frequency of micturition (principal)
CPT/HCPCS: 87086

== ENCOUNTER 2020-05-24 11:54 | Inpatient (IN) | payer MEDICARE, OTHER, SELFPAY ==
[2019-10-24 15:19] VITALS: BMI 20.2
[2020-05-24] VITALS (8 sets, daily range): BP systolic 107–138; BP diastolic 55–78; PULSE 81–94; RESP 14–22; TEMP 36.4–36.6; O2SAT 95–100; BMI 17.9; BMI 18.0; BMI 17.1
--- NOTE | 2020-05-24 12:28 | EKG12_ITS ---
Test Reason : Blood Pressure : / mmHG Vent. Rate : 085 BPM Atrial Rate : 085 BPM P-R Int : 136 ms QRS Dur : 096 ms QT Int : 358 ms P-R-T Axes : 082 068 078 degrees QTc Int : 426 ms Normal sinus rhythm Normal ECG Confirmed by ASHELY GONSALZE, KODI ([id number]), design editor TATE WALLACE ([id number]) on 05/28/2020 10:26:20 AM Referred By: LAURA Confirmed By:KODI LUND MD
--- NOTE | 2020-05-24 12:29 | ED.VIS.GEN ---
History of Present Illness Chief Complaint: General Illness Informant: Family Narrative: Presenting for evaluation. Patient's caregiver states that he has been increasingly weak over the last 2 weeks. He has a home physician that comes to visit him and does occasional lab work. Patient has not seen him since the start of the symptoms. Patient's caregiver states that he is not getting much sleep because he states that he has to urinate frequently. She also states that sometimes he will get up to urinate and not urinate and then urinate in the bed. Patient states that he is having some rib pain from using the binder more frequently to get up to go to the bathroom. She states that his moist breathing is normal. He is not had a fever. He is not had any falls. Patient has lower extremity swelling which comes and goes and is chronic. Patient's caregiver states that from adjusting his leg his hip is now been hurting him and is not getting much sleep. - Past Medical History (1) Anemia Status: Chronic (2) BPH (benign prostatic hypertrophy) Status: Chronic (3) COPD (chronic obstructive pulmonary disease) Status: Chronic Past Medical History - Allergies and Home Meds Allergies/Adverse Reactions: Allergies hydrochlorothiazide Allergy (Verified 05/24/20 12:05) Unknown lactose-reduced food [From Ensure] Adverse Reaction (Verified 05/24/20 12:05) Diarrhea nutritional supplement,special formulas [From Ensure] Adverse Reaction (Verified 05/24/20 12:05) Diarrhea Primary Care Physician: Mario Giraldo MD [Primary Care Provider] - Prior records reviewed: Yes Past Medical History: - - Dysphagia, MS, COPD, hypertension, depression, GERD, gout Surgical History: noncontributory, - - PEG tube Smoking Status: Former smoker - Family History Maternal Family History: Family History (Last Reviewed 06/27/19 @ 10:18 by Greer Don) Mother Colon cancer Breast cancer Lung cancer Father CAD (coronary artery disease) Heart disease Family History: Reports: Cancer - 70's Paternal Family History: Family History (Last Reviewed 06/27/19 @ 10:18 by Greer Don) Mother Colon cancer Breast cancer Lung cancer Father CAD (coronary artery disease) Heart disease Family History: Reports: Heart Disease - age 70's Review of Systems General: Reports: Malaise. Denies: Chills, Fever Eyes: Denies: Visual changes - bilaterally, Diplopia ENT: Denies: Rhinorrhea, Sore throat Cardiovascular: Denies: Chest pain, Palpitations Respiratory: Reports: - - Bilateral rib pain. Denies: Dyspnea, Cough Genitourinary: Reports: Frequency. Denies: Hematuria Musculoskeletal: Denies: Myalgias, Arthralgias Skin: Denies: Rash, Abscess Neurological: Denies: Headache, Parasthesia, Numbness Psych: Denies: Depression, Anxiety Physical Exam Vital Signs/Narrative: Vital Signs Temp Pulse Resp BP Pulse Ox 05/24/20 11:57 97.6 F L 84 14 138/78 H 98 General: Cachectic, No Acute Distress Head: Normocephalic, Atraumatic Eyes: Perrl, EOMI ENT: Moist mucous membranes, No rhinorrhea Cardiovascular: Regular rate, Regular rhythm Respiratory: No distress, CTA bilaterally Abdomen: Soft, Nontender, Nondistended Back: Negative for: CVA tenderness, Spinal tenderness Extremities: Edema - Bilateral edema in the feet. No calf pain. Mild tenderness with range of motion of the right hip. No deformity of the right hip. Neurological: Alert, Cranial nerves II-XII grossly intact Diagnostic/Tx/Re-eval - Medical Decision Making 75-year-old male presenting with generalized weakness over the last couple of weeks. There is some concern for urinary tract infection. Patient has not been febrile. He has diminished p.o. intake. Rhythm at 85 bpm without signs of ischemic changes interpreted by myself. One-view portable chest x-ray shows no acute abnormality as interpreted by myself. Patient's lab work shows that he has a elevated leukocytosis at 27,000 and also with thrombocytosis of over 700. It looks like in the past has had elevated platelets but has been fairly normal recently. Patient's vital signs are stable and he is afebrile. He is alert and talking. Patient's GFR is normal however there is some prerenal azotemia present he was given IV fluids. Given patient's history of sepsis and a high leukocytosis patient will be pancultured prior to Rocephin given. Lactic acid was also ordered. After speaking with the hospitalist she request CT of the abdomen pelvis to ensure he does not have a pyelonephritis. This will be followed up on the floor. Patient stable on admission. Impression: 1. Leukocytosis 2. Thrombocytosis 3. UTI 4. Generalized weakness ED Disposition - Plan for ED Patient: Referrals: Mario Giraldo MD [Primary Care Provider] -
[2020-05-24 13:21] LABS: Absolute Neutrophil Count 23.5 X10^3/uL (2.0-7.7); Basophil# 0.05 X10^3/uL; Basophil% 0.2 % (0-1); Eosinophil# 0.01 X10^3/uL; Hematocrit 29.3 % (40-54); Hemoglobin 9.1 g/dL (13.0-16.5); Lymphocyte % 6.5 % (19-41); Mean Corp Hgb Conc 31.1 g/dL (32-36); Mean Corpuscular Hgb 28.8 pg (27.0-32.0); Mean Corpuscular Volume 92.7 fL (80-94); Mean Platelet Vol. 11.4 fl (6.2-12.0); Monocyte# 2.04 X10^3/uL; Monocyte% 7.3 % (0-10); NRBC Flagged by Analyzer 0 % (0-5); Neutrophil % 84.7 % (47-70); POSITIVE COUNT YES; POSITIVE DIFFERENTIAL YES; Platelet Count 781 K/mm3 (150-450); RBC Distribution Width CV 17.9 % (11.6-14.6); RBC Distribution Width SD 59.5 fl (35.1-43.9); Red Blood Count 3.16 M/mm3 (4.6-6.2); White Blood Count 27.8 K/mm3 (4.4-11.0)
[2020-05-24 13:44] LABS: ALB/GLOB Ratio 0.4 RATIO (0.9-2.4); AST(SGOT) 42 U/L (15-37); Alanine Aminotransfer ALT/SGPT 36 U/L (16-61); Albumin, Serum 2.1 g/dL (3.2-5.0); Alkaline Phosphatase 156 U/L (45-117); Anion Gap 3 (5-15); BUN 37 mg/dL (7-18); BUN/Creat Ratio 37.2 RATIO (10-20); Calcium,Total 9.5 mg/dL (8.5-10.1); Chloride 100 mmol/L (98-107); EST Glomerular Filtration Rate 78 mL/min (>60); Est Glom Filt Rate - Afr Amer 94 mL/min (>60); Estimated Creatinine Clearance 56.65 ml/min; Globulin 5.4 g/dL (2.2-4.2); Glucose 136 mg/dL (74-106); Potassium 4.8 mmol/L (3.5-5.1); Protein, Total 7.5 g/dL (6.4-8.2); Sodium Level 138 mmol/L (136-145)
--- NOTE | 2020-05-24 13:45 | RAD_ITS ---
STUDY: X-RAY CHEST REASON FOR EXAM: Male, 75 years old. Rib pain TECHNIQUE: Single AP portable view of the chest. COMPARISON: Comparison is made with prior study dated 03/11/2019. FINDINGS: Hyperinflation. Stable mild increased markings at the lung bases suggestive of scarring or prominent on the right side. There is no demonstrated pleural abnormality. Normal size heart. Normal mediastinum and rodriguez. There is prominence of the pulmonary hilar arteries without peripheral pulmonary vascular congestion, suggesting pulmonary hypertension. Normal visualized aortic arch and descending thoracic aorta. There are degenerative changes of the visualized thoracic spine. Normal visualized ribs, clavicles, and shoulders. There is no demonstrated abnormality of the visualized soft tissue structures of the upper abdomen. RAD/Chest 1 View (Portable) IMPRESSION: Stable examination. Electronically Signed: Bob Jolley MD at 14:00 EDT , Service support ,
[2020-05-24 13:47] LABS: Differential Indicated SCAN CRITERIA MET
[2020-05-24 13:49] LABS: Platelet Estimate MKD INC (ADEQ)
[2020-05-24 14:20] LABS: Mucous, Urine 0 SEEN /hpf (<or=2+)
[2020-05-24 14:21] LABS: Color, Urine Yellow (Yellow); Glucose, Dipstick Normal (Normal); Ketone-Dipstick Negative (Negative); Leukocyte Esterase-Dipstick 500 /ul (Negative); Nitrite-Dipstick Positive (Negative); Occult Blood-Urine 150 /ul (Negative); Protein-Dipstick 30 mg/dl (Negative); Urine Bilirubin Dipstick Negative (Negative); Urine Clarity Sl. Cloudy (Clear); Urine Urobilinogen Normal (Normal); Urine pH 6.5 (5.0 - 8.0)
[2020-05-24 14:27] LABS: Bacteria 3+ /hpf (None Seen); Red Blood Cells-Urine 0-5 SEEN /hpf (0-5); Squamous Epithelial Cells - UA 0-5 SEEN /hpf (0-5); White Blood Cells 25-50 SEEN /hpf (0-5)
--- NOTE | 2020-05-24 15:00 | CT_ITS ---
STUDY: CT ABDOMEN AND PELVIS WITHOUT CONTRAST REASON FOR EXAM: Male, 75 years old. Weakness. History of multiple sclerosis. RADIATION DOSAGE (If Supplied By Facility): CTDIvol = ( 8.05 ) mGy, DLP = ( 349.96 ) mGycm TECHNIQUE: Transaxial images were obtained from the dome of the diaphragm to the symphysis pubis without oral contrast, and without intravenous contrast. Sagittal and coronal images were reconstructed. Individualized dose optimization techniques were used for this CT. COMPARISON: None. FINDINGS: Infiltration in the right lower lobe. Mild increased markings at the left lung base. Coronary artery calcification. Normal liver. Normal gallbladder and extrahepatic biliary system. Normal spleen. Normal pancreas. Normal bilateral adrenal glands. There is a 1.5 cm x 0.8 cm calculus in the right renal pelvis at the junction with the right proximal ureter. Multiple nonobstructive right intrarenal calculi. The largest measures 1.6 cm. There are multiple nonobstructive left intrarenal calculi. A PEG tube is seen along the anterior aspect of the stomach. Normal small intestine. There are multiple colonic diverticula consistent with diverticulosis. The appendix is visualized and appears normal. There is diffuse atherosclerotic calcification of the abdominal aorta, without a demonstrated aneurysm. Normal inferior vena cava. Normal retroperitoneum. Diffuse irregular bladder wall thickening. This is worse on the left side and bladder base. Multiple rounded calcific densities are seen within the lateral wall more prominent on the left side and bladder base. Normal abdominal wall. There are diffuse degenerative changes of the visualized lumbar spine. Levoscoliosis. There is prominent trabeculation of the right iliac bone. This may represent either Paget''s disease or fibrous dysplasia. CT/Abdomen/Pelvis without Cont IMPRESSION: 1.5 cm x 0.8 cm calculus in the right renal pelvis at the junction with the right ureter causing mild degree of obstruction. Bilateral intrarenal calculi. Diffuse bladder wall thickening as described with focal calcifications within the bladder wall. Electronically Signed: Bob Jolley MD at 15:54 EDT , Service support ,
--- NOTE | 2020-05-24 15:05 | PCM.HP.STD ---
Problem List (1) Pneumonia Status: Acute Qualifiers: Pneumonia type: aspiration pneumonia Aspiration pneumonia type: unspecified Laterality: right Lung location: lower lobe of lung Qualified Code(s): J69.0 - Pneumonitis due to inhalation of food and vomit (2) Presence of externally removable percutaneous endoscopic gastrostomy (PEG) tube Status: Chronic (3) Seizure disorder Status: Chronic (4) Hypertension Status: Chronic Qualifiers: Hypertension type: essential hypertension (5) COPD (chronic obstructive pulmonary disease) Status: Chronic Qualifiers: Emphysema type: unspecified (6) Multiple sclerosis Status: Chronic (7) Dysphagia Status: Chronic Qualifiers: Dysphagia type: oropharyngeal phase Qualified Code(s): R13.12 - Dysphagia, oropharyngeal phase (8) BPH (benign prostatic hypertrophy) Status: Chronic Qualifiers: Lower urinary tract symptom presence: unspecified whether lower urinary tract symptoms present Qualified Code(s): N40.0 - Benign prostatic hyperplasia without lower urinary tract symptoms (9) GERD (gastroesophageal reflux disease) Status: Chronic Qualifiers: Esophagitis presence: esophagitis presence not specified Qualified Code(s): K21.9 - Gastro-esophageal reflux disease without esophagitis History of Present Illness Date of Admission: 05/24/20 Chief Complaint: Weakness - 2 weeks The patient is a 75 year old M medical history of MS, bedridden, complicated by oropharyngeal dysphagia, status post PEG tube, resident at home with his , who is his primary and sole caregiver. Patient comes in with a 2-week history of increasing weakness as well as urine frequency. Patient's uses a gait belt to assist him. No choking episodes at home. No fever or chills. Patient is usually on 2 L of oxygen. Patient is lethargic, attributes it to him being very tired. His vital signs show temperature 97.6 F, heart rate 84, blood pressure 138/78, respiratory rate is 40, SPO2 is 98% on 4 L. WBC count is 27.8, hemoglobin 9.1, platelet count 781, CMP is unremarkable except for ALP of 156. Urinalysis is slightly cloudy, nitrite positive, leukocyte Estrace 500, WBC 25-50, 3+ bacteria. Admitting chest x-ray showed no acute abnormality. CT abd/pelvis showed 1.5 cm x 0.8 cm calculus in the right renal pelvis at the junction with the right ureter causing mild degree of obstruction, bilateral intrarenal calculi, diffuse bladder wall thickening as well as focal calcification within the bladder wall. Past Medical History Past Medical History (Chronic Problems): Chronic Problems (Last Reviewed 06/27/19 @ 10:18 by Greer Don) 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) Ulcerative colitis (Chronic) Seizure disorder (Chronic) Depression (Chronic) Physical debility (Chronic) Hypertension (Chronic) COPD (chronic obstructive pulmonary disease) (Chronic) Multiple sclerosis (Chronic) Dysphagia (Chronic) Anemia (Chronic) BPH (benign prostatic hypertrophy) (Chronic) Vitamin D deficiency (Chronic) GERD (gastroesophageal reflux disease) (Chronic) Ulcerative esophagitis (Chronic) Gout (Chronic) Medical History: Medical History (Last Reviewed 06/27/19 @ 10:18 by Greer Don) Cellulitis of right arm (Acute) L03.113 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) Z93.1 Depression (Chronic) F32.9 Physical debility (Chronic) R53.81 Hypertension (Chronic) I10 COPD (chronic obstructive pulmonary disease) (Chronic) J44.9 Multiple sclerosis (Chronic) G35 Dysphagia (Chronic) R13.10 Anemia (Chronic) D64.9 BPH (benign prostatic hypertrophy) (Chronic) N40.0 Vitamin D deficiency (Chronic) E55.9 GERD (gastroesophageal reflux disease) (Chronic) K21.9 Ulcerative esophagitis (Chronic) K22.10 Gout (Chronic) M10.9 Normal colonoscopy Open wound of buttock, complicated S31.809A Allergies hydrochlorothiazide Allergy (Verified 05/24/20 12:05) Unknown lactose-reduced food [From Ensure] Adverse Reaction (Verified 05/24/20 12:05) Diarrhea nutritional supplement,special formulas [From Ensure] Adverse Reaction (Verified 05/24/20 12:05) Diarrhea Home Medications: Ambulatory Orders Medication Instructions Recorded Cholecalciferol (VIT D3) [Vitamin 5,000 unit PO MARCUS 02/20/14 D3] lansoprazole 30 mg capsule,delayed 30 mg PO DAILY 02/19/17 release budesonide 0.5 mg/2 mL suspension 0.5 mg INHALATION QDAY #60 ml 03/25/17 for nebulization Amlodipine [Norvasc] 5 mg PO DAILY 03/25/18 Duloxetine Hcl [Cymbalta] 60 mg PO DAILY 03/25/18 Losartan Potassium [Cozaar] 100 mg PO DAILY 03/25/18 Vitamin B Comp W-C [Allbee W/C 1 cap PO DAILY 03/25/18 Caplet, Thera B Comp/C] Dalfampridine [Ampyra] 10 mg PO BID@0900,2100 03/29/18 Calcium Citrate/Vitamin D3 1 ea PO BID 07/30/18 [Calcium Cit 200 mg-D3 125 Unit] Docusate Sodium [Colace] 250 mg PO DAILY 07/30/18 Glatiramer Acetate 40 mg SQ SUTUTH@1000 10/02/18 Polyethylene Glycol 3350 [Miralax] 17 gm PO DAILY 10/04/18 Oxcarbazepine [Trileptal] 300 mg PO 0600,1200,1800 03/09/19 Dronabinol [Marinol] 5 mg PO BID 05/24/20 Ipratropium/Albuterol Sulfate 3 ml INHALATION 4X/DAY 05/24/20 [Duoneb] Multivitamin with Minerals 1 tab PO DAILY 05/24/20 [Multivitamins with Minerals] Surgical History: Surgical History (Last Reviewed 06/27/19 @ 10:18 by Greer Don) History of esophagogastroduodenoscopy (EGD) Z98.890 S/P percutaneous endoscopic gastrostomy (PEG) tube placement Z93.1 Surgical History: - - PEG tube, s/p EGD Psychiatric History: Depression Lives: Spouse/ Significant Other Smoking Status: Former smoker Tobacco Use: Non-smoker Alcohol: None Drugs: None - *Family History Maternal Family History: Family History (Last Reviewed 06/27/19 @ 10:18 by Greer Don) Mother Colon cancer Breast cancer Lung cancer Father CAD (coronary artery disease) Heart disease History Items: Cancer - 70's -breast, colon, lung Paternal Family History: Family History (Last Reviewed 06/27/19 @ 10:18 by Greer Don) Mother Colon cancer Breast cancer Lung cancer Father CAD (coronary artery disease) Heart disease History Items: Heart Disease - age 70's Review of Systems Unable to obtain accurate/complete ROS d/t: Due to patient's lethargy VTE Information - Inpt Only VTE Present on Admission: No VTE Pharm Prophylaxis ordered?: Yes - Physical Exam Vitals/I&O's: Vital Signs Temp Pulse Resp BP Pulse Ox 97.6 F L 87 14 117/55 L 96 05/24/20 11:57 05/24/20 14:00 05/24/20 14:00 05/24/20 14:00 05/24/20 14:00 Oxygen Flow Rate (L/min) 5 Oxygen Delivery Method Nasal Cannula Weight: 61.8 kg Body Mass Index (BMI) 17.9 General: Alert, Oriented x3, Cooperative, No apparent distress, Lethargic, - - Appears chronically unwell, on 5L oxygen HEENT: Atraumatic, PERRLA, EOMI, Normocephalic Oral: Moist Mucosa Neck: Supple Lungs: Diminished Cardiovascular: Regular rate, Regular Rhythm, Normal S1, Normal S2, No murmurs Abdomen: Bowel Sounds Present, Soft, Non Tender, Non-Distended, No Hepato-splenomegaly Extremities: Edema - bilateral pedal edema Skin: - - coccygeal redness Musculoskeletal: No Tenderness to Palpation of Joints or Extremities Lymphatic: No Cervical, Supraclavicular, or Inguinal Adenopathy Neurological: Cranial nerves II-XII grossly intact, - - Contractures of these lower extremities, power is 3/5 in upper extremities Psych/Mental Status: Normal Affect, Appropriate Laboratory Results 05/24/20 13:13: WBC 27.8 H, RBC 3.16 L, Hgb 9.1 L, Hct 29.3 L, MCV 92.7, MCH 28.8, MCHC 31.1 L, RDW Std Deviation 59.5 H, RDW Coeff of Ivelisse 17.9 H, Plt Count 781 H*, MPV 11.4, Immature Gran % (Auto) 1.300 H, Neut % (Auto) 84.7 H, Lymph % (Auto) 6.5 L, Linn % (Auto) 7.3, Eos % (Auto) 0.0, Baso % (Auto) 0.2, Absolute Neuts (auto) 23.5 H, Absolute Lymphs (auto) 1.80, Nucleated RBC % 0, Platelet Estimate MKD INC 05/24/20 13:13: Sodium 138, Potassium 4.8, Chloride 100, Carbon Dioxide 35.0 H, Anion Gap 3 L, BUN 37 H, Creatinine 1.00, Estim Creat Clear Calc 56.65, Est GFR (MDRD) Af Amer 94, Est GFR (MDRD) Non-Af 78, BUN/Creatinine Ratio 37.2 H, Glucose 136 H, Calcium 9.5, Total Bilirubin 0.50, AST 42 H, ALT 36, Alkaline Phosphatase 156 H, Troponin I < 0.015, Total Protein 7.5, Albumin 2.1 L, Globulin 5.4 H, Albumin/Globulin Ratio 0.4 L 05/24/20 14:16: Urine Color Yellow, Urine Clarity Sl. Cloudy, Urine pH 6.5, Ur Specific Nunez 1.010, Urine Protein 30 H, Urine Glucose (UA) Normal, Urine Ketones Negative, Urine Occult Blood 150 H, Urine Nitrite Positive H, Urine Bilirubin Negative, Urine Urobilinogen Normal, Ur Leukocyte Esterase 500 H, Urine RBC 0-5 SEEN, Urine WBC 25-50 SEEN, Ur Squamous Epith Cells 0-5 SEEN, Urine Bacteria 3+, Urine Mucus 0 SEEN Current Medications Ceftriaxone Sodium (Rocephin) 1 gm in 50 mls @ 100 mls/hr IV X1 ONE Stop: 05/24/20 15:30 Assessment/Plan All Active Problems (Last Reviewed 06/27/19 @ 10:18 by Greer Don) Pneumonia (Acute) Sepsis (Acute) Cellulitis of right arm (Acute) Acute respiratory failure (Acute) COPD exacerbation (Acute) 1. Acute aspiration pneumonia in a patient with MS Status post PEG tube but feeds by mouth Started on IV ceftriaxone and azithromycin; continue on IV Unasyn Technical Administrative Assistant and speech therapy was consulted 2.Acute UTI, you have underlying BPH on IV antibiotics, follow-up on urine cultures 3. Lethargy, history of COPD, will get ABG rule out hypercapnia Continue with breathing treatments as needed 4. Chronic dysphagia, status post PEG tube, Technical Administrative Assistant and speech therapy was consulted 5. Kidney stones, noted on CT of the abdomen and pelvis, largest is 1.5 cm on the right Urology consulted 6. Pressure ulcer, sacral, stage I, Mepilex applied, wound RN consult 7. Hypertension, controlled, continue on amlodipine, losartan 8. Seizure disorder, continue on Trileptal 9. Multiple sclerosis, chronic debility, bedbound, PT and OT to evaluate and treat 10. DVT PPx- Lovenox SC 11. Code status - DNR-CC I discussed and explained in details the various types of CODE STATUS-full code, DNR CCA, DNR CC with the patient's , Johanne, who is his HCPOA. He stated that patient is a DNR CC. She does not want cardiopulmonary resuscitation. He has a living will on file. Time spent discussing CODE STATUS 16 minutes Inpatient E&M: 44415 Init Hosp L3 Procedures: 55718 Advncd Care Plan 30 Min
[2020-05-24] MEDS: Ceftriaxone 1 GM/50 ML BAG IV (15:47)
[2020-05-24 16:08] LABS: Lactic Acid 1.1 mmol/L (0.4-1.9)
--- NOTE | 2020-05-24 17:22 | PCM.NTREPORT ---
Nutrition Therapy Report - History Nutrition Services has been consulted to:: Manage nutrient details of diet order Current diet / nutrition support order:: NPO - Anthropometric Measurements Height:: 5 ft 11 in Weight:: 55.747 kg Body Mass Index (BMI):: 17.1 - Relevant Labs Relevant Labs:: WBC 27.8 K/mm3 (4.4-11.0) H 05/24/20 13:13 RBC 3.16 M/mm3 (4.6-6.2) L 05/24/20 13:13 Hgb 9.1 g/dL (13.0-16.5) L 05/24/20 13:13 Hct 29.3 % (40-54) L 05/24/20 13:13 MCHC 31.1 g/dL (32-36) L 05/24/20 13:13 RDW Std Deviation 59.5 fl (35.1-43.9) H 05/24/20 13:13 RDW Coeff of Ivelisse 17.9 % (11.6-14.6) H 05/24/20 13:13 Plt Count 781 K/mm3 (150-450) H* 05/24/20 13:13 Immature Gran % (Auto) 1.300 % (0.0-0.9) H 05/24/20 13:13 Neut % (Auto) 84.7 % (47-70) H 05/24/20 13:13 Lymph % (Auto) 6.5 % (19-41) L 05/24/20 13:13 Absolute Neuts (auto) 23.5 X10^3/uL (2.0-7.7) H 05/24/20 13:13 Carbon Dioxide 35.0 mmol/L (21.0-32.0) H 05/24/20 13:13 Anion Gap 3 (5-15) L 05/24/20 13:13 BUN 37 mg/dL (7-18) H 05/24/20 13:13 BUN/Creatinine Ratio 37.2 RATIO (10-20) H 05/24/20 13:13 Glucose 136 mg/dL (74-106) H 05/24/20 13:13 AST 42 U/L (15-37) H 05/24/20 13:13 Alkaline Phosphatase 156 U/L (45-117) H 05/24/20 13:13 Albumin 2.1 g/dL (3.2-5.0) L 05/24/20 13:13 Globulin 5.4 g/dL (2.2-4.2) H 05/24/20 13:13 Albumin/Globulin Ratio 0.4 RATIO (0.9-2.4) L 05/24/20 13:13 - Assessment Food / Nutrition-Related History:: RDN spoke w/ Caregiver Johanne Dang- pt sleeping soundly. Reports no enteral nutrition formula provided via PEG- fair to poor intake mud analysis well logging captain and notes he gets exhausted and doesn't eat a lot. States I give him chicken broth and thinned out oatmeal with water through his PEG as his b-fast; pt consumes L&D regular/soft textures however notes pt will chew food for long periods to swallow safely. Provides pt gatorade throughout the day via PO. States Every Thursday he has a spa day and I flush his PEG then with water while he is in the shower- does not provide additional flushes apart from this. APPLICATOR SPRAYER consulted- failed dysphagia screen, changed pt to NPO status. Discussed NPO status & APPLICATOR SPRAYER consult w/ Johanne- Johanne refusing consult and states This is why I waited to bring him. He hates having to go through all of that- RDN informed ERIN Handy. Reports Boost & Ensure cause pt to experience diarrhea- declines ONS at this time. Unsure of UBW. Wt hx per EMR 03/09/19 137.1#- CBW 122.9#. Pt w/ 10% wt loss x 1 year (not significant for malnutrition). Upon visual observation pt w/ s/s of severe muscle/fat wasting. - Nutrition Diagnosis Problem / Etiology / Signs & Symptoms (PES):: Severe malnutrition in the context of chronic disease/condition RT inadequate oral intake d/t fatigue AEB pt caregive comments, pt consuming </=75% energy intake compared to estimated energy needs >/=3months, severe muscle/fat wasting, and BMI 17.1. Evidence of Malnutrition Exists:: Yes Severe PCM:: Chronic Illness - Nutrition Intervention Nutrition Prescription:: 8024-3311 calories, 55-65 g protein - Food / Nutrient Delivery Interventions Nutrition support ordered as / adjusted to:: Rec initiation of enteral nutrition support via PEG if in line w/ pt and family wishes as pt presents w/ severe chronic malnutrition and unable to meet estimated energy needs via PO diet. If deemed safe for PO diet rec Regular diet w/ texture modifications per APPLICATOR SPRAYER. Nutrition education provided?: No - MNT Monitoring Further MNT monitoring and evaluation required?: Yes MNT Follow-up in:: 1-2 days
--- NOTE | 2020-05-24 18:01 | VDLE_ITS ---
Reason For Study: swelling RIGHT LEFT GSV is normal. GSV is normal. CFV is compressible, spontaneous, phasic, CFV is compressible, spontaneous, phasic, competent and demonstrates normal competent, and demonstrates normal augmentation. augmentation. FV is compressible, spontaneous, phasic, FV is compressible, spontaneous, phasic, competent and demonstrates normal competent and demonstrates normal augmentation. augmentation. POP V is compressible, spontaneous, phasic, POP V is compressible, spontaneous, phasic, competent and demonstrates normal competent and demonstrates normal augmentation. augmentation. T/P Trunk is compressible. T/P Trunk is compressible. PTV is compressible. PTV is compressible. RT PerV is compressible. LT PerV is compressible. Procedure This is a venous duplex using B-mode, color flow and spectral Doppler. Exam performed portable in patient room. The study was technically difficult. Due to bilateral leg contractures. A preliminary report was called and/or faxed to [facility]. Interpretation Summary No evidence for acute deep venous thrombosis bilateral lower extremities with patent and compressible bilateral great saphenous veins. Technically challenging procedure secondary to contractures Ordering Physician: Nini Field Referring Physician: Mario Giraldo Performed By: Rachele Matthews, DARRIAN, RVT
[2020-05-24 18:11] LABS: Allen Test Positive; Base Excess 10 mmol/L (-2 to +2); Bicarbonate 35.7 mmol/L (22-26); Blood Gas Specimen Type ART; O2 Delivery Device Cannula; PO2 138 mmHG (75-100); SITE L Radial; SO2 99 % (95-99); Total Carbon Dioxide 38 mmol/L; pCO2 63.9 mmHg (35-45); pH 7.36 (7.35-7.45)
[2020-05-24] MEDS: Ipratropium/Albuterol Sulfate 3 ML AMPUL.NEB INHALATION (19:24)
[2020-05-24] MEDS: Dextrose 5%/0.9% NaCl 1,000 ML 75 ML IV (19:57)
[2020-05-24] MEDS: Enoxaparin 40 MG/0.4 ML Syringe SC (20:00)
[2020-05-24] MEDS: Menthol/Lanolin/Calamine/Znox 113 GM Tube 1 APPLIC TOPICAL (21:45)
[2020-05-24] MEDS: Acetaminophen 325 MG Tablet 650 MG PO (21:50)
[2020-05-25] VITALS (11 sets, daily range): BP systolic 114–159; BP diastolic 54–83; PULSE 81–90; RESP 12–24; TEMP 36.6–37; O2SAT 93–100
[2020-05-25] MEDS: Ipratropium/Albuterol Sulfate 3 ML AMPUL.NEB INHALATION ×5 (02:06→19:51)
[2020-05-25] MEDS: OXcarbazepine 300 MG Tablet PO (05:56)
[2020-05-25] MEDS: Menthol/Lanolin/Calamine/Znox 113 GM Tube 1 APPLIC TOPICAL ×3 (05:56→21:49)
[2020-05-25] MEDS: Acetaminophen 325 MG Tablet 650 MG PO (06:04)
[2020-05-25 06:42] LABS: Absolute Lymphocyte Count 0.84 X10^3/uL (0.83-4.51); Absolute Neutrophil Count 22.5 X10^3/uL (2.0-7.7); Basophil# 0.03 X10^3/uL; Basophil% 0.1 % (0-1); Eosinophil# 0.04 X10^3/uL; Eosinophils% 0.2 % (0-5); Hematocrit 26.6 % (40-54); Hemoglobin 8.5 g/dL (13.0-16.5); Lymphocyte # 0.84 X10^3/ul (4.0); Lymphocyte % 3.3 % (19-41); Mean Corpuscular Hgb 28.9 pg (27.0-32.0); Mean Corpuscular Volume 90.5 fL (80-94); Mean Platelet Vol. 10.9 fl (6.2-12.0); Monocyte# 1.47 X10^3/uL; Monocyte% 5.8 % (0-10); NRBC Flagged by Analyzer 0 % (0-5); Neutrophil # 22.48 X10^3/uL (2.7-7.7); Neutrophil % 89.4 % (47-70); POSITIVE DIFFERENTIAL YES; Platelet Count 720 K/mm3 (150-450); RBC Distribution Width CV 17.4 % (11.6-14.6); RBC Distribution Width SD 57.8 fl (35.1-43.9); Red Blood Count 2.94 M/mm3 (4.6-6.2); White Blood Count 25.2 K/mm3 (4.4-11.0)
[2020-05-25 06:44] LABS: Differential Indicated SCAN CRITERIA MET
--- NOTE | 2020-05-25 06:44 | RAD_ITS ---
STUDY: X-RAY CHEST REASON FOR EXAM: Male, 75 years old. Increased SOB and crackles TECHNIQUE: Single AP portable view of the chest. COMPARISON: Comparison is made with prior study dated 05/24/2020. FINDINGS: Hyperinflation. Stable increased markings at the right lung base with blunting of the right costophrenic angle. The left lung is clear. Normal size heart. Normal mediastinum and rodriguez. There is prominence of the pulmonary hilar arteries without peripheral pulmonary vascular congestion, suggesting pulmonary hypertension. There is atherosclerotic tortuosity of the aortic arch and descending thoracic aorta. There are diffuse degenerative changes of the visualized thoracic spine. Normal visualized ribs, clavicles, and shoulders. There is no demonstrated abnormality of the visualized soft tissue structures of the upper abdomen. RAD/Chest 1 View (Portable) IMPRESSION: Hyperinflation. Stable increased markings at the right lung base with blunting of the right costophrenic angle. Electronically Signed: Bob Jolley MD at 8:11 EDT , Service support ,
[2020-05-25 06:59] LABS: Platelet Estimate MKD INC (ADEQ)
[2020-05-25] MEDS: Budesonide Respules 0.5 MG/2 ML AMPUL.NEB. INHALATION (06:59)
[2020-05-25 07:00] LABS: Differential Comment SCANNED; Hypochromasia 1+; Ovalocyte RARE
[2020-05-25 07:16] LABS: ALB/GLOB Ratio 0.4 RATIO (0.9-2.4); AST(SGOT) 22 U/L (15-37); Alanine Aminotransfer ALT/SGPT 27 U/L (16-61); Albumin, Serum 1.9 g/dL (3.2-5.0); Alkaline Phosphatase 134 U/L (45-117); Anion Gap 4 (5-15); BUN 28 mg/dL (7-18); BUN/Creat Ratio 39.2 RATIO (10-20); Calcium,Total 9.4 mg/dL (8.5-10.1); Chloride 102 mmol/L (98-107); Creatinine, Serum 0.71 mg/dL (0.70-1.30); EST Glomerular Filtration Rate 114 mL/min (>60); Est Glom Filt Rate - Afr Amer 138 mL/min (>60); Estimated Creatinine Clearance 52.71 ml/min; Globulin 4.7 g/dL (2.2-4.2); Glucose 93 mg/dL (74-106); Potassium 3.8 mmol/L (3.5-5.1); Protein, Total 6.6 g/dL (6.4-8.2); Sodium Level 142 mmol/L (136-145)
--- NOTE | 2020-05-25 10:08 | PN_ITS ---
Patient Problems: Active and Suspected Problems (Last Reviewed 06/27/19 @ 10:18 by Greer Don) Pneumonia (Acute) Right kidney stone (Acute) Subjective: No issues overnight, he does appear lethargic does not open his eyes to my verbal commands. Vitals/I&O's: Vital Signs Temp Pulse Resp BP Pulse Ox 98.5 F 90 19 H 122/65 H 93 05/25/20 07:46 05/25/20 07:46 05/25/20 07:46 05/25/20 07:46 05/25/20 07:46 Oxygen Flow Rate (L/min) 4 Oxygen Delivery Method Nasal Cannula Weight: 126 lb 12.253 oz Body Mass Index (BMI) 17.1 Intake and Output for Last 24 Hours 05/23/20 05/24/20 05/25/20 23:59 23:59 23:59 Intake Total 1162 / 1262 1028.25 / 1028.25 Output Total 100 / 100 Balance 1162 / 1262 928.25 / 928.25 General: No apparent distress, Lethargic HEENT: Atraumatic, PERRLA, EOMI, Normocephalic Oral: Moist Mucosa Neck: Supple, No JVD Lungs: Clear to auscultation, Normal air movement, No rhonchi, No wheeze, No rales, Diminished Cardiovascular: Regular rate, Regular Rhythm, Normal S1, Normal S2, No murmurs Abdomen: Soft, Non Tender, Non-Distended, No Hepato-splenomegaly Extremities: Capillary Refill Less than 3 Seconds, Edema Skin: - - Redness over his coccyx Musculoskeletal: Cachexia - Temporal wasting, - - Lower extremity contractures Neurological: - - Lower extremity contractures with chronic weakness of his upper extremities 3 out of 5. Psych/Mental Status: Normal Affect, Appropriate Microbiology Past 72 Hours 05/24/20 15:25 Blood Culture (Wb) - Left Forearm Blood Culture - Preliminary 05/24/20 15:25 Blood Culture (Wb) - Anticubital Left Blood Culture - Preliminary Laboratory Results 05/24/20 13:13: WBC 27.8 H, RBC 3.16 L, Hgb 9.1 L, Hct 29.3 L, MCV 92.7, MCH 28.8, MCHC 31.1 L, RDW Std Deviation 59.5 H, RDW Coeff of Ivelisse 17.9 H, Plt Count 781 H*, MPV 11.4, Immature Gran % (Auto) 1.300 H, Neut % (Auto) 84.7 H, Lymph % (Auto) 6.5 L, [place] % (Auto) 7.3, Eos % (Auto) 0.0, Baso % (Auto) 0.2, Absolute Neuts (auto) 23.5 H, Absolute Lymphs (auto) 1.80, Nucleated RBC % 0, Platelet Estimate D INC 05/24/20 13:13: Sodium 138, Potassium 4.8, Chloride 100, Carbon Dioxide 35.0 H, Anion Gap 3 L, BUN 37 H, Creatinine 1.00, Estim Creat Clear Calc 56.65, Est GFR (MDRD) Af Amer 94, Est GFR (MDRD) Non-Af 78, BUN/Creatinine Ratio 37.2 H, Glucose 136 H, Calcium 9.5, Total Bilirubin 0.50, AST 42 H, ALT 36, Alkaline Phosphatase 156 H, Troponin I < 0.015, Total Protein 7.5, Albumin 2.1 L, Globulin 5.4 H, Albumin/Globulin Ratio 0.4 L 05/24/20 14:16: Urine Color Yellow, Urine Clarity Sl. Cloudy, Urine pH 6.5, Ur Specific [place] 1.010, Urine Protein 30 H, Urine Glucose (UA) Normal, Urine Ketones Negative, Urine Occult Blood 150 H, Urine Nitrite Positive H, Urine Bilirubin Negative, Urine Urobilinogen Normal, Ur Leukocyte Esterase 500 H, Urine RBC 0-5 SEEN, Urine WBC 25-50 SEEN, Ur Squamous Epith Cells 0-5 SEEN, Urine Bacteria 3+, Urine Mucus 0 SEEN 05/24/20 15:25: Lactic Acid 1.1 05/24/20 18:06: Specimen Type ART, Sample Site L Radial, pH 7.36, Bicarbonate Actual 35.7 H, Total CO2 38, Base Excess 10 H, O2 Saturation 99, ABG pCO2 63.9 H , ABG pO2 138 H, Sha Test Positive, O2 Delivery Device Cannula, Liter Flow 5.0 05/25/20 06:35: WBC 25.2 H, RBC 2.94 L, Hgb 8.5 L, Hct 26.6 L, MCV 90.5, MCH 28.9, MCHC 32.0, RDW Std Deviation 57.8 H, RDW Coeff of Ivelisse 17.4 H, Plt Count 720 H, MPV 10.9, Immature Gran % (Auto) 1.200 H, Neut % (Auto) 89.4 H, Lymph % (Auto) 3.3 L, [place] % (Auto) 5.8, Eos % (Auto) 0.2, Baso % (Auto) 0.1, Absolute Neuts (auto) 22.5 H, Absolute Lymphs (auto) 0.84, Nucleated RBC % 0, Differential Comment SCANNED, Platelet Estimate MKD INC, Hypochromasia 1+, Ovalocytes RARE 05/25/20 06:35: Sodium 142, Potassium 3.8, Chloride 102, Carbon Dioxide 36.0 H, Anion Gap 4 L, BUN 28 H, Creatinine 0.71, Estim Creat Clear Calc 52.71, Est GFR (MDRD) Af Amer 138, Est GFR (MDRD) Non-Af 114, BUN/Creatinine Ratio 39.2 H, Glucose 93, Calcium 9.4, Total Bilirubin 0.30, AST 22, ALT 27, Alkaline Phosphatase 134 H, Total Protein 6.6, Albumin 1.9 L, Globulin 4.7 H, Albumin/Globulin Ratio 0.4 L Current Medications Acetaminophen (Acetaminophen 325 Mg Tablet) 650 mg PO Q6H PRN PRN PRN Reason: Pain Score 1-10/Temp > 100.7 F Last Admin: 05/25/20 06:04 Dose: 650 mg Documented by: Al Hydroxide/Mg Hydroxide (Mag Hydrox/Al Hydrox/Simeth 30 Ml Udc) 30 ml PO Q6H PRN PRN PRN Reason: Gastric Burning Albuterol/Ipratropium (Ipratropium/Albuterol Sulfate 3 Ml Ampul.Neb) 3 ml INHALATION Q4HWA.RT [facility] Last Admin: 05/25/20 06:59 Dose: 3 ml Documented by: Amlodipine Besylate (Amlodipine 5 Mg Tablet) 5 mg PO DAILY [facility] Budesonide (Budesonide Respules 0.5 Mg/2 Ml Ampul.Neb.) 0.5 mg INHALATION DAILY.RT [facility] Last Admin: 05/25/20 06:59 Dose: 0.5 mg Documented by: Calamine/Phenol (Menthol/Lanolin/Calamine/Znox 113 Gm Tube) 1 applic TOPICAL TID CORNEL; Protocol Last Admin: 05/25/20 05:56 Dose: 1 applic Documented by: Calcium/Vitamin D (Calcium Carb/Vitamin D 1 Tablet Tablet) 1 tablet PO BIDCM [facility] Enoxaparin Sodium (Enoxaparin 40 Mg/0.4 Ml Syringe) 40 mg SC DAILY [facility] Last Admin: 05/24/20 20:00 Dose: 40 mg Documented by: Ampicillin Sodium/Sulbactam (Sodium 3 gm/ Sodium Chloride) 112 mls @ 150 mls/hr IV Q8 [facility] Last Infusion: 05/25/20 06:39 Dose: Infused Documented by: Lactobacillus Acidophilus (Lactobacillus Acidophilus) 2 tablet PO 4X/DAY [facility] Last Admin: 05/24/20 21:45 Dose: 2 tablet Documented by: Losartan Potassium (Losartan Potassium 100 Mg Tablet) 100 mg PO DAILY [facility] Multivitamins (Vitamin B Comp W-C Capsule) 1 capsule PO DAILY [facility] Multivitamins/Minerals (Multivitamins,Ther W-Minerals Tablet) 1 tablet PO DAILY@0800 [facility] Non-Formulary Medication (Dalfampridine) 10 mg PO DAILY [facility] Ondansetron HCl (Ondansetron 4 Mg/2 Ml Vial) 4 mg IV Q8H PRN PRN PRN Reason: NAUSEA/VOMITING Oxcarbazepine (Oxcarbazepine 300 Mg Tablet) 300 mg PO 0600,1200,1800 [facility] Last Admin: 05/25/20 05:56 Dose: 300 mg Documented by: Pantoprazole Sodium (Pantoprazole Sodium 40 Mg Tablet) 40 mg PO DAILY [facility] Polyethylene Glycol (Polyethylene Glycol 3350 17 Gm Packet) 17 gm PO DAILY [facility] Senna/Docusate Sodium (Senna/Docusate Sodium 1 Tablet) 2 tablet PO BID PRN PRN PRN Reason: Constipation Sodium Chloride (0.9% Saline Lock 10 Ml Syringe) 10 - 40 ml IV UD PRN PRN Reason: SALINE FLUSH STROKE Vital Signs/Narrative: Vital Signs Temp Pulse Resp BP Pulse Ox 05/25/20 07:46 98.5 F 90 19 H 122/65 H 93 05/25/20 06:49 90 16 93 Medical Necessity - Tobacco Use Smoking Status: Former smoker Tobacco Use: Non-smoker Assessment/Plan All Active Problems (Last Reviewed 06/27/19 @ 10:18 by Greer Don) Pneumonia (Acute) Sepsis (Acute) Right kidney stone (Acute) Cellulitis of right arm (Acute) Acute respiratory failure (Acute) COPD exacerbation (Acute) 1. Acute aspiration pneumonia with acute UTI with worsening debility and acute hypoxic hypercapnic respiratory failure/pressure ulcer stage I on sacrum/severe protein calorie malnutrition -He does have a PEG tube but still feeds by mouth -Continue with Rocephin and azithromycin -UA is also significant for a UTI this however should be treated with the Rocephin as well, will follow up urine cultures -Consult to wound care nurse pressure ulcer -BMI of 17.7 with an albumin of 1.9 as well as temporal wasting and heavily visible clavicles. -ABG with a PCO2 of 63, attempted to place BiPAP however he was refusing. Continue with 5 L nasal cannula and wean as able 2. 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 Hypertension -Blood pressure is stable -Continue with his home amlodipine and losartan 4. Kidney stones -Urology was consulted and felt there is nothing to do acutely for his 1.5 cm kidney stone on the right -We will monitor 5. GERD -Stable -Continue with PPI DVT: Lovenox Inpatient E&M: 91990 Subs Hosp L2
[2020-05-25] MEDS: Vitamin B Comp W-C Capsule 1 CAP PO (10:19)
[2020-05-25] MEDS: Polyethylene Glycol 3350 17 GM PACKET PO (10:19)
[2020-05-25] MEDS: Calcium Carb/Vitamin D 1 TABLET Tablet PO (10:19)
[2020-05-25] MEDS: Enoxaparin 40 MG/0.4 ML Syringe SC (10:19)
[2020-05-25] MEDS: Pantoprazole Sodium 40 MG Tablet PO (10:19)
[2020-05-25] MEDS: amLODIPine 5 MG Tablet PO (10:19)
[2020-05-25] MEDS: Losartan Potassium 100 MG Tablet PO (10:19)
[2020-05-25] MEDS: Multivitamins,Ther W-Minerals Tablet 1 TABLET PO (10:19)
--- NOTE | 2020-05-25 10:20 | NURSING ---
AM PO meds given via PEG tube per MD communication order. Pharmacy communication sent to pharmacist requesting med route be changed from PO to GT.
[2020-05-25 11:15] LABS: Pathologist Review Reviewed
--- NOTE | 2020-05-25 11:15 | NURSING ---
wound photo: left buttock
--- NOTE | 2020-05-25 11:50 | CASEMGMT ---
RN ANGELA Face to Face with patient for initial transition planning/care coordination assessment. RN CM introduced self and role at [facility]. Patient lying in bed, sleeping, at bedside. willing to participate in assessment and is able to answer all questions appropriately. Care providers, pharmacy, and demographics verified. wishes for patient to discharge home with resumption of HHC with [facility] for therapy. states she has no further needs or concerns at this time. CM to follow for discharge planning needs that may arise. PCP: Mario Giraldo Specialists: Arthur, Neurologist; Sandra, Surgeon Preferred Pharmacy: [facility] Insurance: [employer] Prescription Benefit: yes Living Will/HPOA: yes, Johanne Dang LNOK: Living Arrangements: Patient lives with in a 2 story home with chair stair lift. and private aide assist with care. Transportation: DME/HHC: states patient has shower chair, BSC, lift chair, grab bars, hand held shower, walker, wheelchair, nebulizer, and oxygen with portability at 2lpm through [employer] states she is having a hospital bed delivered today for patient. Patient is active with [facility] and would like therapy to resume through [facility] at discharge. Patient also has unit aide tech 4 days per week. Disposition Plan: Patient to discharge home with resumption of HHC, family support, and follow-up plans in place. Cherie RITTER, RN, CM
--- NOTE | 2020-05-25 12:03 | PCM.CONS.B ---
Problem List (1) Right kidney stone Status: Acute - Consult Date of Consult: 05/25/20 - Reason for Consult 75 yo M with multiple medical problems chronic stone in the right kidney no intervention needed. call me questions.
--- NOTE | 2020-05-25 12:21 | NURSING ---
Pt's provided home med, Dalfampridine, since it is a non-formulary. After was made aware of all meds being given via PEG d/t failing speech therapy perfecto, states this medication can not be crushed and she did not feel comfortable leaving it to be locked in pt's drawer. Pt's states she will bring this medication back in in the event that speech therapy would approve pt for PO intake at a later time. Pharmacy updated.
[2020-05-25] MEDS: OXcarbazepine 300 MG Tablet GT ×2 (13:14→17:22)
[2020-05-25] MEDS: Acetaminophen 650 MG/20 ML UDC GT ×2 (13:18→21:48)
[2020-05-25] MEDS: Calcium Carb/Vitamin D 1 TABLET Tablet GT (17:22)
[2020-05-25] MEDS: CLARIFY ORDER NOTE (17:44)
[2020-05-26] VITALS (17 sets, daily range): BP systolic 123–152; BP diastolic 54–76; PULSE 70–88; RESP 12–24; TEMP 36.5–37.1; O2SAT 92–99
[2020-05-26 05:55] LABS: Absolute Lymphocyte Count 1.21 X10^3/uL (0.83-4.51); Absolute Neutrophil Count 21.3 X10^3/uL (2.0-7.7); Basophil# 0.03 X10^3/uL; Basophil% 0.1 % (0-1); Eosinophil# 0.16 X10^3/uL; Eosinophils% 0.7 % (0-5); Hematocrit 25.9 % (40-54); Hemoglobin 7.9 g/dL (13.0-16.5); Lymphocyte # 1.21 X10^3/ul (4.0); Mean Corp Hgb Conc 30.5 g/dL (32-36); Mean Corpuscular Hgb 28.1 pg (27.0-32.0); Mean Corpuscular Volume 92.2 fL (80-94); Mean Platelet Vol. 10.6 fl (6.2-12.0); Monocyte% 6.2 % (0-10); NRBC Flagged by Analyzer 0 % (0-5); Neutrophil # 21.26 X10^3/uL (2.7-7.7); Neutrophil % 87.1 % (47-70); POSITIVE COUNT YES; POSITIVE DIFFERENTIAL YES; RBC Distribution Width CV 17.5 % (11.6-14.6); RBC Distribution Width SD 58.7 fl (35.1-43.9); Red Blood Count 2.81 M/mm3 (4.6-6.2); White Blood Count 24.4 K/mm3 (4.4-11.0)
[2020-05-26 06:05] LABS: Differential Indicated SCAN CRITERIA MET; Platelet Count 765 K/mm3 (150-450)
[2020-05-26] MEDS: Acetaminophen 650 MG/20 ML UDC GT ×2 (06:08→15:15)
[2020-05-26] MEDS: Menthol/Lanolin/Calamine/Znox 113 GM Tube 1 APPLIC TOPICAL ×3 (06:08→20:46)
[2020-05-26] MEDS: OXcarbazepine 300 MG Tablet GT ×3 (06:09→17:39)
[2020-05-26 06:27] LABS: Anion Gap 3 (5-15); BUN 23 mg/dL (7-18); BUN/Creat Ratio 33.8 RATIO (10-20); Calcium,Total 9.1 mg/dL (8.5-10.1); Chloride 102 mmol/L (98-107); Creatinine, Serum 0.68 mg/dL (0.70-1.30); EST Glomerular Filtration Rate 121 mL/min (>60); Est Glom Filt Rate - Afr Amer 147 mL/min (>60); Estimated Creatinine Clearance 52.89 ml/min; Glucose 84 mg/dL (74-106); Potassium 3.7 mmol/L (3.5-5.1); Sodium Level 143 mmol/L (136-145)
[2020-05-26] MEDS: Budesonide Respules 0.5 MG/2 ML AMPUL.NEB. INHALATION ×2 (07:17→19:37)
[2020-05-26] MEDS: Ipratropium/Albuterol Sulfate 3 ML AMPUL.NEB INHALATION ×3 (07:17→15:30)
[2020-05-26] MEDS: Losartan Potassium 100 MG Tablet GT (09:39)
[2020-05-26] MEDS: Vitamin B Comp W-C Capsule 1 CAP GT (09:40)
[2020-05-26] MEDS: Enoxaparin 40 MG/0.4 ML Syringe SC (09:40)
[2020-05-26] MEDS: Multivitamins,Ther W-Minerals Tablet 1 TABLET GT (09:40)
[2020-05-26] MEDS: Lansoprazole 15 MG Capsule.DR 30 MG GT (09:40)
[2020-05-26] MEDS: amLODIPine 5 MG Tablet GT (09:40)
[2020-05-26] MEDS: Calcium Carb/Vitamin D 1 TABLET Tablet GT ×2 (09:40→17:39)
[2020-05-26] MEDS: Polyethylene Glycol 3350 17 GM PACKET GT (09:40)
[2020-05-26 10:35] LABS: Amphetamine Urine VISTA NEGATIVE (<1000 ng/mL); Barbiturate Urine VISTA NEGATIVE (< 200 ng/mL); Benzodiazepine Urine VISTA NEGATIVE (< 200 ng/mL); Cocaine Urine VISTA NEGATIVE (< 300 ng/mL); Ecstacy Urine VISTA NEGATIVE (< 500 ng/mL); Methadone Urine VISTA NEGATIVE (< 300 ng/mL); PCP Urine VISTA NEGATIVE (< 25 ng/mL); THC Urine VISTA POSITIVE (< 50 ng/mL); Vista UDS pH Range 6
--- NOTE | 2020-05-26 10:40 | NURSING ---
Pt's , Johanne given update on pt condition. Informed Johanne that bipap was ordered yesterday afternoon and pt refused. Johanne spoke with pt and pt decided he would be willing to try bipap. CPS aware and will come place bipap on pt. Telemetry placed on pt per protocol.
--- NOTE | 2020-05-26 11:00 | PCM.PN.HOSP ---
Patient Problems: Active and Suspected Problems (Last Reviewed 06/27/19 @ 10:18 by Greer Don) Pneumonia (Acute) Right kidney stone (Acute) Subjective: Patient seen and examined. He was admitted with a complaint of weakness and frequency of urine. He was found to be saturating at 98% on [address] of the abdomen and pelvis showed 1.5 x 0.18 cm calculus in the right renal pelvis causing mild degree of obstruction as well as bilateral intrarenal calculi and diffuse bladder wall thickening. He is being managed for UTI and aspiration pneumonia. Patient remains very lethargic. He is on 3 L of oxygen at home. He would open his eyes and respond to voice but wouldnt answer any questions. Vitals/I&O's: Vital Signs Temp Pulse Resp BP Pulse Ox 97.8 F 80 22 H 123/61 H 96 05/26/20 07:44 05/26/20 07:44 05/26/20 07:44 05/26/20 07:44 05/26/20 07:44 Oxygen Flow Rate (L/min) 3 Oxygen Delivery Method Nasal Cannula Weight: 127 lb 3.307 oz Body Mass Index (BMI) 17.1 Intake and Output for Last 24 Hours 05/24/20 05/25/20 05/26/20 23:59 23:59 23:59 Intake Total 1162 / 1262 1742.25 / 1862.25 462 / 462 Output Total 100 / 100 Balance 1162 / 1262 1642.25 / 1762.25 462 / 462 General: Confused, Lethargic HEENT: Atraumatic, PERRLA, EOMI, Normocephalic Oral: Dry Mucosa Neck: Supple, No JVD, Negative Carotid Bruits Lungs: - - diminished breath sounds bibasally, no wheezes or crackles. on 4L of oxygen. Cardiovascular: Regular rate, Regular Rhythm, Normal S1, Normal S2, No murmurs Abdomen: Bowel Sounds Present, Soft, Non Tender, Non-Distended, No Hepato-splenomegaly Extremities: No clubbing, No cyanosis, No edema, Capillary Refill Less than 3 Seconds Skin: No rashes, No breakdown Musculoskeletal: No Tenderness to Palpation of Joints or Extremities Lymphatic: No Cervical, Supraclavicular, or Inguinal Adenopathy Neurological: Cranial nerves II-XII grossly intact, Neuro grossly intact, Motor Exam 5/5 strength throughout Psych/Mental Status: - - lethargic, flat affect Microbiology Past 72 Hours 05/24/20 14:16 Urine, Catheterized Urine Culture - Final Meth. resistant Staph. aureus 05/24/20 15:25 Blood Culture (Wb) - Left Forearm Blood Culture - Preliminary Staphylococcus aureus 05/24/20 15:25 Blood Culture (Wb) - Anticubital Left Blood Culture - Preliminary Staphylococcus aureus Laboratory Results 05/24/20 13:13: Diff Path Review Reviewed 05/26/20 05:35: WBC 24.4 H, RBC 2.81 L, Hgb 7.9 L, Hct 25.9 L, MCV 92.2, MCH 28.1, MCHC 30.5 L, RDW Std Deviation 58.7 H, RDW Coeff of Ivelisse 17.5 H, Plt Count 765 H*, MPV 10.6, Immature Gran % (Auto) 0.900, Neut % (Auto) 87.1 H, Lymph % (Auto) 5.0 L, [place] % (Auto) 6.2, Eos % (Auto) 0.7, Baso % (Auto) 0.1, Absolute Neuts (auto) 21.3 H, Absolute Lymphs (auto) 1.21, Nucleated RBC % 0, Diff Path Review July05/26/20 05:35: Sodium 143, Potassium 3.7, Chloride 102, Carbon Dioxide 38.0 H, Anion Gap 3 L, BUN 23 H, Creatinine 0.68 L, Estim Creat Clear Calc 52.89, Est GFR (MDRD) Af Amer 147, Est GFR (MDRD) Non-Af 121, BUN/Creatinine Ratio 33.8 H, Glucose 84, Calcium 9.1 05/26/20 10:00: Urine Opiates Screen NEGATIVE, Urine Methadone Screen NEGATIVE, Ur Barbiturates Screen NEGATIVE, Ur Phencyclidine Scrn NEGATIVE, Ur Amphetamines Screen NEGATIVE, U Methamphetamin-MDMA NEGATIVE, U Benzodiazepines Scrn NEGATIVE, Urine Cocaine Screen NEGATIVE, U Cannabinoids Screen POSITIVE H, Ur Drug Screen Comment Diagnostic Data Abdomen/Pelvis CT 05/24/20 15:00 IMPRESSION: 1.5 cm x 0.8 cm calculus in the right renal pelvis at the junction with the right ureter causing mild degree of obstruction. Bilateral intrarenal calculi. Diffuse bladder wall thickening as described with focal calcifications within the bladder wall. Electronically Signed: Bob Jolley MD at 15:54 EDT , Service support , Chest X-Ray 05/25/20 06:44 IMPRESSION: Hyperinflation. Stable increased markings at the right lung base with blunting of the right costophrenic angle. Electronically Signed: Bob Jolley MD at 8:11 EDT , Service support , Current Medications Acetaminophen (Acetaminophen 650 Mg/20 Ml Udc) 650 mg GT Q6H PRN PRN PRN Reason: Pain Score 1-10/Temp > 100.7 F Last Admin: 05/26/20 06:08 Dose: 650 mg Documented by: Al Hydroxide/Mg Hydroxide (Mag Hydrox/Al Hydrox/Simeth 30 Ml Udc) 30 ml GT Q6H PRN PRN PRN Reason: Gastric Burning Albuterol/Ipratropium (Ipratropium/Albuterol Sulfate 3 Ml Ampul.Neb) 3 ml INHALATION Q4HWA.RT [facility] Last Admin: 05/26/20 07:17 Dose: 3 ml Documented by: Amlodipine Besylate (Amlodipine 5 Mg Tablet) 5 mg GT DAILY [facility] Last Admin: 05/26/20 09:40 Dose: 5 mg Documented by: Budesonide (Budesonide Respules 0.5 Mg/2 Ml Ampul.Neb.) 0.5 mg INHALATION DAILY.RT [facility] Last Admin: 05/26/20 07:17 Dose: 0.5 mg Documented by: Calamine/Phenol (Menthol/Lanolin/Calamine/Znox 113 Gm Tube) 1 applic TOPICAL TID CORNEL; Protocol Last Admin: 05/26/20 06:08 Dose: 1 applic Documented by: Calcium/Vitamin D (Calcium Carb/Vitamin D 1 Tablet Tablet) 1 tablet GT BIDCM [facility] Last Admin: 05/26/20 09:40 Dose: 1 tablet Documented by: Enoxaparin Sodium (Enoxaparin 40 Mg/0.4 Ml Syringe) 40 mg SC DAILY [facility] Last Admin: 05/26/20 09:40 Dose: 40 mg Documented by: Ampicillin Sodium/Sulbactam (Sodium 3 gm/ Sodium Chloride) 112 mls @ 150 mls/hr IV Q8 [facility] Last Infusion: 05/26/20 06:53 Dose: Infused Documented by: Vancomycin IV Pharmacy to Dose (1 ea/ Sodium Chloride) 500 mls @ 250 mls/hr IV X1 PRN; Protocol PRN Reason: Rx to Dose Lactobacillus Acidophilus (Lactobacillus Acidophilus) 2 tablet GT 4X/DAY [facility] Last Admin: 05/26/20 09:39 Dose: 2 tablet Documented by: Lansoprazole (Lansoprazole 15 Mg Capsule.) 30 mg GT DAILY [facility] Last Admin: 05/26/20 09:40 Dose: 30 mg Documented by: Losartan Potassium (Losartan Potassium 100 Mg Tablet) 100 mg GT DAILY [facility] Last Admin: 05/26/20 09:39 Dose: 100 mg Documented by: Multivitamins (Vitamin B Comp W-C Capsule) 1 capsule GT DAILY [facility] Last Admin: 05/26/20 09:40 Dose: 1 capsule Documented by: Multivitamins/Minerals (Multivitamins,Ther W-Minerals Tablet) 1 tablet GT DAILY@0800 [facility] Last Admin: 05/26/20 09:40 Dose: 1 tablet Documented by: Non-Formulary Medication (Dalfampridine) 10 mg PO DAILY [facility] Ondansetron HCl (Ondansetron 4 Mg/2 Ml Vial) 4 mg IV Q8H PRN PRN PRN Reason: NAUSEA/VOMITING Oxcarbazepine (Oxcarbazepine 300 Mg Tablet) 300 mg GT 0600,1200,1800 [facility] Last Admin: 05/26/20 06:09 Dose: 300 mg Documented by: Polyethylene Glycol (Polyethylene Glycol 3350 17 Gm Packet) 17 gm GT DAILY [facility] Last Admin: 05/26/20 09:40 Dose: 17 gm Documented by: Senna/Docusate Sodium (Senna/Docusate Sodium 1 Tablet) 2 tablet GT BID PRN PRN PRN Reason: Constipation Sodium Chloride (0.9% Saline Lock 10 Ml Syringe) 10 - 40 ml IV UD PRN PRN Reason: SALINE FLUSH STROKE Vital Signs/Narrative: Vital Signs Temp Pulse Resp BP Pulse Ox 05/26/20 07:44 97.8 F 80 22 H 123/61 H 96 03/20/21 07:19 80 20 H 94 Medical Necessity - Tobacco Use Smoking Status: Former smoker Tobacco Use: Non-smoker Assessment/Plan All Active Problems (Last Reviewed 06/27/19 @ 10:18 by Greer Don) Pneumonia (Acute) Sepsis (Acute) Right kidney stone (Acute) Cellulitis of right arm (Acute) Acute respiratory failure (Acute) COPD exacerbation (Acute) #Acute hypoxic and hypercapnic respiratory failure due to aspiration pneumonia on 3-4L of oxygen has PEG tube in place on IV unasyn blood cultures growing Staph aureus,a s well as urine culutre will start on IV vancomycin get 2D echo consult ID titrate oxygen to maintain sats >90% #Sepsis due to Aspiration pneumonia and UTI: as above. aspiration precautions. #Aspiration pneumonia: as above #UTI: urine culture growing MRSA. started on IV vancomycin #Multiple sclerosis with lower extremity contractures on trilepta, ampyra and cymbalta #Hypertension: on amlodipine and losartan #Nephrolithiasis: urology on board. [facility] conservative management now #Thromobocytosis: Platelets up to 765 today. This is acute. He has had a history of slight thrombocytosis back in 2017. This could be due to infection. Will trend. If remains elevated, will consult hematology. #GERD: on PPI DVT prophylaxis: lovenox \ Inpatient E&M: 04974 Subs Hosp L3
--- NOTE | 2020-05-26 11:23 | ECHOD_ITS ---
Reason For Study: Emboli Procedure This was a 2D Doppler, Color Flow transthoracic echocardiogram. Apical images taken from subcostal window. Exam performed portable in patient room. Left Ventricle Normal left ventricle. The estimated ejection fraction is Ef 55-60% %. Right Ventricle Normal right ventricle. Normal systolic function. Atria Normal left atrium. Normal right atrium. Mitral Valve There is mild mitral annular calcification. Tricuspid Valve Normal tricuspid valve. Aortic Valve Normal aortic valve. Pulmonic Valve The pulmonic valve is not well visualized. Great Vessels Normal aortic root. Pericardium/Pleural No pericardial effusion. MMode/2D Measurements & Calculations LVIDd: 4.1 cm IVSd: 0.99 cm LAV(MOD-sp4): 16.4 ml LVIDs: 3.1 cm LVPWd: 0.90 cm RVDd: 4.8 cm FS: 23.6 % LA A4 area: 10.4 cm2 RA A4 area: 20.4 cm2 Time Measurements MV dec time: 0.29 sec Doppler Measurements & Calculations MV E max octavio: 64.7 cm/sec Lat Peak E' Octavio: 8.1 cm/sec Med Peak E' Octavio: 12.5 cm/sec MV A max octavio: 77.6 cm/sec E/E' lat: 8.0 E/E' med: 5.2 MV E/A: 0.83 MV V2 max: 85.7 cm/sec MV P1/2t max octavio: 78.2 cm/sec PA V2 max: 138.0 cm/sec MV max P.9 mmHg MV P1/2t: 75.4 msec MV V2 mean: 49.7 cm/sec MV dec slope: 304.1 cm/sec2 MV mean P.2 mmHg MVA(P1/2t): 2.9 cm2 MV V2 VTI: 23.6 cm TR max octavio: 325.6 cm/sec TR max P.4 mmHg Interpretation Summary Normal LV systolic function The estimated ejection fraction is Ef 55-60% No prior echo to compare Ordering Physician: Rosanna Morgan Referring Physician: Mario Giraldo Performed By: Errol Faustin RCS
--- NOTE | 2020-05-26 16:11 | PCM.RX.CS ---
Consult Pharmacy has been consulted to manage selected antiobiotic: Vancomycin Type of Consult: New start Prior Doses of Antibiotics Received/Current Regimen: Medications Vancomycin HCl 1,500 mg/ (Sodium Chloride) 530 mls @ 250 mls/hr IV X1 ONE Stop: 05/26/20 14:37 Last Admin: 05/26/20 12:42 Dose: 250 mls/hr Documented by: Labs: Sodium 143 mmol/L (136-145) 05/26/20 05:35 Potassium 3.7 mmol/L (3.5-5.1) 05/26/20 05:35 Chloride 102 mmol/L (98-107) 05/26/20 05:35 Carbon Dioxide 38.0 mmol/L (21.0-32.0) H 05/26/20 05:35 Anion Gap 3 (5-15) L 05/26/20 05:35 BUN 23 mg/dL (7-18) H 05/26/20 05:35 Creatinine 0.68 mg/dL (0.70-1.30) L 05/26/20 05:35 Est GFR (MDRD) Af Amer 147 mL/min (>60) 05/26/20 05:35 Est GFR (MDRD) Non-Af 121 mL/min (>60) 05/26/20 05:35 BUN/Creatinine Ratio 33.8 RATIO (10-20) H 05/26/20 05:35 Glucose 84 mg/dL (74-106) 05/26/20 05:35 Microbiology: Microbiology 05/24/20 14:16 Urine, Catheterized Urine Culture - Final Meth. resistant Staph. aureus 05/24/20 15:25 Blood Culture (Wb) - Left Forearm Blood Culture - Preliminary Staphylococcus aureus 05/24/20 15:25 Blood Culture (Wb) - Anticubital Left Blood Culture - Preliminary Staphylococcus aureus Weight used for dosin kg Goal Trough: 15-20 mcg/mL Pharmacy Plan for Drug Dosing: Initial dose 1500mg IV x1, 500mg IV q12h with trough prior to 4th dose per policy. Pharmacy Service will continue to monitor and adjust dosing as required. Follow-Up Labs: Trough Vancomycin - 05/28 @ 0030
[2020-05-27] VITALS (18 sets, daily range): BP systolic 138–158; BP diastolic 66–80; PULSE 72–92; RESP 12–23; TEMP 36.6–37.1; O2SAT 94–97; BMI 17.4
[2020-05-27] MEDS: Vancomycin IV 500 MG/100 ML BAG 100 MG IV ×2 (00:32→12:39)
[2020-05-27] MEDS: Acetaminophen 650 MG/20 ML UDC GT ×3 (00:52→17:26)
[2020-05-27 05:14] LABS: Absolute Lymphocyte Count 1.19 X10^3/uL (0.83-4.51); Absolute Neutrophil Count 16.3 X10^3/uL (2.0-7.7); Basophil# 0.04 X10^3/uL; Basophil% 0.2 % (0-1); Eosinophil# 0.18 X10^3/uL; Eosinophils% 0.9 % (0-5); Hematocrit 28.3 % (40-54); Hemoglobin 8.4 g/dL (13.0-16.5); Lymphocyte # 1.19 X10^3/ul (4.0); Lymphocyte % 6.3 % (19-41); Mean Corp Hgb Conc 29.7 g/dL (32-36); Mean Corpuscular Volume 94.3 fL (80-94); Mean Platelet Vol. 11.1 fl (6.2-12.0); Monocyte# 1.15 X10^3/uL; NRBC Flagged by Analyzer 0 % (0-5); Neutrophil # 16.25 X10^3/uL (2.7-7.7); Neutrophil % 85.5 % (47-70); POSITIVE COUNT YES; RBC Distribution Width CV 17.9 % (11.6-14.6)
[2020-05-27 05:17] LABS: Differential Indicated SCAN CRITERIA MET; Platelet Count 775 K/mm3 (150-450)
[2020-05-27] MEDS: Menthol/Lanolin/Calamine/Znox 113 GM Tube 1 APPLIC TOPICAL ×3 (06:02→21:02)
[2020-05-27] MEDS: OXcarbazepine 300 MG Tablet GT ×3 (06:03→17:21)
[2020-05-27 06:33] LABS: Anion Gap 3 (5-15); BUN 21 mg/dL (7-18); BUN/Creat Ratio 29.1 RATIO (10-20); Calcium,Total 9.3 mg/dL (8.5-10.1); Chloride 104 mmol/L (98-107); Creatinine, Serum 0.72 mg/dL (0.70-1.30); EST Glomerular Filtration Rate 113 mL/min (>60); Est Glom Filt Rate - Afr Amer 137 mL/min (>60); Estimated Creatinine Clearance 51.88 ml/min; Glucose 83 mg/dL (74-106); Potassium 4.2 mmol/L (3.5-5.1); Sodium Level 141 mmol/L (136-145)
[2020-05-27 06:43] LABS: Differential Comment SCANNED
[2020-05-27 06:44] LABS: Platelet Estimate MKD INC (ADEQ)
[2020-05-27] MEDS: Budesonide Respules 0.5 MG/2 ML AMPUL.NEB. INHALATION (06:48)
[2020-05-27] MEDS: Ipratropium/Albuterol Sulfate 3 ML AMPUL.NEB INHALATION ×4 (06:48→19:50)
[2020-05-27] MEDS: Polyethylene Glycol 3350 17 GM PACKET GT (08:59)
[2020-05-27] MEDS: Multivitamins,Ther W-Minerals Tablet 1 TABLET GT (09:00)
[2020-05-27] MEDS: Calcium Carb/Vitamin D 1 TABLET Tablet GT (09:00)
[2020-05-27] MEDS: amLODIPine 5 MG Tablet GT (09:00)
[2020-05-27] MEDS: Enoxaparin 40 MG/0.4 ML Syringe SC (09:00)
[2020-05-27] MEDS: Lansoprazole 15 MG Capsule.DR 30 MG GT (09:01)
[2020-05-27] MEDS: Losartan Potassium 100 MG Tablet GT (09:01)
[2020-05-27] MEDS: Vitamin B Comp W-C Capsule 1 CAP GT (09:01)
[2020-05-27 09:36] LABS: BNP,B-Type NATRIURETIC PEPTIDE 152.2 pg/mL (0-100)
[2020-05-27] MEDS: Furosemide 40 MG/4 ML Vial IV (09:40)
[2020-05-27] MEDS: 0.9% Saline Lock 10 ML Syringe IV (09:50)
--- NOTE | 2020-05-27 10:21 | PN_ITS ---
Patient Problems: Active and Suspected Problems (Last Reviewed 06/27/19 @ 10:18 by Greer Don) Pneumonia (Acute) Right kidney stone (Acute) Subjective: Patient seen and examined. He was more alert today but not really answering questions. No active events overnight. He remains on 3 L of oxygen. He was evaluated by speech therapy and is now on ice chips. Review of systems otherwise negative. Was started on vancomycin yesterday on account of blood cultures growing staph. Vitals/I&O's: Vital Signs Temp Pulse Resp BP Pulse Ox 97.8 F 90 20 H 139/66 H 96 05/27/20 09:07 05/27/20 09:56 05/27/20 09:07 05/27/20 09:07 05/27/20 09:07 Oxygen Flow Rate (L/min) 3 Oxygen Delivery Method Nasal Cannula Weight: 124 lb 12.506 oz Body Mass Index (BMI) 17.1 Intake and Output for Last 24 Hours 05/25/20 05/26/20 05/27/20 23:59 23:59 23:59 Intake Total 1742.25 / 1862.25 1874 / 1874 617.50 / 617.50 Output Total 100 / 100 150 / 150 Balance 1642.25 / 1762.25 1724 / 1724 617.50 / 617.50 General: No apparent distress, Lethargic HEENT: Atraumatic, PERRLA, EOMI, Normocephalic Oral: Moist Mucosa Neck: Supple, No JVD Lungs: rhonchi and coarse crackles in all lung osborn bilaterally, Cardiovascular: Regular rate, Regular Rhythm, Normal S1, Normal S2, No murmurs Abdomen: Soft, Non Tender, Non-Distended, No Hepato-splenomegaly Extremities: Capillary Refill Less than 3 Seconds, Edema Skin: - - Redness over his coccyx Musculoskeletal: Cachexia - Temporal wasting, - - Lower extremity contractures Neurological: - - Lower extremity contractures with chronic weakness of his uppe r extremities 3 out of 5. Psych/Mental Status:flat affect Microbiology Past 72 Hours 05/24/20 15:25 Blood Culture (Wb) - Left Forearm Blood Culture - Preliminary Staphylococcus aureus 05/24/20 15:25 Blood Culture (Wb) - Anticubital Left Blood Culture - Final Meth. resistant Staph. aureus 05/24/20 14:16 Urine, Catheterized Urine Culture - Final Meth. resistant Staph. aureus Laboratory Results 05/26/20 10:00: Urine Opiates Screen NEGATIVE, Urine Methadone Screen NEGATIVE, Ur Barbiturates Screen NEGATIVE, Ur Phencyclidine Scrn NEGATIVE, Ur Amphetamines Screen NEGATIVE, U Methamphetamin-MDMA NEGATIVE, U Benzodiazepines Scrn NEGATIVE, Urine Cocaine Screen NEGATIVE, U Cannabinoids Screen POSITIVE H 05/27/20 04:40: WBC 19.0 H, RBC 3.00 L, Hgb 8.4 L, Hct 28.3 L, MCV 94.3 H, MCH 28.0, MCHC 29.7 L, RDW Std Deviation 62.0 H, RDW Coeff of Ivelisse 17.9 H, Plt Count 775 H*, MPV 11.1, Immature Gran % (Auto) 1.100 H, Neut % (Auto) 85.5 H, Lymph % (Auto) 6.3 L, [place] % (Auto) 6.0, Eos % (Auto) 0.9, Baso % (Auto) 0.2, Absolute Neuts (auto) 16.3 H, Absolute Lymphs (auto) 1.19, Nucleated RBC % 0, Differenti al Comment SCANNED, Diff Path Review July jenaro, Platelet Estimate MKD INC 05/27/20 04:40: Sodium 141, Potassium 4.2, Chloride 104, Carbon Dioxide 34.0 H, Anion Gap 3 L, BUN 21 H, Creatinine 0.72, Estim Creat Clear Calc 51.88, Est GFR (MDRD) Af Amer 137, Est GFR (MDRD) Non-Af 113, BUN/Creatinine Ratio 29.1 H, Glucose 83, Calcium 9.3 05/27/20 04:40: B-Natriuretic Peptide 152.2 H Current Medications Acetaminophen (Acetaminophen 650 Mg/20 Ml Udc) 650 mg GT Q6H PRN PRN PRN Reason: Pain Score 1-10/Temp > 100.7 F Last Admin: 05/27/20 10:07 Dose: 650 mg Documented by: Al Hydroxide/Mg Hydroxide (Mag Hydrox/Al Hydrox/Simeth 30 Ml Udc) 30 ml GT Q6H PRN PRN PRN Reason: Gastric Burning Albuterol/Ipratropium (Ipratropium/Albuterol Sulfate 3 Ml Ampul.Neb) 3 ml INHALATION Q4HWA.RT [facility] Last Admin: 05/27/20 06:48 Dose: 3 ml Documented by: Amlodipine Besylate (Amlodipine 5 Mg Tablet) 5 mg GT DAILY [facility] Last Admin: 05/27/20 09:00 Dose: 5 mg Documented by: Budesonide (Budesonide Respules 0.5 Mg/2 Ml Ampul.Neb.) 0.5 mg INHALATION DAILY.RT [facility] Last Admin: 05/27/20 06:48 Dose: 0.5 mg Documented by: Calamine/Phenol (Menthol/Lanolin/Calamine/Znox 113 Gm Tube) 1 applic TOPICAL TID [facility]; Protocol Last Admin: 05/27/20 06:02 Dose: 1 applic Documented by: Calcium/Vitamin D (Calcium Carb/Vitamin D 1 Tablet Tablet) 1 tablet GT BIDCM [facility] Last Admin: 05/27/20 09:00 Dose: 1 tablet Documented by: Enoxaparin Sodium (Enoxaparin 40 Mg/0.4 Ml Syringe) 40 mg SC DAILY [facility] Last Admin: 05/27/20 09:00 Dose: 40 mg Documented by: Furosemide (Furosemide 40 Mg/4 Ml Vial) 40 mg IV X1 [facility] Stop: 05/27/20 23:59 Last Admin: 05/27/20 09:40 Dose: 40 mg Documented by: Ampicillin Sodium/Sulbactam (Sodium 3 gm/ Sodium Chloride) 112 mls @ 150 mls/hr IV Q8 [facility] Last Infusion: 05/27/20 06:48 Dose: Infused Documented by: Vancomycin IV Pharmacy to Dose (1 ea/ Sodium Chloride) 500 mls @ 250 mls/hr IV X1 PRN; Protocol PRN Reason: Rx to Dose Vancomycin HCl () 500 mg in 100 mls @ 100 mls/hr IV Q12H [facility] Last Infusion: 05/27/20 01:32 Dose: Infused Documented by: Sodium Chloride () 250 mls @ 15 mls/hr IV .[id number] PRN PRN Reason: Saline Flush Last Infusion: 05/27/20 06:48 Dose: 15 mls/hr Documented by: Sodium Chloride () 250 mls @ 15 mls/hr IV .[id number] PRN PRN Reason: Additional IVPB Infusion Lactobacillus Acidophilus (Lactobacillus Acidophilus) 2 tablet GT 4X/DAY [facility] Last Admin: 05/27/20 09:00 Dose: 2 tablet Documented by: Lansoprazole (Lansoprazole 15 Mg Capsule.) 30 mg GT DAILY [facility] Last Admin: 05/27/20 09:01 Dose: 30 mg Documented by: Losartan Potassium (Losartan Potassium 100 Mg Tablet) 100 mg GT DAILY [facility] Last Admin: 05/27/20 09:01 Dose: 100 mg Documented by: Multivitamins (Vitamin B Comp W-C Capsule) 1 capsule GT DAILY [facility] Last Admin: 05/27/20 09:01 Dose: 1 capsule Documented by: Multivitamins/Minerals (Multivitamins,Ther W-Minerals Tablet) 1 tablet GT DAILY@0800 [facility] Last Admin: 05/27/20 09:00 Dose: 1 tablet Documented by: Non-Formulary Medication (Dalfampridine) 10 mg PO DAILY [facility] Ondansetron HCl (Ondansetron 4 Mg/2 Ml Vial) 4 mg IV Q8H PRN PRN PRN Reason: NAUSEA/VOMITING Oxcarbazepine (Oxcarbazepine 300 Mg Tablet) 300 mg GT 0600,1200,1800 [facility] Last Admin: 05/27/20 06:03 Dose: 300 mg Documented by: Polyethylene Glycol (Polyethylene Glycol 3350 17 Gm Packet) 17 gm GT DAILY [facility] Last Admin: 05/27/20 08:59 Dose: 17 gm Documented by: Senna/Docusate Sodium (Senna/Docusate Sodium 1 Tablet) 2 tablet GT BID PRN PRN PRN Reason: Constipation Sodium Chloride (0.9% Saline Lock 10 Ml Syringe) 10 - 40 ml IV UD PRN PRN Reason: SALINE FLUSH Last Admin: 05/27/20 09:50 Dose: 20 ml Documented by: STROKE Vital Signs/Narrative: Vital Signs Temp Pulse Resp BP Pulse Ox 05/27/20 09:56 90 05/27/20 09:07 97.8 F 92 20 H 139/66 H 96 05/27/20 06:49 76 20 H 97 Medical Necessity - Tobacco Use Smoking Status: Former smoker Tobacco Use: Non-smoker Assessment/Plan All Active Problems (Last Reviewed 06/27/19 @ 10:18 by Greer Don) Pneumonia (Acute) Sepsis (Acute) Right kidney stone (Acute) Cellulitis of right arm (Acute) Acute respiratory failure (Acute) COPD exacerbation (Acute) #Acute hypoxic and hypercapnic respiratory failure due to aspiration pneumonia * on3L of oxygen which is his baseline * has PEG tube in place. bit was having oral intake at home * has coarse crackles in all lung osborn today * blood cultures growing MRSA * on IV vancomycin and IV unasyn * will get CXR * ID consulted * get 2D echo o/a of MRSA bacteremia * titrate oxygen to maintain sats >90% * * #Sepsis due to Aspiration pneumonia and UTI: as above. aspiration precautions. #Aspiration pneumonia: as above. speech therapy on board #UTI: urine culture growing MRSA. started on IV vancomycin #Multiple sclerosis with lower extremity contractures * on trilepta, ampyra and cymbalta #Hypertension: on amlodipine and losartan #Nephrolithiasis: urology on board. Advocate conservative management now #Thromobocytosis: * Platelets up to 775 today. This is acute. He has had a history of slight thrombocytosis back in 2017. * This could be due to infection. * consult hematology * #GERD: on PPI DVT prophylaxis: lovenox Inpatient E&M: [id number] [facility] H[facility] L3
--- NOTE | 2020-05-27 11:06 | RAD_ITS ---
STUDY: X-RAY CHEST REASON FOR EXAM: Male, 75 years old. shortness of breath TECHNIQUE: Single AP portable view of the chest. COMPARISON: 05/25/2020 FINDINGS: No change in the alveolar opacity in the lower right lung consistent with right lower lobe pneumonia. There is no demonstrated pleural abnormality. Normal size heart. Normal mediastinum and rodriguez. Normal visualized pulmonary arteries. Normal visualized aortic arch and descending thoracic aorta. Normal visualized thoracic spine. Normal visualized ribs, clavicles, and shoulders. There is no demonstrated abnormality of the visualized soft tissue structures of the upper abdomen. RAD/Chest 1 View IMPRESSION: No change in right lower lobe pneumonia. Electronically Signed: Aleksandar Matias MD at 11:55 EDT Tel , Service support ,
--- NOTE | 2020-05-27 12:18 | NURSING ---
came in,had many questions, including peg tube feeding, was notified, and pt was informed that Dr. Morgan would come up and talk to her. states pt is doing better holding his head up and is stronger. She noted that the Mepilex patch from buttocks was removed and Calmoseptine was being used. She requested to see his buttocks, which was granted, when he was repositioned to his left side. She stated she can't see anything since Calmoseptine was applied. States she has pictures of his buttocks at home, she was informed that photos were taken here when pt came to hospital. Nurse provided ice chips for pt., call light in reach. Deny any other needs.
--- NOTE | 2020-05-27 14:04 | NT.THERAPY_ITS ---
Nutrition Therapy Report - History Nutrition Services has been consulted to:: Manage enteral nutrition Current diet / nutrition support order:: NPO x day #4 today - Anthropometric Measurements Height:: 5 ft 11 in Weight:: 56.6 kg Body Mass Index (BMI):: 17.4 - Relevant Labs Relevant Labs:: WBC 19.0 K/mm3 (4.4-11.0) H 05/27/20 04:40 RBC 3.00 M/mm3 (4.6-6.2) L 05/27/20 04:40 Hgb 8.4 g/dL (13.0-16.5) L 05/27/20 04:40 Hct 28.3 % (40-54) L 05/27/20 04:40 MCV 94.3 fL (80-94) H 05/27/20 04:40 MCHC 29.7 g/dL (32-36) L 05/27/20 04:40 RDW Std Deviation 62.0 fl (35.1-43.9) H 05/27/20 04:40 RDW Coeff of Ivelisse 17.9 % (11.6-14.6) H 05/27/20 04:40 Plt Count 775 K/mm3 (150-450) H* 05/27/20 04:40 Immature Gran % (Auto) 1.100 % (0.0-0.9) H 05/27/20 04:40 Neut % (Auto) 85.5 % (47-70) H 05/27/20 04:40 Lymph % (Auto) 6.3 % (19-41) L 05/27/20 04:40 Absolute Neuts (auto) 16.3 X10^3/uL (2.0-7.7) H 05/27/20 04:40 Carbon Dioxide 34.0 mmol/L (21.0-32.0) H 05/27/20 04:40 Anion Gap 3 (5-15) L 05/27/20 04:40 BUN 21 mg/dL (7-18) H 05/27/20 04:40 Creatinine 0.68 mg/dL (0.70-1.30) L 05/26/20 05:35 BUN/Creatinine Ratio 29.1 RATIO (10-20) H 05/27/20 04:40 Glucose 136 mg/dL (74-106) H 05/24/20 13:13 AST 42 U/L (15-37) H 05/24/20 13:13 Alkaline Phosphatase 134 U/L (45-117) H 05/25/20 06:35 B-Natriuretic Peptide 152.2 pg/mL (0-100) H 05/27/20 04:40 Albumin 1.9 g/dL (3.2-5.0) L 05/25/20 06:35 Globulin 4.7 g/dL (2.2-4.2) H 05/25/20 06:35 Albumin/Globulin Ratio 0.4 RATIO (0.9-2.4) L 05/25/20 06:35 - Assessment Food / Nutrition-Related History:: Pt seen by [facility] [employer] today and pt remains NPO; Wt down ~1 Kg since yesterday and pt remains NPO; Pt with pressure injuries requiring nutrition to prevent further injury. Plan is to start TF support via PEG tube today per Dr. Morgan's orders. 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 Evidence of Malnutrition Exists:: Yes Severe PCM:: Chronic Illness - Nutrition Intervention Nutrition Prescription:: Estimated nutrition needs~4684-8494 calories (30 kcal/Kg) and. ~70-80 gm protein (1.3 gm pro/Kg) per day. Estimated fluid needs~7330-0356 ml fluid per day (1ml/kcal). - Food / Nutrient Delivery Interventions Summary of nutrition intervention:: Per Dr. Morgan's orders---start TF support via PEG tube; will order Jevity 1.5 Eulogio to start @ 20ml/hr and increase rate as tolerated by 10ml/hr Q 6-8 hours to goal rate 50 ml/hr. Flush with 150 ml water Q 4 hours. TF at goal rate and flushes will provide 1800 kcal, 77 gm protein and 1812 ml free water per day. Rec enteral nutrition support for nutrition--pt with severe chronic malnutrition, pressure injury, dysphagia and PO remains contraindicated at this time; pt is unable to meet estimated energy needs via PO diet. Monitor daily weights, TF residuals/tolerance and follow-up with [facility] recs regarding PO diet safety. Nutrition support ordered as / adjusted to:: Jevity 1.5 Eulogio to start @ 20ml/hr and increase rate as tolerated by 10ml/hr Q 6-8 hours to goal rate 50 ml/hr. Flush with 150 ml water Q 4 hours. TF at goal rate and flushes will provide 1800 kcal, 77 gm protein and 1812 ml free water per day. Nutrition education provided?: No - MNT Monitoring Further MNT monitoring and evaluation required?: Yes MNT Follow-up in:: 1-2 days
--- NOTE | 2020-05-27 14:30 | NURSING ---
Talked to Ed, the pharmacist,notified him pt is allergy to lactose, and nutritional supplements. States is is only diarrhea and if he has an issue to talk to the clerical adjuster.
[2020-05-27] MEDS: Jevity 1.5 1,000 ML 50 ML GT (15:21)
--- NOTE | 2020-05-27 23:09 | NURSING ---
went in pt room, bipap machine was beeping, tried to fix his bipap because it was leaking air. pt states I'm done I don't want it anymore. put pt on 2LNC. made RT aware pt refusing bipap tonight.
--- NOTE | 2020-05-27 23:15 | CPS ---
Addendum entered by Silver Lee 05/28/20 05:12: pt placed on 3 lpm nasal cannula. Original Note: pt not tolerating BIPAP, nursing removed mask and placed pt on 2 lpm Nasal cannula
[2020-05-28] VITALS (12 sets, daily range): BP systolic 144–170; BP diastolic 62–95; PULSE 74–94; RESP 12–29; TEMP 36.9–37.7; O2SAT 94–100
[2020-05-28 00:51] LABS: Vancomycin, Trough Level 12.6 ug/mL (5.0-15.0)
[2020-05-28] MEDS: Vancomycin IV 500 MG/100 ML BAG 100 MG IV (01:02)
--- NOTE | 2020-05-28 01:58 | PHA.PHARE_ITS ---
Consult Pharmacy has been consulted to manage selected antiobiotic: Vancomycin Type of Consult: Follow-up Suspected Infection: Pneumonia Prior Doses of Antibiotics Received/Current Regimen: Medications Vancomycin HCl () 500 mg in 100 mls @ 100 mls/hr IV Q12H [facility] Stop: 05/28/20 02:15 Last Admin: 05/28/20 01:02 Dose: 100 mls/hr Vancomycin HCl 750 mg/ Sodium (Chloride) 265 mls @ 250 mls/hr IV Q12H [facility] Labs: Sodium 141 mmol/L (136-145) 05/27/20 04:40 Potassium 4.2 mmol/L (3.5-5.1) 05/27/20 04:40 Chloride 104 mmol/L (98-107) 05/27/20 04:40 Carbon Dioxide 34.0 mmol/L (21.0-32.0) H 05/27/20 04:40 Anion Gap 3 (5-15) L 05/27/20 04:40 BUN 21 mg/dL (7-18) H 05/27/20 04:40 Creatinine 0.72 mg/dL (0.70-1.30) 05/27/20 04:40 Est GFR (MDRD) Af Amer 137 mL/min (>60) 05/27/20 04:40 Est GFR (MDRD) Non-Af 113 mL/min (>60) 05/27/20 04:40 BUN/Creatinine Ratio 29.1 RATIO (10-20) H 05/27/20 04:40 Glucose 83 mg/dL (74-106) 05/27/20 04:40 Vancomycin Trough 12.6 ug/mL (5.0-15.0) 05/28/20 00:25 Microbiology: Microbiology 05/24/20 15:25 Blood Culture (Wb) - Left Forearm Blood Culture - Preliminary Staphylococcus aureus 05/24/20 15:25 Blood Culture (Wb) - Anticubital Left Blood Culture - Final Meth. resistant Staph. aureus 05/24/20 14:16 Urine, Catheterized Urine Culture - Final Meth. resistant Staph. aureus Weight used for dosin.6 kg Estimated Creatinine Clearance: 52 Goal Trough: 15-20 mcg/mL Pharmacy Plan for Drug Dosing: Vancomycin trough level of 12.6 was below target range of 15-20. Will increase dose to 750mg q12h and re-draw trough prior to 4th dose of new regimen. Pharmacy Service will continue to monitor and adjust dosing as required. Follow-Up Labs: Trough Vancomycin Labs to be done on [date and time ordered]: 05/30/20 @0030
[2020-05-28] MEDS: OXcarbazepine 300 MG Tablet GT ×3 (05:30→17:35)
[2020-05-28] MEDS: Menthol/Lanolin/Calamine/Znox 113 GM Tube 1 APPLIC TOPICAL ×3 (05:36→23:36)
[2020-05-28 06:08] LABS: Absolute Neutrophil Count 10.7 X10^3/uL (2.0-7.7); Basophil# 0.01 X10^3/uL; Basophil% 0.1 % (0-1); Eosinophil# 0.18 X10^3/uL; Eosinophils% 1.4 % (0-5); Hematocrit 27.4 % (40-54); Hemoglobin 8.4 g/dL (13.0-16.5); Lymphocyte % 6.3 % (19-41); Mean Corp Hgb Conc 30.7 g/dL (32-36); Mean Corpuscular Hgb 29.9 pg (27.0-32.0); Mean Corpuscular Volume 97.5 fL (80-94); Mean Platelet Vol. 10.5 fl (6.2-12.0); Monocyte% 6.3 % (0-10); NRBC Flagged by Analyzer 0 % (0-5); Neutrophil # 10.73 X10^3/uL (2.7-7.7); Neutrophil % 85.1 % (47-70); POSITIVE MORPHOLOGY YES; Platelet Count 605 K/mm3 (150-450); RBC Distribution Width SD 66.5 fl (35.1-43.9); Red Blood Count 2.81 M/mm3 (4.6-6.2); White Blood Count 12.6 K/mm3 (4.4-11.0)
[2020-05-28 06:11] LABS: Differential Indicated SCAN CRITERIA MET
[2020-05-28] MEDS: Budesonide Respules 0.5 MG/2 ML AMPUL.NEB. INHALATION (06:44)
[2020-05-28] MEDS: Ipratropium/Albuterol Sulfate 3 ML AMPUL.NEB INHALATION ×4 (06:44→19:05)
[2020-05-28 06:55] LABS: Anion Gap 5 (5-15); BUN 22 mg/dL (7-18); BUN/Creat Ratio 31.3 RATIO (10-20); Calcium,Total 8.9 mg/dL (8.5-10.1); Chloride 99 mmol/L (98-107); EST Glomerular Filtration Rate 117 mL/min (>60); Est Glom Filt Rate - Afr Amer 141 mL/min (>60); Estimated Creatinine Clearance 51.97 ml/min; Glucose 125 mg/dL (74-106); Potassium 3.3 mmol/L (3.5-5.1); Sodium Level 140 mmol/L (136-145)
--- NOTE | 2020-05-28 07:45 | PCM.PN.HOSP ---
Patient Problems: Active and Suspected Problems (Last Reviewed 06/27/19 @ 10:18 by Greer Don) Pneumonia (Acute) Right kidney stone (Acute) Subjective: Patient seen and examined. THere were no active events overnight, review of systems otherwise negative. He was started on tube feeds via PEG tube yesterday. He is on 3L of oxygen. WBC is down to 12.6. Vitals/I&O's: Vital Signs Temp Pulse Resp BP Pulse Ox 98.5 F 80 22 H 144/74 H 100 05/28/20 02:15 05/28/20 06:44 05/28/20 06:44 05/28/20 02:15 05/28/20 06:44 Oxygen Flow Rate (L/min) 3 Oxygen Delivery Method Nasal Cannula Weight: 125 lb Body Mass Index (BMI) 17.4 Intake and Output for Last 24 Hours 05/26/20 05/27/20 05/28/20 23:59 23:59 23:59 Intake Total 1874 / 1874 1300.00 / 1300.00 331 / 331 Output Total 150 / 150 2400 / 2700 525 / 525 Balance 1724 / 1724 -1100.00 / -1400.00 -194 / -194 General: No apparent distress, Lethargic HEENT: Atraumatic, PERRLA, EOMI, Normocephalic Oral: Moist Mucosa Neck: Supple, No JVD Lungs: rhonchi and coarse crackles in all lung osborn bilaterally, on 3L of oxygen Cardiovascular: Regular rate, Regular Rhythm, Normal S1, Normal S2, No murmurs Abdomen: Soft, Non Tender, Non-Distended, No Hepato-splenomegaly Extremities: Capillary Refill Less than 3 Seconds, Edema Skin: - - Redness over his coccyx Musculoskeletal: Cachexia - Temporal wasting, - - Lower extremity contractures Neurological: - - Lower extremity contractures with chronic weakness of his upper extremities 3 out of 5. Psych/Mental Status:flat affect Microbiology Past 72 Hours 05/24/20 15:25 Blood Culture (Wb) - Left Forearm Blood Culture - Preliminary Staphylococcus aureus 05/24/20 15:25 Blood Culture (Wb) - Anticubital Left Blood Culture - Final Meth. resistant Staph. aureus 05/24/20 14:16 Urine, Catheterized Urine Culture - Final Meth. resistant Staph. aureus Laboratory Results 05/27/20 04:40: B-Natriuretic Peptide 152.2 H 05/28/20 00:25: Vancomycin Trough 12.6 05/28/20 05:50: WBC 12.6 H, RBC 2.81 L, Hgb 8.4 L, Hct 27.4 L, MCV 97.5 H, MCH 29.9, MCHC 30.7 L, RDW Std Deviation 66.5 H, RDW Coeff of Ivelisse 20.0 H, Plt Count 605 H, MPV 10.5, Immature Gran % (Auto) 0.800, Neut % (Auto) 85.1 H, Lymph % (Auto) 6.3 L, Ward % (Auto) 6.3, Eos % (Auto) 1.4, Baso % (Auto) 0.1, Absolute Neuts (auto) 10.7 H, Absolute Lymphs (auto) 0.80 L, Nucleated RBC % 0 05/28/20 05:50: Sodium 140, Potassium 3.3 L, Chloride 99, Carbon Dioxide 36.0 H, Anion Gap 5, BUN 22 H, Creatinine 0.70, Estim Creat Clear Calc 51.97, Est GFR (MDRD) Af Amer 141, Est GFR (MDRD) Non-Af 117, BUN/Creatinine Ratio 31.3 H, Glucose 125 H, Calcium 8.9 Current Medications Acetaminophen (Acetaminophen 650 Mg/20 Ml Udc) 650 mg GT Q6H PRN PRN PRN Reason: Pain Score 1-10/Temp > 100.7 F Last Admin: 05/27/20 17:26 Dose: 650 mg Documented by: Al Hydroxide/Mg Hydroxide (Mag Hydrox/Al Hydrox/Simeth 30 Ml Udc) 30 ml GT Q6H PRN PRN PRN Reason: Gastric Burning Albuterol/Ipratropium (Ipratropium/Albuterol Sulfate 3 Ml Ampul.Neb) 3 ml INHALATION Q4HWA.RT [facility] Last Admin: 05/28/20 06:44 Dose: 3 ml Documented by: Amlodipine Besylate (Amlodipine 5 Mg Tablet) 5 mg GT DAILY [facility] Last Admin: 05/27/20 09:00 Dose: 5 mg Documented by: Budesonide (Budesonide Respules 0.5 Mg/2 Ml Ampul.Neb.) 0.5 mg INHALATION DAILY.RT [facility] Last Admin: 05/28/20 06:44 Dose: 0.5 mg Documented by: Calamine/Phenol (Menthol/Lanolin/Calamine/Znox 113 Gm Tube) 1 applic TOPICAL TID [facility]; Protocol Last Admin: 05/28/20 05:36 Dose: 1 applic Documented by: Enoxaparin Sodium (Enoxaparin 40 Mg/0.4 Ml Syringe) 40 mg SC DAILY [facility] Last Admin: 05/27/20 09:00 Dose: 40 mg Documented by: Ampicillin Sodium/Sulbactam (Sodium 3 gm/ Sodium Chloride) 112 mls @ 150 mls/hr IV Q8 [facility] Last Infusion: 05/28/20 06:15 Dose: Infused Documented by: Vancomycin IV Pharmacy to Dose (1 ea/ Sodium Chloride) 500 mls @ 250 mls/hr IV X1 PRN; Protocol PRN Reason: Rx to Dose Sodium Chloride () 250 mls @ 15 mls/hr IV .[id number] PRN PRN Reason: Saline Flush Last Infusion: 05/28/20 06:15 Dose: 15 mls/hr Documented by: Sodium Chloride () 250 mls @ 15 mls/hr IV .[id number] PRN PRN Reason: Additional IVPB Infusion Enteral Nutritional Formula (Jevity 1.5) 1,000 mls @ 50 mls/hr GT .Q20H [facility] Last Admin: 05/27/20 15:21 Dose: 50 mls/hr Documented by: Vancomycin HCl 750 mg/ Sodium (Chloride) 265 mls @ 250 mls/hr IV Q12H [facility] Potassium Chloride () 10 meq in 100 mls @ 100 mls/hr IV BOLUS Q1H [facility] Stop: 05/28/20 11:29 Lactobacillus Acidophilus (Lactobacillus Acidophilus) 2 tablet GT 4X/DAY [facility] Last Admin: 05/27/20 21:03 Dose: 2 tablet Documented by: Lansoprazole (Lansoprazole 15 Mg Capsule.Dr) 30 mg GT DAILY [facility] Last Admin: 05/27/20 09:01 Dose: 30 mg Documented by: Losartan Potassium (Losartan Potassium 100 Mg Tablet) 100 mg GT DAILY [facility] Last Admin: 05/27/20 09:01 Dose: 100 mg Documented by: Non-Formulary Medication (Dalfampridine) 10 mg PO DAILY [facility] Ondansetron HCl (Ondansetron 4 Mg/2 Ml Vial) 4 mg IV Q8H PRN PRN PRN Reason: NAUSEA/VOMITING Oxcarbazepine (Oxcarbazepine 300 Mg Tablet) 300 mg GT 0600,1200,1800 [facility] Last Admin: 05/28/20 05:30 Dose: 300 mg Documented by: Polyethylene Glycol (Polyethylene Glycol 3350 17 Gm Packet) 17 gm GT DAILY [facility] Last Admin: 05/27/20 08:59 Dose: 17 gm Documented by: Senna/Docusate Sodium (Senna/Docusate Sodium 1 Tablet) 2 tablet GT BID PRN PRN PRN Reason: Constipation Sodium Chloride (0.9% Saline Lock 10 Ml Syringe) 10 - 40 ml IV UD PRN PRN Reason: SALINE FLUSH Last Admin: 05/27/20 09:50 Dose: 20 ml Documented by: STROKE Vital Signs/Narrative: Vital Signs Pulse Resp Pulse Ox 05/28/20 06:44 80 22 H 100 05/28/20 04:50 80 22 H 100 Medical Necessity - Tobacco Use Smoking Status: Former smoker Tobacco Use: Non-smoker Assessment/Plan All Active Problems (Last Reviewed 06/27/19 @ 10:18 by Greer Don) Pneumonia (Acute) Sepsis (Acute) Right kidney stone (Acute) Cellulitis of right arm (Acute) Acute respiratory failure (Acute) COPD exacerbation (Acute) #Acute hypoxic and hypercapnic respiratory failure due to aspiration pneumonia on 3L of oxygen which is his baseline has PEG tube in place. blood cultures growing MRSA on IV vancomycin and IV unasyn; unaysn discontinued ID consulted; await rec's get 2D echo o/a of MRSA bacteremia titrate oxygen to maintain sats >90% #Sepsis due to Aspiration pneumonia and UTI: as above. aspiration precautions. #Aspiration pneumonia: as above. speech therapy on board #UTI: urine culture growing MRSA. started on IV vancomycin #Multiple sclerosis with lower extremity contractures on trilepta, ampyra and cymbalta #Hypertension: on amlodipine and losartan #Nephrolithiasis: urology on board. Advocate conservative management now #Thromobocytosis: platelets have trended down to 605. Due to downwards trend, will hold off on hematology consult for now #GERD: on PPI Nutrition: started on tube feeding yesterday. On JEvity. Nutrition on board DVT prophylaxis: lovenox Inpatient E&M: [id number] [facility] Hosp L3
[2020-05-28] MEDS: Potassium Chloride 10mEq/100mL 10 MEQ/100 ML IV.SOLN. 100 MEQ IV BOLUS ×4 (08:33→12:30)
[2020-05-28] MEDS: Losartan Potassium 100 MG Tablet GT (10:07)
[2020-05-28] MEDS: Lansoprazole 15 MG Capsule.DR 30 MG GT (10:07)
[2020-05-28] MEDS: Enoxaparin 40 MG/0.4 ML Syringe SC (10:08)
[2020-05-28] MEDS: amLODIPine 5 MG Tablet GT (10:08)
--- NOTE | 2020-05-28 10:17 | CASEMGMT ---
Pt met criteria for [facility] Palliative Care Screening Tool. agreeable to consult. Referral faxed to Palliative Care. TC to Ros at Palliative Care to make aware of referrals.
--- NOTE | 2020-05-28 11:00 | CASEMGMT ---
ERIN MILLER Assessment: Face to Face with patient for initial transition planning/care coordination assessment. RN ANGELA introduced self and role at [facility], pt voices understanding and consents to assessment. Pt is sitting up in bed in no distress. Pt is A/Ox4 and answers all questions appropriately at this time. Care providers, pharmacy, and demographics verified/updated. came in to room mid assessment. 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 [facility] Insurance:MCR, MMO Prescription Benefit:yes Living Will/DPOA: Pt reports having the forms for LW and DPOA but has not filled them out yet. Denies needs for further information. LNOK: Coco, dtr Unique Living Arrangements:Pt lives with his in a 2 story home. States he has a ramp to enter and has no concerns at home. Pt is I with ADL's. Transportation: Pt drives self. DME/HHC/SNF:Pt does not have DME in the home, denies need for any. Pt has not had any previous HHC or SNF stays. 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 States no concerns with going home at time of dc. Pt states no further concerns/needs. CM to follow for any further dc planning/needs. Advised pt to ask for CM if any further questions/concerns/needs arise, voices understanding. Pt goal: Home Plan: Home with family support.
[2020-05-28] MEDS: Jevity 1.5 1,000 ML 50 ML GT (11:05)
--- NOTE | 2020-05-28 13:48 | CON.PCM_ITS ---
Problem List (1) Sepsis Status: Acute Reason for Consult: bacteremia Consulted by: Dr. Morgan History of Present Illness: The patient is a 75 year old M with MS, chronic schuster, peg, presented 05/24 with 2 weeks of weakness, not feeling well. Admitted for aspiration, uti, kidney stones. Now bcx and ucx with MRSA. On vanc/unasyn. Feeling ok, no new joint pain. No fever currently. Full ROS performed and neg except as noted above. 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) Ulcerative colitis (Chronic) Seizure disorder (Chronic) Depression (Chronic) Physical debility (Chronic) Hypertension (Chronic) COPD (chronic obstructive pulmonary disease) (Chronic) Multiple sclerosis (Chronic) Dysphagia (Chronic) Anemia (Chronic) BPH (benign prostatic hypertrophy) (Chronic) Vitamin D deficiency (Chronic) GERD (gastroesophageal reflux disease) (Chronic) Ulcerative esophagitis (Chronic) Gout (Chronic) Allergies/Adverse Reactions: Allergies hydrochlorothiazide Allergy (Verified 05/24/20 12:05) Unknown lactose-reduced food [From Ensure] Adverse Reaction (Verified 05/24/20 12:05) Diarrhea nutritional supplement,special formulas [From Ensure] Adverse Reaction (Verified 05/24/20 12:05) Diarrhea Home Medications: Ambulatory Orders Medication Instructions Recorded Cholecalciferol (VIT D3) [Vitamin 5,000 unit PO MARCUS 02/20/14 D3] lansoprazole 30 mg capsule,delayed 30 mg PO DAILY 02/19/17 release budesonide 0.5 mg/2 mL suspension 0.5 mg INHALATION QDAY #60 ml 03/25/17 for nebulization Amlodipine [Norvasc] 5 mg PO DAILY 03/25/18 Duloxetine Hcl [Cymbalta] 60 mg PO DAILY 03/25/18 Losartan Potassium [Cozaar] 100 mg PO DAILY 03/25/18 Vitamin B Comp W-C [Allbee W/C 1 cap PO DAILY 03/25/18 Caplet, Thera B Comp/C] Dalfampridine [Ampyra] 10 mg PO DAILY 03/29/18 Calcium Citrate/Vitamin D3 1 ea PO BID 07/30/18 [Calcium Cit 200 mg-D3 125 Unit] Docusate Sodium [Colace] 250 mg PO DAILY 07/30/18 Glatiramer Acetate 40 mg SQ SUTUTH@1000 10/02/18 Polyethylene Glycol 3350 [Miralax] 17 gm PO DAILY 10/04/18 Oxcarbazepine [Trileptal] 300 mg PO 0600,1200,1800 03/09/19 Dronabinol [Marinol] 5 mg PO BID 05/24/20 Ipratropium/Albuterol Sulfate 3 ml INHALATION 4X/DAY 05/24/20 [Duoneb] Multivitamin with Minerals 1 tab PO DAILY 05/24/20 [Multivitamins with Minerals] - Social History SMOKING STATUS:: Former smoker Vital Signs Temp Pulse Resp BP Pulse Ox 99.1 F 74 23 H 157/62 H 96 05/28/20 10:00 05/28/20 11:15 05/28/20 11:15 05/28/20 10:00 05/28/20 10:00 Oxygen Flow Rate (L/min) 3 Oxygen Delivery Method Nasal Cannula Weight: 56.699 kg Body Mass Index (BMI) 17.4 Microbiology Past 72 Hours 05/24/20 15:25 Blood Culture - Preliminary Blood Culture (Wb) - Left Forearm Staphylococcus aureus 05/24/20 15:25 Blood Culture - Final Blood Culture (Wb) - Anticubital Left Meth. resistant Staph. aureus 05/24/20 14:16 Urine Culture - Final Urine, Catheterized Meth. resistant Staph. aureus Laboratory Tests Past 24 Hrs 05/28/20 05/28/20 05/28/20 00:25 05:50 05:50 WBC 12.6 H RBC 2.81 L Hgb 8.4 L Hct 27.4 L MCV 97.5 H MCH 29.9 MCHC 30.7 L RDW Std Deviation 66.5 H RDW Coeff of Ivelisse 20.0 H Plt Count 605 H MPV 10.5 Immature Gran % (Auto) 0.800 Neut % (Auto) 85.1 H Lymph % (Auto) 6.3 L [place] % (Auto) 6.3 Eos % (Auto) 1.4 Baso % (Auto) 0.1 Absolute Neuts (auto) 10.7 H Absolute Lymphs (auto) 0.80 L Nucleated RBC % 0 Sodium 140 Potassium 3.3 L Chloride 99 Carbon Dioxide 36.0 H Anion Gap 5 BUN 22 H Creatinine 0.70 Estim Creat Clear Calc 51.97 Est GFR (MDRD) Af Amer 141 Est GFR (MDRD) Non-Af 117 BUN/Creatinine Ratio 31.3 H Glucose 125 H Calcium 8.9 Vancomycin Trough 12.6 - Other Studies Radiology: [] reviewed Other Studies: [] Route of nutrition/ use of supplements: [] Nutritional Intake: [] IV Site: [] Schuster Catheter: [] - Physical Exam General: Alert - oriented x2, Cooperative, No apparent distress, - - cachectic HEENT: Atraumatic, PERRLA, EOMI Neck: Supple, No Nodes Lungs: Diminished, Rhonchi Cardiovascular: Regular rate, Regular Rhythm Abdomen: Soft, Non Tender, Non-Distended Extremities: No edema Skin: Ulcer/ Wound IV Site: Peripheral, without redness Musculoskeletal: No Tenderness to Palpation of Joints or Extremities Neurological: Cranial nerves II-XII grossly intact - Assessment/Plan Antibiotics: [] Assessment/Plan: [] Active and Suspected Problems (Last Reviewed 06/27/19 @ 10:18 by Greer Don) Pneumonia (Acute) Right kidney stone (Acute) MRSA bacteremia - not clear if urine is source or represents hematogenous spread. CT showed presence of renal stones. TTE neg for veg. Will check repeat bcx. Cont vanc for MRSA coverage, on unasyn for suspected aspiration. Wbc much improved. Will follow, thank you, d/w nursing and Dr. Morgan
[2020-05-28 13:55] LABS: Pathologist Review Reviewed
[2020-05-28 13:55] LABS: Pathologist Review Reviewed
--- NOTE | 2020-05-28 14:15 | CHAPLAIN ---
Type of Pastoral Visit _x__ Initial Visit ___ Follow-up Visit ___ On-call Visit ___ General Patient Visit ___ Spiritual Assessment ___ Family Conference ___ Bereavement ___ Rapid Response ___ Code Blue ___ Other (describe below) Pastoral Care Referral From _x__ Patient ___ Family ___ Nurse ___ Physician ___ Building Associate ___ Willow Machine Tender ___ Other (describe below) Sacrament/Intervention ___ Active listening ___ Anointing ___ Evangelical ___ Bereavement ___ Communion ___ Cecelia exploration ___ ___ Life review _x__ Prayer ___ Reconciliation ___ Sacrament of Sick _x__ Supportive presence ___ Wedding ___ Other (describe below) Pastoral Comments patient has difficulty speaking and moans occasionally; asked pt if he wanted repositioned in bed and he nodded yes; aides came to reposition; RN and Speech Therapists arrived in room and the very brief visit was over; returned to room later and pt could acknowledge remembering this event operations manager but mostly kept eyes closed; offer of presence and support given; offer of prayer and pt nodded yes in approval; prayer; asked pt if he needed anything or if he had any concerns and pt shakes his head no for both questions
--- NOTE | 2020-05-28 14:55 | CASEMGMT ---
LW/Healthcare POA scanned into summary tab of Johanne hood is listed as healthcare POA. CHUYITA Daniels
--- NOTE | 2020-05-28 16:33 | CON.PCM_ITS ---
Problem List (1) Physical debility Status: Chronic (2) Depression Status: Chronic Qualifiers: Depression Type: major depressive disorder Major depression recurrence: unspecified whether recurrent Active/Remission status: remission status unspecified Qualified Code(s): F32.9 - Major depressive disorder, single episode, unspecified (3) Aspiration pneumonia Status: Acute Qualifiers: Aspiration pneumonia type: unspecified Laterality: right Lung location: unspecified part of lung Qualified Code(s): J69.0 - Pneumonitis due to inhalation of food and vomit (4) Sepsis Status: Acute (5) Right kidney stone Status: Acute (6) Presence of externally removable percutaneous endoscopic gastrostomy (PEG) tube Status: Chronic (7) Acute respiratory failure Status: Acute Qualifiers: Respiratory failure complication: hypoxia and hypercapnia Qualified Code(s): J96.01 - Acute respiratory failure with hypoxia; J96.02 - Acute respiratory failure with hypercapnia (8) Ulcerative colitis Status: Chronic (9) Seizure disorder Status: Chronic (10) Hypertension Status: Chronic Qualifiers: Hypertension type: essential hypertension Qualified Code(s): I10 - Essential (primary) hypertension (11) COPD (chronic obstructive pulmonary disease) Status: Chronic Qualifiers: Emphysema type: unspecified (12) Multiple sclerosis Status: Chronic (13) Dysphagia Status: Chronic Qualifiers: Dysphagia type: oropharyngeal phase Qualified Code(s): R13.12 - Dysphagia, oropharyngeal phase (14) Anemia Status: Chronic (15) BPH (benign prostatic hypertrophy) Status: Chronic Qualifiers: Lower urinary tract symptom presence: unspecified whether lower urinary tract symptoms present Qualified Code(s): N40.0 - Benign prostatic hyperplasia without lower urinary tract symptoms (16) Vitamin D deficiency Status: Chronic (17) GERD (gastroesophageal reflux disease) Status: Chronic Qualifiers: Esophagitis presence: esophagitis presence not specified Qualified Code(s): K21.9 - Gastro-esophageal reflux disease without esophagitis (18) Ulcerative esophagitis Status: Chronic (19) Gout Status: Chronic Qualifiers: History of Present Illness Date of Consult: 05/28/20 Reason for Consult: debility, MS Requesting physician: [] Primary care physician: Dr. Mario Giraldo MD - History of Present Illness The patient is a 75 year old M with past medical history as below, presented to the ED 05/24/2020 with reports of progressive weakness over 2-week period and increasing urinary frequency. He was lethargic upon arrival. Patient has multiple sclerosis and is bedridden. He has oropharyngeal dysphagia s/p PEG tube. He lives at home with his , who is his primary caregiver. He takes Trileptal, Ampyra, and Cymbalta for MS with LE contractures. Wears 2 L of oxygen supplementation at home. Testing upon admission, chest x-ray nothing acute, CT abdomen/pelvis showed a right renal pelvis mildly obstructing calculus, bilateral intrarenal calculi, and diffuse bladder wall thickening as well as focal calcification within the bladder wall. Urology, Dr. Ro was consulted. Note states he has a chronic stone in the right kidney, no intervention needed. Signed off case. Patient has remained somewhat lethargic but is starting to become more alert. He was evaluated by speech therapy and is now on ice chips. His blood cultures were growing staph so he was put on IV antibiotics. His lungs developed coarse crackles throughout all osborn so repeat chest x-ray was performed, showed no change in right lower lobe pneumonia. Infectious disease was consulted, also 2D echo ordered secondary to MRSA bacteremia. Echocardiogram showed EF of 55 to 60%, normal LV systolic function. Patient seen and examined. He is lying in bed, appears very cachectic and emaciated. Breathing is labored and tachypneic with respirations in the upper 30s to lower 40s. Vitals at 1515 today BP 158/95, pulse 94, 99.5 ?F, RR 16, 95% on 3 L. There are audible rales. He denies feeling short of breath. Noted to be contracted more so in the lower extremities, but also in the hands. His mouth is very dry and he is asking for ice chips. When given, he he was coughing. Speech therapy is following him. Asked patient if he was able to tolerate BiPAP, he nodded his head yes. However, upon reviewing respiratory therapy notes, it says he was not tolerating BiPAP and he was placed on supplemental oxygen via nasal cannula. Olivares is draining clear yellow urine. He is receiving tube feeds at 30 cc an hour. Aspiration precautions are maintained. Was not sleeping at night, very fatigued. Was not giving him nutrition per . Was using PEG tube for only Miralax at home. DNR-CC. Respiratory is supposed to call if pt refuses the BiPAP, states she has not received a call. No PAP at home. asked him today if he wanted to continue and fight and he said yes. Does chest percussion vest twice daily at home, asked for this to be started a couple of days ago and she is frustrated that things are not getting done as expected. She is tearful and feels pt could be taken care of better, advised her I would talk w/ case management and charge nurse. We discussed of services and moving forward with plan of care, discussed possibly starting steroids as his respiratory rate is up and he is struggling to breathe. States he has done well with steroids in the past. Patient is on Pulmicort nebulizers, so I suspect this is why he is not on oral steroids. I still feel it would be reasonable to give him a 5-day course of systemic steroids. She is frustrated that he has not received his MS injection despite repetitively talking with staff, including pharmacy. She is going to bring up the medication to be verified by the pharmacy so it can be given. 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) Ulcerative colitis (Chronic) Seizure disorder (Chronic) Depression (Chronic) Physical debility (Chronic) Hypertension (Chronic) COPD (chronic obstructive pulmonary disease) (Chronic) Multiple sclerosis (Chronic) Dysphagia (Chronic) Anemia (Chronic) BPH (benign prostatic hypertrophy) (Chronic) Vitamin D deficiency (Chronic) GERD (gastroesophageal reflux disease) (Chronic) Ulcerative esophagitis (Chronic) Gout (Chronic) Surgical History: - - PEG tube, s/p EGD Psychiatric History: Depression Home Medications: Ambulatory Orders Medication Instructions Recorded Cholecalciferol (VIT D3) [Vitamin 5,000 unit PO MARCUS 02/20/14 D3] lansoprazole 30 mg capsule,delayed 30 mg PO DAILY 02/19/17 release budesonide 0.5 mg/2 mL suspension 0.5 mg INHALATION QDAY #60 ml 03/25/17 for nebulization Amlodipine [Norvasc] 5 mg PO DAILY 03/25/18 Duloxetine Hcl [Cymbalta] 60 mg PO DAILY 03/25/18 Losartan Potassium [Cozaar] 100 mg PO DAILY 03/25/18 Vitamin B Comp W-C [Allbee W/C 1 cap PO DAILY 03/25/18 Caplet, Thera B Comp/C] Dalfampridine [Ampyra] 10 mg PO DAILY 03/29/18 Calcium Citrate/Vitamin D3 1 ea PO BID 07/30/18 [Calcium Cit 200 mg-D3 125 Unit] Docusate Sodium [Colace] 250 mg PO DAILY 07/30/18 Glatiramer Acetate 40 mg SQ SUTUTH@1000 10/02/18 Polyethylene Glycol 3350 [Miralax] 17 gm PO DAILY 10/04/18 Oxcarbazepine [Trileptal] 300 mg PO 0600,1200,1800 03/09/19 Dronabinol [Marinol] 5 mg PO BID 05/24/20 Ipratropium/Albuterol Sulfate 3 ml INHALATION 4X/DAY 05/24/20 [Duoneb] Multivitamin with Minerals 1 tab PO DAILY 05/24/20 [Multivitamins with Minerals] Allergies hydrochlorothiazide Allergy (Verified 05/24/20 12:05) Unknown lactose-reduced food [From Ensure] Adverse Reaction (Verified 05/24/20 12:05) Diarrhea nutritional supplement,special formulas [From Ensure] Adverse Reaction (Verified 05/24/20 12:05) Diarrhea Maternal Family History: Family History (Last Reviewed 05/28/20 @ 16:49 by MAURI Johnson) Mother Colon cancer Breast cancer Lung cancer Father CAD (coronary artery disease) Heart disease History Items: Cancer - 70's -breast, colon, lung Paternal Family History: Family History (Last Reviewed 05/28/20 @ 16:49 by MAURI Johnson) Mother Colon cancer Breast cancer Lung cancer Father CAD (coronary artery disease) Heart disease History Items: Heart Disease - age 70's - Social History Lives: Spouse/ Significant Other Smoking Status: Former smoker Tobacco Use: Non-smoker Alcohol: None Drugs: None [facility] Review [facility] Systems Constitutional: Reports: Anorexia, Fever, Weakness, Weight Change, Fatigue. Denies: Chills Eyes: Denies: Vision Change HEENT: Reports: Difficulty Swallowing. Denies: Sinus Congestion, Sore Throat Cardiovascular: Denies: Chest Pain, Light Headedness, Palpitations Respiratory: Reports: Cough, Shortness of breath at rest, Wheezing. Denies: Sputum production Gastrointestinal: Denies: Abdominal Pain, Constipation, Diarrhea, Nausea, Vomiting Genitourinary: Reports: - - Olivares cath Musculoskeletal: Reports: Joint stiffness, Joint swelling, Leg Pain. Denies: Back Pain Skin: Reports: Dryness, Wounds Neurological: Reports: Difficulty swallowing, - - Nonambulatory. Denies: Numbness, Tingling, Tremor Psychiatric: Reports: Depression Hematologic/ Lymphatic: Reports: Anemia Physical Exam General: Cooperative, - - Somewhat lethargic but arousable, conversing. Labored breathing HEENT: Atraumatic, - - Cachectic Oral: Dry Mucosa Neck: Trachea Midline Lungs: - - Very diminished, coarse rales throughout, few expiratory wheezes Cardiovascular: Regular Rhythm, Normal S1, Normal S2, Tachycardic Abdomen: Bowel Sounds Present, Soft, - - Emaciated Extremities: No clubbing, No cyanosis, Edema Skin: Ulcer/ Wound - Ankle, pressure Musculoskeletal: Cachexia, Muscle Wasting Neurological: - - Generalized weakness, lower extremities contracted, hands contracted, very weak overall Psych/Mental Status: Flat Affect Objective: Vital Signs Temp Pulse Resp BP Pulse Ox 99.5 F H 94 16 158/95 H 95 05/28/20 15:17 05/28/20 15:17 05/28/20 15:17 05/28/20 15:17 05/28/20 15:17 Oxygen Flow Rate (L/min) 3 Oxygen Delivery Method Nasal Cannula Weight: 56.699 kg Body Mass Index (BMI) 17.4 Intake and Output for Last 24 Hours 05/26/20 05/27/20 05/28/20 23:59 23:59 23:59 Intake Total 1874 / 1874 1300.00 / 1300.00 622.67 / 622.67 Output Total 150 / 150 2400 / 2700 925 / 925 Balance 1724 / 1724 -1100.00 / -1400.00 -302.33 / -302.33 Microbiology Past 72 Hours 05/24/20 15:25 Blood Culture - Preliminary Blood Culture (Wb) - Left Forearm Staphylococcus aureus 05/24/20 15:25 Blood Culture - Final Blood Culture (Wb) - Anticubital Left Meth. resistant Staph. aureus 05/24/20 14:16 Urine Culture - Final Urine, Catheterized Meth. resistant Staph. aureus Laboratory Tests Past 24 Hrs 05/26/20 05/27/20 05/28/20 05:35 04:40 00:25 WBC RBC Hgb Hct MCV MCH MCHC RDW Std Deviation RDW Coeff of Ivelisse Plt Count MPV Immature Gran % (Auto) Neut % (Auto) Lymph % (Auto) [place] % (Auto) Eos % (Auto) Baso % (Auto) Absolute Neuts (auto) Absolute Lymphs (auto) Nucleated RBC % Diff Path Review Reviewed Reviewed Sodium Potassium Chloride Carbon Dioxide Anion Gap BUN Creatinine Estim Creat Clear Calc Est GFR (MDRD) Af Amer Est GFR (MDRD) Non-Af BUN/Creatinine Ratio Glucose Calcium Vancomycin Trough 12.6 05/28/20 05/28/20 05:50 05:50 WBC 12.6 H RBC 2.81 L Hgb 8.4 L Hct 27.4 L MCV 97.5 H MCH 29.9 MCHC 30.7 L RDW Std Deviation 66.5 H RDW Coeff of Ivelisse 20.0 H Plt Count 605 H MPV 10.5 Immature Gran % (Auto) 0.800 Neut % (Auto) 85.1 H Lymph % (Auto) 6.3 L [place] % (Auto) 6.3 Eos % (Auto) 1.4 Baso % (Auto) 0.1 Absolute Neuts (auto) 10.7 H Absolute Lymphs (auto) 0.80 L Nucleated RBC % 0 [address] Review Sodium 140 Potassium 3.3 L Chloride 99 Carbon Dioxide 36.0 H Anion Gap 5 BUN 22 H Creatinine 0.70 Estim Creat Clear Calc 51.97 Est GFR (MDRD) Af Amer 141 Est GFR (MDRD) Non-Af 117 BUN/Creatinine Ratio 31.3 H Glucose 125 H Calcium 8.9 Vancomycin Trough Assessment/Plan All Active Problems (Last Reviewed 06/27/19 @ 10:18 by Greer Don) Pneumonia (Acute) Sepsis (Acute) Right kidney stone (Acute) Aspiration pneumonia (Acute) Cellulitis of right arm (Acute) Acute respiratory failure (Acute) COPD exacerbation (Acute) 75-year-old male with history of MS and progressive debility, seen today for palliative care consultation. Lives at home with his , who is his sole caregiver. 1. Debility/MS: PT/OT, ST consult in the hospital, he is bedridden at home, uses a gait belt to assist with transfers. His disease process seems to be progressing, we will continue to follow him closely as an outpatient and make adjustments as indicated to assist in improving quality of life. He received his glatiramer injection today. Ampyra is on hold since he is not able to swallow, med is not crushable since ER form. 2. Aspiration pneumonia: Has longstanding history of dysphagia related to neurological disease, now has a PEG tube and feeds started today, had no nutrition for 4 days? Continue w/ST. He is on Pulmicort, however I think he would benefit from a short course of systemic steroids if does not improve. Will reassess in 1-2 days. We will also add vest therapy, does twice daily at home. We will continue to follow as an outpatient to monitor. 3. Renal calculi/sepsis/UC/COPD/chronic respiratory failure/seizure disorder/depression/HTN/anemia/BPH/vitamin D deficiency/GERD/gout: Complicates overall care, management, recovery, and prognosis. Patient will follow up with specialists and primary care for management. Thank you for the opportunity to participate in this patient's care, please do not hesitate to contact [facility] with any further questions or concerns. Palliative direct line is [phone]. We will have RN follow up approximately 3 days after discharge to home and will discuss palliative services further at that time. Greater than 50% of F2F visit dedicated to education and counseling regarding his multiple comorbidities, increasing weakness with new aspiration pneumonia, and discussing palliative care services and overall goal of improving quality of life, as well as symptom management. Discussed CODE STATUS and advanced directives with patient and , he still wants to fight but is agreeable to DNR CC. Discussed hospice versus palliative care and patient and would like to pursue palliative for now, hospice possibly in the future if he continues to decline. This note was generated with [employer] dictation software. It may contain incorrect words, spelling, and punctuation that were not noted in checking the note before signing.
[2020-05-28] MEDS: GLATIRAMER ACETATE 40 MG/ML SYRINGE SC (17:35)
[2020-05-28] MEDS: Acetaminophen 650 MG/20 ML UDC GT (23:22)
[2020-05-29] VITALS (16 sets, daily range): BP systolic 127–169; BP diastolic 55–85; PULSE 78–92; RESP 12–30; TEMP 36.9–37.8; O2SAT 90–97
[2020-05-29] MEDS: Ipratropium/Albuterol Sulfate 3 ML AMPUL.NEB INHALATION ×5 (02:20→19:45)
--- NOTE | 2020-05-29 03:01 | CPS ---
RN stated that pt. took off his BiPAP at this time. Nasal cannula placed into pt.'s nose, although, oxygen needs have increased from 3L to 5L at this time.
[2020-05-29] MEDS: Menthol/Lanolin/Calamine/Znox 113 GM Tube 1 APPLIC TOPICAL ×3 (06:00→22:25)
[2020-05-29 06:33] LABS: Absolute Lymphocyte Count 1.14 X10^3/uL (0.83-4.51); Absolute Neutrophil Count 13.7 X10^3/uL (2.0-7.7); Basophil# 0.02 X10^3/uL; Basophil% 0.1 % (0-1); Eosinophil# 0.16 X10^3/uL; Hemoglobin 7.4 g/dL (13.0-16.5); Lymphocyte # 1.14 X10^3/ul (4.0); Lymphocyte % 6.9 % (19-41); Mean Corp Hgb Conc 30.8 g/dL (32-36); Mean Corpuscular Hgb 28.1 pg (27.0-32.0); Mean Corpuscular Volume 91.3 fL (80-94); Mean Platelet Vol. 11.2 fl (6.2-12.0); Monocyte# 1.34 X10^3/uL; Monocyte% 8.1 % (0-10); NRBC Flagged by Analyzer 0 % (0-5); Neutrophil % 82.9 % (47-70); Platelet Count 657 K/mm3 (150-450); RBC Distribution Width CV 17.4 % (11.6-14.6); Red Blood Count 2.63 M/mm3 (4.6-6.2); White Blood Count 16.5 K/mm3 (4.4-11.0)
[2020-05-29] MEDS: OXcarbazepine 300 MG Tablet GT ×3 (06:49→18:32)
[2020-05-29] MEDS: Acetaminophen 650 MG/20 ML UDC GT ×2 (06:49→22:27)
[2020-05-29 06:56] LABS: Anion Gap 4 (5-15); BUN 27 mg/dL (7-18); BUN/Creat Ratio 40.2 RATIO (10-20); Calcium,Total 8.7 mg/dL (8.5-10.1); Chloride 101 mmol/L (98-107); Creatinine, Serum 0.67 mg/dL (0.70-1.30); EST Glomerular Filtration Rate 123 mL/min (>60); Est Glom Filt Rate - Afr Amer 149 mL/min (>60); Estimated Creatinine Clearance 51.88 ml/min; Glucose 108 mg/dL (74-106); Potassium 3.9 mmol/L (3.5-5.1); Sodium Level 142 mmol/L (136-145)
[2020-05-29] MEDS: Budesonide Respules 0.5 MG/2 ML AMPUL.NEB. INHALATION (07:18)
--- NOTE | 2020-05-29 09:58 | PN.ID_ITS ---
Patient Problems: Active and Suspected Problems (Last Reviewed 06/27/19 @ 10:18 by Greer Don) Pneumonia (Acute) Sepsis (Acute) Right kidney stone (Acute) Aspiration pneumonia (Acute) Acute respiratory failure (Acute) Subjective: No fever, feeling about the same - Physical Exam Vitals/I&O's: Vital Signs Temp Pulse Resp BP Pulse Ox 100.1 F H 88 18 129/62 H 95 05/29/20 09:53 05/29/20 09:53 05/29/20 09:53 05/29/20 09:53 05/29/20 09:53 Oxygen Flow Rate (L/min) 3 Oxygen Delivery Method Nasal Cannula Weight: 56.6 kg Body Mass Index (BMI) 17.4 Intake and Output for Last 24 Hours 05/27/20 05/28/20 05/29/20 23:59 23:59 23:59 Intake Total 1300.00 / 1300.00 1099.67 / 1099.67 377 / 377 Output Total 2400 / 2700 1425 / 1425 550 / 550 Balance -1100.00 / -1400.00 -325.33 / -325.33 -173 / -173 General: Cooperative, No apparent distress Lungs: Rhonchi Cardiovascular: Regular rate, Regular Rhythm Abdomen: Soft, Non Tender, Non-Distended Skin: No rashes Microbiology Past 72 Hours 05/24/20 15:25 Blood Culture (Wb) - Left Forearm Blood Culture - Preliminary Staphylococcus aureus 05/24/20 15:25 Blood Culture (Wb) - Anticubital Left Blood Culture - Final Meth. resistant Staph. aureus 05/24/20 14:16 Urine, Catheterized Urine Culture - Final Meth. resistant Staph. aureus Laboratory Results 05/26/20 05:35: Diff Path Review Reviewed 05/27/20 04:40: Diff Path Review Reviewed 05/29/20 06:06: WBC 16.5 H, RBC 2.63 L, Hgb 7.4 L, Hct 24.0 L, MCV 91.3 D, MCH 28.1, MCHC 30.8 L, RDW Std Deviation 58.0 H, RDW Coeff of Ivelisse 17.4 H, Plt Count 657 H, MPV 11.2, Immature Gran % (Auto) 1.000 H, Neut % (Auto) 82.9 H, Lymph % (Auto) 6.9 L, [place] % (Auto) 8.1, Eos % (Auto) 1.0, Baso % (Auto) 0.1, Absolute Neuts (auto) 13.7 H, Absolute Lymphs (auto) 1.14, Nucleated RBC % 0 05/29/20 06:06: Sodium 142, Potassium 3.9, Chloride 101, Carbon Dioxide 37.0 H, Anion Gap 4 L, BUN 27 H, Creatinine 0.67 L, Estim Creat Clear Calc 51.88, Est GFR (MDRD) Af Amer 149, Est GFR (MDRD) Non-Af 123, BUN/Creatinine Ratio 40.2 H, Glucose 108 H, Calcium 8.7 Current Medications Acetaminophen (Acetaminophen 650 Mg/20 Ml Udc) 650 mg GT Q6H PRN PRN PRN Reason: Pain Score 1-10/Temp > 100.7 F Last Admin: 05/29/20 06:49 Dose: 650 mg Documented by: Al Hydroxide/Mg Hydroxide (Mag Hydrox/Al Hydrox/Simeth 30 Ml Udc) 30 ml GT Q6H PRN PRN PRN Reason: Gastric Burning Albuterol/Ipratropium (Ipratropium/Albuterol Sulfate 3 Ml Ampul.Neb) 3 ml INHALATION Q4HWA.RT [facility] Last Admin: 05/29/20 07:13 Dose: 3 ml Documented by: Amlodipine Besylate (Amlodipine 5 Mg Tablet) 5 mg GT DAILY [facility] Last Admin: 05/28/20 10:08 Dose: 5 mg Documented by: Budesonide (Budesonide Respules 0.5 Mg/2 Ml Ampul.Neb.) 0.5 mg INHALATION DAILY.RT [facility] Last Admin: 05/29/20 07:18 Dose: 0.5 mg Documented by: Calamine/Phenol (Menthol/Lanolin/Calamine/Znox 113 Gm Tube) 1 applic TOPICAL TID [facility]; Protocol Last Admin: 05/29/20 06:00 Dose: 1 applic Documented by: Enoxaparin Sodium (Enoxaparin 40 Mg/0.4 Ml Syringe) 40 mg SC DAILY [facility] Last Admin: 05/28/20 10:08 Dose: 40 mg Documented by: Glatiramer Acetate (Glatiramer Acetate 40 Mg/Ml Syringe) 40 mg SC SUTUTH@1000 [facility] Last Admin: 05/28/20 17:35 Dose: 40 mg Documented by: Ampicillin Sodium/Sulbactam (Sodium 3 gm/ Sodium Chloride) 112 mls @ 150 mls/hr IV Q8 [facility] Last Admin: 05/29/20 05:22 Dose: 150 mls/hr Documented by: Vancomycin IV Pharmacy to Dose (1 ea/ Sodium Chloride) 500 mls @ 250 mls/hr IV X1 PRN; Protocol PRN Reason: Rx to Dose Sodium Chloride () 250 mls @ 15 mls/hr IV .[id number] PRN PRN Reason: Saline Flush Last Infusion: 05/28/20 06:15 Dose: 15 mls/hr Documented by: Sodium Chloride () 250 mls @ 15 mls/hr IV .[id number] PRN PRN Reason: Additional IVPB Infusion Enteral Nutritional Formula (Jevity 1.5) 1,000 mls @ 50 mls/hr GT .Q20H [facility] Last Admin: 05/28/20 11:05 Dose: 50 mls/hr Documented by: Vancomycin HCl 750 mg/ Sodium (Chloride) 265 mls @ 250 mls/hr IV Q12H [facility] Last Infusion: 05/29/20 03:30 Dose: Infused Documented by: Lactobacillus Acidophilus (Lactobacillus Acidophilus) 2 tablet GT 4X/DAY [facility] Last Admin: 05/28/20 23:22 Dose: 2 tablet Documented by: Lansoprazole (Lansoprazole 15 Mg Capsule.Dr) 30 mg GT DAILY [facility] Last Admin: 05/28/20 10:07 Dose: 30 mg Documented by: Losartan Potassium (Losartan Potassium 100 Mg Tablet) 100 mg GT DAILY [facility] Last Admin: 05/28/20 10:07 Dose: 100 mg Documented by: Ondansetron HCl (Ondansetron 4 Mg/2 Ml Vial) 4 mg IV Q8H PRN PRN PRN Reason: NAUSEA/VOMITING Oxcarbazepine (Oxcarbazepine 300 Mg Tablet) 300 mg GT 0600,1200,1800 [facility] Last Admin: 05/29/20 06:49 Dose: 300 mg Documented by: Polyethylene Glycol (Polyethylene Glycol 3350 17 Gm Packet) 17 gm GT DAILY [facility] Last Admin: 05/28/20 10:25 Dose: Not Given Documented by: Senna/Docusate Sodium (Senna/Docusate Sodium 1 Tablet) 2 tablet GT BID PRN PRN PRN Reason: Constipation Sodium Chloride (0.9% Saline Lock 10 Ml Syringe) 10 - 40 ml IV UD PRN PRN Reason: SALINE FLUSH Last Admin: 05/27/20 09:50 Dose: 20 ml Documented by: Medical Necessity - Tobacco Use Smoking Status: Former smoker Tobacco Use: Non-smoker Route of nutrition/ use of supplements: [] Nutritional Intake: [] IV Site: [] Olivares Catheter: [] - Assessment/Plan Antibiotics: [] Assessment/Plan: [] Active and Suspected Problems (Last Reviewed 06/27/19 @ 10:18 by Greer Don) Pneumonia (Acute) Right kidney stone (Acute) MRSA bacteremia - not clear if urine is source or represents hematogenous spread. CT showed presence of renal stones. TTE neg for veg. Will check repeat bcx. Cont vanc for MRSA coverage, on unasyn for suspected aspiration. Wbc improved. Plan on stopping unasyn tomorrow. Will follow, d/w Dr. Morgan
[2020-05-29] MEDS: Enoxaparin 40 MG/0.4 ML Syringe SC (10:00)
[2020-05-29] MEDS: amLODIPine 5 MG Tablet GT (10:00)
[2020-05-29] MEDS: Losartan Potassium 100 MG Tablet GT (10:05)
[2020-05-29] MEDS: Jevity 1.5 1,000 ML 50 ML GT (10:07)
[2020-05-29] MEDS: Lansoprazole 15 MG Capsule.DR 30 MG GT (10:07)
--- NOTE | 2020-05-29 14:57 | PCM.PN.HOSP ---
Patient Problems: Active and Suspected Problems (Last Reviewed 06/27/19 @ 10:18 by Greer Don) Pneumonia (Acute) Sepsis (Acute) Right kidney stone (Acute) Aspiration pneumonia (Acute) Acute respiratory failure (Acute) Subjective: Patient seen and examined. He had no complaints. He was more alert today. Review of systems otherwise negative. He has remained hemodynamically stable. He remains on 3L of oxygen by nasal canula Vitals/I&O's: Vital Signs Temp Pulse Resp BP Pulse Ox 98.7 F 84 18 127/55 H 92 05/29/20 13:59 05/29/20 13:59 05/29/20 13:59 05/29/20 13:59 05/29/20 13:59 Oxygen Flow Rate (L/min) 3 Oxygen Delivery Method Nasal Cannula Weight: 124 lb 12.506 oz Body Mass Index (BMI) 17.4 Intake and Output for Last 24 Hours 05/27/20 05/28/20 05/29/20 23:59 23:59 23:59 Intake Total 1300.00 / 1300.00 1099.67 / 1099.67 754 / 754 Output Total 2400 / 2700 1425 / 1425 550 / 550 Balance -1100.00 / -1400.00 -325.33 / -325.33 204 / 204 General: No apparent distress, alert HEENT: Atraumatic, PERRLA, EOMI, Normocephalic Oral: Moist Mucosa Neck: Supple, No JVD Lungs: rhonchi and coarse crackles in all lung osborn bilaterally, on 3L of oxygen Cardiovascular: Regular rate, Regular Rhythm, Normal S1, Normal S2, No murmurs Abdomen: Soft, Non Tender, Non-Distended, No Hepato-splenomegaly Extremities: Capillary Refill Less than 3 Seconds, Edema Skin: - intact, no rash Musculoskeletal: Cachexia - Temporal wasting, - - Lower extremity contractures Neurological: - - Lower extremity contractures with chronic weakness of his upper extremities 3 out of 5. Microbiology Past 72 Hours 05/24/20 15:25 Blood Culture (Wb) - Left Forearm Blood Culture - Preliminary Staphylococcus aureus 05/24/20 15:25 Blood Culture (Wb) - Anticubital Left Blood Culture - Final Meth. resistant Staph. aureus Laboratory Results 05/29/20 06:06: WBC 16.5 H, RBC 2.63 L, Hgb 7.4 L, Hct 24.0 L, MCV 91.3 D, MCH 28.1, MCHC 30.8 L, RDW Std Deviation 58.0 H, RDW Coeff of Ivelisse 17.4 H, Plt Count 657 H, MPV 11.2, Immature Gran % (Auto) 1.000 H, Neut % (Auto) 82.9 H, Lymph % (Auto) 6.9 L, [place] % (Auto) 8.1, Eos % (Auto) 1.0, Baso % (Auto) 0.1, Absolute Neuts (auto) 13.7 H, Absolute Lymphs (auto) 1.14, Nucleated RBC % 0 05/29/20 06:06: Sodium 142, Potassium 3.9, Chloride 101, Carbon Dioxide 37.0 H, Anion Gap 4 L, BUN 27 H, Creatinine 0.67 L, Estim Creat Clear Calc 51.88, Est GFR (MDRD) Af Amer 149, Est GFR (MDRD) Non-Af 123, BUN/Creatinine Ratio 40.2 H, Glucose 108 H, Calcium 8.7 Diagnostic Data Abdomen/Pelvis CT 05/24/20 15:00 IMPRESSION: 1.5 cm x 0.8 cm calculus in the right renal pelvis at the junction with the right ureter causing mild degree of obstruction. Bilateral intrarenal calculi. Diffuse bladder wall thickening as described with focal calcifications within the bladder wall. Electronically Signed: Bob Jolley MD at 15:54 EDT , Service support , Chest X-Ray 05/27/20 11:06 IMPRESSION: No change in right lower lobe pneumonia. Electronically Signed: Aleksandar Matias MD at 11:55 EDT Tel , Service support , Current Medications Acetaminophen (Acetaminophen 650 Mg/20 Ml Udc) 650 mg GT Q6H PRN PRN PRN Reason: Pain Score 1-10/Temp > 100.7 F Last Admin: 05/29/20 06:49 Dose: 650 mg Documented by: Al Hydroxide/Mg Hydroxide (Mag Hydrox/Al Hydrox/Simeth 30 Ml Udc) 30 ml GT Q6H PRN PRN PRN Reason: Gastric Burning Albuterol/Ipratropium (Ipratropium/Albuterol Sulfate 3 Ml Ampul.Neb) 3 ml INHALATION Q4HWA.RT [facility] Last Admin: 05/29/20 11:14 Dose: 3 ml Documented by: Amlodipine Besylate (Amlodipine 5 Mg Tablet) 5 mg GT DAILY [facility] Last Admin: 05/29/20 10:00 Dose: 5 mg Documented by: Budesonide (Budesonide Respules 0.5 Mg/2 Ml Ampul.Neb.) 0.5 mg INHALATION DAILY.RT [facility] Last Admin: 05/29/20 07:18 Dose: 0.5 mg Documented by: Calamine/Phenol (Menthol/Lanolin/Calamine/Znox 113 Gm Tube) 1 applic TOPICAL TID [facility]; Protocol Last Admin: 05/29/20 13:57 Dose: 1 applic Documented by: Enoxaparin Sodium (Enoxaparin 40 Mg/0.4 Ml Syringe) 40 mg SC DAILY [facility] Last Admin: 05/29/20 10:00 Dose: 40 mg Documented by: Glatiramer Acetate (Glatiramer Acetate 40 Mg/Ml Syringe) 40 mg SC SUTUTH@1000 [facility] Last Admin: 05/28/20 17:35 Dose: 40 mg Documented by: Ampicillin Sodium/Sulbactam (Sodium 3 gm/ Sodium Chloride) 112 mls @ 150 mls/hr IV Q8 [facility] Last Admin: 05/29/20 14:11 Dose: 150 mls/hr Documented by: Vancomycin IV Pharmacy to Dose (1 ea/ Sodium Chloride) 500 mls @ 250 mls/hr IV X1 PRN; Protocol PRN Reason: Rx to Dose Sodium Chloride () 250 mls @ 15 mls/hr IV .[id number] PRN PRN Reason: Saline Flush Last Infusion: 05/28/20 06:15 Dose: 15 mls/hr Documented by: Sodium Chloride () 250 mls @ 15 mls/hr IV .[id number] PRN PRN Reason: Additional IVPB Infusion Enteral Nutritional Formula (Jevity 1.5) 1,000 mls @ 50 mls/hr GT .Q20H [facility] Last Admin: 05/29/20 10:07 Dose: 50 mls/hr Documented by: Vancomycin HCl 750 mg/ Sodium (Chloride) 265 mls @ 250 mls/hr IV Q12H [facility] Last Infusion: 05/29/20 13:40 Dose: Infused Documented by: Lactobacillus Acidophilus (Lactobacillus Acidophilus) 2 tablet GT 4X/DAY [facility] Last Admin: 05/29/20 13:57 Dose: 2 tablet Documented by: Lansoprazole (Lansoprazole 15 Mg Capsule.Dr) 30 mg GT DAILY [facility] Last Admin: 05/29/20 10:07 Dose: 30 mg Documented by: Losartan Potassium (Losartan Potassium 100 Mg Tablet) 100 mg GT DAILY [facility] Last Admin: 05/29/20 10:05 Dose: 100 mg Documented by: Ondansetron HCl (Ondansetron 4 Mg/2 Ml Vial) 4 mg IV Q8H PRN PRN PRN Reason: NAUSEA/VOMITING Oxcarbazepine (Oxcarbazepine 300 Mg Tablet) 300 mg GT 0600,1200,1800 [facility] Last Admin: 05/29/20 12:10 Dose: 300 mg Documented by: Polyethylene Glycol (Polyethylene Glycol 3350 17 Gm Packet) 17 gm GT DAILY [facility] Last Admin: 05/29/20 10:01 Dose: Not Given Documented by: Senna/Docusate Sodium (Senna/Docusate Sodium 1 Tablet) 2 tablet GT BID PRN PRN PRN Reason: Constipation Sodium Chloride (0.9% Saline Lock 10 Ml Syringe) 10 - 40 ml IV UD PRN PRN Reason: SALINE FLUSH Last Admin: 05/27/20 09:50 Dose: 20 ml Documented by: STROKE Vital Signs/Narrative: Vital Signs Temp Pulse Resp BP Pulse Ox 05/29/20 13:59 98.7 F 84 18 127/55 H 92 05/29/20 11:14 78 24 H Medical Necessity - Tobacco Use Smoking Status: Former smoker Tobacco Use: Non-smoker Assessment/Plan All Active Problems (Last Reviewed 06/27/19 @ 10:18 by Greer Don) Pneumonia (Acute) Sepsis (Acute) Right kidney stone (Acute) Aspiration pneumonia (Acute) Cellulitis of right arm (Acute) Acute respiratory failure (Acute) COPD exacerbation (Acute) #Acute hypoxic and hypercapnic respiratory failure due to aspiration pneumonia on 3L of oxygen which is his baseline has PEG tube in place. blood cultures growing MRSA on IV vancomycin and IV unasyn get 2D echo o/a of MRSA bacteremia titrate oxygen to maintain sats >90% ID on board. TTE was negative for any vegetations repeat blood cultures pending #Sepsis due to Aspiration pneumonia and UTI: as above. aspiration precautions. #Aspiration pneumonia: as above. speech therapy on board #UTI: urine culture growing MRSA. on IV vancomycin #Multiple sclerosis with lower extremity contractures on trilepta, ampyra and cymbalta #Hypertension: on amlodipine and losartan #Nephrolithiasis: urology on board. Advocate conservative management now #Thromobocytosis: platelets are 657 today. Will continue to trend #GERD: on PPI Nutrition: on tube feeding. Nutrition on board DVT prophylaxis: [facility] Inpatient E&M: [id number] [facility] L3
--- NOTE | 2020-05-29 15:12 | CASEMGMT ---
Addendum entered by Cherie Tariq 05/29/20 15:43: ELAINE also offered to provide Johanne with list of SNF providers including quality and resource use data and consistent with the patient?s preferred geographic region, medical needs, and insurance network but Johanne refused to take list. Addendum entered by Cherie Tariq 05/29/20 15:35: ELAINE received call from pt's significant other Johanne stating she is at [facility]. SW in to speak with pt Johanne. ELAINE asked Johanne if she had questions regarding pt's discharge. Johanne states no. ELAINE informed Johanne that it was relayed to this worker that she wanted pt to go to [facility] at discharge. Johanne states she is not sure yet. ELAINE offered to send referral to [facility] and Johanne denied. Johanne states she will be calling [facility] herself and then deciding what to do. ELAINE informed Johanne that if she and pt decide on SNF and then decide on which one they want to let either this worker know or staff know and this worker will make referral. ELAINE explained referral process. Johanne states pt is long way away from being discharged. SW to remain available if pt needs SNF. Original Note: Social Work Note SW received update that pt's significant other Johanne had questions regarding pt's discharge and pt possibly going to [facility] but was unsure of insurance. ELAINE attempted to call Johanne back, no answer, SW left message. ELAINE waiting for call back from Johanne. Cherie Tariq LNA, PRACTICAL NURSING TEACHER
--- NOTE | 2020-05-29 16:26 | PN.PALL_ITS ---
Progress Note- Hospice Date: 05/29/20 Subjective: Patient still with labored breathing, respirations 28-36, reports feels more short of breath today. He has noisy breathing and congestion. Legs are hurting him. Refused BiPAP since midnight last night, remains on 3 L of oxygen supplementation. Met with patient and his and had long discussion about goals of care and current health status, discussed hospice versus palliative services. Patient and significant other both state they think it is time for more discussion about hospice. Discussed dysphagia with nursing and with speech therapy as well. Objective: Vital Signs Temp 98.7 F 05/29/20 13:59 Pulse 89 05/29/20 14:50 Resp 28 H 05/29/20 14:50 BP 127/55 H 05/29/20 13:59 Pulse Ox 92 05/29/20 13:59 Intake & Output 05/27/20 05/28/20 05/29/20 23:59 23:59 23:59 Intake Total 1300.00 / 1300.00 1099.67 / 1099.67 754 / 754 Output Total 2400 / 2700 1425 / 1425 550 / 550 Balance -1100.00 / -1400.00 -325.33 / -325.33 204 / 204 Weight: 56.6 kg 56.699 kg 56.6 kg Intake: Intake, IV Amount 750.00 / 750.00 1029.67 / 1029.67 754 / 754 0.9% Normal Saline 250 ML @ 15 214.00 / 214.00 49 / 49 mls/hr IV .[id number] PRN Rx#: [id number] Potassium Chloride 10mEq/100mL 391.67 / 391.67 10 MEQ/100 ML10 meq In 100 ml @ 100 mls/hr IV BOLUS Q1H [facility] Rx #:[id number] Unasyn 3 GM In 0.9% Normal 336 / 336 224 / 224 224 / 224 Saline 100 ML @ 150 mls/hr IV Q8 [facility] Rx#:[id number] Vancomycin IV 1,000 MG/20 ML In 265 / 265 530 / 530 0.9% Normal Saline 250 ML @ 250 mls/hr IV Q12H [facility] Rx#: [id number] Vancomycin IV 500 MG/100 ML500 200 / 200 100 / 100 mg In 100 ml @ 100 mls/hr IV Q12H [facility] Rx#:[id number] NG/PEG Flush 550 / 550 70 / 70 PEG 350 / 350 Output: Urine 2400 / 2700 1425 / 1425 550 / 550 Other: Number of times incontinent 2 Urine #2 Number of Bowel Movements 1 1 05/29/20 05/29/20 06:06 06:06 WBC 16.5 H RBC 2.63 L Hgb 7.4 L Hct 24.0 L MCHC 30.8 L RDW Std Deviation 58.0 H RDW Coeff of Ivelisse 17.4 H Plt Count 657 H Immature Gran % (Auto) 1.000 H Neut % (Auto) 82.9 H Lymph % (Auto) 6.9 L Absolute Neuts (auto) 13.7 H Carbon Dioxide 37.0 H Anion Gap 4 L BUN 27 H Creatinine 0.67 L BUN/Creatinine Ratio 40.2 H Glucose 108 H Current Medications Acetaminophen (Acetaminophen 650 Mg/20 Ml Udc) 650 mg GT Q6H PRN PRN PRN Reason: Pain Score 1-10/Temp > 100.7 F Last Admin: 05/29/20 06:49 Dose: 650 mg Documented by: Al Hydroxide/Mg Hydroxide (Mag Hydrox/Al Hydrox/Simeth 30 Ml Udc) 30 ml GT Q6H PRN PRN PRN Reason: Gastric Burning Albuterol/Ipratropium (Ipratropium/Albuterol Sulfate 3 Ml Ampul.Neb) 3 ml INHALATION Q4HWA.RT [facility] Last Admin: 05/29/20 14:50 Dose: 3 ml Documented by: Amlodipine Besylate (Amlodipine 5 Mg Tablet) 5 mg GT DAILY [facility] Last Admin: 05/29/20 10:00 Dose: 5 mg Documented by: Budesonide (Budesonide Respules 0.5 Mg/2 Ml Ampul.Neb.) 0.5 mg INHALATION DAILY.RT [facility] Last Admin: 05/29/20 07:18 Dose: 0.5 mg Documented by: Calamine/Phenol (Menthol/Lanolin/Calamine/Znox 113 Gm Tube) 1 applic TOPICAL TID [facility]; Protocol Last Admin: 05/29/20 13:57 Dose: 1 applic Documented by: Enoxaparin Sodium (Enoxaparin 40 Mg/0.4 Ml Syringe) 40 mg SC DAILY [facility] Last Admin: 05/29/20 10:00 Dose: 40 mg Documented by: Glatiramer Acetate (Glatiramer Acetate 40 Mg/Ml Syringe) 40 mg SC SUTUTH@1000 [facility] Last Admin: 05/28/20 17:35 Dose: 40 mg Documented by: Ampicillin Sodium/Sulbactam (Sodium 3 gm/ Sodium Chloride) 112 mls @ 150 mls/hr IV Q8 [facility] Last Admin: 05/29/20 14:11 Dose: 150 mls/hr Documented by: Vancomycin IV Pharmacy to Dose (1 ea/ Sodium Chloride) 500 mls @ 250 mls/hr IV X1 PRN; Protocol PRN Reason: Rx to Dose Sodium Chloride () 250 mls @ 15 mls/hr IV .[id number] PRN PRN Reason: Saline Flush Last Infusion: 05/28/20 06:15 Dose: 15 mls/hr Documented by: Sodium Chloride () 250 mls @ 15 mls/hr IV .[id number] PRN PRN Reason: Additional IVPB Infusion Enteral Nutritional Formula (Jevity 1.5) 1,000 mls @ 50 mls/hr GT .Q20H [facility] Last Admin: 05/29/20 10:07 Dose: 50 mls/hr Documented by: Vancomycin HCl 750 mg/ Sodium (Chloride) 265 mls @ 250 mls/hr IV Q12H [facility] Last Infusion: 05/29/20 13:40 Dose: Infused Documented by: Lactobacillus Acidophilus (Lactobacillus Acidophilus) 2 tablet GT 4X/DAY [facility] Last Admin: 05/29/20 13:57 Dose: 2 tablet Documented by: Lansoprazole (Lansoprazole 15 Mg Capsule.) 30 mg GT DAILY [facility] Last Admin: 05/29/20 10:07 Dose: 30 mg Documented by: Losartan Potassium (Losartan Potassium 100 Mg Tablet) 100 mg GT DAILY [facility] Last Admin: 05/29/20 10:05 Dose: 100 mg Documented by: Ondansetron HCl (Ondansetron 4 Mg/2 Ml Vial) 4 mg IV Q8H PRN PRN PRN Reason: NAUSEA/VOMITING Oxcarbazepine (Oxcarbazepine 300 Mg Tablet) 300 mg GT 0600,1200,1800 [facility] Last Admin: 05/29/20 12:10 Dose: 300 mg Documented by: Polyethylene Glycol (Polyethylene Glycol 3350 17 Gm Packet) 17 gm GT DAILY [facility] Last Admin: 05/29/20 10:01 Dose: Not Given Documented by: Senna/Docusate Sodium (Senna/Docusate Sodium 1 Tablet) 2 tablet GT BID PRN PRN PRN Reason: Constipation Sodium Chloride (0.9% Saline Lock 10 Ml Syringe) 10 - 40 ml IV UD PRN PRN Reason: SALINE FLUSH Last Admin: 05/27/20 09:50 Dose: 20 ml Documented by: - Physical Exam General: Alert, Cooperative, - - Moderate respiratory distress. Cachectic HEENT: Atraumatic, Normocephalic Oral: - - Very dry oral mucosa and lips, cracked Neck: Trachea Midline Lungs: Diminished, Rales - Bilateral mid to bases, coarse, Rhonchi - Coarse throughout, Short of Breath, Tachypneic, Using Accessory Muscles, Wheezes - Faint expiratory wheeze, - - Conversational dyspnea, able to speak 1-2 words at a time Cardiovascular: Regular Rhythm, Normal S1, Normal S2, Tachycardic Abdomen: Bowel Sounds Present, Soft, Non Tender, - - PEG tube in place Extremities: No cyanosis, Edema Skin: Ulcer/ Wound Musculoskeletal: Cachexia Neurological: - - Very fatigued but arousable and interactive, answering questions Psych/Mental Status: Restless Assessment/Plan All Active Problems (Last Reviewed 06/27/19 @ 10:18 by Greer Don) Pneumonia (Acute) Sepsis (Acute) Right kidney stone (Acute) Aspiration pneumonia (Acute) Cellulitis of right arm (Acute) Acute respiratory failure (Acute) COPD exacerbation (Acute) 75-year-old male with history of MS and progressive debility, seen today for palliative care consultation. Lives at home with his , who is his sole caregiver. 1. Debility/MS: likely progressing, moving toward hospice consult. see below 2. Aspiration pneumonia: Longstanding history of dysphagia related to neurological disease, now has a PEG tube and feeds started today. c/w Pulmicort, no systemic steroids at this time, see below. Vest therapy effective for mobilizing secretions. 3. Renal calculi/sepsis/UC/COPD/chronic respiratory failure/seizure disorder/depression/HTN/anemia/BPH/vitamin D deficiency/GERD/gout: Complicates overall care, management, recovery, and prognosis. After another long discussion with the patient and his significant other, Johanne, they have elected to further discuss hospice services with the patient liaison, scheduled for 05/30 at 2:30 PM. Liaison will come to the hospital and meet the patient and his family at bedside. Anticipate admission to inpatient [facility] at [facility] at that time. Time spent at bedside 72 minutes, Johanne present. Greater than 50% of F2F visit dedicated to education and counseling regarding his multiple comorbidities, increasing weakness with new aspiration pneumonia, and discussing palliative care versus hospice services. Notified Dr. Morgan via [employer], awaiting reply. Thank you for the opportunity to participate in this patient's care, please do not hesitate to contact [facility] with any further questions or concerns. Palliative direct line is [phone]. We will have RN follow up approximately 3 days after discharge to home and will discuss palliative services further at that time.
[2020-05-30] VITALS (20 sets, daily range): BP systolic 104–153; BP diastolic 53–71; PULSE 74–92; RESP 18–34; TEMP 36.2–37.7; O2SAT 92–99
[2020-05-30 00:54] LABS: Vancomycin, Trough Level 15.9 ug/mL (5.0-15.0)
[2020-05-30 05:32] LABS: Absolute Neutrophil Count 13.1 X10^3/uL (2.0-7.7); Basophil# 0.03 X10^3/uL; Basophil% 0.2 % (0-1); Eosinophil# 0.24 X10^3/uL; Eosinophils% 1.5 % (0-5); Hematocrit 21.2 % (40-54); Hemoglobin 6.6 g/dL (13.0-16.5); Lymphocyte % 7.5 % (19-41); Mean Corp Hgb Conc 31.1 g/dL (32-36); Mean Corpuscular Hgb 28.6 pg (27.0-32.0); Mean Corpuscular Volume 91.8 fL (80-94); Mean Platelet Vol. 10.7 fl (6.2-12.0); Monocyte# 1.39 X10^3/uL; Monocyte% 8.6 % (0-10); NRBC Flagged by Analyzer 0 % (0-5); Neutrophil # 13.14 X10^3/uL (2.7-7.7); Neutrophil % 81.6 % (47-70); Platelet Count 557 K/mm3 (150-450); RBC Distribution Width CV 17.8 % (11.6-14.6); RBC Distribution Width SD 59.6 fl (35.1-43.9); Red Blood Count 2.31 M/mm3 (4.6-6.2); White Blood Count 16.1 K/mm3 (4.4-11.0)
[2020-05-30] MEDS: OXcarbazepine 300 MG Tablet GT ×3 (05:35→17:19)
[2020-05-30] MEDS: Menthol/Lanolin/Calamine/Znox 113 GM Tube 1 APPLIC TOPICAL (05:35)
[2020-05-30 05:50] LABS: Anion Gap 3 (5-15); BUN 29 mg/dL (7-18); BUN/Creat Ratio 40.1 RATIO (10-20); Calcium,Total 8.8 mg/dL (8.5-10.1); Chloride 103 mmol/L (98-107); Creatinine, Serum 0.72 mg/dL (0.70-1.30); EST Glomerular Filtration Rate 113 mL/min (>60); Est Glom Filt Rate - Afr Amer 136 mL/min (>60); Estimated Creatinine Clearance 51.88 ml/min; Glucose 111 mg/dL (74-106); Potassium 4.2 mmol/L (3.5-5.1); Sodium Level 143 mmol/L (136-145)
[2020-05-30] MEDS: Budesonide Respules 0.5 MG/2 ML AMPUL.NEB. INHALATION (07:01)
[2020-05-30] MEDS: Ipratropium/Albuterol Sulfate 3 ML AMPUL.NEB INHALATION ×3 (07:01→18:55)
[2020-05-30] MEDS: Acetaminophen 650 MG/20 ML UDC GT (08:20)
--- NOTE | 2020-05-30 09:35 | NURSING ---
Pt lethargic, unable to sign consent for blood administration. Attempted to call Johanne, pt's without an answer. Will attempt to call Johanne at later time.
[2020-05-30] MEDS: Losartan Potassium 100 MG Tablet GT (09:39)
[2020-05-30] MEDS: amLODIPine 5 MG Tablet GT (09:39)
[2020-05-30] MEDS: Jevity 1.5 1,000 ML 50 ML GT (09:47)
[2020-05-30] MEDS: 0.9% Saline Lock 10 ML Syringe IV ×4 (11:53→17:18)
--- NOTE | 2020-05-30 13:25 | PN.ID_ITS ---
Patient Problems: Active and Suspected Problems (Last Reviewed 06/27/19 @ 10:18 by Greer Don) Pneumonia (Acute) Sepsis (Acute) Right kidney stone (Acute) Aspiration pneumonia (Acute) Acute respiratory failure (Acute) Subjective: Sleeping, no fever - Physical Exam Vitals/I&O's: Vital Signs Temp Pulse Resp BP Pulse Ox 98.4 F 80 32 H 114/54 L 94 05/30/20 11:22 05/30/20 11:22 05/30/20 11:22 05/30/20 11:22 05/30/20 11:22 Oxygen Flow Rate (L/min) 40 Oxygen Delivery Method Airvo Weight: 56.6 kg Body Mass Index (BMI) 17.4 Intake and Output for Last 24 Hours 05/28/20 05/29/20 05/30/20 23:59 23:59 23:59 Intake Total 1099.67 / 1099.67 978 / 978 1132 / 1132 Output Total 1425 / 1425 1400 / 1400 1400 / 1400 Balance -325.33 / -325.33 -422 / -422 -268 / -268 General: No apparent distress Lungs: Diminished - improved rhonchi Cardiovascular: Regular rate, Regular Rhythm Abdomen: Soft, Non Tender, Non-Distended Skin: No rashes Microbiology Past 72 Hours 05/27/20 17:10 Blood Culture (Wb) - Right Hand Blood Culture - Preliminary No growth in 48 hours. 05/24/20 15:25 Blood Culture (Wb) - Left Forearm Blood Culture - Preliminary Staphylococcus aureus Laboratory Results 05/30/20 00:30: Vancomycin Trough 15.9 H 05/30/20 05:20: WBC 16.1 H, RBC 2.31 L, Hgb 6.6 L, Hct 21.2 L, MCV 91.8, MCH 28.6, MCHC 31.1 L, RDW Std Deviation 59.6 H, RDW Coeff of Ivelisse 17.8 H, Plt Count 557 H, MPV 10.7, Immature Gran % (Auto) 0.600, Neut % (Auto) 81.6 H, Lymph % (Auto) 7.5 L, [place] % (Auto) 8.6, Eos % (Auto) 1.5, Baso % (Auto) 0.2, Absolute Neuts (auto) 13.1 H, Absolute Lymphs (auto) 1.20, Nucleated RBC % 0 05/30/20 05:20: Sodium 143, Potassium 4.2, Chloride 103, Carbon Dioxide 37.0 H, Anion Gap 3 L, BUN 29 H, Creatinine 0.72, Estim Creat Clear Calc 51.88, Est GFR (MDRD) Af Amer 136, Est GFR (MDRD) Non-Af 113, BUN/Creatinine Ratio 40.1 H, Glucose 111 H, Calcium 8.8 05/30/20 09:50: Blood Type B POSITIVE, Antibody Screen NEGATIVE, Crossmatch See Detail Current Medications Acetaminophen (Acetaminophen 650 Mg/20 Ml Udc) 650 mg GT Q6H PRN PRN PRN Reason: Pain Score 1-10/Temp > 100.7 F Last Admin: 05/30/20 08:20 Dose: 650 mg Documented by: Al Hydroxide/Mg Hydroxide (Mag Hydrox/Al Hydrox/Simeth 30 Ml Udc) 30 ml GT Q6H PRN PRN PRN Reason: Gastric Burning Albuterol/Ipratropium (Ipratropium/Albuterol Sulfate 3 Ml Ampul.Neb) 3 ml INHALATION Q4HWA.RT [facility] Last Admin: 05/30/20 11:08 Dose: 3 ml Documented by: Amlodipine Besylate (Amlodipine 5 Mg Tablet) 5 mg GT DAILY [facility] Last Admin: 05/30/20 09:39 Dose: 5 mg Documented by: Budesonide (Budesonide Respules 0.5 Mg/2 Ml Ampul.Neb.) 0.5 mg INHALATION DAILY.RT [facility] Last Admin: 05/30/20 07:01 Dose: 0.5 mg Documented by: Calamine/Phenol (Menthol/Lanolin/Calamine/Znox 113 Gm Tube) 1 applic TOPICAL TID [facility]; Protocol Last Admin: 05/30/20 05:35 Dose: 1 applic Documented by: Glatiramer Acetate (Glatiramer Acetate 40 Mg/Ml Syringe) 40 mg SC SUTUTH@1000 [facility] Last Admin: 05/28/20 17:35 Dose: 40 mg Documented by: Vancomycin IV Pharmacy to Dose (1 each/ Sodium Chloride) 500 mls @ 250 mls/hr IV X1 PRN; Protocol PRN Reason: Rx to Dose Sodium Chloride () 250 mls @ 15 mls/hr IV .[id number] PRN PRN Reason: Saline Flush Last Infusion: 05/28/20 06:15 Dose: 15 mls/hr Documented by: Sodium Chloride () 250 mls @ 15 mls/hr IV .[id number] PRN PRN Reason: Additional IVPB Infusion Enteral Nutritional Formula (Jevity 1.5) 1,000 mls @ 50 mls/hr GT .Q20H [facility] Last Admin: 05/30/20 09:47 Dose: 50 mls/hr Documented by: Vancomycin HCl 750 mg/ Sodium (Chloride) 265 mls @ 250 mls/hr IV Q12H [facility] Last Admin: 05/30/20 12:21 Dose: 250 mls/hr Documented by: Pantoprazole Sodium 40 mg/ (Sodium Chloride) 110 mls @ 330 mls/hr IV Q12 [facility] Last Infusion: 05/30/20 10:27 Dose: Infused Documented by: Lactobacillus Acidophilus (Lactobacillus Acidophilus) 2 tablet GT 4X/DAY [facility] Last Admin: 05/30/20 09:38 Dose: 2 tablet Documented by: Losartan Potassium (Losartan Potassium 100 Mg Tablet) 100 mg GT DAILY [facility] Last Admin: 05/30/20 09:39 Dose: 100 mg Documented by: Ondansetron HCl (Ondansetron 4 Mg/2 Ml Vial) 4 mg IV Q8H PRN PRN PRN Reason: NAUSEA/VOMITING Oxcarbazepine (Oxcarbazepine 300 Mg Tablet) 300 mg GT 0600,1200,1800 [facility] Last Admin: 05/30/20 11:53 Dose: 300 mg Documented by: Polyethylene Glycol (Polyethylene Glycol 3350 17 Gm Packet) 17 gm GT DAILY [facility] Last Admin: 05/30/20 07:51 Dose: Not Given Documented by: Senna/Docusate Sodium (Senna/Docusate Sodium 1 Tablet) 2 tablet GT BID PRN PRN PRN Reason: Constipation Sodium Chloride (0.9% Saline Lock 10 Ml Syringe) 10 - 40 ml IV UD PRN PRN Reason: SALINE FLUSH Last Admin: 05/30/20 12:21 Dose: 10 ml Documented by: Medical Necessity - Tobacco Use Smoking Status: Former smoker Tobacco Use: Non-smoker Route of nutrition/ use of supplements: [] Nutritional Intake: [] IV Site: [] Olivares Catheter: [] - Assessment/Plan Antibiotics: [] Assessment/Plan: [] Active and Suspected Problems (Last Reviewed 06/27/19 @ 10:18 by Greer Don) Pneumonia (Acute) Right kidney stone (Acute) MRSA bacteremia - not clear if urine is source or represents hematogenous spread. CT showed presence of renal stones. TTE neg for veg. Bcx cleared 05/27. Cont vanc for MRSA coverage, on unasyn for suspected aspiration. Wbc improved. Stop unasyn today. Ordered picc for 4 weeks iv vanc, stop 06/24/20, weekly bmp, cbc, and vanc trough. If he goes with hospice, could stop abx entirely or do 2 weeks of linezolid per peg. 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
--- NOTE | 2020-05-30 16:19 | PN_ITS ---
Patient Problems: Active and Suspected Problems (Last Reviewed 06/27/19 @ 10:18 by Greer Don) Pneumonia (Acute) Sepsis (Acute) Right kidney stone (Acute) Aspiration pneumonia (Acute) Acute respiratory failure (Acute) Subjective: Patient seen and examined. He was much more lethargic today and was on high flow oxygen via airflow. Hemoglobin noted to have dropped to 6.6 today. He was on 40 L of oxygen via airflow. WBC 16.1 today. met with hospice team today and decided that she wanted to send patient to inpatient hospice. Patient has been transfused 2 units of packed red blood cells. wants us to complete a 2 units of packed red blood cells and check her hemoglobin afterwards and then discharge him to hospice tomorrow. She does not want any further work- up with GI or surgery. Vitals/I&O's: Vital Signs Temp Pulse Resp BP Pulse Ox 97.6 F L 77 28 H 126/62 H 96 05/30/20 15:24 05/30/20 15:24 05/30/20 15:24 05/30/20 15:24 05/30/20 15:24 Oxygen Flow Rate (L/min) 40 Oxygen Delivery Method Airvo Weight: 124 lb 12.506 oz Body Mass Index (BMI) 17.4 Intake and Output for Last 24 Hours 05/28/20 05/29/20 05/30/20 23:59 23:59 23:59 Intake Total 1099.67 / 1099.67 978 / 978 1397 / 1397 Output Total 1425 / 1425 1400 / 1400 1400 / 1400 Balance -325.33 / -325.33 -422 / -422 -3 / -3 General: No apparent distress, alert HEENT: Atraumatic, PERRLA, EOMI, Normocephalic Oral: Moist Mucosa Neck: Supple, No JVD Lungs: rhonchi and coarse crackles in all lung osborn bilaterally, on hi flow oxygen via AirVo at 40L Cardiovascular: Regular rate, Regular Rhythm, Normal S1, Normal S2, No murmurs Abdomen: Soft, Non Tender, Non-Distended, No Hepato-splenomegaly Extremities: Capillary Refill Less than 3 Seconds, Edema Skin: - intact, no rash Musculoskeletal: Cachexia - Temporal wasting, - - Lower extremity contractures Neurological: - - Lower extremity contractures with chronic weakness of his upper extremities 3 out of 5. Microbiology Past 72 Hours 05/28/20 15:26 Blood Culture (Wb) - Right Hand Blood Culture - Preliminary No growth in 48 hours. 05/27/20 17:10 Blood Culture (Wb) - Right Hand Blood Culture - Preliminary No growth in 48 hours. 05/24/20 15:25 Blood Culture (Wb) - Left Forearm Blood Culture - Preliminary Staphylococcus aureus Laboratory Results 05/30/20 00:30: Vancomycin Trough 15.9 H 05/30/20 05:20: WBC 16.1 H, RBC 2.31 L, Hgb 6.6 L, Hct 21.2 L, MCV 91.8, MCH 28.6, MCHC 31.1 L, RDW Std Deviation 59.6 H, RDW Coeff of Ivelisse 17.8 H, Plt Count 557 H, MPV 10.7, Immature Gran % (Auto) 0.600, Neut % (Auto) 81.6 H, Lymph % (Auto) 7.5 L, [place] % (Auto) 8.6, Eos % (Auto) 1.5, Baso % (Auto) 0.2, Absolute Neuts (auto) 13.1 H, Absolute Lymphs (auto) 1.20, Nucleated RBC % 0 05/30/20 05:20: Sodium 143, Potassium 4.2, Chloride 103, Carbon Dioxide 37.0 H, Anion Gap 3 L, BUN 29 H, Creatinine 0.72, Estim Creat Clear Calc 51.88, Est GFR (MDRD) Af Amer 136, Est GFR (MDRD) Non-Af 113, BUN/Creatinine Ratio 40.1 H, Glucose 111 H, Calcium 8.8 05/30/20 09:50: Blood Type B POSITIVE, Antibody Screen NEGATIVE, Crossmatch See Detail Current Medications Acetaminophen (Acetaminophen 650 Mg/20 Ml Udc) 650 mg GT Q6H PRN PRN PRN Reason: Pain Score 1-10/Temp > 100.7 F Last Admin: 05/30/20 08:20 Dose: 650 mg Documented by: Al Hydroxide/Mg Hydroxide (Mag Hydrox/Al Hydrox/Simeth 30 Ml Udc) 30 ml GT Q6H PRN PRN PRN Reason: Gastric Burning Albuterol/Ipratropium (Ipratropium/Albuterol Sulfate 3 Ml Ampul.Neb) 3 ml INHALATION Q4HWA.RT [facility] Last Admin: 05/30/20 11:08 Dose: 3 ml Documented by: Amlodipine Besylate (Amlodipine 5 Mg Tablet) 5 mg GT DAILY [facility] Last Admin: 05/30/20 09:39 Dose: 5 mg Documented by: Budesonide (Budesonide Respules 0.5 Mg/2 Ml Ampul.Neb.) 0.5 mg INHALATION DAILY.RT [facility] Last Admin: 05/30/20 07:01 Dose: 0.5 mg Documented by: Calamine/Phenol (Menthol/Lanolin/Calamine/Znox 113 Gm Tube) 1 applic TOPICAL TID [facility]; Protocol Last Admin: 05/30/20 13:39 Dose: 1 applic Documented by: Furosemide (Furosemide 20 Mg/2 Ml Vial) 20 mg IV X1 ONE Stop: 05/30/20 17:01 Glatiramer Acetate (Glatiramer Acetate 40 Mg/Ml Syringe) 40 mg SC SUTUTH@1000 [facility] Last Admin: 05/28/20 17:35 Dose: 40 mg Documented by: Vancomycin IV Pharmacy to Dose (1 each/ Sodium Chloride) 500 mls @ 250 mls/hr IV X1 PRN; Protocol PRN Reason: Rx to Dose Sodium Chloride () 250 mls @ 15 mls/hr IV .[id number] PRN PRN Reason: Saline Flush Last Infusion: 05/28/20 06:15 Dose: 15 mls/hr Documented by: Sodium Chloride () 250 mls @ 15 mls/hr IV .[id number] PRN PRN Reason: Additional IVPB Infusion Enteral Nutritional Formula (Jevity 1.5) 1,000 mls @ 50 mls/hr GT .Q20H [facility] Last Admin: 05/30/20 09:47 Dose: 50 mls/hr Documented by: Vancomycin HCl 750 mg/ Sodium (Chloride) 265 mls @ 250 mls/hr IV Q12H [facility] Last Infusion: 05/30/20 13:45 Dose: Infused Documented by: Pantoprazole Sodium 40 mg/ (Sodium Chloride) 110 mls @ 330 mls/hr IV Q12 [facility] Last Infusion: 05/30/20 10:27 Dose: Infused Documented by: Lactobacillus Acidophilus (Lactobacillus Acidophilus) 2 tablet GT 4X/DAY [facility] Last Admin: 05/30/20 13:38 Dose: 2 tablet Documented by: Losartan Potassium (Losartan Potassium 100 Mg Tablet) 100 mg GT DAILY [facility] Last Admin: 05/30/20 09:39 Dose: 100 mg Documented by: Ondansetron HCl (Ondansetron 4 Mg/2 Ml Vial) 4 mg IV Q8H PRN PRN PRN Reason: NAUSEA/VOMITING Oxcarbazepine (Oxcarbazepine 300 Mg Tablet) 300 mg GT 0600,1200,1800 [facility] Last Admin: 05/30/20 11:53 Dose: 300 mg Documented by: Polyethylene Glycol (Polyethylene Glycol 3350 17 Gm Packet) 17 gm GT DAILY [facility] Last Admin: 05/30/20 07:51 Dose: Not Given Documented by: Senna/Docusate Sodium (Senna/Docusate Sodium 1 Tablet) 2 tablet GT BID PRN PRN PRN Reason: Constipation Sodium Chloride (0.9% Saline Lock 10 Ml Syringe) 10 - 40 ml IV UD PRN PRN Reason: SALINE FLUSH Last Admin: 05/30/20 13:41 Dose: 10 ml Documented by: STROKE Vital Signs/Narrative: Vital Signs Temp Pulse Resp BP Pulse Ox 05/30/20 15:24 97.6 F L 77 28 H 126/62 H 96 05/30/20 15:03 94 05/30/20 14:22 97.2 F L 78 28 H 126/62 H 95 05/30/20 14:10 98.1 F 75 28 H 127/57 H 97 Medical Necessity - Tobacco Use Smoking Status: Former smoker Tobacco Use: Non-smoker Assessment/Plan All Active Problems (Last Reviewed 06/27/19 @ 10:18 by Greer Don) Pneumonia (Acute) Sepsis (Acute) Right kidney stone (Acute) Aspiration pneumonia (Acute) Cellulitis of right arm (Acute) Acute respiratory failure (Acute) COPD exacerbation (Acute) #Acute hypoxic and hypercapnic respiratory failure due to aspiration pneumonia * Now up to 40 L of oxygen via airVo * has PEG tube in place. * blood cultures growing MRSA * on IV vancomycin and IV unasyn * get 2D echo o/a of MRSA bacteremia * titrate oxygen to maintain sats >90% * ID on board. TTE was negative for any vegetations * repeat blood cultures pending * #Sepsis due to Aspiration pneumonia and UTI: as above. aspiration precautions. #Acute on chronic anemia * Due to acute GI bleed. * Hemoglobin dropped to 6.6. Nurses she notes that the patient has some dark stool today. This may likely be due to GI bleeding. Lovenox discontinued. Patient started on IV pantoprazole 40 mg twice daily. To be transfused units of packed red blood cells. * does not want any further GI work-up with surgery. We will therefore not consult surgery. * Repeat hemoglobin after he was transfused 2 units of packed red blood cells. * #Aspiration pneumonia: as above. speech therapy on board #UTI: urine culture growing MRSA. on IV vancomycin #Multiple sclerosis with lower extremity contractures * on trilepta, ampyra and cymbalta #Hypertension: on amlodipine and losartan #Nephrolithiasis: urology on board. Advocate conservative management now #Thromobocytosis: * platelets are down to 557 today. Will continue to trend #GERD: on IV PPI. Nutrition: on tube feeding. Nutrition on board DVT prophylaxis: lovenox Prognosis: Very poor. Disposition: For transfer to inpatient hospice unit tomorrow. Patient is to get second Covid shot tomorrow. discussed with patient and patient does not want second Covid shot. I also did inform that I did not think it would be medically beneficial for him to receive the Covid shots in light of him being so critically ill and going to hospice tomorrow. Inpatient E&M: [id number] [facility] L3
[2020-05-30] MEDS: Furosemide 20 MG/2 ML VIAL IV (17:19)
[2020-05-30 22:45] LABS: Hematocrit 29.1 % (40-54); Hemoglobin 9.3 g/dL (13.0-16.5)
[2020-05-30] MEDS: morphine (oral solution) 10MG/0.5ML Syringe 5 MG SL (23:53)
[2020-05-30] MEDS: Atropine Sulfate 1% 2 ml Bottle 4 DRP PO (23:59)
[2020-05-31] VITALS (11 sets, daily range): BP systolic 120–129; BP diastolic 60–68; PULSE 71–79; RESP 15–28; TEMP 36.1–36.2; O2SAT 92–99
[2020-05-31] MEDS: Menthol/Lanolin/Calamine/Znox 113 GM Tube 1 APPLIC TOPICAL (00:01)
[2020-05-31] MEDS: 0.9% Saline Lock 10 ML Syringe IV (00:05)
[2020-05-31] MEDS: morphine (oral solution) 10MG/0.5ML Syringe 5 MG SL ×3 (03:54→12:16)
[2020-05-31] MEDS: Atropine Sulfate 1% 2 ml Bottle 4 DRP PO (04:01)
[2020-05-31] MEDS: Jevity 1.5 1,000 ML 50 ML GT (06:18)
[2020-05-31] MEDS: Acetaminophen 650 MG/20 ML UDC GT (06:18)
[2020-05-31] MEDS: OXcarbazepine 300 MG Tablet GT ×2 (06:19→12:16)
[2020-05-31] MEDS: Budesonide Respules 0.5 MG/2 ML AMPUL.NEB. INHALATION (06:56)
[2020-05-31] MEDS: Ipratropium/Albuterol Sulfate 3 ML AMPUL.NEB INHALATION ×2 (06:56→10:55)
[2020-05-31 07:11] LABS: Absolute Lymphocyte Count 1.12 X10^3/uL (0.83-4.51); Absolute Neutrophil Count 14.5 X10^3/uL (2.0-7.7); Basophil# 0.04 X10^3/uL; Basophil% 0.2 % (0-1); Eosinophil# 0.26 X10^3/uL; Eosinophils% 1.5 % (0-5); Hematocrit 28.7 % (40-54); Hemoglobin 9.2 g/dL (13.0-16.5); Lymphocyte # 1.12 X10^3/ul (4.0); Lymphocyte % 6.4 % (19-41); Mean Corp Hgb Conc 32.1 g/dL (32-36); Mean Corpuscular Volume 93.5 fL (80-94); Mean Platelet Vol. 11.1 fl (6.2-12.0); Monocyte# 1.46 X10^3/uL; Monocyte% 8.4 % (0-10); NRBC Flagged by Analyzer 0.1 % (0-5); Neutrophil # 14.49 X10^3/uL (2.7-7.7); Platelet Count 501 K/mm3 (150-450); RBC Distribution Width CV 16.7 % (11.6-14.6); RBC Distribution Width SD 55.4 fl (35.1-43.9); Red Blood Count 3.07 M/mm3 (4.6-6.2); White Blood Count 17.5 K/mm3 (4.4-11.0)
[2020-05-31 07:48] LABS: Anion Gap 3 (5-15); BUN 27 mg/dL (7-18); BUN/Creat Ratio 39.2 RATIO (10-20); Calcium,Total 8.7 mg/dL (8.5-10.1); Chloride 102 mmol/L (98-107); Creatinine, Serum 0.69 mg/dL (0.70-1.30); EST Glomerular Filtration Rate 119 mL/min (>60); Est Glom Filt Rate - Afr Amer 144 mL/min (>60); Glucose 91 mg/dL (74-106); Potassium 4.4 mmol/L (3.5-5.1); Sodium Level 141 mmol/L (136-145)
[2020-05-31] MEDS: Losartan Potassium 100 MG Tablet GT (11:08)
[2020-05-31] MEDS: amLODIPine 5 MG Tablet GT (11:08)
[2020-05-31] MEDS: GLATIRAMER ACETATE 40 MG/ML SYRINGE SC (11:09)
--- NOTE | 2020-05-31 12:06 | CASEMGMT ---
Social Work Note ELAINE received call from Nely at [facility] requesting DNR be faxed. ELAINE faxed DNR. Nely also asking about pt's tube feeds, ELAINE informed Nely that this worker is not sure, will check with nursing. ELAINE placed a call back to Nely at [facility] updating her DNR was faxed. Nely states she spoke with RN and tube feeds are all taken care of now. Nely states Hospice will be transporting pt at 1:00pm. RN updated. Discharge is in. Cherie Tariq SET KEY DRIVER, CATH LABORATORY TECHNICIAN
--- NOTE | 2020-05-31 17:50 | DS.PCM_ITS ---
Discharge Date and Diagnosis - Problem List Patient Problems: Active and Suspected Problems (Last Reviewed 06/27/19 @ 10:18 by Greer Don) Pneumonia (Acute) Sepsis (Acute) Right kidney stone (Acute) Aspiration pneumonia (Acute) Acute respiratory failure (Acute) Date of Admission: 05/28/20 Date of Discharge: 05/31/20 - Primary Discharge Diagnosis Acute Problems: Active Problems (Last Reviewed 06/27/19 @ 10:18 by Greer Don) Pneumonia (Acute) Sepsis (Acute) Right kidney stone (Acute) Aspiration pneumonia (Acute) Acute respiratory failure (Acute) - Secondary Discharge Diagnosis Chronic Problems: Chronic Problems (Last Reviewed 06/27/19 @ 10:18 by Greer Don) 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) Ulcerative colitis (Chronic) Seizure disorder (Chronic) Depression (Chronic) Physical debility (Chronic) Hypertension (Chronic) COPD (chronic obstructive pulmonary disease) (Chronic) Multiple sclerosis (Chronic) Dysphagia (Chronic) Anemia (Chronic) BPH (benign prostatic hypertrophy) (Chronic) Vitamin D deficiency (Chronic) GERD (gastroesophageal reflux disease) (Chronic) Ulcerative esophagitis (Chronic) Gout (Chronic) Hospital Course and Treatment Imaging Results: Diagnostic Data Abdomen/Pelvis CT 05/24/20 15:00 IMPRESSION: 1.5 cm x 0.8 cm calculus in the right renal pelvis at the junction with the right ureter causing mild degree of obstruction. Bilateral intrarenal calculi. Diffuse bladder wall thickening as described with focal calcifications within the bladder wall. Electronically Signed: Bob Jolley MD at 15:54 EDT , Service support , Chest X-Ray 05/27/20 11:06 IMPRESSION: No change in right lower lobe pneumonia. Electronically Signed: Aleksandar Matias MD at 11:55 EDT Tel , Service support , urology hospice palliative care infectious diseases Operations: None Procedures: None Summary of Care Provided: The patient is a 75 year old M with an extensive past medical history as outlined including history of multiple sclerosis, currently bedridden and complicated by oropharyngeal dysphagia with a PEG tube in place. His was this primary caregiver. He was admitted through the ED on 05/24/2020 with a complaint of 2-week history of worsening weakness and urinary frequency. He had had no choking episodes at home and no fever or chills. He usually wear 2 L of oxygen. Urine showed 3+ bacteria with 25-50 WBC. Chest x-ray showed no acute cardiopulmonary pathology and CT of the abdomen and pelvis showed 1.5 x 0.8 cm calculus in the right renal pelvis at the junction with the ureter causing mild degree of obstruction, bilateral intrarenal calculi and diffuse bladder wall thickening as well as focal calcification within the bladder wall. He was admitted and managed for UTI and acute aspiration pneumonia. He was started on IV Unasyn. Blood and urine cultures were obtained. Blood cultures grew MRSA and so ID was consulted and he was started on IV vancomycin. 2D echo done was negative for any vegetations. Urology was also consulted and didnt think there was any acute intervention needed. Patient didnt improve significantly and remained very lethargic. His oxygen requirements kept on increasing up to when he was on 40 L of oxygen via referral. Palliative and hospice were consulted, and patient and his were agreeable to go to inpatient hospice facility. Patient was discharged to hospice on . Patient was seen and examined prior to discharge. He was very lethargic. Review of systems was negative. Labs and vitals reviewed. Home meds reviewed and reconciled. O/E: Vital Signs Temp Pulse Resp BP Pulse Ox 97.2 F L 79 28 H 120/64 95 05/31/20 12:19 05/31/20 10:56 05/31/20 12:19 05/31/20 12:19 05/31/20 12:19 General: No apparent distress,very lethargic HEENT: Atraumatic, PERRLA, EOMI, Normocephalic Oral: Moist Mucosa Neck: Supple, No JVD Lungs: rhonchi and coarse crackles in all lung osborn bilaterally, on 40L of oxygen via AirVO Cardiovascular: Regular rate, Regular Rhythm, Normal S1, Normal S2, No murmurs Abdomen: Soft, Non Tender, Non-Distended, No Hepato-splenomegaly Extremities: Capillary Refill Less than 3 Seconds, Edema Skin: - intact, no rash Musculoskeletal: Cachexia - Temporal wasting, - - Lower extremity contractures Neurological: - - Lower extremity contractures with chronic weakness of his upper extremities 3 out of 5. Plan is for discharge to hospice facility. Patient Problems: Active and Suspected Problems (Last Reviewed 06/27/19 @ 10:18 by Greer Don) Pneumonia (Acute) Sepsis (Acute) Right kidney stone (Acute) Aspiration pneumonia (Acute) Acute respiratory failure (Acute) - Physical Exam Vitals/I&O's: Vital Signs Temp Pulse Resp BP Pulse Ox 97.2 F L 79 28 H 120/64 95 05/31/20 12:19 05/31/20 10:56 05/31/20 12:19 05/31/20 12:19 05/31/20 12:19 Oxygen Flow Rate (L/min) 40 Oxygen Delivery Method Airvo Weight: 124 lb 5.451 oz Body Mass Index (BMI) 17.4 Intake and Output for Last 24 Hours 05/29/20 05/30/20 05/31/20 23:59 23:59 23:59 Intake Total 978 / 978 3141 / 3141 675 / 675 Output Total 1400 / 1400 2150 / 3150 1770 / 1770 Balance -422 / -422 991 / -9 -1095 / -1095 Microbiology Past 72 Hours 05/24/20 15:25 Blood Culture (Wb) - Left Forearm Blood Culture - Final Staphylococcus aureus 05/29/20 09:44 Blood Culture (Wb) - Anticubital Left Blood Culture - Preliminary No growth in 48 hours. 05/28/20 15:26 Blood Culture (Wb) - Right Hand Blood Culture - Preliminary No growth in 48 hours. 05/27/20 17:10 Blood Culture (Wb) - Right Hand Blood Culture - Preliminary No growth in 48 hours. Laboratory Results 05/30/20 09:50: Blood Type B POSITIVE, Antibody Screen NEGATIVE, Crossmatch See Detail 05/30/20 22:22: Hgb 9.3 L, Hct 29.1 L 05/31/20 06:20: WBC 17.5 H, RBC 3.07 L, Hgb 9.2 L, Hct 28.7 L, MCV 93.5, MCH 30.0, MCHC 32.1, RDW Std Deviation 55.4 H, RDW Coeff of Ivelisse 16.7 H, Plt Count 501 H, MPV 11.1, Immature Gran % (Auto) 0.500, Neut % (Auto) 83.0 H, Lymph % (Auto) 6.4 L, [place] % (Auto) 8.4, Eos % (Auto) 1.5, Baso % (Auto) 0.2, Absolute Neuts (auto) 14.5 H, Absolute Lymphs (auto) 1.12, Nucleated RBC % 0.1 05/31/20 06:20: Sodium 141, Potassium 4.4, Chloride 102, Carbon Dioxide 36.0 H, Anion Gap 3 L, BUN 27 H, Creatinine 0.69 L, Estim Creat Clear Calc 51.70, Est GFR (MDRD) Af Amer 144, Est GFR (MDRD) Non-Af 119, BUN/Creatinine Ratio 39.2 H, Glucose 91, Calcium 8.7 Discharge Diet: Low fat/ Low Cholesterol Home Medications: Medications to take at Discharge Cholecalciferol (VIT D3) [Vitamin D3] 5,000 unit PO MARCUS 02/20/14 lansoprazole 30 mg capsule,delayed release 30 mg PO DAILY 02/19/17 budesonide 0.5 mg/2 mL suspension for nebulization 0.5 mg INHALATION QDAY #60 ml 03/25/17 Amlodipine [Norvasc] 5 mg PO DAILY 03/25/18 Duloxetine Hcl [Cymbalta] 60 mg PO DAILY 03/25/18 Losartan Potassium [Cozaar] 100 mg PO DAILY 03/25/18 Vitamin B Comp W-C [Allbee W/C Caplet, Thera B Comp/C] 1 cap PO DAILY 03/25/18 Dalfampridine [Ampyra] 10 mg PO DAILY 03/29/18 Calcium Citrate/Vitamin D3 [Calcium Cit 200 mg-D3 125 Unit] 1 ea PO BID 07/30/18 Docusate Sodium [Colace] 250 mg PO DAILY 07/30/18 Glatiramer Acetate 40 mg SQ SUTUTH@1000 10/02/18 Polyethylene Glycol 3350 [Miralax] 17 gm PO DAILY 10/04/18 Oxcarbazepine [Trileptal] 300 mg PO 0600,1200,1800 03/09/19 Dronabinol [Marinol] 5 mg PO BID 05/24/20 Ipratropium/Albuterol Sulfate [Duoneb] 3 ml INHALATION 4X/DAY 05/24/20 Multivitamin with Minerals [Multivitamins with Minerals] 1 tab PO DAILY 05/24/20 Vancomycin IV 750 mg IV Q12H 24 Days #48 vial 05/30/20 Following Prescriptions Were Given to Patient: Vancomycin IV 750 mg IV Q12H 24 Days #48 vial Prescription Printed Primary Care Physician: Mario Giraldo MD [Primary Care Provider] - Disposition: Hospice Medical Facility Patient Condition:: Poor Medical Necessity - Tobacco Use Smoking Status: Former smoker Tobacco Use: Non-smoker Meaningful Use Info Meaningful Use Diagnoses (Choose all that apply): None applicable Inpatient E&M: [id number] [facility]
== END 2020-05-31 13:40 | disposition hospice, inpatient (51) | DRG 871 ==
LOC: ED 15:15 → MS3 15:16
PROVIDERS: Family Medicine; Hospitalist; Admitting Provider Internal Medicine; Emergency Provider Student in an Organized Health Care Education/Training Program; PCP Family Medicine; Visit Provider Student in an Organized Health Care Education/Training Program
DX: A41.02 Sepsis due to Methicillin resistant Staphylococcus aureus (principal); J69.0 Pneumonitis due to inhalation of food and vomit; J96.21 Acute and chronic respiratory failure with hypoxia; J96.22 Acute and chronic respiratory failure with hypercapnia; E43 Unspecified severe protein-calorie malnutrition; K22.11 Ulcer of esophagus with bleeding; J15.212 Pneumonia due to Methicillin resistant Staphylococcus aureus; D62 Acute posthemorrhagic anemia; N20.2 Calculus of kidney with calculus of ureter; N39.0 Urinary tract infection, site not specified; K92.1 Melena; Z68.1 Body mass index [BMI] 19.9 or less, adult; K51.911 Ulcerative colitis, unspecified with rectal bleeding; J43.9 Emphysema, unspecified; F32.9 Major depressive disorder, single episode, unspecified; F41.9 Anxiety disorder, unspecified; I10 Essential (primary) hypertension; G35 Multiple sclerosis; M1A.9XX0 Chronic gout, unspecified, without tophus (tophi); K21.9 Gastro-esophageal reflux disease without esophagitis; E55.9 Vitamin D deficiency, unspecified; L89.151 Pressure ulcer of sacral region, stage 1; G40.909 Epilepsy, unspecified, not intractable, without status epilepticus; K59.00 Constipation, unspecified; N40.0 Benign prostatic hyperplasia without lower urinary tract symptoms; R35.0 Frequency of micturition; R54 Age-related physical debility; R13.12 Dysphagia, oropharyngeal phase; Z93.1 Gastrostomy status; Z66 Do not resuscitate; Z51.5 Encounter for palliative care; Z74.01 Bed confinement status; Z99.81 Dependence on supplemental oxygen; Z79.899 Other long term (current) drug therapy; Z87.891 Personal history of nicotine dependence
CPT/HCPCS: 36415; 36600; 71045; 74176; 80048; 80053; 80202; 80307; 81001; 82803; 83605; 83880; 84484; 85014; 85018; 85025; 86644; 86850; 86900; 86901; 86920; 86922; 87040; 87077; 87086; 87088; 87186; 92507; 92526; 92610; 93005; 93306; 93970; 94002; 94003; 94640; 94660; 94667; 94668; 94762; 97110; 97163; 97166; 97530; 97535; 97802; 97803; 99251; 99285; J7030; J7040; J7050; P9016; P9612; Q9957; A4216; G0463; J0295; J1940